=== PATIENT | male | born 1945 | race Caucasian/White ===

== ENCOUNTER 2023-02-12 08:01 | Emergency (ER) | payer OTHER, SELFPAY ==
[2023-02-12] VITALS (22 sets, daily range): BP systolic 78–127; BP diastolic 55–84; PULSE 63–136; RESP 6–26; TEMP 36.4; O2SAT 84–99; BMI 23.4
--- NOTE | 2023-02-12 08:04 | ECG_ITS ---
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
[2023-02-12] MEDS: DILTIAZEM HCL 25 MG/5 ML VIAL 15 MG IV (08:27)
[2023-02-12] MEDS: 0.9 % SODIUM CHLORIDE 1,000 ML 1000 ML IV (08:28)
--- NOTE | 2023-02-12 08:35 | ECG_ITS ---
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
[2023-02-12 08:36] LABS: Basophils Percent Auto 0.4 % (0.2-2.0); Eosinophils Absolute Auto 0.1 10^3/uL (0.0-0.7); Eosinophils Percent Auto 0.7 % (0.9-7.0); Hematocrit 33.5 % (42.0-54.0); Hemoglobin 11.1 g/dL (14.0-18.0); Immature Granulocytes Abs Auto 0.03 10^3/uL (0.00-0.03); Immature Granulocytes Pct Auto 0.3 % (0.0-0.5); Lymphocytes Absolute Auto 2.9 10^3/uL (1.2-3.8); Lymphocytes Percent Auto 27.3 % (20.5-60.0); Mean Corpuscular HGB Conc 33.1 g/dL (29.9-35.2); Mean Corpuscular Hemoglobin 33.3 pg (25.9-34.0); Mean Corpuscular Volume 100.6 fL (80.0-94.0); Mean Platelet Volume 9.8 fL (9.5-13.5); Monocytes Absolute Auto 0.8 10^3/uL (0.3-0.8); Monocytes Percent Auto 7.2 % (1.7-12.0); Neutrophils Absolute Auto 6.9 10^3/uL (1.4-6.5); Neutrophils Percent Auto 64.1 % (43.0-75.0); Platelet Count 185 10^3/uL (150-450); Red Blood Count 3.33 10^6/uL (4.70-6.10); Red Cell Distribution Width 14.3 % (11.0-15.0); White Blood Count 10.8 10^3/uL (4.0-11.0)
--- NOTE | 2023-02-12 08:36 | ECG_ITS ---
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
[2023-02-12 09:08] LABS: Alanine Aminotransferase 15 U/L (16-63); Albumin Globulin Ratio 0.9; Albumin Level 3.1 g/dL (3.4-5.0); Alkaline Phosphatase 82 U/L (46-116); Anion Gap 11.7; Aspartate Amino Transferase 15 U/L (15-37); BUN Creatinine Ratio 18.9; Bilirubin Total 0.4 mg/dL (0.2-1.0); Calcium 8.7 mg/dL (8.5-10.1); Carbon Dioxide 28.4 mmol/L (21.0-32.0); Chloride 102 mmol/L (98-107); Estimated GFR (African America >60 (>=60); Estimated GFR (Non-African Ame >60 (>=60); Globulin 3.4 g/dL; Glucose 160 mg/dL (74-106); Potassium 4.1 mmol/L (3.5-5.1); Sodium 138 mmol/L (136-145); Total Protein 6.5 g/dL (6.4-8.2); Troponin I High Sensitivity 12.7 pg/mL (4.0-76.1)
[2023-02-12 09:12] LABS: Lactate/Lactic Acid 1.1 mmol/L (0.4-2.0)
--- NOTE | 2023-02-12 09:35 | XR_ITS ---
The [address] [address] Patient Name: TADEO THOMAS MRN: [id number] date: 1945 Sex: M Assigned Patient Location: ER Current Patient Location: ER Accession/Order Number: [id number] Exam Date: 02/12/2023 09:42 Report Date: 02/12/2023 09:55 At the request of: CARLINE COWAN Procedure: XR chest 1V EXAM: XR chest 1V HISTORY: . TACHYCARDIA . COMPARISON: None TECHNIQUE: Single view of the chest. FINDINGS: Heart is normal in size. Bipolar pacing device is noted. Vascularity is unremarkable. Lungs are free of focal infiltrates. There is an azygous lobe noted. Arthritic changes of both shoulders are noted. XR/XR chest 1V Impression: 1. Pacer in place. 2. No acute heart or lung disease identified. Electronically authenticated by: LA SAGE Date: 02/12/2023 09:55
[2023-02-12 10:16] LABS: Bilirubin Urine NEGATIVE (NEGATIVE); Blood Urine NEGATIVE (NEGATIVE); Clarity Urine CLEAR (CLEAR); Color Urine LT. YELLOW (YELLOW); Glucose Urine UA NEGATIVE (NEGATIVE); Ketones Urine NEGATIVE (NEGATIVE); Leukocyte Esterase Urine NEGATIVE (NEGATIVE); Nitrite Urine NEGATIVE (NEGATIVE); Protein Urine NEGATIVE (NEG/TRACE); Urine Microscopic Indicated NO; Urobilinogen Urine 0.2 EU/dL (0.2-1.0)
--- NOTE | 2023-02-12 10:17 | ED.GENADUL1 ---
HPI - General Adult General Chief complaint: Weakness Stated complaint: HYPOTENSION, TACHYCARDIA Time Seen by Provider: 02/12/23 08:04 Source: patient Mode of arrival: ambulance History of Present Illness HPI narrative: the patient was sent from the [place] for evaluation after he was found to be tachycardic with hypotension. This morning meds were held because he was hypotensive. prior medical history includes atrial flutter with pacemaker placement in September. he denied any complaints, telling us that he feels the same way every day. He does have some dementia. Related Data Home Medications Medication Instructions Recorded Confirmed alogliptin 25 mg tablet 25 mg PO DAILY 02/12/23 02/12/23 apixaban 5 mg tablet (Eliquis) 5 mg PO BID 02/12/23 02/12/23 diltiazem HCl 30 mg tablet 120 mg PO DAILY 02/12/23 02/12/23 flecainide 50 mg tablet 50 mg PO Q12H 02/12/23 02/12/23 glipizide 10 mg tablet 10 mg PO BID 02/12/23 02/12/23 metformin 1,000 mg tablet 1,000 mg PO DAILY 02/12/23 02/12/23 pioglitazone 30 mg tablet 30 mg PO DAILY 02/12/23 02/12/23 pravastatin 80 mg tablet 80 mg PO DAILY 02/12/23 02/12/23 Allergies Allergy/AdvReac Type Severity Reaction Status Date / Time No Known Drug Allergies Allergy Verified 02/12/23 08:15 [facility] Medical History (Updated 02/12/23 @ 10:31 by Carline Steen) Atrial flutter ?I48.92 - Unspecified atrial flutter (ICD-10) Dementia ?F03.90 - Unspecified dementia, unspecified severity, without behavioral disturbance, psychotic disturbance, mood disturbance, and anxiety (ICD-10) Diabetes ?E11.9 - Type 2 diabetes mellitus without complications (ICD-10) Hyperlipemia ?E78.5 - Hyperlipidemia, unspecified (ICD-10) Hypotension ?I95.9 - Hypotension, unspecified (ICD-10) Pacemaker ?Z95.0 - Presence of cardiac pacemaker (ICD-10) Exam Narrative Exam Narrative: Nurses notes and vital signs reviewed and patient is not hypoxic. afebrile General: Well-appearing and in no apparent distress. Skin: Warm, dry, no pallor noted. No rash. Head: Normocephalic, atraumatic. Neck: Supple, non-tender. Eye: Pupils are equal, round and EOMI. No scleral icterus. Cardiovascular: rapid and irregular heart rate. Respiratory: No accessory muscle use or respiratory distress. Lungs are clear to auscultation, no wheezing, rales or rhonchi Musculoskeletal: normal ROM, no calf or popliteal tenderness, no lower extremity edema/swelling GI: Abdomen is soft, non-distended. Normal bowel sounds. No tenderness to palpation. No rebound, guarding, or rigidity noted. Neurological: A&O x4. No cranial nerve dysfunction observed. No truncal ataxia. Moves all extremities. Sensation intact. Psychiatric: Cooperative and interactive. Normal mood and affect. Constitutional Vital Signs, click to edit/add: Last Vital Signs Temp 97.5 F L 02/12/23 08:05 Pulse 72 02/12/23 10:30 Resp 11 L 02/12/23 10:30 BP 103/63 02/12/23 10:20 Pulse Ox 99 02/12/23 10:30 O2 Del Method Room Air 02/12/23 08:18 Course Vital Signs Vital signs: Vital Signs Temperature 97.5 F L 02/12/23 08:05 Pulse Rate 136 H 02/12/23 08:05 Respiratory Rate 18 02/12/23 08:05 Blood Pressure 98/68 02/12/23 08:05 Pulse Oximetry 94 L 02/12/23 08:05 Oxygen Delivery Method Room Air 02/12/23 08:05 Temperature 97.5 F L 02/12/23 08:05 Pulse Rate 72 02/12/23 10:30 Respiratory Rate 11 L 02/12/23 10:30 Blood Pressure 103/63 02/12/23 10:20 Pulse Oximetry 99 02/12/23 10:30 Oxygen Delivery Method Room Air 02/12/23 08:18 Medical Decision Making MDM Narrative Medical decision making narrative: the patient was found to be in rapid atrial flutter. he just got to the [place] last night and apparently did not have his flecainide, which she takes for rate control. Patient was placed on tig welder and EKG obtained. Blood drawn and sent for evaluation. he received normal saline IV fluid. He also got a dose of Cardizem, which converted him to rate controlled atrial flutter. remainder of his testing was unremarkable. I spoke with the patient's . He has history of atrial flutter and his vital signs including heart rate and blood pressure normalized. I do not find any sign of infection on evaluation. Patient discharged back to the [place] and will remain on his prescribed medications. Lab Data Lab results reviewed: Yes I reviewed the patient's lab results Labs: Lab Results 02/12/23 02/12/23 Range/Units 08:22 10:00 WBC 10.8 (4.0-11.0) 10^3/uL RBC 3.33 L (4.70-6.10) 10^6/uL Hgb 11.1 L (14.0-18.0) g/dL Hct 33.5 L (42.0-54.0) % MCV 100.6 H (80.0-94.0) fL MCH 33.3 (25.9-34.0) pg MCHC 33.1 (29.9-35.2) g/dL RDW 14.3 (11.0-15.0) % Plt Count 185 (150-450) 10^3/uL MPV 9.8 (9.5-13.5) fL Neut % (Auto) 64.1 (43.0-75.0) % Lymph % (Auto) 27.3 (20.5-60.0) % [place] % (Auto) 7.2 (1.7-12.0) % Eos % (Auto) 0.7 L (0.9-7.0) % Baso % (Auto) 0.4 (0.2-2.0) % Neut # (Auto) 6.9 H (1.4-6.5) 10^3/uL Lymph # (Auto) 2.9 (1.2-3.8) 10^3/uL [place] # (Auto) 0.8 (0.3-0.8) 10^3/uL Eos # (Auto) 0.1 (0.0-0.7) 10^3/uL Baso # (Auto) 0.0 (0.0-0.1) 10^3/uL Abs Immat Gran (auto) 0.03 (0.00-0.03) 10^3/uL Imm/Tot Granulo (auto) 0.3 (0.0-0.5) % Sodium 138 (136-145) mmol/L Potassium 4.1 (3.5-5.1) mmol/L Chloride 102 (98-107) mmol/L Carbon Dioxide 28.4 (21.0-32.0) mmol/L Anion Gap 11.7 BUN 18.0 (7.0-18.0) mg/dL Creatinine 0.95 (0.70-1.30) mg/dL Est GFR ( Amer) >60 (>=60) Est GFR (Non-Af Amer) >60 (>=60) BUN/Creatinine Ratio 18.9 Glucose 160 H (74-106) mg/dL Lactate 1.1 (0.4-2.0) mmol/L Calcium 8.7 (8.5-10.1) mg/dL Total Bilirubin 0.4 (0.2-1.0) mg/dL AST 15 (15-37) U/L ALT 15 L (16-63) U/L Alkaline Phosphatase 82 (46-116) U/L Troponin I High Sens 12.7 (4.0-76.1) pg/mL NT-Pro-B Natriuret Pep 233.0 (<=1800.0) pg/mL Total Protein 6.5 (6.4-8.2) g/dL Albumin 3.1 L (3.4-5.0) g/dL Globulin 3.4 g/dL Albumin/Globulin Ratio 0.9 Urine Color Lt. yellow (YELLOW) Urine Clarity Clear (CLEAR) Urine pH 6.0 (5.0-9.0) Ur Specific [place] 1.010 (1.005-1.025) Urine Protein Negative (NEG/TRACE) mg/dL Urine Glucose (UA) Negative (NEGATIVE) mg/dL Urine Ketones Negative (NEGATIVE) mg/dL Urine Occult Blood Negative (NEGATIVE) Urine Nitrite Negative (NEGATIVE) Urine Bilirubin Negative (NEGATIVE) Urine Urobilinogen 0.2 (0.2-1.0) EU/dL Ur Leukocyte Esterase Negative (NEGATIVE) Imaging Data Chest x-ray: Radiologist's impression: Patient Name: TADEO THOMAS MRN: [id number] date: 1945 Sex: M Assigned Patient Location: ER Current Patient Location: ER Accession/Order Number: [id number] Exam Date: 02/12/2023 09:42 Report Date: 02/12/2023 09:55 At the request of: CARLINE STEEN Procedure: XR chest 1V EXAM: XR chest 1V HISTORY: . TACHYCARDIA . COMPARISON: None TECHNIQUE: Single view of the chest. FINDINGS: Heart is normal in size. Bipolar pacing device is noted. Vascularity is unremarkable. Lungs are free of focal infiltrates. There is an azygous lobe noted. Arthritic changes of both shoulders are noted. Impression: 1. Pacer in place. 2. No acute heart or lung disease identified. Electronically authenticated by: LA SAGE Date: 02/12/2023 09:55 ECG Data Attestation: I personally reviewed and interpreted this ECG as follows: Interpretation: EKG interpretation: Emergency Department physician interpretation. rapid atrial fibrillation at 129bpm. wide QRS suggesting right bundle-branch block. He does have a pacemaker. #2 EKG interpretation: Emergency Department physician interpretation. paced rhythm with bouts of rapid atrial fibrillation at 126bpm. and bundle branch block is once again present. #3 EKG interpretation: Emergency Department physician interpretation. normal sinus rhythm at 70bpm with occasional electronic pacing. No ST segment elevation or depression. Discharge Plan Discharge Chief Complaint: Weakness Clinical Impression: Atrial fibrillation with rapid ventricular response Patient Disposition: Home, Self-Care Time of Disposition Decision: 10:31 Prescriptions / Home Meds: No Action diltiazem HCl 30 mg tablet 120 mg PO DAILY metformin 1,000 mg tablet 1,000 mg PO DAILY pioglitazone 30 mg tablet 30 mg PO DAILY Eliquis 5 mg tablet 5 mg PO BID alogliptin 25 mg tablet 25 mg PO DAILY flecainide 50 mg tablet 50 mg PO Q12H glipizide 10 mg tablet 10 mg PO BID pravastatin 80 mg tablet 80 mg PO DAILY Instructions: A-fib (Atrial Fibrillation) (ED) Stand Alone Forms: Portal Instructions Referrals: Physician,Non-Staff, [Physician] - 1 week Discharge Date/Time: 02/12/23 10:40
== END 2023-02-12 10:40 | disposition home or self-care (01) ==
PROVIDERS: Emergency Provider Emergency Medicine; PCP Internal Medicine
DX: I48.91 Unspecified atrial fibrillation (principal); F03.90 Unspecified dementia, unspecified severity, without behavioral disturbance, psychotic disturbance, mood disturbance, and anxiety; E11.9 Type 2 diabetes mellitus without complications; E78.5 Hyperlipidemia, unspecified; I48.92 Unspecified atrial flutter; Z95.0 Presence of cardiac pacemaker; Z79.01 Long term (current) use of anticoagulants; Z79.84 Long term (current) use of oral hypoglycemic drugs; Z79.899 Other long term (current) drug therapy
CPT/HCPCS: 36415; 71045; 80053; 81003; 83605; 83880; 84484; 85025; 87040; 93005; 96374; 99285

== ENCOUNTER 2023-03-18 16:26 | Emergency (ER) | payer OTHER, SELFPAY ==
--- OUTSIDE RECORDS SUMMARY | 2023-03-18 16:39 | XMS_ITS | CCD ---
Author Name Unknown Address [address] [place] [address] Organization [facility] Care Team Providers Care Cardiograph Operator Name Role Phone MD Aracelis Pedroza Primary Care Provider MD Aracelis Pedroza Attending Provider DO Uriah Wang Emergency Provider [phone] MD Charlie Varner Admit Provider MD Charlie Varner Attending Provider FLORENCE Gray Other Provider Unavailable DO Farshad Varela Other Provider [phone] MD Fior Saleem Other Provider MD Ketan Lucero Other Provider MD Samra Garza Other Provider MD Kelvin Gil Other Provider RICARDO Landon Other Provider MD Cheryl Das Other Provider MD Nabeel Ojdea Other Provider MD Nikolay Barragan Other Provider Velma [facility] Adelaida Goodson Other Provider [phone] MD Izabella Henderson Other Provider Aracelis Pedroza Unavailable Unavailable Unavailable Dr. Aracelis Pedroza Primary Care UnavailOlga Mendes Attending Unavailable Dr. Aracelis Pedroza Primary Care Unavailab Olga Lopez Attending Unavailable Olga Wyatt Referring Unavailable Dr. Aracelis Pedroza Primary Care Unavailab Olga Lopez Referring Unavailable Preston, Dr. Aracelis Mane Primary Care Unavailab Olga Lopez Attending Unavailable Preston, Dr. Aracelis Mane Primary Care Unavailab ric Lucero II, Dr. Ketan Yen Attending Unavailable Emily RM, Dr. Ketan Yen Referring Unavailable Preston, Dr. Aracelis Mane Primary Care Unavailab ric Lucero II, Dr. Ketan Yen Attending Unavailable Aracelis Pedroza MD Primary Care Provider MD Aracelis Pedroza Primary Care Provider [phone] MD Ketan Lucero Attending Provider DO Nicolas Zavala Emergency Provider MD Jennifer Morris Admit Provider MD Jennifer Cruz Attending Provider [phone] DO Nicolas Zavala Emergency Provider MD Jennifer Morris Admit Provider MD Miguel Hinson Attending Provider [phone] Miguel Hinson Attending Unavailable Shelly Gray Consulting Unavailable [facility] Primary Care Unavailable Alahmjaneth, Alaa Admitting Unavailable Farshad Varela Consulting Unavailable Stiven, Fior Consulting Unavailable Ketan Lucero Consulting Unavail able Samra Garza Consulting Unavailable Kelvin Gil Consulting Unavailab Olga Herrera Consulting Unavailable Cheryl Das Consulting Unavailable Nabeel Ojeda Consulting Unavailab Nikolay Nuñez Consulting Unavailable Adelaida Carreon Consulting Unavailable Izabella Henderson Consulting Unavailable Aracelis Pedroza Admitting Unavailable Aracelis Pedroza Primary Care Unavailable Aracelis Pedroza Attending Unavailable Ketan Lucero Attending Unavail able [facility] Ketan Lucero Admitting Unavail able Ketan Lucero Attending Unavail able Preston Aracelis Primary Care Unavailable Ketan Lucero Admitting Unavail able Telly, Charlie Admitting Unavailable Telly, Charlie Attending Unavailable Shelly Gray Consulting Unavailable [facility] Primary Care Unavailable Farshad Varela Consulting Unavailable Fior Saleem Consulting Unavailable Ketan Lucero Consulting Unavail able Samra Garza Consulting Unavailable Kelvin Gil Consulting Unavailab Olga Herrera Consulting Unavailable Cheryl Das Consulting Unavailable Nabeel Ojeda Consulting Unavailab Nikolay Nuñez Consulting Unavailable Adelaida Carreon Consulting Unavailable Izabella Henderson Consulting Unavailable KETAN LUCERO Attending Unavailable ARACELIS PEDROZA Primary Care Unavailable KETAN LUCERO Attending Unavailable SAMRA GARZA Referring Unavailable ARACELIS PEDROZA Primary Care Unavailable Unavailable Unavailable Unavailable Medications Current Medications Medication Drug Class(es) Dates Sig (Normalized) Sig (Original) alogliptin 25 mg oral tablet (14 sources) Start: 09-14-2022 take 25 mg by mouth once daily Alogliptin Active 25 MG PO Daily September 13, 2022 11:00pm take 1 tablet by mouth once kyleigh y Alogliptin Benzoate TABS TAKE 1 TABLET BY MOUTH ONCE DAILY Quantity: 0 Refills: 0 Ordered: 25-Sep-2022 DO Active apixaban 5 mg oral tablet (12 sources) Factor Xa Inhibitor Start: 03-01-2023 End: 02-29-2024 take 1 tablet by mouth twice daily apixaban (Eliquis) 5 mg tablet Indications: Atrial fibrillation, unspecified type (CMS/HCC) Take 1 tablet (5 mg) by mouth 2 times a day. 60 tablet 3 03/01/2023 02/29/2024 Active Start: 02-02-2023 take 5 mg by mouth twice daily Apixaban Active 5 MG PO Twice daily February 02, 2023 12:00am Start: 09-30-2022 End: 03-01-2023 take 1 tablet by mouth twice daily Eliquis 5 MG Oral Tablet Take 1 tablet twice daily Quantity: 60 Refills: 0 Ordered: 30-Sep-2022 Ketan Lucero MD Start : 30-Sep-2022 Active new start dilTIAZem hydrochloride 30 mg oral tablet (15 sources) Calcium Channel Josefa Start: 02-02-2023 take 120 mg by mouth once daily Diltiazem Hcl Active 120 MG PO Daily February 02, 2023 1:15pm Start: 11-25-2022 End: 01-07-2024 take 1 capsule by mouth once daily dilTIAZem CD (Cardizem CD) 120 mg 24 hr capsule Indications: Hypertension, benign Take 1 capsule (120 mg) by mouth once daily. 90 capsule 3 01/07/2023 03/01/2023 Discontinued (Side effects) Start: 09-18-2022 End: 02-02-2023 take 30 mg by mouth four times daily Diltiazem Hcl Discontinued 30 MG PO Four times daily 120 September 17, 2022 11:00pm February 02, 2023 1:05pm flecainide acetate 50 mg oral tablet (3 sources) Antiarrhythmic Start: 02-19-2023 End: 02-29-2024 take 1 tablet by mouth twice daily flecainide (Tambocor) 50 mg tablet Indications: Atrial fibrillation, unspecified type (CMS/HCC) Take 1 tablet (50 mg) by mouth 2 times a day. 180 tablet 3 03/01/2023 02/29/2024 Active Start: 02-05-2023 take 50 mg by mouth every twelve hours Flecainide Active 50 MG PO Q12H 60 February 05, 2023 12:00am glipiZIDE 10 mg oral tablet (10 sources) Sulfonylurea Start: 02-02-2023 take 10 mg by mouth twice daily Glipizide Active 10 MG PO Twice daily February 02, 2023 12:00am take 1 tablet by mouth once kyleigh y glipiZIDE 10 MG Oral Tablet TAKE 1 TABLET DAILY DIRECTED. Quantity: 0 Refills: 0 Ordered: 21-Oct-2022 DO Active metFORMIN hydrochloride 1000 mg oral tablet (10 sources) Biguanide Start: 02-02-2023 take 1000 mg by mouth once daily Metformin Active 1000 MG PO Daily February 02, 2023 12:00am take 1 tablet by mouth twice lilo ly metFORMIN (Glucophage) 1,000 mg tablet Take 1 tablet (1,000 mg) by mouth 2 times a day. 0 Active take 2 tablets by mouth once lilo ly metFORMIN (Glucophage) 1,000 mg tablet Take 2 tablets (2,000 mg) by mouth once daily. 0 Active multivitamin tablet (2 sources) take 1 tablet by mouth once daily multivitamin tablet Take 1 tablet by mouth once daily. 0 Active pioglitazone 30 mg oral tablet (14 sources) Peroxisome Proliferator Receptor alpha Agonist, Peroxisome Proliferator Receptor gamma Agonist, Thiazolidinedione Start: 023 take 30 mg by mouth once daily Pioglitazone Active 30 MG PO Daily September 13, 2022 11:00pm pravastatin sodium 80 mg oral tablet (14 sources) HMG-CoA Reductase Inhibitor Start: 023 take 80 mg by mouth once daily Pravastatin Active 80 MG PO Daily September 13, 2022 11:00pm vitamin b12 1 mg extended release oral tablet (8 sources) Vitamin B12 take 1 tablet by mouth once daily cyanocobalamin, vitamin B-12, (Vitamin B-12) 1,000 mcg tablet extended release Take 1 tablet (1,000 mcg) by mouth once daily. 0 Active vitamin e 180 mg oral capsule (2 sources) take 1 capsule by mouth once daily vitamin E 180 mg (400 unit) capsule Take 1 capsule (400 Units) by mouth once daily. 0 Active Completed/Discontinued Medications Medication Drug Class(es) Dates Sig (Normalized) Sig (Original) aspirin 81 mg delayed release oral tablet (4 sources) Platelet Aggregation Inhibitor, Nonsteroidal Anti-inflammatory Drug take 1 tablet by mouth once daily Aspirin 81 MG Oral Tablet Delayed Release TAKE 1 TABLET DAILY. Quantity: 90 Refills: 3 Ordered: 21-Oct-2022 DO Active cholecalciferol 0.125 mg oral tablet (4 sources) Vitamin D take 1 tablet by mouth once daily Vitamin D3 125 MCG (5000 UT) Oral Tablet Take 1 tablet daily Quantity: 90 Refills: 3 Ordered: 21-Oct-2022 DO Active clindamycin 300 mg oral capsule (3 sources) Lincosamide Antibacterial Start: 09-18-2022 End: 02-02-2023 take 600 mg by mouth three times daily Clindamycin Hcl Discontinued 600 MG PO Three times daily 02 13September 17, 2022 11:00pm February 02, 2023 1:03pm digoxin 0.125 mg oral tablet (10 sources) Cardiac Glycoside Start: 09-18-2022 End: 02-11-2023 take 125 ug by mouth once daily Digoxin Discontinued 125 MCG PO Daily September 17, 2022 11:00pm February 11, 2023 12:48pm folic acid 0.8 mg oral tablet (6 sources) Start: 09-14-2022 End: 02-02-2023 take 0.8 mg by mouth once daily Folic Acid Discontinued 0.8 MG PO Daily September 13, 2022 11:00pm February 02, 2023 1:03pm take 1 tablet by mouth once kyleigh y Folic Acid 1 MG Oral Tablet TAKE 1 TABLET DAILY. Quantity: 0 Refills: 0 Ordered: 25-Sep-2022 DO Active losartan potassium 25 mg oral tablet (10 sources) Angiotensin 2 Receptor Josefa Start: 09-14-2022 End: 02-02-2023 take 25 mg by mouth once daily Losartan Discontinued 25 MG PO Daily September 13, 2022 11:00pm February 02, 2023 7:00pm methylphenidate hydrochloride 5 mg oral tablet (4 sources) Central Nervous System Stimulant Start: 09-14-2022 End: 09-14-2022 take 1 tablet by mouth twice daily Methylphenidate Hcl (Ritalin) 5 mg Tablet Discontinued 5 MG PO Twice daily September 13, 2022 11:00pm September 14, 2022 10:29pm 24 hr metoprolol succinate 50 mg extended release oral tablet (8 sources) beta-Adrenergic Josefa Start: 09-18-2022 End: 02-02-2023 take 50 mg by mouth once daily Metoprolol Succinate Discontinued 50 MG PO Daily September 17, 2022 11:00pm February 02, 2023 7:00pm Multi Vitamin TABS (6 sources) Multi Vitamin TA BS TAKE 1 TABLET DAILY. Quantity: 0 Refills: 0 Ordered: 21-Oct-2022 DO Active zolpidem tartrate 5 mg oral tablet (6 sources) gamma-Aminobutyri c Acid-ergic Agonist Start: 09-14-2022 End: 02-02-2023 take 5 mg by mouth once daily at bedtime Zolpidem Discontinued 5 MG PO Daily at bedtime September 13, 2022 11:00pm February 02, 2023 1:05pm Problems Active Problems Problem Classification Problem Date Documented Date Episodic/Chronic Cardiac dysrhythmias (20 sources) Ventricular bigeminy; Translations: [Other specified cardiac arrhythmias] Onset: 09-25-2022 Resolved: 01-07-2023 09-14-2022 Chronic Cardiac dysrhythmias (7 sources) Tachyarrhythmia ; Translations: [Tachycardia, unspecified] 09-14-2022 Episodic Conduction disorders (16 sources) Cardiac pacemaker in situ; Translations: [Cardiac pacemaker in situ] Onset: 11-12-2022 01-07-2023 Chronic Diabetes mellitus without complication (11 sources) Type 2 diabetes mellitus without complication; Translations: [Diabetes mellitus without mention of complication, type II or unspecified type, not stated as uncontrolled] Onset: 01-06-2023 01-06-2023 Chronic Disorders of lipid metabolism (15 sources) Mixed hyperlipidemia; Translations: [Mixed hyperlipidemia] Onset: 01-06-2023 01-07-2023 Chronic Essential hypertension (13 sources) Benign hypertension; Translations: [Benign essential hypertension] Onset: 01-06-2023 01-07-2023 Chronic Other aftercare (10 sources) Drug therapy finding; Translations: [Long-term (current) use of anticoagulants] Onset: 01-06-2023 01-07-2023 Episodic Other aftercare (2 sources) supervisor intermediates (current) use of anticoagulants; Translations: [USP (current) use of anticoagulants] Onset: 01-06-2023 Episodic Other circulatory disease (2 sources) Low blood pressure; Translations: [Hypotension, unspecified] 02-02-2023 Episodic Other circulatory disease (2 sources) Hypotension, unspecified; Translations: [Hypotension, unspecified] 02-02-2023 Episodic Other nutritional; endocrine; and metabolic disorders (8 sources) Overweight in adulthood with body mass index of 25 or more but less than 30; Translations: [Overweight] Onset: 01-06-2023 01-06-2023 Episodic Other screening for suspected conditions (not mental disorders or infectious disease) (17 sources) Echocardiogram abnormal; Translations: [Nonspecific (abnormal) findings on radiological and other examination of other intrathoracic organs] Onset: 11-12-2022 01-06-2023 Episodic Screening and history of mental health and substance abuse codes (8 sources) Ex-smoker; Translations: [Personal history of tobacco use] Onset: 01-06-2023 01-06-2023 Episodic Comment on above: quit in the s; Unclassified (1 source) Contact with and (suspected) exposure to COVID-19; Translations: [Contact with and (suspected) exposure to COVID-19] Onset: 11-12-2022 Unclassified (1 source) Tachycardia, unspecified; Translations: [Tachycardia, unspecified] Onset: 02-03-2023 Unclassified (1 source) Encounter for checking and testing of cardiac pacemaker pulse generator [battery]; Translations: [Encounter for checking and testing of cardiac pacemaker pulse generator [battery]] Onset: 11-17-2022 Unclassified (1 source) Unspecified abnormalities of heart beat; Translations: [Unspecified abnormalities of heart beat] Onset: 09-11-2022 Past or Other Problems Problem Classification Problem Date Documented Da te Episodic/Chronic Syncope (7 sources) Near syncope; Translations: [Syncope and collapse] Onset: 09-14-2022 09-14-2022 Episodic Unclassified (2 sources) Onset: 01-07-2023 Resolved: 03-01-2023 01-07-2023 Results Test Name Value Interpretation Reference Range Facility ECG 12 [place] 03-03-2023 Atrial ventricular p aced rhythm with occasional PVCs Left axis deviation Conduction abnormality predominantly due to pacing QTc difficult to assess, but appears to be 485 ms. [facility] Work Phone: Alanine aminotransferase [En zymatic activity/volume] in Serum or PlasmaOrdered By: Miguel Hinson on 02-07-2023 ALT [Catalytic activity/Vol] 11 U/L 7-52 [facility] Albumin [Mass/volume] in Ser um or Plasma by Bromocresol green (BCG) dye binding methoOrdered By: Miguel Hinson on 02-07-2023 Albumin BCG dye [Mass/Vol] 3.7 g/dL 3.5-5.7 [facility] Alkaline phosphatase [Enzyma tic activity/volume] in Serum or PlasmaOrdered By: Miguel Murdockr on 02-07-2023 ALP [Catalytic activity/Vol] 74 U/L 34-104 [facility] Aspartate aminotransferase [ Enzymatic activity/volume] in Serum or PlasmaOrdered By: Miguel Murdockr on 02-07-2023 AST [Catalytic activity/Vol] 13 U/L 13-39 [facility] Basophils Auto (Bld) [#/Vol] Ordered By: Obkatherine Murdockr on 02-07-2023 Basophils (Bld) [#/Vol] 0.0 10*3/uL 0.0-0.2 [facility] Basophils/100 WBC Auto (Bld) Ordered By: Miguel Murdockr on 02-07-2023 Basophils/100 WBC (Bld) 0.2 % . [facility] Bilirubin.total [Mass/volume ] in Serum or PlasmaOrdered By: Objacquidajustino Daromar on 02-07-2023 Bilirubin [Mass/Vol] 0.4 mg/dL 0.3-1.[address] [facility] Calcium [Mass/volume] in Ser um or PlasmaOrdered By: Objacquidajustino Daromar on 02-07-2023 Calcium [Mass/Vol] 8.9 mg/dL 8.6-10.3 [facility] Carbon dioxide, total [Moles /volume] in Serum or PlasmaOrdered By: Objacquidajustino Daromar on 02-07-2023 CO2 [Moles/Vol] 28.3 mmol/L 21.0-31.0 [facility] Chloride [Moles/volume] in S estela or PlasmaOrdered By: Objacquidajustino Daromar on 02-07-2023 Chloride [Moles/Vol] 102 mmol/L 98-[address] [facility] Complete Blood Count Auto Di ffon 02-07-2023 Basophils (Bld) [#/Vol] 0.0 10*3/uL Normal 0.0-0.2 [facility] Comment on above: Result Comment: PERF ORMED BY: [facility] [address] [facility] [address] PATHOLOGIST AUDIOLOGY ASSISTANT KASSANDRA STACK M.D. Performed By: #### C BC, CMP ####[place] [address] [place] [id number] [facility] Basophils/100 WBC (Bld) 0.2 % Normal . [facility] Comment on above: Performed By: #### C BC, CMP ####[facility] [address] [place] [id number] [facility] Eosinophils (Bld) [#/Vol] 0.1 10*3/uL Normal 0.0-0.45 [facility] Comment on above: Performed By: #### C BC, CMP ####[facility] [address] [place] [id number] [facility] Eosinophils/100 WBC (Bld) 0.8 % Normal . [facility] Comment on above: Performed By: #### C BC, CMP ####[address] [address] [facility] Erythrocyte distribution width (RBC) [Ratio] 15.0 % High 12.0-14.8 [facility] Comment on above: Performed By: #### C BC, CMP ####[address] [address] [facility] Hematocrit (Bld) [Volume fraction] 35.2 % Low 38.8-50.0 [facility] Comment on above: Performed By: #### C BC, CMP ####[address] [address] [facility] Hemoglobin (Bld) [Mass/Vol] 11.8 g/dL Low 13.0-17.0 [facility] Comment on above: Performed By: #### C ERICA, CMP ####[address] [address] [facility] Lymphocytes (Bld) [#/Vol] 5.6 10*3/uL High 1.00-4.8 [facility] Comment on above: Performed By: #### C ERICA, CMP ####[place] [id number] [facility] Lymphocytes/100 WBC (Bld) 48.1 % Normal . [facility] Comment on above: Performed By: #### C ERICA, CMP ####[address] [address] [facility] MCH (RBC) [Entitic mass] 33.0 pg Normal 27.5-35.2 [facility] Comment on above: Performed By: #### C BC, CMP ####[address] [address] [facility] MCV (RBC) [Entitic vol] 98.4 fL Normal 83.5-101 [facility] Comment on above: Performed By: #### C BC, CMP ####[place] [id number] [facility] Mean Corpuscular HGB Conc 33.5 g/dL Normal 32.5-35.6 [facility] Comment on above: Performed By: #### C BC, CMP ####[facility] [place] [address] [facility] Monocytes (Bld) [#/Vol] 0.8 10*3/uL Normal 0.0-0.8 [facility] Comment on above: Performed By: #### C ERICA, CMP ####[facility] [place] [address] [facility] Monocytes/100 WBC (Bld) 6.7 % Normal . [facility] Comment on above: Performed By: #### C ERICA, CMP ####[address] [address] [facility] Neutrophils (Bld) [#/Vol] 5.2 10*3/uL Normal 1.8-7.7 [facility] Comment on above: Performed By: #### C ERICA, CMP ####[address] [address] [facility] Neutrophils/100 WBC (Bld) 44.2 % Normal . [facility] Comment on above: Performed By: #### C ERICA, CMP ####[address] [address] [facility] NRBC% 0.2 /100{WBC} Normal 0-0.5 [facility] Comment on above: Performed By: #### C ERICA, CMP ####[place] [address] [place] [address] [facility] Platelet mean volume (Bld) [Entitic vol] 7.8 fL Normal 6.6-10.1 [facility] Comment on above: Performed By: #### C ERICA, CMP ####[address] [address] [facility] Platelets (Bld) [#/Vol] 248 10*3/uL Normal 150-450 [facility] Comment on above: Performed By: #### C ERICA, CMP ####[address] [address] [place] RBC (Bld) [#/Vol] 3.58 10*6/uL Low 3.90-5.60 [facility] Comment on above: Performed By: #### C ERICA, CMP ####[facility] [place] [address] [facility] WBC (Bld) [#/Vol] 11.7 10*3/uL High 4.1-10.5 [facility] Comment on above: Performed By: #### C BC, CMP ####[place] [address] [place] [address] [facility] Comprehensive Metabolic Pane christian 02-07-2023 Albumin [Mass/Vol] 3.7 g/dL Normal 3.5-5.7 [facility] Comment on above: Performed By: #### C BC, CMP ####[place] [address] [place] [address] [facility] Albumin/Globulin [Mass ratio] 1.4 {ratio} Normal [facility] Comment on above: Performed By: #### C BC, CMP ####[address] [address] [facility] ALP [Catalytic activity/Vol] 74 U/L Normal 34-104 [facility] Comment on above: Performed By: #### C BC, CMP ####[address] [address] [facility] ALT [Catalytic activity/Vol] 11 U/L Normal 7-52 [facility] Comment on above: Performed By: #### C BC, CMP ####[place] [address] [place] [address] [facility] Anion gap [Moles/Vol] 11.4 mmol/L Normal 6.0-15.0 [facility] Comment on above: Performed By: #### C BC, CMP ####[address] [address] [facility] AST [Catalytic activity/Vol] 13 U/L Normal 13-39 [facility] Comment on above: Performed By: #### C BC, CMP ####[place] [address] [place] [address] [facility] Bilirubin [Mass/Vol] 0.4 mg/dL Normal 0.3-1.[address] [facility] Comment on above: Performed By: #### C BC, CMP ####[place] [address] [place] [address] [facility] Calcium [Mass/Vol] 8.9 mg/dL Normal 8.6-10.3 [facility] Comment on above: Performed By: #### C BC, CMP ####[place] [address] [place] [address] [facility] Chloride [Moles/Vol] 102 mmol/L Normal 98-[address] [facility] Comment on above: Performed By: #### C BC, CMP ####[address] [address] [facility] CO2 [Moles/Vol] 28.3 mmol/L Normal 21.0-31.0 [facility] Comment on above: Performed By: #### C BC, CMP ####[address] [address] [facility] Creatinine [Mass/Vol] 0.87 mg/dL Normal 0.70-1.30 [facility] Comment on above: Performed By: #### C BC, CMP ####[address] [address] [facility] Creatinine Clr Calc Pharmacy 66.61 [facility] Comment on above: Result Comment: PERF ORMED BY: [facility] [address] [place] [address] PATHOLOGIST AUDIOLOGY ASSISTANT KASSANDRA STACK M.D. Performed By: #### C BC, CMP ####[place] [id number] [facility] GFR/1.73 sq M.predicted MDRD (S/P/Bld) [Vol rate/Area] mL/min/{1.73_m2} [facility] Comment on above: Performed By: #### C BC, CMP ####[place] [id number] [facility] Globulin (S) [Mass/Vol] 2.6 g/dL [facility] Comment on above: Performed By: #### C BC, CMP ####[place] [id number] [facility] Glucose [Mass/Vol] 99 mg/dL Normal 70-100 [facility] Comment on above: Result Comment: [facility] Glucose Reference Range is dependent on time and content of last meal. Glucose of more than 200 mg/dL in a nonstressed, ambulatory subject supports the diagnosis of Diabetes Mellitus. ADA recommended reference range Performed By: #### C BC, CMP ####[place] [address] [place] [address] [facility] Potassium [Moles/Vol] 3.7 mmol/L Normal 3.5-5.1 [facility] Comment on above: Performed By: #### C BC, CMP ####[place] [address] [place] [address] [facility] Protein [Mass/Vol] 6.3 g/dL Low 6.4-8.9 [facility] Comment on above: Performed By: #### C BC, CMP ####[place] [id number] [facility] Sodium [Moles/Vol] 138 mmol/L Normal 136-145 [facility] Comment on above: Performed By: #### C BC, CMP ####[place] [address] [place] [id number] [facility] Urea nitrogen [Mass/Vol] 14 mg/dL Normal 7-25 [facility] Comment on above: Performed By: #### C BC, CMP ####[place] [id number] [facility] Creatinine [Mass/volume] in Serum or PlasmaOrdered By: Miguel Hinson on 02-07-2023 Creatinine [Mass/Vol] 0.87 mg/dL 0.70-1.30 [facility] ECG 12 lead ECGon 02-07-2023 ECG 12 lead ECG [facility] Main [place] [address] [place] [id number] Electrocardiograph Report Signed Patient: Tadeo Thomas MR#: [id number] 0 : 1945 Acct:[id number] Age/Sex: 78 / M ADM Date: 02/03/23 Loc: 3T Room: 7F7998-2 Type: ADM IN Attending Dr: Miguel Hinson MD Ordering Provider: Samra Garza MD Date of Service: 02/07/23 ECG/ECG 12 lead ECG: QTC monitor Copies to: Test Reason : Blood Pressure : / mmHG Vent. Rate : 080 BPM Atrial Rate : 072 BPM P-R Int : 314 ms QRS Dur : 164 ms QT Int : 448 ms P-R-T Axes : 055 050 035 degrees QTc Int : 516 ms wenkenbach AV conduction with occasional ventricular paced beat and atrial couplet Right bundle branch block Abnormal ECG When compared with ECG of 06-FEB-2023 08:02, Significant changes have occurred Confirmed by ARACELIS PERKINS DO ([id number]) on 02/07/2023 9:34:03 PM Referred By: Electronically Signed By:ARACELIS PERKINS DO Transcribed By: MUS Signed By Aracelis Perkins DO 02/07 Normal [facility] Eosinophils Auto (Bld) [#/Vo l]Ordered By: Miguel Hinson on 02-07-2023 Eosinophils (Bld) [#/Vol] 0.1 10*3/uL 0.0-0.45 [facility] Eosinophils/100 WBC Auto (Bl d)Ordered By: Miguel Hinson on 02-07-2023 Eosinophils/100 WBC (Bld) 0.8 % . [facility] Erythrocyte distribution wid th Auto (RBC) [Ratio]Ordered By: Miguel Hinson on 02-07-2023 Erythrocyte distribution width (RBC) [Ratio] 15.0 % 12.0-14.8 [facility] Globulin Calc (S) [Mass/Vol] Ordered By: Miguel Hinson on 02-07-2023 Globulin (S) [Mass/Vol] 2.6 g/dL [facility] Glucose [Mass/volume] in Ser um or PlasmaOrdered By: Miguel Hinson on 02-07-2023 Glucose [Mass/Vol] 99 mg/dL 70-100 [facility] Comment on above: ADA recommended refe rence rangeRandom Glucose Reference Range is dependent on time and content of last meal. Glucose of more than 200 mg/dL in a nonstressed, ambulatory subject supports the diagnosis of Diabetes Mellitus. Hematocrit Auto (Bld) [Volum e fraction]Ordered By: Miguel Hinson on 02-07-2023 Hematocrit (Bld) [Volume fraction] 35.2 % 38.8-50.0 [facility] Hemoglobin [Mass/volume] in BloodOrdered By: Miguel Hinson on 02-07-2023 Hemoglobin (Bld) [Mass/Vol] 11.8 g/dL 13.0-17.0 [facility] Leukocytes [#/volume] correc ale for nucleated erythrocytes in Blood by Automated counOrdered By: Miguel Hinson on 02-07-2023 WBC corrected for nucl RBC Auto (Bld) [#/Vol] 11.7 10*3/uL 4.1-10.5 [facility] Lymphocytes Auto (Bld) [#/Vo l]Ordered By: Miguel Stevensomar on 02-07-2023 Lymphocytes (Bld) [#/Vol] 5.6 10*3/uL 1.00-4.8 [facility] Lymphocytes/100 WBC Auto (Bl d)Ordered By: Miguel Hinson on 02-07-2023 Lymphocytes/100 WBC (Bld) 48.1 % . [facility] MCH Auto (RBC) [Entitic mass ]Ordered By: Miguel Stevensomasabas on 02-07-2023 MCH (RBC) [Entitic mass] 33.0 pg 27.5-35.2 [facility] MCHC Auto (RBC) [Mass/Vol]Or dered By: Miguel Stevensomar on 02-07-2023 MCHC (RBC) [Mass/Vol] 33.5 g/dL 32.5-35.6 [facility] MCV Auto (RBC) [Entitic vol] Ordered By: Miguel Stevensomar on 02-07-2023 MCV (RBC) [Entitic vol] 98.4 fL 83.5-101 [facility] Monocytes Auto (Bld) [#/Vol] Ordered By: Miguel Stevensomar on 02-07-2023 Monocytes (Bld) [#/Vol] 0.8 10*3/uL 0.0-0.8 [facility] Monocytes/100 WBC Auto (Bld) Ordered By: Obkatherine Stevensomar on 02-07-2023 Monocytes/100 WBC (Bld) 6.7 % . [facility] Neutrophils Auto (Bld) [#/Vo l]Ordered By: Obkatherine Stevensomar on 02-07-2023 Neutrophils (Bld) [#/Vol] 5.2 10*3/uL 1.8-7.7 [facility] Neutrophils/100 WBC Auto (Bl d)Ordered By: Obkatherine Stevensomar on 02-07-2023 Neutrophils/100 WBC (Bld) 44.2 % . [facility] No Panel InformationOrdered By: Miguel Stevensomar on 02-07-2023 Estimated GFR (CKD-EPI) > 60.0 mL/Min [facility] Creatinine Clearance (Chem 66.61 [facility] Nucleated erythrocytes [Pres ence] in Blood by Automated countOrdered By: Miguel Stevensomar on 02-07-2023 Nucleated RBC Auto Ql (Bld) 0.2 /100{WBC} 0-0.5 [facility] Platelet mean volume Auto (B ld) [Entitic vol]Ordered By: Miguel Stevensomar on 02-07-2023 Platelet mean volume (Bld) [Entitic vol] 7.8 fL 6.6-10.1 [facility] Platelets Auto (Bld) [#/Vol] Ordered By: Obkatherine Stevensomar on 02-07-2023 Platelets (Bld) [#/Vol] 248 10*3/uL 150-450 [facility] Potassium [Moles/volume] in Serum or PlasmaOrdered By: Obkatherine Stevensomar on 02-07-2023 Potassium [Moles/Vol] 3.7 mmol/L 3.5-5.1 [facility] Protein [Mass/volume] in Ser um or PlasmaOrdered By: Obkatherine Stevensomar on 02-07-2023 Protein [Mass/Vol] 6.3 g/dL 6.4-8.9 [facility] RBC Auto (Bld) [#/Vol]Ordere d By: Objacquidajustino Stevensomar on 02-07-2023 RBC (Bld) [#/Vol] 3.58 10*6/uL 3.90-5.60 [facility] Serum or plasma albumin/glob ulin mass ratioOrdered By: Objacquidah Daromar on 02-07-2023 Albumin/Globulin [Mass ratio] 1.4 {ratio} [facility] Serum or plasma anion gap de terminationOrdered By: Objacquidah Daromar on 02-07-2023 Anion gap [Moles/Vol] 11.4 mmol/L 6.0-15.0 [facility] Sodium [Moles/volume] in Ser um or PlasmaOrdered By: Obaydah Daromar on 02-07-2023 Sodium [Moles/Vol] 138 mmol/L 136-145 [facility] Urea nitrogen [Mass/volume] in Serum or PlasmaOrdered By: Obaydah Daromar on 02-07-2023 Urea nitrogen [Mass/Vol] 14 mg/dL 10-06 [facility] WBC Auto (Bld) [#/Vol]Ordere d By: Objacquidah Daromar on 02-07-2023 WBC (Bld) [#/Vol] 11.7 10*3/uL 4.1-10.5 [facility] ECG 12 lead ECGon 02-06-2023 ECG 12 lead ECG [facility] [place] [address] Electrocardiograph Report Signed Patient: Tadeo Thomas MR#: [id number] 0 : 1945 Acct:[id number] Age/Sex: 78 / M ADM Date: 02/03/23 Loc: Room: [address] [place] [address] Type: ADM IN Attending Dr: Miguel Hinson MD Ordering Provider: Samra Garza MD Date of Service: 02/06/23 ECG/ECG 12 lead ECG: QTC monitor Copies to: Test Reason : Blood Pressure : / mmHG Vent. Rate : 079 BPM Atrial Rate : 079 BPM P-R Int : 314 ms QRS Dur : 144 ms QT Int : 430 ms P-R-T Axes : 040 066 -26 degrees QTc Int : 493 ms Sinus rhythm with 1st degree AV block with premature atrial complexes Right bundle branch block T wave abnormality, consider inferolateral ischemia Abnormal ECG When compared with ECG of 05-FEB-2023 07:33, No significant change was found Confirmed by ARACELIS PERKINS DO ([id number]) on 02/06/2023 7:53:33 PM Referred By: Electronically Signed By:ARACELIS PERKINS DO Transcribed By: MUS Signed By Aracelis Perkins DO 02/06 [facility] ECG 12 lead ECGon 02-05-2023 ECG 12 lead ECG [facility] [place] [address] Electrocardiograph Report Signed Patient: Tadeo Thomas MR#: [id number] 0 : 1945 Acct:[id number] Age/Sex: 78 / M ADM Date: 02/03/23 Loc: Room: [address] [place] [address] Type: ADM IN Attending Dr: Jennifer Cruz MD Ordering Provider: Samra Garza MD Date of Service: 02/05/23 ECG/ECG 12 lead ECG: QTC monitor Copies to: Test Reason : Blood Pressure : / mmHG Vent. Rate : 077 BPM Atrial Rate : 077 BPM P-R Int : 298 ms QRS Dur : 148 ms QT Int : 434 ms P-R-T Axes : 050 069 -18 degrees QTc Int : 491 ms Sinus rhythm with 1st degree AV block with premature atrial complexes Right bundle branch block Abnormal ECG When compared with ECG of 04-FEB-2023 07:16, Previous ECG has undetermined rhythm, needs review Confirmed by ARACELIS PERKINS DO ([id number]) on 02/05/2023 6:15:44 PM Referred By: Electronically Signed By:ARACELIS PERKINS DO Transcribed By: MUS Signed By Aracelis Perkins DO 02/05 [facility] ECG 12 lead ECGon 02-04-2023 ECG 12 lead ECG [facility] Main [place] [address] [place] [address] Electrocardiograph Report Signed Patient: Tadeo Thomas MR#: [id number] 0 : 1945 Acct:[id number] Age/Sex: 78 / M ADM Date: 02/03/23 Loc: Room: [address] [place] [address] Type: ADM IN Attending Dr: Jennifer Cruz MD Ordering Provider: Samra Garza MD Date of Service: 02/04/23 ECG/ECG 12 lead ECG: QTC monitor Copies to: Test Reason : Blood Pressure : / mmHG Vent. Rate : 076 BPM Atrial Rate : 068 BPM P-R Int : 298 ms QRS Dur : 150 ms QT Int : 418 ms P-R-T Axes : 035 054 011 degrees QTc Int : 470 ms intermittent atrial paced beats in setting of sinus rhythm with first degree AV block Right bundle branch block Abnormal ECG When compared with ECG of 02-FEB-2023 12:37, No significant change was found Confirmed by ARACELIS PERKINS DO ([id number]) on 02/04/2023 10:44:36 PM Referred By: Electronically Signed By:ARACELIS PERKINS DO Transcribed By: MUS Signed By Aracelis Perkins DO 02/04 2244 [facility] Basic Metabolic Panelon 11- Anion gap [Moles/Vol] 11.0 mmol/L Normal 6.0-15.0 [facility] Comment on above: Performed By: #### B MP ####[place] [address] [place] [id number] [facility] Calcium [Mass/Vol] 8.3 mg/dL Low 8.6-10.3 [facility] Comment on above: Performed By: #### B MP ####[place] [address] [place] [id number] [facility] Chloride [Moles/Vol] 104 mmol/L Normal 98-[address] [facility] Comment on above: Performed By: #### B MP ####[place] [address] CO2 [Moles/Vol] 30.7 mmol/L Normal 21.0-31.0 [facility] Comment on above: Performed By: #### B MP ####[facility] [place] [id number] [facility] Creatinine [Mass/Vol] 0.81 mg/dL Normal 0.70-1.30 [facility] Comment on above: Performed By: #### B MP ####[place] [address] [place] [id number] [facility] Creatinine Clr Calc Pharmacy 76.15 Normal [facility] Comment on above: Result Comment: PERF ORMED BY: [facility] [address] [place] [id number] PATHOLOGIST AUDIOLOGY ASSISTANT KASSANDRA STACK M.D. Performed By: #### B MP ####[place] [address] GFR/1.73 sq M.predicted MDRD (S/P/Bld) [Vol rate/Area] mL/min/{1.73_m2} Normal [facility] Comment on above: Performed By: #### B MP ####[place] [id number] [facility] Glucose [Mass/Vol] 92 mg/dL Significant change down 70-100 [facility] Comment on above: Result Comment: [facility] Glucose Reference Range is dependent on time and content of last meal. Glucose of more than 200 mg/dL in a nonstressed, ambulatory subject supports the diagnosis of Diabetes Mellitus. ADA recommended reference range Performed By: #### B MP ####[place] [address] [place] [id number] [facility] Potassium [Moles/Vol] 3.7 mmol/L Normal 3.5-5.1 [facility] Comment on above: Performed By: #### B MP ####[place] [id number] [facility] Sodium [Moles/Vol] 142 mmol/L Significant change down 136-145 [facility] Comment on above: Performed By: #### B MP ####[facility] [place] [address] [facility] Urea nitrogen [Mass/Vol] 17 mg/dL Normal 7-25 [facility] Comment on above: Performed By: #### B MP ####[facility] [place] [id number] [facility] Alanine aminotransferase [En zymatic activity/volume] in Serum or PlasmaOrdered By: Nicolas Zavala on 02-02-2023 ALT [Catalytic activity/Vol] 18 U/L 7-52 [facility] Albumin [Mass/volume] in Ser um or Plasma by Bromocresol green (BCG) dye binding methoOrdered By: Nicolas Zavala on 02-02-2023 Albumin BCG dye [Mass/Vol] 3.7 g/dL 3.5-5.7 [facility] Alkaline phosphatase [Enzyma tic activity/volume] in Serum or PlasmaOrdered By: Nicolas Zavala on 02-02-2023 ALP [Catalytic activity/Vol] 74 U/L 34-104 [facility] Aspartate aminotransferase [ Enzymatic activity/volume] in Serum or PlasmaOrdered By: Nicolas Zavala on 02-02-2023 AST [Catalytic activity/Vol] 17 U/L 13-39 [facility] B-Type Natriuretic Peptideon 02-02-2023 Natriuretic peptide B (Bld) [Mass/Vol] 427.0 pg/mL High 5-100 [facility] Comment on above: Result Comment: PERF ORMED BY: [facility] [address] [place] [id number] PATHOLOGIST AUDIOLOGY ASSISTANT KASSANDRA STACK M.D. Performed By: #### H S TROP, BNP, CMP, CBC ####[place] [address] [place] [address] [facility] Basophils Auto (Bld) [#/Vol] Ordered By: Nicolas Zavala on 02-02-2023 Basophils (Bld) [#/Vol] 0.0 10*3/uL 0.0-0.2 [facility] Basophils/100 WBC Auto (Bld) Ordered By: Nicolas Zavala on 02-02-2023 Basophils/100 WBC (Bld) 0.3 % . [facility] Bilirubin.total [Mass/volume ] in Serum or PlasmaOrdered By: Nicolas Zavala on 02-02-2023 Bilirubin [Mass/Vol] 0.5 mg/dL 0.3-1.[address] [facility] Calcium [Mass/volume] in Ser um or PlasmaOrdered By: Nicolas Zavala on 02-02-2023 Calcium [Mass/Vol] 9.0 mg/dL 8.6-10.3 [facility] Carbon dioxide, total [Moles /volume] in Serum or PlasmaOrdered By: Nicolas Zavala on 02-02-2023 CO2 [Moles/Vol] 26.5 mmol/L 21.0-31.0 [facility] Chloride [Moles/volume] in S estela or PlasmaOrdered By: Nicolas Zavala on 02-02-2023 Chloride [Moles/Vol] 105 mmol/L 98-[address] [facility] Complete Blood Count Auto Di ffon 02-02-2023 Basophils (Bld) [#/Vol] 0.0 10*3/uL Normal 0.0-0.2 [facility] Comment on above: Result Comment: PERF ORMED BY: [facility] [address] [facility] [place] [address] PATHOLOGIST AUDIOLOGY ASSISTANT KASSANDRA STACK M.D. Performed By: #### H S TROP, BNP, CMP, CBC ####[place] [address] [place] [address] [place] Basophils/100 WBC (Bld) 0.3 % Normal . [facility] Comment on above: Performed By: #### H S TROP, BNP, CMP, CBC ####[facility] [address] [place] [address] [place] Eosinophils (Bld) [#/Vol] 0.0 10*3/uL Normal 0.0-0.45 [facility] Comment on above: Performed By: #### H S TROP, BNP, CMP, CBC ####[facility] [place] [id number] [place] Eosinophils/100 WBC (Bld) 0.2 % Normal . [facility] Comment on above: Performed By: #### H S TROP, BNP, CMP, CBC ####[address] Erythrocyte distribution width (RBC) [Ratio] 14.8 % Normal 12.0-14.8 [facility] Comment on above: Performed By: #### H S TROP, BNP, CMP, CBC ####[address] Hematocrit (Bld) [Volume fraction] 32.4 % Low 38.8-50.0 [facility] Comment on above: Performed By: #### H S TROP, BNP, CMP, CBC ####[address] Hemoglobin (Bld) [Mass/Vol] 11.0 g/dL Low 13.0-17.0 [facility] Comment on above: Performed By: #### H S TROP, BNP, CMP, CBC ####[address] Lymphocytes (Bld) [#/Vol] 3.3 10*3/uL Normal 1.00-4.8 [facility] Comment on above: Performed By: #### H S TROP, BNP, CMP, CBC ####[address] Lymphocytes/100 WBC (Bld) 35.5 % Normal . [facility] Comment on above: Performed By: #### H S TROP, BNP, CMP, CBC ####[address] MCH (RBC) [Entitic mass] 33.5 pg Normal 27.5-35.2 [facility] Comment on above: Performed By: #### H S TROP, BNP, CMP, CBC ####[address] MCV (RBC) [Entitic vol] 99.1 fL Normal 83.5-101 [facility] Comment on above: Performed By: #### H S TROP, BNP, CMP, CBC ####[address] Mean Corpuscular HGB Conc 33.8 g/dL Normal 32.5-35.6 [facility] Comment on above: Performed By: #### H S TROP, BNP, CMP, CBC ####[address] Monocytes (Bld) [#/Vol] 0.4 10*3/uL Normal 0.0-0.8 [facility] Comment on above: Performed By: #### H S TROP, BNP, CMP, CBC ####[address] Monocytes/100 WBC (Bld) 18.83 % Normal 0.00-20.00 [facility] Comment on above: Performed By: #### H S TROP, BNP, CMP, CBC ####[address] Monocytes/100 WBC (Bld) 4.8 % Normal . [facility] Comment on above: Performed By: #### H S TROP, BNP, CMP, CBC ####[address] Neutrophils (Bld) [#/Vol] 5.4 10*3/uL Normal 1.8-7.7 [facility] Comment on above: Performed By: #### H S TROP, BNP, CMP, CBC ####[address] Neutrophils/100 WBC (Bld) 59.2 % Normal . [facility] Comment on above: Performed By: #### H S TROP, BNP, CMP, CBC ####[address] NRBC% 0.6 /100{WBC} High 0-0.5 [facility] Comment on above: Performed By: #### H S TROP, BNP, CMP, CBC ####[address] Platelet mean volume (Bld) [Entitic vol] 8.2 fL Normal 6.6-10.1 [facility] Comment on above: Performed By: #### H S TROP, BNP, CMP, CBC ####[address] Platelets (Bld) [#/Vol] 227 10*3/uL Normal 150-450 [facility] Comment on above: Performed By: #### H S TROP, BNP, CMP, CBC ####[address] RBC (Bld) [#/Vol] 3.26 10*6/uL Low 3.90-5.60 [facility] Comment on above: Performed By: #### H S TROP, BNP, CMP, CBC ####[address] WBC (Bld) [#/Vol] 9.2 10*3/uL Normal 4.1-10.5 [facility] Comment on above: Performed By: #### H S TROP, BNP, CMP, CBC ####[address] Comprehensive Metabolic Pane christian 02-02-2023 Albumin [Mass/Vol] 3.7 g/dL Normal 3.5-5.7 [facility] Comment on above: Performed By: #### H S TROP, BNP, CMP, CBC ####[address] Albumin/Globulin [Mass ratio] 1.3 {ratio} Normal [facility] Comment on above: Performed By: #### H S TROP, BNP, CMP, CBC ####[place] [id number] [facility] ALP [Catalytic activity/Vol] 74 U/L Normal 34-104 [facility] Comment on above: Performed By: #### H S TROP, BNP, CMP, CBC ####[place] [id number] [facility] ALT [Catalytic activity/Vol] 18 U/L Normal 7-52 [facility] Comment on above: Performed By: #### H S TROP, BNP, CMP, CBC ####[place] [id number] [facility] Anion gap [Moles/Vol] 6.7 mmol/L Normal 6.0-15.0 [facility] Comment on above: Performed By: #### H S TROP, BNP, CMP, CBC ####[address] AST [Catalytic activity/Vol] 17 U/L Normal 13-39 [facility] Comment on above: Performed By: #### H S TROP, BNP, CMP, CBC ####[address] Bilirubin [Mass/Vol] 0.5 mg/dL Normal 0.3-1.[address] [facility] Comment on above: Performed By: #### H S TROP, BNP, CMP, CBC ####[address] Calcium [Mass/Vol] 9.0 mg/dL Normal 8.6-10.3 [facility] Comment on above: Performed By: #### H S TROP, BNP, CMP, CBC ####[address] Chloride [Moles/Vol] 105 mmol/L Normal 98-[address] [facility] Comment on above: Performed By: #### H S TROP, BNP, CMP, CBC ####[place] [id number] [facility] CO2 [Moles/Vol] 26.5 mmol/L Normal 21.0-31.0 [facility] Comment on above: Performed By: #### H S TROP, BNP, CMP, CBC ####[place] [id number] [facility] Creatinine [Mass/Vol] 0.99 mg/dL Normal 0.70-1.30 [facility] Comment on above: Performed By: #### H S TROP, BNP, CMP, CBC ####[place] [id number] [facility] Creatinine Clr Calc Pharmacy 63.41 [facility] Comment on above: Result Comment: PERF ORMED BY: [facility] [address] [place] [address] PATHOLOGIST AUDIOLOGY ASSISTANT KASSANDRA STACK M.D. Performed By: #### H S TROP, BNP, CMP, CBC ####[place] [address] GFR/1.73 sq M.predicted MDRD (S/P/Bld) [Vol rate/Area] mL/min/{1.73_m2} [facility] Comment on above: Performed By: #### H S TROP, BNP, CMP, CBC ####[address] Globulin (S) [Mass/Vol] 2.9 g/dL [facility] Comment on above: Performed By: #### H S TROP, BNP, CMP, CBC ####[address] Glucose [Mass/Vol] 227 mg/dL High 70-100 [facility] Comment on above: Result Comment: [facility] Glucose Reference Range is dependent on time and content of last meal. Glucose of more than 200 mg/dL in a nonstressed, ambulatory subject supports the diagnosis of Diabetes Mellitus. ADA recommended reference range Performed By: #### H S TROP, BNP, CMP, CBC ####[address] Potassium [Moles/Vol] 4.2 mmol/L Normal 3.5-5.1 [facility] Comment on above: Performed By: #### H S TROP, BNP, CMP, CBC ####[address] Protein [Mass/Vol] 6.6 g/dL Normal 6.4-8.9 [facility] Comment on above: Performed By: #### H S TROP, BNP, CMP, CBC ####[address] Sodium [Moles/Vol] 134 mmol/L Low 136-145 [facility] Comment on above: Performed By: #### H S TROP, BNP, CMP, CBC ####[place] [address] [place] [id number] [facility] Urea nitrogen [Mass/Vol] 24 mg/dL Normal 7-25 [facility] Comment on above: Performed By: #### H S TROP, BNP, CMP, CBC ####[place] [address] [place] [id number] [facility] Creatinine [Mass/volume] in Serum or PlasmaOrdered By: Nicolas Zavala on 02-02-2023 Creatinine [Mass/Vol] 0.99 mg/dL 0.70-1.30 [facility] Digoxinon 02-02-2023 Digoxin [Mass/Vol] ng/mL Low 0.9-2.0 [facility] Comment on above: Result Comment: Last dose: - PERFORMED BY: [place] [address] PATHOLOGIST AUDIOLOGY ASSISTANT KASSANDRA STACK M.D. Performed By: #### D IG ####[place] [id number] [facility] Digoxin [Mass/volume] in Ser um or PlasmaOrdered By: Nicolas Zavala on 02-02-2023 Digoxin [Mass/Vol] ng/mL 0.9-2.0 [facility] Comment on above: Last dose: - ECG 12 lead ECGon 02-02-2023 ECG 12 lead ECG [facility] [place] [address] Electrocardiograph Report Signed Patient: Tadeo Thomas MR#: [id number] 0 : 1945 Acct:[id number] Age/Sex: 78 / M ADM Date: 02/02/23 Loc: Room: [address] [place] [address] Type: ADM INOo Attending Dr: Jennifer Cruz MD Ordering Provider: Nicolas Zavala DO Date of Service: 02/02/23 ECG/ECG 12 lead ECG: Shortness of Breath/Dyspnea Copies to: Test Reason : Blood Pressure : 084/056 mmHG Vent. Rate : 080 BPM Atrial Rate : 080 BPM P-R Int : 308 ms QRS Dur : 138 ms QT Int : 366 ms P-R-T Axes : 057 068 017 degrees QTc Int : 422 ms paced rhythm Confirmed by Nicolas Zavala DO ([id number]) on 02/02/2023 8:03:51 PM Referred By: Electronically Signed By:Nicolas Zavala DO Transcribed By: MUS Signed By Nicolas Zavala DO 2002 [facility] ECG 12 lead ECG [facility] [place] [address] Electrocardiograph Report Signed Patient: Tadeo Thomas MR#: [id number] 0 : 1945 Acct:[id number] Age/Sex: 78 / M ADM Date: 02/02/23 Loc: Room: [address] [place] [address] Type: ADM INOo Attending Dr: Jennifer Cruz MD Ordering Provider: Nicolas Zavala DO Date of Service: 02/02/23 ECG/ECG 12 lead ECG: Shortness of Breath/Dyspnea Copies to: Test Reason : Blood Pressure : 084/056 mmHG Vent. Rate : 130 BPM Atrial Rate : 115 BPM P-R Int : 000 ms QRS Dur : 142 ms QT Int : 362 ms P-R-T Axes : 000 068 -08 degrees QTc Int : 532 ms SVT with abberancy Right bundle branch block Confirmed by Nicolas Zavala DO ([id number]) on 02/02/2023 8:04:29 PM Referred By: Electronically Signed By:Nicolas Zavala DO Transcribed By: MUS Signed By Nicolas Zavala DO 2003 [facility] ECG 12 lead ECG [facility] Main [place] [id number] Electrocardiograph Report Signed Patient: Tadeo Thomas MR#: [id number] 0 : 1945 Acct:[id number] Age/Sex: 78 / M ADM Date: 02/02/23 Loc: Room: [address] [place] [address] Type: ADM INOo Attending Dr: Jennifer Cruz MD Ordering Provider: Nicolas Zavala DO Date of Service: 02/02/23 ECG/ECG 12 lead ECG: Shortness of Breath/Dyspnea Copies to: Test Reason : Blood Pressure : 095/065 mmHG Vent. Rate : 145 BPM Atrial Rate : 032 BPM P-R Int : 000 ms QRS Dur : 138 ms QT Int : 344 ms P-R-T Axes : 000 064 002 degrees QTc Int : 534 ms SVT with RBBB Confirmed by Nicolas Zavala DO ([id number]) on 02/02/2023 8:04:59 PM Referred By: Electronically Signed By:Nicolas Zavala DO Transcribed By: MUS Signed By Nicolas Zavala DO 2004 [facility] ECG 12 lead ECG [facility] [place] [address] Electrocardiograph Report Signed Patient: Tadeo Thomas MR#: [id number] 0 : 1945 Acct:[id number] Age/Sex: 78 / M ADM Date: 02/02/23 Loc: Room: [address] [place] [address] Type: ADM INOo Attending Dr: Jennifer Cruz MD Ordering Provider: Nicolas Zavala DO Date of Service: 02/02/23 ECG/ECG 12 lead ECG: Shortness of Breath/Dyspnea Copies to: Test Reason : Blood Pressure : 095/065 mmHG Vent. Rate : 148 BPM Atrial Rate : 144 BPM P-R Int : 000 ms QRS Dur : 134 ms QT Int : 336 ms P-R-T Axes : 000 074 029 degrees QTc Int : 527 ms SVT with RBBB Confirmed by Nicolas Zavala DO ([id number]) on 02/02/2023 8:05:19 PM Referred By: Electronically Signed By:Nicolas Zavala DO Transcribed By: MUS Signed By Nicolas Zavala DO 2004 [facility] Eosinophils Auto (Bld) [#/Vo l]Ordered By: Nicolas Zavala on 02-02-2023 Eosinophils (Bld) [#/Vol] 0.0 10*3/uL 0.0-0.45 [facility] Eosinophils/100 WBC Auto (Bl d)Ordered By: Nicolas Zavala on 02-02-2023 Eosinophils/100 WBC (Bld) 0.2 % . [facility] Erythrocyte distribution wid th Auto (RBC) [Ratio]Ordered By: Nicolas Zavala on 02-02-2023 Erythrocyte distribution width (RBC) [Ratio] 14.8 % 12.0-14.8 [facility] Globulin Calc (S) [Mass/Vol] Ordered By: Nicolas Zavala on 02-02-2023 Globulin (S) [Mass/Vol] 2.9 g/dL [facility] Glucose [Mass/volume] in Ser um or PlasmaOrdered By: Nicolas Zavala on 02-02-2023 Glucose [Mass/Vol] 227 mg/dL 70-100 [facility] Comment on above: ADA recommended refe rence rangeRandom Glucose Reference Range is dependent on time and content of last meal. Glucose of more than 200 mg/dL in a nonstressed, ambulatory subject supports the diagnosis of Diabetes Mellitus. Hematocrit Auto (Bld) [Volum e fraction]Ordered By: Nicolas Zavala on 02-02-2023 Hematocrit (Bld) [Volume fraction] 32.4 % 38.8-50.0 [facility] Hemoglobin [Mass/volume] in BloodOrdered By: Nicolas Zavala on 02-02-2023 Hemoglobin (Bld) [Mass/Vol] 11.0 g/dL 13.0-17.0 [facility] Leukocytes [#/volume] correc ale for nucleated erythrocytes in Blood by Automated counOrdered By: Nicolas Zavala on 02-02-2023 WBC corrected for nucl RBC Auto (Bld) [#/Vol] 9.2 10*3/uL 4.1-10.5 [facility] Lymphocytes Auto (Bld) [#/Vo l]Ordered By: Nicolas Zavala on 02-02-2023 Lymphocytes (Bld) [#/Vol] 3.3 10*3/uL 1.00-4.8 [facility] Lymphocytes/100 WBC Auto (Bl d)Ordered By: Nicolas Zavala on 02-02-2023 Lymphocytes/100 WBC (Bld) 35.5 % . [facility] MCH Auto (RBC) [Entitic mass ]Ordered By: Nicolas Zavala on 02-02-2023 MCH (RBC) [Entitic mass] 33.5 pg 27.5-35.2 [facility] MCHC Auto (RBC) [Mass/Vol]Or dered By: Nicolas Zavala on 02-02-2023 MCHC (RBC) [Mass/Vol] 33.8 g/dL 32.5-35.6 [facility] MCV Auto (RBC) [Entitic vol] Ordered By: Nicolas Zavala on 02-02-2023 MCV (RBC) [Entitic vol] 99.1 fL 83.5-101 [facility] Monocyte distribution width [Entitic volume] in Blood by AutomatedOrdered By: Nicolas Zavala on 02-02-2023 Monocyte distribution width Auto (Bld) [Entitic vol] 18.83 % 0.00-20.00 [facility] Monocytes Auto (Bld) [#/Vol] Ordered By: Nicolas Zavala on 02-02-2023 Monocytes (Bld) [#/Vol] 0.4 10*3/uL 0.0-0.8 [facility] Monocytes/100 WBC Auto (Bld) Ordered By: Nicolas Zavala on 02-02-2023 Monocytes/100 WBC (Bld) 4.8 % . [facility] Natriuretic peptide B [Mass/ Vol]Ordered By: Nicolas Zavala on 02-02-2023 Natriuretic peptide B (Bld) [Mass/Vol] 427.0 pg/mL 5-100 [facility] Neutrophils Auto (Bld) [#/Vo l]Ordered By: Nicolas Zavala on 02-02-2023 Neutrophils (Bld) [#/Vol] 5.4 10*3/uL 1.8-7.7 [facility] Neutrophils/100 WBC Auto (Bl d)Ordered By: Nicolas Zavala on 02-02-2023 Neutrophils/100 WBC (Bld) 59.2 % . [facility] No Panel InformationOrdered By: Nicolas Zavala on 02-02-2023 Estimated GFR (CKD-EPI) > 60.0 mL/Min [facility] Creatinine Clearance (Chem 63.41 [facility] Nucleated erythrocytes [Pres ence] in Blood by Automated countOrdered By: Nicolas Zavala on 02-02-2023 Nucleated RBC Auto Ql (Bld) 0.6 /100{WBC} 0-0.5 [facility] Platelet mean volume Auto (B ld) [Entitic vol]Ordered By: Nicolas Zavala on 02-02-2023 Platelet mean volume (Bld) [Entitic vol] 8.2 fL 6.6-10.1 [facility] Platelets Auto (Bld) [#/Vol] Ordered By: Nicolas Zavala on 02-02-2023 Platelets (Bld) [#/Vol] 227 10*3/uL 150-450 [facility] Potassium [Moles/volume] in Serum or PlasmaOrdered By: Nicolas Zavala on 02-02-2023 Potassium [Moles/Vol] 4.2 mmol/L 3.5-5.1 [facility] Protein [Mass/volume] in Ser um or PlasmaOrdered By: Nicolas Zavala on 02-02-2023 Protein [Mass/Vol] 6.6 g/dL 6.4-8.9 [facility] RBC Auto (Bld) [#/Vol]Ordere d By: Nicolas Zavala on 02-02-2023 RBC (Bld) [#/Vol] 3.26 10*6/uL 3.90-5.60 [facility] Serum or plasma albumin/glob ulin mass ratioOrdered By: Nicolas Zavala on 02-02-2023 Albumin/Globulin [Mass ratio] 1.3 {ratio} [facility] Serum or plasma anion gap de terminationOrdered By: Nicolas Zavala on 02-02-2023 Anion gap [Moles/Vol] 6.7 mmol/L 6.0-15.0 [facility] Sodium [Moles/volume] in Ser um or PlasmaOrdered By: Nicolas Zavala on 02-02-2023 Sodium [Moles/Vol] 134 mmol/L 136-145 [facility] Troponin I High Sensitivityo n 02-02-2023 Troponin I High Sensitivity 15.0 pg/mL Normal 0.0-20.0 [facility] Comment on above: Result Comment: PERF ORMED BY: [place] [address] PATHOLOGIST AUDIOLOGY ASSISTANT KASSANDRA STACK M.D. Performed By: #### H S TROP, BNP, CMP, CBC ####[facility] [place] [id number] [facility] Troponin I.cardiac [Mass/vol ume] in Serum or Plasma by Detection limit <= 0.01 ng/Ordered By: Nicolas Zavala on 02-02-2023 Troponin I.cardiac DL <= 0.01 ng/mL [Mass/Vol] 15.0 pg/mL 0.0-20.0 [facility] Urea nitrogen [Mass/volume] in Serum or PlasmaOrdered By: Nicolas Zavala on 02-02-2023 Urea nitrogen [Mass/Vol] 24 mg/dL 7-25 [facility] WBC Auto (Bld) [#/Vol]Ordere d By: Nicolas Zavala on 02-02-2023 WBC (Bld) [#/Vol] 9.2 10*3/uL 4.1-10.5 [facility] XR chest 1V portableon 02-02 XR chest 1V portable [facility] Main [place] [address] [place] [address] XRay Report Signed Patient: Tadeo Thomas MR#: [id number] 0 : 1945 Acct:[id number] Age/Sex: 78 / M ADM Date: 02/02/23 Loc: ER Room: Type: PRE ER Attending Dr: Copies to: Nicolas Zavala DO Ordering Provider: Nicolas Zavala DO Date of Service: 02/02/23 XR/XR chest 1V portable: Shortness of Breath/Dyspnea SINGLE VIEW CHEST CLINICAL HISTORY: Shortness of breath for 4 days with fatigue. COMPARISON: Chest 11/17/2022 FINDINGS: Pacemaker device in place. Heart normal in size. Lungs are clear. No free air. XR/XR chest 1V portable IMPRESSION: NO ACUTE FINDINGS Impression dictated by: Jamaal Lacey Jr., D.OGerardo02/02/2023 12:16 PM Dictation Location: [place] [address] Transcribed By: [facility] 02/02/23 121 Dictated By: Jamaal Lacey Jr, DO 02/02/23 1210 Signed By: 02/02/23 1216 Normal [facility] ALBUMIN, RANDOM URINE W/CREA TININEon 12-17-2022 ALBUMIN, URINE 8.9 mg/dL Normal See Note: [facility] Comment on above: Result Comment: Refe rence Range: Reference Range Not established Performed By: #### 6 517, 27350, 5463 #### [facility] [address], [address] [place] [address] [employer] Instructor: Sunday Chu MD ALBUMIN/CREATININE RATIO, RANDOM URINE 25 mcg/mg creat Normal <30 [facility] Comment on above: Result Comment: The ADA defines abnormalities in albumin excretion as follows: Albuminuria Category Result (mcg/mg creatinine) Normal to Mildly increased <30 Moderately increased 30-299 Severely increased > OR = 300 The ADA recommends that at least two of three specimens collected within a 3-6 month period be abnormal before considering a patient to be within a diagnostic category. Performed By: #### 6 517, 87874, 5463 #### [facility] [address], [address] [place] [address] [employer] Instructor: Sunday Chu MD Creatinine (U) [Mass/Vol] 362 mg/dL High 20-320 [facility] Comment on above: Result Comment: Results verified by repeat analysis on dilution. Performed By: #### 6 517, 79095, 5463 #### [facility] [address], [address] [place] [address] [employer] Instructor: Sunday Chu MD CBC (INCLUDES DIFF/PLT)on Basophils (Bld) [#/Vol] 0.023 10*3/uL Normal 0-200 [facility] Comment on above: Performed By: #### 6 517, 06485, 5463 #### [facility] of [address], [address] [place] [address] [employer] Instructor: Sunday Chu MD Basophils/100 WBC (Bld) 0.3 % Normal [facility] Comment on above: Performed By: #### 6 517, 50358, 5463 #### [facility] of [address], [address] [place] [address] [employer] Instructor: Sunday Chu MD Eosinophils (Bld) [#/Vol] 0.031 10*3/uL Normal 15-500 [facility] Comment on above: Performed By: #### 6 517, 08223, 5463 #### [facility] of [place] [address] [employer] Instructor: Sunday Chu MD Eosinophils/100 WBC (Bld) 0.4 % Normal [facility] Comment on above: Performed By: #### 6 517, 96835, 5463 #### [facility] of [place] [address] [employer] Instructor: Sunday Chu MD Erythrocyte distribution width (RBC) [Ratio] 13.4 % Normal 11.0-15.0 [facility] Comment on above: Performed By: #### 6 517, 22897, 5463 #### [facility] of [place] [address] [employer] Instructor: Sunday Chu MD Hematocrit (Bld) [Volume fraction] 35.3 % Low 38.5-50.0 [facility] Comment on above: Performed By: #### 6 517, 05732, 5463 #### [facility] of [place] [address] [employer] Instructor: Sunday Chu MD Hemoglobin (Bld) [Mass/Vol] 11.7 g/dL Low 13.2-17.1 [facility] Comment on above: Performed By: #### 6 517, 46385, 5463 #### [facility] of [address], [address] [place] [address] [employer] Instructor: Sunday Chu MD Lymphocytes (Bld) [#/Vol] 3.773 10*3/uL Normal 850-3900 [facility] Comment on above: Performed By: #### 6 517, 24721, 5463 #### [facility] of [place] [address] [employer] Instructor: Sunday Chu MD Lymphocytes/100 WBC (Bld) 49.0 % Normal [facility] Comment on above: Performed By: #### 6 517, 54528, 5463 #### [facility] of [place] [address] [employer] Instructor: Sunday Chu MD MCH (RBC) [Entitic mass] 33.6 pg High 27.0-33.0 [facility] Comment on above: Performed By: #### 6 517, 52245, 5463 #### [facility] of [place] [address] [employer] Instructor: Sunday Chu MD MCHC (RBC) [Mass/Vol] 33.1 g/dL Normal 32.0-36.[address] [facility] Comment on above: Performed By: #### 6 517, 24488, 5463 #### [facility] of [place] [address] [employer] Instructor: Sunday Chu MD MCV (RBC) [Entitic vol] 101.4 fL High 80.0-100.0 [facility] Comment on above: Performed By: #### 6 517, 07079, 5463 #### [facility] of [place] [address] [employer] Instructor: Sunday Chu MD Monocytes (Bld) [#/Vol] 0.362 10*3/uL Normal 200-950 [facility] Comment on above: Performed By: #### 6 517, 19240, 5463 #### [facility] of [place] [address] [employer] Instructor: Sunday Chu MD Monocytes/100 WBC (Bld) 4.7 % Normal [facility] Comment on above: Performed By: #### 6 517, 80815, 5463 #### [facility] of [place] [address] [employer] Instructor: Sunday Chu MD Neutrophils (Bld) [#/Vol] 3.511 10*3/uL Normal 9866-2403 [facility] Comment on above: Performed By: #### 6 517, 31320, 5463 #### [facility] of [place] [address] [employer] Instructor: Sunday Chu MD Neutrophils/100 WBC (Bld) 45.6 % Normal [facility] Comment on above: Performed By: #### 6 517, 16550, 5463 #### [facility] [place] [address] [employer] Instructor: Sunday Chu MD Platelet mean volume (Bld) [Entitic vol] 10.2 fL Normal 7.5-12.5 [facility] Comment on above: Performed By: #### 6 517, 23705, 5463 #### [facility] [place] [address] [employer] Instructor: Sunday Chu MD Platelets (Bld) [#/Vol] 212 10*3/uL Normal 140-400 [facility] Comment on above: Performed By: #### 6 517, 34710, 5463 #### [facility] of [place] [address] [employer] Instructor: Sunday Chu MD RBC (Bld) [#/Vol] 3.48 10*6/uL Low 4.20-5.80 [facility] Comment on above: Performed By: #### 6 517, 81669, 5463 #### [facility] of [place] [address] [employer] Instructor: Sunday Chu MD WBC (Bld) [#/Vol] 7.7 10*3/uL Normal 3.8-10.8 [facility] Comment on above: Performed By: #### 6 517, 52552, 5463 #### [facility] of [place] [address] [employer] Instructor: Sunday Chu MD [facility] 12-17-2022 Albumin [Mass/Vol] 3.9 g/dL Normal 3.6-5.1 [facility] Comment on above: Performed By: #### 6 517, 26888, 5463 #### [facility] of [address], [address] [place] [address] [employer] Instructor: Sunday Chu MD Albumin/Globulin [Mass ratio] 1.7 {ratio} Normal 1.0-2.5 [facility] Comment on above: Performed By: #### 6 517, 22735, 5463 #### [facility] of [place] [address] [employer] Instructor: Sunday Chu MD ALP [Catalytic activity/Vol] 58 U/L Normal 35-144 [facility] Comment on above: Performed By: #### 6 517, 40241, 5463 #### [facility] of [place] [address] [employer] Instructor: Sunday Chu MD ALT [Catalytic activity/Vol] 8 U/L Low 9-46 [facility] Comment on above: Performed By: #### 6 517, 33495, 5463 #### [facility] of [place] [address] [employer] Instructor: Sunday Chu MD AST [Catalytic activity/Vol] 12 U/L Normal 10-35 [facility] Comment on above: Performed By: #### 6 517, 97272, 5463 #### [facility] of [place] [address] [employer] Instructor: Sunday Chu MD Bilirubin [Mass/Vol] 0.4 mg/dL Normal 0.2-1.2 [facility] Comment on above: Performed By: #### 6 517, 74530, 5463 #### [facility] of [address] [place] [address] [employer] Instructor: Sunday Chu MD BUN/CREATININE RATIO SEE NOTE: Normal 6-22 [facility] Comment on above: Result Comment: Not Reported: BUN and Creatinine are within reference range. Performed By: #### 6 517, 93323, 5463 #### [facility] of [address], [address] [place] [address] [employer] Instructor: Sunday Chu MD Calcium [Mass/Vol] 8.7 mg/dL Normal 8.6-10.3 [facility] Comment on above: Performed By: #### 6 517, 14122, 5463 #### [facility] of [address], [address] [place] [address] [employer] Instructor: Sunday Chu MD Chloride [Moles/Vol] 102 mmol/L Normal 98-110 [facility] Comment on above: Performed By: #### 6 517, 11399, 5463 #### [facility] of [address], [address] [place] [address] [employer] Instructor: Sunday Chu MD CO2 [Moles/Vol] 28 mmol/L Normal 20-32 [facility] Comment on above: Performed By: #### 6 517, 27512, 5463 #### [facility] of [address], [address] [place] [address] [employer] Instructor: Sunday Chu MD Creatinine [Mass/Vol] 0.83 mg/dL Normal 0.70-1.[address] [facility] [address] [facility] Comment on above: Performed By: #### 6 517, 39045, 5463 #### [facility] of [address], [address] [place] [address] [employer] Instructor: Sunday Chu MD GFR/1.73 sq M.predicted among non-blacks MDRD (S/P/Bld) [Vol rate/Area] 90 mL/min/{1.73_m2} Normal > OR = 60 [facility] Comment on above: Performed By: #### 6 517, 22426, 5463 #### [facility] of [place] [address] [employer] Instructor: Sunday Chu MD Globulin (S) [Mass/Vol] 2.3 g/dL Normal 1.9-3.7 [facility] Comment on above: Performed By: #### 6 517, 51204, 5463 #### [facility] [place] [address] [employer] Instructor: Sunday Chu MD Glucose [Mass/Vol] 106 mg/dL High 65-99 [facility] Comment on above: Result Comment: Fasting reference interval For someone without known diabetes, a glucose value between 100 and 125 mg/dL is consistent with prediabetes and should be confirmed with a follow-up test. Performed By: #### 6 517, 51945, 5463 #### [facility] [place] [address] [employer] Instructor: Sunday Chu MD Potassium [Moles/Vol] 4.2 mmol/L Normal 3.5-5.[address] [facility] [address] [facility] Comment on above: Performed By: #### 6 517, 35660, 5463 #### [facility] [place] [address] [employer] Instructor: Sunday Chu MD Protein [Mass/Vol] 6.2 g/dL Normal 6.1-8.1 [facility] Comment on above: Performed By: #### 6 517, 20557, 5463 #### [facility] [place] [address] [employer] Instructor: Sunday Chu MD Sodium [Moles/Vol] 140 mmol/L Normal 135-146 [facility] Comment on above: Performed By: #### 6 517, 94950, 5463 #### [facility] [place] [address] [employer] Instructor: Sunday Chu MD Urea nitrogen [Mass/Vol] 16 mg/dL Normal 7-25 [facility] Comment on above: Performed By: #### 6 517, 32906, 5463 #### [facility] of [address] [place] [address] [employer] Instructor: Sunday Chu MD URINALYSIS, COMPLETEon 12-17 Appearance (U) CLOUDY Abnormal CLEAR [facility] Comment on above: Performed By: #### 6 517, 42973, 5463 #### [facility] of [place] [address] [employer] Instructor: Sunday Chu MD BACTERIA NONE SEEN Normal NONE SEEN [facility] Comment on above: Performed By: #### 6 517, 05154, 5463 #### [facility] of [address], [address] [place] [address] [employer] Instructor: Sunday hCu MD Bilirubin Ql (U) 1+ Abnormal NEGATIVE [facility] Comment on above: Result Comment: Pres umptive positive bilirubin. Consider confirmation by serum bilirubin if clinically indicated. Performed By: #### 6 517, 47637, 5463 #### [facility] of [place] [address] [employer] Instructor: Sunday Chu MD Color (U) DARK YELLOW Normal YELLOW [facility] Comment on above: Performed By: #### 6 517, 13695, 5463 #### [facility] [place] [address] [employer] Instructor: Sunday Chu MD Glucose Ql (U) Negative Normal NEGATIVE [facility] Comment on above: Performed By: #### 6 517, 22453, 5463 #### [facility] of [place] [address] [employer] Instructor: Sunday Chu MD HYALINE CAST 6-10 Abnormal NONE SEEN [facility] Comment on above: Performed By: #### 6 517, 58022, 5463 #### [facility] of [place] [address] [employer] Instructor: Sunday Chu MD Ketones Ql (U) 1+ Abnormal NEGATIVE [facility] Comment on above: Performed By: #### 6 517, 99721, 5463 #### [facility] of [address] [place] [address] [employer] Instructor: Sunday Chu MD Leukocyte esterase Test strip Ql (U) TRACE Abnormal NEGATIVE [facility] Comment on above: Performed By: #### 6 517, 81811, 5463 #### [facility] of [place] [address] [employer] Instructor: Sunday Chu MD Nitrite Ql (U) Negative Normal NEGATIVE [facility] Comment on above: Performed By: #### 6 517, 63674, 5463 #### [facility] of [place] [address] [employer] Instructor: Sunday Chu MD OCCULT BLOOD Negative Normal NEGATIVE [facility] Comment on above: Performed By: #### 6 517, 76414, 5463 #### [facility] of [place] [address] [employer] Instructor: Sunday Chu MD pH (U) 5.5 [pH] Normal 5.0-8.0 [facility] Comment on above: Performed By: #### 6 517, 93331, 5463 #### [facility] of [place] [address] [employer] Instructor: Sunday Chu MD Protein Ql (U) 1+ Abnormal NEGATIVE [facility] Comment on above: Performed By: #### 6 517, 24831, 5463 #### [facility] of [place] [address] [employer] Instructor: Sunday Chu MD RBC 0-2 Normal < OR = 2 [facility] Comment on above: Performed By: #### 6 517, 59806, 5463 #### [facility] of [place] [address] [employer] Instructor: Sunday Chu MD Specific gravity (U) [Rel density] 1.025 Normal 1.001-1.03 5 [facility] Comment on above: Performed By: #### 6 517, 11695, 5463 #### [facility] of [address] [place] [address] [employer] Instructor: Sunday Chu MD SQUAMOUS EPITHELIAL CELLS 0-5 Normal < OR = 5 [facility] Comment on above: Performed By: #### 6 517, 26865, 5463 #### [facility] [address] [place], [place] [address], [address] [place] [address] [employer] Instructor: Sunday Chu MD WBC NONE SEEN Normal < OR = 5 [facility] Comment on above: Performed By: #### 6 517, 82488, 5463 #### [facility] [address] [place] [address], [address] [place] [address] [employer] Instructor: Sunday Chu MD Office Visit (Cardiology)on 11-25-2022 Follow-up visit Diagnoses/Problems Assessed Paroxysmal atrial flutter (427.32) (I48.92) Anticoagulated (V58.61) (Z79.01) Pacemaker (V45.01) (Z95.0) Echocardiogram abnormal (793.2) (R93.1) Normal nuclear stress test (V72.85) Hypertension, benign (401.1) (I10) Mixed hyperlipidemia (272.2) (E78.2) Overweight with body mass index (BMI) of 27 to 27.9 in adult (278.02,V85.23) (E66.3,Z68.27) Orders Overweight with body mass index (BMI) of 27 to 27.9 in adult Healthy Weight Tips; Status:Complete; Done: [id number] Paroxysmal atrial flutter Start: dilTIAZem HCl ER Coated Beads 120 MG Oral Capsule Extended Release 24 Hour; TAKE 1 CAPSULE BY MOUTH EVERY DAY Unlinked Stop: dilTIAZem HCl - 30 MG Oral Tablet Patient Instructions Please bring all medicines, vitamins, and herbal supplements with you when you come to the office. Prescriptions will not be filled unless you are compliant with your follow up appointments or have a follow up appointment scheduled as per instruction of your physician. Refills should be requested at the time of your visit. Fall prevention education given PLAN: Through informed decision making process incorporating patients unique circumstances, the following treatment plan will be initiated: 1. Prescription drug management of cardiovascular medication for efficacy, adherence to treatment, side effect assessment and polypharmacy. Current treatment clinically warranted and to continue with following modifications: - Stop cardizem 30mg four times a day - Begin Diltiazem 120mg daily - Stay off metoprolol 2. Return for follow-up; in the interim, contact the office if new symptoms arise. Dr. Lucero as scheduled Chief Complaint 6 week f/u: 'seem to be doing better' TADEO THOMAS is being seen for a 6 week follow-up of fatigue. Patient presents to the office ambulatory with cane and steady gait, is accompanied by his . Last evaluated in clinic by myself October 2022. At that time patient complained of persistent fatigability. Subsequent hemoglobin 11.3, creatinine 0.86, Dig 0.5. Limited echo with LVEF 50%. His blood pressure was slightly low and I was hesitant to discontinue metoprolol due to atrial flutter and opted to discontinue losartan. Fortunately, the misunderstood the instructions and she discontinued metoprolol and the patient presents today feeling so much better . His blood pressure has increased, recent device interrogation without evidence of tachyarrhythmia. He presents today reporting increased energy and overall functional capacity, the verifies and they are very pleased with how things have progressed. He remains some very mild neurocognitive decline and is extremely pleasant was able to ambulate in from the parking lot without complaints, denies any orthopnea or PND. Reports prior sleep apnea but intolerant to CPAP. Noted improvement in overall exercise capacity and fatigability. He has had no additional syncopal episodes, dizziness or lightheaded. No recurrent falls. He is now 3 months post device implant with 3-month chest x-ray and device interrogation unremarkable. Cardiovascular history: September 2022 at [facility] seen in consult Dr. Dietrich d/t 2:1 atrial flutter and Mobitz II. Inpatient MPI: no ischemia, fixed inferior defect 18% artifact vs. ND September 17, 2022 implant Pearson 2272 dual chamber PPM. September 2022 Echo EF 55%: mild LVH Oct 2022 limited Echo EF 50% PAFL: no prior AA CHADS VASc: 4 anticoagulated full dose Eliquis 77y/o, cr 0.86. Denies bleeding diatheses. November 2022 device interrogation V-paced 64%, no atrial arrhythmias noted. Primary Prevention: HTN - optimal Treated HLD [facility] - on ARB/statin. Unknown HgA1c Plan today will be to simplify short acting diltiazem dosage to extended release, will remain off metoprolol. For ease of scheduling, will keep follow-up scheduled with Dr. Miller next month. History of Present Illness The patient states he has been generally doing well since the last visit. Comorbid Illnesses: hypertension and hyperlipidemia. Symptoms: denies chest pain at rest, denies exertional chest pain, denies dyspnea, improved fatigue, denies exercise intolerance, denies palpitations, denies edema, denies orthopnea, denies dizziness and denies orthostatic dizziness. Associated symptoms: no syncope. His symptoms do not limit his activities. Disease Monitoring: The patient has had a stable weight. Medications: the patient is adherent with his medication regimen. He denies medication side effects. Surgical History Problems History of Complete colonoscopy History of Cyst excision History of Facial surgery History of Jaw surgery History of Pacemaker insertion Current Meds Medication NameInstruction Alogliptin Benzoate 25 MG Oral TabletTAKE 1 TABLET BY MOUTH ONCE DAILY Digoxin 125 MCG Oral TabletTAKE 1 TABLET DAILY. dilTIAZem HCl - 30 MG Oral TabletTAKE 1 TABLET 4 TIMES DAILY Eliquis 5 MG Oral TabletTake 1 tabl (more content not included)... Normal [employer] Tobacco Screening.on 023 Fall risk assessment b) One or more fall s in the last year [facility] 250 DO Work Phone: Tobacco use status [facility] b) No [facility] 250 DO Work Phone: Radiologyon 11-17-2022 XR Chest 2 Views Normal [facility] 250 DO Work Phone: XR chest 2V*on 11-17-2022 XR chest 2V* [facility] Main [place] [address] [place] [address] XRay Report Signed Patient: Tadeo Thomas MR#: [id number] 0 : 1945 Acct:[id number] Age/Sex: 77 / M ADM Date: 11/17/22 Loc: [facility] Room: Type: [facility] Attending Dr: Ketan Lucero MD Copies to: Ketan Lucero MD Ordering Provider: Ketan Lucero MD Date of Service: 11/17/22 XR/XR chest 2V*: I49.5,Z95.0 Plain film chest 2 view HISTORY: Status post pacemaker insertion 3 months ago COMPARISON: None FINDINGS: SUPPORT DEVICES: None POSTSURGICAL CHANGES: Intact cardiac device. HEART: Within normal limits PULMONARY HARINI: Within normal limits MEDIASTINUM: Unremarkable LUNGS AND PLEURA: No acute lung process, pleural effusion or pneumothorax identified. BONY STRUCTURES: Thoracic hyperostosis ADDITIONAL FINDINGS None XR/XR chest 2V* IMPRESSION: No acute process. Intact cardiac device Impression dictated by: Moustapha Cervantes M.D.11/17/2022 4:17 PM Dictation Location: [place] [address] Transcribed By: [facility] 11/17/221616 Dictated By: Moustapha Cervantes DO 11/17/221615 Signed By: 11/17/221616 [facility] Echocardiogramon 11-12-[address], [address] [place] [address] TRANSTHORACIC ECHOCARDIOGRAM REPORT Patient Name: TADEO THOMAS Reading Physician: [id number] Samra Garza MD Study Date: 11/12/2022 Referring Physician: OLGA WYATT MRN/PID: [id number] PCP: Aracelis Pedroza MD Accession/Order#: [id number] Department Location: [facility] Date of : 1945 Fellow: Gender: M Nurse: Admit Date: Handle Rounder Operator: Isabella Howard [facility] Height: 167.64 cm CC Report to: Weight: 76.20 kg Study Type: Echocardiogram BSA: 1.86 m2 Blood Pressure: 112 /56 mmHg Diagnosis/ICD: R93.1-Abnormal findings on diagnostic imaging of heart and coronary circulation; Z95.0-Presence of cardiac pacemaker; I48.92-Unspecified atrial flutter Indication: Abnormal EKG, Diabetes, HTN, Hyperlipidemia, Former Smoker, Overweight Procedure/CPT: Echo Limited-52324 Study Detail: The following Echo studies were performed: 2D and M-Mode. PHYSICIAN INTERPRETATION: Left Ventricle: Left ventricular systolic function is mildly decreased, with an estimated ejection fraction of 50%. The left ventricular cavity size is normal. Left ventricular diastolic filling was not assessed. Left Atrium: The left atrium is normal in size. Right Ventricle: The right ventricle is normal in size. There is normal right ventricular global systolic function. Right Atrium: The right atrium is normal in size. Aortic Valve: The aortic valve appears abnormal. There is mild aortic valve cusp calcification. Aortic valve regurgitation was not assessed. Mitral Valve: The mitral valve is normal in structure. Mitral valve regurgitation was not assessed. Tricuspid Valve: The tricuspid valve is structurally normal. Tricuspid regurgitation was not assessed. Pulmonic Valve: The pulmonic valve is structurally normal. The pulmonic valve regurgitation was not assessed. Pericardium: There is no pericardial effusion noted. Aorta: The aortic root is normal. CONCLUSIONS: 1. Left ventricular systolic function is mildly decreased with a 50% estimated ejection fraction. 2. Aortic valve appears abnormal. 3. This study was ordered as limited study to assess LV systolic function. No previous study available for comparison. QUANTITATIVE DATA SUMMARY: 2D MEASUREMENTS: Normal Ranges: Ao Root d: 3.60 cm (2.0-3.7cm) LAs: 4.30 cm (2.7-4.0cm) RVIDd: 3.00 cm (0.9-3.6cm) IVSd: 1.20 cm (0.6-1.1cm) LVPWd: 1.10 cm (0.6-1.1cm) LVIDd: 5.20 cm (3.9-5.9cm) LVIDs: 3.80 cm LV Mass Index: 126.3 g/m2 LV % FS 26.9 % LV SYSTOLIC FUNCTION BY 2D PLANIMETRY (MOD): Normal Ranges: EF-A4C View: 50.0 % (>=55%) AORTIC VALVE: Normal Ranges: LVOT Diameter: 2.50 cm (1.8-2.4cm) [id number] Samra Garza MD Electronically signed on 11/12/2022 at 10:16:[address] [facility] Office Visit (Cardiology)on 10-21-2022 Follow-up visit Diagnoses/Problems Assessed Paroxysmal atrial flutter (427.32) (I48.92) Anticoagulated (V58.61) (Z79.01) Hypertension, benign (401.1) (I10) Type 2 diabetes mellitus without complication, without long-term current use of insulin (250.00) (E11.9) Mixed hyperlipidemia (272.2) (E78.2) Echocardiogram abnormal (793.2) (R93.1) Abnormal finding on cardiovascular stress test (794.39) (R94.39) Pacemaker (V45.01) (Z95.0) Overweight with body mass index (BMI) of 27 to 27.9 in adult (278.02,V85.23) (E66.3,Z68.27) Orders Echocardiogram abnormal, Pacemaker, Paroxysmal atrial flutter Basic Metabolic Panel; Status:Active; Requested for:21Oct2022; Complete Blood Count; Status:Active; Requested for:21Oct2022; Digoxin Level, Serum; Status:Active; Requested for:21Oct2022; Echocardiogram; Status:Hold For - Scheduling; Requested for:21Oct2022; Overweight with body mass index (BMI) of 27 to 27.9 in adult Healthy Weight Tips; Status:Complete; Done: 21Oct2022 Unlinked Stop: Losartan Potassium 25 MG Oral Tablet Patient Instructions Please bring all medicines, vitamins, and herbal supplements with you when you come to the office. Prescriptions will not be filled unless you are compliant with your follow up appointments or have a follow up appointment scheduled as per instruction of your physician. Refills should be requested at the time of your visit. PLAN: Through informed decision making process incorporating patients unique circumstances, the following treatment plan will be initiated: 1. Prescription drug management of cardiovascular medication for efficacy, adherence to treatment, side effect assessment and polypharmacy. Current treatment clinically warranted and to continue with following modifications: - Hold losartan for now (will see if low blood pressure is making him tired) 2. Labs: CBC, Chem6, dig level 3. Limited echo f/u heart muscle function in setting RV pacing d/t profound fatigue/weakness 4. I will have device clinic call you to send in a remote check 5. Return for follow-up; in the interim, contact the office if new symptoms arise. 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 Patient presents to the office today accompanied by . This is initial in clinic follow-up at [facility]. Throughout the summer patient reports dizziness and shortness of breath and frequent falls. PCP completed a Holter monitor and echocardiogram. The Holter monitor showed 2-1 atrial flutter and patient was instructed to present to local hospital. September 2022 at [facility] seen in consult Dr. Dietrich d/t 2:1 atrial flutter and Mobitz II. Outpatient echo: EF 55, LVH mild Inpatient MPI: no ischemia, fixed inferior defect 18% artifact vs. ND September 17, 2022 impant Pearson 2272 dual chamber PPM. At discharge added toprol, digoxin and diltiazem. Wound check completed by MA: site examined today and well-healed, device has a easily palpable. September 30, 2022: Dr. Lucero added Eliquis to medical regimen after discussing Holter results with PCP. Since discharge patient reports 2 spells that were not that bad . There is no syncopal episode or fall, simply reports some mild dizziness. The reports significant fatigability and sleeping all the time . Patient has some mild neurocognitive decline and remains extremely pleasant but is somewhat of a difficult historian. He simply reports I am just tired . He did ambulate in from the parking lot without voiced complaints. He sleeps in the bed without orthopnea or PND. Reports prior sleep apnea but intolerant to CPAP. The is concerned regarding this change in exercise capacity and fatigability. He did start Eliquis and denies any type of melena or bleeding events. [facility] Since [facility] they reported 10 pound weight loss. ECG in office today AV paced, QRS 166. Standing BP 90/60. 2:1 atrial flutter: ablation not optimal option due to frailty. For now we will hold losartan due to postural orthostatic hypotension. Question if Toprol contributing fatigability but hesitant to reduce AV sandra agents due to 2:1 atrial flutter. Will check remote device interrogation. Labs. Limited echo History of Present Illness The patient states he has been generally stable since the last visit. Comorbid Illnesses: diabetes mellitus, hypertension and hyperlipidemia. Symptoms: denies chest pain at rest, denies exertional chest pain, improved dyspnea, improved fatigue, improved exercise intolerance, resolved palpitations, denies edema, denies orthopnea, improved dizziness and denies orthostatic dizziness. Associated symptoms: no syncope. Disease Monitoring: The patient has had a stable weight. Medications: the patient is adherent with his medication regimen. He denies medication side effects. Surgical History Problems History of Complete colonoscopy History of Cyst excision History of Facial surgery His (more content not included)... Normal [employer] Tobacco Screening.on 023 Adult depression screening assessment No [facility] 250 DO Work Phone: Fall risk assessment b) One or more fall s in the last year [facility] 250 DO Work Phone: Tobacco use status [facility] b) No [facility] 250 DO Work Phone: Radiologyon 09-25-2022 XR Chest 2 Views Normal [facility] 250 DO Work Phone: XR chest 2V*on 09-25-2022 XR chest 2V* [facility] Main [place] [address] [place] [address] XRay Report Signed Patient: Tadeo Thomas MR#: [id number] 0 : 1945 Acct:[id number] Age/Sex: 77 / M ADM Date: 09/25/22 Loc: XD Room: Type: [facility] Attending Dr: Ketan Lucero MD Copies to: Ketan Lucero MD Ordering Provider: Ketan Lucero MD Date of Service: 09/25/22 XR/XR chest 2V*: Z95.0 PA AND LATERAL CHEST: CLINICAL HISTORY: Follow-up pacemaker COMPARISON: 09/18/2022 There is a stable left dual-lead pacemaker. The study was obtained with shallow inspiration. There is no focal parenchymal consolidation, effusion or pneumothorax. The cardiac, hilar and mediastinal silhouettes are within normal limits. There is no vascular congestion. The visualized bony thorax is intact. Degenerative changes and scoliosis are seen at the spine. XR/XR chest 2V* IMPRESSION: STABLE PACEMAKER. NO ACUTE CARDIOPULMONARY ABNORMALITY. Impression dictated by: Germaine Storey M.D.09/25/2022 3:00 PM Dictation Location: [place] [address] Transcribed By: GARCÍA 09/25/22 1500 Dictated By: Germaine Storey MD 09/25/22 1459 Signed By: 09/25/22 1500 Normal [facility] CA holter monitor recordingo n 09-18-2022 CA holter monitor recording [facility] Main [place] [address] [place] [address] Holter Monitor Report Signed Patient: Tadeo Thomas MR#: [id number] 0 : 1945 Acct:[id number] Age/Sex: 77 / M ADM Date: 09/11/22 Loc: Room: Type: [facility] Attending Dr: Aracelis Pedroza MD Copies to: Fior Saleem MD, [facility] Aracelis Pedroza MD Ordering Provider: Aracelis Pedroza MD Date of Service: 09/11/22 CA/CA holter monitor recording: r00.9,r94.31 ORDERED BY: Aracelis Pedroza MD INDICATIONS: A 77-year-old patient with palpitations. 1. The rhythm is sinus for the most part. Average heart rate, though, is elevated at 100 beats per minute. The minimum heart rate was 48 beats per minute at 5:49 a.m. Maximum heart rate was 156 beats per minute at 9:51 p.m., which was an episode of atrial flutter with 2:1 AV conduction. 2. Large volume of premature ventricular complexes. There are 5592 beats in total, representing 3.9% of total QRS complexes. There is a very large number of ventricular couplets with 248 events noted and 7 events of ventricular triplets and a 4-beat run of ventricular tachycardia at rate 132 beats per minute. None of these events were symptomatic. 3. Very large volume of premature supraventricular complexes. The premature atrial complexes representing 59% of total QRS complexes. There were multiple runs of atrial fibrillation and atrial flutter with 2:1 AV conduction. The fastest event was at rate 188 beats per minute at 9:51 a.m. There is a large volume of atrial couplets noted with 4043 beats in total events. 4. No pauses exceeding 2 seconds were seen. 5. The patient's diary had multiple entries for symptoms of dizziness, dyspnea and feeling sweaty, correlated with atrial flutter with 2:1 AV conduction or atrial fibrillation. CONCLUSION: This is an abnormal 24-hour Holter monitor that demonstrated evidence of frequent runs of atrial fibrillation with RVR and flutter, 2:1 AV conduction. There was also a very large number of premature atrial complexes, representing 59% of total QRS complexes. Along with that, there was also a large volume of complex ventricular arrhythmias including 4-beat run of ventricular tachycardia and 7 events of ventricular triplets and 248 events of ventricular couplets. The PVCs represented 3.9% of total QRS complexes. The patient's average heart rate was 100 beats per minute, which is in the upper normal range. It was mostly sinus rhythm. COMMENT: The patient was directed after reviewing this Holter monitor to present to the emergency department and subsequently was admitted. Transcribed By: NTS 09/18/22 2019 Dictated By: Fior Saleem MD, [facility] 09/18/22 1718 Signed By: 09/21/22 0911 [facility] Glucose Glucometer (BldC) [M ass/Vol]Ordered By: Charlie Varner on 09-18-2022 Glucose [Mass/Vol] 206 mg/dL [facility] Comment on above: Random Glucose Refer ence Range is dependent on time and content of last meal. Glucose of more than 200 mg/dL in a nonstressed, ambulatory subject supports the diagnosis of Diabetes Mellitus. Glucose Poct Glucometerson 0 09-18-2022 Commemt1 Glu2: Cleaned Meter [facility] Comment on above: Result Comment: PERF ORMED BY: [facility] [address] [place] [address] PATHOLOGIST AUDIOLOGY ASSISTANT KASSANDRA STACK M.D. Performed By: #### G LULS ####Point of Care testing, Glucose [Mass/Vol] 355 mg/dL Normal [facility] Comment on above: Result Comment: [facility] Glucose Reference Range is dependent on time and content of last meal. Glucose of more than 200 mg/dL in a nonstressed, ambulatory subject supports the diagnosis of Diabetes Mellitus. Performed By: #### G LULS ####Point of Care testing, Commemt1 Glu2: Cleaned Meter [facility] Comment on above: Result Comment: PERF ORMED BY: [place] [id number] PATHOLOGIST AUDIOLOGY ASSISTANT KASSANDRA STACK M.D. Performed By: #### G LULS ####Point of Care testing, Glucose [Mass/Vol] 206 mg/dL Normal [facility] Comment on above: Result Comment: [facility] Glucose Reference Range is dependent on time and content of last meal. Glucose of more than 200 mg/dL in a nonstressed, ambulatory subject supports the diagnosis of Diabetes Mellitus. Performed By: #### G LULS ####Point of Care testing, No Panel InformationOrdered By: Charlie Varner on 09-18-2022 Bedside Glucose Comment Glu2: cleaned meter [facility] STR cardiac stress/lexiscano n 09-18-2022 STR cardiac stress/lexiscan [facility] Main [address] [address] Cardiac Stress Test Signed Patient: Tadeo Thomas MR#: [id number] 0 : 1945 Acct:[id number] Age/Sex: 77 / M ADM Date: 09/14/22 Loc: Room: [address] [place] [address] Type: DIS IN Attending Dr: Charlie Varner MD Copies to: Fior Saleem MD, [facility] Tae Dietrich MD Ordering Provider: Tae Dietrich MD Date of Service: 09/17/22 STR/STR cardiac stress/lexiscan: chest pain ORDERED BY: Tae Dietrich MD INDICATION: A 77-year-old patient with sick sinus syndrome. Resting ECG revealed normal sinus rhythm with frequent premature atrial complexes and right bundle branch block. Resting heart rate 69 beats per minute and resting blood pressure 128/67 mmHg. Following intravenous administration of 400 mcg of Lexiscan over 10 seconds, no ischemic EKG changes were noted. The patient had an episode of atrial flutter with 2:1 AV conduction, which resolved spontaneously. Cardiolite study followed. CONCLUSION: 1. No Lexiscan-induced ischemic EKG changes and no chest pain. 2. Frequent isolated PACs along with runs of atrial flutter with 2:1 AV conduction during the stress test, which were self-limited and inconsequential with occasional PVCs noted. 3. No chest pain reported by the patient. 4. Cardiolite studies to be reported separately by Nuclear Cardiology. Transcribed By: ULISSES 09/18/222043 Dictated By: Fior Saleem MD, [facility] 09/18/22 1748 Signed By: 09/21/22 0911 [facility] XR chest 2V*on 09-18-2022 XR chest 2V* [facility] [place] [address] XRay Report Signed Patient: Tadeo Thomas MR#: [id number] 0 : 1945 Acct:[id number] Age/Sex: 77 / M ADM Date: 09/14/22 Loc: Room: [address] [place] [address] Type: ADM IN Attending Dr: Charlie Varner MD Copies to: MD Ketan Escalera MD Ordering Provider: Ketan Lucero MD Date of Service: 09/18/22 XR/XR chest 2V*: Rule out pneumothorax on only new implants cases in am Plain film chest 2 view HISTORY: Postop pacemaker insertion follow-up assessment COMPARISON: 09/17/22 FINDINGS: SUPPORT DEVICES: None POSTSURGICAL CHANGES: Intact cardiac device. HEART: Within normal limits PULMONARY HARINI: Within normal limits MEDIASTINUM: Unremarkable LUNGS AND PLEURA: No acute lung process, pleural effusion or pneumothorax identified. BONY STRUCTURES: Thoracic spondylosis. Similar scoliosis. ADDITIONAL FINDINGS None XR/XR chest 2V* IMPRESSION: No postprocedure pneumothorax. Intact cardiac device. Impression dictated by: Moustapha Cervantes M.D.09/18/2022 10:39 AM Dictation Location: [place] [address] Transcribed By: [facility] 09/18/22 1039 Dictated By: Moustapha Cervantes DO 09/18/22 1038 Signed By: 09/18/22 1039 [facility] Activated partial thrombopla stin time (aPTT) in platelet poor plasma by coagulation aOrdered By: Tae Dietrich on 09-17-2022 aPTT Coag (PPP) [Time] 26.8 s 25.1-36.5 [facility] Basic Metabolic Panelon 07-0 Anion gap [Moles/Vol] 10.1 mmol/L Normal 6.0-15.0 [facility] Comment on above: Performed By: #### B MP, CBC, PT, PTT ####[place] [address] [place] [address] [facility] Calcium [Mass/Vol] 8.9 mg/dL Normal 8.6-10.3 [facility] Comment on above: Performed By: #### B MP, CBC, PT, PTT ####[place] [address] [place] [address] [facility] Chloride [Moles/Vol] 101 mmol/L Normal 98-[address] [facility] Comment on above: Performed By: #### B MP, CBC, PT, PTT ####[address] [address] [facility] CO2 [Moles/Vol] 30.0 mmol/L Normal 21.0-31.0 [facility] Comment on above: Performed By: #### B MP, CBC, PT, PTT ####[address] [address] [facility] Creatinine [Mass/Vol] 0.87 mg/dL Normal 0.70-1.30 [facility] Comment on above: Performed By: #### B MP, CBC, PT, PTT ####[address] [address] [address] [facility] Creatinine Clr Calc Pharmacy 67.70 [facility] Comment on above: Result Comment: PERF ORMED BY: [facility] [address] [place] [id number] PATHOLOGIST AUDIOLOGY ASSISTANT KASSANDRA TSACK M.D. Performed By: #### B MP, CBC, PT, PTT ####[place] [address] [place] [id number] [facility] GFR/1.73 sq M.predicted MDRD (S/P/Bld) [Vol rate/Area] mL/min/{1.73_m2} [facility] Comment on above: Performed By: #### B MP, CBC, PT, PTT ####[place] [address] [place] [address] [facility] Glucose [Mass/Vol] 234 mg/dL High 70-100 [facility] Comment on above: Result Comment: [facility] Glucose Reference Range is dependent on time and content of last meal. Glucose of more than 200 mg/dL in a nonstressed, ambulatory subject supports the diagnosis of Diabetes Mellitus. ADA recommended reference range Performed By: #### B MP, CBC, PT, PTT ####[facility] [id number] [place] [address] [facility] Potassium [Moles/Vol] 4.1 mmol/L Normal 3.5-5.1 [facility] Comment on above: Performed By: #### B MP, CBC, PT, PTT ####[place] [address] [place] [address] [facility] Sodium [Moles/Vol] 137 mmol/L Normal 136-145 [facility] Comment on above: Performed By: #### B MP, CBC, PT, PTT ####[facility] [place] [address] [facility] Urea nitrogen [Mass/Vol] 13 mg/dL Normal 7-25 [facility] Comment on above: Performed By: #### B MP, CBC, PT, PTT ####[facility] [place] [address] [facility] Basophils Auto (Bld) [#/Vol] Ordered By: Tae Dietrich on 09-17-2022 Basophils (Bld) [#/Vol] 0.0 10*3/uL 0.0-0.2 [facility] Basophils/100 WBC Auto (Bld) Ordered By: Tae Dietrich on 09-17-2022 Basophils/100 WBC (Bld) 0.2 % . [facility] Calcium [Mass/volume] in Ser um or PlasmaOrdered By: Tae Dietrich on 09-17-2022 Calcium [Mass/Vol] 8.9 mg/dL 8.6-10.3 [facility] Carbon dioxide, total [Moles /volume] in Serum or PlasmaOrdered By: Tae Dietrich on 09-17-2022 CO2 [Moles/Vol] 30.0 mmol/L 21.0-31.0 [facility] Chloride [Moles/volume] in S estela or PlasmaOrdered By: Tae Dietrich on 09-17-2022 Chloride [Moles/Vol] 101 mmol/L 98-[address] [facility] Complete Blood Count Auto Di ffon 09-17-2022 Basophils (Bld) [#/Vol] 0.0 10*3/uL Normal 0.0-0.2 [facility] Comment on above: Result Comment: PERF ORMED BY: [facility] [address] [facility] [address] PATHOLOGIST AUDIOLOGY ASSISTANT KASSANDRA STACK M.D. Performed By: #### B MP, CBC, PT, PTT ####[address] Basophils/100 WBC (Bld) 0.2 % Normal . [facility] Comment on above: Performed By: #### B MP, CBC, PT, PTT ####[place] [id number] [facility] Eosinophils (Bld) [#/Vol] 0.0 10*3/uL Normal 0.0-0.45 [facility] Comment on above: Performed By: #### B MP, CBC, PT, PTT ####[place] [id number] [facility] Eosinophils/100 WBC (Bld) 0.3 % Normal . [facility] Comment on above: Performed By: #### B MP, CBC, PT, PTT ####[place] [id number] [facility] Erythrocyte distribution width (RBC) [Ratio] 13.5 % Normal 12.0-14.8 [facility] Comment on above: Performed By: #### B MP, CBC, PT, PTT ####[place] [id number] [facility] Hematocrit (Bld) [Volume fraction] 37.9 % Low 38.8-50.0 [facility] Comment on above: Performed By: #### B MP, CBC, PT, PTT ####[address] Hemoglobin (Bld) [Mass/Vol] 13.1 g/dL Normal 13.0-17.0 [facility] Comment on above: Performed By: #### B MP, CBC, PT, PTT ####[address] Lymphocytes (Bld) [#/Vol] 4.5 10*3/uL Normal 1.00-4.8 [facility] Comment on above: Performed By: #### B MP, CBC, PT, PTT ####[address] Lymphocytes/100 WBC (Bld) 43.7 % Normal . [facility] Comment on above: Performed By: #### B MP, CBC, PT, PTT ####[address] MCH (RBC) [Entitic mass] 34.1 pg Normal 27.5-35.2 [facility] Comment on above: Performed By: #### B MP, CBC, PT, PTT ####[address] MCV (RBC) [Entitic vol] 98.9 fL Normal 83.5-101 [facility] Comment on above: Performed By: #### B MP, CBC, PT, PTT ####[address] Mean Corpuscular HGB Conc 34.5 g/dL Normal 32.5-35.6 [facility] Comment on above: Performed By: #### B MP, CBC, PT, PTT ####[address] Monocytes (Bld) [#/Vol] 0.6 10*3/uL Normal 0.0-0.8 [facility] Comment on above: Performed By: #### B MP, CBC, PT, PTT ####[address] Monocytes/100 WBC (Bld) 5.4 % Normal . [facility] Comment on above: Performed By: #### B MP, CBC, PT, PTT ####[address] Neutrophils (Bld) [#/Vol] 5.2 10*3/uL Normal 1.8-7.7 [facility] Comment on above: Performed By: #### B MP, CBC, PT, PTT ####[address] Neutrophils/100 WBC (Bld) 50.4 % Normal . [facility] Comment on above: Performed By: #### B MP, CBC, PT, PTT ####[address] NRBC% 0.5 /100{WBC} Normal 0-0.5 [facility] Comment on above: Performed By: #### B MP, CBC, PT, PTT ####[address] Platelet mean volume (Bld) [Entitic vol] 8.5 fL Normal 6.6-10.1 [facility] Comment on above: Performed By: #### B MP, CBC, PT, PTT ####[address] Platelets (Bld) [#/Vol] 213 10*3/uL Normal 150-450 [facility] Comment on above: Performed By: #### B MP, CBC, PT, PTT ####[address] RBC (Bld) [#/Vol] 3.83 10*6/uL Low 3.90-5.60 [facility] Comment on above: Performed By: #### B MP, CBC, PT, PTT ####[address] WBC (Bld) [#/Vol] 10.3 10*3/uL Normal 4.1-10.5 [facility] Comment on above: Performed By: #### B MP, CBC, PT, PTT ####[facility] [id number] [place] [id number] [facility] Creatinine [Mass/volume] in Serum or PlasmaOrdered By: Tae Dietrich on 09-17-2022 Creatinine [Mass/Vol] 0.87 mg/dL 0.70-1.30 [facility] ECG 12 lead ECGon 09-17-2022 ECG 12 lead ECG [facility] Main [place] [address] [place] [address] Electrocardiograph Report Signed Patient: Tadeo Thomas MR#: [id number] 0 : 1945 Acct:[id number] Age/Sex: 77 / M ADM Date: 09/14/22 Loc: Room: [address] [place] [address] Type: ADM IN Attending Dr: Charlie Varner MD Ordering Provider: Ketan Lucero MD Date of Service: 09/17/2209/05/799 ECG/ECG 12 lead ECG: pre op Copies to: Test Reason : Blood Pressure : / mmHG Vent. Rate : 080 BPM Atrial Rate : 110 BPM P-R Int : 000 ms QRS Dur : 154 ms QT Int : 440 ms P-R-T Axes : 000 043 013 degrees QTc Int : 507 ms Normal sinus rhythm PVC's and PAC's Right bundle branch block Abnormal ECG When compared with ECG of 15-SEP-2022 11:19, ectopy noted QT has lengthened Confirmed by MOUSTAPHA THAKKAR DO ([id number]) on 09/17/2022 1:10:26 PM Referred By: Electronically Signed By:MOUSTAPHA THAKKAR DO Transcribed By: MUS Signed By Moustapha Thakkar DO 09/17 1310 Normal [facility] Eosinophils Auto (Bld) [#/Vo l]Ordered By: Tae Dietrich on 09-17-2022 Eosinophils (Bld) [#/Vol] 0.0 10*3/uL 0.0-0.45 [facility] Eosinophils/100 WBC Auto (Bl d)Ordered By: Tae Dietrich on 07-06-2023 Eosinophils/100 WBC (Bld) 0.3 % . [facility] Erythrocyte distribution wid th Auto (RBC) [Ratio]Ordered By: Tae Dietrich on 09-17-2022 Erythrocyte distribution width (RBC) [Ratio] 13.5 % 12.0-14.8 [facility] Glucose Poct Glucometerson 0 09-17-2022 Glucose [Mass/Vol] 188 mg/dL Normal [facility] Comment on above: Result Comment: [facility] Glucose Reference Range is dependent on time and content of last meal. Glucose of more than 200 mg/dL in a nonstressed, ambulatory subject supports the diagnosis of Diabetes Mellitus. PERFORMED BY: [facility] [address] [facility] [place] [address] PATHOLOGIST AUDIOLOGY ASSISTANT KASSANDRA STACK M.D. Performed By: #### G LULS ####Point of Care testing, Glucose [Mass/Vol] 236 mg/dL Normal [facility] Comment on above: Result Comment: [facility] Glucose Reference Range is dependent on time and content of last meal. Glucose of more than 200 mg/dL in a nonstressed, ambulatory subject supports the diagnosis of Diabetes Mellitus. PERFORMED BY: [facility] [address] [facility] [place] [address] PATHOLOGIST AUDIOLOGY ASSISTANT KASSANDRA STACK M.D. Performed By: #### G LULS ####Point of Care testing, Glucose [Mass/Vol] 260 mg/dL Normal [facility] Comment on above: Result Comment: [facility] Glucose Reference Range is dependent on time and content of last meal. Glucose of more than 200 mg/dL in a nonstressed, ambulatory subject supports the diagnosis of Diabetes Mellitus. PERFORMED BY: [facility] [address] [facility] [place] [address] PATHOLOGIST AUDIOLOGY ASSISTANT KASSANDRA STACK M.D. Performed By: #### G LULS ####Point of Care testing, Glucose [Mass/volume] in Ser um or PlasmaOrdered By: Tae Dietrich on 09-17-2022 Glucose [Mass/Vol] 234 mg/dL 70-100 [facility] Comment on above: ADA recommended refe rence rangeRandom Glucose Reference Range is dependent on time and content of last meal. Glucose of more than 200 mg/dL in a nonstressed, ambulatory subject supports the diagnosis of Diabetes Mellitus. Hematocrit Auto (Bld) [Volum e fraction]Ordered By: Tae Dietrich on 09-17-2022 Hematocrit (Bld) [Volume fraction] 37.9 % 38.8-50.0 [facility] Hemoglobin [Mass/volume] in BloodOrdered By: Tae Dietrich on 09-17-2022 Hemoglobin (Bld) [Mass/Vol] 13.1 g/dL 13.0-17.0 [facility] Laboratory - CoagulationOrde red By: Tae Dietrich on 09-17-2022 PT Coag (PPP) [Time] 12.3 s 9.0-12.[address] [facility] Leukocytes [#/volume] correc ale for nucleated erythrocytes in Blood by Automated counOrdered By: Tae Dietrich on 09-17-2022 WBC corrected for nucl RBC Auto (Bld) [#/Vol] 10.3 10*3/uL 4.1-10.5 [facility] Lymphocytes Auto (Bld) [#/Vo l]Ordered By: Tae Dietrich on 09-17-2022 Lymphocytes (Bld) [#/Vol] 4.5 10*3/uL 1.00-4.8 [facility] Lymphocytes/100 WBC Auto (Bl d)Ordered By: Tae Dietrich on 09-17-2022 Lymphocytes/100 WBC (Bld) 43.7 % . [facility] MCH Auto (RBC) [Entitic mass ]Ordered By: Tae Dietrich on 09-17-2022 MCH (RBC) [Entitic mass] 34.1 pg 27.5-35.2 [facility] MCHC Auto (RBC) [Mass/Vol]Or dered By: Tae Dietrich on 09-17-2022 MCHC (RBC) [Mass/Vol] 34.5 g/dL 32.5-35.6 [facility] MCV Auto (RBC) [Entitic vol] Ordered By: Tae Dietrich on 09-17-2022 MCV (RBC) [Entitic vol] 98.9 fL 83.5-101 [facility] Monocytes Auto (Bld) [#/Vol] Ordered By: Tae Dietrich on 09-17-2022 Monocytes (Bld) [#/Vol] 0.6 10*3/uL 0.0-0.8 [facility] Monocytes/100 WBC Auto (Bld) Ordered By: Tae Dietrich on 09-17-2022 Monocytes/100 WBC (Bld) 5.4 % . [facility] NM sukhwinder perf SPECT rest stron 09-17-2022 NM sukhwinder perf SPECT rest str [facility] [place] [address] Nuclear Medicine Report Signed Patient: Tadeo Thomas MR#: [id number] 0 : 1945 Acct:[id number] Age/Sex: 77 / M ADM Date: 09/14/22 Loc: Room: [address] [place] [address] Type: ADM IN Attending Dr: Charlie Varner MD Copies to: MD Fior Escalera MD, [facility] Tae Dietrich MD Ordering Provider: Tae Dietrich MD Date of Service: 09/17/22 NM/NM sukhwinder perf SPECT rest str: chest pain, DOSE ORDERED ORDERED BY: Tae Dietrich MD A 77-year-old patient with chest pain. Resting images were obtained after intravenous administration of 6 mCi of Cardiolite given on 09/16/2022, and stress images were obtained after intravenous administration of 18.9 mCi of Cardiolite given after Lexiscan administration on 09/17/2022. Subsequently, SPECT MPI was obtained. The study was not gated due to irregular heartbeats. TOMOGRAPHIC DATA: There is a moderate-sized fixed perfusion defect involving inferior wall. Since the study was not gated, it is not possible to tell on whether this is an attenuation artifact or true myocardial infarction involving the inferior wall. No reversible perfusion defects are noted. TID is normal at 1.01. CONCLUSION: 1. Abnormal Lexiscan Cardiolite SPECT MPI. 2. Fixed inferior perfusion defect occupying 18% of the myocardium. This defect could not be labeled as attenuation artifact or myocardial infarction since the study was not gated. 3. No tomographic evidence of ischemia. 4. Normal TID at 1.01. 5. Ejection fraction could not be measured since the study was not gated. Transcribed By: ULISSES 09/17/22 2016 Dictated By: Fior Saleem MD, [facility] 09/17/22 1751 Signed By: 09/18/22 1520 Normal [facility] Neutrophils Auto (Bld) [#/Vo l]Ordered By: Tae Dietrich on 09-17-2022 Neutrophils (Bld) [#/Vol] 5.2 10*3/uL 1.8-7.7 [facility] Neutrophils/100 WBC Auto (Bl d)Ordered By: Tae Dietrich on 09-17-2022 Neutrophils/100 WBC (Bld) 50.4 % . [facility] No Panel InformationOrdered By: Tae Dietrich on 09-17-2022 Estimated GFR (CKD-EPI) > 60.0 mL/Min [facility] Pharmacy Creatinine Clearance (Chem 67.70 [facility] Nucleated erythrocytes [Pres ence] in Blood by Automated countOrdered By: Tae Dietrich on 09-17-2022 Nucleated RBC Auto Ql (Bld) 0.5 /100{WBC} 0-0.5 [facility] Partial Thromboplastin Timeo n 09-17-2022 aPTT Coag (Bld) [Time] 26.8 s Normal 25.1-36.5 [facility] Comment on above: Result Comment: PERF ORMED BY: [facility] [address] [place] [address] PATHOLOGIST AUDIOLOGY ASSISTANT KASSANDRA STACK M.D. Performed By: #### B MP, CBC, PT, PTT ####[facility] [id number] [address] Platelet mean volume Auto (B ld) [Entitic vol]Ordered By: Tae Dietrich on 09-17-2022 Platelet mean volume (Bld) [Entitic vol] 8.5 fL 6.6-10.1 [facility] Platelet poor plasma interna tional normalized ratio (INR) by coagulation assay (relatOrdered By: Tae Dietrich on 09-17-2022 INR Coag (PPP) [Relative time] 1.1 {INR} [facility] Comment on above: INR Therapeutic Rang e A) Pre- and Peroperative OAT started two weeks before surgery. NOT HIP SURGERY: 1.5 - 2.5 HIP SURGERY: 2 - 3B) Primary and secondary prevention of venous THROMBOSIS: 2 - 3C) Active venous thrombosis, pulmonary embolismand prevention of recurrent venous thrombosis: 2 - 3D) Prevention of arterial thromboembolismincluding patients with mechanical heart valves: 3 - 4.5 Platelets Auto (Bld) [#/Vol] Ordered By: Tae Dietrich on 09-17-2022 Platelets (Bld) [#/Vol] 213 10*3/uL 150-450 [facility] Potassium [Moles/volume] in Serum or PlasmaOrdered By: Tae Dietrich on 09-17-2022 Potassium [Moles/Vol] 4.1 mmol/L 3.5-5.1 [facility] Prothrombin Time INRon 09-17 INR Coag (PPP) [Relative time] 1.1 {INR} Normal [facility] Comment on above: Result Comment: INR Therapeutic Range A) Pre- and Peroperative OAT started two weeks before surgery. NOT HIP SURGERY: 1.5 - 2.5 HIP SURGERY: 2 - 3 B) Primary and secondary prevention of venous THROMBOSIS: 2 - 3 C) Active venous thrombosis, pulmonary embolism and prevention of recurrent venous thrombosis: 2 - 3 D) Prevention of arterial thromboembolism including patients with mechanical heart valves: 3 - 4.5 Performed By: #### B MP, CBC, PT, PTT ####[facility] [id number] [address] PT Coag (PPP) [Time] 12.3 s Normal 9.0-12.[address] [facility] Comment on above: Performed By: #### B MP, CBC, PT, PTT ####[facility] [id number] [address] RBC Auto (Bld) [#/Vol]Ordere d By: Tae Dietrich on 09-17-2022 RBC (Bld) [#/Vol] 3.83 10*6/uL 3.90-5.60 [facility] Serum or plasma anion gap de terminationOrdered By: Tae Dietrich on 09-17-2022 Anion gap [Moles/Vol] 10.1 mmol/L 6.0-15.0 [facility] Sodium [Moles/volume] in Ser um or PlasmaOrdered By: Tae Dietrich on 09-17-2022 Sodium [Moles/Vol] 137 mmol/L 136-145 [facility] Urea nitrogen [Mass/volume] in Serum or PlasmaOrdered By: Tae Dietrich on 09-17-2022 Urea nitrogen [Mass/Vol] 13 mg/dL 7-25 [facility] WBC Auto (Bld) [#/Vol]Ordere d By: Tae Dietrich on 09-17-2022 WBC (Bld) [#/Vol] 10.3 10*3/uL 4.1-10.5 [facility] XR chest 1V portableon 09-17 XR chest 1V portable [facility] [place] [address] XRay Report Signed Patient: Tadeo Thomas MR#: [id number] 0 : 1945 Acct:[id number] Age/Sex: 77 / M ADM Date: 09/14/22 Loc: Room: [address] [place] [address] Type: ADM IN Attending Dr: Charlie Varner MD Copies to: Charlie Varner MD Ordering Provider: Charlie Varner MD Date of Service: 09/17/22 XR/XR chest 1V portable: S/P PACEMAKER PORTABLE AP ERECT CHEST 1715 hours CLINICAL HISTORY: Follow-up after pacemaker placement COMPARISON: 09/14/2022 There is shallow inspiration. There is a new left dual-lead pacemaker in appropriate position. There is no developing consolidation, sizable effusion or pneumothorax . A calcified granuloma is again seen on the right. The heart is within normal limits for size. The bony structures are osteopenic. There is endplate spurring at the spine. XR/XR chest 1V portable IMPRESSION: SATISFACTORY APPEARANCE OF PACEMAKER. NO POSTPROCEDURE PNEUMOTHORAX. Impression dictated by: Germaine Storey M.D.09/17/2022 5:22 PM Dictation Location: [place] [address] Transcribed By: [facility] 09/17/22 172 Dictated By: Germaine Storey MD 09/17/221720 Signed By: 09/17/221721 [facility] Basic Metabolic Panelon 07-0 Anion gap [Moles/Vol] 8.0 mmol/L Normal 6.0-15.0 [facility] Comment on above: Performed By: #### B MP, MG, CBC ####[facility] [id number] [place] [address] [facility] Calcium [Mass/Vol] 8.3 mg/dL Low 8.6-10.3 [facility] Comment on above: Performed By: #### B MP, MG, CBC ####[facility] [id number] [place] [address] [facility] Chloride [Moles/Vol] 105 mmol/L Normal 98-[address] [facility] Comment on above: Performed By: #### B MP, MG, CBC ####[facility] [id number] [place] [address] [facility] CO2 [Moles/Vol] 29.8 mmol/L Normal 21.0-31.0 [facility] Comment on above: Performed By: #### B MP, MG, CBC ####[place] [address] [place] [address] [facility] Creatinine [Mass/Vol] 0.86 mg/dL Normal 0.70-1.30 [facility] Comment on above: Performed By: #### B MP, MG, CBC ####[place] [address] [place] [address] [place] Creatinine Clr Calc Pharmacy 68.49 [facility] Comment on above: Performed By: #### B MP, MG, CBC ####[facility] [id number] [place] [address] [place] GFR/1.73 sq M.predicted MDRD (S/P/Bld) [Vol rate/Area] mL/min/{1.73_m2} [facility] Comment on above: Performed By: #### B MP, MG, CBC ####[facility] [id number] [place] [address] [place] Glucose [Mass/Vol] 152 mg/dL High 70-100 [facility] Comment on above: Result Comment: [facility] Glucose Reference Range is dependent on time and content of last meal. Glucose of more than 200 mg/dL in a nonstressed, ambulatory subject supports the diagnosis of Diabetes Mellitus. ADA recommended reference range Performed By: #### B MP, MG, CBC ####[facility] [place] [id number] [facility] Potassium [Moles/Vol] 3.8 mmol/L Normal 3.5-5.1 [facility] Comment on above: Performed By: #### B MP, MG, CBC ####[place] [address] Sodium [Moles/Vol] 139 mmol/L Normal 136-145 [facility] Comment on above: Performed By: #### B MP, MG, CBC ####[place] [address] Urea nitrogen [Mass/Vol] 16 mg/dL Normal 7-25 [facility] Comment on above: Performed By: #### B MP, MG, CBC ####[place] [address] [place] [id number] [facility] Complete Blood Count Auto Di ffon 09-15-2022 Basophils (Bld) [#/Vol] 0.0 10*3/uL Normal 0.0-0.2 [facility] Comment on above: Result Comment: PERF ORMED BY: [facility] [address] [place] [address] PATHOLOGIST AUDIOLOGY ASSISTANT KASSANDRA STACK M.D. Performed By: #### B MP, MG, CBC ####[place] [address] [place] [id number] [facility] Basophils/100 WBC (Bld) 0.3 % Normal . [facility] Comment on above: Performed By: #### B MP, MG, CBC ####[place] [id number] [facility] Eosinophils (Bld) [#/Vol] 0.0 10*3/uL Normal 0.0-0.45 [facility] Comment on above: Performed By: #### B MP, MG, CBC ####[place] [id number] [facility] Eosinophils/100 WBC (Bld) 0.5 % Normal . [facility] Comment on above: Performed By: #### B MP, MG, CBC ####[place] [id number] [facility] Erythrocyte distribution width (RBC) [Ratio] 13.6 % Normal 12.0-14.8 [facility] Comment on above: Performed By: #### B MP, MG, CBC ####[place] [id number] [facility] Hematocrit (Bld) [Volume fraction] 30.2 % Low 38.8-50.0 [facility] Comment on above: Performed By: #### B MP, MG, CBC ####[place] [id number] [facility] Hemoglobin (Bld) [Mass/Vol] 10.7 g/dL Low 13.0-17.0 [facility] Comment on above: Performed By: #### B MP, MG, CBC ####[place] [id number] [facility] Lymphocytes (Bld) [#/Vol] 3.9 10*3/uL Normal 1.00-4.8 [facility] Comment on above: Performed By: #### B MP, MG, CBC ####[place] [id number] [facility] Lymphocytes/100 WBC (Bld) 49.0 % Normal . [facility] Comment on above: Performed By: #### B MP, MG, CBC ####[place] [id number] [facility] MCH (RBC) [Entitic mass] 34.9 pg Normal 27.5-35.2 [facility] Comment on above: Performed By: #### B MP, MG, CBC ####[place] [id number] [facility] MCV (RBC) [Entitic vol] 98.7 fL Normal 83.5-101 [facility] Comment on above: Performed By: #### B MP, MG, CBC ####[address] Mean Corpuscular HGB Conc 35.3 g/dL Normal 32.5-35.6 [facility] Comment on above: Performed By: #### B MP, MG, CBC ####[address] Monocytes (Bld) [#/Vol] 0.4 10*3/uL Normal 0.0-0.8 [facility] Comment on above: Performed By: #### B MP, MG, CBC ####[address] Monocytes/100 WBC (Bld) 5.2 % Normal . [facility] Comment on above: Performed By: #### B MP, MG, CBC ####[address] Neutrophils (Bld) [#/Vol] 3.6 10*3/uL Normal 1.8-7.7 [facility] Comment on above: Performed By: #### B MP, MG, CBC ####[address] Neutrophils/100 WBC (Bld) 45.0 % Normal . [facility] Comment on above: Performed By: #### B MP, MG, CBC ####[address] NRBC% 0.4 /100{WBC} Normal 0-0.5 [facility] Comment on above: Performed By: #### B MP, MG, CBC ####[address] Platelet mean volume (Bld) [Entitic vol] 8.0 fL Normal 6.6-10.1 [facility] Comment on above: Performed By: #### B MP, MG, CBC ####[address] Platelets (Bld) [#/Vol] 158 10*3/uL Significant change down 150-450 [facility] Comment on above: Performed By: #### B MP, MG, CBC ####[facility] RBC (Bld) [#/Vol] 3.06 10*6/uL Low 3.90-5.60 [facility] Comment on above: Performed By: #### B MP, MG, CBC ####[facility] WBC (Bld) [#/Vol] 8.0 10*3/uL Normal 4.1-10.5 [facility] Comment on above: Performed By: #### B MP, MG, CBC ####[facility] ECG 12 lead ECGon 09-15-2022 ECG 12 lead ECG [facility] Main [place] [address] [place] [address] Electrocardiograph Report Signed Patient: Tadeo Thomas MR#: [id number] 0 : 1945 Acct:[id number] Age/Sex: 77 / M ADM Date: 09/14/22 Loc: Room: [address] [place] [address] Type: ADM IN Attending Dr: Charlie Varner MD Ordering Provider: Farshad Varela DO Date of Service: 09/15/2207/05/1108 ECG/ECG 12 lead ECG: rhythm change? Copies to: Test Reason : Blood Pressure : / mmHG Vent. Rate : 055 BPM Atrial Rate : 055 BPM P-R Int : 290 ms QRS Dur : 150 ms QT Int : 434 ms P-R-T Axes : 059 058 009 degrees QTc Int : 415 ms Sinus bradycardia with 1st degree AV block with premature atrial complexes Right bundle branch block Abnormal ECG When compared with ECG of 15-SEP-2022 11:18, (Unconfirmed) fusion complexes are no longer present premature ventricular complexes are no longer present Confirmed by MOUSTAPHA THAKKAR DO ([id number]) on 09/16/2022 9:06:56 AM Referred By: Electronically Signed By:MOUSTAPHA THAKKAR DO Transcribed By: MUS Signed By Moustapha Thakkar DO 09/16 0907 Normal [facility] Magnesiumon 09-15-2022 Magnesium [Mass/Vol] 1.5 mg/dL Low 1.9-2.[address] [facility] Comment on above: Result Comment: PERF ORMED BY: [facility] [address] [place] [id number] PATHOLOGIST AUDIOLOGY ASSISTANT KASSANDRA STACK M.D. Performed By: #### B MP, MG, CBC ####[address] [address] [facility] Magnesium [Mass/volume] in S estela or PlasmaOrdered By: Charlie Varner on 09-15-2022 Magnesium [Mass/Vol] 1.5 mg/dL 1.9-2.[address] [facility] A1C with Estimated Average G luon 09-14-2022 Glucose [Mass/Vol] 180 mg/dL Normal [facility] Comment on above: Result Comment: PERF ORMED BY: [facility] [address] [facility] [place] [address] PATHOLOGIST AUDIOLOGY ASSISTANT KASSANDRA STACK M.D. Performed By: #### A 1C [facility] eA ####[place] [id number] [facility] HbA1c (Bld) [Mass fraction] 7.9 % High 4.3-5.6 [facility] Comment on above: Result Comment: Incr eased risk for diabetes: 5.7 - 6.4 diabetes: >6.4 glycemic control for adults with diabetes: <7.0 Performed By: #### A 1C [facility] eA ####[address] [address] [facility] Activated partial thrombopla stin time (aPTT) in platelet poor plasma by coagulation aOrdered By: Uriah Wang on 09-14-2022 aPTT Coag (PPP) [Time] 31.4 s 25.1-36.5 [facility] Alanine aminotransferase [En zymatic activity/volume] in Serum or PlasmaOrdered By: Uriah Wang on 09-14-2022 ALT [Catalytic activity/Vol] 14 U/L 7-52 [facility] Albumin [Mass/volume] in Ser um or Plasma by Bromocresol green (BCG) dye binding methoOrdered By: Uriah Wang on 09-14-2022 Albumin BCG dye [Mass/Vol] 4.3 g/dL 3.5-5.7 [facility] Alkaline phosphatase [Enzyma tic activity/volume] in Serum or PlasmaOrdered By: Uriah Wang on 09-14-2022 ALP [Catalytic activity/Vol] 66 U/L 34-104 [facility] Aspartate aminotransferase [ Enzymatic activity/volume] in Serum or PlasmaOrdered By: Uriah Wang on 09-14-2022 AST [Catalytic activity/Vol] 15 U/L 13-39 [facility] B-Type Natriuretic Peptideon 09-14-2022 Natriuretic peptide B (Bld) [Mass/Vol] 239.0 pg/mL High 5-100 [facility] Comment on above: Result Comment: PERF ORMED BY: [facility] [address] [place] [address] PATHOLOGIST AUDIOLOGY ASSISTANT KASSANDRA STACK M.D. Performed By: #### C MP, PT, BNP, MG, CK, HS TROP, CBC, PTT ####[facility] Basophils Auto (Bld) [#/Vol] Ordered By: Uriah Wang on 09-14-2022 Basophils (Bld) [#/Vol] 0.0 10*3/uL 0.0-0.2 [facility] Basophils/100 WBC Auto (Bld) Ordered By: Uriah Wang on 09-14-2022 Basophils/100 WBC (Bld) 0.3 % . [facility] Bilirubin.total [Mass/volume ] in Serum or PlasmaOrdered By: Uriah Wang on 09-14-2022 Bilirubin [Mass/Vol] 0.4 mg/dL 0.3-1.[address] [facility] Calcium [Mass/volume] in Ser um or PlasmaOrdered By: Uriah Wang on 09-14-2022 Calcium [Mass/Vol] 9.3 mg/dL 8.6-10.3 [facility] Carbon dioxide, total [Moles /volume] in Serum or PlasmaOrdered By: Uriah Wang on 09-14-2022 CO2 [Moles/Vol] 27.6 mmol/L 21.0-31.0 [facility] Chloride [Moles/volume] in S estela or PlasmaOrdered By: Uriah Wang on 09-14-2022 Chloride [Moles/Vol] 103 mmol/L 98-[address] [facility] Complete Blood Count Auto Di ffon 09-14-2022 Basophils (Bld) [#/Vol] 0.0 10*3/uL Normal 0.0-0.2 [facility] Comment on above: Result Comment: PERF ORMED BY: [facility] [address] [place] [address] PATHOLOGIST AUDIOLOGY ASSISTANT KASSANDRA STACK M.D. Performed By: #### C MP, PT, BNP, MG, CK, HS TROP, CBC, PTT ####[address] Basophils/100 WBC (Bld) 0.3 % Normal . [facility] Comment on above: Performed By: #### C MP, PT, BNP, MG, CK, HS TROP, CBC, PTT ####[address] Eosinophils (Bld) [#/Vol] 0.1 10*3/uL Normal 0.0-0.45 [facility] Comment on above: Performed By: #### C MP, PT, BNP, MG, CK, HS TROP, CBC, PTT ####[address] Eosinophils/100 WBC (Bld) 0.5 % Normal . [facility] Comment on above: Performed By: #### C MP, PT, BNP, MG, CK, HS TROP, CBC, PTT ####[address] Erythrocyte distribution width (RBC) [Ratio] 14.0 % Normal 12.0-14.8 [facility] Comment on above: Performed By: #### C MP, PT, BNP, MG, CK, HS TROP, CBC, PTT ####[address] Hematocrit (Bld) [Volume fraction] 36.9 % Low 38.8-50.0 [facility] Comment on above: Performed By: #### C MP, PT, BNP, MG, CK, HS TROP, CBC, PTT ####[address] Hemoglobin (Bld) [Mass/Vol] 12.8 g/dL Low 13.0-17.0 [facility] Comment on above: Performed By: #### C MP, PT, BNP, MG, CK, HS TROP, CBC, PTT ####[address] Lymphocytes (Bld) [#/Vol] 4.2 10*3/uL Normal 1.00-4.8 [facility] Comment on above: Performed By: #### C MP, PT, BNP, MG, CK, HS TROP, CBC, PTT ####[address] Lymphocytes/100 WBC (Bld) 39.9 % Normal . [facility] Comment on above: Performed By: #### C MP, PT, BNP, MG, CK, HS TROP, CBC, PTT ####[address] MCH (RBC) [Entitic mass] 34.7 pg Normal 27.5-35.2 [facility] Comment on above: Performed By: #### C MP, PT, BNP, MG, CK, HS TROP, CBC, PTT ####[address] MCV (RBC) [Entitic vol] 100.0 fL Normal 83.5-101 [facility] Comment on above: Performed By: #### C MP, PT, BNP, MG, CK, HS TROP, CBC, PTT ####[address] Mean Corpuscular HGB Conc 34.7 g/dL Normal 32.5-35.6 [facility] Comment on above: Performed By: #### C MP, PT, BNP, MG, CK, HS TROP, CBC, PTT ####[address] Monocytes (Bld) [#/Vol] 0.5 10*3/uL Normal 0.0-0.8 [facility] Comment on above: Performed By: #### C MP, PT, BNP, MG, CK, HS TROP, CBC, PTT ####[address] Monocytes/100 WBC (Bld) 17.48 % Normal 0.00-20.00 [facility] Comment on above: Performed By: #### C MP, PT, BNP, MG, CK, HS TROP, CBC, PTT ####[address] Monocytes/100 WBC (Bld) 4.5 % Normal . [facility] Comment on above: Performed By: #### C MP, PT, BNP, MG, CK, HS TROP, CBC, PTT ####[address] Neutrophils (Bld) [#/Vol] 5.8 10*3/uL Normal 1.8-7.7 [facility] Comment on above: Performed By: #### C MP, PT, BNP, MG, CK, HS TROP, CBC, PTT ####[address] Neutrophils/100 WBC (Bld) 54.8 % Normal . [facility] Comment on above: Performed By: #### C MP, PT, BNP, MG, CK, HS TROP, CBC, PTT ####[address] NRBC% 0.2 /100{WBC} Normal 0-0.5 [facility] Comment on above: Performed By: #### C MP, PT, BNP, MG, CK, HS TROP, CBC, PTT ####[address] [place] [address] [place] Platelet mean volume (Bld) [Entitic vol] 8.2 fL Normal 6.6-10.1 [facility] Comment on above: Performed By: #### C MP, PT, BNP, MG, CK, HS TROP, CBC, PTT ####[address] Platelets (Bld) [#/Vol] 228 10*3/uL Normal 150-450 [facility] Comment on above: Performed By: #### C MP, PT, BNP, MG, CK, HS TROP, CBC, PTT ####[address] RBC (Bld) [#/Vol] 3.69 10*6/uL Low 3.90-5.60 [facility] Comment on above: Performed By: #### C MP, PT, BNP, MG, CK, HS TROP, CBC, PTT ####[address] WBC (Bld) [#/Vol] 10.6 10*3/uL High 4.1-10.5 [facility] Comment on above: Performed By: #### C MP, PT, BNP, MG, CK, HS TROP, CBC, PTT ####[address] Comprehensive Metabolic Pane christian 09-14-2022 Albumin [Mass/Vol] 4.3 g/dL Normal 3.5-5.7 [facility] Comment on above: Performed By: #### C MP, PT, BNP, MG, CK, HS TROP, CBC, PTT ####[address] Albumin/Globulin [Mass ratio] 1.4 {ratio} Normal [facility] Comment on above: Performed By: #### C MP, PT, BNP, MG, CK, HS TROP, CBC, PTT ####[address] ALP [Catalytic activity/Vol] 66 U/L Normal 34-104 [facility] Comment on above: Performed By: #### C MP, PT, BNP, MG, CK, HS TROP, CBC, PTT ####[address] ALT [Catalytic activity/Vol] 14 U/L Normal 7-52 [facility] Comment on above: Performed By: #### C MP, PT, BNP, MG, CK, HS TROP, CBC, PTT ####[address] Anion gap [Moles/Vol] 12.5 mmol/L Normal 6.0-15.0 [facility] Comment on above: Performed By: #### C MP, PT, BNP, MG, CK, HS TROP, CBC, PTT ####[address] AST [Catalytic activity/Vol] 15 U/L Normal 13-39 [facility] Comment on above: Performed By: #### C MP, PT, BNP, MG, CK, HS TROP, CBC, PTT ####[address] Bilirubin [Mass/Vol] 0.4 mg/dL Normal 0.3-1.[address] [facility] Comment on above: Performed By: #### C MP, PT, BNP, MG, CK, HS TROP, CBC, PTT ####[address] Calcium [Mass/Vol] 9.3 mg/dL Normal 8.6-10.3 [facility] Comment on above: Performed By: #### C MP, PT, BNP, MG, CK, HS TROP, CBC, PTT ####[address] Chloride [Moles/Vol] 103 mmol/L Normal 98-[address] [facility] Comment on above: Performed By: #### C MP, PT, BNP, MG, CK, HS TROP, CBC, PTT ####[address] CO2 [Moles/Vol] 27.6 mmol/L Normal 21.0-31.0 [facility] Comment on above: Performed By: #### C MP, PT, BNP, MG, CK, HS TROP, CBC, PTT ####[address] Creatinine [Mass/Vol] 1.05 mg/dL Normal 0.70-1.30 [facility] Comment on above: Performed By: #### C MP, PT, BNP, MG, CK, HS TROP, CBC, PTT ####[address] Creatinine Clr Calc Pharmacy 60.89 [facility] Comment on above: Performed By: #### C MP, PT, BNP, MG, CK, HS TROP, CBC, PTT ####[address] GFR/1.73 sq M.predicted MDRD (S/P/Bld) [Vol rate/Area] mL/min/{1.73_m2} [facility] Comment on above: Performed By: #### C MP, PT, BNP, MG, CK, HS TROP, CBC, PTT ####[address] Globulin (S) [Mass/Vol] 3.0 g/dL [facility] Comment on above: Performed By: #### C MP, PT, BNP, MG, CK, HS TROP, CBC, PTT ####[address] Glucose [Mass/Vol] 204 mg/dL High 70-100 [facility] Comment on above: Result Comment: [facility] Glucose Reference Range is dependent on time and content of last meal. Glucose of more than 200 mg/dL in a nonstressed, ambulatory subject supports the diagnosis of Diabetes Mellitus. ADA recommended reference range Performed By: #### C MP, PT, BNP, MG, CK, HS TROP, CBC, PTT ####[address] Potassium [Moles/Vol] 4.1 mmol/L Normal 3.5-5.1 [facility] Comment on above: Performed By: #### C MP, PT, BNP, MG, CK, HS TROP, CBC, PTT ####[place] [address] [address] Protein [Mass/Vol] 7.3 g/dL Normal 6.4-8.9 [facility] Comment on above: Performed By: #### C MP, PT, BNP, MG, CK, HS TROP, CBC, PTT ####[place] [id number] [facility] Sodium [Moles/Vol] 139 mmol/L Normal 136-145 [facility] Comment on above: Performed By: #### C MP, PT, BNP, MG, CK, HS TROP, CBC, PTT ####[place] [address] [address] Urea nitrogen [Mass/Vol] 23 mg/dL Normal 7-25 [facility] Comment on above: Performed By: #### C MP, PT, BNP, MG, CK, HS TROP, CBC, PTT ####[place] [address] [place] [id number] [facility] Creatine Kinaseon 09-14-2022 CK [Catalytic activity/Vol] 100 U/L Normal [facility] Comment on above: Performed By: #### C MP, PT, BNP, MG, CK, HS TROP, CBC, PTT ####[place] [id number] [facility] Creatine kinase [Enzymatic a ctivity/volume] in Serum or PlasmaOrdered By: Uriah Wang on 09-14-2022 CK [Catalytic activity/Vol] 100 U/L [facility] Creatinine [Mass/volume] in Serum or PlasmaOrdered By: Uriah Wang on 09-14-2022 Creatinine [Mass/Vol] 1.05 mg/dL 0.70-1.30 [facility] ECG 12 lead ECGon 09-14-2022 ECG 12 lead ECG [facility] Main [place] [address] [place] [address] Electrocardiograph Report Signed Patient: Tadeo Thomas MR#: [id number] 0 : 1945 Acct:[id number] Age/Sex: 77 / M ADM Date: 09/14/22 Loc: 3T Room: [address] [place] [address] Type: ADM IN Attending Dr: Charlie Varner MD Ordering Provider: Uriah Wang DO Date of Service: 09/14/2206/05/1811 ECG/ECG 12 lead ECG: Shortness of Breath/Dyspnea Copies to: Test Reason : Blood Pressure : 149/063 mmHG Vent. Rate : 079 BPM Atrial Rate : 062 BPM P-R Int : 000 ms QRS Dur : 134 ms QT Int : 386 ms P-R-T Axes : 000 030 -18 degrees QTc Int : 442 ms Atrial fibrillation with premature ventricular or aberrantly conducted complexes Nonspecific intraventricular block T wave abnormality, consider inferior ischemia Abnormal ECG When compared with ECG of 14-SEP-2022 17:06, (Unconfirmed) Atrial fibrillation has replaced Wide QRS tachycardia Vent. rate has decreased BY 71 BPM Confirmed by URIAH WANG DO ([id number]) on 09/15/2022 2:06:13 AM Referred By: Electronically Signed By:URIAH WANG DO Transcribed By: MUS Signed By Uriah Wang DO 09/15 0206 Normal [facility] ECG 12 lead ECG [facility] Main [address] [address] Electrocardiograph Report Signed Patient: Tadeo Thomas MR#: [id number] 0 : 1945 Acct:[id number] Age/Sex: 77 / M ADM Date: 09/14/22 Loc: Room: [address] [place] [address] Type: ADM IN Attending Dr: Charlie Varner MD Ordering Provider: Uriah Wang DO Date of Service: 09/14/2206/05/1707 ECG/ECG 12 lead ECG: Shortness of Breath/Dyspnea Copies to: Test Reason : Blood Pressure : / mmHG Vent. Rate : 150 BPM Atrial Rate : 072 BPM P-R Int : 000 ms QRS Dur : 150 ms QT Int : 332 ms P-R-T Axes : 000 101 019 degrees QTc Int : 524 ms Wide QRS tachycardia Right bundle branch block Abnormal ECG No previous ECGs available Confirmed by URIAH WANG DO ([id number]) on 09/15/2022 2:06:13 AM Referred By: Electronically Signed By:URIAH WANG DO Transcribed By: MUS Signed By Uriah Wang DO 09/15 0206 Normal [facility] Eosinophils Auto (Bld) [#/Vo l]Ordered By: Uriah Wang on 09-14-2022 Eosinophils (Bld) [#/Vol] 0.1 10*3/uL 0.0-0.45 [facility] Eosinophils/100 WBC Auto (Bl d)Ordered By: Uriah Wang on 09-14-2022 Eosinophils/100 WBC (Bld) 0.5 % . [facility] Erythrocyte distribution wid th Auto (RBC) [Ratio]Ordered By: Uriah Wang on 09-14-2022 Erythrocyte distribution width (RBC) [Ratio] 14.0 % 12.0-14.8 [facility] Globulin Calc (S) [Mass/Vol] Ordered By: Uriah Wang on 09-14-2022 Globulin (S) [Mass/Vol] 3.0 g/dL [facility] Glucose [Mass/volume] in Ser um or PlasmaOrdered By: Uriah Wang on 09-14-2022 Glucose [Mass/Vol] 204 mg/dL 70-100 [facility] Comment on above: ADA recommended refe rence rangeRandom Glucose Reference Range is dependent on time and content of last meal. Glucose of more than 200 mg/dL in a nonstressed, ambulatory subject supports the diagnosis of Diabetes Mellitus. Glucose mean value [Mass/vol ume] in Blood Estimated from glycated hemoglobinOrdered By: Charlie Varner on 09-14-2022 Average glucose Estimated from glycated hemoglobin (Bld) [Mass/Vol] 180 mg/dL [facility] Hematocrit Auto (Bld) [Volum e fraction]Ordered By: Uriah Wang on 09-14-2022 Hematocrit (Bld) [Volume fraction] 36.9 % 38.8-50.0 [facility] Hemoglobin A1c percentageOrd ered By: Charlie Varner on 09-14-2022 HbA1c (Bld) [Mass fraction] 7.9 % 4.3-5.6 [facility] Comment on above: Increased risk for d iabetes: 5.7 - 6.4diabetes: >6.4glycemic control for adults with diabetes: <7.0 Hemoglobin [Mass/volume] in BloodOrdered By: Uriah Wnag on 09-14-2022 Hemoglobin (Bld) [Mass/Vol] 12.8 g/dL 13.0-17.0 [facility] Laboratory - CoagulationOrde red By: Uriah Wang on 09-14-2022 PT Coag (PPP) [Time] 11.5 s 9.0-12.[address] [facility] Leukocytes [#/volume] correc ale for nucleated erythrocytes in Blood by Automated counOrdered By: Uriha Wang on 09-14-2022 WBC corrected for nucl RBC Auto (Bld) [#/Vol] 10.6 10*3/uL 4.1-10.5 [facility] Lymphocytes Auto (Bld) [#/Vo l]Ordered By: Uriah Wang on 09-14-2022 Lymphocytes (Bld) [#/Vol] 4.2 10*3/uL 1.00-4.8 [facility] Lymphocytes/100 WBC Auto (Bl d)Ordered By: Uriah Wang on 09-14-2022 Lymphocytes/100 WBC (Bld) 39.9 % . [facility] MCH Auto (RBC) [Entitic mass ]Ordered By: Uriah Wang on 09-14-2022 MCH (RBC) [Entitic mass] 34.7 pg 27.5-35.2 [facility] MCHC Auto (RBC) [Mass/Vol]Or dered By: Uriah Wang on 09-14-2022 MCHC (RBC) [Mass/Vol] 34.7 g/dL 32.5-35.6 [facility] MCV Auto (RBC) [Entitic vol] Ordered By: Uriah Wang on 09-14-2022 MCV (RBC) [Entitic vol] 100.0 fL 83.5-101 [facility] Magnesiumon 09-14-2022 Magnesium [Mass/Vol] 1.4 mg/dL Low 1.9-2.[address] [facility] Comment on above: Result Comment: PERF ORMED BY: [facility] [address] [place] [address] PATHOLOGIST AUDIOLOGY ASSISTANT KASSANDRA STACK M.D. Performed By: #### C MP, PT, BNP, MG, CK, HS TROP, CBC, PTT ####[facility] [id number] [address] [facility] Magnesium [Mass/volume] in S estela or PlasmaOrdered By: Uriah Wang on 09-14-2022 Magnesium [Mass/Vol] 1.4 mg/dL 1.9-2.[address] [facility] Monocyte distribution width [Entitic volume] in Blood by AutomatedOrdered By: Uriah Wang on 09-14-2022 Monocyte distribution width Auto (Bld) [Entitic vol] 17.48 % 0.00-20.00 [facility] Monocytes Auto (Bld) [#/Vol] Ordered By: Uriah Wang on 09-14-2022 Monocytes (Bld) [#/Vol] 0.5 10*3/uL 0.0-0.8 [facility] Monocytes/100 WBC Auto (Bld) Ordered By: Uriah Wang on 09-14-2022 Monocytes/100 WBC (Bld) 4.5 % . [facility] Natriuretic peptide B [Mass/ Vol]Ordered By: Uriah Wang on 09-14-2022 Natriuretic peptide B (Bld) [Mass/Vol] 239.0 pg/mL 5-100 [facility] Neutrophils Auto (Bld) [#/Vo l]Ordered By: Uriah Wang on 09-14-2022 Neutrophils (Bld) [#/Vol] 5.8 10*3/uL 1.8-7.7 [facility] Neutrophils/100 WBC Auto (Bl d)Ordered By: Uriah Wang on 09-14-2022 Neutrophils/100 WBC (Bld) 54.8 % . [facility] No Panel InformationOrdered By: Uriah Wang on 09-14-2022 Estimated GFR (CKD-EPI) > 60.0 mL/Min [facility] Pharmacy Creatinine Clearance (Chem 60.89 [facility] Nucleated erythrocytes [Pres ence] in Blood by Automated countOrdered By: Uriah Wang on 09-14-2022 Nucleated RBC Auto Ql (Bld) 0.2 /100{WBC} 0-0.5 [facility] Partial Thromboplastin Timeo n 09-14-2022 aPTT Coag (Bld) [Time] 31.4 s Normal 25.1-36.5 [facility] Comment on above: Result Comment: PERF ORMED BY: [facility] [address] [place] [address] PATHOLOGIST AUDIOLOGY ASSISTANT KASSANDRA STACK M.D. Performed By: #### C MP, PT, BNP, MG, CK, HS TROP, CBC, PTT ####[facility] [id number] [place] [address] [facility] Platelet mean volume Auto (B ld) [Entitic vol]Ordered By: Uriah Wang on 09-14-2022 Platelet mean volume (Bld) [Entitic vol] 8.2 fL 6.6-10.1 [facility] Platelet poor plasma interna tional normalized ratio (INR) by coagulation assay (relatOrdered By: Uriah Wang on 09-14-2022 INR Coag (PPP) [Relative time] 1.0 {INR} [facility] Comment on above: INR Therapeutic Rang e A) Pre- and Peroperative OAT started two weeks before surgery. NOT HIP SURGERY: 1.5 - 2.5 HIP SURGERY: 2 - 3B) Primary and secondary prevention of venous THROMBOSIS: 2 - 3C) Active venous thrombosis, pulmonary embolismand prevention of recurrent venous thrombosis: 2 - 3D) Prevention of arterial thromboembolismincluding patients with mechanical heart valves: 3 - 4.5 Platelets Auto (Bld) [#/Vol] Ordered By: Uriah Wang on 09-14-2022 Platelets (Bld) [#/Vol] 228 10*3/uL 150-450 [facility] Potassium [Moles/volume] in Serum or PlasmaOrdered By: Uriah Wang on 09-14-2022 Potassium [Moles/Vol] 4.1 mmol/L 3.5-5.1 [facility] Protein [Mass/volume] in Ser um or PlasmaOrdered By: Uriah Wang on 09-14-2022 Protein [Mass/Vol] 7.3 g/dL 6.4-8.9 [facility] Prothrombin Time INRon 09-14 INR Coag (PPP) [Relative time] 1.0 {INR} Normal [facility] Comment on above: Result Comment: INR Therapeutic Range A) Pre- and Peroperative OAT started two weeks before surgery. NOT HIP SURGERY: 1.5 - 2.5 HIP SURGERY: 2 - 3 B) Primary and secondary prevention of venous THROMBOSIS: 2 - 3 C) Active venous thrombosis, pulmonary embolism and prevention of recurrent venous thrombosis: 2 - 3 D) Prevention of arterial thromboembolism including patients with mechanical heart valves: 3 - 4.5 Performed By: #### C MP, PT, BNP, MG, CK, HS TROP, CBC, PTT ####[facility] PT Coag (PPP) [Time] 11.5 s Normal 9.0-12.[address] [facility] Comment on above: Performed By: #### C MP, PT, BNP, MG, CK, HS TROP, CBC, PTT ####[facility] Boe[address] RBC Auto (Bld) [#/Vol]Ordere d By: Uriah Wang on 09-14-2022 RBC (Bld) [#/Vol] 3.69 10*6/uL 3.90-5.60 [facility] Serum or plasma albumin/glob ulin mass ratioOrdered By: Uriah Wang on 09-14-2022 Albumin/Globulin [Mass ratio] 1.4 {ratio} [facility] Serum or plasma anion gap de terminationOrdered By: Uriah Wang on 09-14-2022 Anion gap [Moles/Vol] 12.5 mmol/L 6.0-15.0 [facility] Sodium [Moles/volume] in Ser um or PlasmaOrdered By: Uriah Wang on 09-14-2022 Sodium [Moles/Vol] 139 mmol/L 136-145 [facility] Troponin I High Sensitivityo n 09-14-2022 Troponin I High Sensitivity 14.5 pg/mL Normal 0.0-20.0 [facility] Comment on above: Result Comment: PERF ORMED BY: [place] [address] PATHOLOGIST AUDIOLOGY ASSISTANT KASSANDRA STACK M.D. Performed By: #### C MP, PT, BNP, MG, CK, HS TROP, CBC, PTT ####[facility] Bla[address] Troponin I.cardiac [Mass/vol ume] in Serum or Plasma by Detection limit <= 0.01 ng/Ordered By: Uriah Wang on 09-14-2022 Troponin I.cardiac DL <= 0.01 ng/mL [Mass/Vol] 14.5 pg/mL 0.0-20.0 [facility] Urea nitrogen [Mass/volume] in Serum or PlasmaOrdered By: Uriah Wang on 09-14-2022 Urea nitrogen [Mass/Vol] 23 mg/dL 7-25 [facility] WBC Auto (Bld) [#/Vol]Ordere d By: Uriah Wang on 09-14-2022 WBC (Bld) [#/Vol] 10.6 10*3/uL 4.1-10.5 [facility] XR chest 1V portableon 09-14 XR chest 1V portable [facility] [place] [address] XRay Report Signed Patient: Tadeo Thomas MR#: [id number] 0 : 1945 Acct:[id number] Age/Sex: 77 / M ADM Date: 09/14/22 Loc: ER Room: Type: PRE ER Attending Dr: Copies to: Uriah Wang DO Ordering Provider: Uriah Wang DO Date of Service: 09/14/22 XR/XR chest 1V portable: Shortness of Breath/Dyspnea PORTABLE AP ERECT CHEST 1718 hours CLINICAL HISTORY: Generalized weakness, shortness of breath, hypotension and SVT COMPARISON: 08/08/2013 Patient is slightly rotated. The heart is within normal limits. There is no vascular congestion. Granulomatous changes are seen on the right. No consolidation is identified. There is no effusion or pneumothorax. The osseous structures are intact. There is endplate spurring at the spine. XR/XR chest 1V portable IMPRESSION: NO ACUTE FINDINGS Impression dictated by: Germaine Storey M.D.09/14/2022 5:42 PM Dictation Location: [place] [address] Transcribed By: [facility] 09/14/221741 Dictated By: Germaine Storey MD 09/14/221739 Signed By: 09/14/221741 [facility] echo transthoracicon [facility] echo transthoracic [facility] Main [place] [address] [place] [address] Echocardiogram Signed Patient: Tadeo Thomas MR#: [id number] 0 : 1945 Acct:[id number] Age/Sex: 77 / M ADM Date: 09/11/22 Loc: Room: Type: [facility] Attending Dr: Aracelis Pedroza MD Ordering Provider: Aracelis Pedroza MD Date of Service: 09/11/22/ [facility] echo transthoracic: ABNORMAL EKG Copies to: Fior Saleem MD, [facility] Aracelis Pedroza MD BSA: 2.0 m2 BP: 121/72 mmHg HR: 54 Reason For Study: ABNORMAL EKG History: HTN, HLD, DM Interpretation Summary Mild concentric left ventricular hypertrophy. The LV ejection fraction is 55 %. A variety of Doppler measurements indicate impaired left ventricular relaxation, which is associated with grade I/IV or mild diastolic dysfunction. The aortic root is 4.2 cm There is no prior echocardiogram noted for this patient. Procedure/Quality: A two-dimensional transthoracic echocardiogram with color flow and Doppler was performed. The study was technically good in quality. There is no prior echocardiogram noted for this patient. Left Ventricle: Mild concentric left ventricular hypertrophy. Left ventricular systolic function is normal. The LV ejection fraction is 55 %. A variety of Doppler measurements indicate impaired left ventricular relaxation, which is associated with grade I/IV or mild diastolic dysfunction. Left Atrium: The left atrium appears normal in size. The atrial septum appears normal. Right Atrium: The right atrium appears normal in size. Right Ventricle: The right ventricular size, thickness and function are normal. Aortic Valve: The aortic valve is mildly sclerotic. The aortic valve is trileaflet. Trace aortic regurgitation. Mitral Valve: The mitral valve is mildly sclerotic. There is trace mitral regurgitation. Tricuspid Valve: The tricuspid valve is normal. There is trace tricuspid regurgitation. Pulmonic Valve: The pulmonic valve is not well seen, but is grossly normal. Trace pulmonic valvular regurgitation. Arteries: Mild aortic root dilatation. The aortic root is 4.2 cm. Pericardium/Pleura: No pericardial effusion seen. There is no pleural effusion. IVC/Hepatic Viens: The IVC is normal in size with an inspiratory collapse of greater then 50%, suggesting normal right atrial pressure. Miscellaneous: No thrombus, vegetation or mass is seen. Measurements with Normals IVSd: 1.3 cm (0.7-1.1 cm)LVIDd: 5.3 cm (3.7-5.4 cm) LVPWd: 1.2 cm (0.7-1.1 cm)LVIDs: 3.6 cm (2.3-3.6 cm) LA dimension: 3.7 cm (2.3-4.0 cm)Ao root diam: 4.4 cm(2.0-3.6 cm) asc Aorta Diam: 4.2 cm(2.1-3.4cm) Doppler with Normals MV E max chidi: 60.0 cm/sec (0.8-1.3m/s) MV A max chidi: 107.5 cm/sec(0.0-0.0m/s) MV E/A: 0.56 (<1.5) MMode/2D Measurements Calculations RVDd: 3.7 cm FS: 33.2 % Ao root area: LVOT diam: 2.3 cm TAPSE: 1.8 cm EDV(Teich): 15.4 cm2 LVOT area: 4.2 cm2 RV S Chidi: 136.9 ml 10.6 cm/sec ESV(Teich): 53.0 ml EF(Teich): 61.3 % __ LVLd ap4: 7.1 cm SV(MOD-sp4): LAV(MOD-sp4): LA A2 area: 17.5 cm2 EDV(MOD-sp4): 43.6 ml 22.0 ml 75.0 ml LAV(MOD-sp2): LA A4 area: 11.1 cm2 LVLs ap4: 5.8 cm 49.8 ml LA length (vol): ESV(MOD-sp4): 4.9 cm 31.4 ml LA vol: 33.6 ml EF(MOD-sp4): 58.1 % LA vol index: 17.1 ml/m2 Doppler Measurements Calculations MV max PG: E/E' lat: 11.3 AI max chidi: MR max chidi: 39.0 mmHg E/E' med: 10.6 409.5 cm/sec 311.3 cm/sec AI max P.3 mmHg MR max PG: AI dec slope: 39.8 mmHg 120.4 cm/sec2 AI P1/2t: 995.8 msec __ TV max PG: TR max chidi: 26.0 mmHg 255.2 cm/sec TR max P.0 mmHg Transcribed By: SCV Performed At: 09/11/22919 Signed By: Fior Saleem MD, [facility] 09/11/22 1449 [facility] Auth for Release of Medical Recordson 05-12-2021 Auth for Release of Medical Records [id number] Normal [facility] Complete Blood Counton 04-21 Erythrocyte distribution width (RBC) [Ratio] 13.1 % Normal 11.0-15.0 [facility] Comment on above: Performed By: #### L IPD, CBC, FERR, CMP, FE Prof #### [facility] [address] [place], [place] [id number] Hematocrit (Bld) [Volume fraction] 38.9 % Normal 38.5-50.0 [facility] Comment on above: Performed By: #### L IPD, CBC, FERR, CMP, FE Prof #### [facility] [address] [place], [place] [id number] Hemoglobin (Bld) [Mass/Vol] 13.3 g/dL Normal 13.0-17.1 [facility] Specialist Comment on above: Performed By: #### L IPD, CBC, FERR, CMP, FE Prof #### [facility] [address] [place], [place] [id number] MCH (RBC) [Entitic mass] 34.5 pg High 27.0-33.0 [facility] Specialist Comment on above: Performed By: #### L IPD, CBC, FERR, CMP, FE Prof #### [facility] [address] [place], [place] [id number] MCHC (RBC) [Mass/Vol] 34.2 g/dL Normal 32.0-36.0 [facility] Comment on above: Performed By: #### L IPD, CBC, FERR, CMP, FE Prof #### [facility] [address] [place], [place] [id number] MCV (RBC) [Entitic vol] 101 fL High 80-100 [facility] Specialist Comment on above: Performed By: #### L IPD, CBC, FERR, CMP, FE Prof #### [facility] [address] [place], [place] [id number] Platelet mean volume (Bld) [Entitic vol] 10.00 fL Normal 7.50-12.50 [facility] Specialist Comment on above: Performed By: #### L IPD, CBC, FERR, CMP, FE Prof #### [facility] [address] [place], [place] [id number] Platelets (Bld) [#/Vol] 183 10*3/uL Normal 140-400 [facility] Specialist Comment on above: Performed By: #### L IPD, CBC, FERR, CMP, FE Prof #### [facility] [address] [place], [place] [id number] RBC (Bld) [#/Vol] 3.86 10*6/uL Low 4.20-5.80 [facility] Comment on above: Performed By: #### L IPD, CBC, FERR, CMP, FE Prof #### [facility] [address] [place], [place] [id number] RDW-SD 48.6 fL Normal 37.0-50.0 [place] [facility] Comment on above: Performed By: #### L IPD, CBC, FERR, CMP, FE Prof #### [facility] [address] [place], [place] [id number] WBC (Bld) [#/Vol] 8.9 10*3/uL Normal 3.8-11.0 Elsie dominguez [place] [facility] Comment on above: Performed By: #### L IPD, CBC, FERR, CMP, FE Prof #### [facility] [address] [place], [place] [id number] Comprehensive Metabolic Pane christian 04-21-2021 Albumin [Mass/Vol] 4.3 g/dL Normal 3.6-5.1 Elsie dominguez [place] [facility] Comment on above: Performed By: #### L IPD, CBC, FERR, CMP, FE Prof #### [facility] [address] [place], [place] [id number] Albumin/Globulin [Mass ratio] 2.2 {ratio} Normal 1.0-2.5 [facility] Comment on above: Performed By: #### L IPD, CBC, FERR, CMP, FE Prof #### [facility] [address] [place], [place] [id number] ALP [Catalytic activity/Vol] 89 U/L Normal 40-129 [facility] Comment on above: Performed By: #### L IPD, CBC, FERR, CMP, FE Prof #### [facility] [address] [place], [place] [id number] ALT [Catalytic activity/Vol] 19 U/L Normal 9-46 [facility] Comment on above: Result Comment: 02/12 Female reference range changed. Performed By: #### L IPD, CBC, FERR, CMP, FE Prof #### [facility] [address] [place], [place] [id number] Anion gap [Moles/Vol] 18 mmol/L Normal 12-20 [facility] Specialist Comment on above: Result Comment: Effe ctive 03/20/2019 reference range changed. Performed By: #### L IPD, CBC, FERR, CMP, FE Prof #### [facility] [address] [place], [place] [id number] AST [Catalytic activity/Vol] 19 U/L Normal 10-40 [facility] [place] [facility] Comment on above: Performed By: #### L IPD, CBC, FERR, CMP, FE Prof #### [facility] [address] [place], [place] [id number] Bilirubin [Mass/Vol] 0.32 mg/dL Normal 0.30-1.20 [facility] Comment on above: Performed By: #### L IPD, CBC, FERR, CMP, FE Prof #### [facility] [address] [place], [place] [id number] BUN/CREA 17 Ratio Normal 6-22 [facility] Comment on above: Performed By: #### L IPD, CBC, FERR, CMP, FE Prof #### [facility] [address] [place], [place] [id number] Calcium [Mass/Vol] 9.3 mg/dL Normal 8.6-10.2 [facility] Comment on above: Performed By: #### L IPD, CBC, FERR, CMP, FE Prof #### [facility] [address] [place], [place] [id number] Chloride [Moles/Vol] 104 mmol/L Normal 98-107 [facility] Comment on above: Performed By: #### L IPD, CBC, FERR, CMP, FE Prof #### [facility] [address] [place], [place] [id number] CO2 [Moles/Vol] 26 mmol/L Normal 20-31 [facility] Comment on above: Performed By: #### L IPD, CBC, FERR, CMP, FE Prof #### [facility] [address] [place], [place] [id number] Creatinine [Mass/Vol] 0.8 mg/dL Normal 0.7-1.4 [facility] Comment on above: Performed By: #### L IPD, CBC, FERR, CMP, FE Prof #### [facility] [address] [place], [place] [id number] eGFRAA 122 mL/min/1.73m2 Normal >60 [facility] Specialist Comment on above: Performed By: #### L IPD, CBC, FERR, CMP, FE Prof #### [facility] [address] [place], [place] [id number] eGFRNAA 101 mL/min/1.73m2 Normal >60 Salvador almonte [place] [facility] Comment on above: Performed By: #### L IPD, CBC, FERR, CMP, FE Prof #### [facility] [address] [place], [place] [id number] Globulin (S) [Mass/Vol] 2.0 g/dL Normal 1.9-3.7 [facility] Comment on above: Performed By: #### L IPD, CBC, FERR, CMP, FE Prof #### [facility] [address] [place], [place] [id number] Glucose [Mass/Vol] 173 mg/dL High 65-99 Elsie dominguez [place] [facility] Comment on above: Result Comment: For FASTING Glucose --- ADA reference ranges: Normal 65-99 mg/dl Prediabetes 100-125 Diabetes >/= 126 Performed By: #### L IPD, CBC, FERR, CMP, FE Prof #### [facility] [address] [place], [place] [id number] Potassium [Moles/Vol] 4.3 mmol/L Normal 3.5-5.5 [facility] Comment on above: Performed By: #### L IPD, CBC, FERR, CMP, FE Prof #### [facility] [address] [place], [place] [id number] Protein [Mass/Vol] 6.3 g/dL Normal 6.1-8.1 Elsie dominguez [place] [facility] Comment on above: Performed By: #### L IPD, CBC, FERR, CMP, FE Prof #### [facility] [address] [place], [place] [id number] Sodium [Moles/Vol] 143 mmol/L Normal 135-146 Thomas florence [place] Safety [facility] Comment on above: Performed By: #### L IPD, CBC, FERR, CMP, FE Prof #### [facility] [address] [place], [place] [id number] Urea nitrogen [Mass/Vol] 13 mg/dL Normal 7-25 [facility] Comment on above: Performed By: #### L IPD, CBC, FERR, CMP, FE Prof #### [facility] [address] [place], [place] [id number] Ferritinon 04-21-2021 FERR 80.7 ng/mL Normal 30.0-400.0 [facility] Specialist Comment on above: Performed By: #### L IPD, CBC, FERR, CMP, FE Prof #### [facility] [address] [place], [place] [id number] Hemoglobin A1Con 04-21-2021 EAG 180.03 Normal [facility] Specialist Comment on above: Performed By: #### A 1C #### [facility] [address] [place], [place] [id number] HbA1c (Bld) [Mass fraction] 7.9 % High 4.0-6.0 [facility] Comment on above: Performed By: #### A 1C #### [facility] [address] [place], [place] [id number] Iron Profileon 04-21-2021 %FESAT 34 % Normal 15-60 [facility] Specialist Comment on above: Performed By: #### L IPD, CBC, FERR, CMP, FE Prof #### [facility] [address] [place], [place] [id number] FE 113 ug/dL Normal 50-180 [facility] Comment on above: Result Comment: Refe rence range change 01/29/2017. Prior reference range F 37-145 ug/dL, M 59-158 ug/dL. Performed By: #### L IPD, CBC, FERR, CMP, FE Prof #### [facility] [address] [place], [place] [id number] TIBC 332 ug/dL Normal 250-425 [facility] Specialist Comment on above: Performed By: #### L IPD, CBC, FERR, CMP, FE Prof #### [facility] [address] [place], [place] [id number] UIBC 219 ug/dL Normal 112-347 [facility] Safety [facility] Comment on above: Performed By: #### L IPD, CBC, FERR, CMP, FE Prof #### [facility] [address] [place], [place] [id number] Lipid Panelon 04-21-2021 Cholesterol [Mass/Vol] 143 mg/dL Normal 125-200 [facility] Comment on above: Result Comment: Low risk < 200mg/dL Borderline risk 201-239 mg/dl High risk > or equal to 240 Performed By: #### L IPD, CBC, FERR, CMP, FE Prof #### [facility] [address] [place], [place] [id number] Cholesterol in HDL [Mass/Vol] 50 mg/dL Normal >40 [facility] Specialist Comment on above: Result Comment: High Cardiovascular Risk HDL <40 mg/dL Low Cardiovascular Risk HDL > or equal to 60 mg/dl Performed By: #### L IPD, CBC, FERR, CMP, FE Prof #### [facility] [address] [place], [place] [id number] Cholesterol in LDL [Mass/Vol] 78 mg/dL Normal [facility] Specialist Comment on above: Result Comment: LDL ATP III CLASSIFICATION LDL less than 100 mg/dl Optimal LDL 100-129 mg/dl Near or above optimal LDL 130-159 Borderline high LDL 160-189 High LDL greater than 189 mg/dl Very High Performed By: #### L IPD, CBC, FERR, CMP, FE Prof #### [facility] [address] [place], [place] [id number] Cholesterol in VLDL [Mass/Vol] 15 mg/dL Normal [facility] Specialist Comment on above: Performed By: #### L IPD, CBC, FERR, CMP, FE Prof #### [facility] [address] [place], [place] [id number] Cholesterol.total/Chol esterol in HDL [Mass ratio] 3 {ratio} Normal [facility] Specialist Comment on above: Performed By: #### L IPD, CBC, FERR, CMP, FE Prof #### [facility] [address] [place], [place] [id number] Triglyceride [Mass/Vol] 73 mg/dL Normal 30-150 [facility] Specialist Comment on above: Result Comment: TRIG ATPIII CLASSIFICATIONS TRIG less than 150 mg/dl Normal TRIG 150-199 mg/dl Borderline High TRIG 200-500 mg/dl High TRIG greather than 500 mg/dl Very High Performed By: #### L IPD, CBC, FERR, CMP, FE Prof #### [facility] [address] [place], [place] [id number] Vitamin B12on 04-21-2021 Cobalamin (Vitamin B12) [Mass/Vol] 369 pg/mL Normal 211-946 [facility] Specialist Comment on above: Performed By: #### B 12 #### [facility] [address] [place], [place] [id number] MRI Brain w/o + w/on MRI Brain w/o + w/ HISTORY: Dizziness. Unsteady gait. TECHNIQUE: Routine brain MRI protocol without and with contrast including diffusion images. CONTRAST: 18 mL gadolinium (Prohance) injection COMPARISON: MRA 02/14/2021 RESULT: Acute Change: There is no evidence of restricted diffusion to suggest an acute infarct. Hemorrhage: No evidence of prior parenchymal hemorrhage. Mass Lesion/ Mass Effect: No evidence of an intracranial mass or extra-axial fluid collection. No abnormal parenchymal or leptomeningeal enhancement following contrast administration. No significant mass effect. Chronic Change/parenchyma: Moderate patchy and confluent foci in the supratentorial white matter nonspecific but likely secondary to chronic microvascular ischemic changes. Areas of remote lacunar infarcts and/or dilated perivascular spaces, especially involving the bilateral basal ganglia and centrum semiovale, and romie. Mild generalized volume loss for age. Ventricles: Size corresponds with the volume loss. Skull Base: Hypothalamic and pituitary region are grossly normal. Craniocervical junction is normal. No significant marrow replacement process. Vasculature: Major intracranial arterial structures, and dural venous sinuses show typical flow void, suggesting patency. Other: The visualized paranasal sinuses with minimal mucosal thickening. Mastoid air cells are clear. Right-sided lens replacement surgery. Orbits otherwise unremarkable. Soft tissues unremarkable. IMPRESSION: No acute intracranial process or suspicious enhancement. Chronic appearing changes as discussed. Report reported and signed by Chaim Goodrich on 02/25/2021 1101 Normal [facility] Safety Aide Basic Metabolic Panelon 12-0 Anion gap [Moles/Vol] 18 mmol/L Normal 12-20 Louie mendoza [place] Safety [facility] Comment on above: Result Comment: Effalanna ctive 03/20/2019 reference range changed. Performed By: #### B MP #### [facility] [address] [place], [place] [id number] Calcium [Mass/Vol] 9.5 mg/dL Normal 8.6-10.2 Elsie [facility] Safety Aide Comment on above: Performed By: #### B MP #### [facility] [address] [place], [place] [id number] Chloride [Moles/Vol] 101 mmol/L Normal 98-107 [facility] Comment on above: Performed By: #### B MP #### [facility] [address] [place], [place] [id number] CO2 [Moles/Vol] 26 mmol/L Normal 20-31 [facility] Comment on above: Performed By: #### B MP #### [facility] [address] [facility] [place] [id number] Creatinine [Mass/Vol] 0.7 mg/dL Normal 0.7-1.4 [facility] Comment on above: Performed By: #### B MP #### [facility] [address] [place], [place] [id number] eGFRAA 128 mL/min/1.73m2 Normal >60 [facility] Comment on above: Performed By: #### B MP #### [facility] [address] [place], [place] [id number] eGFRNAA 106 mL/min/1.73m2 Normal >60 [facility] Comment on above: Performed By: #### B MP #### [facility] [address] [place], [place] [id number] Glucose [Mass/Vol] 196 mg/dL High 65-99 [facility] Specialist Comment on above: Result Comment: For FASTING Glucose --- ADA reference ranges: Normal 65-99 mg/dl Prediabetes 100-125 Diabetes >/= 126 Performed By: #### B MP #### [facility] [address] [place], [place] [id number] Potassium [Moles/Vol] 4.2 mmol/L Normal 3.5-5.5 [facility] Comment on above: Performed By: #### B MP #### [facility] [address] [facility] [place] [id number] Sodium [Moles/Vol] 141 mmol/L Normal 135-146 [facility] Specialist Comment on above: Performed By: #### B MP #### [facility] [address] [facility] [place] [id number] Urea nitrogen [Mass/Vol] 13 mg/dL Normal 7-25 [facility] Specialist Comment on above: Performed By: #### B MP #### [facility] [address] [place], [place] [id number] Vital Signs Date Time Vital Sign Value Performing Clinician Facility 03-01-2023 09:33-0500 Body height 170.2 cm Ketan Lucero MD Work Phone: [facility] 03-01-2023 09:33-0500 Body mass index (BMI) [Ratio] 23.96 kg/m2 Ketan Lucero MD Work Phone: [facility] 03-01-2023 09:33-0500 Body weight 69.4 kg Ketan Lucero MD Work Phone: [facility] 03-01-2023 09:33-0500 Diastolic blood pressure 50 mm[Hg] Ketan Lucero MD Work Phone: [facility] 03-01-2023 09:33-0500 Heart rate 62 /min Ketan Lucero MD Work Phone: [facility] 03-01-2023 09:33-0500 Systolic blood pressure 90 mm[Hg] Ketan Lucero MD Work Phone: [facility] 02-11-2023 14:06-0500 Body temperature 97.3 [degF] MD Aracelis Pedroza Work Phone: [facility] 02-11-2023 14:06-0500 Diastolic blood pressure 68 mm[Hg] MD Aracelis Pedroza Work Phone: [facility] 02-11-2023 14:06-0500 Heart rate 84 /min MD Aracelis Pedroza Work Phone: [facility] 02-11-2023 14:06-0500 Respiratory rate 18 /min MD Aracelis Pedroza Work Phone: [facility] 02-11-2023 14:06-0500 SaO2% (BldA) [Mass fraction] 97 % MD Aracelis Pedroza Work Phone: [facility] 02-11-2023 14:06-0500 Systolic blood pressure 122 mm[Hg] MD Aracelis Pedroza Work Phone: [facility] 02-11-2023 05:16-0500 Body weight 69 kg MD Aracelis Pedroza Work Phone: [facility] 02-10-2023 16:33-0500 Body height 172.72 cm MD Aracelis Pedroza Work Phone: [facility] 02-02-2023 14:19-0500 Diastolic blood pressure 73 mm[Hg] MD Aracelis Pedroza Work Phone: [facility] 02-02-2023 14:19-0500 Heart rate 78 /min MD Aracelis Pedroza Work Phone: [facility] 02-02-2023 14:19-0500 Respiratory rate 18 /min MD Aracelis Pedroza Work Phone: [facility] 02-02-2023 14:19-0500 SaO2% (BldA) [Mass fraction] 99 % MD Aracelis Pedroza Work Phone: [facility] 02-02-2023 14:19-0500 Systolic blood pressure 119 mm[Hg] MD Aracelis Pedroza Work Phone: [facility] 02-02-2023 11:50-0500 Body height 193.04 cm MD Aracelis Pedroza Work Phone: [facility] 02-02-2023 11:50-0500 Body temperature 98.1 [degF] MD Aracelis Pedroza Work Phone: [facility] 02-02-2023 11:50-0500 Body weight 74.1 kg MD Aracelis Pedroza Work Phone: [facility] 01-07-2023 11:15-0400 Body height 170.2 cm Ketan Lucero MD Work Phone: [facility] 01-07-2023 11:15-0400 Body mass index (BMI) [Ratio] 25.69 kg/m2 Ketan Lucero MD Work Phone: [facility] 01-07-2023 11:15-0400 Body weight 74.39 kg Ketan Lucero MD Work Phone: [facility] 01-07-2023 11:15-0400 Diastolic blood pressure 70 mm[Hg] Ketan Lucero MD Work Phone: [facility] 01-07-2023 11:15-0400 Heart rate 66 /min Ketan Lucero MD Work Phone: [facility] 01-07-2023 11:15-0400 Systolic blood pressure 118 mm[Hg] Ketan Lucero MD Work Phone: [facility] 11-25-2022 13:48-0400 Body height 167.64 cm Aracelis Pedroza Work Phone: [facility] DO Work Phone: 11-25-2022 13:48-0400 Body mass index (BMI) [Ratio] 27.28 kg/m2 Aracelis Pedroza Work Phone: [facility] 250 DO Work Phone: 11-25-2022 13:48-0400 Body surface area Derived from formula 1.86 m2 Aracelis Pedroza Work Phone: [facility] DO Work Phone: 11-25-2022 13:48-0400 Body weight 76.66 kg Aracelis Pedroza Work Phone: [facility] DO Work Phone: 11-25-2022 13:48-0400 Diastolic blood pressure 70 mm[Hg] Aracelis Pedroza Work Phone: [facility] DO Work Phone: 11-25-2022 13:48-0400 Heart rate 62 /min Aracelis Pedroza Work Phone: [facility] DO Work Phone: 11-25-2022 13:48-0400 Systolic blood pressure 146 mm[Hg] Aracelis Pedroza Work Phone: [facility] DO Work Phone: 10-21-2022 12:29-0400 Body height 167.64 cm Aracelis Pedroza Work Phone: [facility] DO Work Phone: 10-21-2022 12:29-0400 Body mass index (BMI) [Ratio] 27.12 kg/m2 Aracelis Pedroza Work Phone: [facility] DO Work Phone: 10-21-2022 12:29-0400 Body surface area Derived from formula 1.86 m2 Aracelis Pedroza Work Phone: [facility] DO Work Phone: 10-21-2022 12:29-0400 Body weight 76.2 kg Aracelis Pedroza Work Phone: [facility] DO Work Phone: 10-21-2022 12:29-0400 Diastolic blood pressure 60 mm[Hg] Aracelis Pedroza Work Phone: [facility] DO Work Phone: 10-21-2022 12:29-0400 Heart rate 65 /min Aracelis Pedroza Work Phone: [facility] DO Work Phone: 10-21-2022 12:29-0400 Systolic blood pressure 106 mm[Hg] Aracelis Pedroza Work Phone: [facility] DO Work Phone: 09-25-2022 15:44-0400 Body temperature 97.7 [degF] Aracelis Pedroza Work Phone: [facility] DO Work Phone: 09-25-2022 15:43-0400 Body weight 79.38 kg Aracelis Pedroza Work Phone: [facility] DO Work Phone: 09-25-2022 15:43-0400 Diastolic blood pressure 74 mm[Hg] Aracelis Pedroza Work Phone: [facility] 250 DO Work Phone: 09-25-2022 15:43-0400 Heart rate 58 /min Aracelis Pedroza Work Phone: [facility] DO Work Phone: 09-25-2022 15:43-0400 Systolic blood pressure 122 mm[Hg] Aracelis Pedroza Work Phone: [facility] DO Work Phone: 09-18-2022 12:00-0400 Diastolic blood pressure 88 mm[Hg] MD Aracelis Pedroza Work Phone: [facility] 09-18-2022 12:00-0400 Heart rate 72 /min MD Aracelis Pedroza Work Phone: [facility] 09-18-2022 12:00-0400 Respiratory rate 18 /min MD Aracelis Pedroza Work Phone: [facility] 09-18-2022 12:00-0400 SaO2% (BldA) [Mass fraction] 100 % MD Aracelis Pedroza Work Phone: [facility] 09-18-2022 12:00-0400 Systolic blood pressure 134 mm[Hg] MD Aracelis Pedroza Work Phone: [facility] 09-18-2022 07:56-0400 Body temperature 97.9 [degF] MD Aracelis Pedroza Work Phone: [facility] 09-18-2022 06:00-0400 Body weight 79.1 kg MD Aracelis Pedroza Work Phone: [facility] 09-17-2022 19:56-0400 Body height 172.72 cm MD Aracelis Pedroza Work Phone: [facility] 09-17-2022 19:56-0400 Body mass index (BMI) [Ratio] 26.4 kg/m2 MD Aracelis Pedroza Work Phone: [facility] 09-17-2022 17:03-0400 Inhaled oxygen flow rate 6 L/min MD Aracelis Pedroza Work Phone: [facility] 09-14-2022 22:30-0400 Diastolic blood pressure 73 mm[Hg] MD Aracelis Pedroza Work Phone: [facility] 09-14-2022 22:30-0400 Heart rate 64 /min MD Aracelis Pedroza Work Phone: [facility] 09-14-2022 22:30-0400 Respiratory rate 18 /min MD Aracelis Pedroza Work Phone: [facility] 09-14-2022 22:30-0400 SaO2% (BldA) [Mass fraction] 96 % MD Aracelis Pedroza Work Phone: [facility] 09-14-2022 22:30-0400 Systolic blood pressure 130 mm[Hg] MD Aracelis Pedroza Work Phone: [facility] 09-14-2022 17:08-0400 Body height 172.72 cm MD Aracelis Pedroza Work Phone: [facility] 09-14-2022 17:08-0400 Body weight 83 kg MD Aracelis Pedroza Work Phone: [facility] 09-14-2022 17:02-0400 Body temperature 97.8 [degF] MD Aracelis Pedroza Work Phone: [facility] Encounters Encounter Date Encounter Type Care Provider Facility Start: 03-01-2023 End: 03-01-2023 ambulatory [facility] Ambulatory Start: 03-01-2023 End: 03-01-2023 Office outpatient visit 25 minutes Ketan Lucero MD Work Phone: [facility] Comment on above: Sick sinus syndrome due to sinoatrial node dysfunction (CMS/HCC) (Primary Dx); Atrial fibrillation, unspecified type (CMS/HCC); Paroxysmal atrial fibrillation (CMS/HCC); Pacemaker; Mixed hyperlipidemia; Hypertension, benign; Anticoagulated Start: 02-03-2023 End: 02-11-2023 Evaluation and management of inpatient Miguel Hinson Facility:[facility] Start: 02-03-2023 End: 02-11-2023 Evaluation and management of inpatient MD Aracelis Pedroza Work Phone: [facility] Work Phone: Start: 02-02-2023 Evaluation and manag ement of inpatient MD Aracelis Pedroza Work Phone: [facility] Work Phone: Start: 02-02-2023 observation encounter MD Gwyn Pedroza Work Phone: [facility] Work Phone: Start: 01-07-2023 End: 01-07-2023 ambulatory KETAN Cunha [facility] Ambulatory Start: 01-07-2023 End: 01-07-2023 Office outpatient visit 25 minutes Ketan Lucero MD Work Phone: [facility] Comment on above: Anticoagulated (Prim chivo Dx); Sick sinus syndrome due to sinoatrial node dysfunction (CMS/HCC); Pacemaker; Mixed hyperlipidemia; Hypertension, benign; Paroxysmal atrial fibrillation (CMS/HCC) Start: 12-04-2022 Chart Update Aracelis Pedroza Work Phone: [facility] DO Work Phone: Start: 11-25-2022 Office outpatient vi sit 25 minutes Aracelis Pedroza Work Phone: [facility] DO Work Phone: Start: 11-25-2022 ambulatory Olga Wyatt Facility:1 9836 Start: 11-17-2022 End: 11-17-[address] Aracelis Pedroza Facility:[id number] Start: 11-17-2022 End: 11-17-2022 Patient encounter procedure MD Aracelis Pedroza Work Phone: [facility]Pacemaker Check Start: 11-13-2022 Chart Update Aracelis Pedroza Work Phone: [facility] DO Work Phone: Start: 11-12-2022 Telephone encounter Aracelis herrera Work Phone: [facility] DO Work Phone: Start: 11-12-[address] Aracelis Pedroza Facility:[id number] Start: 10-21-2022 Office outpatient vi sit 25 minutes Aracelis Pedroza Work Phone: [facility] DO Work Phone: Start: 10-21-2022 Patient encounter procedure Aracelis Pedroza Work Phone: [facility] DO Work Phone: Start: 10-21-2022 ambulatory Olga Wyatt Facility:1 9836 Start: 09-30-2022 Patient encounter procedure Aracelis Pedroza Work Phone: [facility] 250 DO Work Phone: Start: 09-25-2022 Postop follow up vis it related to original px Aracelis Pedroza Work Phone: [facility] DO Work Phone: Start: 09-25-2022 End: 09-25-[address] Aracelis Pedroza Facility:[id number] Start: 09-21-2022 Telephone encounter Ketan Hall MD Work Phone: [facility] 250 DO Work Phone: Start: 09-18-[address] Aracelis Pedroza Facilit y:[id number] Start: 09-18-[address] Aracelis Pedroza Facilit y:[id number] Start: 09-18-[address] Aracelis Pedroza Facility:[id number] Start: 09-17-[address] Ketan Lucero II Facility:[id number] Start: 09-14-2022 End: 09-18-2022 Evaluation and management of inpatient Charlie Telly Facility:[facility] Start: 09-14-2022 End: 09-18-2022 Evaluation and management of inpatient MD Aracelis Pedroza Work Phone: [facility] Work Phone: Start: 09-11-2022 End: 09-11-2022 ambulatory Aracelis Pedroza Facility:[facility] Start: 09-11-2022 End: 09-11-2022 Patient encounter procedure MD Aracelis Pedroza Work Phone: [facility]-Electrodiagnostic s Work Phone: Start: 09-11-[address] Aracelis Pedroza Facilit y:[id number] Radionuclide heart s tudy normal Aracelis Pedroza Work Phone: [facility] 250 DO Work Phone: Procedures Date Procedure Procedure Detail Performing Clinician Start: 03-01-2023 ECG 12-LEAD KETAN HALL Start: 03-01-2023 FOLLOW UP IN CARDIOLOGY KETAN LUCERO Start: 03-01-2023 Ecg routine ecg w/le ast 12 lds w/i&r Ketan Lucero MD Work Phone: Start: 02-02-2023 Plain chest X-ray MD Jennifer Pedroza Work Phone: Start: 11-17-2022 Plain chest X-ray MD Jennifer Pedroza Work Phone: Start: 11-12-2022 Echocardiography Aracelis Pedroza Work Phone: Start: 09-18-2022 Plain chest X-ray MD Jennifer Pedroza Work Phone: Start: 09-17-2022 Plain chest X-ray MD Jennifer Pedroza Work Phone: Start: 09-17-2022 Implantation of card iac pacemaker MD Aracelis Pedroza Work Phone: Start: 09-17-2022 Radionuclide myocard ial perfusion stress study MD Aracelis Pedroza Work Phone: Start: 09-14-2022 Plain chest X-ray MD Jennifer Pedroza Work Phone: Start: 03-15-2019 Total colonoscopy Gwyn Pedroza Work Phone: Excision of cyst Aracelis Kellee salazar Work Phone: Insertion of pacemak er pulse generator Aracelis Pedroza Work Phone: Jaw and temporomandi bular joint operations Aracelis Pedroza Work Phone: Mouth and face operations Jennifer Pedroza Work Phone: Plan of Treatment Date Care Activity Detail Author Start: 10-18-2029 DTaP/Tdap/Td Vaccines (2 - Td or Tdap) DTaP/Tdap/Td Vaccines (2 - Td or Tdap) [facility] Start: 12-17-2023 Urine screening for protein Diabetes: Urine Protein Screening [facility] Start: 08-06-2023 End: 08-06-2023 Patient encounter procedure 08/06/2023 2:50 PM EDT Office Visit [address] [id number] Ketan Lucero MD [address] [place] [address] 2, Markos [address] [place] [address] [facility] Start: 06-11-2023 End: 06-11-2023 Patient encounter procedure 06/11/2023 2:10 PM EDT Office Visit [address] [phone] Ktean Lucero MD [address] [place] [address] 2, [address] [place] [address] [facility] Start: 04-23-2023 Glaucoma screening Diabetes: Retinopathy Screening [facility] Start: 04-08-2023 Hemoglobin A1c measurement Diabetes: Hemoglobin A1C [facility] Start: 02-11-2023 [facility] Start: 02-02-2023 Hospital admission [facility] Start: 02-02-2023 [facility] Start: 01-07-2023 FUV, Provider: Ketan Lucero, Status: Pen, Time: 10:50 AM FUV, Provider: Ketan Lucero, Status: Pen, Time: 10:50 AM -[facility] DO Work Phone: Start: 11-25-2022 FUV, Provider: Olga Landon, Status: Pen, Time: 1:30 PM FUV, Provider: Olga Landon, Status: Pen, Time: 1:30 PM -[facility] DO Work Phone: Start: 11-12-2022 ECHO, Provider: JOSE HHVI ULTRASOUND 01,[id number], Status: Pen, Time: 2:30 PM ECHO, Provider: JOSE HHVI ULTRASOUND 01,[id number], Status: Pen, Time: 2:30 PM MP-[facility] DO Work Phone: Start: 10-21-2022 FUV, Provider: Olga Landon, Status: Pen, Time: 12:30 PM FUV, Provider: Olga Landon, Status: Pen, Time: 12:30 PM -[facility] DO Work Phone: Start: 09-25-2022 ALEXA, Provider: CHRISTINE GRACIA MAC ARTIST 1,[id number], Status: Pen, Time: 11:00 AM ALEXA, Provider: CHRISTINE GRACIA MAC ARTIST 1,[id number], Status: Pen, Time: 11:00 AM -[facility] 250 DO Work Phone: Start: 09-18-2022 [facility] Start: 09-17-2022 [facility] Start: 09-15-2022 Blood chemistry [facility] Start: 09-15-2022 [facility] Start: 09-14-2022 Hospital admission [facility] Start: 09-14-2022 Referral to speech language assistant [facility] Start: 09-14-2022 [facility] Start: 09-14-2022 [facility] Start: 03-07-2022 COVID-19 Vaccine (4 - Pfizer series) COVID-19 Vaccine (4 - Pfizer series) [facility] Start: 01-14-1962 Hepatitis C screening Hepatitis C Screening [facility] Start: 01-14-1954 Diabetic foot examination Diabetes: Foot Exam [facility] Start: 01-14-1954 Glaucoma screening Diabetes: Retinopathy Screening [facility] Start: 1945 Hemoglobin A1c measurement Diabetes: Hemoglobin A1C [facility] Start: 1944 Lipid panel Lipid Panel [facility] Start: 1945 Medicare Annual Wellness Visit Medicare Annual Wellness Visit (AWV) [facility] Patient referral [facility] Work Phone: Immunizations Immunization Date Immunization Notes Care Provider Jerry fowler 11-24-2022 Fluad Quadrivalent 0 .5 ML Intramuscular Prefilled Syringe Aracelis Pedroza Work Phone: [facility] 01-10-2022 Pfizer COVID-19 Vac Bivalent 30 MCG/0.3ML Intramuscular Suspension Aracelis Pedroza Work Phone: [facility] 250 DO Work Phone: 12-25-2021 influenza, high dose seasonal, preservative-free [facility]acelis Pedroza [facility] Work Phone: 12-18-2020 Pfizer-BioNTech COVID-19 Vacc 30 MCG/0.3ML Intramuscular Suspension Aracelis Pedroza Work Phone: [facility] 250 DO Work Phone: 05-03-2020 Pfizer-BioNTech COVID-19 Vacc 30 MCG/0.3ML Intramuscular Suspension Aracelis Pedroza Work Phone: [facility] 250 DO Work Phone: 04-12-2020 [employer] COVID-19 Vacc 30 MCG/0.3ML Intramuscular Suspension Aracelis Pedroza Work Phone: [place] [address] DO Work Phone: 11-29-2019 Seasonal trivalent influenza vaccine, adjuvanted, preservative free Aracelis Pedroza Work Phone: [facility] 10-18-2019 tetanus and diphther ia toxoids, adsorbed, preservative free, for adult use (5 Lf of tetanus toxoid and 2 Lf of diphtheria toxoid) Aracelis Pedroza Work Phone: [place] [address] DO Work Phone: 01-02-2019 Seasonal trivalent influenza vaccine, adjuvanted, preservative free Aracelis Pedroza Work Phone: [facility] 12-28-2018 zoster vaccine recombinant Aracelis Pedroza Work Phone: [place] [address] DO Work Phone: 09-21-2018 zoster vaccine recombinant Aracelis Pedroza Work Phone: [place] [address] DO Work Phone: 11-25-2017 Seasonal trivalent influenza vaccine, adjuvanted, preservative free Aracelis Pedroza Work Phone: [facility] 01-11-2017 influenza, injectabl e, quadrivalent, preservative free Aracelis Pedroza Work Phone: [place] [address] DO Work Phone: Payers Date Payer Category Payer Unknown [id number] 2022 Medicare [id number] 2022 Self-pay [id number] 2021 Medicare [id number] 2021 Unknown 1945 Unknown [id number] 2.16.8 [id number] 1944 Unknown [id number] 2.16. [id number] 1944 Unknown [id number] 2.16. [id number] 1944 Unknown [id number] 2.16. [id number] 1944 Unknown [id number] 2.16. [id number] 1944 Unknown [id number] 2.16. [id number] 1944 Unknown [id number] 2.16. [id number] 1944 Unknown [id number] 2.16. [id number] 1944 Unknown [id number] 2.16. [id number] 1944 Unknown [id number] 2.16. [id number] 1944 Unknown [id number] 2.16.8 [id number] 1944 Unknown [id number] 2.16.8 [id number] Unknown [id number] 2.16.8 [id number] Unknown [id number] 2.16.8 [id number] Unknown [id number] 2.16.8 [id number] Unknown [id number] 2.16.8 [id number] Unknown [id number] 2.16.8 [id number] Social History Date Type Detail Facility Tobacco smoking stat [facility] Unknown if ever smoked [facility] Start: 1945 Sex Assigned At Male F [facility] Start: 09-14-2022 Tobacco smoking stat [facility] Never smoked tobacco (finding) [facility] Start: 09-17-2022 End: 01-07-2023 Tobacco smoking status RIIS Ex-smoker (finding) [facility] Start: 01-07-2023 End: 03-01-2023 Consumes alcohol occasionally Consumes alcohol occasionally -[facility] DO Work Phone: Comment on above: coffee 1 cup daily p op couple daily; quit in the 80's; End: 03-15-1982 History of tobacco use Current smoker [facility] Work Phone: End: 03-15-1982 History of tobacco use Cigarette Smoker [facility] Work Phone: Start: 01-07-2023 Tobacco use and exposure Smokeless tobacco non-user [facility] Work Phone: Start: 01-07-2023 End: 03-01-2023 Alcohol intake Current drinker of alcohol (finding) [facility] Work Phone: Start: 01-07-2023 End: 03-01-2023 Tobacco use panel [facility] Work Phone: Start: 01-07-2023 Alcohol Comment occassionally [facility] Work Phone: Start: 1945 Sex Assigned At Not on file [facility] Work Phone: Start: 12-28-2022 End: 03-01-2023 Exposure to SARS-CoV-2 (event) Not sure [facility] Start: 03-01-2023 Alcohol Comment rarely [facility] Work Phone: Medical Equipment Procedure Code Equipment Code Equipment Origin al Text Equipment Identifier Dates Insertion, pacemaker Endocardial pacing lead [id number] FDA Start: 09-17-2022 Insertion, pacemaker Endocardial pacing lead [id number] FDA Start: 09-17-2022 Insertion, pacemaker Dual-chamber implantable pacemaker, rate-responsive [id number] FDA Start: 09-17-2022 Goals Date Patient Goal Desired Activity /State Functional Status Date Assessment Result Facility 02-11-2023 Functional status Patient is Pro gressing Toward Baseline [facility] Work Phone: 09-18-2022 Functional status Patient at Baseline [facility] Work Phone: 09-14-2022 Functional status Patient at Baseline [facility] Work Phone: Mental Status Date Assessment Result Facility 02-11-2023 Cognitive function Cognitive Sta tus Patient at Baseline [facility] Work Phone: 09-18-2022 Cognitive function Cognitive Sta tus Patient at Baseline [facility] Work Phone: 09-14-2022 Cognitive function Cognitive Sta tus Patient at Baseline [facility] Work Phone: Clinical Notes 09-14-2022 to 03-01-2023 Ketan Lucero MD - 03/01/2023 9:30 AM ESTPatient Instructions Note Date & Type Note Facility 03-01-2023 History of Presen t illness Narrative Subjective Tadeo Thomas is a 78 y.o. male Chief Complaint Follow-up HPI Patient is seen in follow-up of problems as noted. In the interim he had been recently hospitalized under the care of other partners. Because of the breakthrough of atrial arrhythmia he underwent implementation of flecainide therapy. He appears to restore and maintain sinus rhythm and he has an acceptable QT interval. His rhythm is basically a pacemaker rhythm with occasional PVC ACs or PVCs. I cannot elicit from him any angina CHF or arrhythmia symptomatology and he is pleased with the care that was rendered in the hospital. Because of this we will continue therapy as ordered. Review of Systems All other systems reviewed and are negative. Visit Vitals Ht 1.702 m (5' 7 ) Wt 69.4 kg (153 lb) BMI 23.96 kg/m Smoking Status Former BSA 1.81 m EKG done in office today Objective Physical Exam Constitutional: Appearance: Normal appearance. HENT: Head: Normocephalic and atraumatic. Nose: Nose normal. Eyes: Pupils: Pupils are equal, round, and reactive to light. Cardiovascular: Rate and Rhythm: Normal rate and regular rhythm. Pulmonary: Effort: Pulmonary effort is normal. Breath sounds: Normal breath sounds. Musculoskeletal: Cervical back: Normal range of motion and neck supple. Skin: General: Skin is warm and dry. Neurological: General: No focal deficit present. Mental Status: He is alert. Current Medications Current Outpatient Medications: alogliptin (Nesina) 25 mg tablet, Take 1 tablet (25 mg) by mouth once daily., Disp: , Rfl: apixaban (Eliquis) 5 mg tablet, Take 1 tablet (5 mg) by mouth 2 times a day., Disp: , Rfl: cyanocobalamin, vitamin B-12, (Vitamin B-12) 1,000 mcg tablet extended release, Take 1 tablet (1,000 mcg) by mouth once daily., Disp: , Rfl: dilTIAZem CD (Cardizem CD) 120 mg 24 hr capsule, Take 1 capsule (120 mg) by mouth once daily., Disp: 90 capsule, Rfl: 3 flecainide (Tambocor) 50 mg tablet, Take 1 tablet (50 mg) by mouth 2 times a day., Disp: , Rfl: glipiZIDE (Glucotrol) 10 mg tablet, Take 1 tablet (10 mg) by mouth 2 times a day., Disp: , Rfl: losartan (Cozaar) 25 mg tablet, Take 1 tablet (25 mg) by mouth once daily., Disp: , Rfl: metFORMIN (Glucophage) 1,000 mg tablet, Take 1 tablet (1,000 mg) by mouth 2 times a day., Disp: , Rfl: multivitamin tablet, Take 1 tablet by mouth once daily., Disp: , Rfl: pioglitazone (Actos) 30 mg tablet, Take 1 tablet (30 mg) by mouth once daily., Disp: , Rfl: pravastatin (Pravachol) 80 mg tablet, Take 1 tablet (80 mg) by mouth once daily., Disp: , Rfl: vitamin E 180 mg (400 unit) capsule, Take 1 capsule (400 Units) by mouth once daily., Disp: , Rfl: EKG done in office today Scribe Attestation By signing my name below, Deedee Ferrell lpn , Scribe attest that this documentation has been prepared under the direction and in the presence of Ketan Lucero MD. Assessment/Plan 1. Atrial fibrillation, unspecified type (CMS/HCC) No recurrence on present therapy implemented by Dr. Yoko Berry same. 2. Sick sinus syndrome due to sinoatrial node dysfunction (CMS/HCC) This is the indication for previous pacemaker implantation. It has obviously mitigated. The device also helps to facilitate and prevent bradycardia arrhythmia now that antiarrhythmic therapies have been started. 3. Paroxysmal atrial fibrillation (CMS/HCC) Restored to sinus rhythm with low-dose flecainide 4. Pacemaker Device checks reviewed and satisfactory. 5. Mixed hyperlipidemia Adequate control on current therapy. 6. Hypertension, benign Adequate control on current therapy. 7. Anticoagulated Well-tolerated without complaint or complication. documented in this encounter [facility] Work Phone: 03-01-2023 Instructions Oumou Jacobs CMA - 03/01/2023 9:30 AM EST Please bring all medicines, vitamins, and herbal supplements with you when you come to the office. Prescriptions will not be filled unless you are compliant with your follow up appointments or have a follow up appointment scheduled as per instruction of your physician. Refills should be requested at the time of your visit. Fall Prevention Education Given documented in this encounter [facility] Work Phone: 02-10-2023 Progress note Note Date/Time February 10, 2023 3:24pm [facility] [address] [place] [address] Hospitalist Progress Note Signed Patient: Tadeo Thomas MR#: [id number] : 1945 Acct:[id number] Age/Sex: 78 / M Adm Date: 3 Loc: Room: [address] [place] [address] Type: ADM IN Attending Dr: Miguel Hinson MD Copies to: ~ Date of Service: 02/10/2023 Subjective Subjective Narrative: Patient was seen and evaluated at bedside. Out of bed to chair. Remained afebrile, hemodynamically stable. Denies any nausea, vomiting diarrhea. No majorevents overnight. Awaiting on placement for him. Exam Physical Exam Vital Signs: Temp Pulse Resp BP Pulse Ox O2 Del Method 97.6 F 55 L 18 118/72 99 Room Air 02/10/23 12:00 02/10/23 12:00 02/10/23 12:00 02/10/23 12:00 02/10/23 12:00 02/10/23 12:00 Narrative: Const General: cooperative Pulmonary Auscultation: clear to auscultation , no crackles, no wheezes Cardiovascular Rate: normal rate Rhythm: regular rhythm Heart Sounds: S1 normal, S2 normal and no murmurs GI Inspection: non-distended Palpation: soft, not firm and nontender. No rigidity or rebound. Deferred Neuro General: alert, awake and oriented x3. No obvious new focal deficit Musculoskeletal: normal range of motion Extrem General: no cyanosis, no pedal edema Psych Appearance: appropriate affect. Grossly normal Objective Lab Results 02/07/23 06:13 02/07/23 06:13 Meds Allergies and Active Meds Allergies No Known Allergies Allergy (Verified 02/02/23 11:51) Active Meds: Active Medications Generic Name Dose Route Start Last Admin Trade Name Pratibha PRN Reason Stop Dose Admin Acetaminophen 650 mg 02/02/23 15:27 Acetaminophen 325 Mg Tablet PO 02/02/24 15:26 Q6HR PRN Pain Scale 1 - 3 or fever Apixaban 5 mg 02/02/23 21:00 02/10/23 08:16 Apixaban 5 Mg Tablet PO 02/02/24 20:59 5 mg BID ROBERTO Administration Bisacodyl 10 mg 02/02/23 15:27 Bisacodyl 5 Mg Tablet.Dr PO 02/02/24 15:26 DAILY PRN Constipation Diltiazem HCl 120 mg 02/04/23 13:00 02/10/23 08:16 Diltiazem Cd.24hr 120 Mg Cap.Er.24h PO 02/04/24 12:59 120 mg DAILY ROBERTO Administration Flecainide Acetate 50 mg 02/03/23 21:00 02/10/23 08:15 Flecainide Acetate 50 Mg Tablet PO 02/03/24 20:59 50 mg BID ROBERTO Administration Glipizide 10 mg 02/02/23 17:00 02/10/23 08:16 Glipizide 5 Mg Tablet PO 02/02/24 16:59 10 mg BID.WITH.MEALS ROBERTO Administration Linagliptin 5 mg 02/03/23 09:00 02/10/23 08:16 Linagliptin 5 Mg Tablet PO 02/03/24 08:59 5 mg DAILY ROBERTO Administration Melatonin 5 mg 02/02/23 15:27 02/04/23 20:26 Melatonin 5 Mg Tablet PO 02/02/24 15:26 5 mg QHS PRN Administration Insomnia Metformin HCl 1,000 mg 02/03/23 08:00 02/10/23 08:16 Metformin 500 Mg Tablet PO 02/03/24 07:59 1,000 mg DAILY.WITH.BKFAST ROBERTO Administration Ondansetron HCl 4 mg 02/02/23 15:27 Ondansetron 4 Mg/2 Ml Vial IV-PUSH 02/02/24 15:26 Q8H PRN Nausea And Vomiting Pioglitazone HCl 30 mg 02/03/23 09:00 02/10/23 08:15 Pioglitazone 30 Mg Tablet PO 02/03/24 08:59 30 mg DAILY ROBERTO Administration Pravastatin Sodium 80 mg 02/03/23 09:00 02/10/23 08:15 Pravastatin 40 Mg Tablet PO 02/03/24 08:59 80 mg DAILY ROBERTO Administration Sodium Chloride 0 ml 02/02/23 11:50 02/02/23 12:21 Sodium Chloride 0.9 % 10 Ml Syringe IV-PUSH 02/02/24 11:49 10 ml PRN PRN Administration Flush A&P - Hospitalist Assessment/Plan (1) Tachyarrhythmia: (2) Tachy-rosette syndrome: (3) Diabetes type 2, controlled: (4) Hyperlipemia: Plan Atrial flutter with 2:1 A block- currently in sinus- controlled rate Hx of Tachybradycardia syndrome -Clinically remained stable -Continue Flecainide- tolerating well so far -Continue Cardizem- tolerating well so far -PT/OT recommended SNF -Plan to discharge to SNF- awaiting arrangements for placement. CM following Sick sinus syndrome status post pacemaker: As above Obesity: Lifestyle modification Hypertension: Hold losartan due to hypotension on admission. Continue to hold it. Has been normotensive here. Diabetes type 2: Accu-Chek ACHS/insulin sliding scale/resume glipizide and metformin Hyperlipidemia: Continue statin Patient remains hemodynamically stable and medically optimized for discharge once arrangements are made Discussed with patient at bedside. Awaiting PreCert. Documented By: Miguel Hinson MD 02/10/23 Signed By: <Electronically signed by Miguel Hinson MD> 02/10/23 1524 [facility] Work Phone: 1(244) 261-800611-28-2023 Progress note Author Miguel Hinson [facility] February 09, 2023 12:48pm Note Date/Time February 09, 2023 12:48pm [facility] [address] [place] [address] Hospitalist Progress Note Signed Patient: Tadeo Thomas MR#: [id number] : 1945 Acct:[id number] Age/Sex: 78 / M Adm Date: 3 Loc: Room: [address] [place] [address] Type: ADM IN Attending Dr: Miguel Hinson MD Copies to: ~ Date of Service: 02/09/2023 Subjective Subjective Narrative: Patient was seen and evaluated at bedside. Out of bed to chair. Remained afebrile, hemodynamically stable. Denies any nausea, vomiting diarrhea. No majorevents overnight. Awaiting on placement for him. Exam Physical Exam Vital Signs: Temp Pulse Resp BP Pulse Ox O2 Del Method 97.6 F 73 16 139/78 98 Room Air 02/09/23 08:00 02/09/23 12:00 02/09/23 12:00 02/09/23 12:00 02/09/23 12:00 02/09/23 12:00 Narrative: Const General: cooperative HEENT Normal oropharyngeal mucosa without any ulcers or exudates Eyes: Conjunctiva normal Pulmonary Auscultation: clear to auscultation , no crackles, no wheezes Cardiovascular Rate: normal rate Rhythm: regular rhythm Heart Sounds: S1 normal, S2 normal and no murmurs GI Inspection: non-distended Palpation: soft, not firm and nontender. No rigidity or rebound. Deferred Neuro General: alert, awake and oriented x3. No obvious new focal deficit Musculoskeletal: normal range of motion Extrem General: no cyanosis, no pedal edema Psych Appearance: appropriate affect. Grossly normal Objective Lab Results 02/07/23 06:13 02/07/23 06:13 Meds Allergies and Active Meds Allergies No Known Allergies Allergy (Verified 02/02/23 11:51) Active Meds: Active Medications Generic Name Dose Route Start Last Admin Trade Name Freq PRN Reason Stop Dose Admin Acetaminophen 650 mg 02/02/23 15:27 Acetaminophen 325 Mg Tablet PO 02/02/24 15:26 Q6HR PRN Pain Scale 1 - 3 or fever Apixaban 5 mg 02/02/23 21:00 02/09/23 08:46 Apixaban 5 Mg Tablet PO 02/02/24 20:59 5 mg BID ROBERTO Administration Bisacodyl 10 mg 02/02/23 15:27 Bisacodyl 5 Mg Tablet.Dr PO 02/02/24 15:26 DAILY PRN Constipation Diltiazem HCl 120 mg 02/04/23 13:00 02/09/23 08:45 Diltiazem Cd.24hr 120 Mg Cap.Er.24h PO 02/04/24 12:59 120 mg DAILY ROBERTO Administration Flecainide Acetate 50 mg 02/03/23 21:00 02/09/23 08:45 Flecainide Acetate 50 Mg Tablet PO 02/03/24 20:59 50 mg BID ROBERTO Administration Glipizide 10 mg 02/02/23 17:00 02/09/23 08:45 Glipizide 5 Mg Tablet PO 02/02/24 16:59 10 mg BID.WITH.MEALS ROBERTO Administration Linagliptin 5 mg 02/03/23 09:00 02/09/23 08:45 Linagliptin 5 Mg Tablet PO 02/03/24 08:59 5 mg DAILY ROBERTO Administration Melatonin 5 mg 02/02/23 15:27 02/04/23 20:26 Melatonin 5 Mg Tablet PO 02/02/24 15:26 5 mg QHS PRN Administration Insomnia Metformin HCl 1,000 mg 02/03/23 08:00 02/09/23 08:45 Metformin 500 Mg Tablet PO 02/03/24 07:59 1,000 mg DAILY.WITH.BKFAST ROBERTO Administration Ondansetron HCl 4 mg 02/02/23 15:27 Ondansetron 4 Mg/2 Ml Vial IV-PUSH 02/02/24 15:26 Q8H PRN Nausea And Vomiting Pioglitazone HCl 30 mg 02/03/23 09:00 02/09/23 08:45 Pioglitazone 30 Mg Tablet PO 02/03/24 08:59 30 mg DAILY ROBERTO Administration Pravastatin Sodium 80 mg 02/03/23 09:00 02/09/23 08:45 Pravastatin 40 Mg Tablet PO 02/03/24 08:59 80 mg DAILY ROBERTO Administration Sodium Chloride 0 ml 02/02/23 11:50 02/02/23 12:21 Sodium Chloride 0.9 % 10 Ml Syringe IV-PUSH 02/02/24 11:49 10 ml PRN PRN Administration Flush A&P - Hospitalist Assessment/Plan (1) Tachyarrhythmia: (2) Tachy-rosette syndrome: (3) Diabetes type 2, controlled: (4) Hyperlipemia: Plan Atrial flutter with 2:1 A block- currently in sinus- controlled rate Hx of Tachybradycardia syndrome -Clinically remained stable -Continue Flecainide- tolerating well so far -Continue Cardizem- tolerating well so far -PT/OT recommended SNF -Plan to discharge to SNF- awaiting arrangements for placement. CM following Sick sinus syndrome status post pacemaker: As above Obesity: Lifestyle modification Hypertension: Hold losartan due to hypotension on admission. Continue to hold it. Has been normotensive here. Diabetes type 2: Accu-Chek ACHS/insulin sliding scale/resume glipizide and metformin Hyperlipidemia: Continue statin Patient remains hemodynamically stable and medically optimized for discharge once arrangements are made Discussed with patient at bedside. Awaiting PreCert. Documented By: Miguel Hinson MD 02/09/23 12 47 Signed By: <Electronically signed by Miguel Hinson MD> 02/09/23 1249 [facility] Work Phone: 1(378) 999-853011-27-2023 Progress note Author Miguel Hinson [facility] February 08, 2023 2:07pm Note Date/Time February 08, 2023 2:07pm [facility] [address] [place] [address] Hospitalist Progress Note Signed Patient: Tadeo Thomas MR#: [id number] : 1945 Acct:[id number] Age/Sex: 78 / M Adm Date: 3 Loc: Room: [address] [place] [address] Type: ADM IN Attending Dr: Miguel Hinson MD Copies to: ~ Date of Service: 02/08/2023 Subjective Subjective Narrative: Patient was seen and evaluated at bedside. Out of bed to chair. at bedside.Remained afebrile, hemodynamically stable. Denies any nausea, vomiting diarrhea.No major events overnight. Awaiting on placement for him. Exam Physical Exam Vital Signs: Temp Pulse Resp BP Pulse Ox O2 Del Method 97.9 F 76 18 97/63 L 97 Room Air 02/08/23 07:43 02/08/23 11:06 02/08/23 11:06 02/08/23 11:06 02/08/23 11:06 02/08/23 11:06 Narrative: Const General: cooperative HEENT Normal oropharyngeal mucosa without any ulcers or exudates Eyes: Conjunctiva normal Pulmonary Auscultation: clear to auscultation , no crackles, no wheezes Cardiovascular Rate: normal rate Rhythm: regular rhythm Heart Sounds: S1 normal, S2 normal and no murmurs GI Inspection: non-distended Palpation: soft, not firm and nontender. No rigidity or rebound. Deferred Neuro General: alert, awake and oriented x3. No obvious new focal deficit Musculoskeletal: normal range of motion Extrem General: no cyanosis, no pedal edema Psych Appearance: appropriate affect. Grossly normal Objective Lab Results 02/07/23 06:13 02/07/23 06:13 Meds Allergies and Active Meds Allergies No Known Allergies Allergy (Verified 02/02/23 11:51) Active Meds: Active Medications Generic Name Dose Route Start Last Admin Trade Name Freq PRN Reason Stop Dose Admin Acetaminophen 650 mg 02/02/23 15:27 Acetaminophen 325 Mg Tablet PO 02/02/24 15:26 Q6HR PRN Pain Scale 1 - 3 or fever Apixaban 5 mg 02/02/23 21:00 02/08/23 08:00 Apixaban 5 Mg Tablet PO 02/02/24 20:59 5 mg BID ROBERTO Administration Bisacodyl 10 mg 02/02/23 15:27 Bisacodyl 5 Mg Tablet.Dr PO 02/02/24 15:26 DAILY PRN Constipation Diltiazem HCl 120 mg 02/04/23 13:00 02/08/23 08:01 Diltiazem Cd.24hr 120 Mg Cap.Er.24h PO 02/04/24 12:59 120 mg DAILY ROBERTO Administration Flecainide Acetate 50 mg 02/03/23 21:00 02/08/23 08:00 Flecainide Acetate 50 Mg Tablet PO 02/03/24 20:59 50 mg BID ROBERTO Administration Glipizide 10 mg 02/02/23 17:00 02/08/23 08:00 Glipizide 5 Mg Tablet PO 02/02/24 16:59 10 mg BID.WITH.MEALS ROBERTO Administration Linagliptin 5 mg 02/03/23 09:00 02/08/23 08:01 Linagliptin 5 Mg Tablet PO 02/03/24 08:59 5 mg DAILY ROBERTO Administration Melatonin 5 mg 02/02/23 15:27 02/04/23 20:26 Melatonin 5 Mg Tablet PO 02/02/24 15:26 5 mg QHS PRN Administration Insomnia Metformin HCl 1,000 mg 02/03/23 08:00 02/08/23 08:00 Metformin 500 Mg Tablet PO 02/03/24 07:59 1,000 mg DAILY.WITH.BKFAST ROBERTO Administration Ondansetron HCl 4 mg 02/02/23 15:27 Ondansetron 4 Mg/2 Ml Vial IV-PUSH 02/02/24 15:26 Q8H PRN Nausea And Vomiting Pioglitazone HCl 30 mg 02/03/23 09:00 02/08/23 08:01 Pioglitazone 30 Mg Tablet PO 02/03/24 08:59 30 mg DAILY ROBERTO Administration Pravastatin Sodium 80 mg 02/03/23 09:00 02/08/23 08:01 Pravastatin 40 Mg Tablet PO 02/03/24 08:59 80 mg DAILY ROBERTO Administration Sodium Chloride 0 ml 02/02/23 11:50 02/02/23 12:21 Sodium Chloride 0.9 % 10 Ml Syringe IV-PUSH 02/02/24 11:49 10 ml PRN PRN Administration Flush A&P - Hospitalist Assessment/Plan (1) Tachyarrhythmia: (2) Tachy-rosette syndrome: (3) Diabetes type 2, controlled: (4) Hyperlipemia: Plan Atrial flutter with 2:1 A block- currently in sinus- controlled rate Hx of Tachybradycardia syndrome -Clinically remained stable -Continue Flecainide- tolerating well so far -Continue Cardizem- tolerating well so far -PT/OT recommended SNF -Plan to discharge to SNF- awaiting arrangements for placement. CM following Sick sinus syndrome status post pacemaker: As above Obesity: Lifestyle modification Hypertension: Hold losartan due to hypotension on admission. Continue to hold it. Has been normotensive here. Diabetes type 2: Accu-Chek ACHS/insulin sliding scale/resume glipizide and metformin Hyperlipidemia: Continue statin Patient remains hemodynamically stable and medically optimized for discharge once arrangements are made Discussed with patient and at bedside. Awaiting PreCert. Documented By: Miguel Hinson MD 02/08/23 14 06 Signed By: <Electronically signed by Miguel Hinson MD> 02/08/23 140 [facility] Work Phone: 1(516) 360-476611-26-2023 Progress note Author Miguel Hinson [facility] February 07, 2023 11:46am Note Date/Time February 07, 2023 11:45am [facility] [address] [place] [address] Hospitalist Progress Note Signed Patient: Tadeo Thomas MR#: [id number] : 1945 Acct:[id number] Age/Sex: 78 / M Adm Date: 3 Loc: 3T Room: [address] [place] [address] Type: ADM IN Attending Dr: Miguel Hinson MD Copies to: ~ Date of Service: 02/07/2023 Subjective Subjective Narrative: Patient was seen and evaluated at bedside. Out of bed to chair. Remained afebrile, hemodynamically stable. Denies any nausea, vomiting diarrhea. No majorevents overnight. Awaiting on placement for him. Exam Physical Exam Vital Signs: Temp Pulse Resp BP Pulse Ox O2 Del Method 97.8 F 64 16 116/66 98 Room Air 02/07/23 08:00 02/07/23 08:00 02/07/23 08:00 02/07/23 08:00 02/07/23 08:00 02/07/23 04:47 Narrative: Const General: cooperative HEENT Normal oropharyngeal mucosa without any ulcers or exudates Eyes: Conjunctiva normal Pulmonary Auscultation: clear to auscultation , no crackles, no wheezes Cardiovascular Rate: normal rate Rhythm: regular rhythm Heart Sounds: S1 normal, S2 normal and no murmurs GI Inspection: non-distended Palpation: soft, not firm and nontender. No rigidity or rebound. Deferred Neuro General: alert, awake and oriented x3. No obvious new focal deficit Musculoskeletal: normal range of motion Extrem General: no cyanosis, no pedal edema Psych Appearance: appropriate affect. Grossly normal Objective Lab Results 02/07/23 06:13 02/07/23 06:13 Meds Allergies and Active Meds Allergies No Known Allergies Allergy (Verified 02/02/23 11:51) Active Meds: Active Medications Generic Name Dose Route Start Last Admin Trade Name Freq PRN Reason Stop Dose Admin Acetaminophen 650 mg 02/02/23 15:27 Acetaminophen 325 Mg Tablet PO 02/02/24 15:26 Q6HR PRN Pain Scale 1 - 3 or fever Apixaban 5 mg 02/02/23 21:00 02/07/23 09:33 Apixaban 5 Mg Tablet PO 02/02/24 20:59 5 mg BID ROBERTO Administration Bisacodyl 10 mg 02/02/23 15:27 Bisacodyl 5 Mg Tablet.Dr PO 02/02/24 15:26 DAILY PRN Constipation Diltiazem HCl 120 mg 02/04/23 13:00 02/07/23 09:33 Diltiazem Cd.24hr 120 Mg Cap.Er.24h PO 02/04/24 12:59 120 mg DAILY ROBERTO Administration Flecainide Acetate 50 mg 02/03/23 21:00 02/07/23 09:33 Flecainide Acetate 50 Mg Tablet PO 02/03/24 20:59 50 mg BID ROBERTO Administration Glipizide 10 mg 02/02/23 17:00 02/07/23 09:33 Glipizide 5 Mg Tablet PO 02/02/24 16:59 10 mg BID.WITH.MEALS ROBERTO Administration Linagliptin 5 mg 02/03/23 09:00 02/07/23 09:33 Linagliptin 5 Mg Tablet PO 02/03/24 08:59 5 mg DAILY ROBERTO Administration Melatonin 5 mg 02/02/23 15:27 02/04/23 20:26 Melatonin 5 Mg Tablet PO 02/02/24 15:26 5 mg QHS PRN Administration Insomnia Metformin HCl 1,000 mg 02/03/23 08:00 02/07/23 09:33 Metformin 500 Mg Tablet PO 02/03/24 07:59 1,000 mg DAILY.WITH.BKFAST ROBERTO Administration Ondansetron HCl 4 mg 02/02/23 15:27 Ondansetron 4 Mg/2 Ml Vial IV-PUSH 02/02/24 15:26 Q8H PRN Nausea And Vomiting Pioglitazone HCl 30 mg 02/03/23 09:00 02/07/23 09:33 Pioglitazone 30 Mg Tablet PO 02/03/24 08:59 30 mg DAILY ROBERTO Administration Pravastatin Sodium 80 mg 02/03/23 09:00 02/07/23 09:33 Pravastatin 40 Mg Tablet PO 02/03/24 08:59 80 mg DAILY ROBERTO Administration Sodium Chloride 0 ml 02/02/23 11:50 02/02/23 12:21 Sodium Chloride 0.9 % 10 Ml Syringe IV-PUSH 02/02/24 11:49 10 ml PRN PRN Administration Flush A&P - Hospitalist Assessment/Plan (1) Tachyarrhythmia: (2) Tachy-rosette syndrome: (3) Diabetes type 2, controlled: (4) Hyperlipemia: Plan Atrial flutter with 2:1 A block- currently in sinus- controlled rate Hx of Tachybradycardia syndrome -Clinically remained stable -Continue Flecainide- tolerating well so far -Continue Cardizem- tolerating well so far -PT/OT recommended SNF -Plan to discharge to SNF- awaiting arrangements for placement. CM following Sick sinus syndrome status post pacemaker: As above Obesity: Lifestyle modification Hypertension: Hold losartan due to hypotension on admission. Continue to hold it. Has been normotensive here. Diabetes type 2: Accu-Chek ACHS/insulin sliding scale/resume glipizide and metformin Hyperlipidemia: Continue statin Patient remains hemodynamically stable and medically optimized for discharge once arrangements are made Documented By: Miguel Hinson MD 02/07/23 42 Signed By: <Electronically signed by Miguel Hinson MD> 02/07/23 [facility]6 [facility] Work Phone: 1(761) 351-560111-25-2023 Progress note Author Miguel Hinson [facility] February 06, 2023 12:57pm Note Date/Time February 06, 2023 12:42pm [facility] [address] [place] [address] Hospitalist Progress Note Signed Patient: Tadeo Thomas MR#: [id number] : 1945 Acct:[id number] Age/Sex: 78 / M Adm Date: 3 Loc: Room: [address] [place] [address] Type: ADM IN Attending Dr: Miguel Hinson MD Copies to: ~ Date of Service: 02/06/2023 Subjective Subjective Narrative: Patient was seen and evaluated at bedside. Patient laying comfortably in bed. Remained afebrile, hemodynamically stable. Denies any nausea, vomiting diarrhea. Exam Physical Exam Vital Signs: Temp Pulse Resp BP Pulse Ox O2 Del Method 97.8 F 69 16 154/71 H 94 L Room Air 02/06/23 08:00 02/06/23 08:00 02/06/23 08:00 02/06/23 08:00 02/06/23 08:00 02/06/23 08:00 Narrative: Const General: cooperative HEENT Normal oropharyngeal mucosa without any ulcers or exudates Eyes: Conjunctiva normal Pulmonary Auscultation: clear to auscultation , no crackles, no wheezes Cardiovascular Rate: normal rate Rhythm: regular rhythm Heart Sounds: S1 normal, S2 normal and no murmurs GI Inspection: non-distended Palpation: soft, not firm and nontender. No rigidity or rebound. Deferred Neuro General: alert, awake and oriented x3. No obvious new focal deficit Musculoskeletal: normal range of motion Extrem General: no cyanosis, no pedal edema Psych Appearance: appropriate affect. Grossly normal Objective Lab Results 02/02/23 11:35 02/03/23 06:27 Meds Allergies and Active Meds Allergies No Known Allergies Allergy (Verified 02/02/23 11:51) Active Meds: Active Medications Generic Name Dose Route Start Last Admin Trade Name Freq PRN Reason Stop Dose Admin Acetaminophen 650 mg 02/02/23 15:27 Acetaminophen 325 Mg Tablet PO 02/02/24 15:26 Q6HR PRN Pain Scale 1 - 3 or fever Apixaban 5 mg 02/02/23 21:00 02/06/23 08:37 Apixaban 5 Mg Tablet PO 02/02/24 20:59 5 mg BID ROBERTO Administration Bisacodyl 10 mg 02/02/23 15:27 Bisacodyl 5 Mg Tablet.Dr PO 02/02/24 15:26 DAILY PRN Constipation Diltiazem HCl 120 mg 02/04/23 13:00 02/06/23 08:37 Diltiazem Cd.24hr 120 Mg Cap.Er.24h PO 02/04/24 12:59 120 mg DAILY ROBERTO Administration Flecainide Acetate 50 mg 02/03/23 21:00 02/06/23 08:37 Flecainide Acetate 50 Mg Tablet PO 02/03/24 20:59 50 mg BID ROBERTO Administration Glipizide 10 mg 02/02/23 17:00 02/06/23 08:37 Glipizide 5 Mg Tablet PO 02/02/24 16:59 10 mg BID.WITH.MEALS ROBERTO Administration Sodium Chloride 1,000 mls @ 20 mls/hr 02/03/23 09:30 02/05/23 22:05 0.9% Sodium Chloride 1,000 Ml IV 02/03/24 09:29 Not Given .Q24H ROBERTO Linagliptin 5 mg 02/03/23 09:00 02/06/23 08:37 Linagliptin 5 Mg Tablet PO 02/03/24 08:59 5 mg DAILY ROBERTO Administration Melatonin 5 mg 02/02/23 15:27 02/04/23 20:26 Melatonin 5 Mg Tablet PO 02/02/24 15:26 5 mg QHS PRN Administration Insomnia Metformin HCl 1,000 mg 02/03/23 08:00 02/06/23 08:37 Metformin 500 Mg Tablet PO 02/03/24 07:59 1,000 mg DAILY.WITH.BKFAST ROBERTO Administration Ondansetron HCl 4 mg 02/02/23 15:27 Ondansetron 4 Mg/2 Ml Vial IV-PUSH 02/02/24 15:26 Q8H PRN Nausea And Vomiting Pioglitazone HCl 30 mg 02/03/23 09:00 02/06/23 08:37 Pioglitazone 30 Mg Tablet PO 02/03/24 08:59 30 mg DAILY ROBERTO Administration Pravastatin Sodium 80 mg 02/03/23 09:00 02/06/23 08:37 Pravastatin 40 Mg Tablet PO 02/03/24 08:59 80 mg DAILY ROBERTO Administration Sodium Chloride 0 ml 02/02/23 11:50 02/02/23 12:21 Sodium Chloride 0.9 % 10 Ml Syringe IV-PUSH 02/02/24 11:49 10 ml PRN PRN Administration Flush A&P - Hospitalist Assessment/Plan (1) Tachyarrhythmia: (2) Tachy-rosette syndrome: (3) Diabetes type 2, controlled: (4) Hyperlipemia: Plan 78-year-old white male past medical history of obesity, hypertension, diabetes type 2, hyperlipidemia, A-fib, sick sinus syndrome syndrome, status post pacemaker, who presents to emergency room from his primary care physician officefor evaluation for generalized weakness, exertional dyspnea, and hypotension andtachycardia in the office. Has a routine work-up which showed magnesium 1.4 anddigoxin was undetectable. Patient been feeling weak for the last 3 days. He isbeing dizzy. He has been complaining of exertional dyspnea. No orthopnea or PND. No chest pain. No cough. No fever or chills. He denies any nausea vomiting. No abdominal pain. No diarrhea. He denies having dysuria, hematuria, or frequency. Upon presentation to emergency room he did have regular wide complex tachycardia. Patient was given small dose of Lopressor. His QT was prolonged and he was given 2 g of magnesium and a small IV fluid bolus. His CBC was unremarkable. BMP showed mild hyponatremia 134 otherwise unremarkable. And it was negative. 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 Digoxin level was negative. Chest x-ray was clear no acute finding. Patient was given digoxin in the emergency room. His heart rate is better controlled now. It looks like his pacemaker is not capturing. Patient was admitted to the hospitalfor observation with telemetry. Atrial flutter with 2:1 A block- currently in sinus- controlled rate Hx of Tachybradycardia syndrome -Clinically remained stable -Started on Flecainide- tolerating well so far -Restarted on Cardizem- tolerating well so far -PT/OT recommended SNF -Plan to discharge to SNF -Social service following for discharge planning Sick sinus syndrome status post pacemaker: As above Obesity: Lifestyle modification Hypertension: Hold losartan due to hypotension on admission Diabetes type 2: Accu-Chek ACHS/insulin sliding scale/resume glipizide and metformin Hyperlipidemia: Resume statin Patient remains hemodynamically stable and medically optimized for discharge once arrangements are made Documented By: Miguel Hinson MD 02/06/23 12 39 Signed By: <Electronically signed by Miguel Hinson MD> 02/06/[address] [place] [address] Ctr Work Phone: 1(498) 936-967211-24-2023 Progress note Author Jennifer Cruz [facility] February 05, 2023 12:39pm Note Date/Time February 05, 2023 12:39pm [facility] [address] [place] [address] Hospitalist Progress Note Signed Patient: Tadeo Thomas MR#: [id number] : 1945 Acct:[id number] Age/Sex: 78 / M Adm Date: 3 Loc: Room: [address] [place] [address] Type: ADM IN Attending Dr: Jennifer Cruz MD Copies to: ~ Date of Service: 02/05/2023 Subjective Subjective Narrative: 78-year-old white male past medical history of obesity, hypertension, diabetes type 2, hyperlipidemia, A-fib, sick sinus syndrome syndrome, status post pacemaker, who presents to emergency room from his primary care physician officefor evaluation for generalized weakness, exertional dyspnea, and hypotension andtachycardia in the office. Has a routine work-up which showed magnesium 1.4 anddigoxin was undetectable. Patient been feeling weak for the last 3 days. He isbeing dizzy. He has been complaining of exertional dyspnea. No orthopnea or PND. No chest pain. No cough. No fever or chills. He denies any nausea vomiting. No abdominal pain. No diarrhea. He denies having dysuria, hematuria, or frequency. Upon presentation to emergency room he did have regular wide complex tachycardia. Patient was given small dose of Lopressor. His QT was prolonged and he was given 2 g of magnesium and a small IV fluid bolus. His CBC was unremarkable. BMP showed mild hyponatremia 134 otherwise unremarkable. And it was negative. 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 Digoxin level was negative. Chest x-ray was clear no acute finding. Patient was given digoxin in the emergency room. His heart rate is better controlled now. It looks like his pacemaker is not capturing. Patient was admitted to the hospitalfor observation with telemetry. Doing Good No complaint No dizziness NO chest pain or SOB Exam Physical Exam Vital Signs: Temp Pulse Resp BP Pulse Ox O2 Del Method 98.9 F 79 18 129/78 95 Room Air 02/05/23 11:53 02/05/23 07:55 02/05/23 11:53 02/05/23 11:53 02/05/23 11:53 02/05/23 12:00 Narrative: General patient laying in bed in no acute distress alert awake oriented x3 HEENT PERRLA Neck supple no JVD no carotid bruit CVS S1-S2 irregular rate and rhythm no murmur no gallop Chest clear to auscultation percussion Abdomen soft bowel sounds normoactive no rebound no guarding Extremities no stenosis no clubbing no edema Musculoskeletal exam normal no joint effusion Neurologic exam oriented x3 alert awake no focal left Psychiatry: Normal insight and judgment Objective Lab Results 02/02/23 11:35 02/03/23 06:27 Meds Allergies and Active Meds Allergies No Known Allergies Allergy (Verified 02/02/23 11:51) Active Meds: Active Medications Generic Name Dose Route Start Last Admin Trade Name Freq PRN Reason Stop Dose Admin Acetaminophen 650 mg 02/02/23 15:27 Acetaminophen 325 Mg Tablet PO 02/02/24 15:26 Q6HR PRN Pain Scale 1 - 3 or fever Apixaban 5 mg 02/02/23 21:00 02/05/23 08:03 Apixaban 5 Mg Tablet PO 02/02/24 20:59 5 mg BID ROBERTO Administration Bisacodyl 10 mg 02/02/23 15:27 Bisacodyl 5 Mg Tablet.Dr PO 02/02/24 15:26 DAILY PRN Constipation Diltiazem HCl 120 mg 02/04/23 13:00 02/05/23 08:02 Diltiazem Cd.24hr 120 Mg Cap.Er.24h PO 02/04/24 12:59 120 mg DAILY ROBERTO Administration Flecainide Acetate 50 mg 02/03/23 21:00 02/05/23 08:03 Flecainide Acetate 50 Mg Tablet PO 02/03/24 20:59 50 mg BID ROBERTO Administration Glipizide 10 mg 02/02/23 17:00 02/05/23 08:07 Glipizide 5 Mg Tablet PO 02/02/24 16:59 10 mg BID.WITH.MEALS ROBERTO Administration Diltiazem HCl 100 mg in 100 mls @ 5 mls/hr 02/03/23 09:30 02/04/23 16:44 Cardizem IV 02/03/24 09:29 0 mg/hr .Q20H ROBERTO 0 mls/hr Titration Protocol 5 MG/HR Sodium Chloride 1,000 mls @ 20 mls/hr 02/03/23 09:30 02/04/23 16:44 0.9% Sodium Chloride 1,000 Ml IV 02/03/24 09:29 Not Given .Q24H ROBERTO Linagliptin 5 mg 02/03/23 09:00 02/05/23 08:06 Linagliptin 5 Mg Tablet PO 02/03/24 08:59 5 mg DAILY ROBERTO Administration Melatonin 5 mg 02/02/23 15:27 02/04/23 20:26 Melatonin 5 Mg Tablet PO 02/02/24 15:26 5 mg QHS PRN Administration Insomnia Metformin HCl 1,000 mg 02/03/23 08:00 02/05/23 08:07 Metformin 500 Mg Tablet PO 02/03/24 07:59 1,000 mg DAILY.WITH.BKFAST ROBERTO Administration Ondansetron HCl 4 mg 02/02/23 15:27 Ondansetron 4 Mg/2 Ml Vial IV-PUSH 02/02/24 15:26 Q8H PRN Nausea And Vomiting Pioglitazone HCl 30 mg 02/03/23 09:00 02/05/23 08:03 Pioglitazone 30 Mg Tablet PO 02/03/24 08:59 30 mg DAILY ROBERTO Administration Pravastatin Sodium 80 mg 02/03/23 09:00 02/05/23 08:04 Pravastatin 40 Mg Tablet PO 02/03/24 08:59 80 mg DAILY ROBERTO Administration Sodium Chloride 0 ml 02/02/23 11:50 02/02/23 12:21 Sodium Chloride 0.9 % 10 Ml Syringe IV-PUSH 02/02/24 11:49 10 ml PRN PRN Administration Flush A&P - Hospitalist Assessment/Plan (1) Tachyarrhythmia: (2) Tachy-rosette syndrome: (3) Diabetes type 2, controlled: (4) Hyperlipemia: Plan 78-year-old white male past medical history of obesity, hypertension, diabetes type 2, hyperlipidemia, A-fib, sick sinus syndrome syndrome, status post pacemaker, who presents to emergency room from his primary care physician officefor evaluation for generalized weakness, exertional dyspnea, and hypotension andtachycardia in the office. Has a routine work-up which showed magnesium 1.4 anddigoxin was undetectable. Patient been feeling weak for the last 3 days. He isbeing dizzy. He has been complaining of exertional dyspnea. No orthopnea or PND. No chest pain. No cough. No fever or chills. He denies any nausea vomiting. No abdominal pain. No diarrhea. He denies having dysuria, hematuria, or frequency. Upon presentation to emergency room he did have regular wide complex tachycardia. Patient was given small dose of Lopressor. His QTwas prolonged and he was given 2 g of magnesium and a small IV fluid bolus. HisCBC was unremarkable. BMP showed mild hyponatremia 134 otherwise unremarkable. And it was negative. 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 Digoxin level was negative. Chest x-ray was clear no acute finding. Patient was given digoxin inthe emergency room. His heart rate is better controlled now. It looks like hispacemaker is not capturing. Patient was admitted to the hospital for observation with telemetry. IMP Tachybradycardia syndrome Generalized weakness Hypotension Seen and examined Clinically stable On sinus rhythm No complaints Off Cardizem infusion Started on Flecainide PT/OT recommended SNF Plan to discharge to SNF Social service consult for discharge planning Sick sinus syndrome status post pacemaker: As above Obesity: Lifestyle modification Hypertension: Hold losartan and Cardizem due to hypotension Diabetes type 2: Accu-Chek ACHS/insulin sliding scale/resume glipizide and metformin Hyperlipidemia: Resume statin PT OT evaluation DC planning : Home when OK with cardiology Documented By: Jennifer Cruz MD 02/05/23 1238 Signed By: <Electronically signed by Jennifer Cruz MD> 02/05/23 1239 [facility] Work Phone: 1([phone] 156-407711-24-2023 Progress note Author Samra Garza [facility] February 05, 2023 12:16pm Note Date/Time February 05, 2023 12:16pm [facility] [address] [place] [address] Cardiology Progress Note Signed Patient: Tadeo Thomas MR#: [id number] : 1945 Acct:[id number] Age/Sex: 78 / M Adm Date: 3 Loc: Room: [address] [place] [address] Type: ADM IN Attending Dr: Jennifer Cruz MD Copies to: ~ Date of Service: 02/05/2023 Subjective Interval history: Patient without complaint. Remain in normal sinus rhythm. Occasional PACs. Nofurther tachyarrhythmia Exam Physical Exam Vital Signs: Temp Pulse Resp BP Pulse Ox O2 Del Method 98.9 F 79 18 129/78 95 Room Air 02/05/23 11:53 02/05/23 07:55 02/05/23 11:53 02/05/23 11:53 02/05/23 11:53 02/05/23 11:53 Eyes General: appearance normal, both eyes and all related structures Pupils: PERRL Neck Neck: normal visual inspection, supple and no lymphadenopathy noted Neck mass: No Thyroid: thyroid normal Carotids: normal carotid upstroke Chest Chest palpation & inspection: normal inspection of the chest Resp Effort & Inspection: normal respiratory effort Auscultation: clear to auscultation bilaterally Cardio Palpation: normal PMI Rate: regular rate and tachycardic Rhythm: regular rhythm Heart Sounds: S1 normal and S2 normal GI Palpation: soft and no hepatosplenomegaly Percussion: normal to percussion Auscultation: normal bowel sounds Extrem General: full ROM, capillary refill normal and no clubbing, cyanosis or edema Psych Mental Status: mental status grossly normal Objective Labs 02/02/23 11:35 02/03/23 06:27 A&P - Cardiology (1) Tachyarrhythmia: Code(s): R00.0 - Tachycardia, unspecified Status: Acute Plan Assessment 1. Symptoms of fatigue, tiredness and borderline low blood pressure triggered by tachycardia likely atrial flutter with 2/1 AV block. Patient currently in sinus but still on IV Cardizem 2. History of tachybradycardia syndrome 3. Hypertension 4. Dementia 5. Diabetes mellitus 6. Hyperlipidemia 7. Patient and his report poor tolerance to beta-josefa Plan 1. Continue present medical regimen 2. Patient can be discharged home on flecainide and oral Cardizem 3. Continue anticoagulation 4. If tachyarrhythmia persist consideration for outpatient EP evaluation for possible ablation Documented By: Samra Garza MD 02/05/231215 Signed By: <Electronically signed by MD Samar Garza> 02/05/[address] [place] [address] Work Phone: 1(162) 282-759311-23-2023 Progress note Author Samra Garza [facility] February 04, 2023 11:52am Note Date/Time February 04, 2023 11:52am [facility] [address] [place] [address] Cardiology Progress Note Signed Patient: Tadeo Thomas MR#: [id number] : 1945 Acct:[id number] Age/Sex: 78 / M Adm Date: 3 Loc: Room: [address] [place] [address] Type: ADM IN Attending Dr: Jennifer Cruz MD Copies to: ~ Date of Service: 02/04/2023 Subjective Interval history: Patient without complaint. Rhythm appears mainly sinus with occasional burst ofA-fib flutter Exam Physical Exam Vital Signs: Temp Pulse Resp BP Pulse Ox O2 Del Method 97.6 F 72 18 154/77 H 96 Room Air 02/04/23 07:49 02/04/23 07:49 02/04/23 07:49 02/04/23 07:49 02/04/23 07:49 02/04/23 08:00 HEENT Head: atraumatic Mouth: oral mucosae normal Neck Neck: normal visual inspection, supple and no lymphadenopathy noted Neck mass: No Thyroid: thyroid normal Carotids: normal carotid upstroke Chest Chest palpation & inspection: normal inspection of the chest Resp Effort & Inspection: normal respiratory effort Auscultation: clear to auscultation bilaterally Cardio Palpation: normal PMI Rate: regular rate and tachycardic Rhythm: regular rhythm Heart Sounds: S1 normal and S2 normal GI Palpation: soft and no hepatosplenomegaly Percussion: normal to percussion Auscultation: normal bowel sounds Skin General: no rashes or lesions noted and dry skin Extrem General: full ROM, capillary refill normal and no clubbing, cyanosis or edema Objective Labs 02/02/23 11:35 02/03/23 06:27 A&P - Cardiology (1) Tachyarrhythmia: Code(s): R00.0 - Tachycardia, unspecified Status: Acute Plan Assessment 1. Symptoms of fatigue, tiredness and borderline low blood pressure triggered by tachycardia likely atrial flutter with 2/1 AV block. Patient currently in sinus but still on IV Cardizem 2. History of tachybradycardia syndrome 3. Hypertension 4. Dementia 5. Diabetes mellitus 6. Hyperlipidemia 7. Patient and his report poor tolerance to beta-josefa Plan 1. Wean off IV Cardizem 2. Continue flecainide and oral Cardizem 3. Continue anticoagulation 4. If tachyarrhythmia persist consideration for outpatient EP evaluation for possible ablation Documented By: Samra Garza MD 02/04/23 1150 Signed By: <Electronically signed by MD Samra Garza> 02/04/23 1152 [facility] Work Phone: 1(722) 253-148411-23-2023 Progress note Author Jennifer Cruz [facility] February 04, 2023 9:54am Note Date/Time February 04, 2023 9:54am [facility] [address] [place] [address] Hospitalist Progress Note Signed Patient: Tadeo Thomas MR#: [id number] : 1945 Acct:[id number] Age/Sex: 78 / M Adm Date: 3 Loc: 3T Room: [address] [place] [address] Type: ADM IN Attending Dr: Jennifer Cruz MD Copies to: ~ Date of Service: 02/04/2023 Subjective Subjective Narrative: 78-year-old white male past medical history of obesity, hypertension, diabetes type 2, hyperlipidemia, A-fib, sick sinus syndrome syndrome, status post pacemaker, who presents to emergency room from his primary care physician officefor evaluation for generalized weakness, exertional dyspnea, and hypotension andtachycardia in the office. Has a routine work-up which showed magnesium 1.4 anddigoxin was undetectable. Patient been feeling weak for the last 3 days. He isbeing dizzy. He has been complaining of exertional dyspnea. No orthopnea or PND. No chest pain. No cough. No fever or chills. He denies any nausea vomiting. No abdominal pain. No diarrhea. He denies having dysuria, hematuria, or frequency. Upon presentation to emergency room he did have regular wide complex tachycardia. Patient was given small dose of Lopressor. His QT was prolonged and he was given 2 g of magnesium and a small IV fluid bolus. His CBC was unremarkable. BMP showed mild hyponatremia 134 otherwise unremarkable. And it was negative. 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 Digoxin level was negative. Chest x-ray was clear no acute finding. Patient was given digoxin in the emergency room. His heart rate is better controlled now. It looks like his pacemaker is not capturing. Patient was admitted to the hospitalfor observation with telemetry. Doing Good No complaint No dizziness NO chest pain or SOB Exam Physical Exam Vital Signs: Temp Pulse Resp BP Pulse Ox O2 Del Method 97.6 F 72 18 154/77 H 96 Room Air 02/04/23 07:49 02/04/23 07:49 02/04/23 07:49 02/04/23 07:49 02/04/23 07:49 02/04/23 08:00 Narrative: General patient laying in bed in no acute distress alert awake oriented x3 HEENT PERRLA Neck supple no JVD no carotid bruit CVS S1-S2 irregular rate and rhythm no murmur no gallop Chest clear to auscultation percussion Abdomen soft bowel sounds normoactive no rebound no guarding Extremities no stenosis no clubbing no edema Musculoskeletal exam normal no joint effusion Neurologic exam oriented x3 alert awake no focal left Psychiatry: Normal insight and judgment Objective Lab Results 02/02/23 11:35 02/03/23 06:27 Meds Allergies and Active Meds Allergies No Known Allergies Allergy (Verified 02/02/23 11:51) Active Meds: Active Medications Generic Name Dose Route Start Last Admin Trade Name Freq PRN Reason Stop Dose Admin Acetaminophen 650 mg 02/02/23 15:27 Acetaminophen 325 Mg Tablet PO 02/02/24 15:26 Q6HR PRN Pain Scale 1 - 3 or fever Apixaban 5 mg 02/02/23 21:00 02/04/23 08:23 Apixaban 5 Mg Tablet PO 02/02/24 20:59 5 mg BID ROBERTO Administration Bisacodyl 10 mg 02/02/23 15:27 Bisacodyl 5 Mg Tablet.Dr PO 02/02/24 15:26 DAILY PRN Constipation Flecainide Acetate 50 mg 02/03/23 21:00 02/04/23 08:23 Flecainide Acetate 50 Mg Tablet PO 02/03/24 20:59 50 mg BID ROBERTO Administration Glipizide 10 mg 02/02/23 17:00 02/04/23 08:23 Glipizide 5 Mg Tablet PO 02/02/24 16:59 10 mg BID.WITH.MEALS ROBERTO Administration Diltiazem HCl 100 mg in 100 mls @ 5 mls/hr 02/03/23 09:30 02/03/23 22:43 Cardizem IV 02/03/24 09:29 5 mg/hr .Q20H ROBERTO 5 mls/hr Administration Protocol 5 MG/HR Sodium Chloride 1,000 mls @ 20 mls/hr 02/03/23 09:30 02/03/23 10:01 0.9% Sodium Chloride 1,000 Ml IV 02/03/24 09:29 20 mls/hr .Q24H ROBERTO Administration Linagliptin 5 mg 02/03/23 09:00 02/04/23 08:23 Linagliptin 5 Mg Tablet PO 02/03/24 08:59 5 mg DAILY ROBERTO Administration Melatonin 5 mg 02/02/23 15:27 02/02/23 21:08 Melatonin 5 Mg Tablet PO 02/02/24 15:26 5 mg QHS PRN Administration Insomnia Metformin HCl 1,000 mg 02/03/23 08:00 02/04/23 08:23 Metformin 500 Mg Tablet PO 02/03/24 07:59 1,000 mg DAILY.WITH.BKFAST ROBERTO Administration Ondansetron HCl 4 mg 02/02/23 15:27 Ondansetron 4 Mg/2 Ml Vial IV-PUSH 02/02/24 15:26 Q8H PRN Nausea And Vomiting Pioglitazone HCl 30 mg 02/03/23 09:00 02/04/23 08:23 Pioglitazone 30 Mg Tablet PO 02/03/24 08:59 30 mg DAILY ROBERTO Administration Pravastatin Sodium 80 mg 02/03/23 09:00 02/04/23 08:23 Pravastatin 40 Mg Tablet PO 02/03/24 08:59 80 mg DAILY ROBERTO Administration Sodium Chloride 0 ml 02/02/23 11:50 02/02/23 12:21 Sodium Chloride 0.9 % 10 Ml Syringe IV-PUSH 02/02/24 11:49 10 ml PRN PRN Administration Flush A&P - Hospitalist Assessment/Plan (1) Tachyarrhythmia: (2) Tachy-rosette syndrome: (3) Diabetes type 2, controlled: (4) Hyperlipemia: Plan 78-year-old white male past medical history of obesity, hypertension, diabetes type 2, hyperlipidemia, A-fib, sick sinus syndrome syndrome, status post pacemaker, who presents to emergency room from his primary care physician officefor evaluation for generalized weakness, exertional dyspnea, and hypotension andtachycardia in the office. Has a routine work-up which showed magnesium 1.4 anddigoxin was undetectable. Patient been feeling weak for the last 3 days. He isbeing dizzy. He has been complaining of exertional dyspnea. No orthopnea or PND. No chest pain. No cough. No fever or chills. He denies any nausea vomiting. No abdominal pain. No diarrhea. He denies having dysuria, hematuria, or frequency. Upon presentation to emergency room he did have regular wide complex tachycardia. Patient was given small dose of Lopressor. His QT was prolonged and he was given 2 g of magnesium and a small IV fluid bolus. His CBC was unremarkable. BMP showed mild hyponatremia 134 otherwise unremarkable. And it was negative. 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 Digoxin level was negative. Chest x-ray was clear no acute finding. Patient was given digoxin in the emergency room. His heart rate is better controlled now. It looks like his pacemaker is not capturing. Patient was admitted to the hospitalfor observation with telemetry. IMP Tachybradycardia syndrome Generalized weakness Hypotension Seen and examined Clinically stable No complaints HR is better controlled Still on Cardizem infusion Started on Flecainide Serial ECG Cardiology is folliwng Sick sinus syndrome status post pacemaker: As above Obesity: Lifestyle modification Hypertension: Hold losartan and Cardizem due to hypotension Diabetes type 2: Accu-Chek ACHS/insulin sliding scale/resume glipizide and metformin Hyperlipidemia: Resume statin PT OT evaluation DC planning : Home when OK with cardiology Documented By: Jennifer Cruz MD 02/04/23 0952 Signed By: <Electronically signed by Jennifer Cruz MD> 02/04/23 0954 [facility] Work Phone: 1(419) 374-393611-22-2023 Progress note Author Jennifer Cruz [facility] February 03, 2023 10:49am Note Date/Time February 03, 2023 10:48am [facility] [address] [place] [address] Hospitalist Progress Note Signed Patient: Tadeo Thomas MR#: [id number] : 1945 Acct:[id number] Age/Sex: 78 / M Adm Date: 3 Loc: Room: [address] [place] [address] Type: ADM INOo Attending Dr: Jennifer Cruz MD Copies to: ~ Date of Service: 02/03/2023 Subjective Subjective Narrative: 78-year-old white male past medical history of obesity, hypertension, diabetes type 2, hyperlipidemia, A-fib, sick sinus syndrome syndrome, status post pacemaker, who presents to emergency room from his primary care physician officefor evaluation for generalized weakness, exertional dyspnea, and hypotension andtachycardia in the office. Has a routine work-up which showed magnesium 1.4 anddigoxin was undetectable. Patient been feeling weak for the last 3 days. He isbeing dizzy. He has been complaining of exertional dyspnea. No orthopnea or PND. No chest pain. No cough. No fever or chills. He denies any nausea vomiting. No abdominal pain. No diarrhea. He denies having dysuria, hematuria, or frequency. Upon presentation to emergency room he did have regular wide complex tachycardia. Patient was given small dose of Lopressor. His QT was prolonged and he was given 2 g of magnesium and a small IV fluid bolus. His CBC was unremarkable. BMP showed mild hyponatremia 134 otherwise unremarkable. And it was negative. 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 Digoxin level was negative. Chest x-ray was clear no acute finding. Patient was given digoxin in the emergency room. His heart rate is better controlled now. It looks like his pacemaker is not capturing. Patient was admitted to the hospitalfor observation with telemetry. Doing better No complaint No chest pain or shortness of breath Heart rate is better controlled No dizziness Exam Physical Exam Vital Signs: Temp Pulse Resp BP Pulse Ox O2 Del Method 97.4 F L 74 18 145/74 H 96 Room Air 02/03/23 08:29 02/03/23 09:47 02/03/23 08:29 02/03/23 09:47 02/03/23 08:29 02/03/23 08:31 Narrative: General patient laying in bed in no acute distress alert awake oriented x3 HEENT PERRLA Neck supple no JVD no carotid bruit CVS S1-S2 irregular rate and rhythm no murmur no gallop Chest clear to auscultation percussion Abdomen soft bowel sounds normoactive no rebound no guarding Extremities no stenosis no clubbing no edema Musculoskeletal exam normal no joint effusion Neurologic exam oriented x3 alert awake no focal left Psychiatry: Normal insight and judgment Objective Lab Results 02/02/23 11:35 02/03/23 06:27 Meds Allergies and Active Meds Allergies No Known Allergies Allergy (Verified 02/02/23 11:51) Active Meds: Active Medications Generic Name Dose Route Start Last Admin Trade Name Freq PRN Reason Stop Dose Admin Acetaminophen 650 mg 02/02/23 15:27 Acetaminophen 325 Mg Tablet PO 02/02/24 15:26 Q6HR PRN Pain Scale 1 - 3 or fever Apixaban 5 mg 02/02/23 21:00 02/03/23 08:36 Apixaban 5 Mg Tablet PO 11/20/24 20:59 5 mg BID ROBERTO Administration Bisacodyl 10 mg 02/02/23 15:27 Bisacodyl 5 Mg Tablet.Dr PO 02/02/24 15:26 DAILY PRN Constipation Flecainide Acetate 50 mg 02/03/23 10:38 Flecainide Acetate 50 Mg Tablet PO 02/03/23 10:39 ONCE ONE Flecainide Acetate 50 mg 02/03/23 21:00 Flecainide Acetate 50 Mg Tablet PO 02/03/24 20:59 BID ROBERTO Glipizide 10 mg 02/02/23 17:00 02/03/23 08:36 Glipizide 5 Mg Tablet PO 02/02/24 16:59 10 mg BID.WITH.MEALS ROBERTO Administration Diltiazem HCl 100 mg in 100 mls @ 5 mls/hr 02/03/23 09:30 02/03/23 09:47 Cardizem IV 02/03/24 09:29 5 mg/hr .Q20H ROBERTO 5 mls/hr Administration Protocol 5 MG/HR Sodium Chloride 1,000 mls @ 20 mls/hr 02/03/23 09:30 02/03/23 10:01 0.9% Sodium Chloride 1,000 Ml IV 02/03/24 09:29 20 mls/hr .Q24H ROBERTO Administration Linagliptin 5 mg 02/03/23 09:00 02/03/23 08:36 Linagliptin 5 Mg Tablet PO 02/03/24 08:59 5 mg DAILY ROBERTO Administration Melatonin 5 mg 02/02/23 15:27 02/02/23 21:08 Melatonin 5 Mg Tablet PO 02/02/24 15:26 5 mg QHS PRN Administration Insomnia Metformin HCl 1,000 mg 02/03/23 08:00 02/03/23 08:36 Metformin 500 Mg Tablet PO 02/03/24 07:59 1,000 mg DAILY.WITH.BKFAST ROBERTO Administration Ondansetron HCl 4 mg 02/02/23 15:27 Ondansetron 4 Mg/2 Ml Vial IV-PUSH 02/02/24 15:26 Q8H PRN Nausea And Vomiting Pioglitazone HCl 30 mg 02/03/23 09:00 02/03/23 08:36 Pioglitazone 30 Mg Tablet PO 02/03/24 08:59 30 mg DAILY ROBERTO Administration Pravastatin Sodium 80 mg 02/03/23 09:00 02/03/23 08:37 Pravastatin 40 Mg Tablet PO 02/03/24 08:59 80 mg DAILY ROBERTO Administration Sodium Chloride 0 ml 02/02/23 11:50 02/02/23 12:21 Sodium Chloride 0.9 % 10 Ml Syringe IV-PUSH 02/02/24 11:49 10 ml PRN PRN Administration Flush A&P - Hospitalist Assessment/Plan (1) Tachyarrhythmia: (2) Tachy-rosette syndrome: (3) Diabetes type 2, controlled: (4) Hyperlipemia: Plan 78-year-old white male past medical history of obesity, hypertension, diabetes type 2, hyperlipidemia, A-fib, sick sinus syndrome syndrome, status post pacemaker, who presents to emergency room from his primary care physician officefor evaluation for generalized weakness, exertional dyspnea, and hypotension andtachycardia in the office. Has a routine work-up which showed magnesium 1.4 anddigoxin was undetectable. Patient been feeling weak for the last 3 days. He isbeing dizzy. He has been complaining of exertional dyspnea. No orthopnea or PND. No chest pain. No cough. No fever or chills. He denies any nausea vomiting. No abdominal pain. No diarrhea. He denies having dysuria, hematuria, or frequency. Upon presentation to emergency room he did have regular wide complex tachycardia. Patient was given small dose of Lopressor. His QT was prolonged and he was given 2 g of magnesium and a small IV fluid bolus. His CBC was unremarkable. BMP showed mild hyponatremia 134 otherwise unremarkable. And it was negative. 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 Digoxin level was negative. Chest x-ray was clear no acute finding. Patient was given digoxin in the emergency room. His heart rate is better controlled now. It looks like his pacemaker is not capturing. Patient was admitted to the hospitalfor observation with telemetry. IMP Tachybradycardia syndrome Generalized weakness Hypotension Seen and examined Clinically better Heart rate is better controlled Seen by cardiology Digoxin was stopped On Cardizem infusion at 5 mg/h Started on flecainide Changed to inpatient status PT OT evaluation Sick sinus syndrome status post pacemaker: As above Obesity: Lifestyle modification Hypertension: Hold losartan and Cardizem due to hypotension Diabetes type 2: Accu-Chek ACHS/insulin sliding scale/resume glipizide and metformin Hyperlipidemia: Resume statin PT OT evaluation Documented By: Jennifer Cruz MD 02/03/23 1046 Signed By: <Electronically signed by Jennifer Cruz MD> 02/03/23 1049 [facility] Work Phone: 1(496) 213-564711-22-2023 Consult note Author Samra Garza [facility] February 03, 2023 10:37am Note Date/Time February 03, 2023 10:14am [facility] [address] [place], [place] [id number] Cardiology Consult Note Signed Patient: Tadeo Thomas MR#: [id number] : 1945 Acct:[id number] Age/Sex: 78 / M Adm Date: 3 Loc: Room: [address] [place] [address] Type: ADM INOo Attending Dr: Jennifer Cruz MD Copies to: MD Samra Guerin MD Robert L Hill, MD~ Cardiology HPI History of Present Illness Consult Date: 02/03/23 Reason for Consult: Cardiac consultation requested for evaluation for tachycardia HPI: Mr. Thomas is a 78 year old male with known history of paroxysmal atrial flutter and tachybradycardia syndrome and underwent pacemaker implantation back in September. His tachycardia treated initially with metoprolol but during recent office visit the patient was complaining of being fatigued and tired and he was switched to combination of digoxin and diltiazem. The patient was sent from hisfamily physician's office because of observation of tachycardia and borderline hypotension. Patient appears fatigued and tired. On presentation he was noted to be tachycardic. Available EKG highly suggestive of atrial flutter with 221 AV block. Pacemaker checked and demonstrated appropriate device function. There is no evidence of pacemaker mediated tachycardia. At the time of evaluation the patient reported improvement however he remains intermittently tachycardic and again rhythm strips highly suggestive of atrial flutter with 221AV block. The patient denies previous history of coronary arteries, congestive heart failure or valvular heart disease. During his previous evaluation his echocardiogram showed normal LV systolic function. At the time my evaluation the patient remains in tachycardic rhythm that appears to be atrial flutter. The patient appears relatively poor historian and he does carry the diagnosis ofdementia Review of Systems Constitutional Constitutional: Reports fatigue and Reports weakness Eyes Eyes: Reports system reviewed and no additional complaints, except as documented ENT Ears, Nose, Mouth, and Throat: Reports system reviewed and no additional complaints, except as documented Cardiovascular Cardiovascular: Reports dyspnea on exertion Respiratory Respiratory: Reports system reviewed and no additional complaints, except as documented Gastrointestinal Gastrointestinal: Reports system reviewed and no additional complaints, except as documented Genitourinary Genitourinary: Reports system reviewed and no additional complaints, except as documented Musculoskeletal Musculoskeletal: Reports system reviewed and no additional complaints, except asdocumented Integumentary/Breasts Skin/Breast: Reports system reviewed and no additional complaints, except as documented Neurologic Neurologic: Reports system reviewed and no additional complaints, except as documented Psychiatric Psychiatric: Reports system reviewed and no additional complaints, except as documented Endocrine Endocrine: Reports system reviewed and no additional complaints, except as documented Hematologic/Lymphatic Hematologic/Lymphatic: Reports system reviewed and no additional complaints, except as documented Allergic/Immunologic Allergic/Immunologic: Reports system reviewed and no additional complaints, except as documented [facility] Medical History Dementia Diabetes HTN (hypertension) Pacemaker Family History Father Dementia Diabetes Brother Diabetes Social History Smoking Status: Former smoker Tobacco Type: cigarettes Substance Use Type: None Meds Medications and Allergies Allergies No Known Allergies Allergy (Verified 02/02/23 11:51) Home Medications alogliptin 25 mg tablet 25 mg PO DAILY 09/14/22 [History Confirmed 02/02/23] pioglitazone 30 mg tablet 30 mg PO DAILY 09/14/22 [History Confirmed 02/02/23] pravastatin 80 mg tablet 80 mg PO DAILY 09/14/22 [History Confirmed 02/02/23] digoxin 125 mcg (0.125 mg) tablet 125 mcg PO DAILY 30 days #30 tabs 09/18/22 [Rx Confirmed 02/02/23] apixaban 5 mg tablet 5 mg PO BID 02/02/23 [History Confirmed 02/02/23] diltiazem HCl 30 mg tablet 120 mg PO DAILY 02/02/23 [History Confirmed 02/02/23] glipizide 10 mg tablet 10 mg PO BID 02/02/23 [History Confirmed 02/02/23] metformin 1,000 mg tablet 1,000 mg PO DAILY 02/02/23 [History Confirmed 02/02/23] Exam Physical Exam Vital Signs: Temp Pulse Resp BP Pulse Ox O2 Del Method 97.4 F L 74 18 145/74 H 96 Room Air 02/03/23 08:29 02/03/23 09:47 02/03/23 08:29 02/03/23 09:47 02/03/23 08:29 02/03/23 08:31 Const General: cooperative, comfortable, no acute distress and well developed HEENT Head: atraumatic Mouth: oral mucosae normal Eyes General: appearance normal, both eyes and all related structures Pupils: PERRL Neck Neck: normal visual inspection, supple and no lymphadenopathy noted Neck mass: No Thyroid: thyroid normal Carotids: normal carotid upstroke Chest Chest palpation & inspection: normal inspection of the chest Resp Effort & Inspection: normal respiratory effort Auscultation: clear to auscultation bilaterally Cardio Palpation: normal PMI Rate: regular rate and tachycardic Rhythm: regular rhythm Heart Sounds: S1 normal and S2 normal GI Palpation: soft and no hepatosplenomegaly Percussion: normal to percussion Auscultation: normal bowel sounds Skin General: no rashes or lesions noted and dry skin Neuro General: patient alert, patient awake, patient oriented x3, tone normal and moves all extremities Extrem General: full ROM, capillary refill normal and no clubbing, cyanosis or edema Psych Mental Status: mental status grossly normal Results Labs 02/02/23 11:35 02/03/23 06:27 Lab results: Cardiac Enzymes 02/02/23 02/02/23 Range/Units 11:35 11:35 AST 17 (13-39) U/L B-Natriuretic Peptide 427.0 H (5-100) pg/mL CBC 02/02/23 Range/Units 11:35 RBC 3.26 L (3.90-5.60) X10E6/uL Hgb 11.0 L (13.0-17.0) g/dL Hct 32.4 L (38.8-50.0) % Plt Count 227 (150-450) x10E3/uL Neut # (Auto) 5.4 (1.8-7.7) x10E3/uL Lymph # (Auto) 3.3 (1.00-4.8) x10E3/uL Clinch # (Auto) 0.4 (0.0-0.8) x10E3/uL Eos # (Auto) 0.0 (0.0-0.45) x10E3/uL Baso # (Auto) 0.0 (0.0-0.2) x10E3/uL Comprehensive Metabolic Panel 02/02/23 02/03/23 Range/Units 11:35 06:27 Sodium 134 L 142 D (136-145) mmol/L Potassium 4.2 3.7 (3.5-5.1) mmol/L Chloride 105 104 (98-107) mmol/L Carbon Dioxide 26.5 30.7 (21.0-31.0) mmol/L BUN 24 17 (7-25) mg/dL Creatinine 0.99 0.81 (0.70-1.30) mg/dL Glucose 227 H 92 D (70-100) mg/dL Calcium 9.0 8.3 L (8.6-10.3) mg/dL AST 17 (13-39) U/L ALT 18 (7-52) U/L Alkaline Phosphatase 74 (34-104) U/L Total Protein 6.6 (6.4-8.9) gm/dL Albumin 3.7 (3.5-5.7) gm/dL Intake and Output 02/02/23 02/03/23 02/03/23 23:59 07:59 15:59 Intake Total 100 / 650 300 / 300 Balance 100 / 650 300 / 300 Intake: Oral 100 / 100 300 / 300 Other: # Unmeasured Voids 2 Weight 72.8 kg Date of Last Bowel Movement 02/02/23 02/02/23 Patient Weight 02/03/23 23:59 Weight 72.8 kg EKG Interpretations EKG Attestation EKG: I reviewed this ECG and interpreted as documented below: (EKG showed tachycardia with heart rate around 130 with right bundle branch block morphology. Rhythm likely to be atrial flutter less likely SVT) A&P - Cardiology (1) Tachyarrhythmia: Code(s): R00.0 - Tachycardia, unspecified Plan Assessment 1. Symptoms of fatigue, tiredness and borderline low blood pressure triggered by tachycardia likely atrial flutter with 221 AV block 2. History of tachybradycardia syndrome 3. Hypertension 4. Dementia 5. Diabetes mellitus 6. Hyperlipidemia 7. Patient and his report poor tolerance to beta-josefa Plan 1. For the time being we will initiate heart rate control with IV Cardizem 2. I discussed treatment option with the patient and his at great length. Will initiate antiarrhythmic in form of flecainide 50 mg twice daily on the longrun we will continue diltiazem discontinue digoxin 3. Continue anticoagulation 4. If tachyarrhythmia persist consideration for outpatient EP evaluation for possible ablation Documented By: Samra Garza MD 02/03/23 1011 Signed By: <Electronically signed by MD Samra Garza> 02/03/23 1037 [facility] Work Phone: 1(632) 285-837411-21-2023 History and physical note Author Jennifer Cruz [facility] February 02, 2023 3:44pm Note Date/Time February 02, 2023 3:44pm [facility] [address] [place] [address] Hospitalist H&P Signed Patient: Tadeo Thomas MR#: [id number] : 1945 Acct:[id number] Age/Sex: 78 / M Adm Date: 3 Loc: Room: [address] [place] [address] Type: ADM INOo Attending Dr: Jennifer Cruz MD Copies to: MD Aracelis Guerin MD~ HPI DATE OF EXAMINATION: 02/02/23 CHIEF COMPLAINT: Generalized weakness HISTORY OF PRESENT ILLNESS: 78-year-old white male past medical history of obesity, hypertension, diabetes type 2, hyperlipidemia, A-fib, sick sinus syndrome syndrome, status post pacemaker, who presents to emergency room from his primary care physician officefor evaluation for generalized weakness, exertional dyspnea, and hypotension andtachycardia in the office. Has a routine work-up which showed magnesium 1.4 anddigoxin was undetectable. Patient been feeling weak for the last 3 days. He isbeing dizzy. He has been complaining of exertional dyspnea. No orthopnea or PND. No chest pain. No cough. No fever or chills. He denies any nausea vomiting. No abdominal pain. No diarrhea. He denies having dysuria, hematuria, or frequency. Upon presentation to emergency room he did have regular wide complex tachycardia. Patient was given small dose of Lopressor. His QT was prolonged and he was given 2 g of magnesium and a small IV fluid bolus. His CBC was unremarkable. BMP showed mild hyponatremia 134 otherwise unremarkable. And it was negative. 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 Digoxin level was negative. Chest x-ray was clear no acute finding. Patient was given digoxin in the emergency room. His heart rate is better controlled now. It looks like his pacemaker is not capturing. Patient was admitted to the hospitalfor observation with telemetry. Review of Systems Review of Systems All other systems reviewed & are negative unless noted below or in HPI [facility] Medical History (Updated 02/02/23 @ 15:40 by Jennifer Cruz MD) Diabetes HTN (hypertension) Pacemaker Social History Smoking Status: Former smoker Tobacco Type: cigarettes Substance Use Type: None Meds Medications and Allergies Allergies No Known Allergies Allergy (Verified 02/02/23 11:51) Home Medications alogliptin 25 mg tablet 25 mg PO DAILY 09/14/22 [History Confirmed 02/02/23] losartan 25 mg tablet 25 mg PO DAILY 09/14/22 [History Confirmed 09/14/22] pioglitazone 30 mg tablet 30 mg PO DAILY 09/14/22 [History Confirmed 02/02/23] pravastatin 80 mg tablet 80 mg PO DAILY 09/14/22 [History Confirmed 02/02/23] digoxin 125 mcg (0.125 mg) tablet 125 mcg PO DAILY 30 days #30 tabs 09/18/22 [Rx Confirmed 02/02/23] metoprolol succinate 50 mg tablet,extended release 24 hr 50 mg PO DAILY 30 days #30 tabs 09/18/22 [Rx] apixaban 5 mg tablet 5 mg PO BID 02/02/23 [History Confirmed 02/02/23] diltiazem HCl 30 mg tablet 120 mg PO DAILY 02/02/23 [History Confirmed 02/02/23] glipizide 10 mg tablet 10 mg PO BID 02/02/23 [History Confirmed 02/02/23] metformin 1,000 mg tablet 1,000 mg PO DAILY 02/02/23 [History Confirmed 02/02/23] Exam Physical Exam Vital Signs: Temp Pulse Resp BP Pulse Ox O2 Del Method 98.1 F 78 18 119/73 99 Room Air 02/02/23 11:50 02/02/23 14:19 02/02/23 14:19 02/02/23 14:19 02/02/23 14:19 02/02/23 14:19 Narrative: General patient laying in bed in no acute distress alert awake oriented x3 HEENT PERRLA Neck supple no JVD no carotid bruit CVS S1-S2 irregular rate and rhythm no murmur no gallop Chest clear to auscultation percussion Abdomen soft bowel sounds normoactive no rebound no guarding Extremities no stenosis no clubbing no edema Musculoskeletal exam normal no joint effusion Neurologic exam oriented x3 alert awake no focal left Psychiatry: Normal insight and judgment Results Lab Results Labs: Laboratory Last Values Corrected WBC 9.2 X10E3/uL (4.1-10.5) 02/02/23 11:35 Uncorrected WBC Count 9.2 x10E3/uL (4.1-10.5) 02/02/23 11:35 RBC 3.26 X10E6/uL (3.90-5.60) L 02/02/23 11:35 Hgb 11.0 g/dL (13.0-17.0) L 02/02/23 11:35 Hct 32.4 % (38.8-50.0) L 02/02/23 11:35 MCV 99.1 fl (83.5-101) 02/02/23 11:35 MCH 33.5 pg (27.5-35.2) 02/02/23 11:35 MCHC 33.8 g/dL (32.5-35.6) 02/02/23 11:35 RDW 14.8 % (12.0-14.8) 02/02/23 11:35 Plt Count 227 x10E3/uL (150-450) 02/02/23 11:35 MPV 8.2 fl (6.6-10.1) 02/02/23 11:35 Neut % (Auto) 59.2 % (.) 02/02/23 11:35 Lymph % (Auto) 35.5 % (.) 02/02/23 11:35 Clinch % (Auto) 4.8 % (.) 02/02/23 11:35 Eos % (Auto) 0.2 % (.) 02/02/23 11:35 Baso % (Auto) 0.3 % (.) 02/02/23 11:35 Nucleat RBC Rel Count 0.6 /100 WBC (0-0.5) H 02/02/23 11:35 Neut # (Auto) 5.4 x10E3/uL (1.8-7.7) 02/02/23 11:35 Lymph # (Auto) 3.3 x10E3/uL (1.00-4.8) 02/02/23 11:35 Clinch # (Auto) 0.4 x10E3/uL (0.0-0.8) 02/02/23 11:35 Eos # (Auto) 0.0 x10E3/uL (0.0-0.45) 02/02/23 11:35 Baso # (Auto) 0.0 x10E3/uL (0.0-0.2) 02/02/23 11:35 Monocyte Dist Width 18.83 % (0.00-20.00) 02/02/23 11:35 PHA Creatinine Clear 63.41 02/02/23 11:35 Sodium 134 mmol/L (136-145) L 02/02/23 11:35 Potassium 4.2 mmol/L (3.5-5.1) 02/02/23 11:35 Chloride 105 mmol/L (98-107) 02/02/23 11:35 Carbon Dioxide 26.5 mmol/L (21.0-31.0) 02/02/23 11:35 Anion Gap 6.7 mEq/L (6.0-15.0) 02/02/23 11:35 BUN 24 mg/dL (7-25) 02/02/23 11:35 Creatinine 0.99 mg/dL (0.70-1.30) 02/02/23 11:35 Est GFR (CKD-EPI) > 60.0 mL/Min 02/02/23 11:35 Glucose 227 mg/dL (70-100) H 02/02/23 11:35 Calcium 9.0 mg/dL (8.6-10.3) 02/02/23 11:35 Total Bilirubin 0.5 mg/dl (0.3-1.0) 02/02/23 11:35 AST 17 U/L (13-39) 02/02/23 11:35 ALT 18 U/L (7-52) 02/02/23 11:35 Alkaline Phosphatase 74 U/L (34-104) 02/02/23 11:35 Troponin I High Sens 15.0 pg/mL (0.0-20.0) 02/02/23 11:35 B-Natriuretic Peptide 427.0 pg/mL (5-100) H 02/02/23 11:35 Total Protein 6.6 gm/dL (6.4-8.9) 02/02/23 11:35 Albumin 3.7 gm/dL (3.5-5.7) 02/02/23 11:35 Globulin 2.9 gm/dL 02/02/23 11:35 Albumin/Globulin Ratio 1.3 02/02/23 11:35 Digoxin < 0.3 ng/mL (0.9-2.0) L 02/02/23 11:35 Assessment & Plan Assessment/Plan (1) Tachyarrhythmia: (2) Tachy-rosette syndrome: (3) Diabetes type 2, controlled: (4) Hyperlipemia: Plan 78-year-old white male past medical history of obesity, hypertension, diabetes type 2, hyperlipidemia, A-fib, sick sinus syndrome syndrome, status post pacemaker, who presents to emergency room from his primary care physician officefor evaluation for generalized weakness, exertional dyspnea, and hypotension andtachycardia in the office. Has a routine work-up which showed magnesium 1.4 anddigoxin was undetectable. Patient been feeling weak for the last 3 days. He isbeing dizzy. He has been complaining of exertional dyspnea. No orthopnea or PND. No chest pain. No cough. No fever or chills. He denies any nausea vomiting. No abdominal pain. No diarrhea. He denies having dysuria, hematuria, or frequency. Upon presentation to emergency room he did have regular wide complex tachycardia. Patient was given small dose of Lopressor. His QT was prolonged and he was given 2 g of magnesium and a small IV fluid bolus. His CBC was unremarkable. BMP showed mild hyponatremia 134 otherwise unremarkable. And it was negative. 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 Digoxin level was negative. Chest x-ray was clear no acute finding. Patient was given digoxin in the emergency room. His heart rate is better controlled now. It looks like his pacemaker is not capturing. Patient was admitted to the hospitalfor observation with telemetry. IMP Tachybradycardia syndrome Generalized weakness Hypotension Observation admission with cardiac telemetry patient will not require more than 1 night in the hospital Cardiac telemetry Troponin x3 Resume digoxin Continue with Toprol-XL Hold losartan for now Hold Cardizem Cardiology consult He will need pacemaker checkup Sick sinus syndrome status post pacemaker: Pacemaker checkup Obesity: Lifestyle modification Hypertension: Hold losartan and Cardizem due to hypotension Diabetes type 2: Accu-Chek ACHS/insulin sliding scale/resume glipizide and metformin Hyperlipidemia: Resume statin PT OT evaluation IP vs OBS Justification Based on differential dx, clinical care plan, and risk of adverse events, if untreated, in my clinical judgement this patient requires an acute care setting as: OBSERVATION because of an expectation of an under 2 midnight stay. Estimated length of stay (# of days): 1 Documented By: Jennifer Cruz MD 02/02/23 1534 Signed By: <Electronically signed by Jennifer Cruz MD> 02/02/23 1542 [facility] Work Phone: 1(313) 712-404810-26-2023 History of Present illness Narrative* Ketan Lucero MD - 01/07/2023 10:50 AM EDT Subjective Tadeo Thomas is a 77 y.o. male Chief Complaint Follow-up HPI Patient returns in follow-up of problems as noted. In the interim he is done relatively well. He istolerating rate control strategy in combination with Eliquis well. His notes some anorexia andbecause of this I propose that we discontinue digoxin. He also wishes to discontinue his metoprolol. His believes that it makes him lethargic. I suggested Endor proposed that was acceptable to attempt interrupting this agent as well. Lastly he request long- acting diltiazem as opposed to the current prescription and this was also provided. Review of Systems Neurological: Positive for dizziness. All other systems reviewed and are negative. Visit Vitals BP 118/70 (BP Location: Left arm, Patient Position: Sitting) Pulse 66 Ht 1.702 m (5' 7 ) Wt 74.4 kg (164 lb) BMI 25.69 kg/m Smoking Status Former BSA 1.88 m Objective Physical Exam Constitutional: Appearance: Normal appearance. He is normal weight. HENT: Nose: Nose normal. Neck: Vascular: No carotid bruit. Cardiovascular: Rate and Rhythm: Normal rate. Pulses: Normal pulses. Heart sounds: Normal heart sounds. Pulmonary: Effort: Pulmonary effort is normal. Abdominal: General: Bowel sounds are normal. Palpations: Abdomen is soft. Genitourinary: Rectum: Normal. Musculoskeletal: General: Normal range of motion. Cervical back: Normal range of motion. Right lower leg: No edema. Left lower leg: No edema. Skin: General: Skin is warm and dry. Neurological: General: No focal deficit present. Mental Status: He is alert. Psychiatric: Mood and Affect: Mood normal. Behavior: Behavior normal. Thought Content: Thought content normal. Judgment: Judgment normal. Current Medications Current Outpatient Medications: alogliptin (Nesina) 25 mg tablet, Take 1 tablet (25 mg) by mouth once daily., Disp: , Rfl: apixaban (Eliquis) 5 mg tablet, Take 1 tablet (5 mg) by mouth 2 times a day., Disp: , Rfl: cyanocobalamin, vitamin B-12, (Vitamin B-12) 1,000 mcg tablet extended release, Take 1 tablet (1,000 mcg) by mouth once daily., Disp: , Rfl: glipiZIDE (Glucotrol) 10 mg tablet, Take 1 tablet (10 mg) by mouth 2 times a day., Disp: , Rfl: losartan (Cozaar) 25 mg tablet, Take 1 tablet (25 mg) by mouth once daily., Disp: , Rfl: metFORMIN (Glucophage) 1,000 mg tablet, Take 2 tablets (2,000 mg) by mouth once daily., Disp: , Rfl: multivitamin tablet, Take 1 tablet by mouth once daily., Disp: , Rfl: pioglitazone (Actos) 30 mg tablet, Take 1 tablet (30 mg) by mouth once daily., Disp: , Rfl: pravastatin (Pravachol) 80 mg tablet, Take 1 tablet (80 mg) by mouth once daily., Disp: , Rfl: vitamin E 180 mg (400 unit) capsule, Take 1 capsule (400 Units) by mouth once daily., Disp: , Rfl: Assessment/Plan 1. Anticoagulated Tolerated without bleeding diathesis or other complaint 2. Sick sinus syndrome due to sinoatrial node dysfunction (CMS/HCC) Addressed with pacemaker implantation. Previously had tachycardia-bradycardia syndrome necessitating the combination of rate control strategy with pacemaker 3. Pacemaker Satisfactory device performance noted on recent check. 4. Mixed hyperlipidemia Adequately controlled no adjustments in therapy necessary 5. Hypertension, benign Adequately controlled no adjustments in therapy necessary 6. Paroxysmal atrial fibrillation (CMS/HCC) Adequately addressed with antithrombotic strategy. He does not appear to need or benefit from maintenance of sinus rhythm. [facility] Phone: 1(677) 985-393310-26-2023 Instructions* Patient Instructions* Carmen Thomas LPN - 01/07/2023 10:50 AM EDT Please bring all medicines, vitamins, and herbal supplements with you when you come to the office. Prescriptions will not be filled unless you are compliant with your follow up appointments or have a follow up appointment scheduled as per instruction of your physician. Refills should be requested at the time of your visit. Pacemaker/Defibrillator follow up per routine [facility] Work Phone: 1(825) 307-328707-06-2023 Progress note Author Charlie Varner [facility] September 17, 2022 3:55pm Note Date/Time September 17, 2022 3:53p m [facility] [address] [place] [address] Hospitalist Progress Note Signed Patient: Tadeo Thomas MR#: [id number] : 1945 Acct:[id number] Age/Sex: 77 / M Adm Date: 3 Loc: Room: [address] [place] [address] Type: ADM IN Attending Dr: Charlie Varner MD Copies to: ~ Date of Service: 09/17/2022 Subjective Subjective Narrative: Patient seen and examined. Patient is ambulating in the room when I walked intothe room. at the bedside. She noted that patient does not listen to anyone and kept walking around the room. Educated patient that he is scheduled for pacemaker placement today and is at risk of falling in the setting of bradycardia, he verbalized understanding Exam Physical Exam Vital Signs: Temp Pulse Resp BP Pulse Ox O2 Del Method 98.0 F 54 L 16 122/65 97 Room Air 09/17/22 14:04 09/17/22 14:04 09/17/22 14:04 09/17/22 14:04 09/17/22 14:04 09/17/22 14:04 Narrative: General: Awake, alert, oriented x3 not in acute distress HEENT: Normocephalic, atraumatic, PERRLA, dry mucosa Cardiovascular: Regular rate and rhythm , S1-S2 heard, no murmurs or gallops Lungs: No wheezing or rhonchi heard Gastrointestinal: Soft, nontender, bowel sounds heard Extremities: No edema Neurological: no sensory or motor deficit Skin: Dry and warm, no rashes or lesions Psych: Normal mood and affect Objective Lab Results 09/17/22 06:39 09/17/22 06:39 Meds Allergies and Active Meds Allergies No Known Allergies Allergy (Verified 09/14/22 17:03) Active Meds: Active Medications Generic Name Dose Route Start Last Admin Trade Name Kranthiq PRN Reason Stop Dose Admin Acetaminophen 650 mg 09/14/22 20:24 Acetaminophen 325 Mg Tablet PO 09/14/23 20:23 Q6HR PRN Pain Scale 1 - 3 or fever Folic Acid 1 mg 09/15/22 09:00 09/16/22 09:41 Folic Acid 1 Mg Tablet PO 09/15/23 08:59 1 mg DAILY ROBERTO Administration Hydralazine HCl 10 mg 09/14/22 20:24 Hydralazine 20 Mg/Ml Vial IV-PUSH 09/14/23 20:23 Q4H PRN Hypertension Sodium Chloride 1,000 mls @ 20 mls/hr 09/17/22 15:00 0.9% Sodium Chloride 1,000 Ml IV 09/17/23 14:59 .Q24H ROBERTO Lactated Ringer's 1,000 mls @ 20 mls/hr 09/17/22 08:00 09/17/22 13:33 Lactated Ringers IV 09/18/22 07:59 20 mls/hr .Q24H ONE Administration Insulin Aspart 0 units 09/17/22 17:00 Insulin Aspart 300 Units/3 Ml Insuln.Pen SUBCUT 09/17/23 16:59 TID.WM.HS ROBERTO Protocol Lidocaine HCl 0.1 ml 09/17/22 01:35 Lidocaine 1% Pf 30 Ml Vial INFILTRATN PREOP PRN Venipuncture x 1 Dose Linagliptin 5 mg 09/15/22 09:00 09/16/22 09:41 Linagliptin 5 Mg Tablet PO 09/15/23 08:59 5 mg DAILY ROBERTO Administration Losartan Potassium 25 mg 09/15/22 09:00 09/17/22 10:25 Losartan 25 Mg Tablet PO 09/15/23 08:59 25 mg DAILY ROBERTO Administration Metoprolol Succinate 25 mg 09/14/22 21:00 09/17/22 10:25 Metoprolol Succinate 25 Mg Tab.Er.24h PO 09/14/23 20:59 25 mg BID ROBERTO Administration Pioglitazone HCl 30 mg 09/15/22 09:00 09/16/22 09:41 Pioglitazone 30 Mg Tablet PO 09/15/23 08:59 30 mg DAILY ROBERTO Administration Potassium Chloride 40 meq 09/14/22 20:24 Potassium Chloride Er 20 Meq Tab.Er.Prt PO 09/14/23 20:23 DAILY PRN Hypokalemia Pravastatin Sodium 80 mg 09/15/22 22:00 09/16/22 21:58 Pravastatin 40 Mg Tablet PO 09/15/23 21:59 80 mg HS ROBERTO Administration Sodium Chloride 0 ml 09/14/22 20:45 09/17/22 09:13 Sodium Chloride 0.9 % 10 Ml Syringe IV-PUSH 09/14/23 20:44 30 ml PRN PRN Administration Flush Sodium Chloride 0 ml 09/16/22 09:57 Sodium Chloride 0.9 % 10 Ml Syringe IV-PUSH 09/16/23 09:56 PRN PRN Flush Sodium Chloride 0 ml 09/16/22 11:09 Sodium Chloride 0.9 % 10 Ml Syringe IV-PUSH 09/16/23 11:08 PRN PRN Flush Sodium Chloride 0 ml 09/17/22 08:00 Sodium Chloride 0.9 % 10 Ml Syringe IV-PUSH 09/17/23 07:59 PRN PRN Flush Zolpidem Tartrate 5 mg 09/14/22 23:45 09/16/22 21:57 Zolpidem 5 Mg Tablet PO 03/13/23 23:44 5 mg QHS ROBERTO Administration A&P - Hospitalist Assessment/Plan (1) Tachy-rosette syndrome: (2) Tachyarrhythmia: (3) Near syncope: Plan Patient is asymptomatic since he came in Cardiology on board. Patient found to have symptomatic bradycardia with Mobitz type II heart block with intermittent rapid atrial flutter consistent with symptomatic sick sinus syndrome Plan for permanent pacemaker today DVT prophylaxis CODE STATUS full code Documented By: Charlie Varner MD 09/17/22 1550 Signed By: <Electronically signed by Charlie Varner MD> 09/17/22 1558 [facility] Work Phone: 1(930) 323-729807-05-2023 Progress note Author Charlie Varner [facility] September 16, 2022 3:55pm Note Date/Time September 16, 2022 3:55p m [facility] [address] [place] [address] Hospitalist Progress Note Signed Patient: Tadeo Thomas MR#: [id number] : 1945 Acct:[id number] Age/Sex: 77 / M Adm Date: 3 Loc: Room: [address] [place] [address] Type: ADM IN Attending Dr: Charlie Varner MD Copies to: ~ Date of Service: 09/16/2022 Subjective Subjective Narrative: Patient seen and examined. Patient is comfortably resting in bed. Has not had any presyncopal episodes/dizziness since he came to the hospital. He is agreeable with pulmonary pacemaker placement. Exam Physical Exam Vital Signs: Temp Pulse Resp BP Pulse Ox O2 Del Method 97.8 F 51 L 18 133/70 98 Room Air 09/16/22 15:26 09/16/22 15:26 09/16/22 15:26 09/16/22 15:26 09/16/22 15:26 09/16/22 15:26 Narrative: General: Awake, alert, oriented x3 not in acute distress HEENT: Normocephalic, atraumatic, PERRLA, dry mucosa Cardiovascular: Regular rate and rhythm , S1-S2 heard, no murmurs or gallops Lungs: No wheezing or rhonchi heard Gastrointestinal: Soft, nontender, bowel sounds heard Extremities: No edema Neurological: no sensory or motor deficit Skin: Dry and warm, no rashes or lesions Psych: Normal mood and affect Objective Lab Results 09/15/22 05:24 09/15/22 05:24 Meds Allergies and Active Meds Allergies No Known Allergies Allergy (Verified 09/14/22 17:03) Active Meds: Active Medications Generic Name Dose Route Start Last Admin Trade Name Pratibha PRN Reason Stop Dose Admin Acetaminophen 650 mg 09/14/22 20:24 Acetaminophen 325 Mg Tablet PO 09/14/23 20:23 Q6HR PRN Pain Scale 1 - 3 or fever Folic Acid 1 mg 09/15/22 09:00 09/16/22 09:41 Folic Acid 1 Mg Tablet PO 09/15/23 08:59 1 mg DAILY ROBERTO Administration Hydralazine HCl 10 mg 09/14/22 20:24 Hydralazine 20 Mg/Ml Vial IV-PUSH 09/14/23 20:23 Q4H PRN Hypertension Gentamicin Sulfate 160 mg/ 104 mls @ 208 mls/hr 09/17/22 13:30 Sodium Chloride IV 09/17/22 13:31 PREOP ONE Sodium Chloride 1,000 mls @ 20 mls/hr 09/17/22 15:00 0.9% Sodium Chloride 1,000 Ml IV 09/17/23 14:59 .Q24H ROBERTO Vancomycin HCl 1.25 gm/ 275 mls @ 183.333 mls/hr 09/17/22 13:00 Dextrose IV 09/17/22 14:29 PREOP ONE Protocol Linagliptin 5 mg 09/15/22 09:00 09/16/22 09:41 Linagliptin 5 Mg Tablet PO 09/15/23 08:59 5 mg DAILY ROBERTO Administration Losartan Potassium 25 mg 09/15/22 09:00 09/16/22 09:41 Losartan 25 Mg Tablet PO 09/15/23 08:59 25 mg DAILY ROBERTO Administration Metoprolol Succinate 25 mg 09/14/22 21:00 09/16/22 09:44 Metoprolol Succinate 25 Mg Tab.Er.24h PO 09/14/23 20:59 25 mg BID ROBERTO Administration Pioglitazone HCl 30 mg 09/15/22 09:00 09/16/22 09:41 Pioglitazone 30 Mg Tablet PO 09/15/23 08:59 30 mg DAILY ROBERTO Administration Potassium Chloride 40 meq 09/14/22 20:24 Potassium Chloride Er 20 Meq Tab.Er.Prt PO 09/14/23 20:23 DAILY PRN Hypokalemia Pravastatin Sodium 80 mg 09/15/22 22:00 09/15/22 22:02 Pravastatin 40 Mg Tablet PO 09/15/23 21:59 80 mg HS ROBERTO Administration Sodium Chloride 0 ml 09/14/22 20:45 09/16/22 15:29 Sodium Chloride 0.9 % 10 Ml Syringe IV-PUSH 09/14/23 20:44 10 ml PRN PRN Administration Flush Sodium Chloride 0 ml 09/16/22 09:57 Sodium Chloride 0.9 % 10 Ml Syringe IV-PUSH 09/16/23 09:56 PRN PRN Flush Sodium Chloride 0 ml 09/16/22 11:09 Sodium Chloride 0.9 % 10 Ml Syringe IV-PUSH 09/16/23 11:08 PRN PRN Flush Zolpidem Tartrate 5 mg 09/14/22 23:45 09/15/22 22:02 Zolpidem 5 Mg Tablet PO 03/13/23 23:44 5 mg QHS ROBERTO Administration A&P - Hospitalist Assessment/Plan (1) Tachy-rosette syndrome: (2) Tachyarrhythmia: (3) Near syncope: Plan Patient is asymptomatic since he came in Cardiology on board. Patient found to have symptomatic bradycardia with Mobitz type II heart block with intermittent rapid atrial flutter consistent with symptomatic sick sinus syndrome Plan to observe the patient for 24 hours on telemetry while he is off of any negative chronotropic agents, plan for permanent pacemaker implantation if patient continues to have current cardiac rhythm Plan for Lexiscan stress test today for risk stratification DVT prophylaxis CODE STATUS full code Documented By: Charlie Varner MD 09/16/22 1553 Signed By: <Electronically signed by Charlie Varner MD> 09/16/22 1555 [facility] Work Phone: [phone] Progress note Author La Loza [facility] September 16, 2022 3:07pm Note Date/Time September 16, 2022 3:07p m [facility] [address] [place] [address] Anesthesia Progress Note Signed Patient: Tadeo Thomas MR#: [id number] : 1945 Acct:[id number] Age/Sex: 77 / M Adm Date: 3 Loc: 3T Room: 8B7896-0 Type: ADM IN Attending Dr: Charlie Varner MD Copies to: ~ Anesthesia Progress Note Narrative Narrative: Chart review completed. Pending Lexiscan Stress. Otherwise, Pt appears to be optimized for planned pacemaker placement tomorrow. Documented By: LA LOZA DO 09/16/22 1506 Signed By: <Electronically signed by LA LOZA DO> 09/16/22 1507 [facility] Work Phone: [phone] Progress note Author Tae Dietrich [facility] September 16, 2022 10:34am Note Date/Time September 16, 2022 10:34 am [facility] [address] [place] [address] Cardiology Progress Note Signed Patient: Tadeo Thomas MR#: [id number] : 1945 Acct:[id number] Age/Sex: 77 / M Adm Date: 3 Loc: 3T Room: 8C8842-2 Type: ADM IN Attending Dr: Charlie Varner MD Copies to: ~ Date of Service: 09/16/2022 Subjective Principal diagnosis: Symptomatic sick sinus syndrome Interval history: Mr. Thomas is doing well this morning. No complaints other than being bored whilesitting here in the hospital. No chest pain or other anginal symptoms. No lightheadedness dizziness presyncope or syncope. Telemetry monitoring continuesto show intermittent Mobitz 2 heart block. No further atrial fib/flutter noted. No new complaints or issues Exam Physical Exam Vital Signs: Temp Pulse Resp BP Pulse Ox O2 Del Method 97.7 F 73 18 133/64 98 Room Air 09/16/22 04:00 09/16/22 09:44 09/16/22 09:44 09/16/22 09:44 09/16/22 09:44 09/16/22 09:44 Objective Labs 09/15/22 05:24 09/15/22 05:24 Labs: Laboratory Results - last 24 hr 09/14/22 17:22 Estimat Average Glucose 180 Hemoglobin A1c 7.9 H A&P - Cardiology (1) Tachy-rosette syndrome: Assessment/Problem Details: Symptomatic bradycardia with Mobitz type II heart block with intermittent rapid atrial flutter. All consistent with symptomatic sick sinus syndrome. Code(s): I49.5 - Sick sinus syndrome Status: Acute Plan: 1. Risk stratification today with Lexiscan pharmacologic stress with nuclear myocardial perfusion SPECT imaging. 2. Plan for permanent pacemaker implantation tomorrow. (2) Near syncope: Assessment/Problem Details: Very likely due to bradycardic episodes in the setting of sick sinus syndrome with intermittent Mobitz type II heart block. Code(s): R55 - Syncope and collapse Status: Acute Plan: This will being an indication for permanent pacemaker implantation. Plan as above. Plan Thank you very much for this kind consultation and for allowing me to participate in the care of this very pleasant patient and his family Time spent with patient Time Spent With Patient (min): 20 Documented By: Tae Dietrich MD 09/16/22 1032 Signed By: <Electronically signed by Tae Dietrich MD> 09/16/22 1034 [facility] Work Phone: [phone] Progress note Author Charlie Varner [facility] September 15, 2022 3:32pm Note Date/Time September 15, 2022 3:32p m [facility] [address] [place] [address] Hospitalist Progress Note Signed Patient: Tadeo Thomas MR#: [id number] : 1945 Acct:[id number] Age/Sex: 77 / M Adm Date: 3 Loc: Room: [address] [place] [address] Type: ADM IN Attending Dr: Charlie Varner MD Copies to: ~ Date of Service: 09/15/2022 Subjective Subjective Narrative: Patient seen and examined. Patient is comfortably resting in bed. Has not had any presyncopal episodes/dizziness since he came to the hospital. He is agreeable with pulmonary pacemaker placement. Exam Physical Exam Vital Signs: Temp Pulse Resp BP Pulse Ox O2 Del Method 98.0 F 60 18 146/78 H 97 Room Air 09/15/22 12:00 09/15/22 12:00 09/15/22 12:00 09/15/22 12:00 09/15/22 12:00 09/15/22 12:00 Narrative: General: Awake, alert, oriented x3 not in acute distress HEENT: Normocephalic, atraumatic, PERRLA, dry mucosa Cardiovascular: Regular rate and rhythm , S1-S2 heard, no murmurs or gallops Lungs: No wheezing or rhonchi heard Gastrointestinal: Soft, nontender, bowel sounds heard Extremities: No edema Neurological: no sensory or motor deficit Skin: Dry and warm, no rashes or lesions Psych: Normal mood and affect Objective Lab Results 09/15/22 05:24 09/15/22 05:24 Meds Allergies and Active Meds Allergies No Known Allergies Allergy (Verified 09/14/22 17:03) Active Meds: Active Medications Generic Name Dose Route Start Last Admin Trade Name Freq PRN Reason Stop Dose Admin Acetaminophen 650 mg 09/14/22 20:24 Acetaminophen 325 Mg Tablet PO 09/14/23 20:23 Q6HR PRN Pain Scale 1 - 3 or fever Folic Acid 1 mg 09/15/22 09:00 09/15/22 08:28 Folic Acid 1 Mg Tablet PO 09/15/23 08:59 1 mg DAILY ROBERTO Administration Hydralazine HCl 10 mg 09/14/22 20:24 Hydralazine 20 Mg/Ml Vial IV-PUSH 09/14/23 20:23 Q4H PRN Hypertension Linagliptin 5 mg 09/15/22 09:00 09/15/22 08:28 Linagliptin 5 Mg Tablet PO 09/15/23 08:59 5 mg DAILY ROBERTO Administration Losartan Potassium 25 mg 09/15/22 09:00 09/15/22 08:28 Losartan 25 Mg Tablet PO 09/15/23 08:59 25 mg DAILY ROBERTO Administration Metoprolol Succinate 25 mg 09/14/22 21:00 09/15/22 08:28 Metoprolol Succinate 25 Mg Tab.Er.24h PO 09/14/23 20:59 25 mg BID ROBERTO Administration Pioglitazone HCl 30 mg 09/15/22 09:00 09/15/22 08:28 Pioglitazone 30 Mg Tablet PO 09/15/23 08:59 30 mg DAILY ROBERTO Administration Potassium Chloride 40 meq 09/14/22 20:24 Potassium Chloride Er 20 Meq Tab.Er.Prt PO 09/14/23 20:23 DAILY PRN Hypokalemia Pravastatin Sodium 80 mg 09/15/22 22:00 Pravastatin 40 Mg Tablet PO 09/15/23 21:59 HS ROBERTO Sodium Chloride 0 ml 09/14/22 20:45 09/14/22 20:54 Sodium Chloride 0.9 % 10 Ml Syringe IV-PUSH 09/14/23 20:44 10 ml PRN PRN Administration Flush Zolpidem Tartrate 5 mg 09/14/22 23:45 09/14/22 23:34 Zolpidem 5 Mg Tablet PO 03/13/23 23:44 5 mg QHS ROBERTO Administration A&P - Hospitalist Assessment/Plan (1) Tachy-rosette syndrome: (2) Tachyarrhythmia: (3) Near syncope: Plan Patient is asymptomatic since he came in Cardiology on board. Patient found to have symptomatic bradycardia with Mobitz type II heart block with intermittent rapid atrial flutter consistent with symptomatic sick sinus syndrome Plan to observe the patient for 24 hours on telemetry while he is off of any negative chronotropic agents, plan for permanent pacemaker implantation if patient continues to have current cardiac rhythm DVT prophylaxis CODE STATUS full code Documented By: Charlie Varner MD 09/15/22 1527 Signed By: <Electronically signed by Charlie Varner MD> 09/15/22 1532 [facility] Work Phone: [phone] Consult note Author Tae Dietrich [facility] September 15, 2022 12:07pm Note Date/Time September 15, 2022 12:04 pm [facility] [address] [place] [address] Cardiology Consult Note Signed Patient: Tadeo Thomas MR#: [id number] : 1945 Acct:[id number] Age/Sex: 77 / M Adm Date: 3 Loc: Room: [address] [place] [address] Type: ADM IN Attending Dr: Charlie Varner MD Copies to: MD Aracelis Escalera MD Stephen M Tann, MD~ Cardiology HPI History of Present Illness Consult Date: 09/15/22 Reason for Consult: I been asked by the patient's primary medicine service to see the patient in consultation for opinion and recommendations regarding recent episodes of cardiac arrhythmia HPI: Mr. Thomas is a 77 year old male with no known significant prior heart disease whopresented to the emergency department yesterday evening complaining of dizzinessand palpitations. In the ER the patient was found to be in atrial flutter with 2:1 conduction and a ventricular rate of 150 bpm. I was contacted by the ER physician. The patient was treated with digoxin 0.5 mg IV x1 and Lopressor 2.5 mg IV q. 15 minutes x 3 doses. This brought the patient out of atrial flutter but ever since he has been in a Mobitz type II second-degree heart block with ambient heart rates in the low to mid 50s. On further history the patient states that for several months he has been havingintermittent episodes of dizziness and a few episodes of near syncope. These are followed no particular pattern had some of it happened at rest and some withexertion. He denies any prodromal or antecedent symptoms. He denies any subjective sensation of palpitations. He denies any chest pain chest pressure or other anginal symptoms. He does note occasional shortness of breath and dyspnea on exertion which is new over the last few months. Presently the patient is feeling tired but in his normal state of health otherwise. Telemetry monitoring again at this point continues to show a Mobitz type II second-degree heart block with ventricular rate 75 bpm. ECG shows no acute ischemic changes. Troponin has been negative. BNP mildly elevated at 239. Given the above clinical scenario I am now consulted for further cardiac evaluation and management. Review of Systems Review of Systems All other systems reviewed & are negative unless noted below or in HPI PMFSH Vaccinated for COVID-19?: No Medical History Diabetes HTN (hypertension) Social History Smoking Status: Former smoker Substance Use Type: None Meds Medications and Allergies Allergies No Known Allergies Allergy (Verified 09/14/22 17:03) Home Medications alogliptin 25 mg tablet 25 mg PO DAILY 09/14/22 [History Confirmed 09/14/22] folic acid 800 mcg tablet 0.8 mg PO DAILY 09/14/22 [History Confirmed 09/14/22] losartan 25 mg tablet 25 mg PO DAILY 09/14/22 [History Confirmed 09/14/22] pioglitazone 30 mg tablet 30 mg PO DAILY 09/14/22 [History Confirmed 09/14/22] pravastatin 80 mg tablet 80 mg PO DAILY 09/14/22 [History Confirmed 09/14/22] zolpidem 5 mg tablet 5 mg PO QHS 09/14/22 [History Confirmed 09/14/22] Exam Physical Exam Vital Signs: Temp Pulse Resp BP Pulse Ox O2 Del Method 98.0 F 67 18 179/71 H 97 Room Air 09/15/22 08:00 09/15/22 09:01 09/15/22 08:00 09/15/22 08:00 09/15/22 08:00 09/15/22 08:00 SINGH Risk Score SINGH Risk Score Predictor Historical: Age > 65 Years Old and 3 or more Risk Factors: FHx,HTN,elevated cholesterol,DM,active smoker Score Risk Score (0-7): 2 Results Labs 09/15/22 05:24 09/15/22 05:24 Lab results: Cardiac Enzymes 09/14/22 09/14/22 09/14/22 Range/Units 17:22 17:22 17:22 AST 15 (13-39) U/L Total Creatine Kinase 100 (30-223) U/L B-Natriuretic Peptide 239.0 H (5-100) pg/mL CBC 09/14/22 09/15/22 Range/Units 17:22 05:24 RBC 3.69 L 3.06 L (3.90-5.60) X10E6/uL Hgb 12.8 L 10.7 L (13.0-17.0) g/dL Hct 36.9 L 30.2 L (38.8-50.0) % Plt Count 228 158 D (150-450) x10E3/uL Neut # (Auto) 5.8 3.6 (1.8-7.7) x10E3/uL Lymph # (Auto) 4.2 3.9 (1.00-4.8) x10E3/uL Clinch # (Auto) 0.5 0.4 (0.0-0.8) x10E3/uL Eos # (Auto) 0.1 0.0 (0.0-0.45) x10E3/uL Baso # (Auto) 0.0 0.0 (0.0-0.2) x10E3/uL Comprehensive Metabolic Panel 09/14/22 09/15/22 Range/Units 17:22 05:24 Sodium 139 139 (136-145) mmol/L Potassium 4.1 3.8 (3.5-5.1) mmol/L Chloride 103 105 (98-107) mmol/L Carbon Dioxide 27.6 29.8 (21.0-31.0) mmol/L BUN 23 16 (7-25) mg/dL Creatinine 1.05 0.86 (0.70-1.30) mg/dL Glucose 204 H 152 H (70-100) mg/dL Calcium 9.3 8.3 L (8.6-10.3) mg/dL AST 15 (13-39) U/L ALT 14 (7-52) U/L Alkaline Phosphatase 66 (34-104) U/L Total Protein 7.3 (6.4-8.9) gm/dL Albumin 4.3 (3.5-5.7) gm/dL Intake and Output 09/14/22 09/15/22 09/15/22 23:59 07:59 15:59 Intake Total 1050 / 1050 150 / 150 Balance 1050 / 1050 150 / 150 Intake: IV 550 / 550 Magnesium Sulf 2Gm-*Swfi* 2 gm 50 / 50 In 50 ml @ 200 mls/hr IV ONCE ONE Rx#:[id number] Sodium Chloride 0.9% 1,000 ml 500 / 500 500 ml @ 999 mls/hr IV .Q31M ONE Rx#:[id number] Oral 500 / 500 150 / 150 Other: # Voids 1 # Unmeasured Voids 2 # Bowel Movements 0 Weight 81.8 kg 81.7 kg Date of Last Bowel Movement 09/14/22 09/14/22 Patient Weight 09/15/22 23:59 Weight 81.7 kg Lab 09/14/22 17:22 PT 11.5 INR 1.0 APTT 31.4 Echocardiogram Signed Patient: Tadeo Thomas MR#: [id number] : 1945 Acct:[id number] Age/Sex: 77 / M ADM Date: 09/11/22 Loc: EL ?? ? Room:? Type:?REG CLI Attending Dr: Aracelis Pedroza MD Ordering Provider: Aracelis Pedroza MD Date of Service: 09/11/22/ ECH/ECH echo transthoracic: ABNORMAL EKG ? Copies to: Fior Saleem MD, FACC Aracelis Pedroza MD~ BSA: 2.0 m2 ? BP: 121/72 mmHg HR: 54 Reason For Study: ABNORMAL EKG History: HTN, HLD, DM Interpretation Summary Mild concentric left ventricular hypertrophy. The LV ejection fraction is 55 %. A variety of Doppler measurements indicate impaired left ventricular relaxation, which is associated with grade I/IV or mild diastolic dysfunction. The aortic root is 4.2 cm There is no prior echocardiogram noted for this patient. Procedure/Quality: ? A two-dimensional transthoracic echocardiogram with color flow and Doppler was performed. The study was technically good in quality. There is no prior echocardiogram noted for this patient. Left Ventricle: ? Mild concentric left ventricular hypertrophy. Left ventricular systolic function is normal. The LV ejection fraction is 55 %. A variety of Doppler measurements indicate impaired left ventricular relaxation, which is associated with grade I/IV or mild diastolic dysfunction. Left Atrium: ? The left atrium appears normal in size. The atrial septum appears normal. Right Atrium: ? The right atrium appears normal in size. Right Ventricle: ? The right ventricular size, thickness and function are normal. Aortic Valve: ? The aortic valve is mildly sclerotic. The aortic valve is trileaflet. Trace aortic regurgitation. Mitral Valve: ? The mitral valve is mildly sclerotic. There is trace mitral regurgitation. Tricuspid Valve: ? The tricuspid valve is normal. There is trace tricuspid regurgitation. Pulmonic Valve: ? The pulmonic valve is not well seen, but is grossly normal. Trace pulmonic valvular regurgitation. Arteries: ? Mild aortic root dilatation. The aortic root is 4.2 cm. Pericardium/Pleura: ? No pericardial effusion seen. There is no pleural effusion. IVC/Hepatic Viens: ? The IVC is normal in size with an inspiratory collapse of greater then 50%, suggesting normal right atrial pressure. Miscellaneous: ? No thrombus, vegetation or mass is seen. Measurements with Normals IVSd: 1.3 cm? (0.7-1.1 cm)LVIDd: 5.3 cm ? ? ? (3.7-5.4 cm) LVPWd: 1.2 cm ? (0.7-1.1 cm)LVIDs: 3.6 cm ? ? ? (2.3-3.6 cm) LA dimension: 3.7 cm? (2.3-4.0 cm)Ao root diam: 4.4 cm(2.0-3.6 cm) asc Aorta Diam: 4.2 cm(2.1-3.4cm) Doppler with Normals MV E max chidi: 60.0 cm/sec (0.8-1.3m/s) MV A max chidi: 107.5 cm/sec(0.0-0.0m/s) MV E/A: 0.56? (<1.5) MMode/2D Measurements & Calculations RVDd: 3.7 cm ? ? ? FS: 33.2 %? Ao root area: ? ? ? LVOT diam: 2.3 cm TAPSE: 1.8 cm? ? ? EDV(Teich): ? ? ? 15.4 cm2? LVOT area: 4.2 cm2 RV S Chidi:? 136.9 ml 10.6 cm/sec? ESV(Teich): ? 53.0 ml ? EF(Teich): 61.3 % ? __ LVLd ap4: 7.1 cm ? SV(MOD-sp4):? ? ? LAV(MOD-sp4): ? ? ? LA A2 area: 17.5 cm2 EDV(MOD-sp4):? ? ? 43.6 ml ? 22.0 ml 75.0 ml? LAV(MOD-sp2): ? ? ? LA A4 area: 11.1 cm2 LVLs ap4: 5.8 cm ? 49.8 ml ? LA length (vol): ESV(MOD-sp4):? 4.9 cm 31.4 ml? LA vol: 33.6 ml EF(MOD-sp4): 58.1 %? LA vol index: ? 17.1 ml/m2 Doppler Measurements & Calculations MV max PG:? ? ? E/E' lat: 11.3? ? ? AI max chidi: ? MR max chidi: 39.0 mmHg ? ? ? E/E' med: 10.6? ? ? 409.5 cm/sec? 311.3 cm/sec ? AI max P.3 mmHg? MR max PG: ? AI dec slope: ? 39.8 mmHg ? 120.4 cm/sec2 ? AI P1/2t: 995.8 msec ? __ TV max PG:? ? ? TR max chidi: 26.0 mmHg ? ? ? 255.2 cm/sec ? TR max PG: ? 26.0 mmHg Imaging and Cardiology Echo: report reviewed and image reviewed EKG Interpretations EKG Attestation EKG: I reviewed this ECG and interpreted as documented below: Dysrhythmias Sinus rhythms and dysrhythmias: sinus rhythm Blocks, axis, hypertrophy, ST abn AV and intraventricular conduction: Mobitz II 2 AV block Repolarization changes or abnormalities: nonspecific abnormality, ST segment, and/or T wave A&P - Cardiology (1) Tachy-rosette syndrome: Assessment/Problem Details: Symptomatic bradycardia with Mobitz type II heart block with intermittent rapid atrial flutter. All consistent with symptomatic sick sinus syndrome. Plan: 1. Would like to observe the patient for another 24 hours on telemetry monitoring while he is off any negative chronotropic agents. 2. If the patient's cardiac rhythm and heart rate remain as they are currently we will plan to proceed with pacemaker implantation on . Code(s): I49.5 - Sick sinus syndrome (2) Near syncope: Assessment/Problem Details: Very likely due to bradycardic episodes in the setting of sick sinus syndrome with intermittent Mobitz type II heart block. Plan: This will being an indication for permanent pacemaker implantation. Plan as above. Code(s): R55 - Syncope and collapse Plan Thank you very much for this kind consultation and for allowing me to participate in the care of this very pleasant patient and his family Documented By: Tae Dietrich MD 09/15/221200 Signed By: <Electronically signed by Tae Dietrich MD> 09/15/22 1207 [facility] Work Phone: [phone] 668-647907-04-2023 History and physical note Author Charlie Varner [facility] September 14, 2022 10:07pm Note Date/Time September 14, 2022 8:31p m [facility] [address] [place] [address] Hospitalist H&P Signed Patient: Tadeo Thomas MR#: [id number] : 1945 Acct:[id number] Age/Sex: 77 / M Adm Date: 3 Loc: Room: [address] [place] [address] Type: ADM IN Attending Dr: Charlie Varner MD Copies to: MD Aracelis Escalera MD~ HPI DATE OF EXAMINATION: 09/14/22 CHIEF COMPLAINT: presyncope HISTORY OF PRESENT ILLNESS: Patient is a 77-year-old gentleman past medical history of hypertension, diabetes, hyperlipidemia presented to the emergency department complaining of presyncope and dizziness. Patient is not a great historian. He states that he has been having hot flashes where his head feels hot for a minute and then startsweating associated with mild dizziness and has been going on for the past 2 weeks. Today in the afternoon he started having similar symptoms and felt very dizzy and also tachypneic with some shortness of breath. His who was with him at the time got concerned as the symptoms have been more pronounced lately and brought him to the ED. States that he has been on Holter/event monitor but could not tell me if he had any events on it. He never had any history of tachyarrhythmias. He denies any chest pain, cough, nausea, vomiting, palpitations, urinary complaints, fever and chills. He drinks occasionally and does not smoke cigarettes. Review of Systems Review of Systems All other systems reviewed & are negative unless noted below or in HPI [facility] Medical History (Updated 09/14/22 @ 22:02 by Charlie Varner MD) Diabetes HTN (hypertension) Social History Smoking Status: Never smoker Substance Use Type: None Meds Medications and Allergies Allergies No Known Allergies Allergy (Verified 09/14/22 17:03) Home Medications alogliptin 25 mg tablet 25 mg PO DAILY 09/14/22 [History Confirmed 09/14/22] folic acid 800 mcg tablet 0.8 mg PO DAILY 09/14/22 [History Confirmed 09/14/22] losartan 25 mg tablet 25 mg PO DAILY 09/14/22 [History Confirmed 09/14/22] methylphenidate HCl 5 mg tablet (Ritalin) 5 mg PO BID 09/14/22 [History Confirmed 09/14/22] pioglitazone 30 mg tablet 30 mg PO DAILY 09/14/22 [History Confirmed 09/14/22] pravastatin 80 mg tablet 80 mg PO DAILY 09/14/22 [History Confirmed 09/14/22] zolpidem 5 mg tablet 5 mg PO QHS 09/14/22 [History Confirmed 09/14/22] Exam Physical Exam Vital Signs: Temp Pulse Resp BP Pulse Ox O2 Del Method 97.8 F 90 16 113/60 97 Room Air 09/14/22 17:02 09/14/22 20:23 09/14/22 19:00 09/14/22 19:00 09/14/22 19:00 09/14/22 19:00 Narrative: General: Awake, alert, oriented x3 not in acute distress HEENT: Normocephalic, atraumatic, PERRLA, dry mucosa Cardiovascular: Regular rate and rhythm , S1-S2 heard, no murmurs or gallops Lungs: No wheezing or rhonchi heard Gastrointestinal: Soft, nontender, bowel sounds heard Extremities: No edema Neurological: no sensory or motor deficit Skin: Dry and warm, no rashes or lesions Psych: Normal mood and affect Results Lab Results Labs: Laboratory Last Values Corrected WBC 10.6 X10E3/uL (4.1-10.5) H 09/14/22 17:22 Uncorrected WBC Count 10.6 x10E3/uL (4.1-10.5) H 09/14/22 17:22 RBC 3.69 X10E6/uL (3.90-5.60) L 09/14/22 17:22 Hgb 12.8 g/dL (13.0-17.0) L 09/14/22 17:22 Hct 36.9 % (38.8-50.0) L 09/14/22 17:22 MCV 100.0 fl (83.5-101) 09/14/22 17:22 MCH 34.7 pg (27.5-35.2) 09/14/22 17:22 MCHC 34.7 g/dL (32.5-35.6) 09/14/22 17:22 RDW 14.0 % (12.0-14.8) 09/14/22 17: Plt Count 228 x10E3/uL (150-450) 09/14/22 17:22 MPV 8.2 fl (6.6-10.1) 09/14/22 17:22 Neut % (Auto) 54.8 % (.) 09/14/22 17:22 Lymph % (Auto) 39.9 % (.) 09/14/22 17:22 Clinch % (Auto) 4.5 % (.) 09/14/22 17:22 Eos % (Auto) 0.5 % (.) 09/14/22 17:22 Baso % (Auto) 0.3 % (.) 09/14/22 17: Nucleat RBC Rel Count 0.2 /100 WBC (0-0.5) 09/14/22 17:22 Neut # (Auto) 5.8 x10E3/uL (1.8-7.7) 09/14/22 17:22 Lymph # (Auto) 4.2 x10E3/uL (1.00-4.8) 09/14/22 17:22 Clinch # (Auto) 0.5 x10E3/uL (0.0-0.8) 09/14/22 17:22 Eos # (Auto) 0.1 x10E3/uL (0.0-0.45) 09/14/22 17:22 Baso # (Auto) 0.0 x10E3/uL (0.0-0.2) 09/14/22 17: Monocyte Dist Width 17.48 % (0.00-20.00) 09/14/22 17: PT 11.5 Seconds (9.0-12.9) 09/14/22 17: INR 1.0 09/14/22 17: APTT 31.4 Seconds (25.1-36.5) 09/14/22 17: PHA Creatinine Clear 60.89 09/14/22 17:22 Sodium 139 mmol/L (136-145) 09/14/22 17: Potassium 4.1 mmol/L (3.5-5.1) 09/14/22 17: Chloride 103 mmol/L (98-107) 09/14/22 17: Carbon Dioxide 27.6 mmol/L (21.0-31.0) 09/14/22 17: Anion Gap 12.5 mEq/L (6.0-15.0) 09/14/22 17:22 BUN 23 mg/dL (7-25) 09/14/22 17: Creatinine 1.05 mg/dL (0.70-1.30) 09/14/22 17:22 Est GFR (CKD-EPI) > 60.0 mL/Min 09/14/22 17: Glucose 204 mg/dL (70-100) H 09/14/22 17: Calcium 9.3 mg/dL (8.6-10.3) 09/14/22 17: Magnesium 1.4 mg/dL (1.9-2.7) L 09/14/22 17:22 Total Bilirubin 0.4 mg/dl (0.3-1.0) 09/14/22 17:22 AST 15 U/L (13-39) 09/14/22 17: ALT 14 U/L (7-52) 09/14/22 17:22 Alkaline Phosphatase 66 U/L (34-104) 09/14/22 17:22 Total Creatine Kinase 100 U/L (30-223) 09/14/22 17:22 Troponin I High Sens 14.5 pg/mL (0.0-20.0) 09/14/22 17:22 B-Natriuretic Peptide 239.0 pg/mL (5-100) H 09/14/22 17:22 Total Protein 7.3 gm/dL (6.4-8.9) 09/14/22 17:22 Albumin 4.3 gm/dL (3.5-5.7) 09/14/22 17:22 Globulin 3.0 gm/dL 09/14/22 17:22 Albumin/Globulin Ratio 1.4 09/14/22 17:22 Assessment & Plan Assessment/Plan (1) Tachy-rosette syndrome: (2) Tachyarrhythmia: (3) Near syncope: Plan Patient will be admitted to floor for further evaluation management Patient on arrival was tachycardic with wide-complex tachycardia but soon converted to A-fib with PVCs on her aberrantly conducted complexes with controlled heart rate. Blood pressure at times went down to high 50s Patient appears little dehydrated on exam however he states that he has been hydrating himself well and has been eating okay Labs showed no leukocytosis with normal kidney functions, magnesium 1.4, replaced in the ED Troponin within normal limit ED physician spoke to cardiology who recommended digoxin 500 mcg once followed by digoxin 250 IV every 6 hours and metoprolol 2.5 mg IV x310 minutes up Patient currently denies any shortness of breath, cough, chest pain Echo done recently 09/11/2022 showed normal ejection fraction with no significantvalvular abnormality Telemetry Received enoxaparin 80 mg subcu once per cardiology recommendations Monitor BMP DVT prophylaxis CODE STATUS full IP vs OBS Justification Based on differential dx, clinical care plan, and risk of adverse events, if untreated, in my clinical judgement this patient requires an acute care setting as: INPATIENT because of an expectation of an over 2 midnight stay. Estimated length of stay (# of days): 2 Documented By: Charlie Varner MD 09/14/222029 Signed By: <Electronically signed by Charlie Varner MD> 09/14/222206 [facility] Work Phone: [phone] History and physical note Author Charlie Varner [facility] September 14, 2022 10:07pm Note Date/Time September 14, 2022 8:31p m [facility] [address] [place] [address] Hospitalist H&P Signed Patient: Tadeo Thomas MR#: [id number] : 1945 Acct:[id number] Age/Sex: 77 / M Adm Date: 3 Loc: Room: [address] [place] [address] Type: ADM IN Attending Dr: Charlie Varner MD Copies to: MD Aracelis Escalera MD~ HPI DATE OF EXAMINATION: 09/14/22 CHIEF COMPLAINT: presyncope HISTORY OF PRESENT ILLNESS: Patient is a 77-year-old gentleman past medical history of hypertension, diabetes, hyperlipidemia presented to the emergency department complaining of presyncope and dizziness. Patient is not a great historian. He states that he has been having hot flashes where his head feels hot for a minute and then startsweating associated with mild dizziness and has been going on for the past 2 weeks. Today in the afternoon he started having similar symptoms and felt very dizzy and also tachypneic with some shortness of breath. His who was with him at the time got concerned as the symptoms have been more pronounced lately and brought him to the ED. States that he has been on Holter/event monitor but could not tell me if he had any events on it. He never had any history of tachyarrhythmias. He denies any chest pain, cough, nausea, vomiting, palpitations, urinary complaints, fever and chills. He drinks occasionally and does not smoke cigarettes. Review of Systems Review of Systems All other systems reviewed & are negative unless noted below or in HPI [facility] Medical History (Updated 09/14/22 @ 22:02 by Charlie Varner MD) Diabetes HTN (hypertension) Social History Smoking Status: Never smoker Substance Use Type: None Meds Medications and Allergies Allergies No Known Allergies Allergy (Verified 09/14/22 17:03) Home Medications alogliptin 25 mg tablet 25 mg PO DAILY 09/14/22 [History Confirmed 09/14/22] folic acid 800 mcg tablet 0.8 mg PO DAILY 09/14/22 [History Confirmed 09/14/22] losartan 25 mg tablet 25 mg PO DAILY 09/14/22 [History Confirmed 09/14/22] methylphenidate HCl 5 mg tablet (Ritalin) 5 mg PO BID 09/14/22 [History Confirmed 09/14/22] pioglitazone 30 mg tablet 30 mg PO DAILY 09/14/22 [History Confirmed 09/14/22] pravastatin 80 mg tablet 80 mg PO DAILY 09/14/22 [History Confirmed 09/14/22] zolpidem 5 mg tablet 5 mg PO QHS 09/14/22 [History Confirmed 09/14/22] Exam Physical Exam Vital Signs: Temp Pulse Resp BP Pulse Ox O2 Del Method 97.8 F 90 16 113/60 97 Room Air 09/14/22 17:02 09/14/22 20:23 09/14/22 19:00 09/14/22 19:00 09/14/22 19:00 09/14/22 19:00 Narrative: General: Awake, alert, oriented x3 not in acute distress HEENT: Normocephalic, atraumatic, PERRLA, dry mucosa Cardiovascular: Regular rate and rhythm , S1-S2 heard, no murmurs or gallops Lungs: No wheezing or rhonchi heard Gastrointestinal: Soft, nontender, bowel sounds heard Extremities: No edema Neurological: no sensory or motor deficit Skin: Dry and warm, no rashes or lesions Psych: Normal mood and affect Results Lab Results Labs: Laboratory Last Values Corrected WBC 10.6 X10E3/uL (4.1-10.5) H 09/14/22 17:22 Uncorrected WBC Count 10.6 x10E3/uL (4.1-10.5) H 09/14/22 17:22 RBC 3.69 X10E6/uL (3.90-5.60) L 09/14/22 17:22 Hgb 12.8 g/dL (13.0-17.0) L 09/14/22 17:22 Hct 36.9 % (38.8-50.0) L 09/14/22 17:22 MCV 100.0 fl (83.5-101) 09/14/22 17:22 MCH 34.7 pg (27.5-35.2) 09/14/22 17:22 MCHC 34.7 g/dL (32.5-35.6) 09/14/22 17: RDW 14.0 % (12.0-14.8) 09/14/22 17:22 Plt Count 228 x10E3/uL (150-450) 09/14/22 17:22 MPV 8.2 fl (6.6-10.1) 09/14/22 17:22 Neut % (Auto) 54.8 % (.) 09/14/22 17:22 Lymph % (Auto) 39.9 % (.) 09/14/22 17:22 Clinch % (Auto) 4.5 % (.) 09/14/22 17:22 Eos % (Auto) 0.5 % (.) 09/14/22 17:22 Baso % (Auto) 0.3 % (.) 09/14/22 17:22 Nucleat RBC Rel Count 0.2 /100 WBC (0-0.5) 09/14/22 17:22 Neut # (Auto) 5.8 x10E3/uL (1.8-7.7) 09/14/22 17:22 Lymph # (Auto) 4.2 x10E3/uL (1.00-4.8) 09/14/22 17:22 Clinch # (Auto) 0.5 x10E3/uL (0.0-0.8) 09/14/22 17:22 Eos # (Auto) 0.1 x10E3/uL (0.0-0.45) 09/14/22 17:22 Baso # (Auto) 0.0 x10E3/uL (0.0-0.2) 09/14/22 17:22 Monocyte Dist Width 17.48 % (0.00-20.00) 09/14/22 17: PT 11.5 Seconds (9.0-12.9) 09/14/22 17: INR 1.0 09/14/22 17: APTT 31.4 Seconds (25.1-36.5) 09/14/22 17:22 PHA Creatinine Clear 60.89 09/14/22 17:22 Sodium 139 mmol/L (136-145) 09/14/22 17:22 Potassium 4.1 mmol/L (3.5-5.1) 09/14/22 17:22 Chloride 103 mmol/L (98-107) 09/14/22 17:22 Carbon Dioxide 27.6 mmol/L (21.0-31.0) 09/14/22 17:22 Anion Gap 12.5 mEq/L (6.0-15.0) 09/14/22 17:22 BUN 23 mg/dL (7-25) 09/14/22 17:22 Creatinine 1.05 mg/dL (0.70-1.30) 09/14/22 17:22 Est GFR (CKD-EPI) > 60.0 mL/Min 09/14/22 17:22 Glucose 204 mg/dL (70-100) H 09/14/22 17:22 Calcium 9.3 mg/dL (8.6-10.3) 09/14/22 17:22 Magnesium 1.4 mg/dL (1.9-2.7) L 09/14/22 17:22 Total Bilirubin 0.4 mg/dl (0.3-1.0) 09/14/22 17:22 AST 15 U/L (13-39) 09/14/22 17:22 ALT 14 U/L (7-52) 09/14/22 17:22 Alkaline Phosphatase 66 U/L (34-104) 09/14/22 17:22 Total Creatine Kinase 100 U/L (30-223) 09/14/22 17:22 Troponin I High Sens 14.5 pg/mL (0.0-20.0) 09/14/22 17:22 B-Natriuretic Peptide 239.0 pg/mL (5-100) H 09/14/22 17:22 Total Protein 7.3 gm/dL (6.4-8.9) 09/14/22 17:22 Albumin 4.3 gm/dL (3.5-5.7) 09/14/22 17:22 Globulin 3.0 gm/dL 09/14/22 17:22 Albumin/Globulin Ratio 1.4 09/14/22 17:22 Assessment & Plan Assessment/Plan (1) Tachy-rosette syndrome: (2) Tachyarrhythmia: (3) Near syncope: Plan Patient will be admitted to floor for further evaluation management Patient on arrival was tachycardic with wide-complex tachycardia but soon converted to A-fib with PVCs on her aberrantly conducted complexes with controlled heart rate. Blood pressure at times went down to high 50s Patient appears little dehydrated on exam however he states that he has been hydrating himself well and has been eating okay Labs showed no leukocytosis with normal kidney functions, magnesium 1.4, replaced in the ED Troponin within normal limit ED physician spoke to cardiology who recommended digoxin 500 mcg once followed by digoxin 250 IV every 6 hours and metoprolol 2.5 mg IV x310 minutes up Patient currently denies any shortness of breath, cough, chest pain Echo done recently 09/11/2022 showed normal ejection fraction with no significantvalvular abnormality Telemetry Received enoxaparin 80 mg subcu once per cardiology recommendations Monitor BMP DVT prophylaxis CODE STATUS full IP vs OBS Justification Based on differential dx, clinical care plan, and risk of adverse events, if untreated, in my clinical judgement this patient requires an acute care setting as: INPATIENT because of an expectation of an over 2 midnight stay. Estimated length of stay (# of days): 2 Documented By: Charlie Varner MD 09/14/222029 Signed By: <Electronically signed by Charlie Varner MD> 09/14/22 2204 [facility] Work Phone: Consult note Author Tae Dietrich [facility] September 15, 2022 12:07pm Note Date/Time September 15, 2022 12:04 pm [facility] [address] [place] [address] Cardiology Consult Note Signed Patient: Tadeo Thomas MR#: [id number] : 1945 Acct:[id number] Age/Sex: 77 / M Adm Date: 3 Loc: Room: [address] [place] [address] Type: ADM IN Attending Dr: Charlie Varner MD Copies to: MD Aracelis Ecsalera MD Stephen M Tann, MD~ Cardiology HPI History of Present Illness Consult Date: 09/15/22 Reason for Consult: I been asked by the patient's primary medicine service to see the patient in consultation for opinion and recommendations regarding recent episodes of cardiac arrhythmia HPI: Mr. Thomas is a 77 year old male with no known significant prior heart disease whopresented to the emergency department yesterday evening complaining of dizzinessand palpitations. In the ER the patient was found to be in atrial flutter with 2:1 conduction and a ventricular rate of 150 bpm. I was contacted by the ER physician. The patient was treated with digoxin 0.5 mg IV x1 and Lopressor 2.5 mg IV q. 15 minutes x 3 doses. This brought the patient out of atrial flutter but ever since he has been in a Mobitz type II second-degree heart block with ambient heart rates in the low to mid 50s. On further history the patient states that for several months he has been havingintermittent episodes of dizziness and a few episodes of near syncope. These are followed no particular pattern had some of it happened at rest and some withexertion. He denies any prodromal or antecedent symptoms. He denies any subjective sensation of palpitations. He denies any chest pain chest pressure or other anginal symptoms. He does note occasional shortness of breath and dyspnea on exertion which is new over the last few months. Presently the patient is feeling tired but in his normal state of health otherwise. Telemetry monitoring again at this point continues to show a Mobitz type II second-degree heart block with ventricular rate 75 bpm. ECG shows no acute ischemic changes. Troponin has been negative. BNP mildly elevated at 239. Given the above clinical scenario I am now consulted for further cardiac evaluation and management. Review of Systems Review of Systems All other systems reviewed & are negative unless noted below or in HPI PMFSH Vaccinated for COVID-19?: No Medical History Diabetes HTN (hypertension) Social History Smoking Status: Former smoker Substance Use Type: None Meds Medications and Allergies Allergies No Known Allergies Allergy (Verified 09/14/22 17:03) Home Medications alogliptin 25 mg tablet 25 mg PO DAILY 09/14/22 [History Confirmed 09/14/22] folic acid 800 mcg tablet 0.8 mg PO DAILY 09/14/22 [History Confirmed 09/14/22] losartan 25 mg tablet 25 mg PO DAILY 09/14/22 [History Confirmed 09/14/22] pioglitazone 30 mg tablet 30 mg PO DAILY 09/14/22 [History Confirmed 09/14/22] pravastatin 80 mg tablet 80 mg PO DAILY 09/14/22 [History Confirmed 09/14/22] zolpidem 5 mg tablet 5 mg PO QHS 09/14/22 [History Confirmed 09/14/22] Exam Physical Exam Vital Signs: Temp Pulse Resp BP Pulse Ox O2 Del Method 98.0 F 67 18 179/71 H 97 Room Air 09/15/22 08:00 09/15/22 09:01 09/15/22 08:00 09/15/22 08:00 09/15/22 08:00 09/15/22 08:00 SINGH Risk Score SINGH Risk Score Predictor Historical: Age > 65 Years Old and 3 or more Risk Factors: FHx,HTN,elevated cholesterol,DM,active smoker Score Risk Score (0-7): 2 Results Labs 09/15/22 05:24 09/15/22 05:24 Lab results: Cardiac Enzymes 09/14/22 09/14/22 09/14/22 Range/Units 17:22 17:22 17:22 AST 15 (13-39) U/L Total Creatine Kinase 100 (30-223) U/L B-Natriuretic Peptide 239.0 H (5-100) pg/mL CBC 09/14/22 09/15/22 Range/Units 17:22 05:24 RBC 3.69 L 3.06 L (3.90-5.60) X10E6/uL Hgb 12.8 L 10.7 L (13.0-17.0) g/dL Hct 36.9 L 30.2 L (38.8-50.0) % Plt Count 228 158 D (150-450) x10E3/uL Neut # (Auto) 5.8 3.6 (1.8-7.7) x10E3/uL Lymph # (Auto) 4.2 3.9 (1.00-4.8) x10E3/uL Clinch # (Auto) 0.5 0.4 (0.0-0.8) x10E3/uL Eos # (Auto) 0.1 0.0 (0.0-0.45) x10E3/uL Baso # (Auto) 0.0 0.0 (0.0-0.2) x10E3/uL Comprehensive Metabolic Panel 09/14/22 09/15/22 Range/Units 17:22 05:24 Sodium 139 139 (136-145) mmol/L Potassium 4.1 3.8 (3.5-5.1) mmol/L Chloride 103 105 (98-107) mmol/L Carbon Dioxide 27.6 29.8 (21.0-31.0) mmol/L BUN 23 16 (7-25) mg/dL Creatinine 1.05 0.86 (0.70-1.30) mg/dL Glucose 204 H 152 H (70-100) mg/dL Calcium 9.3 8.3 L (8.6-10.3) mg/dL AST 15 (13-39) U/L ALT 14 (7-52) U/L Alkaline Phosphatase 66 (34-104) U/L Total Protein 7.3 (6.4-8.9) gm/dL Albumin 4.3 (3.5-5.7) gm/dL Intake and Output 09/14/22 09/15/22 09/15/22 23:59 07:59 15:59 Intake Total 1050 / 1050 150 / 150 Balance 1050 / 1050 150 / 150 Intake: IV 550 / 550 Magnesium Sulf 2Gm-*Swfi* 2 gm 50 / 50 In 50 ml @ 200 mls/hr IV ONCE ONE Rx#:[id number] Sodium Chloride 0.9% 1,000 ml 500 / 500 500 ml @ 999 mls/hr IV .Q31M ONE Rx#:[id number] Oral 500 / 500 150 / 150 Other: # Voids 1 # Unmeasured Voids 2 # Bowel Movements 0 Weight 81.8 kg 81.7 kg Date of Last Bowel Movement 09/14/22 09/14/22 Patient Weight 09/15/22 23:59 Weight 81.7 kg Lab 09/14/22 17:22 PT 11.5 INR 1.0 APTT 31.4 Echocardiogram Signed Patient: Tadeo Thomas MR#: [id number] : 1945 Acct:[id number] Age/Sex: 77 / M ADM Date: 09/11/22 Loc: EL ?? ? Room:? Type:?REG CLI Attending Dr: Aracelis Pedroza MD Ordering Provider: Aracelis Pedroza MD Date of Service: 09/11/22/ ECH/ECH echo transthoracic: ABNORMAL EKG ? Copies to: Fior Saleem MD, FACC Aracelis Pedroza MD~ BSA: 2.0 m2 ? BP: 121/72 mmHg HR: 54 Reason For Study: ABNORMAL EKG History: HTN, HLD, DM Interpretation Summary Mild concentric left ventricular hypertrophy. The LV ejection fraction is 55 %. A variety of Doppler measurements indicate impaired left ventricular relaxation, which is associated with grade I/IV or mild diastolic dysfunction. The aortic root is 4.2 cm There is no prior echocardiogram noted for this patient. Procedure/Quality: ? A two-dimensional transthoracic echocardiogram with color flow and Doppler was performed. The study was technically good in quality. There is no prior echocardiogram noted for this patient. Left Ventricle: ? Mild concentric left ventricular hypertrophy. Left ventricular systolic function is normal. The LV ejection fraction is 55 %. A variety of Doppler measurements indicate impaired left ventricular relaxation, which is associated with grade I/IV or mild diastolic dysfunction. Left Atrium: ? The left atrium appears normal in size. The atrial septum appears normal. Right Atrium: ? The right atrium appears normal in size. Right Ventricle: ? The right ventricular size, thickness and function are normal. Aortic Valve: ? The aortic valve is mildly sclerotic. The aortic valve is trileaflet. Trace aortic regurgitation. Mitral Valve: ? The mitral valve is mildly sclerotic. There is trace mitral regurgitation. Tricuspid Valve: ? The tricuspid valve is normal. There is trace tricuspid regurgitation. Pulmonic Valve: ? The pulmonic valve is not well seen, but is grossly normal. Trace pulmonic valvular regurgitation. Arteries: ? Mild aortic root dilatation. The aortic root is 4.2 cm. Pericardium/Pleura: ? No pericardial effusion seen. There is no pleural effusion. IVC/Hepatic Viens: ? The IVC is normal in size with an inspiratory collapse of greater then 50%, suggesting normal right atrial pressure. Miscellaneous: ? No thrombus, vegetation or mass is seen. Measurements with Normals IVSd: 1.3 cm? (0.7-1.1 cm)LVIDd: 5.3 cm ? ? ? (3.7-5.4 cm) LVPWd: 1.2 cm ? (0.7-1.1 cm)LVIDs: 3.6 cm ? ? ? (2.3-3.6 cm) LA dimension: 3.7 cm? (2.3-4.0 cm)Ao root diam: 4.4 cm(2.0-3.6 cm) asc Aorta Diam: 4.2 cm(2.1-3.4cm) Doppler with Normals MV E max chidi: 60.0 cm/sec (0.8-1.3m/s) MV A max chidi: 107.5 cm/sec(0.0-0.0m/s) MV E/A: 0.56? (<1.5) MMode/2D Measurements & Calculations RVDd: 3.7 cm ? ? ? FS: 33.2 %? Ao root area: ? ? ? LVOT diam: 2.3 cm TAPSE: 1.8 cm? ? ? EDV(Teich): ? ? ? 15.4 cm2? LVOT area: 4.2 cm2 RV S Chidi:? 136.9 ml 10.6 cm/sec? ESV(Teich): ? 53.0 ml ? EF(Teich): 61.3 % ? __ LVLd ap4: 7.1 cm ? SV(MOD-sp4):? ? ? LAV(MOD-sp4): ? ? ? LA A2 area: 17.5 cm2 EDV(MOD-sp4):? ? ? 43.6 ml ? 22.0 ml 75.0 ml? LAV(MOD-sp2): ? ? ? LA A4 area: 11.1 cm2 LVLs ap4: 5.8 cm ? 49.8 ml ? LA length (vol): ESV(MOD-sp4):? 4.9 cm 31.4 ml? LA vol: 33.6 ml EF(MOD-sp4): 58.1 %? LA vol index: ? 17.1 ml/m2 Doppler Measurements & Calculations MV max PG:? ? ? E/E' lat: 11.3? ? ? AI max chidi: ? MR max chidi: 39.0 mmHg ? ? ? E/E' med: 10.6? ? ? 409.5 cm/sec? 311.3 cm/sec ? AI max P.3 mmHg? MR max PG: ? AI dec slope: ? 39.8 mmHg ? 120.4 cm/sec2 ? AI P1/2t: 995.8 msec ? __ TV max PG:? ? ? TR max chidi: 26.0 mmHg ? ? ? 255.2 cm/sec ? TR max PG: ? 26.0 mmHg Imaging and Cardiology Echo: report reviewed and image reviewed EKG Interpretations EKG Attestation EKG: I reviewed this ECG and interpreted as documented below: Dysrhythmias Sinus rhythms and dysrhythmias: sinus rhythm Blocks, axis, hypertrophy, ST abn AV and intraventricular conduction: Mobitz II 2 AV block Repolarization changes or abnormalities: nonspecific abnormality, ST segment, and/or T wave A&P - Cardiology (1) Tachy-rosette syndrome: Assessment/Problem Details: Symptomatic bradycardia with Mobitz type II heart block with intermittent rapid atrial flutter. All consistent with symptomatic sick sinus syndrome. Plan: 1. Would like to observe the patient for another 24 hours on telemetry monitoring while he is off any negative chronotropic agents. 2. If the patient's cardiac rhythm and heart rate remain as they are currently we will plan to proceed with pacemaker implantation on . Code(s): I49.5 - Sick sinus syndrome (2) Near syncope: Assessment/Problem Details: Very likely due to bradycardic episodes in the setting of sick sinus syndrome with intermittent Mobitz type II heart block. Plan: This will being an indication for permanent pacemaker implantation. Plan as above. Code(s): R55 - Syncope and collapse Plan Thank you very much for this kind consultation and for allowing me to participate in the care of this very pleasant patient and his family Documented By: Tae Dietrich MD 09/15/22 1201 Signed By: <Electronically signed by Tae Dietrich MD> 09/15/22 1207 [facility] Work Phone: Consult note Author Samra Garza [facility] February 03, 2023 10:37am Note Date/Time February 03, 2023 10:14am [facility] [address] [place] [address] Cardiology Consult Note Signed Patient: Tadeo Thomas MR#: [id number] : 1945 Acct:[id number] Age/Sex: 78 / M Adm Date: 3 Loc: Room: [address] [place] [address] Type: ADM INOo Attending Dr: Jennifer Cruz MD Copies to: MD Samra Guerin MD Robert L Hill, MD~ Cardiology HPI History of Present Illness Consult Date: 02/03/23 Reason for Consult: Cardiac consultation requested for evaluation for tachycardia HPI: Mr. Thomas is a 78 year old male with known history of paroxysmal atrial flutter and tachybradycardia syndrome and underwent pacemaker implantation back in September. His tachycardia treated initially with metoprolol but during recent office visit the patient was complaining of being fatigued and tired and he was switched to combination of digoxin and diltiazem. The patient was sent from hisfamily physician's office because of observation of tachycardia and borderline hypotension. Patient appears fatigued and tired. On presentation he was noted to be tachycardic. Available EKG highly suggestive of atrial flutter with 221 AV block. Pacemaker checked and demonstrated appropriate device function. There is no evidence of pacemaker mediated tachycardia. At the time of evaluation the patient reported improvement however he remains intermittently tachycardic and again rhythm strips highly suggestive of atrial flutter with 221AV block. The patient denies previous history of coronary arteries, congestive heart failure or valvular heart disease. During his previous evaluation his echocardiogram showed normal LV systolic function. At the time my evaluation the patient remains in tachycardic rhythm that appears to be atrial flutter. The patient appears relatively poor historian and he does carry the diagnosis ofdementia Review of Systems Constitutional Constitutional: Reports fatigue and Reports weakness Eyes Eyes: Reports system reviewed and no additional complaints, except as documented ENT Ears, Nose, Mouth, and Throat: Reports system reviewed and no additional complaints, except as documented Cardiovascular Cardiovascular: Reports dyspnea on exertion Respiratory Respiratory: Reports system reviewed and no additional complaints, except as documented Gastrointestinal Gastrointestinal: Reports system reviewed and no additional complaints, except as documented Genitourinary Genitourinary: Reports system reviewed and no additional complaints, except as documented Musculoskeletal Musculoskeletal: Reports system reviewed and no additional complaints, except asdocumented Integumentary/Breasts Skin/Breast: Reports system reviewed and no additional complaints, except as documented Neurologic Neurologic: Reports system reviewed and no additional complaints, except as documented Psychiatric Psychiatric: Reports system reviewed and no additional complaints, except as documented Endocrine Endocrine: Reports system reviewed and no additional complaints, except as documented Hematologic/Lymphatic Hematologic/Lymphatic: Reports system reviewed and no additional complaints, except as documented Allergic/Immunologic Allergic/Immunologic: Reports system reviewed and no additional complaints, except as documented [facility] Medical History Dementia Diabetes HTN (hypertension) Pacemaker Family History Father Dementia Diabetes Brother Diabetes Social History Smoking Status: Former smoker Tobacco Type: cigarettes Substance Use Type: None Meds Medications and Allergies Allergies No Known Allergies Allergy (Verified 02/02/23 11:51) Home Medications alogliptin 25 mg tablet 25 mg PO DAILY 09/14/22 [History Confirmed 02/02/23] pioglitazone 30 mg tablet 30 mg PO DAILY 09/14/22 [History Confirmed 02/02/23] pravastatin 80 mg tablet 80 mg PO DAILY 09/14/22 [History Confirmed 02/02/23] digoxin 125 mcg (0.125 mg) tablet 125 mcg PO DAILY 30 days #30 tabs 09/18/22 [Rx Confirmed 02/02/23] apixaban 5 mg tablet 5 mg PO BID 02/02/23 [History Confirmed 02/02/23] diltiazem HCl 30 mg tablet 120 mg PO DAILY 02/02/23 [History Confirmed 02/02/23] glipizide 10 mg tablet 10 mg PO BID 02/02/23 [History Confirmed 02/02/23] metformin 1,000 mg tablet 1,000 mg PO DAILY 02/02/23 [History Confirmed 02/02/23] Exam Physical Exam Vital Signs: Temp Pulse Resp BP Pulse Ox O2 Del Method 97.4 F L 74 18 145/74 H 96 Room Air 02/03/23 08:29 02/03/23 09:47 02/03/23 08:29 02/03/23 09:47 02/03/23 08:29 02/03/23 08:31 Const General: cooperative, comfortable, no acute distress and well developed HEENT Head: atraumatic Mouth: oral mucosae normal Eyes General: appearance normal, both eyes and all related structures Pupils: PERRL Neck Neck: normal visual inspection, supple and no lymphadenopathy noted Neck mass: No Thyroid: thyroid normal Carotids: normal carotid upstroke Chest Chest palpation & inspection: normal inspection of the chest Resp Effort & Inspection: normal respiratory effort Auscultation: clear to auscultation bilaterally Cardio Palpation: normal PMI Rate: regular rate and tachycardic Rhythm: regular rhythm Heart Sounds: S1 normal and S2 normal GI Palpation: soft and no hepatosplenomegaly Percussion: normal to percussion Auscultation: normal bowel sounds Skin General: no rashes or lesions noted and dry skin Neuro General: patient alert, patient awake, patient oriented x3, tone normal and moves all extremities Extrem General: full ROM, capillary refill normal and no clubbing, cyanosis or edema Psych Mental Status: mental status grossly normal Results Labs 02/02/23 11:35 02/03/23 06:27 Lab results: Cardiac Enzymes 02/02/23 02/02/23 Range/Units 11:35 11:35 AST 17 (13-39) U/L B-Natriuretic Peptide 427.0 H (5-100) pg/mL CBC 02/02/23 Range/Units 11:35 RBC 3.26 L (3.90-5.60) X10E6/uL Hgb 11.0 L (13.0-17.0) g/dL Hct 32.4 L (38.8-50.0) % Plt Count 227 (150-450) x10E3/uL Neut # (Auto) 5.4 (1.8-7.7) x10E3/uL Lymph # (Auto) 3.3 (1.00-4.8) x10E3/uL Clinch # (Auto) 0.4 (0.0-0.8) x10E3/uL Eos # (Auto) 0.0 (0.0-0.45) x10E3/uL Baso # (Auto) 0.0 (0.0-0.2) x10E3/uL Comprehensive Metabolic Panel 02/02/23 02/03/23 Range/Units 11:35 06:27 Sodium 134 L 142 D (136-145) mmol/L Potassium 4.2 3.7 (3.5-5.1) mmol/L Chloride 105 104 (98-107) mmol/L Carbon Dioxide 26.5 30.7 (21.0-31.0) mmol/L BUN 24 17 (7-25) mg/dL Creatinine 0.99 0.81 (0.70-1.30) mg/dL Glucose 227 H 92 D (70-100) mg/dL Calcium 9.0 8.3 L (8.6-10.3) mg/dL AST 17 (13-39) U/L ALT 18 (7-52) U/L Alkaline Phosphatase 74 (34-104) U/L Total Protein 6.6 (6.4-8.9) gm/dL Albumin 3.7 (3.5-5.7) gm/dL Intake and Output 11/02/03/23 02/03/23 23:59 07:59 15:59 Intake Total 100 / 650 300 / 300 Balance 100 / 650 300 / 300 Intake: Oral 100 / 100 300 / 300 Other: # Unmeasured Voids 2 Weight 72.8 kg Date of Last Bowel Movement 02/02/23 02/02/23 Patient Weight 02/03/23 23:59 Weight 72.8 kg EKG Interpretations EKG Attestation EKG: I reviewed this ECG and interpreted as documented below: (EKG showed tachycardia with heart rate around 130 with right bundle branch block morphology. Rhythm likely to be atrial flutter less likely SVT) A&P - Cardiology (1) Tachyarrhythmia: Code(s): R00.0 - Tachycardia, unspecified Plan Assessment 1. Symptoms of fatigue, tiredness and borderline low blood pressure triggered by tachycardia likely atrial flutter with 221 AV block 2. History of tachybradycardia syndrome 3. Hypertension 4. Dementia 5. Diabetes mellitus 6. Hyperlipidemia 7. Patient and his report poor tolerance to beta-josefa Plan 1. For the time being we will initiate heart rate control with IV Cardizem 2. I discussed treatment option with the patient and his at great length. Will initiate antiarrhythmic in form of flecainide 50 mg twice daily on the longrun we will continue diltiazem discontinue digoxin 3. Continue anticoagulation 4. If tachyarrhythmia persist consideration for outpatient EP evaluation for possible ablation Documented By: Samra Garza MD 02/03/23 1011 Signed By: <Electronically signed by MD Samra Garza> 02/03/23 1037 [facility] Work Phone: Evaluation note* Diagnosis Onset Date Resolution Status Bigeminy acute Near syncope acute Sinus arrhythmia acute Tachy-rosette syndrome acute Tachyarrhythmia acute [facility] Work Phone: Evaluation note* Diagnosis Anticoagulated- Primary Encounter for long-term (current) use of anticoagulants Sick sinus syndrome due to sinoatrial node dysfunction (CMS/HCC) Pacemaker Cardiac pacemaker in situ Mixed hyperlipidemia Hypertension, benign Essential hypertension, benign Paroxysmal atrial fibrillation (CMS/HCC) Atrial fibrillation documented in this encounter [facility] Work Phone: Evaluation note* Diagnosis Onset Date Resolution Status Acute hypotension acute Non-sustained ventricular tachycardia acute Sick sinus syndrome acute SVT (supraventricular tachycardia) acute [facility] Work Phone: Evaluation note* Diagnosis Onset Date Resolution Status Acute hypotension acute Diabetes type 2, controlled acute Hyperlipemia acute Non-sustained ventricular tachycardia acute Sick sinus syndrome acute SVT (supraventricular tachycardia) acute Tachy-rosette syndrome acute Tachyarrhythmia acute [facility] Work Phone: Evaluation note* Diagnosis Sick sinus syndrome due to sinoatrial node dysfunction (CMS/HCC)- Primary Atrial fibrillation, unspecified type (CMS/HCC) Paroxysmal atrial fibrillation (CMS/HCC) Atrial fibrillation Pacemaker Cardiac pacemaker in situ Mixed hyperlipidemia Hypertension, benign Essential hypertension, benign Anticoagulated Encounter for long-term (current) use of anticoagulants documented in this encounter [facility] Work Phone: History and physical note Author Jennifer Cruz [facility] February 02, 2023 3:44pm Note Date/Time February 02, 2023 3:44pm [facility] [address] [place] [address] Hospitalist H&P Signed Patient: Tadeo Thomas MR#: [id number] : 1945 Acct:[id number] Age/Sex: 78 / M Adm Date: 3 Loc: Room: [address] [place] [address] Type: ADM INOo Attending Dr: Jennifer Cruz MD Copies to: MD Aracelis Guerin MD~ HPI DATE OF EXAMINATION: 02/02/23 CHIEF COMPLAINT: Generalized weakness HISTORY OF PRESENT ILLNESS: 78-year-old white male past medical history of obesity, hypertension, diabetes type 2, hyperlipidemia, A-fib, sick sinus syndrome syndrome, status post pacemaker, who presents to emergency room from his primary care physician officefor evaluation for generalized weakness, exertional dyspnea, and hypotension andtachycardia in the office. Has a routine work-up which showed magnesium 1.4 anddigoxin was undetectable. Patient been feeling weak for the last 3 days. He isbeing dizzy. He has been complaining of exertional dyspnea. No orthopnea or PND. No chest pain. No cough. No fever or chills. He denies any nausea vomiting. No abdominal pain. No diarrhea. He denies having dysuria, hematuria, or frequency. Upon presentation to emergency room he did have regular wide complex tachycardia. Patient was given small dose of Lopressor. His QT was prolonged and he was given 2 g of magnesium and a small IV fluid bolus. His CBC was unremarkable. BMP showed mild hyponatremia 134 otherwise unremarkable. And it was negative. 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 Digoxin level was negative. Chest x-ray was clear no acute finding. Patient was given digoxin in the emergency room. His heart rate is better controlled now. It looks like his pacemaker is not capturing. Patient was admitted to the hospitalfor observation with telemetry. Review of Systems Review of Systems All other systems reviewed & are negative unless noted below or in HPI [facility] Medical History (Updated 02/02/23 @ 15:40 by Jennifer Cruz MD) Diabetes HTN (hypertension) Pacemaker Social History Smoking Status: Former smoker Tobacco Type: cigarettes Substance Use Type: None Meds Medications and Allergies Allergies No Known Allergies Allergy (Verified 02/02/23 11:51) Home Medications alogliptin 25 mg tablet 25 mg PO DAILY 09/14/22 [History Confirmed 02/02/23] losartan 25 mg tablet 25 mg PO DAILY 09/14/22 [History Confirmed 09/14/22] pioglitazone 30 mg tablet 30 mg PO DAILY 09/14/22 [History Confirmed 02/02/23] pravastatin 80 mg tablet 80 mg PO DAILY 09/14/22 [History Confirmed 02/02/23] digoxin 125 mcg (0.125 mg) tablet 125 mcg PO DAILY 30 days #30 tabs 09/18/22 [Rx Confirmed 02/02/23] metoprolol succinate 50 mg tablet,extended release 24 hr 50 mg PO DAILY 30 days #30 tabs 09/18/22 [Rx] apixaban 5 mg tablet 5 mg PO BID 02/02/23 [History Confirmed 02/02/23] diltiazem HCl 30 mg tablet 120 mg PO DAILY 02/02/23 [History Confirmed 02/02/23] glipizide 10 mg tablet 10 mg PO BID 02/02/23 [History Confirmed 02/02/23] metformin 1,000 mg tablet 1,000 mg PO DAILY 02/02/23 [History Confirmed 02/02/23] Exam Physical Exam Vital Signs: Temp Pulse Resp BP Pulse Ox O2 Del Method 98.1 F 78 18 119/73 99 Room Air 02/02/23 11:50 02/02/23 14:19 02/02/23 14:19 02/02/23 14:19 02/02/23 14:19 02/02/23 14:19 Narrative: General patient laying in bed in no acute distress alert awake oriented x3 HEENT PERRLA Neck supple no JVD no carotid bruit CVS S1-S2 irregular rate and rhythm no murmur no gallop Chest clear to auscultation percussion Abdomen soft bowel sounds normoactive no rebound no guarding Extremities no stenosis no clubbing no edema Musculoskeletal exam normal no joint effusion Neurologic exam oriented x3 alert awake no focal left Psychiatry: Normal insight and judgment Results Lab Results Labs: Laboratory Last Values Corrected WBC 9.2 X10E3/uL (4.1-10.5) 02/02/23 11:35 Uncorrected WBC Count 9.2 x10E3/uL (4.1-10.5) 02/02/23 11:35 RBC 3.26 X10E6/uL (3.90-5.60) L 02/02/23 11:35 Hgb 11.0 g/dL (13.0-17.0) L 02/02/23 11:35 Hct 32.4 % (38.8-50.0) L 02/02/23 11:35 MCV 99.1 fl (83.5-101) 02/02/23 11:35 MCH 33.5 pg (27.5-35.2) 02/02/23 11:35 MCHC 33.8 g/dL (32.5-35.6) 02/02/23 11:35 RDW 14.8 % (12.0-14.8) 02/02/23 11:35 Plt Count 227 x10E3/uL (150-450) 02/02/23 11:35 MPV 8.2 fl (6.6-10.1) 02/02/23 11:35 Neut % (Auto) 59.2 % (.) 02/02/23 11:35 Lymph % (Auto) 35.5 % (.) 02/02/23 11:35 Clinch % (Auto) 4.8 % (.) 02/02/23 11:35 Eos % (Auto) 0.2 % (.) 02/02/23 11:35 Baso % (Auto) 0.3 % (.) 02/02/23 11:35 Nucleat RBC Rel Count 0.6 /100 WBC (0-0.5) H 02/02/23 11:35 Neut # (Auto) 5.4 x10E3/uL (1.8-7.7) 02/02/23 11:35 Lymph # (Auto) 3.3 x10E3/uL (1.00-4.8) 02/02/23 11:35 Clinch # (Auto) 0.4 x10E3/uL (0.0-0.8) 02/02/23 11:35 Eos # (Auto) 0.0 x10E3/uL (0.0-0.45) 02/02/23 11:35 Baso # (Auto) 0.0 x10E3/uL (0.0-0.2) 02/02/23 11:35 Monocyte Dist Width 18.83 % (0.00-20.00) 02/02/23 11:35 PHA Creatinine Clear 63.41 02/02/23 11:35 Sodium 134 mmol/L (136-145) L 02/02/23 11:35 Potassium 4.2 mmol/L (3.5-5.1) 02/02/23 11:35 Chloride 105 mmol/L (98-107) 02/02/23 11:35 Carbon Dioxide 26.5 mmol/L (21.0-31.0) 02/02/23 11:35 Anion Gap 6.7 mEq/L (6.0-15.0) 02/02/23 11:35 BUN 24 mg/dL (7-25) 02/02/23 11:35 Creatinine 0.99 mg/dL (0.70-1.30) 02/02/23 11:35 Est GFR (CKD-EPI) > 60.0 mL/Min 02/02/23 11:35 Glucose 227 mg/dL (70-100) H 02/02/23 11:35 Calcium 9.0 mg/dL (8.6-10.3) 02/02/23 11:35 Total Bilirubin 0.5 mg/dl (0.3-1.0) 02/02/23 11:35 AST 17 U/L (13-39) 02/02/23 11:35 ALT 18 U/L (7-52) 02/02/23 11:35 Alkaline Phosphatase 74 U/L (34-104) 02/02/23 11:35 Troponin I High Sens 15.0 pg/mL (0.0-20.0) 02/02/23 11:35 B-Natriuretic Peptide 427.0 pg/mL (5-100) H 02/02/23 11:35 Total Protein 6.6 gm/dL (6.4-8.9) 02/02/23 11:35 Albumin 3.7 gm/dL (3.5-5.7) 02/02/23 11:35 Globulin 2.9 gm/dL 02/02/23 11:35 Albumin/Globulin Ratio 1.3 02/02/23 11:35 Digoxin < 0.3 ng/mL (0.9-2.0) L 02/02/23 11:35 Assessment & Plan Assessment/Plan (1) Tachyarrhythmia: (2) Tachy-rosette syndrome: (3) Diabetes type 2, controlled: (4) Hyperlipemia: Plan 78-year-old white male past medical history of obesity, hypertension, diabetes type 2, hyperlipidemia, A-fib, sick sinus syndrome syndrome, status post pacemaker, who presents to emergency room from his primary care physician officefor evaluation for generalized weakness, exertional dyspnea, and hypotension andtachycardia in the office. Has a routine work-up which showed magnesium 1.4 anddigoxin was undetectable. Patient been feeling weak for the last 3 days. He isbeing dizzy. He has been complaining of exertional dyspnea. No orthopnea or PND. No chest pain. No cough. No fever or chills. He denies any nausea vomiting. No abdominal pain. No diarrhea. He denies having dysuria, hematuria, or frequency. Upon presentation to emergency room he did have regular wide complex tachycardia. Patient was given small dose of Lopressor. His QT was prolonged and he was given 2 g of magnesium and a small IV fluid bolus. His CBC was unremarkable. BMP showed mild hyponatremia 134 otherwise unremarkable. And it was negative. 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 Digoxin level was negative. Chest x-ray was clear no acute finding. Patient was given digoxin in the emergency room. His heart rate is better controlled now. It looks like his pacemaker is not capturing. Patient was admitted to the hospitalfor observation with telemetry. IMP Tachybradycardia syndrome Generalized weakness Hypotension Observation admission with cardiac telemetry patient will not require more than 1 night in the hospital Cardiac telemetry Troponin x3 Resume digoxin Continue with Toprol-XL Hold losartan for now Hold Cardizem Cardiology consult He will need pacemaker checkup Sick sinus syndrome status post pacemaker: Pacemaker checkup Obesity: Lifestyle modification Hypertension: Hold losartan and Cardizem due to hypotension Diabetes type 2: Accu-Chek ACHS/insulin sliding scale/resume glipizide and metformin Hyperlipidemia: Resume statin PT OT evaluation IP vs OBS Justification Based on differential dx, clinical care plan, and risk of adverse events, if untreated, in my clinical judgement this patient requires an acute care setting as: OBSERVATION because of an expectation of an under 2 midnight stay. Estimated length of stay (# of days): 1 Documented By: Jennifer Cruz MD 02/02/23 1534 Signed By: <Electronically signed by Jennifer Cruz MD> 02/02/23 1544 [facility] Work Phone: History of Present illness Narrative* The patient states he has been generally stable since the last visit. Comorbid Illnesses: diabetes mellitus, hypertension and hyperlipidemia. * Symptoms: denies chest pain at rest, denies exertional chest pain, improved dyspnea, improved fatigue, improved exercise intolerance, resolved palpitations, denies edema, denies orthopnea, improved dizziness and denies orthostatic dizziness. * Associated symptoms: no syncope. * Disease Monitoring: The patient has had a stable weight. * Medications: the patient is adherent with his medication regimen. He denies medication side effects. [facility] DO Work Phone: History of Present illness Narrative* The patient states he has been generally stable since the last visit. Comorbid Illnesses: diabetes mellitus, hypertension and hyperlipidemia. * Symptoms: denies chest pain at rest, denies exertional chest pain, improved dyspnea, improved fatigue, improved exercise intolerance, resolved palpitations, denies edema, denies orthopnea, improved dizziness and denies orthostatic dizziness. * Associated symptoms: no syncope. * Disease Monitoring: The patient has had a stable weight. * Medications: the patient is adherent with his medication regimen. He denies medication side effects. -[facility] 250 DO Work Phone: History of Present illness Narrative* The patient states he has been generally doing well since the last visit. Comorbid Illnesses: hypertension and hyperlipidemia. * Symptoms: denies chest pain at rest, denies exertional chest pain, denies dyspnea, improved fatigue, denies exercise intolerance, denies palpitations, denies edema, denies orthopnea, denies dizzinessand denies orthostatic dizziness. * Associated symptoms: no syncope. * His symptoms do not limit his activities. * Disease Monitoring: The patient has had a stable weight. * Medications: the patient is adherent with his medication regimen. He denies medication side effects. -[facility] 250 DO Work Phone: Hospital Discharge instructions Additional Instructions DISCHARGE INSTRUCTIONS FOR PERMANENT PACEMAKER AND IMPLANTABLE CARDIOVERTER DEFIBRILLATOR (ICD) INSTRUCTIONS 1. Incision should be kept clean and dry. Please notify us if the site becomes red, swollen, develops drainage, or if you begin having a fever or chills before your 1 week appointment. 2. May shower- avoid running water directly on your incision. 3. Do NOT stop antibiotics. If you have problems with them, please call. 4. Call with any symptoms of dizziness, lightheadedness, or passing out. 5. You may use the involved arm but you must avoid reaching backwards with the involved arm for 6 weeks[address] 6[address] to place your pacemaker/ICD implant card in your wallet/purse to carry with you at all times. You will receive this card in 6-8 weeks by mail. 7. You may resume driving in 2 weeks. 8. Continue all your home medications and the prescribed antibiotics per the medication reconciliation form. APPOINTMENT: 1. Office visit with nurse for incision check in the [facility] Office on [facility] on 09/25/2022 at 11:00am. 2. Chest x-ray to be done the same day as your device check at [facility] on 12/24/2022 . 3. Pacemaker/ICD clinic appointment at [facility] on 12/24/2022 at 9:00am. 4. Office visit with Dr. Lucero at [facility] in the [place] [facility] on [address] on 01/07/2023 at 10:50am. [][facility] Work Phone: Hospital Discharge instructions Additional Instructions SNF to manage: -PT/OT to eval and treat -Monitor VS per protocol -Fall precautions -Perform cardiovascular assessments -Care to be managed by SNF providers.[facility] Work Phone: Progress note Author Charlie Varner [facility] September 15, 2022 3:32pm Note Date/Time September 15, 2022 3:32p m [facility] [address] [place] [address] Hospitalist Progress Note Signed Patient: Tadeo Thomas MR#: [id number] : 1945 Acct:[id number] Age/Sex: 77 / M Adm Date: 3 Loc: Room: [address] [place] [address] Type: ADM IN Attending Dr: Charlie Varner MD Copies to: ~ Date of Service: 09/15/2022 Subjective Subjective Narrative: Patient seen and examined. Patient is comfortably resting in bed. Has not had any presyncopal episodes/dizziness since he came to the hospital. He is agreeable with pulmonary pacemaker placement. Exam Physical Exam Vital Signs: Temp Pulse Resp BP Pulse Ox O2 Del Method 98.0 F 60 18 146/78 H 97 Room Air 09/15/22 12:00 09/15/22 12:00 09/15/22 12:00 09/15/22 12:00 09/15/22 12:00 09/15/22 12:00 Narrative: General: Awake, alert, oriented x3 not in acute distress HEENT: Normocephalic, atraumatic, PERRLA, dry mucosa Cardiovascular: Regular rate and rhythm , S1-S2 heard, no murmurs or gallops Lungs: No wheezing or rhonchi heard Gastrointestinal: Soft, nontender, bowel sounds heard Extremities: No edema Neurological: no sensory or motor deficit Skin: Dry and warm, no rashes or lesions Psych: Normal mood and affect Objective Lab Results 09/15/22 05:24 09/15/22 05:24 Meds Allergies and Active Meds Allergies No Known Allergies Allergy (Verified 09/14/22 17:03) Active Meds: Active Medications Generic Name Dose Route Start Last Admin Trade Name Kranthiq PRN Reason Stop Dose Admin Acetaminophen 650 mg 09/14/22 20:24 Acetaminophen 325 Mg Tablet PO 09/14/23 20:23 Q6HR PRN Pain Scale 1 - 3 or fever Folic Acid 1 mg 09/15/22 09:00 09/15/22 08:28 Folic Acid 1 Mg Tablet PO 09/15/23 08:59 1 mg DAILY ROBERTO Administration Hydralazine HCl 10 mg 09/14/22 20:24 Hydralazine 20 Mg/Ml Vial IV-PUSH 09/14/23 20:23 Q4H PRN Hypertension Linagliptin 5 mg 09/15/22 09:00 09/15/22 08:28 Linagliptin 5 Mg Tablet PO 09/15/23 08:59 5 mg DAILY ROBERTO Administration Losartan Potassium 25 mg 09/15/22 09:00 09/15/22 08:28 Losartan 25 Mg Tablet PO 09/15/23 08:59 25 mg DAILY ROBERTO Administration Metoprolol Succinate 25 mg 09/14/22 21:00 09/15/22 08:28 Metoprolol Succinate 25 Mg Tab.Er.24h PO 09/14/23 20:59 25 mg BID ROBERTO Administration Pioglitazone HCl 30 mg 09/15/22 09:00 09/15/22 08:28 Pioglitazone 30 Mg Tablet PO 09/15/23 08:59 30 mg DAILY ROBERTO Administration Potassium Chloride 40 meq 09/14/22 20:24 Potassium Chloride Er 20 Meq Tab.Er.Prt PO 09/14/23 20:23 DAILY PRN Hypokalemia Pravastatin Sodium 80 mg 09/15/22 22:00 Pravastatin 40 Mg Tablet PO 09/15/23 21:59 HS ROBERTO Sodium Chloride 0 ml 09/14/22 20:45 09/14/22 20:54 Sodium Chloride 0.9 % 10 Ml Syringe IV-PUSH 09/14/23 20:44 10 ml PRN PRN Administration Flush Zolpidem Tartrate 5 mg 09/14/22 23:45 09/14/22 23:34 Zolpidem 5 Mg Tablet PO 03/13/23 23:44 5 mg QHS ROBERTO Administration A&P - Hospitalist Assessment/Plan (1) Tachy-rosette syndrome: (2) Tachyarrhythmia: (3) Near syncope: Plan Patient is asymptomatic since he came in Cardiology on board. Patient found to have symptomatic bradycardia with Mobitz type II heart block with intermittent rapid atrial flutter consistent with symptomatic sick sinus syndrome Plan to observe the patient for 24 hours on telemetry while he is off of any negative chronotropic agents, plan for permanent pacemaker implantation if patient continues to have current cardiac rhythm DVT prophylaxis CODE STATUS full code Documented By: Charlie Varner MD 09/15/22 1527 Signed By: <Electronically signed by Charlie Varner MD> 09/15/22 1532 [facility] Work Phone: Progress note Author Tae Dietrich [facility] September 16, 2022 10:34am Note Date/Time September 16, 2022 10:34 am [facility] [address] [place] [address] Cardiology Progress Note Signed Patient: Tadeo Thomas MR#: [id number] : 1945 Acct:[id number] Age/Sex: 77 / M Adm Date: 3 Loc: Room: [address] [place] [address] Type: ADM IN Attending Dr: Charlie Varner MD Copies to: ~ Date of Service: 09/16/2022 Subjective Principal diagnosis: Symptomatic sick sinus syndrome Interval history: Mr. Thomas is doing well this morning. No complaints other than being bored whilesitting here in the hospital. No chest pain or other anginal symptoms. No lightheadedness dizziness presyncope or syncope. Telemetry monitoring continuesto show intermittent Mobitz 2 heart block. No further atrial fib/flutter noted. No new complaints or issues Exam Physical Exam Vital Signs: Temp Pulse Resp BP Pulse Ox O2 Del Method 97.7 F 73 18 133/64 98 Room Air 09/16/22 04:00 09/16/22 09:44 09/16/22 09:44 09/16/22 09:44 09/16/22 09:44 09/16/22 09:44 Objective Labs 09/15/22 05:24 09/15/22 05:24 Labs: Laboratory Results - last 24 hr 09/14/22 17:22 Estimat Average Glucose 180 Hemoglobin A1c 7.9 H A&P - Cardiology (1) Tachy-rosette syndrome: Assessment/Problem Details: Symptomatic bradycardia with Mobitz type II heart block with intermittent rapid atrial flutter. All consistent with symptomatic sick sinus syndrome. Code(s): I49.5 - Sick sinus syndrome Status: Acute Plan: 1. Risk stratification today with Lexiscan pharmacologic stress with nuclear myocardial perfusion SPECT imaging. 2. Plan for permanent pacemaker implantation tomorrow. (2) Near syncope: Assessment/Problem Details: Very likely due to bradycardic episodes in the setting of sick sinus syndrome with intermittent Mobitz type II heart block. Code(s): R55 - Syncope and collapse Status: Acute Plan: This will being an indication for permanent pacemaker implantation. Plan as above. Plan Thank you very much for this kind consultation and for allowing me to participate in the care of this very pleasant patient and his family Time spent with patient Time Spent With Patient (min): 20 Documented By: Tae Dietrich MD 09/16/22 1032 Signed By: <Electronically signed by Tae Dietrich MD> 09/16/22 1034 [facility] Work Phone: Prokzaeh note Author La Loza [facility] September 16, 2022 3:07pm Note Date/Time September 16, 2022 3:07p m [facility] [address] [place] [address] Anesthesia Progress Note Signed Patient: Tadeo Thomas MR#: [id number] : 1945 Acct:[id number] Age/Sex: 77 / M Adm Date: 3 Loc: Room: [address] [place] [address] Type: ADM IN Attending Dr: Charlie Varner MD Copies to: ~ Anesthesia Progress Note Narrative Narrative: Chart review completed. Pending Lexiscan Stress. Otherwise, Pt appears to be optimized for planned pacemaker placement tomorrow. Documented By: LA LOZA DO 09/16/22 1506 Signed By: <Electronically signed by LA LOZA DO> 09/16/22 1503 [facility] Work Phone: Prootelz note Author Charlie Varner [facility] September 16, 2022 3:55pm Note Date/Time September 16, 2022 3:55p m [facility] [address] [place] [address] Hospitalist Progress Note Signed Patient: Tadeo Thomas MR#: [id number] : 1945 Acct:[id number] Age/Sex: 77 / M Adm Date: 3 Loc: 3T Room: [address] [place] [address] Type: ADM IN Attending Dr: Charlie Varner MD Copies to: ~ Date of Service: 09/16/2022 Subjective Subjective Narrative: Patient seen and examined. Patient is comfortably resting in bed. Has not had any presyncopal episodes/dizziness since he came to the hospital. He is agreeable with pulmonary pacemaker placement. Exam Physical Exam Vital Signs: Temp Pulse Resp BP Pulse Ox O2 Del Method 97.8 F 51 L 18 133/70 98 Room Air 09/16/22 15:26 09/16/22 15:26 09/16/22 15:26 09/16/22 15:26 09/16/22 15:26 09/16/22 15:26 Narrative: General: Awake, alert, oriented x3 not in acute distress HEENT: Normocephalic, atraumatic, PERRLA, dry mucosa Cardiovascular: Regular rate and rhythm , S1-S2 heard, no murmurs or gallops Lungs: No wheezing or rhonchi heard Gastrointestinal: Soft, nontender, bowel sounds heard Extremities: No edema Neurological: no sensory or motor deficit Skin: Dry and warm, no rashes or lesions Psych: Normal mood and affect Objective Lab Results 09/15/22 05:24 09/15/22 05:24 Meds Allergies and Active Meds Allergies No Known Allergies Allergy (Verified 09/14/22 17:03) Active Meds: Active Medications Generic Name Dose Route Start Last Admin Trade Name Freq PRN Reason Stop Dose Admin Acetaminophen 650 mg 09/14/22 20:24 Acetaminophen 325 Mg Tablet PO 09/14/23 20:23 Q6HR PRN Pain Scale 1 - 3 or fever Folic Acid 1 mg 09/15/22 09:00 09/16/22 09:41 Folic Acid 1 Mg Tablet PO 09/15/23 08:59 1 mg DAILY ROBERTO Administration Hydralazine HCl 10 mg 09/14/22 20:24 Hydralazine 20 Mg/Ml Vial IV-PUSH 09/14/23 20:23 Q4H PRN Hypertension Gentamicin Sulfate 160 mg/ 104 mls @ 208 mls/hr 09/17/22 13:30 Sodium Chloride IV 09/17/22 13:31 PREOP ONE Sodium Chloride 1,000 mls @ 20 mls/hr 09/17/22 15:00 0.9% Sodium Chloride 1,000 Ml IV 09/17/23 14:59 .Q24H ROBERTO Vancomycin HCl 1.25 gm/ 275 mls @ 183.333 mls/hr 09/17/22 13:00 Dextrose IV 09/17/22 14:29 PREOP ONE Protocol Linagliptin 5 mg 09/15/22 09:00 09/16/22 09:41 Linagliptin 5 Mg Tablet PO 09/15/23 08:59 5 mg DAILY ROBERTO Administration Losartan Potassium 25 mg 09/15/22 09:00 09/16/22 09:41 Losartan 25 Mg Tablet PO 09/15/23 08:59 25 mg DAILY ROBERTO Administration Metoprolol Succinate 25 mg 09/14/22 21:00 09/16/22 09:44 Metoprolol Succinate 25 Mg Tab.Er.24h PO 09/14/23 20:59 25 mg BID ROBERTO Administration Pioglitazone HCl 30 mg 09/15/22 09:00 09/16/22 09:41 Pioglitazone 30 Mg Tablet PO 09/15/23 08:59 30 mg DAILY ROBERTO Administration Potassium Chloride 40 meq 09/14/22 20:24 Potassium Chloride Er 20 Meq Tab.Er.Prt PO 09/14/23 20:23 DAILY PRN Hypokalemia Pravastatin Sodium 80 mg 09/15/22 22:00 09/15/22 22:02 Pravastatin 40 Mg Tablet PO 09/15/23 21:59 80 mg HS ROBERTO Administration Sodium Chloride 0 ml 09/14/22 20:45 09/16/22 15:29 Sodium Chloride 0.9 % 10 Ml Syringe IV-PUSH 09/14/23 20:44 10 ml PRN PRN Administration Flush Sodium Chloride 0 ml 09/16/22 09:57 Sodium Chloride 0.9 % 10 Ml Syringe IV-PUSH 09/16/23 09:56 PRN PRN Flush Sodium Chloride 0 ml 09/16/22 11:09 Sodium Chloride 0.9 % 10 Ml Syringe IV-PUSH 09/16/23 11:08 PRN PRN Flush Zolpidem Tartrate 5 mg 09/14/22 23:45 09/15/22 22:02 Zolpidem 5 Mg Tablet PO 03/13/23 23:44 5 mg QHS ROBERTO Administration A&P - Hospitalist Assessment/Plan (1) Tachy-rosette syndrome: (2) Tachyarrhythmia: (3) Near syncope: Plan Patient is asymptomatic since he came in Cardiology on board. Patient found to have symptomatic bradycardia with Mobitz type II heart block with intermittent rapid atrial flutter consistent with symptomatic sick sinus syndrome Plan to observe the patient for 24 hours on telemetry while he is off of any negative chronotropic agents, plan for permanent pacemaker implantation if patient continues to have current cardiac rhythm Plan for Lexiscan stress test today for risk stratification DVT prophylaxis CODE STATUS full code Documented By: Charlie Varner MD 09/16/22 1553 Signed By: <Electronically signed by Charlie Varner MD> 09/16/22 1552 [facility] Work Phone: Progress note Author Jennifer Cruz [facility] February 03, 2023 10:49am Note Date/Time February 03, 2023 10:48am [facility] [address] [place] [address] Hospitalist Progress Note Signed Patient: Tadeo Thomas MR#: [id number] : 1945 Acct:[id number] Age/Sex: 78 / M Adm Date: 3 Loc: Room: [address] [place] [address] Type: ADM INOo Attending Dr: Jennifer Cruz MD Copies to: ~ Date of Service: 02/03/2023 Subjective Subjective Narrative: 78-year-old white male past medical history of obesity, hypertension, diabetes type 2, hyperlipidemia, A-fib, sick sinus syndrome syndrome, status post pacemaker, who presents to emergency room from his primary care physician officefor evaluation for generalized weakness, exertional dyspnea, and hypotension andtachycardia in the office. Has a routine work-up which showed magnesium 1.4 anddigoxin was undetectable. Patient been feeling weak for the last 3 days. He isbeing dizzy. He has been complaining of exertional dyspnea. No orthopnea or PND. No chest pain. No cough. No fever or chills. He denies any nausea vomiting. No abdominal pain. No diarrhea. He denies having dysuria, hematuria, or frequency. Upon presentation to emergency room he did have regular wide complex tachycardia. Patient was given small dose of Lopressor. His QT was prolonged and he was given 2 g of magnesium and a small IV fluid bolus. His CBC was unremarkable. BMP showed mild hyponatremia 134 otherwise unremarkable. And it was negative. 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 Digoxin level was negative. Chest x-ray was clear no acute finding. Patient was given digoxin in the emergency room. His heart rate is better controlled now. It looks like his pacemaker is not capturing. Patient was admitted to the hospitalfor observation with telemetry. Doing better No complaint No chest pain or shortness of breath Heart rate is better controlled No dizziness Exam Physical Exam Vital Signs: Temp Pulse Resp BP Pulse Ox O2 Del Method 97.4 F L 74 18 145/74 H 96 Room Air 02/03/23 08:29 02/03/23 09:47 02/03/23 08:29 02/03/23 09:47 02/03/23 08:29 02/03/23 08:31 Narrative: General patient laying in bed in no acute distress alert awake oriented x3 HEENT PERRLA Neck supple no JVD no carotid bruit CVS S1-S2 irregular rate and rhythm no murmur no gallop Chest clear to auscultation percussion Abdomen soft bowel sounds normoactive no rebound no guarding Extremities no stenosis no clubbing no edema Musculoskeletal exam normal no joint effusion Neurologic exam oriented x3 alert awake no focal left Psychiatry: Normal insight and judgment Objective Lab Results 02/02/23 11:35 02/03/23 06:27 Meds Allergies and Active Meds Allergies No Known Allergies Allergy (Verified 02/02/23 11:51) Active Meds: Active Medications Generic Name Dose Route Start Last Admin Trade Name Freq PRN Reason Stop Dose Admin Acetaminophen 650 mg 02/02/23 15:27 Acetaminophen 325 Mg Tablet PO 02/02/24 15:26 Q6HR PRN Pain Scale 1 - 3 or fever Apixaban 5 mg 02/02/23 21:00 02/03/23 08:36 Apixaban 5 Mg Tablet PO 02/02/24 20:59 5 mg BID ROBERTO Administration Bisacodyl 10 mg 02/02/23 15:27 Bisacodyl 5 Mg Tablet.Dr PO 02/02/24 15:26 DAILY PRN Constipation Flecainide Acetate 50 mg 02/03/23 10:38 Flecainide Acetate 50 Mg Tablet PO 02/03/23 10:39 ONCE ONE Flecainide Acetate 50 mg 02/03/23 21:00 Flecainide Acetate 50 Mg Tablet PO 02/03/24 20:59 BID ROBERTO Glipizide 10 mg 02/02/23 17:00 02/03/23 08:36 Glipizide 5 Mg Tablet PO 02/02/24 16:59 10 mg BID.WITH.MEALS ROBERTO Administration Diltiazem HCl 100 mg in 100 mls @ 5 mls/hr 02/03/23 09:30 02/03/23 09:47 Cardizem IV 02/03/24 09:29 5 mg/hr .Q20H ROBERTO 5 mls/hr Administration Protocol 5 MG/HR Sodium Chloride 1,000 mls @ 20 mls/hr 02/03/23 09:30 02/03/23 10:01 0.9% Sodium Chloride 1,000 Ml IV 02/03/24 09:29 20 mls/hr .Q24H ROBERTO Administration Linagliptin 5 mg 02/03/23 09:00 02/03/23 08:36 Linagliptin 5 Mg Tablet PO 02/03/24 08:59 5 mg DAILY ROBERTO Administration Melatonin 5 mg 02/02/23 15:27 02/02/23 21:08 Melatonin 5 Mg Tablet PO 02/02/24 15:26 5 mg QHS PRN Administration Insomnia Metformin HCl 1,000 mg 02/03/23 08:00 02/03/23 08:36 Metformin 500 Mg Tablet PO 02/03/24 07:59 1,000 mg DAILY.WITH.BKFAST ROBERTO Administration Ondansetron HCl 4 mg 02/02/23 15:27 Ondansetron 4 Mg/2 Ml Vial IV-PUSH 02/02/24 15:26 Q8H PRN Nausea And Vomiting Pioglitazone HCl 30 mg 02/03/23 09:00 02/03/23 08:36 Pioglitazone 30 Mg Tablet PO 02/03/24 08:59 30 mg DAILY ROBERTO Administration Pravastatin Sodium 80 mg 02/03/23 09:00 02/03/23 08:37 Pravastatin 40 Mg Tablet PO 02/03/24 08:59 80 mg DAILY ROBERTO Administration Sodium Chloride 0 ml 02/02/23 11:50 02/02/23 12:21 Sodium Chloride 0.9 % 10 Ml Syringe IV-PUSH 02/02/24 11:49 10 ml PRN PRN Administration Flush A&P - Hospitalist Assessment/Plan (1) Tachyarrhythmia: (2) Tachy-rosette syndrome: (3) Diabetes type 2, controlled: (4) Hyperlipemia: Plan 78-year-old white male past medical history of obesity, hypertension, diabetes type 2, hyperlipidemia, A-fib, sick sinus syndrome syndrome, status post pacemaker, who presents to emergency room from his primary care physician officefor evaluation for generalized weakness, exertional dyspnea, and hypotension andtachycardia in the office. Has a routine work-up which showed magnesium 1.4 anddigoxin was undetectable. Patient been feeling weak for the last 3 days. He isbeing dizzy. He has been complaining of exertional dyspnea. No orthopnea or PND. No chest pain. No cough. No fever or chills. He denies any nausea vomiting. No abdominal pain. No diarrhea. He denies having dysuria, hematuria, or frequency. Upon presentation to emergency room he did have regular wide complex tachycardia. Patient was given small dose of Lopressor. His QT was prolonged and he was given 2 g of magnesium and a small IV fluid bolus. His CBC was unremarkable. BMP showed mild hyponatremia 134 otherwise unremarkable. And it was negative. 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 Digoxin level was negative. Chest x-ray was clear no acute finding. Patient was given digoxin in the emergency room. His heart rate is better controlled now. It looks like his pacemaker is not capturing. Patient was admitted to the hospitalfor observation with telemetry. IMP Tachybradycardia syndrome Generalized weakness Hypotension Seen and examined Clinically better Heart rate is better controlled Seen by cardiology Digoxin was stopped On Cardizem infusion at 5 mg/h Started on flecainide Changed to inpatient status PT OT evaluation Sick sinus syndrome status post pacemaker: As above Obesity: Lifestyle modification Hypertension: Hold losartan and Cardizem due to hypotension Diabetes type 2: Accu-Chek ACHS/insulin sliding scale/resume glipizide and metformin Hyperlipidemia: Resume statin PT OT evaluation Documented By: Jennifer Cruz MD 02/03/23 1046 Signed By: <Electronically signed by Jennifer Cruz MD> 02/03/23 1049 [facility] Work Phone: Reason for referral (narrative)* Consultation (Routine) - Authorized Specialty Diagnoses / Procedures Referred By Contac t Referred To Contact Cardiology Diagnoses Paroxysmal atrial fibrillation (CMS/HCC) Procedures Follow Up In Cardiology Ketan Lucero MD [address] [facility] [address] [place] [address] Ketan Lucero MD [address] [place] [address] [address], [address] [place] [address] Referral ID Status Reason Start Date Expiration Date V isits Requested Visits Authorized [id number] Authorized 01/07/2023 01/07/2024 1 1 [facility] [place] [facility] Work Phone: Reckye for referral (narrative)* Consultation (Routine) - Authorized Specialty Diagnoses / Procedures Referred By Contac t Referred To Contact Cardiology Diagnoses Atrial fibrillation, unspecified type (CMS/HCC) Procedures Follow Up In Cardiology Ketan Lucero MD [address] [facility] [address], [address] [place] [id number] Ketan Lucero MD [address] [place] [address] [address], [address] [address] Referral ID Status Reason Start Date Expiration Date V isits Requested Visits Authorized [id number] Authorized 03/01/2023 02/29/2024 1 1 * Cardiovascular (Routine) - Pending Review Specialty Diagnoses / Procedures Referred By Contac t Referred To Contact Diagnoses Atrial fibrillation, unspecified type (CMS/HCC) Procedures ECG 12 Lead Ketan Lucero MD [address] [facility] [address], [address] [place] [id number] Referral ID Status Reason Start Date Expiration Date V isits Requested Visits Authorized [id number] Pending Review 03/01/2023 02/29/2024 1 1 [facility] Work Phone: Assessments No Assessments Information Available Summary Purpose Family History Unknown Family Member Name Dates Details Family history of dementia: Mother(V17.2, Z81.8) Status:Active Family history of diabetes m ellitus: Father(V18.0, Z83.3) Status:Active No pertinent family history: Sister(V49.89, Z78.9) Status:Active Unknown Family Member Name Dates Details Family history of dementia: Mother(V17.2, Z81.8) Status:Active Family history of diabetes m ellitus: Father(V18.0, Z83.3) Status:Active No pertinent family history: Sister(V49.89, Z78.9) Status:Active Unknown Family Member Name Dates Details Family history of dementia: Mother(V17.2, Z81.8) Status:Active Family history of diabetes m ellitus: Father(V18.0, Z83.3) Status:Active No pertinent family history: Sister(V49.89, Z78.9) Status:Active Unknown Family Member Name Dates Details Family history of dementia: Mother(V17.2, Z81.8) Status:Active Family history of diabetes m ellitus: Father(V18.0, Z83.3) Status:Active No pertinent family history: Sister(V49.89, Z78.9) Status:Active Unknown Family Member Name Dates Details Family history of dementia: Mother(V17.2, Z81.8) Status:Active Family history of diabetes m ellitus: Father(V18.0, Z83.3) Status:Active No pertinent family history: Sister(V49.89, Z78.9) Status:Active Unknown Family Member Name Dates Details Family history of dementia: Mother(V17.2, Z81.8) Status:Active Family history of diabetes m ellitus: Father(V18.0, Z83.3) Status:Active No pertinent family history: Sister(V49.89, Z78.9) Status:Active Relationship Condition Age at Onset Recorded Date/T yazmin father Dementia Unknown Diabetes mellitus Unknown brother Diabetes mellitus Unknown Advance Directives Advance Directive Response Recorded Date/ Time Advance Directives Yes May 25 2:21pm Advance Directive Response Recorded Date/ Time Advance Directives Yes May 25 1:21pm Chief Complaint and Reason for Visit Chief Complaint r00.9 r94.31 eval Reason for Visit Bigeminy Near syncope Sinus arrhythmia Tachy-rosette syndrome Tachyarrhythmia Chief Complaint Syncope Hypotension Reason for Visit Acute hypotension Non-sustained ventricular tachycardia Sick sinus syndrome SVT (supraventricular tachycardia) Chief Complaint Syncope Hypotension Reason for Visit Acute hypotension Diabetes type 2, controlled Hyperlipemia Non-sustained ventricular tachycardia Sick sinus syndrome SVT (supraventricular tachycardia) Tachy-rosette syndrome Tachyarrhythmia Chief Complaint Patient is here s/p first pacemaker insertion done by Dr. Ketan Lucero MD at [facility] on 09/17/2022. Dr. Samra Garza MD in suite. Patient denies any cardiac complaints, states shortness of breath has significantly improved since discharge. Patient did not bring medication list. Reviewed hospital consult note and reviewed verbally with patient. Patient was prescribed Clindamycin at dischargeand finished. Insertion site was free of any signs of infection or drainage. Insertion site was reviewed by [facility] RN prior to discharge. To Dr. Ketan Lucero MD for review.* Hospital f/u: 'things seem to have settled down' * TADEO THOMAS is being seen for atrial flutter. * Hospital f/u: 'things seem to have settled down' * TADEO THOMAS is being seen for atrial flutter. * Patient presents to the office today accompanied by . * This is initial in clinic follow-up at [facility]. * Throughout the summer patient reports dizziness and shortness of breath and frequent falls. PCP completed a Holter monitor and echocardiogram. The Holter monitor showed 2-1 atrial flutter and patientwas instructed to present to local hospital. * September 2022 at [facility] seen in consult Dr. Dietrich d/t 2:1 atrial flutter and Mobitz II. * Outpatient echo: EF 55, LVH mild * Inpatient MPI: no ischemia, fixed inferior defect 18% artifact vs. ND * September 17, 2022 impant Pearson 2272 dual chamber PPM. * At discharge added toprol, digoxin and diltiazem. * Wound check completed by MA: site examined today and well-healed, device has a easily palpable. * September 30, 2022: Dr. Lucero added Eliquis to medical regimen after discussing Holter results with PCP. * Since discharge patient reports 2 spells that were not that bad . There is no syncopal episode or fall, simply reports some mild dizziness. The reports significant fatigability and sleeping all the time . Patient has some mild neurocognitive decline and remains extremely pleasant but is somewhat of a difficult historian. He simply reports I am just tired . He did ambulate in from the parking lot without voiced complaints. He sleeps in the bed without orthopnea or PND. Reports prior sleep apnea but intolerant to CPAP. The is concerned regarding this change in exercise capacity and fatigability. * He did start Eliquis and denies any type of melena or bleeding events. [facility] coverage [facility]. * Since discharge they reported 10 pound weight loss. * ECG in office today AV paced, QRS 166. * Standing BP 90/60. * 2:1 atrial flutter: ablation not optimal option due to frailty. * For now we will hold losartan due to postural orthostatic hypotension. * Question if Toprol contributing fatigability but hesitant to reduce AV sandra agents due to 2:1 atrial flutter. Will check remote device interrogation. * Labs. * Limited echo * 6 week f/u: 'seem to be doing better' * TADEO THOMAS is being seen for a 6 week follow-up of fatigue. * Patient presents to the office ambulatory with cane and steady gait, is accompanied by his . * Last evaluated in clinic by myself October 2022. At that time patient complained of persistent fatigability. * Subsequent hemoglobin 11.3, creatinine 0.86, Dig 0.5. Limited echo with LVEF 50%. * His blood pressure was slightly low and I was hesitant to discontinue metoprolol due to atrial flutter and opted to discontinue losartan. Fortunately, the misunderstood the instructions and she discontinued metoprolol and the patient presents today feeling so much better . His blood pressure has increased, recent device interrogation without evidence of tachyarrhythmia. * He presents today reporting increased energy and overall functional capacity, the verifies andthey are very pleased with how things have progressed. He remains some very mild neurocognitive decline and is extremely pleasant was able to ambulate in from the parking lot without complaints, denies any orthopnea or PND. Reports prior sleep apnea but intolerant to CPAP. Noted improvement in overall exercise capacity and fatigability. He has had no additional syncopal episodes, dizziness or lightheaded. No recurrent falls. * He is now 3 months post device implant with 3-month chest x-ray and device interrogation unremarkable. * Cardiovascular history: * September 2022 at [facility] seen in consult Dr. Dietrich d/t 2:1 atrial flutter and Mobitz II. * Inpatient MPI: no ischemia, fixed inferior defect 18% artifact vs. ND * September 17, 2022 implant Pearson 2272 dual chamber PPM. * September 2022 Echo EF 55%: mild LVH * Oct 2022 limited Echo EF 50% * PAFL: no prior AA * CHADS VASc: 4 anticoagulated full dose Eliquis 77y/o, cr 0.86. Denies bleeding diatheses. * November 2022 device interrogation V-paced 64%, no atrial arrhythmias noted. * Primary Prevention: * HTN - optimal * [facility] * DM - on ARB/statin. Unknown HgA1c * Plan today will be to simplify short acting diltiazem dosage to extended release, will remain off metoprolol. * For ease of scheduling, will keep follow-up scheduled with Dr. Miller next month. Additional Source Comments (unrecognized sect ion and content) No Status Records FoundNo Status Records FoundNo Status Records FoundNo Status Records FoundNo Status Records FoundNo Status Records FoundNo Status Records FoundNo Status Records Found INFORMATION SOURCE (unrecogn ized section and content) DATE CREATED AUTHOR 04/22/2021 [facility] dical Specialist DATE CREATED AUTHOR AUTHOR'S ORGANIZ ATION 05/12/2021 [facility] DATE CREATED AUTHOR AUTHOR'S ORGANIZ ATION 11/23/2022 [facility] DATE CREATED AUTHOR AUTHOR'S ORGANIZ ATION 11/27/2022 [facility] DATE CREATED AUTHOR AUTHOR'S ORGANIZ ATION 11/27/2022 [facility] DATE CREATED AUTHOR AUTHOR'S ORGANIZ ATION 12/20/2022 [facility] DATE CREATED AUTHOR AUTHOR'S ORGANIZ ATION 02/13/2023 [facility] DATE CREATED AUTHOR AUTHOR'S ORGANIZ ATION 03/03/2023 [facility] 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 Teams (unrecognized sec tion and content) Team Status: Active Member Role Status Caterina Pedroza MD Primary Care Provider Active Team Status: Inactive Member Role Status Caterina Pedroza MD Primary Care Provider Active Uriah Wang DO Emergency Provider Active Charlie Varner MD Admit Provider, Attending Provider A timothy Gray RN Other Provider Active Farshad Varela DO Other Provider Active Fior Saleem MD Other Provider Active Ketan Lucero MD Other Provider Active Samra Garza MD Other Provider Active Kelvin Gil MD Other Provider Active Olga Wyatt APRN Other Provider Active Cheryl Das MD Other Provider Active Nabeel Ojeda MD Other Provider Active Nikolay Barragan MD Other Provider Active Adelaida Carreon [facility] Other Provider Active Izabella Henderson MD Other Provider Active Team Status: Inactive Member Role Status Caterina Pedroza MD Primary Care Provider, Attending Prov ider Active Team Status: Active Member Role Status Caterina Pedroza MD Primary Care Provider Active Uriah Wang DO Emergency Provider Active Charlie Varner MD Admit Provider, Attending Provider A timothy Gray RN Other Provider Active Farshad Varela DO Other Provider Active Fior Saleem MD Other Provider Active Ketan Lucero MD Other Provider Active Samra Garza MD Other Provider Active Kelvin Gil MD Other Provider Active Olga Wyatt APRN Other Provider Active Cheryl Das MD Other Provider Active Nabeel Ojeda MD Other Provider Active Nikolay Barragan MD Other Provider Active Adelaida Carreon [facility] Other Provider Active Izabella Henderson MD Other Provider Active Cardiograph Operator Relationship Specialty Start Date End Date Aracelis Pedroza MD [address] [place] [address] PCP - General 7/14/23 Team Status: Inactive Member Role Status Dates Aracelis Pedroza MD Primary Care Provider Active Ketan Lucero MD Attending Provider Active Team Status: Active Member Role Status Dates Aracelis Pedroza MD Primary Care Provider Active Nicolas Zavala , Emergency Provider Active Jennifer Cruz MD Admit Provider, Attending Provider A ctive Team Status: Inactive Member Role Status Dates Aracelis Pedroza MD Primary Care Provider Active Nicolas Zavala , Emergency Provider Active Jennifer Cruz MD Admit Provider Active Miguel Hinson MD Attending Provider Active Cardiograph Operator Relationship Specialty Start Date End Date Aracelis Pedroza MD [address] [place] [address] PCP - General 09/25/22 Goals (unrecognized section and content) Goals may be documented in a n alternate sectionGoals may be documented in an alternate section Reason for Visit (unrecogniz ed section and content) Reason Comments Follow-up 15 week PCM Reason Comments Follow-up [facility] discharge 02-05 Specialty Diagnoses / Procedures Referred By Contac t Referred To Contact Cardiology Diagnoses Atrial fibrillation, unspecified type (CMS/HCC) Procedures Follow Up In Cardiology Samra Garza MD [address] [place] [address], [address] [address] Ketan Lucero MD [address] [place] [address] 2, [address] [address] Referral ID Status Reason Start Date Expiration Date V isits Requested Visits Authorized [id number] Authorized 02/05/2023 02/05/2024 1 1 FOR RECORDS PERTAINING TO PATIENTS WHO ARE OR HAVE BEEN ENROLLED IN A CHEMICAL DEPENDENCY/SUBSTANCEABUSE PROGRAM, SOME INFORMATION MAY BE OMITTED. This clinical summary was aggregated from multiple sources. Caution should be exercised in using it in the provision of clinical care. This summary normalizes information from multiple sources, and as a consequence, information in this document may materially change the coding, format and clinical context of patient data. In addition, data may be omitted in some cases. CLINICAL DECISIONS SHOULD BE BASED ON THE PRIMARY CLINICAL RECORDS. [facility] [employer] provides no warranty or guarantee of the accuracy or completeness of information in this document.
[2023-03-18 16:44] VITALS: BP 143/83; PULSE 67; RESP 16; TEMP 36.4; O2SAT 98; BMI 23.7
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
== END 2023-03-18 18:07 | disposition home or self-care (01) ==
PROVIDERS: Emergency Provider Emergency Medicine; PCP Internal Medicine
DX: Z04.1 Encounter for examination and observation following transport accident (principal); Z87.891 Personal history of nicotine dependence; E78.5 Hyperlipidemia, unspecified; E11.9 Type 2 diabetes mellitus without complications; F03.90 Unspecified dementia, unspecified severity, without behavioral disturbance, psychotic disturbance, mood disturbance, and anxiety; Z95.0 Presence of cardiac pacemaker; Z79.01 Long term (current) use of anticoagulants; Z79.899 Other long term (current) drug therapy; Z79.84 Long term (current) use of oral hypoglycemic drugs
CPT/HCPCS: 99281

== ENCOUNTER 2023-04-19 21:04 | Inpatient (IN) | payer OTHER, SELFPAY ==
[2023-04-19] VITALS (20 sets, daily range): BP systolic 108–141; BP diastolic 52–80; PULSE 53–106; RESP 16–32; O2SAT 91–97; BMI 24.3
--- NOTE | 2023-04-19 | CT_ITS ---
The [address] [address] Patient Name: TADEO THOMAS MRN: [id number] date: 1945 Sex: M Assigned Patient Location: ER Current Patient Location: ED.MAIN Accession/Order Number: [id number] Exam Date: 04/19/2023 21:04 Report Date: 04/19/2023 21:48 At the request of: SONG RIDLEY Procedure: CT stroke head/brain wo con EXAM: CT stroke head/brain wo con HISTORY: CVA COMPARISON: None. TECHNIQUE: Axial CT scans through the head were obtained without IV contrast administration. Dose reduction techniques were achieved by using: automated exposure control and/or adjustment of mA and /or kV according to patient size and/or use of iterative reconstruction technique. FINDINGS: There is no evidence of acute intracranial hemorrhage or abnormal extra-axial fluid collection. No mass effect or midline shift is seen. There is no evidence of large acute territorial infarction. There is no hydrocephalus. There are remote lacunar infarcts in bilateral gilliam radiata and bilateral basal ganglia. Mild enlarged ventricles and sulci, consistent with age appropriate cerebral atrophy. Patchy areas of low-attenuation are present in supratentorial white matter, likely represents chronic microvascular ischemia. There are atherosclerotic calcifications of anterior and posterior circulations. To the limit of CT, the posterior fossa appears unremarkable. No definite acute fracture is identified. Soft tissues are unremarkable. The visualized orbits show no abnormality. There is status post right-sided lens replacement. The visualized paranasal sinuses show no air-fluid level. Mastoid air cells are clear. CT/CT stroke head/brain wo con IMPRESSION: No CT evidence of acute intracranial abnormality. If there is sufficient clinical concern for acute brain parenchymal pathology, consider MRI for further evaluation. Remote lacunar infarcts in bilateral gilliam radiata and bilateral basal ganglia. Chronic microvascular ischemia and involutional changes. Vascular calcifications. Electronically authenticated by: YU EDMONDSON Date: 04/19/2023 21:48
--- NOTE | 2023-04-19 21:14 | ECG_ITS ---
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
--- OUTSIDE RECORDS SUMMARY | 2023-04-19 21:14 | XMS_ITS | CCD ---
Author Name Unknown Address [address] [place] [address] Organization [facility] Care Team Providers Care Project Manager Process Development Name Role Phone MD Aracelis Pedroza Primary Care Provider MD Aracelis Pedroza Attending Provider [phone] DO Uriah Wang Emergency Provider MD Charlie Varner Admit Provider MD Charlie Varner Attending Provider [phone] FLORENCE Gray Other Provider Unavailable DO Farshad Varela Other Provider [phone] MD Fior Saleem Other Provider MD Ketan Lucero Other Provider MD Samra Garza Other Provider MD Kelvin Gil Other Provider RICARDO Landon Other Provider MD Cheryl Das Other Provider MD Nabeel Ojeda Other Provider MD Nikolay Barragan Other Provider Velma [facility] Adelaida Goodson Other Provider [phone] MD [...] Unavailable Aracelis Pedroza MD Primary Care Provider [phone] MD Aracelis Pedroza Primary Care Provider [phone] MD Ketan Lucero Attending Provider DO Nicolas Zavala Emergency Provider MD Jennifer Morris Admit Provider MD Jennifer Cruz Attending Provider DO Nicolas Zavala Emergency Provider MD Jennifer Morris Admit Provider MD Miguel Hinson Attending Provider Miguel Hinson Attending Unavailable Shelly Gray Consulting Unavailable [facility] Primary Care Unavailable Alahmjaneth, Alaa Admitting Unavailable [...] Attending Unavailable Ketan Lucero Attending Unavail able [facility] Ketan Lucero Admitting Unavail able Ketan Lucero Attending Unavail able [facility] Aracelis Primary Care Unavailable Ketan Lucero Admitting Unavail able Telly, Charlie Admitting Unavailable Telly, Charlie Attending Unavailable Shelly Gray Consulting Unavailable [facility] Primary Care Unavailable Farshad Varela Consulting Unavailable [...] Referring Unavailable ARACELIS PEDROZA Primary Care Unavailable ARACELIS PEDROZA Attending Unavailable ARACELIS PEDROZA Referring Unavailable Unavailable Unavailable Unavailable Medications Current Medications [...] 30 MG PO Four times daily 120 30 September 17, 2022 11:00pm February 02, 2023 [...] Peroxisome Proliferator Receptor gamma Agonist, Thiazolidinedione Start: take 30 mg by mouth once daily Pioglitazone Active 30 MG PO Daily September 13, 2022 11:00pm pravastatin sodium 80 mg oral tablet (14 sources) HMG-CoA Reductase Inhibitor Start: take 80 mg by mouth once daily [...] 01-06-2023 01-07-2023 Episodic Other aftercare (2 sources) 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 [facility] Work Phone: Alanine aminotransferase [En zymatic activity/volume] in Serum or PlasmaOrdered By: Miguel Murdockr on 02-07-2023 ALT [Catalytic activity/Vol] 11 U/L 7-52 [facility] Albumin [Mass/volume] in Ser um or Plasma by Bromocresol green (BCG) dye binding methoOrdered By: Miguel Stevensomar on 02-07-2023 Albumin BCG dye [Mass/Vol] 3.7 g/dL 3.5-5.7 [facility] Alkaline phosphatase [Enzyma tic activity/volume] in Serum or PlasmaOrdered By: Obkatherine Stevensomar on 02-07-2023 ALP [Catalytic activity/Vol] 74 U/L 34-104 [facility] Aspartate aminotransferase [ Enzymatic activity/volume] in Serum or PlasmaOrdered By: Objacquidah Rodneyomar on 02-07-2023 AST [Catalytic activity/Vol] 13 U/L 13-39 [facility] Basophils Auto (Bld) [#/Vol] Ordered By: Objacquidajustino Stevensomar on 02-07-2023 Basophils (Bld) [#/Vol] 0.0 10*3/uL 0.0-0.2 [facility] Basophils/100 WBC Auto (Bld) Ordered By: Miguel Murdockr on 02-07-2023 Basophils/100 WBC (Bld) 0.2 % . [facility] Bilirubin.total [Mass/volume ] in Serum or PlasmaOrdered By: Objacquidajustino Daromar on 02-07-2023 Bilirubin [Mass/Vol] 0.4 mg/dL 0.3-1.0 [facility] Calcium [Mass/volume] in Ser um or PlasmaOrdered By: Obaydah Daromar on 02-07-2023 Calcium [Mass/Vol] 8.9 mg/dL 8.6-10.3 [facility] Carbon dioxide, total [Moles /volume] in Serum or PlasmaOrdered By: Objacquidah Daromar on 02-07-2023 CO2 [Moles/Vol] 28.3 mmol/L 21.0-31.0 [facility] Chloride [Moles/volume] in S estela or PlasmaOrdered By: Obaydah Daromar on 02-07-2023 Chloride [Moles/Vol] 102 mmol/L 98-107 [facility] Complete Blood Count Auto Di ffon 02-07-2023 Basophils (Bld) [#/Vol] 0.0 10*3/uL Normal 0.0-0.2 [facility] Comment on above: Result Comment: PERF ORMED BY: [facility] [address] [place] [address] PATHOLOGIST CURB WORKER KASSANDRA STACK M.D. Performed By: #### C BC, CMP ####[place] [id number] [facility] Basophils/100 WBC (Bld) 0.2 % Normal . [facility] Comment on above: Performed By: #### C BC, CMP ####[facility] [place] [address] [place] Eosinophils (Bld) [#/Vol] 0.1 10*3/uL Normal 0.0-0.45 [facility] Comment on above: Performed By: #### C BC, CMP ####[place] [address] [place] [id number] [facility] Eosinophils/100 WBC (Bld) 0.8 % Normal . [facility] Comment on above: Performed By: #### C BC, CMP ####[address] [address] [facility] Erythrocyte distribution width (RBC) [Ratio] 15.0 % High 12.0-14.8 [facility] Comment on above: Performed By: #### C BC, CMP ####[address] [address] [facility] Hematocrit (Bld) [Volume fraction] 35.2 % Low 38.8-50.0 [facility] Comment on above: Performed By: #### C ERICA, CMP ####[address] [address] [facility] Hemoglobin (Bld) [Mass/Vol] 11.8 g/dL Low 13.0-17.0 [facility] Comment on above: Performed By: #### C ERICA, CMP ####[place] [id number] [facility] Lymphocytes (Bld) [#/Vol] 5.6 10*3/uL High 1.00-4.8 [facility] Comment on above: Performed By: #### C ERICA, CMP ####[place] [id number] [facility] Lymphocytes/100 WBC (Bld) 48.1 % Normal . [facility] Comment on above: Performed By: #### C ERICA, CMP ####[address] [address] [facility] MCH (RBC) [Entitic mass] 33.0 pg Normal 27.5-35.2 [facility] Comment on above: Performed By: #### C ERICA, CMP ####[address] [address] [facility] MCV (RBC) [Entitic vol] 98.4 fL Normal 83.5-101 [facility] Comment on above: Performed By: #### C BC, CMP ####[place] [id number] [facility] Mean Corpuscular HGB Conc 33.5 g/dL Normal 32.5-35.6 [facility] Comment on above: Performed By: #### C ERICA, CMP ####[place] [address] [place] [address] [facility] Monocytes (Bld) [#/Vol] 0.8 10*3/uL Normal 0.0-0.8 [facility] Comment on above: Performed By: #### C BC, CMP ####[address] [place] [place] [address] [facility] Monocytes/100 WBC (Bld) 6.7 % Normal . [facility] Comment on above: Performed By: #### C ERICA, CMP ####[address] [address] [facility] Neutrophils (Bld) [#/Vol] 5.2 10*3/uL Normal 1.8-7.7 [facility] Comment on above: Performed By: #### C ERICA, CMP ####[address] [address] [facility] Neutrophils/100 WBC (Bld) 44.2 % Normal . [facility] Comment on above: Performed By: #### C ERICA, CMP ####[address] [address] [facility] NRBC% 0.2 /100{WBC} Normal 0-0.5 [facility] Comment on above: Performed By: #### C ERICA, CMP ####[address] [place] [address] [place] [address] [facility] Platelet mean volume (Bld) [Entitic vol] 7.8 fL Normal 6.6-10.1 [facility] Comment on above: Performed By: #### C ERICA, CMP ####[address] [place] [address] [place] [address] [place] Platelets (Bld) [#/Vol] 248 10*3/uL Normal 150-450 [facility] Comment on above: Performed By: #### C BC, CMP ####[address] [place] [place] [address] [facility] RBC (Bld) [#/Vol] 3.58 10*6/uL Low 3.90-5.60 [facility] Comment on above: Performed By: #### C BC, CMP ####[address] [address] [place] [address] [facility] WBC (Bld) [#/Vol] 11.7 10*3/uL High 4.1-10.5 [facility] Comment on above: Performed By: #### C BC, CMP ####[address] [address] [facility] Comprehensive Metabolic Pane christian 02-07-2023 Albumin [Mass/Vol] 3.7 g/dL Normal 3.5-5.7 [facility] Comment on above: Performed By: #### C ERICA, CMP ####[address] [place] [address] [place] [address] [facility] Albumin/Globulin [Mass ratio] 1.4 {ratio} Normal [facility] Comment on above: Performed By: #### C ERICA, CMP ####[address] [address] [facility] ALP [Catalytic activity/Vol] 74 U/L Normal 34-104 [facility] Comment on above: Performed By: #### C BC, CMP ####[address] [address] [facility] ALT [Catalytic activity/Vol] 11 U/L Normal 7-52 [facility] Comment on above: Performed By: #### C ERICA, CMP ####[address] [address] [facility] Anion gap [Moles/Vol] 11.4 mmol/L Normal 6.0-15.0 [facility] Comment on above: Performed By: #### C BC, CMP ####[address] [address] [facility] AST [Catalytic activity/Vol] 13 U/L Normal 13-39 [facility] Comment on above: Performed By: #### C BC, CMP ####[address] [address] [facility] Bilirubin [Mass/Vol] 0.4 mg/dL Normal 0.3-1.0 [facility] Comment on above: Performed By: #### C BC, CMP ####[facility] [place] [address] [facility] Calcium [Mass/Vol] 8.9 mg/dL Normal 8.6-10.3 [facility] Comment on above: Performed By: #### C BC, CMP ####[facility] [place] [address] [facility] Chloride [Moles/Vol] 102 mmol/L Normal 98-107 [facility] Comment on above: Performed By: #### C BC, CMP ####[place] [address] [place] [address] [facility] CO2 [Moles/Vol] 28.3 mmol/L Normal 21.0-31.0 [facility] Comment on above: Performed By: #### C BC, CMP ####[place] [address] [place] [id number] [facility] Creatinine [Mass/Vol] 0.87 mg/dL Normal 0.70-1.30 [facility] Comment on above: Performed By: #### C BC, CMP ####[place] [address] [place] [address] [place] Creatinine Clr Calc Pharmacy 66.61 [facility] Comment on above: Result Comment: PERF ORMED BY: [facility] [address] [place] [address] PATHOLOGIST CURB WORKER KASSANDRA STACK M.D. Performed By: #### C BC, CMP ####[place] [address] [place] [id number] [facility] GFR/1.73 sq M.predicted MDRD (S/P/Bld) [Vol rate/Area] mL/min/{1.73_m2} [facility] Comment on above: Performed By: #### C BC, CMP ####[place] [address] [place] [id number] [facility] Globulin (S) [Mass/Vol] 2.6 g/dL [facility] Comment on above: Performed By: #### C BC, CMP ####[place] [address] [place] [id number] [facility] Glucose [Mass/Vol] 99 mg/dL Normal 70-100 [facility] Comment on above: Result Comment: [facility] Glucose Reference Range is dependent on time and content of last meal. Glucose of more than 200 mg/dL in a nonstressed, ambulatory subject supports the diagnosis of Diabetes Mellitus. ADA recommended reference range Performed By: #### C BC, CMP ####[place] [id number] [facility] Potassium [Moles/Vol] 3.7 mmol/L Normal 3.5-5.1 [facility] Comment on above: Performed By: #### C ERICA, CMP ####[place] [address] [place] [id number] [facility] Protein [Mass/Vol] 6.3 g/dL Low 6.4-8.9 [facility] Comment on above: Performed By: #### C ERICA, CMP ####[place] [id number] [facility] Sodium [Moles/Vol] 138 mmol/L Normal 136-145 [facility] Comment on above: Performed By: #### C ERICA, CMP ####[place] [id number] [facility] Urea nitrogen [Mass/Vol] 14 mg/dL Normal 7-25 [facility] Comment on above: Performed By: #### C ERICA, CMP ####[place] [id number] [facility] Creatinine [Mass/volume] in Serum or PlasmaOrdered By: Miguel Hinson on 02-07-2023 Creatinine [Mass/Vol] 0.87 mg/dL 0.70-1.30 [facility] ECG 12 lead ECGon 02-07-2023 ECG 12 lead ECG [facility] [address] [place] [address] [place] [id number] Electrocardiograph Report Signed Patient: Tadeo Thomas MR#: [id number] 0 : 1945 Acct:[id number] Age/Sex: 78 / M ADM Date: 02/03/23 Loc: 3T Room: [address] [place] [address] Type: ADM IN Attending Dr: Miguel Hinson [...] Signed By Aracelis Perkins DO 02/07 Normal [facility] Eosinophils Auto (Bld) [#/Vo l]Ordered By: Miguel Hinson on 02-07-2023 Eosinophils (Bld) [#/Vol] 0.1 10*3/uL 0.0-0.45 [facility] Eosinophils/100 WBC Auto (Bl d)Ordered By: Miguel Hinson on 02-07-2023 Eosinophils/100 WBC (Bld) 0.8 % . [facility] Erythrocyte distribution wid th Auto (RBC) [Ratio]Ordered By: Miguel Hinson on 02-07-2023 Erythrocyte distribution width (RBC) [Ratio] 15.0 % 12.0-14.8 [facility] Globulin Calc (S) [Mass/Vol] Ordered By: Miguel Hinson on 02-07-2023 Globulin (S) [Mass/Vol] 2.6 g/dL [facility] Glucose [Mass/volume] in Ser um or PlasmaOrdered By: Miguel Hinson on 02-07-2023 Glucose [Mass/Vol] 99 mg/dL 70-100 [facility] Comment on above: ADA recommended refe rence rangeRandom Glucose Reference Range is dependent on time and content of last meal. Glucose of more than 200 mg/dL in a nonstressed, ambulatory subject supports the diagnosis of Diabetes Mellitus. Hematocrit Auto (Bld) [Volum e fraction]Ordered By: Miguel Hinson on 02-07-2023 Hematocrit (Bld) [Volume fraction] 35.2 % 38.8-50.0 [facility] Hemoglobin [Mass/volume] in BloodOrdered By: Miguel Hinson on 02-07-2023 Hemoglobin (Bld) [Mass/Vol] 11.8 g/dL 13.0-17.0 [facility] Leukocytes [#/volume] correc ale for nucleated erythrocytes in Blood by Automated counOrdered By: Miguel Hinson on 02-07-2023 WBC corrected for nucl RBC Auto (Bld) [#/Vol] 11.7 10*3/uL 4.1-10.5 [facility] Lymphocytes Auto (Bld) [#/Vo l]Ordered By: Miguel Hinson on 02-07-2023 Lymphocytes (Bld) [#/Vol] 5.6 10*3/uL 1.00-4.8 [facility] Lymphocytes/100 WBC Auto (Bl d)Ordered By: Miguel Hinson on 02-07-2023 Lymphocytes/100 WBC (Bld) 48.1 % . [facility] MCH Auto (RBC) [Entitic mass ]Ordered By: Miguel Hinson on 02-07-2023 MCH (RBC) [Entitic mass] 33.0 pg 27.5-35.2 [facility] MCHC Auto (RBC) [Mass/Vol]Or dered By: Miguel Hinson on 02-07-2023 MCHC (RBC) [Mass/Vol] 33.5 g/dL 32.5-35.6 [facility] MCV Auto (RBC) [Entitic vol] Ordered By: Miguel Hinson on 02-07-2023 MCV (RBC) [Entitic vol] 98.4 fL 83.5-101 [facility] Monocytes Auto (Bld) [#/Vol] Ordered By: Avrildajustino Stevensomar on 02-07-2023 Monocytes (Bld) [#/Vol] 0.8 10*3/uL 0.0-0.8 [facility] Monocytes/100 WBC Auto (Bld) Ordered By: Objacquidajustino Stevensomar on 02-07-2023 Monocytes/100 WBC (Bld) 6.7 % . [facility] Neutrophils Auto (Bld) [#/Vo l]Ordered By: Objacquidajustino Stevensomar on 02-07-2023 Neutrophils (Bld) [#/Vol] 5.2 10*3/uL 1.8-7.7 [facility] Neutrophils/100 WBC Auto (Bl d)Ordered By: Objacquidajustino Stevensomar on 02-07-2023 Neutrophils/100 WBC (Bld) 44.2 % . [facility] No Panel InformationOrdered By: Miguel Murdockr on 02-07-2023 Estimated GFR (CKD-EPI) > 60.0 mL/Min [facility] Creatinine Clearance (Chem 66.61 [facility] Nucleated erythrocytes [Pres ence] in Blood by Automated countOrdered By: Miguel Murdockr on 02-07-2023 Nucleated RBC Auto Ql (Bld) 0.2 /100{WBC} 0-0.5 [facility] Platelet mean volume Auto (B ld) [Entitic vol]Ordered By: Obkatherine Stevensomar on 02-07-2023 Platelet mean volume (Bld) [Entitic vol] 7.8 fL 6.6-10.1 [facility] Platelets Auto (Bld) [#/Vol] Ordered By: Obkatherine Stevensomar on 02-07-2023 Platelets (Bld) [#/Vol] 248 10*3/uL 150-450 [facility] Potassium [Moles/volume] in Serum or PlasmaOrdered By: Obkatherine Stevensomar on 02-07-2023 Potassium [Moles/Vol] 3.7 mmol/L 3.5-5.1 [facility] Protein [Mass/volume] in Ser um or PlasmaOrdered By: Obkatherine Stevensomar on 02-07-2023 Protein [Mass/Vol] 6.3 g/dL 6.4-8.9 [facility] RBC Auto (Bld) [#/Vol]Ordere d By: Avrildajustino Stevensomar on 02-07-2023 RBC (Bld) [#/Vol] 3.58 10*6/uL 3.90-5.60 [facility] Serum or plasma albumin/glob ulin mass ratioOrdered By: Objacquidajustino Stevensomar on 02-07-2023 Albumin/Globulin [Mass ratio] 1.4 {ratio} [facility] Serum or plasma anion gap de terminationOrdered By: Objacquidajustino Stevensomar on 02-07-2023 Anion gap [Moles/Vol] 11.4 mmol/L 6.0-15.0 [facility] Sodium [Moles/volume] in Ser um or PlasmaOrdered By: Objacquidah Daromar on 02-07-2023 Sodium [Moles/Vol] 138 mmol/L 136-145 [facility] Urea nitrogen [Mass/volume] in Serum or PlasmaOrdered By: Objacquidajustino Daromar on 02-07-2023 Urea nitrogen [Mass/Vol] 14 mg/dL 10-06 [facility] WBC Auto (Bld) [#/Vol]Ordere d By: Miguel Stevensomar on 02-07-2023 WBC (Bld) [#/Vol] 11.7 10*3/uL 4.1-10.5 [facility] ECG 12 lead ECGon 02-06-2023 ECG 12 lead ECG [facility] [address] Electrocardiograph Report Signed Patient: Tadeo Thomas MR#: [id number] 0 : 1945 Acct:[id number] Age/Sex: 78 / M ADM Date: 02/03/23 Loc: Room: [address] [place] [address] Type: ADM IN Attending Dr: Miguel Hinson [...] MUS Signed By Aracelis Perkins DO 02/06 [facility] ECG 12 lead ECGon 02-05-2023 ECG 12 lead ECG [facility] [place] [address] Electrocardiograph Report Signed Patient: Tadeo Thomas MR#: [id number] 0 : 1945 Acct:[id number] Age/Sex: 78 / M ADM Date: 02/03/23 Loc: Room: [address] [place] [address] Type: ADM IN Attending Dr: Jennifer Cruz [...] MUS Signed By Aracelis Perkins DO 02/05 [facility] ECG 12 lead ECGon 02-04-2023 ECG 12 lead ECG [facility] [address] [place] [address] [place] [address] Electrocardiograph Report Signed Patient: Tadeo Thomas MR#: [id number] 0 : 1945 Acct:[id number] Age/Sex: 78 / M ADM Date: 02/03/23 Loc: Room: [address] [place] [address] Type: ADM IN Attending Dr: Jennifer Cruz [...] MUS Signed By Aracelis Perkins DO 02/04 4624 [facility] Basic Metabolic Panelon -2 Anion gap [Moles/Vol] 11.0 mmol/L Normal 6.0-15.0 [facility] Comment on above: Performed By: #### B MP ####[facility] [address] [place] [address] [facility] Calcium [Mass/Vol] 8.3 mg/dL Low 8.6-10.3 [facility] Comment on above: Performed By: #### B MP ####[facility] [address] [place] [address] [facility] Chloride [Moles/Vol] 104 mmol/L Normal 98-107 [facility] Comment on above: Performed By: #### B MP ####[facility] [place] [id number] [facility] CO2 [Moles/Vol] 30.7 mmol/L Normal 21.0-31.0 [facility] Comment on above: Performed By: #### B MP ####[place] [address] [place] [id number] [facility] Creatinine [Mass/Vol] 0.81 mg/dL Normal 0.70-1.30 [facility] Comment on above: Performed By: #### B MP ####[place] [id number] [place] Creatinine Clr Calc Pharmacy 76.15 Normal [facility] Comment on above: Result Comment: PERF ORMED BY: [facility] [address] [place] [id number] PATHOLOGIST CURB WORKER KASSANDRA STACK M.D. Performed By: #### B MP ####[place] [id number] [facility] GFR/1.73 sq M.predicted MDRD (S/P/Bld) [Vol rate/Area] mL/min/{1.73_m2} Normal [facility] Comment on above: Performed By: #### B MP ####[place] [id number] [facility] Glucose [Mass/Vol] 92 mg/dL Significant change down 70-100 [facility] Comment on above: Result Comment: [facility] Glucose Reference Range is dependent on time and content of last meal. Glucose of more than 200 mg/dL in a nonstressed, ambulatory subject supports the diagnosis of Diabetes Mellitus. ADA recommended reference range Performed By: #### B MP ####[place] [id number] [facility] Potassium [Moles/Vol] 3.7 mmol/L Normal 3.5-5.1 [facility] Comment on above: Performed By: #### B MP ####[place] [id number] [facility] Sodium [Moles/Vol] 142 mmol/L Significant change down 136-145 [facility] Comment on above: Performed By: #### B MP ####[facility] [place] [address] [facility] Urea nitrogen [Mass/Vol] 17 mg/dL Normal 7-25 [facility] Comment on above: Performed By: #### B MP ####[facility] [place] [id number] [facility] Alanine aminotransferase [En zymatic activity/volume] in Serum or PlasmaOrdered By: Nicolas Zavala on 02-02-2023 ALT [Catalytic activity/Vol] 18 U/L 7-52 [facility] Albumin [Mass/volume] in Ser um or Plasma by Bromocresol green (BCG) dye binding methoOrdered By: Nicolas Zavala on 02-02-2023 Albumin BCG dye [Mass/Vol] 3.7 g/dL 3.5-5.7 [facility] Alkaline phosphatase [Enzyma tic activity/volume] in Serum or PlasmaOrdered By: Nicolas Zavala on 02-02-2023 ALP [Catalytic activity/Vol] 74 U/L 34-104 [facility] Aspartate aminotransferase [ Enzymatic activity/volume] in Serum or PlasmaOrdered By: Nicolas Zavala on 02-02-2023 AST [Catalytic activity/Vol] 17 U/L 13-39 [facility] B-Type Natriuretic Peptideon 02-02-2023 Natriuretic peptide B (Bld) [Mass/Vol] 427.0 pg/mL High 5-100 [facility] Comment on above: Result Comment: PERF ORMED BY: [facility] [address] [place] [id number] PATHOLOGIST CURB WORKER KASSANDRA STACK M.D. Performed By: #### H S TROP, BNP, CMP, CBC ####[place] [address] [place] [id number] [facility] Basophils Auto (Bld) [#/Vol] Ordered By: Nicolas Zavala on 02-02-2023 Basophils (Bld) [#/Vol] 0.0 10*3/uL 0.0-0.2 [facility] Basophils/100 WBC Auto (Bld) Ordered By: Nicolas Zavala on 02-02-2023 Basophils/100 WBC (Bld) 0.3 % . [facility] Bilirubin.total [Mass/volume ] in Serum or PlasmaOrdered By: Nicolas Zavala on 02-02-2023 Bilirubin [Mass/Vol] 0.5 mg/dL 0.3-1.0 [facility] Calcium [Mass/volume] in Ser um or PlasmaOrdered By: Nicolas Zavala on 02-02-2023 Calcium [Mass/Vol] 9.0 mg/dL 8.6-10.3 [facility] Carbon dioxide, total [Moles /volume] in Serum or PlasmaOrdered By: Nicolas Zavala on 02-02-2023 CO2 [Moles/Vol] 26.5 mmol/L 21.0-31.0 [facility] Chloride [Moles/volume] in S estela or PlasmaOrdered By: Nicolas Zavala on 02-02-2023 Chloride [Moles/Vol] 105 mmol/L 98-107 [facility] Complete Blood Count Auto Di ffon 02-02-2023 Basophils (Bld) [#/Vol] 0.0 10*3/uL Normal 0.0-0.2 [facility] Comment on above: Result Comment: PERF ORMED BY: [facility] [address] [facility] [place] [id number] PATHOLOGIST [employer] WORKER KASSANDRA STACK M.D. Performed By: #### H S TROP, BNP, CMP, CBC ####[facility] [id number] [place] [id number] [facility] Basophils/100 WBC (Bld) 0.3 % Normal . [facility] Comment on above: Performed By: #### H S TROP, BNP, CMP, CBC ####[facility] [id number] [place] [id number] [place] Eosinophils (Bld) [#/Vol] 0.0 10*3/uL Normal 0.0-0.45 [facility] Comment on above: Performed By: #### H S TROP, BNP, CMP, CBC ####[place] [id number] [place] [id number] [facility] Eosinophils/100 WBC (Bld) 0.2 % Normal . [facility] Comment on above: Performed By: #### H S TROP, BNP, CMP, CBC ####[address] Erythrocyte distribution width (RBC) [Ratio] 14.8 % Normal 12.0-14.8 [facility] Comment on above: Performed By: #### H S TROP, BNP, CMP, CBC ####[address] Hematocrit (Bld) [Volume fraction] 32.4 % Low 38.8-50.0 [facility] Comment on above: Performed By: #### H S TROP, BNP, CMP, CBC ####[address] Hemoglobin (Bld) [Mass/Vol] 11.0 g/dL Low 13.0-17.0 [facility] Comment on above: Performed By: #### H S TROP, BNP, CMP, CBC ####[address] Lymphocytes (Bld) [#/Vol] 3.3 10*3/uL Normal 1.00-4.8 [facility] Comment on above: Performed By: #### H S TROP, BNP, CMP, CBC ####[address] Lymphocytes/100 WBC (Bld) 35.5 % Normal . [facility] Comment on above: Performed By: #### H S TROP, BNP, CMP, CBC ####[address] MCH (RBC) [Entitic mass] 33.5 pg Normal 27.5-35.2 [facility] Comment on above: Performed By: #### H S TROP, BNP, CMP, CBC ####[address] MCV (RBC) [Entitic vol] 99.1 fL Normal 83.5-101 [facility] Comment on above: Performed By: #### H S TROP, BNP, CMP, CBC ####[address] Mean Corpuscular HGB Conc 33.8 g/dL Normal 32.5-35.6 [facility] Comment on above: Performed By: #### H S TROP, BNP, CMP, CBC ####[address] Monocytes (Bld) [#/Vol] 0.4 10*3/uL Normal 0.0-0.8 [facility] Comment on above: Performed By: #### H S TROP, BNP, CMP, CBC ####[address] Monocytes/100 WBC (Bld) 18.83 % Normal 0.00-20.00 [facility] Comment on above: Performed By: #### H S TROP, BNP, CMP, CBC ####[address] Monocytes/100 WBC (Bld) 4.8 % Normal . [facility] Comment on above: Performed By: #### H S TROP, BNP, CMP, CBC ####[address] Neutrophils (Bld) [#/Vol] 5.4 10*3/uL Normal 1.8-7.7 [facility] Comment on above: Performed By: #### H S TROP, BNP, CMP, CBC ####[address] Neutrophils/100 WBC (Bld) 59.2 % Normal . [facility] Comment on above: Performed By: #### H S TROP, BNP, CMP, CBC ####[address] NRBC% 0.6 /100{WBC} High 0-0.5 [facility] Comment on above: Performed By: #### H S TROP, BNP, CMP, CBC ####[address] Platelet mean volume (Bld) [Entitic vol] 8.2 fL Normal 6.6-10.1 [facility] Comment on above: Performed By: #### H S TROP, BNP, CMP, CBC ####[address] Platelets (Bld) [#/Vol] 227 10*3/uL Normal 150-450 [facility] Comment on above: Performed By: #### H S TROP, BNP, CMP, CBC ####[address] RBC (Bld) [#/Vol] 3.26 10*6/uL Low 3.90-5.60 [facility] Comment on above: Performed By: #### H S TROP, BNP, CMP, CBC ####[address] WBC (Bld) [#/Vol] 9.2 10*3/uL Normal 4.1-10.5 [facility] Comment on above: Performed By: #### H S TROP, BNP, CMP, CBC ####[address] Comprehensive Metabolic Pane christian 02-02-2023 Albumin [Mass/Vol] 3.7 g/dL Normal 3.5-5.7 [facility] Comment on above: Performed By: #### H S TROP, BNP, CMP, CBC ####[address] Albumin/Globulin [Mass ratio] 1.3 {ratio} Normal [facility] Comment on above: Performed By: #### H S TROP, BNP, CMP, CBC ####[address] ALP [Catalytic activity/Vol] 74 U/L Normal 34-104 [facility] Comment on above: Performed By: #### H S TROP, BNP, CMP, CBC ####[address] ALT [Catalytic activity/Vol] 18 U/L Normal 7-52 [facility] Comment on above: Performed By: #### H S TROP, BNP, CMP, CBC ####[address] Anion gap [Moles/Vol] 6.7 mmol/L Normal 6.0-15.0 [facility] Comment on above: Performed By: #### H S TROP, BNP, CMP, CBC ####[address] AST [Catalytic activity/Vol] 17 U/L Normal 13-39 [facility] Comment on above: Performed By: #### H S TROP, BNP, CMP, CBC ####[address] Bilirubin [Mass/Vol] 0.5 mg/dL Normal 0.3-1.0 [facility] Comment on above: Performed By: #### H S TROP, BNP, CMP, CBC ####[address] Calcium [Mass/Vol] 9.0 mg/dL Normal 8.6-10.3 [facility] Comment on above: Performed By: #### H S TROP, BNP, CMP, CBC ####[address] Chloride [Moles/Vol] 105 mmol/L Normal 98-107 [facility] Comment on above: Performed By: #### H S TROP, BNP, CMP, CBC ####[address] CO2 [Moles/Vol] 26.5 mmol/L Normal 21.0-31.0 [facility] Comment on above: Performed By: #### H S TROP, BNP, CMP, CBC ####[address] Creatinine [Mass/Vol] 0.99 mg/dL Normal 0.70-1.30 [facility] Comment on above: Performed By: #### H S TROP, BNP, CMP, CBC ####[place] [address] Creatinine Clr Calc Pharmacy 63.41 [facility] Comment on above: Result Comment: PERF ORMED BY: [facility] [address] [place] [address] PATHOLOGIST [employer] WORKER KASSANDRA STACK M.D. Performed By: #### H S TROP, BNP, CMP, CBC ####[address] GFR/1.73 sq M.predicted MDRD (S/P/Bld) [Vol rate/Area] mL/min/{1.73_m2} [facility] Comment on above: Performed By: #### H S TROP, BNP, CMP, CBC ####[address] Globulin (S) [Mass/Vol] 2.9 g/dL [facility] Comment on above: Performed By: #### H S TROP, BNP, CMP, CBC ####[address] Glucose [Mass/Vol] 227 mg/dL High 70-100 [facility] Comment on above: Result Comment: [facility] Glucose Reference Range is dependent on time and content of last meal. Glucose of more than 200 mg/dL in a nonstressed, ambulatory subject supports the diagnosis of Diabetes Mellitus. ADA recommended reference range Performed By: #### H S TROP, BNP, CMP, CBC ####[address] Potassium [Moles/Vol] 4.2 mmol/L Normal 3.5-5.1 [facility] Comment on above: Performed By: #### H S TROP, BNP, CMP, CBC ####[address] Protein [Mass/Vol] 6.6 g/dL Normal 6.4-8.9 [facility] Comment on above: Performed By: #### H S TROP, BNP, CMP, CBC ####[address] [place] [address] [facility] Sodium [Moles/Vol] 134 mmol/L Low 136-145 [facility] Comment on above: Performed By: #### H S TROP, BNP, CMP, CBC ####[place] [address] [place] [id number] [facility] Urea nitrogen [Mass/Vol] 24 mg/dL Normal 7-25 [facility] Comment on above: Performed By: #### H S TROP, BNP, CMP, CBC ####[place] [address] [place] [address] [facility] Creatinine [Mass/volume] in Serum or PlasmaOrdered By: Nicolas Zavala on 02-02-2023 Creatinine [Mass/Vol] 0.99 mg/dL 0.70-1.30 [facility] Digoxinon 02-02-2023 Digoxin [Mass/Vol] ng/mL Low 0.9-2.0 [facility] Comment on above: Result Comment: Last dose: - PERFORMED BY: [place] [address] PATHOLOGIST [employer] WORKER KASSANDRA STACK M.D. Performed By: #### D IG ####[place] [id number] [facility] Digoxin [Mass/volume] in Ser um or PlasmaOrdered By: Nicolas Zavala on 02-02-2023 Digoxin [Mass/Vol] ng/mL 0.9-2.0 [facility] Comment on above: Last dose: - ECG 12 lead ECGon 02-02-2023 ECG 12 lead ECG [facility] [address] Electrocardiograph Report Signed Patient: Tadeo Thomas MR#: [id number] 0 : 1945 Acct:[id number] Age/Sex: 78 / M ADM Date: 02/02/23 Loc: Room: [address] [place] [address] Type: ADM INOo Attending Dr: Jennifer Cruz MD Ordering Provider: Nicolas Zavala, Date of Service: 02/02/23 ECG/ECG 12 lead [...] paced rhythm Confirmed by Nicolas Zavala DO ([id number]) on 02/02/2023 8:03:51 PM Referred By: Electronically Signed By:Nicolas Zavala DO Transcribed By: MUS Signed By Nicolas Zavala DO 2002 [facility] ECG 12 lead ECG [facility] [place] [address] Electrocardiograph Report Signed Patient: Tadeo Thomas MR#: [id number] 0 : 1945 Acct:[id number] Age/Sex: 78 / M ADM Date: 02/02/23 Loc: Room: [address] [place] [address] Type: ADM INOo Attending Dr: Jennifer Cruz [...] branch block Confirmed by Nicolas Zavala DO ([id number]) on 02/02/2023 8:04:29 PM Referred By: Electronically Signed By:Nicolas Zavala DO Transcribed By: MUS Signed By Nicolas Zavala DO 2003 [facility] ECG 12 lead ECG [facility] Main [place] [id number] Electrocardiograph Report Signed Patient: Tadeo Thomas MR#: [id number] 0 : 1945 Acct:[id number] Age/Sex: 78 / M ADM Date: 02/02/23 Loc: Room: [address] [place] [address] Type: ADM INOo Attending Dr: Jennifer Cruz [...] with RBBB Confirmed by Nicolas Zavala DO ([id number]) on 02/02/2023 8:04:59 PM Referred By: Electronically Signed By:Nicolas Zavala DO Transcribed By: MUS Signed By Nicolas Zavala DO 2004 [facility] ECG 12 lead ECG [facility] [place] [address] Electrocardiograph Report Signed Patient: Tadeo Thomas MR#: [id number] 0 : 1945 Acct:[id number] Age/Sex: 78 / M ADM Date: 02/02/23 Loc: Room: [address] [place] [address] Type: ADM INOo Attending Dr: Jennifer Cruz [...] with RBBB Confirmed by Nicolas Zavala DO ([id number]) on 02/02/2023 8:05:19 PM Referred By: Electronically Signed By:Nicolas Zavala DO Transcribed By: MUS Signed By Nicolas Zavala DO 2004 [facility] Eosinophils Auto (Bld) [#/Vo l]Ordered By: Nicolas Zavala on 02-02-2023 Eosinophils (Bld) [#/Vol] 0.0 10*3/uL 0.0-0.45 [facility] Eosinophils/100 WBC Auto (Bl d)Ordered By: Nicolas Zavala on 02-02-2023 Eosinophils/100 WBC (Bld) 0.2 % . [facility] Erythrocyte distribution wid th Auto (RBC) [Ratio]Ordered By: Nicolas Zavala on 02-02-2023 Erythrocyte distribution width (RBC) [Ratio] 14.8 % 12.0-14.8 [facility] Globulin Calc (S) [Mass/Vol] Ordered By: Nicolas Zavala on 02-02-2023 Globulin (S) [Mass/Vol] 2.9 g/dL [facility] Glucose [Mass/volume] in Ser um or PlasmaOrdered By: Nicolas Zavala on 02-02-2023 Glucose [Mass/Vol] 227 mg/dL 70-100 [facility] Comment on above: ADA recommended refe rence rangeRandom Glucose Reference Range is dependent on time and content of last meal. Glucose of more than 200 mg/dL in a nonstressed, ambulatory subject supports the diagnosis of Diabetes Mellitus. Hematocrit Auto (Bld) [Volum e fraction]Ordered By: Nicolas Zavala on 02-02-2023 Hematocrit (Bld) [Volume fraction] 32.4 % 38.8-50.0 [facility] Hemoglobin [Mass/volume] in BloodOrdered By: Nicolas Zavala on 02-02-2023 Hemoglobin (Bld) [Mass/Vol] 11.0 g/dL 13.0-17.0 [facility] Leukocytes [#/volume] correc ale for nucleated erythrocytes in Blood by Automated counOrdered By: Nicolas Zavala on 02-02-2023 WBC corrected for nucl RBC Auto (Bld) [#/Vol] 9.2 10*3/uL 4.1-10.5 [facility] Lymphocytes Auto (Bld) [#/Vo l]Ordered By: Nicolas Zavala on 02-02-2023 Lymphocytes (Bld) [#/Vol] 3.3 10*3/uL 1.00-4.8 [facility] Lymphocytes/100 WBC Auto (Bl d)Ordered By: Nicolas Zavala on 02-02-2023 Lymphocytes/100 WBC (Bld) 35.5 % . [facility] MCH Auto (RBC) [Entitic mass ]Ordered By: Nicolas Zavala on 02-02-2023 MCH (RBC) [Entitic mass] 33.5 pg 27.5-35.2 [facility] MCHC Auto (RBC) [Mass/Vol]Or dered By: Nicolas Zavala on 02-02-2023 MCHC (RBC) [Mass/Vol] 33.8 g/dL 32.5-35.6 [facility] MCV Auto (RBC) [Entitic vol] Ordered By: Nicolas Zavala on 02-02-2023 MCV (RBC) [Entitic vol] 99.1 fL 83.5-101 [facility] Monocyte distribution width [Entitic volume] in Blood by AutomatedOrdered By: Nicolas Zavala on 02-02-2023 Monocyte distribution width Auto (Bld) [Entitic vol] 18.83 % 0.00-20.00 [facility] Monocytes Auto (Bld) [#/Vol] Ordered By: Nicolas Zavala on 02-02-2023 Monocytes (Bld) [#/Vol] 0.4 10*3/uL 0.0-0.8 [facility] Monocytes/100 WBC Auto (Bld) Ordered By: Nicolas Zavala on 02-02-2023 Monocytes/100 WBC (Bld) 4.8 % . [facility] Natriuretic peptide B [Mass/ Vol]Ordered By: Nicolas Zavala on 02-02-2023 Natriuretic peptide B (Bld) [Mass/Vol] 427.0 pg/mL 5-100 [facility] Neutrophils Auto (Bld) [#/Vo l]Ordered By: Nicolas Zavala on 02-02-2023 Neutrophils (Bld) [#/Vol] 5.4 10*3/uL 1.8-7.7 [facility] Neutrophils/100 WBC Auto (Bl d)Ordered By: Nicolas Zavala on 02-02-2023 Neutrophils/100 WBC (Bld) 59.2 % . [facility] No Panel InformationOrdered By: Nicolas Zavala on 02-02-2023 Estimated GFR (CKD-EPI) > 60.0 mL/Min [facility] Creatinine Clearance (Chem 63.41 [facility] Nucleated erythrocytes [Pres ence] in Blood by Automated countOrdered By: Nicolas Zavala on 02-02-2023 Nucleated RBC Auto Ql (Bld) 0.6 /100{WBC} 0-0.5 [facility] Platelet mean volume Auto (B ld) [Entitic vol]Ordered By: Nicolas Zavala on 02-02-2023 Platelet mean volume (Bld) [Entitic vol] 8.2 fL 6.6-10.1 [facility] Platelets Auto (Bld) [#/Vol] Ordered By: Nicolas Zavala on 02-02-2023 Platelets (Bld) [#/Vol] 227 10*3/uL 150-450 [facility] Potassium [Moles/volume] in Serum or PlasmaOrdered By: Nicolas Zavala on 02-02-2023 Potassium [Moles/Vol] 4.2 mmol/L 3.5-5.1 [facility] Protein [Mass/volume] in Ser um or PlasmaOrdered By: Nicolas Zavala on 02-02-2023 Protein [Mass/Vol] 6.6 g/dL 6.4-8.9 [facility] RBC Auto (Bld) [#/Vol]Ordere d By: Nicolas Zavala on 02-02-2023 RBC (Bld) [#/Vol] 3.26 10*6/uL 3.90-5.60 [facility] Serum or plasma albumin/glob ulin mass ratioOrdered By: Nicolas Zavala on 02-02-2023 Albumin/Globulin [Mass ratio] 1.3 {ratio} [facility] Serum or plasma anion gap de terminationOrdered By: Nicolas Zavala on 02-02-2023 Anion gap [Moles/Vol] 6.7 mmol/L 6.0-15.0 [facility] Sodium [Moles/volume] in Ser um or PlasmaOrdered By: Nicolas Zavala on 02-02-2023 Sodium [Moles/Vol] 134 mmol/L 136-145 [facility] Troponin I High Sensitivityo n 02-02-2023 Troponin I High Sensitivity 15.0 pg/mL Normal 0.0-20.0 [facility] Comment on above: Result Comment: PERF ORMED BY: [place] [address] PATHOLOGIST [employer] WORKER KASSANDRA STACK M.D. Performed By: #### H S TROP, BNP, CMP, CBC ####[facility] [id number] [place] [address] [facility] Troponin I.cardiac [Mass/vol ume] in Serum or Plasma by Detection limit <= 0.01 ng/Ordered By: Nicolas Zavala on 02-02-2023 Troponin I.cardiac DL <= 0.01 ng/mL [Mass/Vol] 15.0 pg/mL 0.0-20.0 [facility] Urea nitrogen [Mass/volume] in Serum or PlasmaOrdered By: Nicolas Zavala on 02-02-2023 Urea nitrogen [Mass/Vol] 24 mg/dL 7-25 [facility] WBC Auto (Bld) [#/Vol]Ordere d By: Nicolas Zavala on 02-02-2023 WBC (Bld) [#/Vol] 9.2 10*3/uL 4.1-10.5 [facility] XR chest 1V portableon 02-02 XR chest 1V portable [facility] Main [place] [id number] XRay Report Signed Patient: Tadeo Thomas MR#: [id number] 0 : 1945 Acct:[id number] Age/Sex: 78 / M ADM Date: 02/02/23 [...] Lacey Jr., D.OGerardo02/02/2023 12:16 PM Dictation Location: [place] [address] Transcribed By: [facility] 02/02/23 121 Dictated By: Jamaal Lacey Jr DO 02/02/23 1210 Signed By: 02/02/23 1216 Normal [facility] ALBUMIN, RANDOM URINE W/CREA TININEon 12-17-2022 ALBUMIN, URINE 8.9 mg/dL Normal See Note: [facility] Comment on above: Result Comment: Refe rence Range: Reference Range Not established Performed By: #### 6 517, 26130, 2813 #### [facility] [address], [address] [place] [address] Internal Affairs Investigator: Sunday Chu MD ALBUMIN/CREATININE RATIO, RANDOM URINE [...] diagnostic category. Performed By: #### 6 517, 17361, 5463 #### [facility] [address], [address] [place] [address] Internal Affairs Investigator: Sunday Chu MD Creatinine (U) [Mass/Vol] 362 mg/dL High 20-320 [facility] Comment on above: Result Comment: Results verified by repeat analysis on dilution. Performed By: #### 6 517, 51213, 5463 #### [facility] [address], [address] [place] [address] Internal Affairs Investigator: Sunday Chu MD CBC (INCLUDES DIFF/PLT)on Basophils (Bld) [#/Vol] 0.023 10*3/uL Normal 0-200 [facility] Comment on above: Performed By: #### 6 517, 04966, 5463 #### [facility] of [place] [address] Internal Affairs Investigator: Sunday Chu MD Basophils/100 WBC (Bld) 0.3 % Normal [facility] Comment on above: Performed By: #### 6 517, 94441, 5463 #### [facility] of [place] [address] Internal Affairs Investigator: Sunday Chu MD Eosinophils (Bld) [#/Vol] 0.031 10*3/uL Normal 15-500 [facility] Comment on above: Performed By: #### 6 517, 64460, 5463 #### [facility] of [place] [address] Internal Affairs Investigator: Sunday Chu MD Eosinophils/100 WBC (Bld) 0.4 % Normal [facility] Comment on above: Performed By: #### 6 517, 79341, 5463 #### [facility] of [place] [address] Internal Affairs Investigator: Sunday Chu MD Erythrocyte distribution width (RBC) [Ratio] 13.4 % Normal 11.0-15.0 [facility] Comment on above: Performed By: #### 6 517, 42948, 5463 #### [facility] of [place] [address] Internal Affairs Investigator: Sunday Chu MD Hematocrit (Bld) [Volume fraction] 35.3 % Low 38.5-50.0 [facility] Comment on above: Performed By: #### 6 517, 47783, 5463 #### [facility] of [place] [address] Internal Affairs Investigator: Sunday Chu MD Hemoglobin (Bld) [Mass/Vol] 11.7 g/dL Low 13.2-17.1 [facility] Comment on above: Performed By: #### 6 517, 48740, 5463 #### [facility] of [address], [address] [place] [address] Internal Affairs Investigator: Sunday Chu MD Lymphocytes (Bld) [#/Vol] 3.773 10*3/uL Normal 850-3900 [facility] Comment on above: Performed By: #### 6 517, 01184, 5463 #### [facility] of [address], [address] [place] [address] Internal Affairs Investigator: Sunday Chu MD Lymphocytes/100 WBC (Bld) 49.0 % Normal [facility] Comment on above: Performed By: #### 6 517, 35713, 5463 #### [facility] of [place] [address] Internal Affairs Investigator: Sunday Chu MD MCH (RBC) [Entitic mass] 33.6 pg High 27.0-33.0 [facility] Comment on above: Performed By: #### 6 517, 07757, 5463 #### [facility] of [place] [address] Internal Affairs Investigator: Sunday Chu MD MCHC (RBC) [Mass/Vol] 33.1 g/dL Normal 32.0-36.[address] [facility] Comment on above: Performed By: #### 6 517, 81957, 5463 #### [facility] of [place] [address] Internal Affairs Investigator: Sunday Chu MD MCV (RBC) [Entitic vol] 101.4 fL High 80.0-100.0 [facility] Comment on above: Performed By: #### 6 517, 69385, 5463 #### [facility] of [place] [address] Internal Affairs Investigator: Sunday Chu MD Monocytes (Bld) [#/Vol] 0.362 10*3/uL Normal 200-950 [facility] Comment on above: Performed By: #### 6 517, 45023, 5463 #### [facility] of [place] [address] Internal Affairs Investigator: Sunday Chu MD Monocytes/100 WBC (Bld) 4.7 % Normal [facility] Comment on above: Performed By: #### 6 517, 11384, 5463 #### [facility] of [place] [address] Internal Affairs Investigator: Sunday Chu MD Neutrophils (Bld) [#/Vol] 3.511 10*3/uL Normal 5289-3741 [facility] Comment on above: Performed By: #### 6 517, 70350, 5463 #### [facility] of [place] [address] Internal Affairs Investigator: Sunday Chu MD Neutrophils/100 WBC (Bld) 45.6 % Normal [facility] Comment on above: Performed By: #### 6 517, 67795, 5463 #### [facility] of [place] [address] Internal Affairs Investigator: Sunday Chu MD Platelet mean volume (Bld) [Entitic vol] 10.2 fL Normal 7.5-12.5 [facility] Comment on above: Performed By: #### 6 517, 94466, 5463 #### [facility] of [place] [address] Internal Affairs Investigator: Sunday Chu MD Platelets (Bld) [#/Vol] 212 10*3/uL Normal 140-400 [facility] Comment on above: Performed By: #### 6 517, 79318, 5463 #### [facility] of [place] [address] Internal Affairs Investigator: Sunday Chu MD RBC (Bld) [#/Vol] 3.48 10*6/uL Low 4.20-5.80 [facility] Comment on above: Performed By: #### 6 517, 22260, 5463 #### [facility] of [place] [address] Internal Affairs Investigator: Sunday Chu MD WBC (Bld) [#/Vol] 7.7 10*3/uL Normal 3.8-10.8 [facility] Comment on above: Performed By: #### 6 517, 11610, 5463 #### [facility] [place] [address] Internal Affairs Investigator: Sunday Chu MD [facility] 12-17-2022 Albumin [Mass/Vol] 3.9 g/dL Normal 3.6-5.1 [facility] Comment on above: Performed By: #### 6 517, 25797, 5463 #### [facility] of [place] [address] Internal Affairs Investigator: Sunday Chu MD Albumin/Globulin [Mass ratio] 1.7 {ratio} Normal 1.0-2.5 [facility] Comment on above: Performed By: #### 6 517, 41163, 5463 #### [facility] of [place] [address] Internal Affairs Investigator: Sunday Chu MD ALP [Catalytic activity/Vol] 58 U/L Normal 35-144 [facility] Comment on above: Performed By: #### 6 517, 33281, 5463 #### [facility] [place] [address] Internal Affairs Investigator: Sunday Chu MD ALT [Catalytic activity/Vol] 8 U/L Low 9-46 [facility] Comment on above: Performed By: #### 6 517, 38271, 5463 #### [facility] of [place] [address] Internal Affairs Investigator: Sunday Chu MD AST [Catalytic activity/Vol] 12 U/L Normal 10-35 [facility] Comment on above: Performed By: #### 6 517, 88318, 5463 #### [facility] of [place] [address] Internal Affairs Investigator: Sunday Chu MD Bilirubin [Mass/Vol] 0.4 mg/dL Normal 0.2-1.2 [facility] Comment on above: Performed By: #### 6 517, 86190, 5463 #### [facility] of [place] [address] Internal Affairs Investigator: Sunday Chu MD BUN/CREATININE RATIO SEE NOTE: Normal 6-22 [facility] Comment on above: Result Comment: Not Reported: BUN and Creatinine are within reference range. Performed By: #### 6 517, 70284, 5463 #### [facility] of [address], [address] [place] [address] Internal Affairs Investigator: Sunday Chu MD Calcium [Mass/Vol] 8.7 mg/dL Normal 8.6-10.3 [facility] Comment on above: Performed By: #### 6 517, 73662, 5463 #### [facility] of [place] [address] Internal Affairs Investigator: Sunday Chu MD Chloride [Moles/Vol] 102 mmol/L Normal 98-110 [facility] Comment on above: Performed By: #### 6 517, 64891, 5463 #### [facility] of [place] [address] Internal Affairs Investigator: Sunday Chu MD CO2 [Moles/Vol] 28 mmol/L Normal 20-32 [facility] Comment on above: Performed By: #### 6 517, 68889, 5463 #### [facility] of [place] [address] Internal Affairs Investigator: Sunday Chu MD Creatinine [Mass/Vol] 0.83 mg/dL Normal 0.70-1.28 [facility] Comment on above: Performed By: #### 6 517, 71658, 5463 #### [facility] of [place] [address] Internal Affairs Investigator: Sunday Chu MD GFR/1.73 sq M.predicted among non-blacks MDRD (S/P/Bld) [Vol rate/Area] 90 mL/min/{1.73_m2} Normal > OR = 60 [facility] Comment on above: Performed By: #### 6 517, 14634, 5463 #### [facility] [place] [address], [address] [place] [address] Internal Affairs Investigator: Sunday Chu MD Globulin (S) [Mass/Vol] 2.3 g/dL Normal 1.9-3.7 [facility] Comment on above: Performed By: #### 6 517, 20590, 5463 #### [facility] [place] [address] Internal Affairs Investigator: Sunday Chu MD Glucose [Mass/Vol] 106 mg/dL High 65-99 [facility] Comment on above: Result Comment: Fasting reference interval For someone without known diabetes, a glucose value between 100 and 125 mg/dL is consistent with prediabetes and should be confirmed with a follow-up test. Performed By: #### 6 517, 30440, 5463 #### [facility] [place] [address] Internal Affairs Investigator: Sunday Chu MD Potassium [Moles/Vol] 4.2 mmol/L Normal 3.5-5.3 [facility] Comment on above: Performed By: #### 6 517, 69602, 5463 #### [facility] [place] [address] Internal Affairs Investigator: Sunday Chu MD Protein [Mass/Vol] 6.2 g/dL Normal 6.1-8.1 [facility] Comment on above: Performed By: #### 6 517, 00343, 3 #### [facility] [place] [address] Internal Affairs Investigator: Sunday Chu MD Sodium [Moles/Vol] 140 mmol/L Normal 135-146 [facility] Comment on above: Performed By: #### 6 517, 83624, 5463 #### [facility] of [place] [address] Internal Affairs Investigator: Sunday Chu MD Urea nitrogen [Mass/Vol] 16 mg/dL Normal 7-25 [facility] Comment on above: Performed By: #### 6 517, 89600, 5463 #### [facility] of [place] [address] Internal Affairs Investigator: Sunday Chu MD URINALYSIS, COMPLETEon 12-17 Appearance (U) CLOUDY Abnormal CLEAR [facility] Comment on above: Performed By: #### 6 517, 69463, 5463 #### [facility] of [place] [address] Internal Affairs Investigator: Sunday Chu MD BACTERIA NONE SEEN Normal NONE SEEN [facility] Comment on above: Performed By: #### 6 517, 02371, 5463 #### [facility] of [place] [address] Internal Affairs Investigator: Sunday Chu MD Bilirubin Ql (U) 1+ Abnormal NEGATIVE [facility] Comment on above: Result Comment: Pres umptive positive bilirubin. Consider confirmation by serum bilirubin if clinically indicated. Performed By: #### 6 517, 53372, 5463 #### [facility] of [place] [address] Internal Affairs Investigator: Sunday Chu MD Color (U) DARK YELLOW Normal YELLOW [facility] Comment on above: Performed By: #### 6 517, 01098, 5463 #### [facility] [place] [address] Internal Affairs Investigator: Sunday Chu MD Glucose Ql (U) Negative Normal NEGATIVE [facility] Comment on above: Performed By: #### 6 517, 23504, 5463 #### [facility] [place] [address] Internal Affairs Investigator: Sunday Chu MD HYALINE CAST 6-10 Abnormal NONE SEEN [facility] Comment on above: Performed By: #### 6 517, 99007, 5463 #### [facility] [place] [address] Internal Affairs Investigator: Sunday Chu MD Ketones Ql (U) 1+ Abnormal NEGATIVE [facility] Comment on above: Performed By: #### 6 517, 43828, 5463 #### [facility] of [place] [address] Internal Affairs Investigator: Sunday Chu MD Leukocyte esterase Test strip Ql (U) TRACE Abnormal NEGATIVE [facility] Comment on above: Performed By: #### 6 517, 66241, 5463 #### [facility] [place] [address] Internal Affairs Investigator: Sunday Chu MD Nitrite Ql (U) Negative Normal NEGATIVE [facility] Comment on above: Performed By: #### 6 517, 53259, 5463 #### [facility] [place] [address] Internal Affairs Investigator: Sunday Chu MD OCCULT BLOOD Negative Normal NEGATIVE [facility] Comment on above: Performed By: #### 6 517, 68160, 5463 #### [facility] [place] [address] Internal Affairs Investigator: Sunday Chu MD pH (U) 5.5 [pH] Normal 5.0-8.0 [facility] Comment on above: Performed By: #### 6 517, 20867, 5463 #### [facility] [place] [address] Internal Affairs Investigator: Sunday Chu MD Protein Ql (U) 1+ Abnormal NEGATIVE [facility] Comment on above: Performed By: #### 6 517, 45847, 5463 #### [facility] [place] [address] Internal Affairs Investigator: Sunday Chu MD RBC 0-2 Normal < OR = 2 [facility] Comment on above: Performed By: #### 6 517, 59326, 5463 #### [facility] [place] [address] Internal Affairs Investigator: Sunday Chu MD Specific gravity (U) [Rel density] 1.025 Normal 1.001-1.03 5 [facility] Comment on above: Performed By: #### 6 517, 77026, 5463 #### [facility] of [place] [address] [place] [address] Rd, [address] [place] [address] Internal Affairs Investigator: Sunday Chu MD SQUAMOUS EPITHELIAL CELLS 0-5 Normal < OR = 5 [facility] Comment on above: Performed By: #### 6 517, 41279, 5463 #### [facility] of [facility] [address] [place], [place] [address]e Rd, [address] [place] [address] Internal Affairs Investigator: Sunday Chu MD WBC NONE SEEN Normal < OR = 5 [facility] Comment on above: Performed By: #### 6 517, 13979, 5463 #### [facility] of [address], [address] [place] [address] Internal Affairs Investigator: Sunday Chu MD Office Visit (Cardiology)on 11-25-2022 [...] in adult Healthy Weight Tips; Status:Complete; Done: 25Nov2022 Paroxysmal atrial flutter Start: dilTIAZem HCl ER [...] interrogation unremarkable. Cardiovascular history: September 2022 at [facility] seen in consult Dr. Dietrich d/t 2:1 atrial flutter and Mobitz II. Inpatient MPI: no ischemia, fixed inferior defect 18% artifact vs. PA September 17, 2022 implant Pearson 2272 dual [...] 1 tabl (more content not included)... Normal [employer] Tobacco Screening.on 023 Fall risk assessment b) One or more fall s in the last year [facility] 250 DO Work Phone: Tobacco use status CPHS b) No [facility] DO Work Phone: Radiologyon 11-17-2022 XR Chest 2 Views Normal [facility] 250 DO Work Phone: XR chest 2V*on 11-17-2022 XR chest 2V* [facility] Main [place] [address] [place] [address] XRay Report Signed Patient: Tadeo Thomas MR#: [id number] 0 : 1945 Acct:[id number] Age/Sex: 77 / M ADM Date: 11/17/22 Loc: [facility] Room: Type: [facility] Attending Dr: Ketan Lucero MD Copies to: [...] Moustapha Cervantes M.D.11/17/2022 4:17 PM Dictation Location: [place] [address] Transcribed By: [facility] 11/17/221616 Dictated By: Moustapha Cervantes DO 11/17/221615 Signed By: 11/17/221616 [facility] Echocardiogramon 11-12-[address], [address] [place] [address] TRANSTHORACIC ECHOCARDIOGRAM REPORT Patient Name: TADEO THOMAS Reading Physician: [id number] Samra Garza MD Study Date: 11/12/2022 Referring Physician: OLGA WYATT MRN/PID: [id number] PCP: Aracelis Pedroza MD Accession/Order#: [id number] Department Location: [facility] Date of : 1945 Fellow: Gender: M Nurse: 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 Height: 167.64 cm CC Report to: Weight: 76.20 kg Study Type: Echocardiogram BSA: 1.86 m2 Blood Pressure: 112 /56 mmHg Diagnosis/ICD: R93.1-Abnormal findings on diagnostic imaging of heart and coronary circulation; Z95.0-Presence of cardiac pacemaker; I48.92-Unspecified atrial flutter Indication: Abnormal EKG, Diabetes, HTN, Hyperlipidemia, Former Smoker, Overweight Procedure/CPT: Echo Limited-62855 Study Detail: The following Echo studies were [...] Normal Ranges: LVOT Diameter: 2.50 cm (1.8-2.4cm) [id number] Samra Garza MD Electronically signed on 11/12/2022 at 10:16:[address] [facility] Office Visit (Cardiology)on 10-21-2022 Follow-up visit Diagnoses/Problems [...] contact the office if new symptoms arise. 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 Patient presents to the office today accompanied by . This is initial in clinic follow-up at [facility]. Throughout the summer patient reports dizziness and shortness of breath and frequent falls. PCP completed a Holter monitor and echocardiogram. The Holter monitor showed 2-1 atrial flutter and patient was instructed to present to local hospital. September 2022 at [facility] seen in consult Dr. Dietrich d/t 2:1 atrial flutter and Mobitz II. Outpatient echo: EF 55, LVH mild Inpatient MPI: no ischemia, fixed inferior defect 18% artifact vs. PA September 17, 2022 impant Pearson 2272 dual [...] surgery His (more content not included)... Normal [employer] Tobacco Screening.on 023 Adult depression screening assessment No [facility] [place] 250 DO Work Phone: Fall risk assessment b) One or more fall s in the last year [facility] [place] 250 DO Work Phone: Tobacco use status CPHS b) No [facility] [place] 250 DO Work Phone: Radiologyon 09-25-2022 XR Chest 2 Views Normal [facility] [place] 250 DO Work Phone: XR chest 2V*on 09-25-2022 XR chest 2V* [facility] Main [place] [address] [place] [address] XRay Report Signed Patient: Tadeo Thomas MR#: [id number] 0 : 1945 Acct:[id number] Age/Sex: 77 / M ADM Date: 09/25/22 Loc: XD Room: Type: [facility] Attending Dr: Ketan Lucero MD Copies to: [...] Germaine Storey M.D.09/25/2022 3:00 PM Dictation Location: [facility]--12 Transcribed By: [facility] 09/25/22 1500 Dictated By: Germaine Storey MD 09/25/22 1459 Signed By: 09/25/22 1500 Normal [facility] CA holter monitor recordingo n 09-18-2022 CA holter monitor recording [facility] Main [place] [id number] Holter Monitor Report Signed Patient: Tadeo Thomas MR#: [id number] 0 : 1945 Acct:[id number] Age/Sex: 77 / M ADM Date: 09/11/22 Loc: Room: Type: [facility] Attending Dr: Aracelis Pedroza MD Copies to: Fior Saleem MD, [facility] Aracelis Pedroza MD Ordering Provider: Aracelis [...] department and subsequently was admitted. Transcribed By: ULISSES 09/18/22 2019 Dictated By: Fior Saleem MD, [facility] 09/18/22 1718 Signed By: 09/21/22 0911 [facility] Glucose Glucometer (BldC) [M ass/Vol]Ordered By: Charlie Varner on 09-18-2022 Glucose [Mass/Vol] 206 mg/dL [facility] Comment on above: Random Glucose Refer ence Range is dependent on time and content of last meal. Glucose of more than 200 mg/dL in a nonstressed, ambulatory subject supports the diagnosis of Diabetes Mellitus. Glucose Poct Glucometerson 0 09-18-2022 Commemt1 Glu2: Cleaned Meter [facility] Comment on above: Result Comment: PERF ORMED BY: [facility] [address] [place] [address] PATHOLOGIST CURB WORKER KASSANDRA STACK M.D. Performed By: #### G LULS ####Point of Care testing, Glucose [Mass/Vol] 355 mg/dL [facility] Comment on above: Result Comment: [facility] Glucose Reference Range is dependent on time and content of last meal. Glucose of more than 200 mg/dL in a nonstressed, ambulatory subject supports the diagnosis of Diabetes Mellitus. Performed By: #### G LULS ####Point of Care testing, Commemt1 Glu2: Cleaned Meter Normal [facility] Comment on above: Result Comment: PERF ORMED BY: [place] [id number] PATHOLOGIST CURB WORKER KASSANDRA STACK M.D. Performed By: #### G LULS ####Point of Care testing, Glucose [Mass/Vol] 206 mg/dL Normal [facility] Comment on above: Result Comment: [facility] Glucose Reference Range is dependent on time and content of last meal. Glucose of more than 200 mg/dL in a nonstressed, ambulatory subject supports the diagnosis of Diabetes Mellitus. Performed By: #### G LULS ####Point of Care testing, No Panel InformationOrdered By: Charlie Varner on 09-18-2022 Bedside Glucose Comment Glu2: cleaned meter [facility] STR cardiac stress/lexiscano n 09-18-2022 STR cardiac stress/lexiscan [facility] Main [place] [address] [place] [address] Cardiac Stress Test Signed Patient: Tadeo Thomas MR#: [id number] 0 : 1945 Acct:[id number] Age/Sex: 77 / M ADM Date: 09/14/22 Loc: Room: [address] [place] [address] Type: DIS IN Attending Dr: Charlie Varner MD Copies to: Fior Saleem MD, [facility] Tae Dietrich MD Ordering Provider: Tae [...] ULISSES 09/18/222043 Dictated By: Fior Saleem MD, [facility] 09/18/22 1748 Signed By: 09/21/22 0911 [facility] XR chest 2V*on 09-18-2022 XR chest 2V* [facility] Main [place] [address] [place] [address] XRay Report Signed Patient: Tadeo Thomas MR#: [id number] 0 : 1945 Acct:[id number] Age/Sex: 77 / M ADM Date: 09/14/22 Loc: Room: [address] [place] [address] Type: ADM IN Attending Dr: Charlie Varner [...] Moustapha Cervantes M.D.09/18/2022 10:39 AM Dictation Location: [place] [address] Transcribed By: [facility] 09/18/22 1039 Dictated By: Moustapha Cervantes DO 09/18/22 1038 Signed By: 09/18/22 1039 [facility] Activated partial thrombopla stin time (aPTT) in platelet poor plasma by coagulation aOrdered By: Tae Dietrich on 09-17-2022 aPTT Coag (PPP) [Time] 26.8 s 25.1-36.5 [facility] Basic Metabolic Panelon 07-0 Anion gap [Moles/Vol] 10.1 mmol/L Normal 6.0-15.0 [facility] Comment on above: Performed By: #### B MP, CBC, PT, PTT ####[place] [address] [place] [id number] [facility] Calcium [Mass/Vol] 8.9 mg/dL Normal 8.6-10.3 [facility] Comment on above: Performed By: #### B MP, CBC, PT, PTT ####[place] [id number] [facility] Chloride [Moles/Vol] 101 mmol/L Normal 98-107 [facility] Comment on above: Performed By: #### B MP, CBC, PT, PTT ####[place] [id number] [facility] CO2 [Moles/Vol] 30.0 mmol/L Normal 21.0-31.0 [facility] Comment on above: Performed By: #### B MP, CBC, PT, PTT ####[place] [id number] [facility] Creatinine [Mass/Vol] 0.87 mg/dL Normal 0.70-1.30 [facility] Comment on above: Performed By: #### B MP, CBC, PT, PTT ####[place] [id number] [facility] Creatinine Clr Calc Pharmacy 67.70 Normal [facility] Comment on above: Result Comment: PERF ORMED BY: [facility] [address] [place] [id number] PATHOLOGIST CURB WORKER KASSANDRA STACK M.D. Performed By: #### B MP, CBC, PT, PTT ####[place] [id number] [facility] GFR/1.73 sq M.predicted MDRD (S/P/Bld) [Vol rate/Area] mL/min/{1.73_m2} Normal [facility] Comment on above: Performed By: #### B MP, CBC, PT, PTT ####[facility] Glucose [Mass/Vol] 234 mg/dL High 70-100 [facility] Comment on above: Result Comment: [facility] Glucose Reference Range is dependent on time and content of last meal. Glucose of more than 200 mg/dL in a nonstressed, ambulatory subject supports the diagnosis of Diabetes Mellitus. ADA recommended reference range Performed By: #### B MP, CBC, PT, PTT ####[facility] [address] Potassium [Moles/Vol] 4.1 mmol/L Normal 3.5-5.1 [facility] Comment on above: Performed By: #### B MP, CBC, PT, PTT ####[address] Sodium [Moles/Vol] 137 mmol/L Normal 136-145 [facility] Comment on above: Performed By: #### B MP, CBC, PT, PTT ####[place] [address] [place] [id number] [facility] Urea nitrogen [Mass/Vol] 13 mg/dL Normal 7-25 [facility] Comment on above: Performed By: #### B MP, CBC, PT, PTT ####[facility] Basophils Auto (Bld) [#/Vol] Ordered By: Tae Dietrich on 09-17-2022 Basophils (Bld) [#/Vol] 0.0 10*3/uL 0.0-0.2 [facility] Basophils/100 WBC Auto (Bld) Ordered By: Tae Dietrich on 09-17-2022 Basophils/100 WBC (Bld) 0.2 % . [facility] Calcium [Mass/volume] in Ser um or PlasmaOrdered By: Tae Dietrich on 09-17-2022 Calcium [Mass/Vol] 8.9 mg/dL 8.6-10.3 [facility] Carbon dioxide, total [Moles /volume] in Serum or PlasmaOrdered By: Tae Dietrich on 09-17-2022 CO2 [Moles/Vol] 30.0 mmol/L 21.0-31.0 [facility] Chloride [Moles/volume] in S estela or PlasmaOrdered By: Tae Dietrich on 09-17-2022 Chloride [Moles/Vol] 101 mmol/L 98-107 [facility] Complete Blood Count Auto Di ffon 09-17-2022 Basophils (Bld) [#/Vol] 0.0 10*3/uL Normal 0.0-0.2 [facility] Comment on above: Result Comment: PERF ORMED BY: [facility] [address] [facility] [address] PATHOLOGIST CURB WORKER KASSANDRA STACK M.D. Performed By: #### B MP, CBC, PT, PTT ####[address] Basophils/100 WBC (Bld) 0.2 % Normal . [facility] Comment on above: Performed By: #### B MP, CBC, PT, PTT ####[place] [address] [address] Eosinophils (Bld) [#/Vol] 0.0 10*3/uL Normal 0.0-0.45 [facility] Comment on above: Performed By: #### B MP, CBC, PT, PTT ####[address] Eosinophils/100 WBC (Bld) 0.3 % Normal . [facility] Comment on above: Performed By: #### B MP, CBC, PT, PTT ####[place] [id number] [facility] Erythrocyte distribution width (RBC) [Ratio] 13.5 % Normal 12.0-14.8 [facility] Comment on above: Performed By: #### B MP, CBC, PT, PTT ####[place] [id number] [facility] Hematocrit (Bld) [Volume fraction] 37.9 % Low 38.8-50.0 [facility] Comment on above: Performed By: #### B MP, CBC, PT, PTT ####[address] Hemoglobin (Bld) [Mass/Vol] 13.1 g/dL Normal 13.0-17.0 [facility] Comment on above: Performed By: #### B MP, CBC, PT, PTT ####[address] Lymphocytes (Bld) [#/Vol] 4.5 10*3/uL Normal 1.00-4.8 [facility] Comment on above: Performed By: #### B MP, CBC, PT, PTT ####[address] Lymphocytes/100 WBC (Bld) 43.7 % Normal . [facility] Comment on above: Performed By: #### B MP, CBC, PT, PTT ####[address] MCH (RBC) [Entitic mass] 34.1 pg Normal 27.5-35.2 [facility] Comment on above: Performed By: #### B MP, CBC, PT, PTT ####[address] MCV (RBC) [Entitic vol] 98.9 fL Normal 83.5-101 [facility] Comment on above: Performed By: #### B MP, CBC, PT, PTT ####[address] Mean Corpuscular HGB Conc 34.5 g/dL Normal 32.5-35.6 [facility] Comment on above: Performed By: #### B MP, CBC, PT, PTT ####[address] Monocytes (Bld) [#/Vol] 0.6 10*3/uL Normal 0.0-0.8 [facility] Comment on above: Performed By: #### B MP, CBC, PT, PTT ####[place] [address] [place] [id number] [facility] Monocytes/100 WBC (Bld) 5.4 % Normal . [facility] Comment on above: Performed By: #### B MP, CBC, PT, PTT ####[place] [id number] [facility] Neutrophils (Bld) [#/Vol] 5.2 10*3/uL Normal 1.8-7.7 [facility] Comment on above: Performed By: #### B MP, CBC, PT, PTT ####[place] [id number] [facility] Neutrophils/100 WBC (Bld) 50.4 % Normal . [facility] Comment on above: Performed By: #### B MP, CBC, PT, PTT ####[address] NRBC% 0.5 /100{WBC} Normal 0-0.5 [facility] Comment on above: Performed By: #### B MP, CBC, PT, PTT ####[place] [id number] [facility] Platelet mean volume (Bld) [Entitic vol] 8.5 fL Normal 6.6-10.1 [facility] Comment on above: Performed By: #### B MP, CBC, PT, PTT ####[place] [id number] [facility] Platelets (Bld) [#/Vol] 213 10*3/uL Normal 150-450 [facility] Comment on above: Performed By: #### B MP, CBC, PT, PTT ####[place] [id number] [facility] RBC (Bld) [#/Vol] 3.83 10*6/uL Low 3.90-5.60 [facility] Comment on above: Performed By: #### B MP, CBC, PT, PTT ####[place] [id number] [facility] WBC (Bld) [#/Vol] 10.3 10*3/uL Normal 4.1-10.5 [facility] Comment on above: Performed By: #### B MP, CBC, PT, PTT ####[facility] [address] Creatinine [Mass/volume] in Serum or PlasmaOrdered By: Tae Dietrich on 09-17-2022 Creatinine [Mass/Vol] 0.87 mg/dL 0.70-1.30 [facility] ECG 12 lead ECGon 09-17-2022 ECG 12 lead ECG [facility] Main [place] [address] [place] [address] Electrocardiograph Report Signed Patient: Tadeo Thomas MR#: [id number] 0 : 1945 Acct:[id number] Age/Sex: 77 / M ADM Date: 09/14/22 Loc: Room: [address] [place] [address] Type: ADM IN Attending Dr: Charlie Varner [...] By Moustapha Thakkar DO 09/17 1310 Normal [facility] Eosinophils Auto (Bld) [#/Vo l]Ordered By: Tae Dietrich on 09-17-2022 Eosinophils (Bld) [#/Vol] 0.0 10*3/uL 0.0-0.45 [facility] Eosinophils/100 WBC Auto (Bl d)Ordered By: Tae Dietrich on 09-17-2022 Eosinophils/100 WBC (Bld) 0.3 % . [facility] Erythrocyte distribution wid th Auto (RBC) [Ratio]Ordered By: Tae Dietrich on 09-17-2022 Erythrocyte distribution width (RBC) [Ratio] 13.5 % 12.0-14.8 [facility] Glucose Poct Glucometerson 0 09-17-2022 Glucose [Mass/Vol] 188 mg/dL Normal [facility] Comment on above: Result Comment: [facility] Glucose Reference Range is dependent on time and content of last meal. Glucose of more than 200 mg/dL in a nonstressed, ambulatory subject supports the diagnosis of Diabetes Mellitus. PERFORMED BY: [address] [place] [id number] PATHOLOGIST CURB WORKER KASSANDRA STACK M.D. Performed By: #### G LULS ####Point of Care testing, Glucose [Mass/Vol] 236 mg/dL Normal [facility] Comment on above: Result Comment: [facility] Glucose Reference Range is dependent on time and content of last meal. Glucose of more than 200 mg/dL in a nonstressed, ambulatory subject supports the diagnosis of Diabetes Mellitus. PERFORMED BY: [address] [place] [id number] PATHOLOGIST CURB WORKER KASSANDRA STACK M.D. Performed By: #### G LULS ####Point of Care testing, Glucose [Mass/Vol] 260 mg/dL Normal [facility] Comment on above: Result Comment: [facility] Glucose Reference Range is dependent on time and content of last meal. Glucose of more than 200 mg/dL in a nonstressed, ambulatory subject supports the diagnosis of Diabetes Mellitus. PERFORMED BY: [address] [place] [id number] PATHOLOGIST CURB WORKER KASSANDRA STACK M.D. Performed By: #### G LULS ####Point of Care testing, Glucose [Mass/volume] in Ser um or PlasmaOrdered By: Tae Dietrich on 09-17-2022 Glucose [Mass/Vol] 234 mg/dL 70-100 [facility] Comment on above: ADA recommended refe rence rangeRandom Glucose Reference Range is dependent on time and content of last meal. Glucose of more than 200 mg/dL in a nonstressed, ambulatory subject supports the diagnosis of Diabetes Mellitus. Hematocrit Auto (Bld) [Volum e fraction]Ordered By: Tae Dietrich on 09-17-2022 Hematocrit (Bld) [Volume fraction] 37.9 % 38.8-50.0 [facility] Hemoglobin [Mass/volume] in BloodOrdered By: Tae Dietrich on 09-17-2022 Hemoglobin (Bld) [Mass/Vol] 13.1 g/dL 13.0-17.0 [facility] Laboratory - CoagulationOrde red By: Tae Dietrich on 09-17-2022 PT Coag (PPP) [Time] 12.3 s 9.0-12.9 [facility] Leukocytes [#/volume] correc ale for nucleated erythrocytes in Blood by Automated counOrdered By: Tae Dietrich on 09-17-2022 WBC corrected for nucl RBC Auto (Bld) [#/Vol] 10.3 10*3/uL 4.1-10.5 [facility] Lymphocytes Auto (Bld) [#/Vo l]Ordered By: Tae Dietrich on 09-17-2022 Lymphocytes (Bld) [#/Vol] 4.5 10*3/uL 1.00-4.8 [facility] Lymphocytes/100 WBC Auto (Bl d)Ordered By: Tae Dietrich on 09-17-2022 Lymphocytes/100 WBC (Bld) 43.7 % . [facility] MCH Auto (RBC) [Entitic mass ]Ordered By: Tae Dietrich on 09-17-2022 MCH (RBC) [Entitic mass] 34.1 pg 27.5-35.2 [facility] MCHC Auto (RBC) [Mass/Vol]Or dered By: Tae Dietrich on 09-17-2022 MCHC (RBC) [Mass/Vol] 34.5 g/dL 32.5-35.6 [facility] MCV Auto (RBC) [Entitic vol] Ordered By: Tae Dietrich on 09-17-2022 MCV (RBC) [Entitic vol] 98.9 fL 83.5-101 [facility] Monocytes Auto (Bld) [#/Vol] Ordered By: Tae Dietrich on 09-17-2022 Monocytes (Bld) [#/Vol] 0.6 10*3/uL 0.0-0.8 [facility] Monocytes/100 WBC Auto (Bld) Ordered By: Tae Dietrich on 09-17-2022 Monocytes/100 WBC (Bld) 5.4 % . [facility] NM sukhwinder perf SPECT rest stron 09-17-2022 NM sukhwinder perf SPECT rest str [facility] [place] [address] Nuclear Medicine Report Signed Patient: Tadeo Thomas MR#: [id number] 0 : 1945 Acct:[id number] Age/Sex: 77 / M ADM Date: 09/14/22 Loc: Room: [address] [place] [address] Type: ADM IN Attending Dr: Charlie Varner MD Copies to: MD Fior Escalera MD, [facility] Tae Dietrich MD Ordering Provider: Tae [...] the study was not gated. Transcribed By: NTS 09/17/22 2016 Dictated By: Fior Saleem MD, [facility] 09/17/22 1751 Signed By: 09/18/22 1520 Normal [facility] Neutrophils Auto (Bld) [#/Vo l]Ordered By: Tae Dietrich on 09-17-2022 Neutrophils (Bld) [#/Vol] 5.2 10*3/uL 1.8-7.7 [facility] Neutrophils/100 WBC Auto (Bl d)Ordered By: Tae Dietrich on 09-17-2022 Neutrophils/100 WBC (Bld) 50.4 % . [facility] No Panel InformationOrdered By: Tae Dietrich on 09-17-2022 Estimated GFR (CKD-EPI) > 60.0 mL/Min [facility] Creatinine Clearance (Chem 67.70 [facility] Nucleated erythrocytes [Pres ence] in Blood by Automated countOrdered By: Tae Dietrich on 09-17-2022 Nucleated RBC Auto Ql (Bld) 0.5 /100{WBC} 0-0.5 [facility] Partial Thromboplastin Timeo n 09-17-2022 aPTT Coag (Bld) [Time] 26.8 s Normal 25.1-36.5 [facility] Comment on above: Result Comment: PERF ORMED BY: [facility] [address] [place] [address] PATHOLOGIST [employer] WORK[employer] KASSANDRA STACK M.D. Performed By: #### B MP, CBC, PT, PTT ####[facility] Platelet mean volume Auto (B ld) [Entitic vol]Ordered By: Tae Dietrich on 09-17-2022 Platelet mean volume (Bld) [Entitic vol] 8.5 fL 6.6-10.1 [facility] Platelet poor plasma interna tional normalized ratio (INR) by coagulation assay (relatOrdered By: Tae Dietrich on 09-17-2022 INR Coag (PPP) [Relative time] 1.1 {INR} [facility] Comment on above: INR Therapeutic Rang e [...] 09-17-2022 Platelets (Bld) [#/Vol] 213 10*3/uL 150-450 [facility] Potassium [Moles/volume] in Serum or PlasmaOrdered By: Tae Dietrich on 09-17-2022 Potassium [Moles/Vol] 4.1 mmol/L 3.5-5.1 [facility] Prothrombin Time INRon 09-17 INR Coag (PPP) [Relative time] 1.1 {INR} Normal [facility] Comment on above: Result Comment: INR Therapeutic [...] By: #### B MP, CBC, PT, PTT ####[facility] [id number] PT Coag (PPP) [Time] 12.3 s Normal 9.0-12.9 [facility] Comment on above: Performed By: #### B MP, CBC, PT, PTT ####[facility] [id number] [place] [id number] [facility] RBC Auto (Bld) [#/Vol]Ordere d By: Tae Dietrich on 09-17-2022 RBC (Bld) [#/Vol] 3.83 10*6/uL 3.90-5.60 [facility] Serum or plasma anion gap de terminationOrdered By: Tae Dietrich on 09-17-2022 Anion gap [Moles/Vol] 10.1 mmol/L 6.0-15.0 [facility] Sodium [Moles/volume] in Ser um or PlasmaOrdered By: Tae Dietrich on 09-17-2022 Sodium [Moles/Vol] 137 mmol/L 136-145 [facility] Urea nitrogen [Mass/volume] in Serum or PlasmaOrdered By: Tae Dietrich on 09-17-2022 Urea nitrogen [Mass/Vol] 13 mg/dL 7-25 [facility] WBC Auto (Bld) [#/Vol]Ordere d By: Tae Dietrich on 09-17-2022 WBC (Bld) [#/Vol] 10.3 10*3/uL 4.1-10.5 [facility] XR chest 1V portableon 09-17 XR chest 1V portable [facility] [place] [address] XRay Report Signed Patient: Tadeo Thomas MR#: [id number] 0 : 1945 Acct:[id number] Age/Sex: 77 / M ADM Date: 09/14/22 Loc: Room: [address] [place] [address] Type: ADM IN Attending Dr: Charlie Varner [...] Germaine Storey M.D.09/17/2022 5:22 PM Dictation Location: [facility]- Transcribed By: GARCÍA 09/17/22 172 Dictated By: Germaine Storey MD 09/17/221720 Signed By: 09/17/22 172 [facility] Basic Metabolic Panelon 07-0 Anion gap [Moles/Vol] 8.0 mmol/L Normal 6.0-15.0 [facility] Comment on above: Performed By: #### B MP, MG, CBC ####[facility] [id number] [place] [address] [facility] Calcium [Mass/Vol] 8.3 mg/dL Low 8.6-10.3 [facility] Comment on above: Performed By: #### B MP, MG, CBC ####[place] [address] [place] [address] [facility] Chloride [Moles/Vol] 105 mmol/L Normal 98-107 [facility] Comment on above: Performed By: #### B MP, MG, CBC ####[facility] [id number] [place] [address] [facility] CO2 [Moles/Vol] 29.8 mmol/L Normal 21.0-31.0 [facility] Comment on above: Performed By: #### B MP, MG, CBC ####[address] [address] [facility] Creatinine [Mass/Vol] 0.86 mg/dL Normal 0.70-1.30 [facility] Comment on above: Performed By: #### B MP, MG, CBC ####[facility] [id number] [place] [address] [place] Creatinine Clr Calc Pharmacy 68.49 [facility] Comment on above: Performed By: #### B MP, MG, CBC ####[facility] [id number] [place] [address] [place] GFR/1.73 sq M.predicted MDRD (S/P/Bld) [Vol rate/Area] mL/min/{1.73_m2} [facility] Comment on above: Performed By: #### B MP, MG, CBC ####[facility] [id number] [place] [address] [place] Glucose [Mass/Vol] 152 mg/dL High 70-100 [facility] Comment on above: Result Comment: [place] Glucose Reference Range is dependent on time and content of last meal. Glucose of more than 200 mg/dL in a nonstressed, ambulatory subject supports the diagnosis of Diabetes Mellitus. ADA recommended reference range Performed By: #### B MP, MG, CBC ####[facility] [place] [id number] [facility] Potassium [Moles/Vol] 3.8 mmol/L Normal 3.5-5.1 [facility] Comment on above: Performed By: #### B MP, MG, CBC ####[address] Sodium [Moles/Vol] 139 mmol/L Normal 136-145 [facility] Comment on above: Performed By: #### B MP, MG, CBC ####[place] [id number] [facility] Urea nitrogen [Mass/Vol] 16 mg/dL Normal 7-25 [facility] Comment on above: Performed By: #### B MP, MG, CBC ####[place] [address] [place] [id number] [facility] Complete Blood Count Auto Di ffon 09-15-2022 Basophils (Bld) [#/Vol] 0.0 10*3/uL Normal 0.0-0.2 [facility] Comment on above: Result Comment: PERF ORMED BY: [facility] [address] [place] [address] PATHOLOGIST [employer] WORKER KASSANDRA STACK M.D. Performed By: #### B MP, MG, CBC ####[place] [address] [place] [id number] [facility] Basophils/100 WBC (Bld) 0.3 % Normal . [facility] Comment on above: Performed By: #### B MP, MG, CBC ####[place] [address] [place] [id number] [facility] Eosinophils (Bld) [#/Vol] 0.0 10*3/uL Normal 0.0-0.45 [facility] Comment on above: Performed By: #### B MP, MG, CBC ####[place] [id number] [facility] Eosinophils/100 WBC (Bld) 0.5 % Normal . [facility] Comment on above: Performed By: #### B MP, MG, CBC ####[place] [id number] [facility] Erythrocyte distribution width (RBC) [Ratio] 13.6 % Normal 12.0-14.8 [facility] Comment on above: Performed By: #### B MP, MG, CBC ####[address] Hematocrit (Bld) [Volume fraction] 30.2 % Low 38.8-50.0 [facility] Comment on above: Performed By: #### B MP, MG, CBC ####[address] Hemoglobin (Bld) [Mass/Vol] 10.7 g/dL Low 13.0-17.0 [facility] Comment on above: Performed By: #### B MP, MG, CBC ####[address] Lymphocytes (Bld) [#/Vol] 3.9 10*3/uL Normal 1.00-4.8 [facility] Comment on above: Performed By: #### B MP, MG, CBC ####[place] [id number] [facility] Lymphocytes/100 WBC (Bld) 49.0 % Normal . [facility] Comment on above: Performed By: #### B MP, MG, CBC ####[place] [id number] [facility] MCH (RBC) [Entitic mass] 34.9 pg Normal 27.5-35.2 [facility] Comment on above: Performed By: #### B MP, MG, CBC ####[place] [id number] [facility] MCV (RBC) [Entitic vol] 98.7 fL Normal 83.5-101 [facility] Comment on above: Performed By: #### B MP, MG, CBC ####[address] Mean Corpuscular HGB Conc 35.3 g/dL Normal 32.5-35.6 [facility] Comment on above: Performed By: #### B MP, MG, CBC ####[address] Monocytes (Bld) [#/Vol] 0.4 10*3/uL Normal 0.0-0.8 [facility] Comment on above: Performed By: #### B MP, MG, CBC ####[address] Monocytes/100 WBC (Bld) 5.2 % Normal . [facility] Comment on above: Performed By: #### B MP, MG, CBC ####[address] Neutrophils (Bld) [#/Vol] 3.6 10*3/uL Normal 1.8-7.7 [facility] Comment on above: Performed By: #### B MP, MG, CBC ####[address] Neutrophils/100 WBC (Bld) 45.0 % Normal . [facility] Comment on above: Performed By: #### B MP, MG, CBC ####[address] NRBC% 0.4 /100{WBC} Normal 0-0.5 [facility] Comment on above: Performed By: #### B MP, MG, CBC ####[address] Platelet mean volume (Bld) [Entitic vol] 8.0 fL Normal 6.6-10.1 [facility] Comment on above: Performed By: #### B MP, MG, CBC ####[facility] [address] [place] [address] [place] Platelets (Bld) [#/Vol] 158 10*3/uL Significant change down 150-450 [facility] Comment on above: Performed By: #### B MP, MG, CBC ####[facility] [id number] RBC (Bld) [#/Vol] 3.06 10*6/uL Low 3.90-5.60 [facility] Comment on above: Performed By: #### B MP, MG, CBC ####[facility] [address] [place] [id number] [facility] WBC (Bld) [#/Vol] 8.0 10*3/uL Normal 4.1-10.5 [facility] Comment on above: Performed By: #### B MP, MG, CBC ####[facility] ECG 12 lead ECGon 09-15-2022 ECG 12 lead ECG [facility] [place] [address] Electrocardiograph Report Signed Patient: Tadeo Thomas MR#: [id number] 0 : 1945 Acct:[id number] Age/Sex: 77 / M ADM Date: 09/14/22 Loc: Room: [address] [place] [address] Type: ADM IN Attending Dr: Charlie Varner [...] By Moustapha Thakkar DO 09/16 0907 Normal [facility] Magnesiumon 09-15-2022 Magnesium [Mass/Vol] 1.5 mg/dL Low 1.9-2.7 [facility] Comment on above: Result Comment: PERF ORMED BY: [facility] [address] [place] [address] PATHOLOGIST [employer] WORKER KASSANDRA STACK M.D. Performed By: #### B MP, MG, CBC ####[place] [address] [place] [address] [facility] Magnesium [Mass/volume] in S estela or PlasmaOrdered By: Charlie Varner on 09-15-2022 Magnesium [Mass/Vol] 1.5 mg/dL 1.9-2.7 [facility] A1C with Estimated Average G luon 09-14-2022 Glucose [Mass/Vol] 180 mg/dL Normal [facility] Comment on above: Result Comment: PERF ORMED BY: [facility] [address] [place] [address] PATHOLOGIST [employer] WORKER KASSANDRA STACK M.D. Performed By: #### A 1C [facility] eA ####[place] [address] [place] [id number] [facility] HbA1c (Bld) [Mass fraction] 7.9 % High 4.3-5.6 [facility] Comment on above: Result Comment: Incr eased risk for diabetes: 5.7 - 6.4 diabetes: >6.4 glycemic control for adults with diabetes: <7.0 Performed By: #### A 1C [facility] eA ####[address] [address] [facility] Activated partial thrombopla stin time (aPTT) in platelet poor plasma by coagulation aOrdered By: Uriah Wang on 09-14-2022 aPTT Coag (PPP) [Time] 31.4 s 25.1-36.5 [facility] Alanine aminotransferase [En zymatic activity/volume] in Serum or PlasmaOrdered By: Uriah Wang on 09-14-2022 ALT [Catalytic activity/Vol] 14 U/L 7-52 [facility] Albumin [Mass/volume] in Ser um or Plasma by Bromocresol green (BCG) dye binding methoOrdered By: Uriah Wang on 09-14-2022 Albumin BCG dye [Mass/Vol] 4.3 g/dL 3.5-5.7 [facility] Alkaline phosphatase [Enzyma tic activity/volume] in Serum or PlasmaOrdered By: Uriah Wang on 09-14-2022 ALP [Catalytic activity/Vol] 66 U/L 34-104 [facility] Aspartate aminotransferase [ Enzymatic activity/volume] in Serum or PlasmaOrdered By: Uriah Wang on 09-14-2022 AST [Catalytic activity/Vol] 15 U/L 13-39 [facility] B-Type Natriuretic Peptideon 09-14-2022 Natriuretic peptide B (Bld) [Mass/Vol] 239.0 pg/mL High 5-100 [facility] Comment on above: Result Comment: PERF ORMED BY: [facility] [address] [place] [address] PATHOLOGIST [employer] WORKER KASSANDRA STACK M.D. Performed By: #### C MP, PT, BNP, MG, CK, HS TROP, CBC, PTT ####[facility] [id number] Basophils Auto (Bld) [#/Vol] Ordered By: Uriah Wang on 09-14-2022 Basophils (Bld) [#/Vol] 0.0 10*3/uL 0.0-0.2 [facility] Basophils/100 WBC Auto (Bld) Ordered By: Uriah Wang on 09-14-2022 Basophils/100 WBC (Bld) 0.3 % . [facility] Bilirubin.total [Mass/volume ] in Serum or PlasmaOrdered By: Uriah Wang on 09-14-2022 Bilirubin [Mass/Vol] 0.4 mg/dL 0.3-1.0 [facility] Calcium [Mass/volume] in Ser um or PlasmaOrdered By: Uriah Wang on 09-14-2022 Calcium [Mass/Vol] 9.3 mg/dL 8.6-10.3 [facility] Carbon dioxide, total [Moles /volume] in Serum or PlasmaOrdered By: Uriah Wang on 09-14-2022 CO2 [Moles/Vol] 27.6 mmol/L 21.0-31.0 [facility] Chloride [Moles/volume] in S estela or PlasmaOrdered By: Uriha Wang on 09-14-2022 Chloride [Moles/Vol] 103 mmol/L 98-107 [facility] Complete Blood Count Auto Di ffon 09-14-2022 Basophils (Bld) [#/Vol] 0.0 10*3/uL Normal 0.0-0.2 [facility] Comment on above: Result Comment: PERF ORMED BY: [facility] [address] [place] [address] PATHOLOGIST [employer] WORKER KASSANDRA STACK M.D. Performed By: #### C MP, PT, BNP, MG, CK, HS TROP, CBC, PTT ####[address] Basophils/100 WBC (Bld) 0.3 % Normal . [facility] Comment on above: Performed By: #### C MP, PT, BNP, MG, CK, HS TROP, CBC, PTT ####[address] Eosinophils (Bld) [#/Vol] 0.1 10*3/uL Normal 0.0-0.45 [facility] Comment on above: Performed By: #### C MP, PT, BNP, MG, CK, HS TROP, CBC, PTT ####[address] Eosinophils/100 WBC (Bld) 0.5 % Normal . [facility] Comment on above: Performed By: #### C MP, PT, BNP, MG, CK, HS TROP, CBC, PTT ####[address] Erythrocyte distribution width (RBC) [Ratio] 14.0 % Normal 12.0-14.8 [facility] Comment on above: Performed By: #### C MP, PT, BNP, MG, CK, HS TROP, CBC, PTT ####[address] Hematocrit (Bld) [Volume fraction] 36.9 % Low 38.8-50.0 [facility] Comment on above: Performed By: #### C MP, PT, BNP, MG, CK, HS TROP, CBC, PTT ####[address] Hemoglobin (Bld) [Mass/Vol] 12.8 g/dL Low 13.0-17.0 [facility] Comment on above: Performed By: #### C MP, PT, BNP, MG, CK, HS TROP, CBC, PTT ####[address] Lymphocytes (Bld) [#/Vol] 4.2 10*3/uL Normal 1.00-4.8 [facility] Comment on above: Performed By: #### C MP, PT, BNP, MG, CK, HS TROP, CBC, PTT ####[address] Lymphocytes/100 WBC (Bld) 39.9 % Normal . [facility] Comment on above: Performed By: #### C MP, PT, BNP, MG, CK, HS TROP, CBC, PTT ####[address] MCH (RBC) [Entitic mass] 34.7 pg Normal 27.5-35.2 [facility] Comment on above: Performed By: #### C MP, PT, BNP, MG, CK, HS TROP, CBC, PTT ####[address] MCV (RBC) [Entitic vol] 100.0 fL Normal 83.5-101 [facility] Comment on above: Performed By: #### C MP, PT, BNP, MG, CK, HS TROP, CBC, PTT ####[address] Mean Corpuscular HGB Conc 34.7 g/dL Normal 32.5-35.6 [facility] Comment on above: Performed By: #### C MP, PT, BNP, MG, CK, HS TROP, CBC, PTT ####[address] Monocytes (Bld) [#/Vol] 0.5 10*3/uL Normal 0.0-0.8 [facility] Comment on above: Performed By: #### C MP, PT, BNP, MG, CK, HS TROP, CBC, PTT ####[address] Monocytes/100 WBC (Bld) 17.48 % Normal 0.00-20.00 [facility] Comment on above: Performed By: #### C MP, PT, BNP, MG, CK, HS TROP, CBC, PTT ####[address] Monocytes/100 WBC (Bld) 4.5 % Normal . [facility] Comment on above: Performed By: #### C MP, PT, BNP, MG, CK, HS TROP, CBC, PTT ####[address] Neutrophils (Bld) [#/Vol] 5.8 10*3/uL Normal 1.8-7.7 [facility] Comment on above: Performed By: #### C MP, PT, BNP, MG, CK, HS TROP, CBC, PTT ####[address] Neutrophils/100 WBC (Bld) 54.8 % Normal . [facility] Comment on above: Performed By: #### C MP, PT, BNP, MG, CK, HS TROP, CBC, PTT ####[address] NRBC% 0.2 /100{WBC} Normal 0-0.5 [facility] Comment on above: Performed By: #### C MP, PT, BNP, MG, CK, HS TROP, CBC, PTT ####[address] Platelet mean volume (Bld) [Entitic vol] 8.2 fL Normal 6.6-10.1 [facility] Comment on above: Performed By: #### C MP, PT, BNP, MG, CK, HS TROP, CBC, PTT ####[place] [id number] [facility] Platelets (Bld) [#/Vol] 228 10*3/uL Normal 150-450 [facility] Comment on above: Performed By: #### C MP, PT, BNP, MG, CK, HS TROP, CBC, PTT ####[address] RBC (Bld) [#/Vol] 3.69 10*6/uL Low 3.90-5.60 [facility] Comment on above: Performed By: #### C MP, PT, BNP, MG, CK, HS TROP, CBC, PTT ####[address] WBC (Bld) [#/Vol] 10.6 10*3/uL High 4.1-10.5 [facility] Comment on above: Performed By: #### C MP, PT, BNP, MG, CK, HS TROP, CBC, PTT ####[address] Comprehensive Metabolic Pane christian 09-14-2022 Albumin [Mass/Vol] 4.3 g/dL Normal 3.5-5.7 [facility] Comment on above: Performed By: #### C MP, PT, BNP, MG, CK, HS TROP, CBC, PTT ####[address] Albumin/Globulin [Mass ratio] 1.4 {ratio} Normal [facility] Comment on above: Performed By: #### C MP, PT, BNP, MG, CK, HS TROP, CBC, PTT ####[address] ALP [Catalytic activity/Vol] 66 U/L Normal 34-104 [facility] Comment on above: Performed By: #### C MP, PT, BNP, MG, CK, HS TROP, CBC, PTT ####[address] ALT [Catalytic activity/Vol] 14 U/L Normal 7-52 [facility] Comment on above: Performed By: #### C MP, PT, BNP, MG, CK, HS TROP, CBC, PTT ####[address] Anion gap [Moles/Vol] 12.5 mmol/L Normal 6.0-15.0 [facility] Comment on above: Performed By: #### C MP, PT, BNP, MG, CK, HS TROP, CBC, PTT ####[address] AST [Catalytic activity/Vol] 15 U/L Normal 13-39 [facility] Comment on above: Performed By: #### C MP, PT, BNP, MG, CK, HS TROP, CBC, PTT ####[address] Bilirubin [Mass/Vol] 0.4 mg/dL Normal 0.3-1.0 [facility] Comment on above: Performed By: #### C MP, PT, BNP, MG, CK, HS TROP, CBC, PTT ####[address] Calcium [Mass/Vol] 9.3 mg/dL Normal 8.6-10.3 [facility] Comment on above: Performed By: #### C MP, PT, BNP, MG, CK, HS TROP, CBC, PTT ####[address] Chloride [Moles/Vol] 103 mmol/L Normal 98-107 [facility] Comment on above: Performed By: #### C MP, PT, BNP, MG, CK, HS TROP, CBC, PTT ####[address] [place] [address] [place] CO2 [Moles/Vol] 27.6 mmol/L Normal 21.0-31.0 [facility] Comment on above: Performed By: #### C MP, PT, BNP, MG, CK, HS TROP, CBC, PTT ####[address] Creatinine [Mass/Vol] 1.05 mg/dL Normal 0.70-1.30 [facility] Comment on above: Performed By: #### C MP, PT, BNP, MG, CK, HS TROP, CBC, PTT ####[address] Creatinine Clr Calc Pharmacy 60.89 [facility] Comment on above: Performed By: #### C MP, PT, BNP, MG, CK, HS TROP, CBC, PTT ####[address] GFR/1.73 sq M.predicted MDRD (S/P/Bld) [Vol rate/Area] mL/min/{1.73_m2} [facility] Comment on above: Performed By: #### C MP, PT, BNP, MG, CK, HS TROP, CBC, PTT ####[address] Globulin (S) [Mass/Vol] 3.0 g/dL [facility] Comment on above: Performed By: #### C MP, PT, BNP, MG, CK, HS TROP, CBC, PTT ####[address] Glucose [Mass/Vol] 204 mg/dL High 70-100 [facility] Comment on above: Result Comment: [place] Glucose Reference Range is dependent on time and content of last meal. Glucose of more than 200 mg/dL in a nonstressed, ambulatory subject supports the diagnosis of Diabetes Mellitus. ADA recommended reference range Performed By: #### C MP, PT, BNP, MG, CK, HS TROP, CBC, PTT ####[address] Potassium [Moles/Vol] 4.1 mmol/L Normal 3.5-5.1 [facility] Comment on above: Performed By: #### C MP, PT, BNP, MG, CK, HS TROP, CBC, PTT ####[place] [address] Protein [Mass/Vol] 7.3 g/dL Normal 6.4-8.9 [facility] Comment on above: Performed By: #### C MP, PT, BNP, MG, CK, HS TROP, CBC, PTT ####[place] [address] [place] [id number] [facility] Sodium [Moles/Vol] 139 mmol/L Normal 136-145 [facility] Comment on above: Performed By: #### C MP, PT, BNP, MG, CK, HS TROP, CBC, PTT ####[address] Urea nitrogen [Mass/Vol] 23 mg/dL Normal 7-25 [facility] Comment on above: Performed By: #### C MP, PT, BNP, MG, CK, HS TROP, CBC, PTT ####[place] [id number] [facility] Creatine Kinaseon 09-14-2022 CK [Catalytic activity/Vol] 100 U/L Normal [facility] Comment on above: Performed By: #### C MP, PT, BNP, MG, CK, HS TROP, CBC, PTT ####[place] [id number] [facility] Creatine kinase [Enzymatic a ctivity/volume] in Serum or PlasmaOrdered By: Uriah Wang on 09-14-2022 CK [Catalytic activity/Vol] 100 U/L [facility] Creatinine [Mass/volume] in Serum or PlasmaOrdered By: Uriah Wang on 09-14-2022 Creatinine [Mass/Vol] 1.05 mg/dL 0.70-1.30 [facility] ECG 12 lead ECGon 09-14-2022 ECG 12 lead ECG [facility] Main [place] [id number] Electrocardiograph Report Signed Patient: Tdaeo Thomas MR#: [id number] 0 : 1945 Acct:[id number] Age/Sex: 77 / M ADM Date: 09/14/22 Loc: Room: [address] [place] [address] Type: ADM IN Attending Dr: Charlie Varner [...] 71 BPM Confirmed by URIAH WANG DO ([id number]) on 09/15/2022 2:06:13 AM Referred By: Electronically Signed By:URIAH WANG DO Transcribed By: MUS Signed By Uriah Wang DO 09/15 0206 [facility] ECG 12 lead ECG [place] [id number] Electrocardiograph Report Signed Patient: Tadeo Thomas MR#: [id number] 0 : 1945 Acct:[id number] Age/Sex: 77 / M ADM Date: 09/14/22 Loc: Room: [address] [place] [address] Type: ADM IN Attending Dr: Charlie Varner [...] ECGs available Confirmed by URIAH WANG DO ([id number]) on 09/15/2022 2:06:13 AM Referred By: Electronically Signed By:URIAH WANG DO Transcribed By: MUS Signed By Uirah Wang DO 09/15 0206 Normal [facility] Eosinophils Auto (Bld) [#/Vo l]Ordered By: Uriah Wang on 09-14-2022 Eosinophils (Bld) [#/Vol] 0.1 10*3/uL 0.0-0.45 [facility] Eosinophils/100 WBC Auto (Bl d)Ordered By: Uriah Wang on 09-14-2022 Eosinophils/100 WBC (Bld) 0.5 % . [facility] Erythrocyte distribution wid th Auto (RBC) [Ratio]Ordered By: Uriah Wang on 09-14-2022 Erythrocyte distribution width (RBC) [Ratio] 14.0 % 12.0-14.8 [facility] Globulin Calc (S) [Mass/Vol] Ordered By: Uriah Wang on 09-14-2022 Globulin (S) [Mass/Vol] 3.0 g/dL [facility] Glucose [Mass/volume] in Ser um or PlasmaOrdered By: Uriah Wang on 09-14-2022 Glucose [Mass/Vol] 204 mg/dL 70-100 [facility] Comment on above: ADA recommended refe rence rangeRandom Glucose Reference Range is dependent on time and content of last meal. Glucose of more than 200 mg/dL in a nonstressed, ambulatory subject supports the diagnosis of Diabetes Mellitus. Glucose mean value [Mass/vol ume] in Blood Estimated from glycated hemoglobinOrdered By: Charlie Varner on 09-14-2022 Average glucose Estimated from glycated hemoglobin (Bld) [Mass/Vol] 180 mg/dL [facility] Hematocrit Auto (Bld) [Volum e fraction]Ordered By: Uriah Wang on 09-14-2022 Hematocrit (Bld) [Volume fraction] 36.9 % 38.8-50.0 [facility] Hemoglobin A1c percentageOrd ered By: Charlie Varner on 09-14-2022 HbA1c (Bld) [Mass fraction] 7.9 % 4.3-5.6 [facility] Comment on above: Increased risk for d iabetes: 5.7 - 6.4diabetes: >6.4glycemic control for adults with diabetes: <7.0 Hemoglobin [Mass/volume] in BloodOrdered By: Uriah Wang on 09-14-2022 Hemoglobin (Bld) [Mass/Vol] 12.8 g/dL 13.0-17.0 [facility] - CoagulationOrde red By: Uriah Wang on 09-14-2022 PT Coag (PPP) [Time] 11.5 s 9.0-12.9 [facility] Leukocytes [#/volume] correc ale for nucleated erythrocytes in Blood by Automated counOrdered By: Uriah Wang on 09-14-2022 WBC corrected for nucl RBC Auto (Bld) [#/Vol] 10.6 10*3/uL 4.1-10.5 [facility] Lymphocytes Auto (Bld) [#/Vo l]Ordered By: Uriah Wang on 09-14-2022 Lymphocytes (Bld) [#/Vol] 4.2 10*3/uL 1.00-4.8 [facility] Lymphocytes/100 WBC Auto (Bl d)Ordered By: Uriah Wang on 09-14-2022 Lymphocytes/100 WBC (Bld) 39.9 % . [facility] MCH Auto (RBC) [Entitic mass ]Ordered By: Uriah Wang on 09-14-2022 MCH (RBC) [Entitic mass] 34.7 pg 27.5-35.2 [facility] MCHC Auto (RBC) [Mass/Vol]Or dered By: Uriah Wang on 09-14-2022 MCHC (RBC) [Mass/Vol] 34.7 g/dL 32.5-35.6 [facility] MCV Auto (RBC) [Entitic vol] Ordered By: Uriah Wang on 09-14-2022 MCV (RBC) [Entitic vol] 100.0 fL 83.5-101 [facility] Magnesiumon 09-14-2022 Magnesium [Mass/Vol] 1.4 mg/dL Low 1.9-2.7 [facility] Comment on above: Result Comment: PERF ORMED BY: [facility] [address] [place] [id number] PATHOLOGIST [employer] WORKER KASSANDRA TSACK M.D. Performed By: #### C MP, PT, BNP, MG, CK, HS TROP, CBC, PTT ####[facility] [id number] [place] [address] [facility] Magnesium [Mass/volume] in S estela or PlasmaOrdered By: Uriah Wang on 09-14-2022 Magnesium [Mass/Vol] 1.4 mg/dL 1.9-2.7 [facility] Monocyte distribution width [Entitic volume] in Blood by AutomatedOrdered By: Uriah Wang on 09-14-2022 Monocyte distribution width Auto (Bld) [Entitic vol] 17.48 % 0.00-20.00 [facility] Monocytes Auto (Bld) [#/Vol] Ordered By: Uriah Wang on 09-14-2022 Monocytes (Bld) [#/Vol] 0.5 10*3/uL 0.0-0.8 [facility] Monocytes/100 WBC Auto (Bld) Ordered By: Uriah Wang on 09-14-2022 Monocytes/100 WBC (Bld) 4.5 % . [facility] Natriuretic peptide B [Mass/ Vol]Ordered By: Uriah Wang on 09-14-2022 Natriuretic peptide B (Bld) [Mass/Vol] 239.0 pg/mL 5-100 [facility] Neutrophils Auto (Bld) [#/Vo l]Ordered By: Uriah Wang on 09-14-2022 Neutrophils (Bld) [#/Vol] 5.8 10*3/uL 1.8-7.7 [facility] Neutrophils/100 WBC Auto (Bl d)Ordered By: Uriah Wang on 09-14-2022 Neutrophils/100 WBC (Bld) 54.8 % . [facility] No Panel InformationOrdered By: Uriah Wang on 09-14-2022 Estimated GFR (CKD-EPI) > 60.0 mL/Min [facility] Creatinine Clearance (Chem 60.89 [facility] Nucleated erythrocytes [Pres ence] in Blood by Automated countOrdered By: Uriah Wang on 09-14-2022 Nucleated RBC Auto Ql (Bld) 0.2 /100{WBC} 0-0.5 [facility] Partial Thromboplastin Timeo n 09-14-2022 aPTT Coag (Bld) [Time] 31.4 s Normal 25.1-36.5 [facility] Comment on above: Result Comment: PERF ORMED BY: [facility] [address] [place] [id number] PATHOLOGIST [employer] WORK[employer] KASSANDRA STACK M.D. Performed By: #### C MP, PT, BNP, MG, CK, HS TROP, CBC, PTT ####[facility] [id number] Platelet mean volume Auto (B ld) [Entitic vol]Ordered By: Uriah Wang on 09-14-2022 Platelet mean volume (Bld) [Entitic vol] 8.2 fL 6.6-10.1 [facility] Platelet poor plasma interna tional normalized ratio (INR) by coagulation assay (relatOrdered By: Uriah Wang on 09-14-2022 INR Coag (PPP) [Relative time] 1.0 {INR} [facility] Comment on above: INR Therapeutic Rang e [...] 09-14-2022 Platelets (Bld) [#/Vol] 228 10*3/uL 150-450 [facility] Potassium [Moles/volume] in Serum or PlasmaOrdered By: Uriah Wang on 09-14-2022 Potassium [Moles/Vol] 4.1 mmol/L 3.5-5.1 [facility] Protein [Mass/volume] in Ser um or PlasmaOrdered By: Uriah Wang on 09-14-2022 Protein [Mass/Vol] 7.3 g/dL 6.4-8.9 [facility] Prothrombin Time INRon 09-14 INR Coag (PPP) [Relative time] 1.0 {INR} Normal [facility] Comment on above: Result Comment: INR Therapeutic [...] BNP, MG, CK, HS TROP, CBC, PTT ####[place] [id number] [address] PT Coag (PPP) [Time] 11.5 s Normal 9.0-12.9 [facility] Comment on above: Performed By: #### C MP, PT, BNP, MG, CK, HS TROP, CBC, PTT ####[place] [id number] [address] RBC Auto (Bld) [#/Vol]Ordere d By: Uriah Wang on 09-14-2022 RBC (Bld) [#/Vol] 3.69 10*6/uL 3.90-5.60 [facility] Serum or plasma albumin/glob ulin mass ratioOrdered By: Uriah Wang on 09-14-2022 Albumin/Globulin [Mass ratio] 1.4 {ratio} [facility] Serum or plasma anion gap de terminationOrdered By: Uriah Wang on 09-14-2022 Anion gap [Moles/Vol] 12.5 mmol/L 6.0-15.0 [facility] Sodium [Moles/volume] in Ser um or PlasmaOrdered By: Uriah Wang on 09-14-2022 Sodium [Moles/Vol] 139 mmol/L 136-145 [facility] Troponin I High Sensitivityo n 09-14-2022 Troponin I High Sensitivity 14.5 pg/mL Normal 0.0-20.0 [facility] Comment on above: Result Comment: PERF ORMED BY: [place] [address] PATHOLOGIST [employer] WORKER KASSANDRA STACK M.D. Performed By: #### C MP, PT, BNP, MG, CK, HS TROP, CBC, PTT ####[facility] [id number] Troponin I.cardiac [Mass/vol ume] in Serum or Plasma by Detection limit <= 0.01 ng/Ordered By: Uriah Wang on 09-14-2022 Troponin I.cardiac DL <= 0.01 ng/mL [Mass/Vol] 14.5 pg/mL 0.0-20.0 [facility] Urea nitrogen [Mass/volume] in Serum or PlasmaOrdered By: Uriah Wang on 09-14-2022 Urea nitrogen [Mass/Vol] 23 mg/dL 7-25 [facility] WBC Auto (Bld) [#/Vol]Ordere d By: Uriah Wang on 09-14-2022 WBC (Bld) [#/Vol] 10.6 10*3/uL 4.1-10.5 [facility] XR chest 1V portableon 09-14 XR chest 1V portable [facility] [place] [address] XRay Report Signed Patient: Tadeo Thomas MR#: [id number] 0 : 1945 Acct:[id number] Age/Sex: 77 / M ADM Date: 09/14/22 [...] Germaine Storey M.D.09/14/2022 5:42 PM Dictation Location: [place] [address] Transcribed By: [facility] 09/14/221741 Dictated By: Germaine Storey MD 09/14/221739 Signed By: 09/14/221741 [facility] echo transthoracicon [facility] echo transthoracic [facility] Main [place] [address] [place] [address] Echocardiogram Signed Patient: Tadeo Thomas MR#: [id number] 0 : 1945 Acct:[id number] Age/Sex: 77 / M ADM Date: 09/11/22 Loc: Room: Type: [facility] Attending Dr: Aracelis Pedroza MD Ordering Provider: Aracelis Pedroza MD Date of Service: 09/11/22/ [facility] echo transthoracic: ABNORMAL EKG Copies to: Fior Saleem MD, [facility] Aracelis Pedroza MD BSA: 2.0 m2 BP: [...] At: 09/11/22919 Signed By: Fior Saleem MD, [facility] 09/11/22 1449 [facility] Auth for Release of Medical Recordson 05-12-2021 Auth for Release of Medical Records [id number] Normal [facility] Complete Blood Counton 04-21 Erythrocyte distribution width (RBC) [Ratio] 13.1 % Normal 11.0-15.0 [facility] Comment on above: Performed By: #### L IPD, CBC, FERR, CMP, FE Prof #### [facility] [address] [place], [place] [id number] Hematocrit (Bld) [Volume fraction] 38.9 % Normal 38.5-50.0 [facility] Comment on above: Performed By: #### L IPD, CBC, FERR, CMP, FE Prof #### [facility] [address] [place], [place] [id number] Hemoglobin (Bld) [Mass/Vol] 13.3 g/dL Normal 13.0-17.1 [facility] Comment on above: Performed By: #### L IPD, CBC, FERR, CMP, FE Prof #### [facility] [address] [place], [place] [id number] MCH (RBC) [Entitic mass] 34.5 pg High 27.0-33.0 [facility] Comment on above: Performed By: #### L IPD, CBC, FERR, CMP, FE Prof #### [facility] [address] [place], [place] [id number] MCHC (RBC) [Mass/Vol] 34.2 g/dL Normal 32.0-36.[address] [facility] Comment on above: Performed By: #### L IPD, CBC, FERR, CMP, FE Prof #### [facility] [address] [place], [place] [id number] MCV (RBC) [Entitic vol] 101 fL High 80-100 [facility] Specialist Comment on above: Performed By: #### L IPD, CBC, FERR, CMP, FE Prof #### [facility] [address] [place], [place] [id number] Platelet mean volume (Bld) [Entitic vol] 10.00 fL Normal 7.50-12.50 [facility] Comment on above: Performed By: #### L IPD, CBC, FERR, CMP, FE Prof #### [facility] [address] [place], [place] [id number] Platelets (Bld) [#/Vol] 183 10*3/uL Normal 140-400 [facility] Comment on above: Performed By: #### L IPD, CBC, FERR, CMP, FE Prof #### [facility] [address] [place], [place] [id number] RBC (Bld) [#/Vol] 3.86 10*6/uL Low 4.20-5.80 [facility] Comment on above: Performed By: #### L IPD, CBC, FERR, CMP, FE Prof #### [facility] [address] [place], [place] [id number] RDW-SD 48.6 fL Normal 37.0-50.0 [facility] Comment on above: Performed By: #### L IPD, CBC, FERR, CMP, FE Prof #### [facility] [address] [place], [place] [id number] WBC (Bld) [#/Vol] 8.9 10*3/uL Normal 3.8-11.0 [facility] [place] [facility] Comment on above: Performed By: #### L IPD, CBC, FERR, CMP, FE Prof #### [facility] [address] [place], [place] [id number] Comprehensive Metabolic Pane christian 04-21-2021 Albumin [Mass/Vol] 4.3 g/dL Normal 3.6-5.1 [facility] [place] [facility] Comment on above: Performed By: #### L IPD, CBC, FERR, CMP, FE Prof #### [facility] [address] [place], [place] [id number] Albumin/Globulin [Mass ratio] 2.2 {ratio} Normal 1.0-2.5 [facility] Comment on above: Performed By: #### L IPD, CBC, FERR, CMP, FE Prof #### [facility] [address] [place], [place] [id number] ALP [Catalytic activity/Vol] 89 U/L Normal 40-129 [facility] Comment on above: Performed By: #### L IPD, CBC, FERR, CMP, FE Prof #### [facility] [address] [place], [place] [id number] ALT [Catalytic activity/Vol] 19 U/L Normal 9-46 [facility] Comment on above: Result Comment: 02/12 Female reference range changed. Performed By: #### L IPD, CBC, FERR, CMP, FE Prof #### [facility] [address] [place], [place] [id number] Anion gap [Moles/Vol] 18 mmol/L Normal 12-[address] [facility] Comment on above: Result Comment: Effe ctive 03/20/2019 reference range changed. Performed By: #### L IPD, CBC, FERR, CMP, FE Prof #### [facility] [address] [place], [place] [id number] AST [Catalytic activity/Vol] 19 U/L Normal 10-40 [facility] Comment on above: Performed By: #### L IPD, CBC, FERR, CMP, FE Prof #### [facility] [address] [place], [place] [id number] Bilirubin [Mass/Vol] 0.32 mg/dL Normal 0.30-1.20 [facility] Comment on above: Performed By: #### L IPD, CBC, FERR, CMP, FE Prof #### [facility] [address] [place], [place] [id number] BUN/CREA 17 Ratio Normal 6-22 [facility] Comment on above: Performed By: #### L IPD, CBC, FERR, CMP, FE Prof #### [facility] [address] [place], [place] [id number] Calcium [Mass/Vol] 9.3 mg/dL Normal 8.6-10.2 [facility] Comment on above: Performed By: #### L IPD, CBC, FERR, CMP, FE Prof #### [facility] [address] [place], [place] [id number] Chloride [Moles/Vol] 104 mmol/L Normal 98-107 [facility] Comment on above: Performed By: #### L IPD, CBC, FERR, CMP, FE Prof #### [facility] [address] [place], [place] [id number] CO2 [Moles/Vol] 26 mmol/L Normal 20-31 [facility] Comment on above: Performed By: #### L IPD, CBC, FERR, CMP, FE Prof #### [facility] [address] [place], [place] [id number] Creatinine [Mass/Vol] 0.8 mg/dL Normal 0.7-1.[address] [facility] Comment on above: Performed By: #### L IPD, CBC, FERR, CMP, FE Prof #### [facility] [address] [place], [place] [id number] eGFRAA 122 mL/min/1.73m2 Normal >60 [facility] Comment on above: Performed By: #### L IPD, CBC, FERR, CMP, FE Prof #### [facility] [address] [place], [place] [id number] eGFRNAA 101 mL/min/1.73m2 Normal >60 Thomas suzy [place] [facility] Comment on above: Performed By: #### L IPD, CBC, FERR, CMP, FE Prof #### [facility] [address] [place], [place] [id number] Globulin (S) [Mass/Vol] 2.0 g/dL Normal 1.9-3.7 [facility] Comment on above: Performed By: #### L IPD, CBC, FERR, CMP, FE Prof #### [facility] [address] [place], [place] [id number] Glucose [Mass/Vol] 173 mg/dL High 65-99 [facility] doming[facility] [place] [facility] Comment on above: Result Comment: For FASTING Glucose --- ADA reference ranges: Normal 65-99 mg/dl Prediabetes 100-125 Diabetes >/= 126 Performed By: #### L IPD, CBC, FERR, CMP, FE Prof #### [facility] [address] [place], [place] [id number] Potassium [Moles/Vol] 4.3 mmol/L Normal 3.5-5.[address] [facility] Comment on above: Performed By: #### L IPD, CBC, FERR, CMP, FE Prof #### [facility] [address] [place], [place] [id number] Protein [Mass/Vol] 6.3 g/dL Normal 6.1-8.1 [facility] dom[facility] [place] [facility] Comment on above: Performed By: #### L IPD, CBC, FERR, CMP, FE Prof #### [facility] [address] [place], [place] [id number] Sodium [Moles/Vol] 143 mmol/L Normal 135-146 [facility] dom[facility] [place] [facility] Comment on above: Performed By: #### L IPD, CBC, FERR, CMP, FE Prof #### [facility] [address] [place], [place] [id number] Urea nitrogen [Mass/Vol] 13 mg/dL Normal 7-25 [facility] Comment on above: Performed By: #### L IPD, CBC, FERR, CMP, FE Prof #### [facility] [address] [place], [place] [id number] Ferritinon 04-21-2021 FERR 80.7 ng/mL Normal 30.0-400.0 [facility] Comment on above: Performed By: #### L IPD, CBC, FERR, CMP, FE Prof #### [facility] [address] [place], [place] [id number] Hemoglobin A1Con 04-21-2021 EAG 180.03 Normal [facility] Comment on above: Performed By: #### A 1C #### [facility] [address] [place], [place] [id number] HbA1c (Bld) [Mass fraction] 7.9 % High 4.0-6.0 [facility] Comment on above: Performed By: #### A 1C #### [facility] [address] [place], [place] [id number] Iron Profileon 04-21-2021 %FESAT 34 % Normal 15-60 [facility] Comment on above: Performed By: #### L IPD, CBC, FERR, CMP, FE Prof #### [facility] [address] [place], [place] [id number] FE 113 ug/dL Normal 50-180 [facility] Comment on above: Result Comment: Refe rence range change 01/29/2017. Prior reference range F 37-145 ug/dL, M 59-158 ug/dL. Performed By: #### L IPD, CBC, FERR, CMP, FE Prof #### [facility] [address] [place], [place] [id number] TIBC 332 ug/dL Normal 250-425 [facility] Comment on above: Performed By: #### L IPD, CBC, FERR, CMP, FE Prof #### [facility] [address] [place], [place] [id number] UIBC 219 ug/dL Normal 112-347 [facility] Comment on above: Performed By: #### L IPD, CBC, FERR, CMP, FE Prof #### [facility] [address] [place], [place] [id number] Lipid Panelon 04-21-2021 Cholesterol [Mass/Vol] 143 mg/dL Normal 125-200 [facility]: Result Comment: Low risk < 200mg/dL Borderline risk 201-239 mg/dl High risk > or equal to 240 Performed By: #### L IPD, CBC, FERR, CMP, FE Prof #### [facility] [address] [place], [place] [id number] Cholesterol in HDL [Mass/Vol] 50 mg/dL Normal >40 [facility] Comment on above: Result Comment: High Cardiovascular Risk HDL <40 mg/dL Low Cardiovascular Risk HDL > or equal to 60 mg/dl Performed By: #### L IPD, CBC, FERR, CMP, FE Prof #### [facility] [address] [place], [place] [id number] Cholesterol in LDL [Mass/Vol] 78 mg/dL Normal [facility] Comment on above: Result Comment: LDL ATP III CLASSIFICATION LDL less than 100 mg/dl Optimal LDL 100-129 mg/dl Near or above optimal LDL 130-159 Borderline high LDL 160-189 High LDL greater than 189 mg/dl Very High Performed By: #### L IPD, CBC, FERR, CMP, FE Prof #### [facility] [address] [place], [place] [id number] Cholesterol in VLDL [Mass/Vol] 15 mg/dL Normal [facility] Comment on above: Performed By: #### L IPD, CBC, FERR, CMP, FE Prof #### [facility] [address] [place], [place] [id number] Cholesterol.total/Chol esterol in HDL [Mass ratio] 3 {ratio} Normal [facility] Comment on above: Performed By: #### L IPD, CBC, FERR, CMP, FE Prof #### [facility] [address] [place], [place] [id number] Triglyceride [Mass/Vol] 73 mg/dL Normal 30-150 [facility] Comment on above: Result Comment: TRIG ATPIII CLASSIFICATIONS TRIG less than 150 mg/dl Normal TRIG 150-199 mg/dl Borderline High TRIG 200-500 mg/dl High TRIG greather than 500 mg/dl Very High Performed By: #### L IPD, CBC, FERR, CMP, FE Prof #### [facility] [address] [place], [place] [id number] Vitamin B12on 04-21-2021 Cobalamin (Vitamin B12) [Mass/Vol] 369 pg/mL Normal 211-946 [facility] Comment on above: Performed By: #### B 12 #### [facility] [address] [place], [place] [id number] MRI Brain w/o + w/on 021 MRI Brain w/o + w/ HISTORY: Dizziness. [...] by Chaim Goodrich on 02/25/2021 1101 Normal [facility] Basic Metabolic Panelon 12-0 Anion gap [Moles/Vol] 18 mmol/L Normal 12-20 [facility] Comment on above: Result Comment: Effe ctive 03/20/2019 reference range changed. Performed By: #### B MP #### [facility] [address] [place], [place] [id number] Calcium [Mass/Vol] 9.5 mg/dL Normal 8.6-10.2 [facility] Comment on above: Performed By: #### B MP #### [facility] [address] [place], [place] [id number] Chloride [Moles/Vol] 101 mmol/L Normal 98-107 [facility] Comment on above: Performed By: #### B MP #### [facility] [address] [place], [place] [id number] CO2 [Moles/Vol] 26 mmol/L Normal 20-31 [facility] Comment on above: Performed By: #### B MP #### [facility] [address] [place], [place] [id number] Creatinine [Mass/Vol] 0.7 mg/dL Normal 0.7-1.[address] [facility] Comment on above: Performed By: #### B MP #### [facility] [address] [place], [place] [id number] eGFRAA 128 mL/min/1.73m2 Normal >60 [facility] Comment on above: Performed By: #### B MP #### [facility] [address] [place], [place] [id number] eGFRNAA 106 mL/min/1.73m2 Normal >60 [facility] Comment on above: Performed By: #### B MP #### [facility] [address] [place], [place] [id number] Glucose [Mass/Vol] 196 mg/dL High 65-99 [facility] Special[facility] Comment on above: Result Comment: For FASTING Glucose --- ADA reference ranges: Normal 65-99 mg/dl Prediabetes 100-125 Diabetes >/= 126 Performed By: #### B MP #### [facility] [address] [place], [place] [id number] Potassium [Moles/Vol] 4.2 mmol/L Normal 3.5-5.[address] [facility] Comment on above: Performed By: #### B MP #### [facility] [address] [place], [place] [id number] Sodium [Moles/Vol] 141 mmol/L Normal 135-146 [facility] Special[facility] Comment on above: Performed By: #### B MP #### [facility] [address] [place], [place] [id number] Urea nitrogen [Mass/Vol] 13 mg/dL Normal 7-25 [place] [facility] Comment on above: Performed By: #### B MP #### [facility] [address] [facility] [place] [id number] Vital Signs Date Time Vital Sign Value Performing Clinician Facility 03-01-2023 09:33-0500 Body height 170.2 cm Ketan Lucero MD Work Phone: [facility] 03-01-2023 09:33-0500 Body mass index (BMI) [Ratio] 23.96 kg/m2 Ketan Lucero MD Work Phone: [facility] 03-01-2023 09:33-0500 Body weight 69.4 kg Ketan Lucero MD Work Phone: [facility] 03-01-2023 09:33-0500 Diastolic blood pressure 50 mm[Hg] Ketan Lucero MD Work Phone: [facility] 03-01-2023 09:33-0500 Heart rate 62 /min Ketan Lucero MD Work Phone: [facility] 03-01-2023 09:33-0500 Systolic blood pressure 90 mm[Hg] Ketan Lucero MD Work Phone: [facility] 02-11-2023 14:06-0500 Body temperature 97.3 [degF] MD Aracelis Pedroza Work Phone: [facility] 02-11-2023 14:06-0500 Diastolic blood pressure 68 mm[Hg] MD Aracelis Pedroza Work Phone: [facility] 02-11-2023 14:06-0500 Heart rate 84 /min MD Aracelis Pedroza Work Phone: [facility] 02-11-2023 14:06-0500 Respiratory rate 18 /min MD Aracelis Pedroza Work Phone: [facility] 02-11-2023 14:06-0500 SaO2% (BldA) [Mass fraction] 97 % MD Aracelis Pedroza Work Phone: [facility] 02-11-2023 14:06-0500 Systolic blood pressure 122 mm[Hg] MD Aracelis Pedroza Work Phone: [facility] 02-11-2023 05:16-0500 Body weight 69 kg MD Aracelis Pedroza Work Phone: [facility] 02-10-2023 16:33-0500 Body height 172.72 cm MD Aracelis Pedroza Work Phone: [facility] 02-02-2023 14:19-0500 Diastolic blood pressure 73 mm[Hg] MD Aracelis Pedroza Work Phone: [facility] 02-02-2023 14:19-0500 Heart rate 78 /min MD Aracelis Pedroza Work Phone: [facility] 02-02-2023 14:19-0500 Respiratory rate 18 /min MD Aracelis Pedroza Work Phone: [facility] 02-02-2023 14:19-0500 SaO2% (BldA) [Mass fraction] 99 % MD Aracelis Pedroza Work Phone: [facility] 02-02-2023 14:19-0500 Systolic blood pressure 119 mm[Hg] MD Aracelis Pedroza Work Phone: [facility] 02-02-2023 11:50-0500 Body height 193.04 cm MD Aracelis Pedroza Work Phone: [facility] 02-02-2023 11:50-0500 Body temperature 98.1 [degF] MD Aracelis Pedroza Work Phone: [facility] 02-02-2023 11:50-0500 Body weight 74.1 kg MD Aracelis Pedroza Work Phone: [facility] 01-07-2023 11:15-0400 Body height 170.2 cm Ketan Lucero MD Work Phone: [facility] 01-07-2023 11:15-0400 Body mass index (BMI) [Ratio] 25.69 kg/m2 Ketan Lucero MD Work Phone: [facility] 01-07-2023 11:15-0400 Body weight 74.39 kg Ketan Lucero MD Work Phone: [facility] 01-07-2023 11:15-0400 Diastolic blood pressure 70 mm[Hg] Ketan Lucero MD Work Phone: [facility] 01-07-2023 11:15-0400 Heart rate 66 /min Ketan Lucero MD Work Phone: [facility] 01-07-2023 11:15-0400 Systolic blood pressure 118 mm[Hg] Ketan Lucero MD Work Phone: [facility] 11-25-2022 13:48-0400 Body height 167.64 cm Aracelis Pedroza Work Phone: [facility] [address] DO Work Phone: 11-25-2022 13:48-0400 Body mass index (BMI) [Ratio] 27.28 kg/m2 Aracelis Pedroza Work Phone: [facility] 250 DO Work Phone: 11-25-2022 13:48-0400 Body surface area Derived from formula 1.86 m2 Aracelis Goodson [place] Work Phone: [facility] 250 DO Work Phone: 11-25-2022 13:48-0400 Body weight 76.66 kg Aracelis Pedroza Work Phone: [facility] 250 DO Work Phone: 11-25-2022 13:48-0400 Diastolic blood pressure 70 mm[Hg] Aracelis Pedroza Work Phone: [facility] [address] DO Work Phone: 11-25-2022 13:48-0400 Heart rate 62 /min Aracelis Pedroza Work Phone: [facility] 250 DO Work Phone: 11-25-2022 13:48-0400 Systolic blood pressure 146 mm[Hg] Aracelis Pedroza Work Phone: [facility] 250 DO Work Phone: 10-21-2022 12:29-0400 Body height 167.64 cm Aracelis Pedroza Work Phone: [facility] 250 DO Work Phone: 10-21-2022 12:29-0400 Body mass index (BMI) [Ratio] 27.12 kg/m2 Aracelis Pedroza Work Phone: [facility] 250 DO Work Phone: 10-21-2022 12:29-0400 Body surface area Derived from formula 1.86 m2 Aracelis Pedroza Work Phone: [facility] 250 DO Work Phone: 10-21-2022 12:29-0400 Body weight 76.2 kg Aracelis Pedroza Work Phone: [facility] 250 DO Work Phone: 10-21-2022 12:29-0400 Diastolic blood pressure 60 mm[Hg] Aracelis Pedroza Work Phone: [facility] 250 DO Work Phone: 10-21-2022 12:29-0400 Heart rate 65 /min Aracelis Pedroza Work Phone: [facility] 250 DO Work Phone: 10-21-2022 12:29-0400 Systolic blood pressure 106 mm[Hg] Aracelis Pedroza Work Phone: [facility] 250 DO Work Phone: 09-25-2022 15:44-0400 Body temperature 97.7 [degF] Aracelis Pedroza Work Phone: [facility] 250 DO Work Phone: 09-25-2022 15:43-0400 Body weight 79.38 kg Aracelis Goodson Preston Work Phone: [facility] 250 DO Work Phone: 09-25-2022 15:43-0400 Diastolic blood pressure 74 mm[Hg] Aracelis Pedroza Work Phone: [facility] 250 DO Work Phone: 09-25-2022 15:43-0400 Heart rate 58 /min Aracelis Pedroza Work Phone: [facility] 250 DO Work Phone: 09-25-2022 15:43-0400 Systolic blood pressure 122 mm[Hg] Aracelis Pedroza Work Phone: [facility] 250 DO Work Phone: 09-18-2022 12:00-0400 Diastolic blood pressure 88 mm[Hg] MD Aracelis Pedroza Work Phone: [facility] 09-18-2022 12:00-0400 Heart rate 72 /min MD Aracelis Pedroza Work Phone: [facility] 09-18-2022 12:00-0400 Respiratory rate 18 /min MD Aracelis Pedroza Work Phone: [facility] 09-18-2022 12:00-0400 SaO2% (BldA) [Mass fraction] 100 % MD Aracelis Pedroza Work Phone: [facility] 09-18-2022 12:00-0400 Systolic blood pressure 134 mm[Hg] MD Aracelis Pedroza Work Phone: [facility] 09-18-2022 07:56-0400 Body temperature 97.9 [degF] MD Aracelis Pedroza Work Phone: [facility] 07-07-2023 06:00-0400 Body weight 79.1 kg MD Aracelis Pedroza Work Phone: [facility] 09-17-2022 19:56-0400 Body height 172.72 cm MD Aracelis Pedroza Work Phone: [facility] 09-17-2022 19:56-0400 Body mass index (BMI) [Ratio] 26.4 kg/m2 MD Aracelis Pedroza Work Phone: [facility] 09-17-2022 17:03-0400 Inhaled oxygen flow rate 6 L/min MD Aracelis Pedroza Work Phone: [facility] 09-14-2022 22:30-0400 Diastolic blood pressure 73 mm[Hg] MD Aracelis Pedroza Work Phone: [facility] 09-14-2022 22:30-0400 Heart rate 64 /min MD Aracelis Pedroza Work Phone: [facility] 09-14-2022 22:30-0400 Respiratory rate 18 /min MD Aracelis Pedroza Work Phone: [facility] 09-14-2022 22:30-0400 SaO2% (BldA) [Mass fraction] 96 % MD Aracelis Pedroza Work Phone: [facility] 09-14-2022 22:30-0400 Systolic blood pressure 130 mm[Hg] MD Aracelis Pedroza Work Phone: [facility] 09-14-2022 17:08-0400 Body height 172.72 cm MD Aracelis Pedroza Work Phone: [facility] 09-14-2022 17:08-0400 Body weight 83 kg MD Aracelis Pedroza Work Phone: [facility] 09-14-2022 17:02-0400 Body temperature 97.8 [degF] MD Aracelis Pedroza Work Phone: [facility] Encounters Encounter Date Encounter Type Care Provider Facility Start: 03-22-2023 End: 03-22-2023 ambulatory ARACELIS PEDROZA Not Available Start: 03-01-2023 End: 03-01-2023 ambulatory [facility] Ambulatory Start: 03-01-2023 End: 03-01-2023 Office outpatient visit 25 minutes Ketan Lucero MD Work Phone: [facility] Comment on above: Sick sinus syndrome due to sinoatrial node dysfunction (CMS/HCC) (Primary Dx); Atrial fibrillation, unspecified type (CMS/HCC); Paroxysmal atrial fibrillation (CMS/HCC); Pacemaker; Mixed hyperlipidemia; Hypertension, benign; Anticoagulated Start: 02-03-2023 End: 02-11-2023 Evaluation and management of inpatient Miguel Hinson Facility:[facility] Start: 02-03-2023 End: 02-11-2023 Evaluation and management of inpatient MD Aracelis Pedroza Work Phone: [facility] Work Phone: Start: 02-02-2023 Evaluation and manag ement of inpatient MD Aracelis Pedroza Work Phone: [facility] Work Phone: Start: 02-02-2023 observation encounter MD Gwyn Pedroza Work Phone: [facility] Work Phone: Start: 01-07-2023 End: 01-07-2023 ambulatory [facility]ulatory Start: 01-07-2023 End: 01-07-2023 Office outpatient visit 25 minutes Ketan Lucero MD Work Phone: [facility] Comment on above: Anticoagulated (Prim chivo Dx); Sick sinus syndrome due to sinoatrial node dysfunction (CMS/HCC); Pacemaker; Mixed hyperlipidemia; Hypertension, benign; Paroxysmal atrial fibrillation (CMS/HCC) Start: 12-04-2022 Chart Update Aracelis Pedroza Work Phone: [facility] 250 DO Work Phone: Start: 11-25-2022 Office outpatient vi sit 25 minutes Aracelis Pedroza Work Phone: [facility] DO Work Phone: Start: 11-25-2022 ambulatory Olga Wyatt Facility:1 [id number] Start: 11-17-2022 End: 11-17-[address] Aracelis Pedroza Facility:[id number] Start: 11-17-2022 End: 11-17-2022 Patient encounter procedure MD Aracelis Pedroza Work Phone: [facility]-Pacemaker Check Start: 11-13-2022 Chart Update Aracelis Pedroza Work Phone: [facility] 600 DO Work Phone: Start: 11-12-2022 Telephone encounter Aracelis herrera Work Phone: [facility] 600 DO Work Phone: Start: 11-12-[address] Aracelis Pedroza Facility:[id number] Start: 10-21-2022 Office outpatient vi sit 25 minutes Aracelis Pedroza Work Phone: [facility] 250 DO Work Phone: Start: 10-21-2022 Patient encounter procedure Aracelis Pedroza Work Phone: [facility] 250 DO Work Phone: Start: 10-21-2022 ambulatory Olga Wyatt Facility:1 [id number] Start: 09-30-2022 Patient encounter procedure Aracelis Pedroza Work Phone: [facility] 250 DO Work Phone: Start: 09-25-2022 Postop follow up vis it related to original px Aracelis Pedroza Work Phone: [facility] 250 DO Work Phone: Start: 09-25-2022 End: 09-25-[address] Aracelis Pedroza Facility: Start: 09-21-2022 Telephone encounter Ketan Hall MD Work Phone: [facility] 250 DO Work Phone: Start: 09-18-[address] Aracelis Pedroza Facilit y:[id number] Start: 09-18-[address] Aracelis Pedroza Facilit y:[id number] Start: 09-18-[address] Aracelis Pedroza Facility:[id number] Start: 09-17-[address] Ketan Lucero II Facility:[id number] Start: 09-14-2022 End: 09-18-2022 Evaluation and management of inpatient Charlie Telly Facility:[facility] Start: 09-14-2022 End: 09-18-2022 Evaluation and management of inpatient MD Aracelis Pedroza Work Phone: [facility] Work Phone: Start: 09-11-2022 End: 09-11-2022 ambulatory Aracelis Pedroza Facility:[facility] Start: 09-11-2022 End: 09-11-2022 Patient encounter procedure MD Aracelis Pedroza Work Phone: [facility]Electrodiagnostic s Work Phone: Start: 09-11-[address] Aracelis Pedroza Facilit y:[id number] Radionuclide heart s tudy normal Aracelis Pedroza Work Phone: [facility] 250 DO Work Phone: Procedures Date Procedure [...] Work Phone: Start: 03-15-2019 Total colonoscopy Gwyn julius Kellee Pedroza Work Phone: Excision of cyst Aracelis Kellee salazar Work Phone: Insertion of pacemak er pulse generator Aracelis Pedroza Work Phone: Jaw and temporomandi bular joint operations Aracelis Pedroza Work Phone: Mouth and face operations Jennifer andrea Kellee Pedroza Work Phone: Plan of Treatment Date Care Activity Detail Author Start: 10-18-2029 DTaP/Tdap/Td Vaccines (2 - Td or Tdap) DTaP/Tdap/Td Vaccines (2 - Td or Tdap) [facility] Start: 12-17-2023 Urine screening for protein Diabetes: Urine Protein Screening [facility] Start: 08-06-2023 End: 08-06-2023 Patient encounter procedure 08/06/2023 2:50 PM EDT Office Visit [address] [id number] Ketan Lucero MD [address] [place] [address] 2, [address] [place], [place] [id number] [facility] Start: 06-11-2023 End: 06-11-2023 Patient encounter procedure 06/11/2023 2:10 PM EDT Office Visit [address] [place] [phone] Ketan Lucero MD 3 [facility] 2, [address] [place] [address] [facility] Start: 04-23-2023 Glaucoma screening Diabetes: Retinopathy Screening [facility] Start: 04-08-2023 Hemoglobin A1c measurement Diabetes: Hemoglobin A1C [facility] Start: 02-11-2023 [facility] Start: 02-02-2023 Hospital admission [facility] Start: 02-02-2023 [facility] Start: 01-07-2023 FUV, Provider: Ketan Lucero, Status: Pen, Time: 10:50 AM FUV, Provider: Ketan Lucero, Status: Pen, Time: 10:50 AM [facility] 250 DO Work Phone: Start: 11-25-2022 FUV, Provider: Olga Landon, Status: Pen, Time: 1:30 PM FUV, Provider: Olga Landon, Status: Pen, Time: 1:30 PM [facility] 250 DO Work Phone: Start: 11-12-2022 ECHO, Provider: JOSE [facility]VI ULTRASOUND 01,[id number], Status: Pen, Time: 2:30 PM ECHO, Provider: JOSE [facility] ULTRASOUND 01,[id number], Status: Pen, Time: 2:30 PM [facility] Work Phone: Start: 10-21-2022 FUV, Provider: Olga Landon, Status: Pen, Time: 12:30 PM FUV, Provider: Olga Landon, Status: Pen, Time: 12:30 PM [facility] 250 DO Work Phone: Start: 09-25-2022 ALEXA, Provider: CHRISTINE GRACIA CRIMINOLOGY TEACHER 1,[id number], Status: Pen, Time: 11:00 AM ALEXA, Provider: CHRISTINE GRACIA CRIMINOLOGY TEACHER 1,[id number], Status: Pen, Time: 11:00 AM [facility] 250 DO Work Phone: Start: 09-18-2022 [facility] Start: 09-17-2022 [facility] Start: 09-15-2022 Blood chemistry [facility] Start: 09-15-2022 [facility] Start: 09-14-2022 Hospital admission [facility] Start: 09-14-2022 Referral to elementary assistant teacher [facility] Start: 09-14-2022 [facility] Start: 09-14-2022 [facility] Start: 03-07-2022 COVID-19 Vaccine (4 - Pfizer series) COVID-19 Vaccine (4 - Pfizer series) [facility] Start: 01-14-1962 Hepatitis C screening Hepatitis C Screening [facility] Start: 01-14-1954 Diabetic foot examination Diabetes: Foot Exam [facility] Start: 01-14-1954 Glaucoma screening Diabetes: Retinopathy Screening [facility] Start: 1945 Hemoglobin A1c measurement Diabetes: Hemoglobin A1C [facility] Start: 1944 Lipid panel Lipid Panel [facility] Start: 1945 Medicare Annual Wellness Visit Medicare Annual Wellness Visit (AWV) [facility] Patient referral [facility] Work Phone: Immunizations Immunization Date Immunization Notes Care Provider Jerry fowler 11-24-2022 Fluad Quadrivalent 0 .5 ML Intramuscular Prefilled Syringe Aracelis Pedroza Work Phone: [facility] 01-10-2022 Pfizer COVID-19 Vac Bivalent 30 MCG/0.3ML Intramuscular Suspension Aracelis Pedroza Work Phone: [facility] 250 DO Work Phone: 12-25-2021 influenza, high dose seasonal, preservative-free [facility]el[facility] Work Phone: 12-18-2020 Pfizer-BioNTech COVID-19 Vacc 30 MCG/0.3ML Intramuscular Suspension Aracelis Pedroza Work Phone: [facility] 250 DO Work Phone: 05-03-2020 Pfizer-[place] Town COVID-19 Vacc 30 MCG/0.3ML Intramuscular Suspension Aracelis Pedroza Work Phone: [facility] 250 DO Work Phone: 04-12-2020 Pfizer-BioNTech COVID-19 Vacc 30 MCG/0.3ML Intramuscular Suspension Aracelis Pedroza Work Phone: [place] [address] DO Work Phone: 11-29-2019 Seasonal trivalent influenza vaccine, adjuvanted, preservative free Aracelis Kellee Preston Work Phone: [facility] 10-18-2019 tetanus and diphther ia toxoids, adsorbed, preservative free, for adult use (5 Lf of tetanus toxoid and 2 Lf of diphtheria toxoid) Aracelis Kellee Preston Work Phone: [place] [address] DO Work Phone: 01-02-2019 Seasonal trivalent influenza vaccine, adjuvanted, preservative free Aracelis Kellee Preston Work Phone: [facility] 12-28-2018 zoster vaccine recombinant Aracelis Pedroza Work Phone: [place] [address] DO Work Phone: 09-21-2018 zoster vaccine recombinant Aracelis Pedroza Work Phone: [place] [address] DO Work Phone: 11-25-2017 Seasonal trivalent influenza vaccine, adjuvanted, preservative free Aracelis Kellee Preston Work Phone: [facility] 01-11-2017 influenza, injectabl e, quadrivalent, preservative free Aracelis Goodson Preston Work Phone: [place] [address] DO Work Phone: Payers Date Payer Category Payer Unknown [id number] 2022 Medicare [id number] 2022 Self-pay [id number] 2021 Medicare [id number] 2021 Unknown 1945 Unknown [id number] 2.16.8 [id number] 1944 Unknown [id number] 2.16. 840.1.592938.3.579.2.356 1944 Unknown [id number] 2.16. 840.1.655674.3.579.2.356 1944 Unknown [id number] 2.16. 840.1.083473.3.579.2.356 1944 Unknown [id number] 2.16. 840.1.371009.3.579.2.356 1944 Unknown [id number] 2.16. 840.1.461002.3.579.2.356 1944 Unknown [id number] 2.16. 840.1.714693.3.579.2.356 1944 Unknown [id number] 2.16. 840.1.024927.3.579.2.356 1944 Unknown [id number] 2.16. 840.1.044674.3.579.2.356 1944 Unknown [id number] 2.16. 840.1.403333.3.579.2.356 1944 Unknown [id number] 2.16.8 40.1.027605.3.579.2.1244 1944 Unknown [id number] 2.16.8 40.1.717998.3.579.2.1244 1944 Unknown [id number] 2.16.840 .1.593386.3.579.2.1259 Unknown [id number] Unknown [id number] 2.16.8 40.1.587761.3.579.2.531 Unknown [id number] 2.16.8 40.1.096661.3.579.2.531 Unknown [id number] 2.16.8 40.1.781559.3.579.2.531 Unknown [id number] 2.16.8 40.1.219391.3.579.2.531 Unknown [id number] 2.16.8 40.1.053227.3.579.2.531 Social History Date Type Detail Facility Tobacco smoking stat [facility] Unknown if ever smoked [facility] Start: 1945 Sex Assigned At Male F [facility] Start: 09-14-2022 Tobacco smoking stat [facility] Never smoked tobacco (finding) [facility] Start: 09-17-2022 End: 01-07-2023 Tobacco smoking status NYIS Ex-smoker (finding) [facility] Start: 01-07-2023 End: 03-01-2023 Consumes alcohol occasionally Consumes alcohol occasionally [facility] 250 DO Work Phone: Comment on above: coffee 1 cup daily p op couple daily; quit in the 80's; End: 03-15-1982 History of tobacco use Current smoker [facility] Work Phone: End: 03-15-1982 History of tobacco use Cigarette Smoker [facility] Work Phone: Start: 01-07-2023 Tobacco use and exposure Smokeless tobacco non-user [facility] Work Phone: Start: 01-07-2023 End: 03-01-2023 Alcohol intake Current drinker of alcohol (finding) [facility] Work Phone: Start: 01-07-2023 End: 03-01-2023 Tobacco use panel [facility] Work Phone: Start: 01-07-2023 Alcohol Comment occassionally [facility] Work Phone: Start: 1945 Sex Assigned At Not on file [facility] Work Phone: Start: 12-28-2022 End: 03-01-2023 Exposure to SARS-CoV-2 (event) Not sure [facility] Start: 03-01-2023 Alcohol Comment rarely [facility] Work Phone: Medical Equipment Procedure Code Equipment Code Equipment Origin al Text Equipment Identifier Dates Insertion, pacemaker Endocardial pacing lead [id number] FDA Start: 09-17-2022 Insertion, pacemaker Endocardial pacing lead [id number] FDA Start: 09-17-2022 Insertion, pacemaker Dual-chamber implantable pacemaker, rate-responsive [id number] FDA Start: 09-17-2022 Goals Date Patient Goal Desired Activity /State Functional Status Date Assessment Result Facility 02-11-2023 Functional status 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 Work Phone: Mental Status Date Assessment Result Facility 02-11-2023 Cognitive function Cognitive Sta tus Patient at Baseline [facility] Work Phone: 09-18-2022 Cognitive function Cognitive Sta tus Patient at Baseline [facility] Work Phone: 09-14-2022 Cognitive function Cognitive Sta tus Patient at Baseline [facility] Work Phone: Clinical Notes 09-14-2022 to 03-01-2023 [...] on present therapy implemented by Dr. Yoko Cevallos Continue same. 2. Sick sinus syndrome due to [...] complaint or complication. documented in this encounter [facility] Work Phone: 03-01-2023 Instructions Oumou Jacobs [...] Prevention Education Given documented in this encounter [facility] Work Phone: 02-10-2023 Progress note Note Date/Time February 10, 2023 3:24pm [facility] [address] [place] [address] Hospitalist Progress Note Signed Patient: Tadeo Thomas MR#: [id number] : 1945 Acct:[id number] Age/Sex: 78 / M Adm Date: 3 Loc: Room: [address] [place] [address] Type: ADM IN Attending Dr: Miguel Hinson [...] <Electronically signed by Miguel Hinson MD> 02/10/23 1527 [facility] Work Phone: 1(517) 483-521511-28-2023 Progress note Author Miguel Hinson [facility] February 09, 2023 12:48pm Note Date/Time February 09, 2023 12:48pm [facility] [address] [place] [address] Hospitalist Progress Note Signed Patient: Tadeo Thomas MR#: [id number] : 1945 Acct:[id number] Age/Sex: 78 / M Adm Date: 3 Loc: 3T Room: [address] [place] [address] Type: ADM IN Attending Dr: Miguel Hinson [...] mg 02/02/23 15:27 Bisacodyl 5 [address] GARCIA 02/02/24 15:26 DAILY PRN Constipation Diltiazem HCl [...] <Electronically signed by Miguel Hinson MD> 02/09/23 5615 [facility] Work Phone: 1(722) 691-383011-27-2023 Progress note Author Miguel Hinson [facility] February 08, 2023 2:07pm Note Date/Time February 08, 2023 2:07pm [facility] [address] [place] [address] Hospitalist Progress Note Signed Patient: Tadeo Thomas MR#: [id number] : 1945 Acct:[id number] Age/Sex: 78 / M Adm Date: 3 Loc: Room: [address] [place] [address] Type: ADM IN Attending Dr: Miguel Hinson [...] <Electronically signed by Miguel Hinson MD> 02/08/23 7759 [facility] Work Phone: 1(763) 271-123111-26-2023 Progress note Author Miguel Hinson [facility] February 07, 2023 11:46am Note Date/Time February 07, 2023 11:45am [facility] [address] [place] [address] Hospitalist Progress Note Signed Patient: Tadeo Thomas MR#: [id number] : 1945 Acct:[id number] Age/Sex: 78 / M Adm Date: 3 Loc: 3T Room: [address] [place] [address] Type: ADM IN Attending Dr: Miguel Hinson [...] made Documented By: Miguel Hinson MD 02/07/23 11 42 Signed By: <Electronically signed by Miguel Hinson MD> 02/07/[address] [place] [address] Ctr Work Phone: 1(745) 521-618411-25-2023 Progress note Author Miguel Hinson [facility] February 06, 2023 12:57pm Note Date/Time February 06, 2023 12:42pm [facility] [address] [place] [address] Hospitalist Progress Note Signed Patient: Tadeo Thomas MR#: [id number] : 1945 Acct:[id number] Age/Sex: 78 / M Adm Date: 3 Loc: Room: [address] [place] [address] Type: ADM IN Attending Dr: Miguel Hinson [...] otherwise unremarkable. And it was negative. 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 Digoxin level was negative. [...] <Electronically signed by Miguel Hinson MD> 02/06/23 1257 [facility] Work Phone: 1(357) 539-459111-24-2023 Progress note Author Jennifer Cruz [facility] February 05, 2023 12:39pm Note Date/Time February 05, 2023 12:39pm [facility] [address] [place] [address] Hospitalist Progress Note Signed Patient: Tadeo Thomas MR#: [id number] : 1945 Acct:[id number] Age/Sex: 78 / M Adm Date: 3 Loc: 3T Room: [address] [place] [address] Type: ADM IN Attending Dr: Jennifer Cruz [...] otherwise unremarkable. And it was negative. 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 Digoxin level was negative. [...] otherwise unremarkable. And it was negative. 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 Digoxin level was negative. [...] signed by Jennifer Cruz MD> 02/05/23 1239 [facility] Work Phone: 1(314) 219-836911-24-2023 Progress note Author Samra Garza [facility] February 05, 2023 12:16pm Note Date/Time February 05, 2023 12:16pm [facility] [address] [place] [address] Cardiology Progress Note Signed Patient: Tadeo Thomas MR#: [id number] : 1945 Acct:[id number] Age/Sex: 78 / M Adm Date: 3 Loc: Room: [address] [place] [address] Type: ADM IN Attending Dr: Jennifer Cruz [...] 02/05/231215 Signed By: <Electronically signed by MD Samra Garza> 02/05/23 [facility] Work Phone: 1(344) 130-172911-23-2023 Progress note Author Samra Garza [facility] February 04, 2023 11:52am Note Date/Time February 04, 2023 11:52am [facility] [address] [place] [address] Cardiology Progress Note Signed Patient: Tadeo Thomas MR#: [id number] : 1945 Acct:[id number] Age/Sex: 78 / M Adm Date: 11/22/2 3 Loc: 3T Room: [id number] Type: ADM IN Attending Dr: Jennifer Cruz [...] signed by MD Samra Garza> 02/04/23 1152 [facility] Work Phone: 1(835) 644-718711-23-2023 Progress note Author Jennifer Cruz [facility] February 04, 2023 9:54am Note Date/Time February 04, 2023 9:54am [facility] [address] [place], [place] [id number] Hospitalist Progress Note Signed Patient: Tadeo Thomas MR#: [id number] : 1945 Acct:[id number] Age/Sex: 78 / M Adm Date: 3 Loc: 3T Room: [address] [place] [address] Type: ADM IN Attending Dr: Jennifer Cruz [...] otherwise unremarkable. And it was negative. 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 Digoxin level was negative. [...] 1,000 mls @ 20 mls/hr 02/03/23 09:30 11/22/23 10:01 0.9% Sodium Chloride 1,000 Ml IV [...] otherwise unremarkable. And it was negative. 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 Digoxin level was negative. [...] signed by Jennifer Cruz MD> 02/04/23 0954 [facility] Work Phone: 1(212) 536-880411-22-2023 Progress note Author Jennifer Cruz [facility] February 03, 2023 10:49am Note Date/Time February 03, 2023 10:48am [facility] [address] [place] [address] Hospitalist Progress Note Signed Patient: Tadeo Thomas MR#: [id number] : 1945 Acct:[id number] Age/Sex: 78 / M Adm Date: 3 Loc: Room: 6H6482-6 Type: ADM INOo Attending Dr: Jennifer Cruz [...] otherwise unremarkable. And it was negative. 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 Digoxin level was negative. [...] otherwise unremarkable. And it was negative. 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 Digoxin level was negative. [...] signed by Jennifer Cruz MD> 02/03/23 1049 [facility] Work Phone: 1(323) 437-866111-22-2023 Consult note Author Samra Garza [facility] February 03, 2023 10:37am Note Date/Time February 03, 2023 10:14am [facility] [address] [place] [address] Cardiology Consult Note Signed Patient: Tadeo Thomas MR#: [id number] : 1945 Acct:[id number] Age/Sex: 78 / M Adm Date: 3 Loc: Room: [address] [place] [address] Type: ADM INOo Attending Dr: Jennifer Cruz [...] additional complaints, except as documented [facility] Medical History Dementia Diabetes HTN (hypertension) Pacemaker [...] x10E3/uL Lymph # (Auto) 3.3 (1.00-4.8) x10E3/uL [place] # (Auto) 0.4 (0.0-0.8) x10E3/uL Eos # [...] signed by MD Samra Garza> 02/03/23 1037 [facility] Work Phone: 1(147) 542-166211-21-2023 History and physical note Author Jennifer Cruz [facility] February 02, 2023 3:44pm Note Date/Time February 02, 2023 3:44pm [facility] [address] [place] [address] Hospitalist H&P Signed Patient: Tadeo Thomas MR#: [id number] : 1945 Acct:[id number] Age/Sex: 78 / M Adm Date: 3 Loc: Room: [address] [place] [address] Type: ADM INOo Attending Dr: Jennifer Cruz [...] otherwise unremarkable. And it was negative. 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 Digoxin level was negative. [...] noted below or in HPI [facility] Medical History (Updated 02/02/23 @ 15:40 by [...] % (Auto) 35.5 % (.) 02/02/23 11:35 [place] % (Auto) 4.8 % (.) 02/02/23 11:35 Eos % (Auto) 0.2 % (.) 02/02/23 11:35 Baso % (Auto) 0.3 % (.) 02/02/23 11:35 Nucleat RBC Rel Count 0.6 /100 WBC (0-0.5) H 02/02/23 11:35 Neut # (Auto) 5.4 x10E3/uL (1.8-7.7) 02/02/23 11:35 Lymph # (Auto) 3.3 x10E3/uL (1.00-4.8) 02/02/23 11:35 [place] # (Auto) 0.4 x10E3/uL (0.0-0.8) 02/02/23 11:35 [...] otherwise unremarkable. And it was negative. 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 Digoxin level was negative. [...] <Electronically signed by Jennifer Cruz MD> 02/02/23 1541 [facility] Work Phone: 1(141) 313-208210-26-2023 History of Present illness Narrative* Ketan Lucero [...] maintenance of sinus rhythm. [facility]: 1(741) 297-646610-26-2023 Instructions* Patient Instructions* Carmen Thomas LPN - [...] follow up per routine [facility] Work Phone: 1(894) 138-115707-06-2023 Progress note Author Charlie Varner [facility] September 17, 2022 3:55pm Note Date/Time September 17, 2022 3:53p m [facility] [address] [place] [address] Hospitalist Progress Note Signed Patient: Tadeo Thomas MR#: [id number] : 1945 Acct:[id number] Age/Sex: 77 / M Adm Date: 3 Loc: Room: [address] [place] [address] Type: ADM IN Attending Dr: Charlie Varner [...] <Electronically signed by Charlie Varner MD> 09/17/22 1559 [facility] Work Phone: 1(714) 616-611307-05-2023 Progress note Author Charlie Varner [facility] September 16, 2022 3:55pm Note Date/Time September 16, 2022 3:55p m [facility] [address] [place] [address] Hospitalist Progress Note Signed Patient: Tadeo Thomas MR#: [id number] : 1945 Acct:[id number] Age/Sex: 77 / M Adm Date: 3 Loc: Room: [address] [place] [address] Type: ADM IN Attending Dr: Charlie Varner [...] signed by Charlie Varner MD> 09/16/22 1555 [facility] Work Phone: 1(207) 224-525507-05-2023 Progress note Author La Loza [facility] September 16, 2022 3:07pm Note Date/Time September 16, 2022 3:07p m [facility] [address] [place] [address] Anesthesia Progress Note Signed Patient: Tadeo Thomas MR#: [id number] : 1945 Acct:[id number] Age/Sex: 77 / M Adm Date: 3 Loc: 3T Room: [address] [place] [address] Type: ADM IN Attending Dr: Charlie Varner MD Copies to: ~ Anesthesia Progress Note Narrative Narrative: Chart review completed. Pending Lexiscan Stress. Otherwise, Pt appears to be optimized for planned pacemaker placement tomorrow. Documented By: LA LOZA DO 09/16/22 1506 Signed By: <Electronically signed by LA LOZA DO> 09/16/22 1507 [facility] Work Phone: 1(648) 553-919707-05-2023 Progress note Author Tae Dietrich [facility] September 16, 2022 10:34am Note Date/Time September 16, 2022 10:34 am [facility] [address] [place], [place] [address] Cardiology Progress Note Signed Patient: Tadeo Thomas MR#: [id number] : 1945 Acct:[id number] Age/Sex: 77 / M Adm Date: 3 Loc: 3T Room: [address] [place] [address] Type: ADM IN Attending Dr: Charlie Varner [...] 20 Documented By: Tae Dietrich MD 09/16/22 103 Signed By: <Electronically signed by Tae Dietrich MD> 09/16/22 1034 [facility] Work Phone: 1(205) 406-134107-04-2023 Progress note Author Charlie Varner [facility] September 15, 2022 3:32pm Note Date/Time September 15, 2022 3:32p m [facility] [address] [place] [address] Hospitalist Progress Note Signed Patient: Tadeo Thomas MR#: [id number] : 1945 Acct:[id number] Age/Sex: 77 / M Adm Date: 3 Loc: Room: [address] [place] [address] Type: ADM IN Attending Dr: Charlie Varner [...] signed by Charlie Varner MD> 09/15/22 1532 [facility] Work Phone: 1(218) 385-354507-04-2023 Consult note Author Tae Dietrich [facility] September 15, 2022 12:07pm Note Date/Time September 15, 2022 12:04 pm [facility] [address] [place] [address] Cardiology Consult Note Signed Patient: Tadeo Thomas MR#: [id number] : 1945 Acct:[id number] Age/Sex: 77 / M Adm Date: 3 Loc: Room: [address] [place] [address] Type: ADM IN Attending Dr: Charlie Varner [...] Lymph # (Auto) 4.2 3.9 (1.00-4.8) x10E3/uL [place] # (Auto) 0.5 0.4 (0.0-0.8) x10E3/uL Eos [...] ml @ 200 mls/hr IV ONCE ONE Rx#:[id number] Sodium Chloride 0.9% 1,000 ml 500 / 500 500 ml @ 999 mls/hr IV .Q31M ONE Rx#:[id number] Oral 500 / 500 150 / 150 Other: # Voids 1 # Unmeasured Voids 2 # Bowel Movements 0 Weight 81.8 kg 81.7 kg Date of Last Bowel Movement 09/14/22 09/14/22 Patient Weight 09/15/22 23:59 Weight 81.7 kg Lab 09/14/22 17:22 PT 11.5 INR 1.0 APTT 31.4 Echocardiogram Signed Patient: Tadeo Thomas MR#: [id number] : 1945 Acct:[id number] Age/Sex: 77 / M ADM Date: 09/11/22 Loc: EL ?? ? Room:? Type:?REG CLI Attending Dr: Aracelis Pedroza MD Ordering Provider: Aracelis Pedroza MD Date of Service: 09/11/22/ ECH/ECH echo transthoracic: ABNORMAL EKG ? Copies to: Fior Saleem MD, [facility] Aracelis Pedroza MD~ BSA: 2.0 m2 ? [...] By: <Electronically signed by Tae Dietrich MD> 09/15/221206 [facility] Work Phone: 1(290) 505-347707-04-2023 History and physical note Author Charlie Varner [facility] September 14, 2022 10:07pm Note Date/Time September 14, 2022 8:31p m [facility] [address] [place] [address] Hospitalist H&P Signed Patient: Tadeo Thomas MR#: [id number] : 1945 Acct:[id number] Age/Sex: 77 / M Adm Date: 3 Loc: Room: [address] [place] [address] Type: ADM IN Attending Dr: Charlie Varner [...] noted below or in HPI [facility] Medical History (Updated 09/14/22 @ 22:02 by [...] 09/14/22 17:22 RDW 14.0 % (12.0-14.8) 09/14/22 17:22 Plt Count 228 x10E3/uL (150-450) 09/14/22 17:22 MPV 8.2 fl (6.6-10.1) 09/14/22 17:22 Neut % (Auto) 54.8 % (.) 09/14/22 17:22 Lymph % (Auto) 39.9 % (.) 09/14/22 17:22 [place] % (Auto) 4.5 % (.) 09/14/22 17:22 Eos % (Auto) 0.5 % (.) 09/14/22 17:22 Baso % (Auto) 0.3 % (.) 09/14/22 17:22 Nucleat RBC Rel Count 0.2 /100 WBC (0-0.5) 09/14/22 17:22 Neut # (Auto) 5.8 x10E3/uL (1.8-7.7) 09/14/22 17:22 Lymph # (Auto) 4.2 x10E3/uL (1.00-4.8) 09/14/22 17:22 [place] # (Auto) 0.5 x10E3/uL (0.0-0.8) 09/14/22 17:22 Eos # (Auto) 0.1 x10E3/uL (0.0-0.45) 09/14/22 17:22 Baso # (Auto) 0.0 x10E3/uL (0.0-0.2) 09/14/22 17: Monocyte Dist Width 17.48 % (0.00-20.00) 09/14/22 17:22 PT 11.5 Seconds (9.0-12.9) 09/14/22 17: INR 1.0 09/14/22 17: APTT 31.4 Seconds (25.1-36.5) 09/14/22 17:22 PHA Creatinine Clear 60.89 09/14/22 17:22 Sodium 139 mmol/L (136-145) 09/14/22 17:22 Potassium 4.1 mmol/L (3.5-5.1) 09/14/22 17: Chloride [...] <Electronically signed by Charlie Varner MD> 09/14/22 2207 [facility] Work Phone: 1(354) 289-613407-03-2023 History and physical note Author Charlie Varner [facility] September 14, 2022 10:07pm Note Date/Time September 14, 2022 8:31p m [facility] [address] [place] [address] Hospitalist H&P Signed Patient: Tadeo Thomas MR#: [id number] : 1945 Acct:[id number] Age/Sex: 77 / M Adm Date: 3 Loc: Room: [address] [place] [address] Type: ADM IN Attending Dr: Charlie Varner [...] noted below or in HPI [facility] Medical History (Updated 09/14/22 @ 22:02 by [...] 09/14/22 17:22 RDW 14.0 % (12.0-14.8) 09/14/22 17:22 Plt Count 228 x10E3/uL (150-450) 09/14/22 17:22 MPV 8.2 fl (6.6-10.1) 09/14/22 17:22 Neut % (Auto) 54.8 % (.) 09/14/22 17:22 Lymph % (Auto) 39.9 % (.) 09/14/22 17:22 [place] % (Auto) 4.5 % (.) 09/14/22 17:22 Eos % (Auto) 0.5 % (.) 09/14/22 17:22 Baso % (Auto) 0.3 % (.) 09/14/22 17:22 Nucleat RBC Rel Count 0.2 /100 WBC (0-0.5) 09/14/22 17:22 Neut # (Auto) 5.8 x10E3/uL (1.8-7.7) 09/14/22 17:22 Lymph # (Auto) 4.2 x10E3/uL (1.00-4.8) 09/14/22 17:22 [place] # (Auto) 0.5 x10E3/uL (0.0-0.8) 09/14/22 17:22 Eos # (Auto) 0.1 x10E3/uL (0.0-0.45) 09/14/22 17:22 Baso # (Auto) 0.0 x10E3/uL (0.0-0.2) 09/14/22 17:22 Monocyte Dist Width 17.48 % (0.00-20.00) 09/14/22 17:22 PT 11.5 Seconds (9.0-12.9) 09/14/22 17:22 INR 1.0 09/14/22 17:22 APTT 31.4 Seconds (25.1-36.5) 09/14/22 17:22 PHA [...] <Electronically signed by Charlie Varner MD> 09/14/22 2209 [facility] Work Phone: Consult note Author Tae Dietrich [facility] September 15, 2022 12:07pm Note Date/Time September 15, 2022 12:04 pm [facility] [address] [place] [address] Cardiology Consult Note Signed Patient: Tadeo Thomas MR#: [id number] : 1945 Acct:[id number] Age/Sex: 77 / M Adm Date: 3 Loc: 3T Room: [address] [place] [address] Type: ADM IN Attending Dr: Charlie Varner [...] Lymph # (Auto) 4.2 3.9 (1.00-4.8) x10E3/uL [place] # (Auto) 0.5 0.4 (0.0-0.8) x10E3/uL Eos [...] ml @ 200 mls/hr IV ONCE ONE Rx#:[id number] Sodium Chloride 0.9% 1,000 ml 500 / 500 500 ml @ 999 mls/hr IV .Q31M ONE Rx#:[id number] Oral 500 / 500 150 / 150 Other: # Voids 1 # Unmeasured Voids 2 # Bowel Movements 0 Weight 81.8 kg 81.7 kg Date of Last Bowel Movement 09/14/22 09/14/22 Patient Weight 09/15/22 23:59 Weight 81.7 kg Lab 09/14/22 17:22 PT 11.5 INR 1.0 APTT 31.4 Echocardiogram Signed Patient: Tadeo Thomas MR#: [id number] : 1945 Acct:[id number] Age/Sex: 77 / M ADM Date: 09/11/22 Loc: EL ?? ? Room:? Type:?REG CLI Attending Dr: Aracelis Pedroza MD Ordering Provider: Aracelis Pedroza MD Date of Service: 09/11/22/ ECH/ECH echo transthoracic: ABNORMAL EKG ? Copies to: Fior Saleem MD, [facility] Aracelis Pedroza MD~ BSA: 2.0 m2 ? [...] By: <Electronically signed by Tae Dietrich MD> 09/15/221206 [facility] Work Phone: Consult note Author Samra Garza [facility] February 03, 2023 10:37am Note Date/Time February 03, 2023 10:14am [facility] [address] [place] [address] Cardiology Consult Note Signed Patient: Tadeo Thomas MR#: [id number] : 1945 Acct:[id number] Age/Sex: 78 / M Adm Date: 3 Loc: Room: [address] [place] [address] Type: ADM INOo Attending Dr: Jennifer Cruz [...] additional complaints, except as documented [facility] Medical History Dementia Diabetes HTN (hypertension) Pacemaker [...] x10E3/uL Lymph # (Auto) 3.3 (1.00-4.8) x10E3/uL [place] # (Auto) 0.4 (0.0-0.8) x10E3/uL Eos # [...] <Electronically signed by MD Samra Garza> 02/03/[address] [place] [address] Ctr Work Phone: Evaluation note* Diagnosis Onset Date Resolution Status Bigeminy acute Near syncope acute Sinus arrhythmia acute Tachy-rosette syndrome acute Tachyarrhythmia acute [facility] Work Phone: Evaluation note* Diagnosis Anticoagulated- Primary Encounter for long-term (current) use of anticoagulants Sick sinus syndrome due to sinoatrial node dysfunction (CMS/HCC) Pacemaker Cardiac pacemaker in situ Mixed hyperlipidemia Hypertension, benign Essential hypertension, benign Paroxysmal atrial fibrillation (CMS/HCC) Atrial fibrillation documented in this encounter [facility] Work Phone: Evaluation note* Diagnosis Onset Date Resolution Status Acute hypotension acute Non-sustained ventricular tachycardia acute Sick sinus syndrome acute SVT (supraventricular tachycardia) acute [facility] Work Phone: Evaluation note* Diagnosis Onset Date Resolution Status Acute hypotension acute Diabetes type 2, controlled acute Hyperlipemia acute Non-sustained ventricular tachycardia acute Sick sinus syndrome acute SVT (supraventricular tachycardia) acute Tachy-rosette syndrome acute Tachyarrhythmia acute [facility] Work Phone: Evaluation note* Diagnosis Sick sinus syndrome due to sinoatrial node dysfunction (CMS/HCC)- Primary Atrial fibrillation, unspecified type (CMS/HCC) Paroxysmal atrial fibrillation (CMS/HCC) Atrial fibrillation Pacemaker Cardiac pacemaker in situ Mixed hyperlipidemia Hypertension, benign Essential hypertension, benign Anticoagulated Encounter for long-term (current) use of anticoagulants documented in this encounter [facility] Work Phone: History and physical note Author Jennifer Cruz [facility] February 02, 2023 3:44pm Note Date/Time February 02, 2023 3:44pm [facility] [address] [place] [address] Hospitalist H&P Signed Patient: Tadeo Thomas MR#: [id number] : 1945 Acct:[id number] Age/Sex: 78 / M Adm Date: 3 Loc: Room: [address] [place] [address] Type: ADM INOo Attending Dr: Jennifer Cruz [...] otherwise unremarkable. And it was negative. 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 Digoxin level was negative. [...] noted below or in HPI [facility] Medical History (Updated 02/02/23 @ 15:40 by [...] % (Auto) 35.5 % (.) 02/02/23 11:35 [place] % (Auto) 4.8 % (.) 02/02/23 11:35 Eos % (Auto) 0.2 % (.) 02/02/23 11:35 Baso % (Auto) 0.3 % (.) 02/02/23 11:35 Nucleat RBC Rel Count 0.6 /100 WBC (0-0.5) H 02/02/23 11:35 Neut # (Auto) 5.4 x10E3/uL (1.8-7.7) 02/02/23 11:35 Lymph # (Auto) 3.3 x10E3/uL (1.00-4.8) 02/02/23 11:35 [place] # (Auto) 0.4 x10E3/uL (0.0-0.8) 02/02/23 11:35 [...] otherwise unremarkable. And it was negative. 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 Digoxin level was negative. [...] signed by Jennifer Cruz MD> 02/02/23 1544 [facility] Work Phone: History of Present illness Narrative* [...] medication regimen. He denies medication side effects. [facility] DO Work Phone: History of [...] medication regimen. He denies medication side effects. -[facility] [employer] DO Work Phone: History of Present illness [...] medication regimen. He denies medication side effects. -[facility] DO Work Phone: Hospital Discharge instructions Additional [...] with nurse for incision check in the [facility] Office on [facility] on 09/25/2022 at 11:00am. 2. Chest x-ray to be done the same day as your device check at [facility] on 12/24/2022 . 3. Pacemaker/ICD clinic appointment at [facility] on 12/24/2022 at 9:00am. 4. Office visit with Dr. Lucero at [facility] in the [facility] [place] on [address] on 01/07/2023 at 10:50am. [][facility] Work Phone: Hospital Discharge instructions Additional Instructions SNF to manage: -PT/OT to eval and treat -Monitor VS per protocol -Fall precautions -Perform cardiovascular assessments -Care to be managed by SNF providers.[facility] Work Phone: Progress note Author Charlie Varner [facility] September 15, 2022 3:32pm Note Date/Time September 15, 2022 3:32p m [facility] [address] [place] [address] Hospitalist Progress Note Signed Patient: Tadeo Thomas MR#: [id number] : 1945 Acct:[id number] Age/Sex: 77 / M Adm Date: 3 Loc: Room: [address] [place] [address] Type: ADM IN Attending Dr: Charlie Varner [...] H 97 Room Air 09/15/22 12:00 09/15/22 12:09/15/22 12:09/15/22 12:09/15/22 12:09/15/22 12:00 Narrative: General: Awake, alert, oriented x3 [...] signed by Charlie Varner MD> 09/15/22 1532 [facility] Work Phone: Progress note Author Tae Dietrich [facility] September 16, 2022 10:34am Note Date/Time September 16, 2022 10:34 am [facility] [address] [place] [address] Cardiology Progress Note Signed Patient: Tadeo Thomas MR#: [id number] : 1945 Acct:[id number] Age/Sex: 77 / M Adm Date: 3 Loc: Room: [address] [place] [address] Type: ADM IN Attending Dr: Charlie Varner [...] signed by Tae Dietrich MD> 09/16/22 1034 [facility] Work Phone: Progress note Author La Loza [facility] September 16, 2022 3:07pm Note Date/Time September 16, 2022 3:07p m [facility] [address] [place] [address] Anesthesia Progress Note Signed Patient: Tadeo Thomas MR#: [id number] : 1945 Acct:[id number] Age/Sex: 77 / M Adm Date: 3 Loc: Room: [address] [place] [address] Type: ADM IN Attending Dr: Charlie Varner MD Copies to: ~ Anesthesia Progress Note Narrative Narrative: Chart review completed. Pending Lexiscan Stress. Otherwise, Pt appears to be optimized for planned pacemaker placement tomorrow. Documented By: LA LOZA DO 09/16/22 1506 Signed By: <Electronically signed by LA LOZA DO> 09/16/22 1507 [facility] Work Phone: Progress note Author Charlie Varner [facility] September 16, 2022 3:55pm Note Date/Time September 16, 2022 3:55p m [facility] [address] [place] [address] Hospitalist Progress Note Signed Patient: Tadeo Thomas MR#: [id number] : 1945 Acct:[id number] Age/Sex: 77 / M Adm Date: 3 Loc: Room: [address] [place] [address] Type: ADM IN Attending Dr: Charlie Varner [...] code Documented By: Charlie Varner MD 09/16/22 155 Signed By: <Electronically signed by Charlie Varner MD> 09/16/22 1555 [facility] Work Phone: Progress note Author Jennifer Cruz [facility] February 03, 2023 10:49am Note Date/Time February 03, 2023 10:48am [facility] [address] [place] [address] Hospitalist Progress Note Signed Patient: Tadeo Thomas MR#: [id number] : 1945 Acct:[id number] Age/Sex: 78 / M Adm Date: 3 Loc: Room: [address] [place] [address] Type: ADM INOo Attending Dr: Jennifer Cruz [...] otherwise unremarkable. And it was negative. 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 Digoxin level was negative. [...] otherwise unremarkable. And it was negative. 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 Digoxin level was negative. [...] signed by Jennifer Cruz MD> 02/03/23 1049 [facility] Work Phone: Reason for referral (narrative)* Consultation (Routine) - Authorized Specialty Diagnoses / Procedures Referred By Contac t Referred To Contact Cardiology Diagnoses Paroxysmal atrial fibrillation (CMS/HCC) Procedures Follow Up In Cardiology Ketan Lucero MD [address] [place] [address] 2, Markos [address] [place] [address] Ketan Lucero MD [address] [place] [address] [address], [address] [address] Referral ID Status Reason Start Date Expiration Date V isits Requested Visits Authorized [id number] Authorized 01/07/2023 01/07/2024 1 1 [facility] Work Phone: Reason for referral (narrative)* Consultation (Routine) - Authorized Specialty Diagnoses / Procedures Referred By Contac t Referred To Contact Cardiology Diagnoses Atrial fibrillation, unspecified type (CMS/HCC) Procedures Follow Up In Cardiology Ketan Lucero MD [address] [place] [address] 2, [address] [address] Ketan Lucero MD [address] [place] [address] 2, [address] [address] Referral ID Status Reason Start Date Expiration Date V isits Requested Visits Authorized [id number] Authorized 03/01/2023 02/29/2024 1 1 * Cardiovascular (Routine) - Pending Review Specialty Diagnoses / Procedures Referred By Contac t Referred To Contact Diagnoses Atrial fibrillation, unspecified type (CMS/HCC) Procedures ECG 12 Lead Ketan Lucero MD [address] [facility] 2, [address] [address] Referral ID Status Reason Start Date Expiration Date V isits Requested Visits Authorized [id number] Pending Review 03/01/2023 02/29/2024 1 1 [facility] Work Phone: Assessments No Assessments Information Available Summary Purpose Family History No Family History Records FoundUnknown Family Member Name Dates Details Family history [...] Unknown brother Diabetes mellitus Unknown Advance Directives No Advanced Directives Records Found Advance Directive Response Recorded Date/ Time Advance [...] done by Dr. Ketan Lucero MD at [facility] on 09/17/2022. Dr. Samra Garza MD in [...] This is initial in clinic follow-up at [facility]. * Throughout the summer patient reports dizziness and shortness of breath and frequent falls. PCP completed a Holter monitor and echocardiogram. The Holter monitor showed 2-1 atrial flutter and patientwas instructed to present to local hospital. * September 2022 at [facility] seen in consult Dr. Dietrich d/t 2:1 atrial flutter and Mobitz II. * Outpatient echo: EF 55, LVH mild * Inpatient MPI: no ischemia, fixed inferior defect 18% artifact vs. PA * September 17, 2022 impant Pearson [id number] [...] * Cardiovascular history: * September 2022 at [facility] seen in consult Dr. Dietrich d/t 2:1 atrial flutter and Mobitz II. * Inpatient MPI: no ischemia, fixed inferior defect 18% artifact vs. PA * September 17, 2022 implant Pearson [id number] [...] section and content) DATE CREATED AUTHOR 04/22/2021 [facility] [place] [facility] dical Specialist DATE CREATED AUTHOR AUTHOR'S ORGANIZ ATION 05/12/2021 [facility] DATE CREATED AUTHOR AUTHOR'S ORGANIZ ATION 11/23/2022 [facility] DATE CREATED AUTHOR AUTHOR'S ORGANIZ ATION 11/27/2022 [facility] ical [facility] DATE CREATED AUTHOR AUTHOR'S ORGANIZ ATION 11/27/2022 [facility] DATE CREATED AUTHOR AUTHOR'S ORGANIZ ATION 12/20/2022 [facility] DATE CREATED AUTHOR AUTHOR'S ORGANIZ ATION 02/13/2023 [facility] DATE CREATED AUTHOR AUTHOR'S ORGANIZ ATION 03/03/2023 [facility] DATE CREATED AUTHOR AUTHOR'S ORGANIZ ATION 03/22/2023 [facility] [place] [facility] dical Specialists EPIC Care Teams (unrecognized sec tion and content) Team [...] Barragan MD Other Provider Active Adelaida Carreon [facility] Other Provider Active Izabella Henderson MD Other [...] Barragan MD Other Provider Active Adelaida Carreon , [facility] Other Provider Active Izabella Henderson MD Other Provider Active Project Manager Process Development Relationship Specialty Start Date End Date Aracelis Pedroza MD [address] [place] [address] PCP - General 09/25/22 Team Status: Inactive Member Role Status Dates Aracelis Pedroza MD Primary Care Provider Active Ketan Lucero MD Attending Provider Active Team Status: Active Member Role Status Dates Aracelis Pedroza MD Primary Care Provider Active Nicolas Zavala , DO Emergency Provider Active Jennifer Cruz MD Admit Provider, Attending Provider A ctive Team Status: Inactive Member Role Status Dates Aracelis Pedroza MD Primary Care Provider Active Nicolas Zavala , DO Emergency Provider Active Jennifer Cruz MD Admit Provider Active Miguel Hinson MD Attending Provider Active Project Manager Process Development Relationship Specialty Start Date End Date Aracelis Pedroza MD [address] [place] [address] PCP - General 09/25/22 Goals (unrecognized section and content) Goals may be documented in a n alternate sectionGoals may be documented in an alternate section Reason for Visit (unrecogniz ed section and content) Reason Comments Follow-up 15 week PCM Reason Comments Follow-up [facility] [place] 02-05 Specialty Diagnoses / Procedures Referred By Contac t Referred To Contact Cardiology Diagnoses Atrial fibrillation, unspecified type (CMS/HCC) Procedures Follow Up In Cardiology Samra Garza MD [address] [facility] [address] [place] [address] Ketan Lucero MD [address] [facility] [address] [place] [address] Referral ID Status Reason Start Date Expiration Date V isits Requested Visits Authorized [id number] Authorized 02/05/2023 02/05/2024 1 1 FOR RECORDS [...] BE BASED ON THE PRIMARY CLINICAL RECORDS. [facility]. provides no warranty or guarantee of the accuracy or completeness of information in this document.
[2023-04-19 21:16] LABS: Glucometer 90 mg/dL (74-106)
--- NOTE | 2023-04-19 21:20 | CT_ITS ---
The [address] [address] Patient Name: TADEO THOMAS MRN: [id number] date: 1945 Sex: M Assigned Patient Location: ER Current Patient Location: ER Accession/Order Number: [id number] Exam Date: 04/19/2023 21:50 Report Date: 04/19/2023 22:42 At the request of: SONG RIDLEY Procedure: CT cervical spine wo con CT CERVICAL SPINE WITHOUT : 04/19/2023 9:50 PM EST HISTORY: Fall with neck pain. TECHNIQUE: Thin section axial CT images were obtained from the foramen magnum to the T1 vertebral body. Thin section sagittal and coronal reconstructed images were performed from the axial data set. In accordance with CT protocols and the ALARA principle, radiation dose reduction techniques were utilized for this examination. All images were reviewed and interpreted. CONTRAST: None. COMPARISON: None. FINDINGS: There is no fracture or vertebral body height loss. There is no destructive osseous lesion. Normal anatomic alignment is maintained. There is no spondylolisthesis. There is some degenerative narrowing between the anterior C1 arch and the odontoid. Bilateral facet joints are largely preserved as are the uncovertebral joints throughout the cervical and upper thoracic spine. Minor chronic ossification along the anterior margin of several lower discs including C5-6 and C6-7 and C7-T1 T1-2. Overall disc heights are maintained. No appreciable central canal or neural foraminal narrowing. Lung apices are without evidence of pneumothorax. 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 There is extensive calcification of bilateral carotid bulbs. Mild diffuse osseous demineralization concordant with age. The paraspinal soft tissues are unremarkable. There is no prevertebral soft tissue swelling. CT/CT cervical spine wo con IMPRESSION: No fracture or malalignment. Electronically authenticated by: CHERRIE NGUYỄN Date: 04/19/2023 22:42
--- NOTE | 2023-04-19 21:21 | PC.NURSE ---
Pt brought in by squad after falling three times today. Squad states around family noticed slurred speech. glucose upon squad arrival was 58, 1mg im glucagon given and glucose up to 90 upon arrival to ED. Pt taken straight to CT scanner. Pt has no complaints of pain at this time and does not remember falling. Pt alert to self, and place, unsure of the month or year. Slurred speech has resolved upon arrival.
--- NOTE | 2023-04-19 21:21 | ED.NEUROSD1 ---
HPI - Neuro Symptoms/Deficit General Chief Complaint: Neuro Symptoms/Deficit Stated Complaint: FALL Time Seen by Provider: 04/19/23 21:10 Source: patient and other Source comment: EMS Mode of arrival: ambulance Limitations: no limitations History of Present Illness HPI Narrative: patient presents via Squad. Patient states he was sitting on the commode and loss his balance. He fell over into the tub and was not able to get out. Squad Described slurred speech and RBS of 58. Squad was not able to establish an IV and gave IM Glucagon. Patient arrives to the ER with clear speech. No extremity weakness or numbness. Believes he did hit his head . no LOC. He is on Plavix. he is NIDDM and takes Metformin, glucotrol and Actos. Last known normal 8:15p Related Data Home Medications Medication Instructions Recorded Confirmed alogliptin 25 mg tablet 25 mg PO DAILY 02/12/23 04/19/23 apixaban 5 mg tablet (Eliquis) 5 mg PO BID 02/12/23 04/19/23 flecainide 50 mg tablet 50 mg PO Q12H 02/12/23 04/19/23 glipizide 10 mg tablet 10 mg PO BID 02/12/23 04/19/23 metformin 1,000 mg tablet 1,000 mg PO DAILY 02/12/23 04/19/23 pioglitazone 30 mg tablet 30 mg PO DAILY 02/12/23 04/19/23 pravastatin 80 mg tablet 80 mg PO DAILY 02/12/23 04/19/23 aspirin 81 mg capsule 81 mg PO DAILY 04/19/23 04/19/23 losartan 25 mg tablet (Cozaar) 25 mg PO DAILY 04/19/23 04/19/23 Allergies Allergy/AdvReac Type Severity Reaction Status Date / Time No Known Drug Allergies Allergy Verified 04/19/23 21:18 Review of Systems ROS Status of ROS 10 or more systems reviewed and unremarkable except as noted in history and below [facility] Medical History (Updated 04/20/23 @ 00:53 by Dusty Stroud MD) Hyperlipemia ?E78.5 - Hyperlipidemia, unspecified (ICD-10) Diabetes ?E11.9 - Type 2 diabetes mellitus without complications (ICD-10) Hypotension ?I95.9 - Hypotension, unspecified (ICD-10) Dementia ?F03.90 - Unspecified dementia, unspecified severity, without behavioral disturbance, psychotic disturbance, mood disturbance, and anxiety (ICD-10) Pacemaker ?Z95.0 - Presence of cardiac pacemaker (ICD-10) Atrial flutter ?I48.92 - Unspecified atrial flutter (ICD-10) Social History Smoking status: Former smoker Exam Constitutional Vital Signs, click to edit/add: Last Vital Signs Pulse 89 04/20/23 00:50 Resp 26 H 04/20/23 00:50 BP 112/80 04/19/23 23:30 Pulse Ox 97 04/20/23 00:50 O2 Del Method Room Air 04/19/23 21:19 Common normals: no apparent distress, average body habitus, oriented x3, no limitations, healthy appearing, alert and well nourished HENVA Common normals: normocephalic and head/scalp atraumatic Eye Common normals: EOMs intact bilaterally and conjunctivae normal Respiratory Common normals: normal respiratory effort, no retractions, no use of accessory muscles and clear to auscultation bilaterally Cardio Common normals: regular rate, regular rhythm, S1 normal heart sound and S2 normal heart sound GI Common normals: Normal to inspection, nondistended, normoactive bowel sounds present, soft to palpation and non-tender Extremity Common normals: normal to inspection and full ROM Neuro Common normals: oriented x3, CN's II-XII intact bilaterally, moves all extremities, no focal motor deficits and no sensory deficits noted Psych Appearance: grossly normal Course Vital Signs Vital signs: Vital Signs Pulse Rate 53 L 04/19/23 21:11 Respiratory Rate 18 04/19/23 21:11 Blood Pressure 141/61 04/19/23 21:11 Pulse Oximetry 94 L 04/19/23 21:11 Oxygen Delivery Method Room Air 04/19/23 21:11 Pulse Rate 89 04/20/23 00:50 Respiratory Rate 26 H 04/20/23 00:50 Blood Pressure 112/80 04/19/23 23:30 Pulse Oximetry 97 04/20/23 00:50 Oxygen Delivery Method Room Air 04/19/23 21:19 MDM - Neuro Symptoms/Deficit MDM Narrative Medical decision making narrative: patient has been falling for several months now. his PCP has him attending PT to see if this may help. His states that he is suppose to use a walker but he will go without and fall. Tonight he fell off the commode into the tub and was not able to get up. When family help arrived they describe his speech as slurred. His states this is how he sounded when he was still bent over into the tub. Once they got him upright his speech was normal. Found ot have RBS 58 at home and given IM glucagon as squad was not able to establish an IV. He arrives here with clear speech and no focal weakness. CTs brain and C-spine without acute findings. Labs demonstrate evidence of dehydration. His BS is monitored and has slowly decreased. it is now down to 49-51 per POC. Discussed with the hospitalist and will plan obs admission and start D5NS Lab Data Labs: Lab Results 04/19/23 04/19/23 04/19/23 Range/Units 21:15 21:17 22:09 WBC 14.3 H (4.0-11.0) 10^3/uL RBC 3.13 L (4.70-6.10) 10^6/uL Hgb 10.5 L (14.0-18.0) g/dL Hct 31.4 L (42.0-54.0) % MCV 100.3 H (80.0-94.0) fL MCH 33.5 (25.9-34.0) pg MCHC 33.4 (29.9-35.2) g/dL RDW 15.9 H (11.0-15.0) % Plt Count 210 (150-450) 10^3/uL MPV 10.2 (9.5-13.5) fL Neut % (Auto) 72.5 (43.0-75.0) % Lymph % (Auto) 20.0 L (20.5-60.0) % [place] % (Auto) 6.3 (1.7-12.0) % Eos % (Auto) 0.7 L (0.9-7.0) % Baso % (Auto) 0.2 (0.2-2.0) % Neut # (Auto) 10.3 H (1.4-6.5) 10^3/uL Lymph # (Auto) 2.9 (1.2-3.8) 10^3/uL [place] # (Auto) 0.9 H (0.3-0.8) 10^3/uL Eos # (Auto) 0.1 (0.0-0.7) 10^3/uL Baso # (Auto) 0.0 (0.0-0.1) 10^3/uL Abs Immat Gran (auto) 0.04 H (0.00-0.03) 10^3/uL Imm/Tot Granulo (auto) 0.3 (0.0-0.5) % Sodium 139 (136-145) mmol/L Potassium 3.6 (3.5-5.1) mmol/L Chloride 101 (98-107) mmol/L Carbon Dioxide 28.5 (21.0-32.0) mmol/L Anion Gap 13.1 BUN 38.0 H (7.0-18.0) mg/dL Creatinine 1.27 (0.70-1.30) mg/dL Est GFR ( Amer) >60 (>=60) Est GFR (Non-Af Amer) 55 L (>=60) BUN/Creatinine Ratio 29.9 Glucose 87 (74-106) mg/dL Calcium 9.0 (8.5-10.1) mg/dL Troponin I High Sens 10.5 (4.0-76.1) pg/mL Urine Color (YELLOW) Urine Clarity (CLEAR) Urine pH (5.0-9.0) Ur Specific [place] (1.005-1.025) Urine Protein (NEG/TRACE) mg/dL Urine Glucose (UA) (NEGATIVE) mg/dL Urine Ketones (NEGATIVE) mg/dL Urine Occult Blood (NEGATIVE) Urine Nitrite (NEGATIVE) Urine Bilirubin (NEGATIVE) Urine Urobilinogen (0.2-1.0) EU/dL Ur Leukocyte Esterase (NEGATIVE) POC Glucose 90 128 H (74-106) mg/dL 04/19/23 04/19/23 04/20/23 Range/Units 23:24 23:43 00:47 WBC (4.0-11.0) 10^3/uL RBC (4.70-6.10) 10^6/uL Hgb (14.0-18.0) g/dL Hct (42.0-54.0) % MCV (80.0-94.0) fL MCH (25.9-34.0) pg MCHC (29.9-35.2) g/dL RDW (11.0-15.0) % Plt Count (150-450) 10^3/uL MPV (9.5-13.5) fL Neut % (Auto) (43.0-75.0) % Lymph % (Auto) (20.5-60.0) % [place] % (Auto) (1.7-12.0) % Eos % (Auto) (0.9-7.0) % Baso % (Auto) (0.2-2.0) % Neut # (Auto) (1.4-6.5) 10^3/uL Lymph # (Auto) (1.2-3.8) 10^3/uL [place] # (Auto) (0.3-0.8) 10^3/uL Eos # (Auto) (0.0-0.7) 10^3/uL Baso # (Auto) (0.0-0.1) 10^3/uL Abs Immat Gran (auto) (0.00-0.03) 10^3/uL Imm/Tot Granulo (auto) (0.0-0.5) % Sodium (136-145) mmol/L Potassium (3.5-5.1) mmol/L Chloride (98-107) mmol/L Carbon Dioxide (21.0-32.0) mmol/L Anion Gap BUN (7.0-18.0) mg/dL Creatinine (0.70-1.30) mg/dL Est GFR ( Amer) (>=60) Est GFR (Non-Af Amer) (>=60) BUN/Creatinine Ratio Glucose (74-106) mg/dL Calcium (8.5-10.1) mg/dL Troponin I High Sens 14.4 (4.0-76.1) pg/mL Urine Color Yellow (YELLOW) Urine Clarity Clear (CLEAR) Urine pH 5.5 (5.0-9.0) Ur Specific [place] >=1.030 A (1.005-1.025) Urine Protein Negative (NEG/TRACE) mg/dL Urine Glucose (UA) Negative (NEGATIVE) mg/dL Urine Ketones Negative (NEGATIVE) mg/dL Urine Occult Blood Negative (NEGATIVE) Urine Nitrite Negative (NEGATIVE) Urine Bilirubin Negative (NEGATIVE) Urine Urobilinogen 1.0 (0.2-1.0) EU/dL Ur Leukocyte Esterase Negative (NEGATIVE) POC Glucose 106 49 L* (74-106) mg/dL 04/20/23 Range/Units 00:51 WBC (4.0-11.0) 10^3/uL RBC (4.70-6.10) 10^6/uL Hgb (14.0-18.0) g/dL Hct (42.0-54.0) % MCV (80.0-94.0) fL MCH (25.9-34.0) pg MCHC (29.9-35.2) g/dL RDW (11.0-15.0) % Plt Count (150-450) 10^3/uL MPV (9.5-13.5) fL Neut % (Auto) (43.0-75.0) % Lymph % (Auto) (20.5-60.0) % [place] % (Auto) (1.7-12.0) % Eos % (Auto) (0.9-7.0) % Baso % (Auto) (0.2-2.0) % Neut # (Auto) (1.4-6.5) 10^3/uL Lymph # (Auto) (1.2-3.8) 10^3/uL [place] # (Auto) (0.3-0.8) 10^3/uL Eos # (Auto) (0.0-0.7) 10^3/uL Baso # (Auto) (0.0-0.1) 10^3/uL Abs Immat Gran (auto) (0.00-0.03) 10^3/uL Imm/Tot Granulo (auto) (0.0-0.5) % Sodium (136-145) mmol/L Potassium (3.5-5.1) mmol/L Chloride (98-107) mmol/L Carbon Dioxide (21.0-32.0) mmol/L Anion Gap BUN (7.0-18.0) mg/dL Creatinine (0.70-1.30) mg/dL Est GFR ( Amer) (>=60) Est GFR (Non-Af Amer) (>=60) BUN/Creatinine Ratio Glucose (74-106) mg/dL Calcium (8.5-10.1) mg/dL Troponin I High Sens (4.0-76.1) pg/mL Urine Color (YELLOW) Urine Clarity (CLEAR) Urine pH (5.0-9.0) Ur Specific [place] (1.005-1.025) Urine Protein (NEG/TRACE) mg/dL Urine Glucose (UA) (NEGATIVE) mg/dL Urine Ketones (NEGATIVE) mg/dL Urine Occult Blood (NEGATIVE) Urine Nitrite (NEGATIVE) Urine Bilirubin (NEGATIVE) Urine Urobilinogen (0.2-1.0) EU/dL Ur Leukocyte Esterase (NEGATIVE) POC Glucose 53 L (74-106) mg/dL Discharge Plan Discharge Chief Complaint: Neuro Symptoms/Deficit Clinical Impression: Hypoglycemia Prescriptions / Home Meds: No Action aspirin 81 mg capsule 81 mg PO DAILY losartan [Cozaar] 25 mg tablet 25 mg PO DAILY metformin 1,000 mg tablet 1,000 mg PO DAILY pioglitazone 30 mg tablet 30 mg PO DAILY Eliquis 5 mg tablet 5 mg PO BID alogliptin 25 mg tablet 25 mg PO DAILY flecainide 50 mg tablet 50 mg PO Q12H glipizide 10 mg tablet 10 mg PO BID pravastatin 80 mg tablet 80 mg PO DAILY Referrals: ARACELIS PEDROZA [Primary Care Provider] - 1 week
[2023-04-19 21:24] LABS: Basophils Percent Auto 0.2 % (0.2-2.0); Eosinophils Absolute Auto 0.1 10^3/uL (0.0-0.7); Eosinophils Percent Auto 0.7 % (0.9-7.0); Hematocrit 31.4 % (42.0-54.0); Hemoglobin 10.5 g/dL (14.0-18.0); Immature Granulocytes Abs Auto 0.04 10^3/uL (0.00-0.03); Immature Granulocytes Pct Auto 0.3 % (0.0-0.5); Lymphocytes Absolute Auto 2.9 10^3/uL (1.2-3.8); Mean Corpuscular HGB Conc 33.4 g/dL (29.9-35.2); Mean Corpuscular Hemoglobin 33.5 pg (25.9-34.0); Mean Corpuscular Volume 100.3 fL (80.0-94.0); Mean Platelet Volume 10.2 fL (9.5-13.5); Monocytes Absolute Auto 0.9 10^3/uL (0.3-0.8); Monocytes Percent Auto 6.3 % (1.7-12.0); Neutrophils Absolute Auto 10.3 10^3/uL (1.4-6.5); Neutrophils Percent Auto 72.5 % (43.0-75.0); Platelet Count 210 10^3/uL (150-450); Red Blood Count 3.13 10^6/uL (4.70-6.10); Red Cell Distribution Width 15.9 % (11.0-15.0); White Blood Count 14.3 10^3/uL (4.0-11.0)
[2023-04-19 21:43] LABS: Anion Gap 13.1; BUN Creatinine Ratio 29.9; Carbon Dioxide 28.5 mmol/L (21.0-32.0); Chloride 101 mmol/L (98-107); Estimated GFR (African America >60 (>=60); Estimated GFR (Non-African Ame 55 (>=60); Glucose 87 mg/dL (74-106); Potassium 3.6 mmol/L (3.5-5.1); Sodium 139 mmol/L (136-145); Troponin I High Sensitivity 10.5 pg/mL (4.0-76.1)
--- NOTE | 2023-04-19 22:05 | ECG_ITS ---
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
--- NOTE | 2023-04-19 22:06 | ECG_ITS ---
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
[2023-04-19 22:11] LABS: Glucometer 128 mg/dL (74-106)
[2023-04-19 23:26] LABS: Glucometer 106 mg/dL (74-106)
[2023-04-19 23:47] LABS: Troponin I High Sensitivity 14.4 pg/mL (4.0-76.1)
--- NOTE | 2023-04-19 23:48 | PC.NURSE ---
After removing C-collar, noted small scrape behind pts left ear. pt states that is has been there for months and he has picked at it. Cleaned with Hibiclens and left open to air.
[2023-04-19 23:49] LABS: Bilirubin Urine NEGATIVE (NEGATIVE); Blood Urine NEGATIVE (NEGATIVE); Clarity Urine CLEAR (CLEAR); Color Urine YELLOW (YELLOW); Glucose Urine UA NEGATIVE (NEGATIVE); Ketones Urine NEGATIVE (NEGATIVE); Leukocyte Esterase Urine NEGATIVE (NEGATIVE); Nitrite Urine NEGATIVE (NEGATIVE); Protein Urine NEGATIVE (NEG/TRACE); Specific Gravity Urine >=1.030 (1.005-1.025); pH Urine 5.5 (5.0-9.0)
[2023-04-19 23:53] LABS: Urine Microscopic Indicated NO
[2023-04-20] VITALS (29 sets, daily range): BP systolic 103–126; BP diastolic 50–77; PULSE 72–98; RESP 15–29; TEMP 36.6–36.7; O2SAT 90–99; BMI 25.1
[2023-04-20 00:50] LABS: Glucometer 49 mg/dL (74-106)
[2023-04-20 00:53] LABS: Glucometer 53 mg/dL (74-106)
[2023-04-20 01:18] LABS: Glucometer 67 mg/dL (74-106)
[2023-04-20] MEDS: DEXTROSE 5%-0.9% NACL 1,000 ML 1,000 ML 100 ML IV ×2 (01:18→11:20)
--- OUTSIDE RECORDS SUMMARY | 2023-04-20 01:50 | XMS_ITS | CCD ---
Author Name Unknown Address [address] [place] [address] Organization [facility] Care Team Providers Care Blender Snuff Name Role Phone MD Aracelis Pedroza Primary Care Provider MD Aracelis Pedroza Attending Provider [phone] DO Uriah Wang Emergency Provider MD [...] Provider MD Nikolay Barragan Other Provider Velma [facility] Adelaida Goodson Other Provider [phone] MD [...] Unavailable Aracelis Pedroza MD Primary Care Provider [phone] MD Aracelis Pedroza Primary Care Provider MD Ketan Lucero Attending Provider DO Nicolas Zavala Emergency Provider MD Jennifer Morris Admit Provider MD Jennifer Cruz Attending Provider [phone] DO Nicolas Zavala Emergency Provider MD Jennifer Morris Admit Provider MD Miguel Hinson Attending Provider [phone] Miguel Hinson Attending Unavailable Shelly Gray Consulting Unavailable [facility] Primary Care Unavailable Alahmjaneth, Alaa Admitting Unavailable [...] Attending Unavailable Ketan Lucero Attending Unavail able [facility] Ktean Lucero Admitting Unavail able Ketan Lucero Attending Unavail able [facility] Aracelis Primary Care Unavailable Ketan Lucero Admitting Unavail able Telly, Charlie Admitting Unavailable Telly, Charlie Attending Unavailable Shelly Gray Consulting Unavailable [facility] Primary Care Unavailable Farshad Varela Consulting Unavailable Fior Saleem Consulting Unavailable Ketan Lucero Consulting Unavail able Samra Garza Consulting Unavailable Kelvin Gil Consulting Unavailab Olga Herrera Consulting Unavailable Cheryl Das Consulting Unavailable Nabeel Ojeda Consulting Unavailab Nikolay Nuñez Consulting Unavailable Adelaida Carreon Consulting Unavailable Izaeblla Henderson Consulting Unavailable KETAN LUCERO Attending Unavailable [...] 01-07-2023 Episodic Other 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 [facility] Work Phone: Alanine aminotransferase [En zymatic activity/volume] in Serum or PlasmaOrdered By: Miguel Murdockr on 02-07-2023 ALT [Catalytic activity/Vol] 11 U/L 7-52 [facility] Albumin [Mass/volume] in Ser um or Plasma by Bromocresol green (BCG) dye binding methoOrdered By: Miguel Stevensomar on 02-07-2023 Albumin BCG dye [Mass/Vol] 3.7 g/dL 3.5-5.7 [facility] Alkaline phosphatase [Enzyma tic activity/volume] in Serum or PlasmaOrdered By: Obkatherine Stevensomar on 02-07-2023 ALP [Catalytic activity/Vol] 74 U/L 34-104 [facility] Aspartate aminotransferase [ Enzymatic activity/volume] in Serum or PlasmaOrdered By: Objacquidah Rodneyomar on 02-07-2023 AST [Catalytic activity/Vol] 13 U/L 13-39 [facility] Basophils Auto (Bld) [#/Vol] Ordered By: Objacquidajustino Stevensomar on 02-07-2023 Basophils (Bld) [#/Vol] 0.0 10*3/uL 0.0-0.2 [facility] Basophils/100 WBC Auto (Bld) Ordered By: Miguel Murdockr on 02-07-2023 Basophils/100 WBC (Bld) 0.2 % . [facility] Bilirubin.total [Mass/volume ] in Serum or PlasmaOrdered By: Objacquidajustino Daromar on 02-07-2023 Bilirubin [Mass/Vol] 0.4 mg/dL 0.3-1.0 [facility] Calcium [Mass/volume] in Ser um or PlasmaOrdered By: Obaydah Daromar on 02-07-2023 Calcium [Mass/Vol] 8.9 mg/dL 8.6-10.3 [facility] Carbon dioxide, total [Moles /volume] in Serum or PlasmaOrdered By: Objacquidah Daromar on 02-07-2023 CO2 [Moles/Vol] 28.3 mmol/L 21.0-31.0 [facility] Chloride [Moles/volume] in S estela or PlasmaOrdered By: Obaydah Daromar on 02-07-2023 Chloride [Moles/Vol] 102 mmol/L 98-107 [facility] Complete Blood Count Auto Di ffon 02-07-2023 Basophils (Bld) [#/Vol] 0.0 10*3/uL Normal 0.0-0.2 [facility] Comment on above: Result Comment: PERF ORMED BY: [facility] [address] [place] [address] PATHOLOGIST CCU NURSE KASSANDRA STACK M.D. Performed By: #### C BC, CMP ####[place] [id number] [facility] Basophils/100 WBC (Bld) 0.2 % Normal . [facility] Comment on above: Performed By: #### C BC, CMP ####[facility] [place] [address] [place] Eosinophils (Bld) [#/Vol] 0.1 10*3/uL Normal 0.0-0.45 [facility] Comment on above: Performed By: #### C BC, CMP ####[place] [address] [place] [id number] [facility] Eosinophils/100 WBC (Bld) 0.8 % Normal . [facility] Comment on above: Performed By: #### C BC, CMP ####[address] [address] [facility] Erythrocyte distribution width (RBC) [Ratio] 15.0 % High 12.0-14.8 [facility] Comment on above: Performed By: #### C BC, CMP ####[address] [address] [facility] Hematocrit (Bld) [Volume fraction] 35.2 % Low 38.8-50.0 [facility] Comment on above: Performed By: #### C ERICA, CMP ####[address] [address] [facility] Hemoglobin (Bld) [Mass/Vol] 11.8 g/dL Low 13.0-17.0 [facility] Comment on above: Performed By: #### C ERICA, CMP ####[place] [id number] [facility] Lymphocytes (Bld) [#/Vol] 5.6 10*3/uL High 1.00-4.8 [facility] Comment on above: Performed By: #### C ERICA, CMP ####[place] [id number] [facility] Lymphocytes/100 WBC (Bld) 48.1 % Normal . [facility] Comment on above: Performed By: #### C ERICA, CMP ####[address] [address] [facility] MCH (RBC) [Entitic mass] 33.0 pg Normal 27.5-35.2 [facility] Comment on above: Performed By: #### C ERICA, CMP ####[address] [address] [facility] MCV (RBC) [Entitic vol] 98.4 fL Normal 83.5-101 [facility] Comment on above: Performed By: #### C BC, CMP ####[place] [id number] [facility] Mean Corpuscular HGB Conc 33.5 g/dL Normal 32.5-35.6 [facility] Comment on above: Performed By: #### C ERICA, CMP ####[place] [address] [place] [address] [facility] Monocytes (Bld) [#/Vol] 0.8 10*3/uL Normal 0.0-0.8 [facility] Comment on above: Performed By: #### C BC, CMP ####[place] [address] [place] [address] [facility] Monocytes/100 WBC (Bld) 6.7 % Normal . [facility] Comment on above: Performed By: #### C ERICA, CMP ####[address] [address] [facility] Neutrophils (Bld) [#/Vol] 5.2 10*3/uL Normal 1.8-7.7 [facility] Comment on above: Performed By: #### C ERICA, CMP ####[address] [address] [facility] Neutrophils/100 WBC (Bld) 44.2 % Normal . [facility] Comment on above: Performed By: #### C ERICA, CMP ####[address] [address] [facility] NRBC% 0.2 /100{WBC} Normal 0-0.5 [facility] Comment on above: Performed By: #### C ERICA, CMP ####[place] [address] [place] [address] [facility] Platelet mean volume (Bld) [Entitic vol] 7.8 fL Normal 6.6-10.1 [facility] Comment on above: Performed By: #### C ERICA, CMP ####[place] [address] [place] [address] [place] Platelets (Bld) [#/Vol] 248 10*3/uL Normal 150-450 [facility] Comment on above: Performed By: #### C BC, CMP ####[place] [address] [place] [address] [facility] RBC (Bld) [#/Vol] 3.58 10*6/uL Low 3.90-5.60 [facility] Comment on above: Performed By: #### C BC, CMP ####[place] [address] [place] [address] [facility] WBC (Bld) [#/Vol] 11.7 10*3/uL High 4.1-10.5 [facility] Comment on above: Performed By: #### C BC, CMP ####[address] [address] [facility] Comprehensive Metabolic Pane christian 02-07-2023 Albumin [Mass/Vol] 3.7 g/dL Normal 3.5-5.7 [facility] Comment on above: Performed By: #### C ERICA, CMP ####[place] [address] [place] [address] [facility] Albumin/Globulin [Mass ratio] 1.4 {ratio} Normal [facility] Comment on above: Performed By: #### C ERICA, CMP ####[address] [address] [facility] ALP [Catalytic activity/Vol] 74 U/L Normal 34-104 [facility] Comment on above: Performed By: #### C BC, CMP ####[address] [address] [facility] ALT [Catalytic activity/Vol] 11 U/L Normal 7-52 [facility] Comment on above: Performed By: #### C ERICA, CMP ####[address] [address] [facility] Anion gap [Moles/Vol] 11.4 mmol/L Normal 6.0-15.0 [facility] Comment on above: Performed By: #### C BC, CMP ####[address] [address] [facility] AST [Catalytic activity/Vol] 13 U/L Normal 13-39 [facility] Comment on above: Performed By: #### C BC, CMP ####[address] [address] [facility] Bilirubin [Mass/Vol] 0.4 mg/dL Normal 0.3-1.0 [facility] Comment on above: Performed By: #### C BC, CMP ####[facility] [place] [address] [facility] Calcium [Mass/Vol] 8.9 mg/dL Normal 8.6-10.3 [facility] Comment on above: Performed By: #### C BC, CMP ####[facility] [place] [address] [facility] Chloride [Moles/Vol] 102 mmol/L Normal 98-107 [facility] Comment on above: Performed By: #### C BC, CMP ####[place] [address] [place] [address] [facility] CO2 [Moles/Vol] 28.3 mmol/L Normal 21.0-31.0 [facility] Comment on above: Performed By: #### C BC, CMP ####[place] [address] [place] [id number] [facility] Creatinine [Mass/Vol] 0.87 mg/dL Normal 0.70-1.30 [facility] Comment on above: Performed By: #### C BC, CMP ####[place] [address] [place] [address] [place] Creatinine Clr Calc Pharmacy 66.61 [facility] Comment on above: Result Comment: PERF ORMED BY: [facility] [address] [place] [address] PATHOLOGIST CCU NURSE KASSANDRA STACK M.D. Performed By: #### C BC, CMP ####[place] [address] [place] [id number] [facility] GFR/1.73 sq M.predicted MDRD (S/P/Bld) [Vol rate/Area] mL/min/{1.73_m2} [facility] Comment on above: Performed By: #### C BC, CMP ####[place] [address] [place] [id number] [facility] Globulin (S) [Mass/Vol] 2.6 g/dL [facility] Comment on above: Performed By: #### C BC, CMP ####[place] [address] [place] [id number] [facility] Glucose [Mass/Vol] 99 mg/dL Normal 70-100 [facility] Comment on above: Result Comment: [facility] Glucose Reference Range is dependent on time and content of last meal. Glucose of more than 200 mg/dL in a nonstressed, ambulatory subject supports the diagnosis of Diabetes Mellitus. ADA recommended reference range Performed By: #### C BC, CMP ####[place] [id number] [facility] Potassium [Moles/Vol] 3.7 mmol/L Normal 3.5-5.1 [facility] Comment on above: Performed By: #### C ERICA, CMP ####[place] [address] [place] [id number] [facility] Protein [Mass/Vol] 6.3 g/dL Low 6.4-8.9 [facility] Comment on above: Performed By: #### C ERICA, CMP ####[place] [id number] [facility] Sodium [Moles/Vol] 138 mmol/L Normal 136-145 [facility] Comment on above: Performed By: #### C ERICA, CMP ####[place] [id number] [facility] Urea nitrogen [Mass/Vol] 14 mg/dL Normal 7-25 [facility] Comment on above: Performed By: #### C ERICA, CMP ####[place] [id number] [facility] Creatinine [Mass/volume] in Serum or PlasmaOrdered By: Miguel Hinson on 02-07-2023 Creatinine [Mass/Vol] 0.87 mg/dL 0.70-1.30 [facility] ECG 12 lead ECGon 02-07-2023 ECG 12 lead ECG [facility] [address] [place] [id number] Electrocardiograph Report Signed Patient: Tadeo Thomas MR#: [id number] 0 : 1945 Acct:[id number] Age/Sex: 78 / M ADM Date: 02/03/23 Loc: 3T Room: [address] [place] [address] Type: ADM IN Attending Dr: Miguel Hinson [...] Signed By Aracelis Perkins DO 02/07 Normal [facility] Eosinophils Auto (Bld) [#/Vo l]Ordered By: Miguel Hinson on 02-07-2023 Eosinophils (Bld) [#/Vol] 0.1 10*3/uL 0.0-0.45 [facility] Eosinophils/100 WBC Auto (Bl d)Ordered By: Miguel Hinson on 02-07-2023 Eosinophils/100 WBC (Bld) 0.8 % . [facility] Erythrocyte distribution wid th Auto (RBC) [Ratio]Ordered By: Miguel Hinson on 02-07-2023 Erythrocyte distribution width (RBC) [Ratio] 15.0 % 12.0-14.8 [facility] Globulin Calc (S) [Mass/Vol] Ordered By: Miguel Hinson on 02-07-2023 Globulin (S) [Mass/Vol] 2.6 g/dL [facility] Glucose [Mass/volume] in Ser um or PlasmaOrdered By: Miguel Hinson on 02-07-2023 Glucose [Mass/Vol] 99 mg/dL 70-100 [facility] Comment on above: ADA recommended refe rence rangeRandom Glucose Reference Range is dependent on time and content of last meal. Glucose of more than 200 mg/dL in a nonstressed, ambulatory subject supports the diagnosis of Diabetes Mellitus. Hematocrit Auto (Bld) [Volum e fraction]Ordered By: Miguel Hinson on 02-07-2023 Hematocrit (Bld) [Volume fraction] 35.2 % 38.8-50.0 [facility] Hemoglobin [Mass/volume] in BloodOrdered By: Miguel Hinson on 02-07-2023 Hemoglobin (Bld) [Mass/Vol] 11.8 g/dL 13.0-17.0 [facility] Leukocytes [#/volume] correc ale for nucleated erythrocytes in Blood by Automated counOrdered By: Miguel Hinson on 02-07-2023 WBC corrected for nucl RBC Auto (Bld) [#/Vol] 11.7 10*3/uL 4.1-10.5 [facility] Lymphocytes Auto (Bld) [#/Vo l]Ordered By: Miguel Hinson on 02-07-2023 Lymphocytes (Bld) [#/Vol] 5.6 10*3/uL 1.00-4.8 [facility] Lymphocytes/100 WBC Auto (Bl d)Ordered By: Miguel Hinson on 02-07-2023 Lymphocytes/100 WBC (Bld) 48.1 % . [facility] MCH Auto (RBC) [Entitic mass ]Ordered By: Miguel Hinson on 02-07-2023 MCH (RBC) [Entitic mass] 33.0 pg 27.5-35.2 [facility] MCHC Auto (RBC) [Mass/Vol]Or dered By: Miguel Hinson on 02-07-2023 MCHC (RBC) [Mass/Vol] 33.5 g/dL 32.5-35.6 [facility] MCV Auto (RBC) [Entitic vol] Ordered By: Miguel Hinson on 02-07-2023 MCV (RBC) [Entitic vol] 98.4 fL 83.5-101 [facility] Monocytes Auto (Bld) [#/Vol] Ordered By: Avrildajustino Stevensomar on 02-07-2023 Monocytes (Bld) [#/Vol] 0.8 10*3/uL 0.0-0.8 [facility] Monocytes/100 WBC Auto (Bld) Ordered By: Objacquidajustino Stevensomar on 02-07-2023 Monocytes/100 WBC (Bld) 6.7 % . [facility] Neutrophils Auto (Bld) [#/Vo l]Ordered By: Objacquidajustino Stevensomar on 02-07-2023 Neutrophils (Bld) [#/Vol] 5.2 10*3/uL 1.8-7.7 [facility] Neutrophils/100 WBC Auto (Bl d)Ordered By: Objacquidajustino Stevensomar on 02-07-2023 Neutrophils/100 WBC (Bld) 44.2 % . [facility] No Panel InformationOrdered By: Miguel Murdockr on 02-07-2023 Estimated GFR (CKD-EPI) > 60.0 mL/Min [facility] Pharmacy Creatinine Clearance (Chem 66.61 [facility] Nucleated erythrocytes [Pres ence] in Blood by Automated countOrdered By: Migule Murdockr on 02-07-2023 Nucleated RBC Auto Ql (Bld) 0.2 /100{WBC} 0-0.5 [facility] Platelet mean volume Auto (B ld) [Entitic vol]Ordered By: Obkatherine Stevensomar on 02-07-2023 Platelet mean volume (Bld) [Entitic vol] 7.8 fL 6.6-10.1 [facility] Platelets Auto (Bld) [#/Vol] Ordered By: Obkatherine Stevensomar on 02-07-2023 Platelets (Bld) [#/Vol] 248 10*3/uL 150-450 [facility] Potassium [Moles/volume] in Serum or PlasmaOrdered By: Obkatherine Stevensomar on 02-07-2023 Potassium [Moles/Vol] 3.7 mmol/L 3.5-5.1 [facility] Protein [Mass/volume] in Ser um or PlasmaOrdered By: Obkatherine Stevensomar on 02-07-2023 Protein [Mass/Vol] 6.3 g/dL 6.4-8.9 [facility] RBC Auto (Bld) [#/Vol]Ordere d By: Avrildajustino Stevensomar on 02-07-2023 RBC (Bld) [#/Vol] 3.58 10*6/uL 3.90-5.60 [facility] Serum or plasma albumin/glob ulin mass ratioOrdered By: Objacquidajustino Stevensomar on 02-07-2023 Albumin/Globulin [Mass ratio] 1.4 {ratio} [facility] Serum or plasma anion gap de terminationOrdered By: Objacquidajustino Stevensomar on 02-07-2023 Anion gap [Moles/Vol] 11.4 mmol/L 6.0-15.0 [facility] Sodium [Moles/volume] in Ser um or PlasmaOrdered By: Objacquidah Daromar on 02-07-2023 Sodium [Moles/Vol] 138 mmol/L 136-145 [facility] Urea nitrogen [Mass/volume] in Serum or PlasmaOrdered By: Objacquidajustino Daromar on 02-07-2023 Urea nitrogen [Mass/Vol] 14 mg/dL 10-06 [facility] WBC Auto (Bld) [#/Vol]Ordere d By: Miguel Stevensomar on 02-07-2023 WBC (Bld) [#/Vol] 11.7 10*3/uL 4.1-10.5 [facility] ECG 12 lead ECGon 02-06-2023 ECG 12 lead ECG [facility] [place] [address] Electrocardiograph Report Signed Patient: Tadeo Thomas MR#: [id number] 0 : 1945 Acct:[id number] Age/Sex: 78 / M ADM Date: 02/03/23 Loc: Room: [address] [place] [address] Type: ADM IN Attending Dr: Miguel Hinson [...] MUS Signed By Aracelis Perkins DO 02/06 [facility] ECG 12 lead ECGon 02-05-2023 ECG 12 lead ECG [facility] [place] [address] Electrocardiograph Report Signed Patient: Tadeo Thomas MR#: [id number] 0 : 1945 Acct:[id number] Age/Sex: 78 / M ADM Date: 02/03/23 Loc: Room: [address] [place] [address] Type: ADM IN Attending Dr: Jennifer Cruz [...] MUS Signed By Aracelis Perkins DO 02/05 [facility] ECG 12 lead ECGon 02-04-2023 ECG 12 lead ECG [facility] [address] [place] [address] Electrocardiograph Report Signed Patient: Tadeo Thomas MR#: [id number] 0 : 1945 Acct:[id number] Age/Sex: 78 / M ADM Date: 02/03/23 Loc: Room: [address] [place] [address] Type: ADM IN Attending Dr: Jennifer Cruz [...] MUS Signed By Aracelis Perkins DO 02/04 5844 [facility] Basic Metabolic Panelon -2 Anion gap [Moles/Vol] 11.0 mmol/L Normal 6.0-15.0 [facility] Comment on above: Performed By: #### B MP ####[facility] [id number] [place] [address] [facility] Calcium [Mass/Vol] 8.3 mg/dL Low 8.6-10.3 [facility] Comment on above: Performed By: #### B MP ####[facility] [id number] [place] [address] [facility] Chloride [Moles/Vol] 104 mmol/L Normal 98-107 [facility] Comment on above: Performed By: #### B MP ####[facility] [place] [id number] [facility] CO2 [Moles/Vol] 30.7 mmol/L Normal 21.0-31.0 [facility] Comment on above: Performed By: #### B MP ####[place] [address] [place] [id number] [facility] Creatinine [Mass/Vol] 0.81 mg/dL Normal 0.70-1.30 [facility] Comment on above: Performed By: #### B MP ####[place] [id number] [place] Creatinine Clr Calc Pharmacy 76.15 Normal [facility] Comment on above: Result Comment: PERF ORMED BY: [facility] [address] [place] [id number] PATHOLOGIST CCU NURSE KASSANDRA STACK M.D. Performed By: #### B MP ####[place] [id number] [facility] GFR/1.73 sq M.predicted MDRD (S/P/Bld) [Vol rate/Area] mL/min/{1.73_m2} Normal [facility] Comment on above: Performed By: #### B MP ####[place] [id number] [facility] Glucose [Mass/Vol] 92 mg/dL Significant change down 70-100 [facility] Comment on above: Result Comment: [place] Glucose Reference Range is dependent on time and content of last meal. Glucose of more than 200 mg/dL in a nonstressed, ambulatory subject supports the diagnosis of Diabetes Mellitus. ADA recommended reference range Performed By: #### B MP ####[place] [id number] [facility] Potassium [Moles/Vol] 3.7 mmol/L Normal 3.5-5.1 [facility] Comment on above: Performed By: #### B MP ####[place] [id number] [facility] Sodium [Moles/Vol] 142 mmol/L Significant change down 136-145 [facility] Comment on above: Performed By: #### B MP ####[facility] [place] [address] [facility] Urea nitrogen [Mass/Vol] 17 mg/dL Normal 7-25 [facility] Comment on above: Performed By: #### B MP ####[facility] [place] [id number] [facility] Alanine aminotransferase [En zymatic activity/volume] in Serum or PlasmaOrdered By: Nicolas Zavala on 02-02-2023 ALT [Catalytic activity/Vol] 18 U/L 7-52 [facility] Albumin [Mass/volume] in Ser um or Plasma by Bromocresol green (BCG) dye binding methoOrdered By: Nicolas Zavala on 02-02-2023 Albumin BCG dye [Mass/Vol] 3.7 g/dL 3.5-5.7 [facility] Alkaline phosphatase [Enzyma tic activity/volume] in Serum or PlasmaOrdered By: Nicolas Zavala on 02-02-2023 ALP [Catalytic activity/Vol] 74 U/L 34-104 [facility] Aspartate aminotransferase [ Enzymatic activity/volume] in Serum or PlasmaOrdered By: Nicolas Zavala on 02-02-2023 AST [Catalytic activity/Vol] 17 U/L 13-39 [facility] B-Type Natriuretic Peptideon 02-02-2023 Natriuretic peptide B (Bld) [Mass/Vol] 427.0 pg/mL High 5-100 [facility] Comment on above: Result Comment: PERF ORMED BY: [facility] [address] [place] [id number] PATHOLOGIST CCU NURSE KASSANDRA STACK M.D. Performed By: #### H S TROP, BNP, CMP, CBC ####[place] [address] [place] [id number] [facility] Basophils Auto (Bld) [#/Vol] Ordered By: Nicolas Zavala on 02-02-2023 Basophils (Bld) [#/Vol] 0.0 10*3/uL 0.0-0.2 [facility] Basophils/100 WBC Auto (Bld) Ordered By: Nicolas Zavala on 02-02-2023 Basophils/100 WBC (Bld) 0.3 % . [facility] Bilirubin.total [Mass/volume ] in Serum or PlasmaOrdered By: Nicolas Zavala on 02-02-2023 Bilirubin [Mass/Vol] 0.5 mg/dL 0.3-1.0 [facility] Calcium [Mass/volume] in Ser um or PlasmaOrdered By: Nicolas Zavala on 02-02-2023 Calcium [Mass/Vol] 9.0 mg/dL 8.6-10.3 [facility] Carbon dioxide, total [Moles /volume] in Serum or PlasmaOrdered By: Nicolas Zavala on 02-02-2023 CO2 [Moles/Vol] 26.5 mmol/L 21.0-31.0 [facility] Chloride [Moles/volume] in S estela or PlasmaOrdered By: Nicolas Zavala on 02-02-2023 Chloride [Moles/Vol] 105 mmol/L 98-107 [facility] Complete Blood Count Auto Di ffon 02-02-2023 Basophils (Bld) [#/Vol] 0.0 10*3/uL Normal 0.0-0.2 [facility] Comment on above: Result Comment: PERF ORMED BY: [facility] [address] [facility] [place] [id number] PATHOLOGIST CCU NURSE KASSANDRA STACK M.D. Performed By: #### H S TROP, BNP, CMP, CBC ####[facility] [id number] [place] [id number] [facility] Basophils/100 WBC (Bld) 0.3 % Normal . [facility] Comment on above: Performed By: #### H S TROP, BNP, CMP, CBC ####[facility] [id number] [place] [id number] [place] Eosinophils (Bld) [#/Vol] 0.0 10*3/uL Normal 0.0-0.45 [facility] Comment on above: Performed By: #### H S TROP, BNP, CMP, CBC ####[place] [address] [place] [id number] [facility] Eosinophils/100 WBC (Bld) 0.2 % Normal . [facility] Comment on above: Performed By: #### H S TROP, BNP, CMP, CBC ####[address] Erythrocyte distribution width (RBC) [Ratio] 14.8 % Normal 12.0-14.8 [facility] Comment on above: Performed By: #### H S TROP, BNP, CMP, CBC ####[address] Hematocrit (Bld) [Volume fraction] 32.4 % Low 38.8-50.0 [facility] Comment on above: Performed By: #### H S TROP, BNP, CMP, CBC ####[address] Hemoglobin (Bld) [Mass/Vol] 11.0 g/dL Low 13.0-17.0 [facility] Comment on above: Performed By: #### H S TROP, BNP, CMP, CBC ####[address] Lymphocytes (Bld) [#/Vol] 3.3 10*3/uL Normal 1.00-4.8 [facility] Comment on above: Performed By: #### H S TROP, BNP, CMP, CBC ####[address] Lymphocytes/100 WBC (Bld) 35.5 % Normal . [facility] Comment on above: Performed By: #### H S TROP, BNP, CMP, CBC ####[address] MCH (RBC) [Entitic mass] 33.5 pg Normal 27.5-35.2 [facility] Comment on above: Performed By: #### H S TROP, BNP, CMP, CBC ####[address] MCV (RBC) [Entitic vol] 99.1 fL Normal 83.5-101 [facility] Comment on above: Performed By: #### H S TROP, BNP, CMP, CBC ####[address] Mean Corpuscular HGB Conc 33.8 g/dL Normal 32.5-35.6 [facility] Comment on above: Performed By: #### H S TROP, BNP, CMP, CBC ####[address] Monocytes (Bld) [#/Vol] 0.4 10*3/uL Normal 0.0-0.8 [facility] Comment on above: Performed By: #### H S TROP, BNP, CMP, CBC ####[address] Monocytes/100 WBC (Bld) 18.83 % Normal 0.00-20.00 [facility] Comment on above: Performed By: #### H S TROP, BNP, CMP, CBC ####[address] Monocytes/100 WBC (Bld) 4.8 % Normal . [facility] Comment on above: Performed By: #### H S TROP, BNP, CMP, CBC ####[address] Neutrophils (Bld) [#/Vol] 5.4 10*3/uL Normal 1.8-7.7 [facility] Comment on above: Performed By: #### H S TROP, BNP, CMP, CBC ####[address] Neutrophils/100 WBC (Bld) 59.2 % Normal . [facility] Comment on above: Performed By: #### H S TROP, BNP, CMP, CBC ####[address] NRBC% 0.6 /100{WBC} High 0-0.5 [facility] Comment on above: Performed By: #### H S TROP, BNP, CMP, CBC ####[address] Platelet mean volume (Bld) [Entitic vol] 8.2 fL Normal 6.6-10.1 [facility] Comment on above: Performed By: #### H S TROP, BNP, CMP, CBC ####[address] Platelets (Bld) [#/Vol] 227 10*3/uL Normal 150-450 [facility] Comment on above: Performed By: #### H S TROP, BNP, CMP, CBC ####[address] RBC (Bld) [#/Vol] 3.26 10*6/uL Low 3.90-5.60 [facility] Comment on above: Performed By: #### H S TROP, BNP, CMP, CBC ####[address] WBC (Bld) [#/Vol] 9.2 10*3/uL Normal 4.1-10.5 [facility] Comment on above: Performed By: #### H S TROP, BNP, CMP, CBC ####[address] Comprehensive Metabolic Pane christian 02-02-2023 Albumin [Mass/Vol] 3.7 g/dL Normal 3.5-5.7 [facility] Comment on above: Performed By: #### H S TROP, BNP, CMP, CBC ####[address] Albumin/Globulin [Mass ratio] 1.3 {ratio} Normal [facility] Comment on above: Performed By: #### H S TROP, BNP, CMP, CBC ####[address] ALP [Catalytic activity/Vol] 74 U/L Normal 34-104 [facility] Comment on above: Performed By: #### H S TROP, BNP, CMP, CBC ####[address] ALT [Catalytic activity/Vol] 18 U/L Normal 7-52 [facility] Comment on above: Performed By: #### H S TROP, BNP, CMP, CBC ####[address] Anion gap [Moles/Vol] 6.7 mmol/L Normal 6.0-15.0 [facility] Comment on above: Performed By: #### H S TROP, BNP, CMP, CBC ####[address] AST [Catalytic activity/Vol] 17 U/L Normal 13-39 [facility] Comment on above: Performed By: #### H S TROP, BNP, CMP, CBC ####[address] Bilirubin [Mass/Vol] 0.5 mg/dL Normal 0.3-1.0 [facility] Comment on above: Performed By: #### H S TROP, BNP, CMP, CBC ####[address] Calcium [Mass/Vol] 9.0 mg/dL Normal 8.6-10.3 [facility] Comment on above: Performed By: #### H S TROP, BNP, CMP, CBC ####[address] Chloride [Moles/Vol] 105 mmol/L Normal 98-107 [facility] Comment on above: Performed By: #### H S TROP, BNP, CMP, CBC ####[address] CO2 [Moles/Vol] 26.5 mmol/L Normal 21.0-31.0 [facility] Comment on above: Performed By: #### H S TROP, BNP, CMP, CBC ####[address] Creatinine [Mass/Vol] 0.99 mg/dL Normal 0.70-1.30 [facility] Comment on above: Performed By: #### H S TROP, BNP, CMP, CBC ####[place] [address] [address] Creatinine Clr Calc Pharmacy 63.41 [facility] Comment on above: Result Comment: PERF ORMED BY: [facility] [address] [place] [address] PATHOLOGIST CCU NURSE KASSANDRA STACK M.D. Performed By: #### H S TROP, BNP, CMP, CBC ####[address] GFR/1.73 sq M.predicted MDRD (S/P/Bld) [Vol rate/Area] mL/min/{1.73_m2} [facility] Comment on above: Performed By: #### H S TROP, BNP, CMP, CBC ####[address] Globulin (S) [Mass/Vol] 2.9 g/dL [facility] Comment on above: Performed By: #### H S TROP, BNP, CMP, CBC ####[address] Glucose [Mass/Vol] 227 mg/dL High 70-100 [facility] Comment on above: Result Comment: [facility] Glucose Reference Range is dependent on time and content of last meal. Glucose of more than 200 mg/dL in a nonstressed, ambulatory subject supports the diagnosis of Diabetes Mellitus. ADA recommended reference range Performed By: #### H S TROP, BNP, CMP, CBC ####[address] Potassium [Moles/Vol] 4.2 mmol/L Normal 3.5-5.1 [facility] Comment on above: Performed By: #### H S TROP, BNP, CMP, CBC ####[address] Protein [Mass/Vol] 6.6 g/dL Normal 6.4-8.9 [facility] Comment on above: Performed By: #### H S TROP, BNP, CMP, CBC ####[address] [place] [address] [facility] Sodium [Moles/Vol] 134 mmol/L Low 136-145 [facility] Comment on above: Performed By: #### H S TROP, BNP, CMP, CBC ####[place] [address] [place] [id number] [facility] Urea nitrogen [Mass/Vol] 24 mg/dL Normal 7-25 [facility] Comment on above: Performed By: #### H S TROP, BNP, CMP, CBC ####[place] [address] [place] [address] [facility] Creatinine [Mass/volume] in Serum or PlasmaOrdered By: Nicolas Zavala on 02-02-2023 Creatinine [Mass/Vol] 0.99 mg/dL 0.70-1.30 [facility] Digoxinon 02-02-2023 Digoxin [Mass/Vol] ng/mL Low 0.9-2.0 [facility] Comment on above: Result Comment: Last dose: - PERFORMED BY: [place] [address] PATHOLOGIST CCU NURSE KASSANDRA STACK M.D. Performed By: #### D IG ####[place] [id number] [facility] Digoxin [Mass/volume] in Ser um or PlasmaOrdered By: Nicolas Zavala on 02-02-2023 Digoxin [Mass/Vol] ng/mL 0.9-2.0 [facility] Comment on above: Last dose: - ECG 12 lead ECGon 02-02-2023 ECG 12 lead ECG [facility] [place] [address] Electrocardiograph Report Signed Patient: Tadeo Thomas MR#: [id number] 0 : 1945 Acct:[id number] Age/Sex: 78 / M ADM Date: 02/02/23 Loc: Room: [address] [place] [address] Type: ADM INOo Attending Dr: Jennifer Cruz [...] paced rhythm Confirmed by Nicolas Zavala DO ([id number]) on 02/02/2023 8:03:51 PM Referred By: Electronically Signed By:Nicolas Zavala DO Transcribed By: MUS Signed By Nicolas Zavala DO 2002 [facility] ECG 12 lead ECG [facility] [place] [address] Electrocardiograph Report Signed Patient: Tadeo Thomas MR#: [id number] 0 : 1945 Acct:[id number] Age/Sex: 78 / M ADM Date: 02/02/23 Loc: Room: [address] [place] [address] Type: ADM INOo Attending Dr: Jennifer Cruz [...] branch block Confirmed by Nicolas Zavala DO ([id number]) on 02/02/2023 8:04:29 PM Referred By: Electronically Signed By:Nicolas Zavala DO Transcribed By: MUS Signed By Nicolas Zavala DO 2003 [facility] ECG 12 lead ECG [facility] [address] [place] [id number] Electrocardiograph Report Signed Patient: Tadeo Thomas MR#: [id number] 0 : 1945 Acct:[id number] Age/Sex: 78 / M ADM Date: 02/02/23 Loc: Room: [address] [place] [address] Type: ADM INOo Attending Dr: Jennifer Cruz [...] with RBBB Confirmed by Nicolas Zavala DO ([id number]) on 02/02/2023 8:04:59 PM Referred By: Electronically Signed By:Nicolas aZvala DO Transcribed By: MUS Signed By Nicolas Zavala DO 2004 [facility] ECG 12 lead ECG [facility] [place] [address] Electrocardiograph Report Signed Patient: Tadeo Thomas MR#: [id number] 0 : 1945 Acct:[id number] Age/Sex: 78 / M ADM Date: 02/02/23 Loc: Room: [address] [place] [address] Type: ADM INOo Attending Dr: Jennifer Cruz [...] with RBBB Confirmed by Nicolas Zavala DO ([id number]) on 02/02/2023 8:05:19 PM Referred By: Electronically Signed By:Nicolas Zavala DO Transcribed By: MUS Signed By Nicolas Zavala DO 2004 [facility] Eosinophils Auto (Bld) [#/Vo l]Ordered By: Nicolas Zavala on 02-02-2023 Eosinophils (Bld) [#/Vol] 0.0 10*3/uL 0.0-0.45 [facility] Eosinophils/100 WBC Auto (Bl d)Ordered By: Nicolas Zavala on 02-02-2023 Eosinophils/100 WBC (Bld) 0.2 % . [facility] Erythrocyte distribution wid th Auto (RBC) [Ratio]Ordered By: Nicolas Zavala on 02-02-2023 Erythrocyte distribution width (RBC) [Ratio] 14.8 % 12.0-14.8 [facility] Globulin Calc (S) [Mass/Vol] Ordered By: Nicolas Zavala on 02-02-2023 Globulin (S) [Mass/Vol] 2.9 g/dL [facility] Glucose [Mass/volume] in Ser um or PlasmaOrdered By: Nicolas Zavala on 02-02-2023 Glucose [Mass/Vol] 227 mg/dL 70-100 [facility] Comment on above: ADA recommended refe rence rangeRandom Glucose Reference Range is dependent on time and content of last meal. Glucose of more than 200 mg/dL in a nonstressed, ambulatory subject supports the diagnosis of Diabetes Mellitus. Hematocrit Auto (Bld) [Volum e fraction]Ordered By: Nicolas Zavala on 02-02-2023 Hematocrit (Bld) [Volume fraction] 32.4 % 38.8-50.0 [facility] Hemoglobin [Mass/volume] in BloodOrdered By: Nicolas Zavala on 02-02-2023 Hemoglobin (Bld) [Mass/Vol] 11.0 g/dL 13.0-17.0 [facility] Leukocytes [#/volume] correc ale for nucleated erythrocytes in Blood by Automated counOrdered By: Nicolas Zavala on 02-02-2023 WBC corrected for nucl RBC Auto (Bld) [#/Vol] 9.2 10*3/uL 4.1-10.5 [facility] Lymphocytes Auto (Bld) [#/Vo l]Ordered By: Nicolas Zavala on 02-02-2023 Lymphocytes (Bld) [#/Vol] 3.3 10*3/uL 1.00-4.8 [facility] Lymphocytes/100 WBC Auto (Bl d)Ordered By: Nicolas Zavala on 02-02-2023 Lymphocytes/100 WBC (Bld) 35.5 % . [facility] MCH Auto (RBC) [Entitic mass ]Ordered By: Nicolas Zavala on 02-02-2023 MCH (RBC) [Entitic mass] 33.5 pg 27.5-35.2 [facility] MCHC Auto (RBC) [Mass/Vol]Or dered By: Nicolas Zavala on 02-02-2023 MCHC (RBC) [Mass/Vol] 33.8 g/dL 32.5-35.6 [facility] MCV Auto (RBC) [Entitic vol] Ordered By: Nicolas Zavala on 02-02-2023 MCV (RBC) [Entitic vol] 99.1 fL 83.5-101 [facility] Monocyte distribution width [Entitic volume] in Blood by AutomatedOrdered By: Nicolas Zavala on 02-02-2023 Monocyte distribution width Auto (Bld) [Entitic vol] 18.83 % 0.00-20.00 [facility] Monocytes Auto (Bld) [#/Vol] Ordered By: Nicolas Zavala on 02-02-2023 Monocytes (Bld) [#/Vol] 0.4 10*3/uL 0.0-0.8 [facility] Monocytes/100 WBC Auto (Bld) Ordered By: Nicolas Zavala on 02-02-2023 Monocytes/100 WBC (Bld) 4.8 % . [facility] Natriuretic peptide B [Mass/ Vol]Ordered By: Nicolas Zavala on 02-02-2023 Natriuretic peptide B (Bld) [Mass/Vol] 427.0 pg/mL 5-100 [facility] Neutrophils Auto (Bld) [#/Vo l]Ordered By: Nicolas Zavala on 02-02-2023 Neutrophils (Bld) [#/Vol] 5.4 10*3/uL 1.8-7.7 [facility] Neutrophils/100 WBC Auto (Bl d)Ordered By: Nicolas Zavala on 02-02-2023 Neutrophils/100 WBC (Bld) 59.2 % . [facility] No Panel InformationOrdered By: Nicolas Zavala on 02-02-2023 Estimated GFR (CKD-EPI) > 60.0 mL/Min [facility] Pharmacy Creatinine Clearance (Chem 63.41 [facility] Nucleated erythrocytes [Pres ence] in Blood by Automated countOrdered By: Nicolas Zavala on 02-02-2023 Nucleated RBC Auto Ql (Bld) 0.6 /100{WBC} 0-0.5 [facility] Platelet mean volume Auto (B ld) [Entitic vol]Ordered By: Nicolas Zavala on 02-02-2023 Platelet mean volume (Bld) [Entitic vol] 8.2 fL 6.6-10.1 [facility] Platelets Auto (Bld) [#/Vol] Ordered By: Nicolas Zavala on 02-02-2023 Platelets (Bld) [#/Vol] 227 10*3/uL 150-450 [facility] Potassium [Moles/volume] in Serum or PlasmaOrdered By: Nicolas Zavala on 02-02-2023 Potassium [Moles/Vol] 4.2 mmol/L 3.5-5.1 [facility] Protein [Mass/volume] in Ser um or PlasmaOrdered By: Nicolas Zavala on 02-02-2023 Protein [Mass/Vol] 6.6 g/dL 6.4-8.9 [facility] RBC Auto (Bld) [#/Vol]Ordere d By: Nicolas Zavala on 02-02-2023 RBC (Bld) [#/Vol] 3.26 10*6/uL 3.90-5.60 [facility] Serum or plasma albumin/glob ulin mass ratioOrdered By: Nicolas Zavala on 02-02-2023 Albumin/Globulin [Mass ratio] 1.3 {ratio} [facility] Serum or plasma anion gap de terminationOrdered By: Nicolas Zavala on 02-02-2023 Anion gap [Moles/Vol] 6.7 mmol/L 6.0-15.0 [facility] Sodium [Moles/volume] in Ser um or PlasmaOrdered By: Nicolas Zavala on 02-02-2023 Sodium [Moles/Vol] 134 mmol/L 136-145 [facility] Troponin I High Sensitivityo n 02-02-2023 Troponin I High Sensitivity 15.0 pg/mL Normal 0.0-20.0 [facility] Comment on above: Result Comment: PERF ORMED BY: [place] [address] PATHOLOGIST CCU NURSE KASSANDRA STACK M.D. Performed By: #### H S TROP, BNP, CMP, CBC ####[facility] [id number] [place] [address] [facility] Troponin I.cardiac [Mass/vol ume] in Serum or Plasma by Detection limit <= 0.01 ng/Ordered By: Nicolas Zavala on 02-02-2023 Troponin I.cardiac DL <= 0.01 ng/mL [Mass/Vol] 15.0 pg/mL 0.0-20.0 [facility] Urea nitrogen [Mass/volume] in Serum or PlasmaOrdered By: Nicolas Zavala on 02-02-2023 Urea nitrogen [Mass/Vol] 24 mg/dL 7-25 [facility] WBC Auto (Bld) [#/Vol]Ordere d By: Nicolas Zavala on 02-02-2023 WBC (Bld) [#/Vol] 9.2 10*3/uL 4.1-10.5 [facility] XR chest 1V portableon 02-02 XR chest 1V portable [facility] [address] [place] [id number] XRay Report Signed Patient: Tadeo Thomas MR#: [id number] 0 : 1945 Acct:[id number] Age/Sex: 78 / M ADM Date: 02/02/23 [...] Lacey Jr., D.OGerardo02/02/2023 12:16 PM Dictation Location: [place] [address] Transcribed By: [facility] 02/02/23 121 Dictated By: Jamaal Lacey Jr DO 02/02/23 1210 Signed By: 02/02/23 1216 Normal [facility] ALBUMIN, RANDOM URINE W/CREA TININEon 12-17-2022 ALBUMIN, URINE 8.9 mg/dL Normal See Note: [facility] Comment on above: Result Comment: Refe rence Range: Reference Range Not established Performed By: #### 6 517, 90244, 8753 #### [facility] [address], [address] [place] [address] Cotton Grader: Sunday Chu MD ALBUMIN/CREATININE RATIO, RANDOM URINE [...] diagnostic category. Performed By: #### 6 517, 41143, 5463 #### [facility] [address], [address] [place] [address] Cotton Grader: Sunday Chu MD Creatinine (U) [Mass/Vol] 362 mg/dL High 20-320 [facility] Comment on above: Result Comment: Results verified by repeat analysis on dilution. Performed By: #### 6 517, 59688, 5463 #### [facility] [address], [address] [place] [address] Cotton Grader: Sunday Chu MD CBC (INCLUDES DIFF/PLT)on Basophils (Bld) [#/Vol] 0.023 10*3/uL Normal 0-200 [facility] Comment on above: Performed By: #### 6 517, 51952, 5463 #### [facility] of [place] [address] Cotton Grader: Sunday Chu MD Basophils/100 WBC (Bld) 0.3 % Normal [facility] Comment on above: Performed By: #### 6 517, 72790, 5463 #### [facility] of [place] [address] Cotton Grader: Sunday Chu MD Eosinophils (Bld) [#/Vol] 0.031 10*3/uL Normal 15-500 [facility] Comment on above: Performed By: #### 6 517, 00877, 5463 #### [facility] of [place] [address] Cotton Grader: Sunday Chu MD Eosinophils/100 WBC (Bld) 0.4 % Normal [facility] Comment on above: Performed By: #### 6 517, 72866, 5463 #### [facility] of [place] [address] Cotton Grader: Sunday Chu MD Erythrocyte distribution width (RBC) [Ratio] 13.4 % Normal 11.0-15.0 [facility] Comment on above: Performed By: #### 6 517, 40421, 5463 #### [facility] of [place] [address] Cotton Grader: Sunday Chu MD Hematocrit (Bld) [Volume fraction] 35.3 % Low 38.5-50.0 [facility] Comment on above: Performed By: #### 6 517, 04563, 5463 #### [facility] of [place] [address] Cotton Grader: Sunday Chu MD Hemoglobin (Bld) [Mass/Vol] 11.7 g/dL Low 13.2-17.1 [facility] Comment on above: Performed By: #### 6 517, 90952, 5463 #### [facility] of [address], [address] [place] [address] Cotton Grader: Sunday Chu MD Lymphocytes (Bld) [#/Vol] 3.773 10*3/uL Normal 850-3900 [facility] Comment on above: Performed By: #### 6 517, 88507, 5463 #### [facility] of [address], [address] [place] [address] Cotton Grader: Sunday Chu MD Lymphocytes/100 WBC (Bld) 49.0 % Normal [facility] Comment on above: Performed By: #### 6 517, 08459, 5463 #### [facility] of [place] [address] Cotton Grader: Sunday Chu MD MCH (RBC) [Entitic mass] 33.6 pg High 27.0-33.0 [facility] Comment on above: Performed By: #### 6 517, 91202, 5463 #### [facility] of [place] [address] Cotton Grader: Sunday Chu MD MCHC (RBC) [Mass/Vol] 33.1 g/dL Normal 32.0-36.[address] [facility] Comment on above: Performed By: #### 6 517, 67008, 5463 #### [facility] of [place] [address] Cotton Grader: Sunday Chu MD MCV (RBC) [Entitic vol] 101.4 fL High 80.0-100.0 [facility] Comment on above: Performed By: #### 6 517, 11103, 5463 #### [facility] of [place] [address] Cotton Grader: Sunday Chu MD Monocytes (Bld) [#/Vol] 0.362 10*3/uL Normal 200-950 [facility] Comment on above: Performed By: #### 6 517, 99782, 5463 #### [facility] of [place] [address] Cotton Grader: Sunday Chu MD Monocytes/100 WBC (Bld) 4.7 % Normal [facility] Comment on above: Performed By: #### 6 517, 74337, 5463 #### [facility] of [place] [address] Cotton Grader: Sunday Chu MD Neutrophils (Bld) [#/Vol] 3.511 10*3/uL Normal 7530-5336 [facility] Comment on above: Performed By: #### 6 517, 39492, 5463 #### [facility] of [place] [address] Cotton Grader: Sunday Chu MD Neutrophils/100 WBC (Bld) 45.6 % Normal [facility] Comment on above: Performed By: #### 6 517, 11007, 5463 #### [facility] of [place] [address] Cotton Grader: Sunday Chu MD Platelet mean volume (Bld) [Entitic vol] 10.2 fL Normal 7.5-12.5 [facility] Comment on above: Performed By: #### 6 517, 82644, 5463 #### [facility] of [place] [address] Cotton Grader: Sunday Chu MD Platelets (Bld) [#/Vol] 212 10*3/uL Normal 140-400 [facility] Comment on above: Performed By: #### 6 517, 68422, 5463 #### [facility] of [place] [address] Cotton Grader: Sunday Chu MD RBC (Bld) [#/Vol] 3.48 10*6/uL Low 4.20-5.80 [facility] Comment on above: Performed By: #### 6 517, 92506, 5463 #### [facility] of [place] [address] Cotton Grader: Sunday Chu MD WBC (Bld) [#/Vol] 7.7 10*3/uL Normal 3.8-10.8 [facility] Comment on above: Performed By: #### 6 517, 00458, 5463 #### [facility] of [place] [address] Cotton Grader: Sunday Chu MD [facility] 12-17-2022 Albumin [Mass/Vol] 3.9 g/dL Normal 3.6-5.1 [facility] Comment on above: Performed By: #### 6 517, 39282, 5463 #### [facility] of [place] [address] Cotton Grader: Sunday Chu MD Albumin/Globulin [Mass ratio] 1.7 {ratio} Normal 1.0-2.5 [facility] Comment on above: Performed By: #### 6 517, 27978, 5463 #### [facility] of [place] [address] Cotton Grader: Sunday Chu MD ALP [Catalytic activity/Vol] 58 U/L Normal 35-144 [facility] Comment on above: Performed By: #### 6 517, 44859, 5463 #### [facility] [place] [address] Cotton Grader: Sunday Chu MD ALT [Catalytic activity/Vol] 8 U/L Low 9-46 [facility] Comment on above: Performed By: #### 6 517, 29971, 5463 #### [facility] of [place] [address] Cotton Grader: Sunday Chu MD AST [Catalytic activity/Vol] 12 U/L Normal 10-35 [facility] Comment on above: Performed By: #### 6 517, 38948, 5463 #### [facility] of [place] [address] Cotton Grader: Sunday Chu MD Bilirubin [Mass/Vol] 0.4 mg/dL Normal 0.2-1.2 [facility] Comment on above: Performed By: #### 6 517, 46324, 5463 #### [facility] of [place] [address] Cotton Grader: Sunday Chu MD BUN/CREATININE RATIO SEE NOTE: Normal 6-22 [facility] Comment on above: Result Comment: Not Reported: BUN and Creatinine are within reference range. Performed By: #### 6 517, 87307, 5463 #### [facility] of [address], [address] [place] [address] Cotton Grader: Sunday Chu MD Calcium [Mass/Vol] 8.7 mg/dL Normal 8.6-10.3 [facility] Comment on above: Performed By: #### 6 517, 45952, 5463 #### [facility] of [place] [address] Cotton Grader: Sunday Chu MD Chloride [Moles/Vol] 102 mmol/L Normal 98-[address] [facility] Comment on above: Performed By: #### 6 517, 08742, 5463 #### [facility] of [place] [address] Cotton Grader: Sunday Chu MD CO2 [Moles/Vol] 28 mmol/L Normal 20-32 [facility] Comment on above: Performed By: #### 6 517, 85922, 5463 #### [facility] of [place] [address] Cotton Grader: Sunday Chu MD Creatinine [Mass/Vol] 0.83 mg/dL Normal 0.70-1.[address] [facility] [address] [facility] Comment on above: Performed By: #### 6 517, 97362, 5463 #### [facility] of [place] [address] Cotton Grader: Sunday Chu MD GFR/1.73 sq M.predicted among non-blacks MDRD (S/P/Bld) [Vol rate/Area] 90 mL/min/{1.73_m2} Normal > OR = 60 [facility] Comment on above: Performed By: #### 6 517, 53587, 5463 #### [facility] [place] [address], [address] [place] [address] Cotton Grader: Sunday Chu MD Globulin (S) [Mass/Vol] 2.3 g/dL Normal 1.9-3.7 [facility] Comment on above: Performed By: #### 6 517, 78456, 5463 #### [facility] [place] [address] Cotton Grader: Sunday Chu MD Glucose [Mass/Vol] 106 mg/dL High 65-99 [facility] Comment on above: Result Comment: Fasting reference interval For someone without known diabetes, a glucose value between 100 and 125 mg/dL is consistent with prediabetes and should be confirmed with a follow-up test. Performed By: #### 6 517, 97003, 5463 #### [facility] [place] [address] Cotton Grader: Sunday Chu MD Potassium [Moles/Vol] 4.2 mmol/L Normal 3.5-5.[address] [facility] Comment on above: Performed By: #### 6 517, 84791, 5463 #### [facility] [place] [address] Cotton Grader: Sunday Chu MD Protein [Mass/Vol] 6.2 g/dL Normal 6.1-8.1 [facility] Comment on above: Performed By: #### 6 517, 12956, 3 #### [facility] [place] [address] Cotton Grader: Sunday Chu MD Sodium [Moles/Vol] 140 mmol/L Normal 135-146 [facility] Comment on above: Performed By: #### 6 517, 52429, 5463 #### [facility] [place] [address] Cotton Grader: Sunday Chu MD Urea nitrogen [Mass/Vol] 16 mg/dL Normal 7-25 [facility] Comment on above: Performed By: #### 6 517, 29381, 5463 #### [facility] [place] [address] Cotton Grader: Sunday Chu MD URINALYSIS, COMPLETEon 12-17 Appearance (U) CLOUDY Abnormal CLEAR [facility] Comment on above: Performed By: #### 6 517, 28342, 5463 #### [facility] [place] [address] Cotton Grader: Sunday Chu MD BACTERIA NONE SEEN Normal NONE SEEN [facility] Comment on above: Performed By: #### 6 517, 31841, 5463 #### [facility] [place] [address] Cotton Grader: Sunday Chu MD Bilirubin Ql (U) 1+ Abnormal NEGATIVE [facility] Comment on above: Result Comment: Pres umptive positive bilirubin. Consider confirmation by serum bilirubin if clinically indicated. Performed By: #### 6 517, 71565, 5463 #### [facility] [place] [address] Cotton Grader: Sunday Chu MD Color (U) DARK YELLOW Normal YELLOW [facility] Comment on above: Performed By: #### 6 517, 96516, 5463 #### [facility] [place] [address] Cotton Grader: Sunday Chu MD Glucose Ql (U) Negative Normal NEGATIVE [facility] Comment on above: Performed By: #### 6 517, 98311, 5463 #### [facility] [place] [address] Cotton Grader: Sunday Chu MD HYALINE CAST 6-10 Abnormal NONE SEEN [facility] Comment on above: Performed By: #### 6 517, 78199, 5463 #### [facility] [place] [address] Cotton Grader: Sunday Chu MD Ketones Ql (U) 1+ Abnormal NEGATIVE [facility] Comment on above: Performed By: #### 6 517, 43449, 5463 #### [facility] [place] [address] Cotton Grader: Sunday Chu MD Leukocyte esterase Test strip Ql (U) TRACE Abnormal NEGATIVE [facility] Comment on above: Performed By: #### 6 517, 17505, 5463 #### [facility] [place] [address] Cotton Grader: Sunday Chu MD Nitrite Ql (U) Negative Normal NEGATIVE [facility] Comment on above: Performed By: #### 6 517, 17205, 5463 #### [facility] [place] [address] Cotton Grader: Sunday Chu MD OCCULT BLOOD Negative Normal NEGATIVE [facility] Comment on above: Performed By: #### 6 517, 00001, 5463 #### [facility] [place] [address] Cotton Grader: Sunday Chu MD pH (U) 5.5 [pH] Normal 5.0-8.0 [facility] Comment on above: Performed By: #### 6 517, 11415, 5463 #### [facility] [place] [address] Cotton Grader: Sunday Chu MD Protein Ql (U) 1+ Abnormal NEGATIVE [facility] Comment on above: Performed By: #### 6 517, 19546, 5463 #### [facility] [place] [address] Cotton Grader: Sunday Chu MD RBC 0-2 Normal < OR = 2 [facility] Comment on above: Performed By: #### 6 517, 91464, 5463 #### [facility] [place] [address] Cotton Grader: Sunday Chu MD Specific gravity (U) [Rel density] 1.025 Normal 1.001-1.03 5 [facility] Comment on above: Performed By: #### 6 517, 83511, 5463 #### [facility] of [place] [address] [place] [address] Rd, [address] [place] [address] Cotton Grader: Sunday Chu MD SQUAMOUS EPITHELIAL CELLS 0-5 Normal < OR = 5 [facility] Comment on above: Performed By: #### 6 517, 31108, 5463 #### [facility] [address] [place], [place] [address]e Rd, [address] [place] [address] Cotton Grader: Sunday Chu MD WBC NONE SEEN Normal < OR = 5 [facility] Comment on above: Performed By: #### 6 517, 88629, 5463 #### [facility] of [address], [address] [place] [address] Cotton Grader: Sunday Chu MD Office Visit (Cardiology)on 11-25-2022 [...] interrogation unremarkable. Cardiovascular history: September 2022 at [facility] seen in consult Dr. Dietrich d/t 2:1 atrial flutter and Mobitz II. Inpatient MPI: no ischemia, fixed inferior defect 18% artifact vs. [place] September 17, 2022 implant Pearson 2272 dual [...] 1 tabl (more content not included)... Normal Xanodyne Tobacco Screening.on 023 Fall risk assessment b) One or more fall s in the last year [facility] 250 DO Work Phone: Tobacco use status CPHS b) No [facility] 250 DO Work Phone: Radiologyon 11-17-2022 XR Chest 2 Views Normal [facility] 250 DO Work Phone: XR chest 2V*on 11-17-2022 XR chest 2V* [facility] Main [place] [address] [place] [address] XRay Report Signed Patient: Tadeo Thomas MR#: [id number] 0 : 1945 Acct:[id number] Age/Sex: 77 / M ADM Date: 11/17/22 Loc: [facility] Room: Type: [facility] Attending Dr: Ketan Lucero MD Copies to: [...] Moustapha Cervantes M.D.11/17/2022 4:17 PM Dictation Location: [place] [address] Transcribed By: [facility] 11/17/221616 Dictated By: Moustapha Cervantes DO 11/17/221615 Signed By: 11/17/221616 [facility] Echocardiogramon 11-12-[address], [address] [place] [address] TRANSTHORACIC ECHOCARDIOGRAM REPORT Patient Name: TADEO THOMAS Reading Physician: [id number] Samra Garza MD Study Date: 11/12/2022 Referring Physician: OLGA WYATT MRN/PID: [id number] PCP: Aracelis Pedroza MD Accession/Order#: [id number] Department Location: [facility] Date of : 1945 Fellow: Gender: M Nurse: Admit Date: Collect On Delivery Clerk: Isabella Howard RD, [facility] Height: 167.64 cm CC Report to: Weight: 76.20 kg Study Type: Echocardiogram BSA: 1.86 m2 Blood Pressure: 112 /56 mmHg Diagnosis/ICD: R93.1-Abnormal findings on diagnostic imaging of heart and coronary circulation; Z95.0-Presence of cardiac pacemaker; I48.92-Unspecified atrial flutter Indication: Abnormal EKG, Diabetes, HTN, Hyperlipidemia, Former Smoker, Overweight Procedure/CPT: Echo Limited-40511 Study Detail: The following Echo studies were [...] Normal Ranges: LVOT Diameter: 2.50 cm (1.8-2.4cm) [id number] Samra Garza MD Electronically signed on 11/12/2022 at 10:16:16 PM Final Normal [facility] Office Visit (Cardiology)on 10-21-2022 Follow-up visit Diagnoses/Problems [...] contact the office if new symptoms arise. [facility] after testing [facility] f/u: 'things seem to have settled down' TADEO THOMAS is being seen for atrial flutter. Patient presents to the office today accompanied by . This is initial in clinic follow-up at [facility]. Throughout the summer patient reports dizziness and shortness of breath and frequent falls. PCP completed a Holter monitor and echocardiogram. The Holter monitor showed 2-1 atrial flutter and patient was instructed to present to local hospital. September 2022 at [facility] seen in consult Dr. Dietrich d/t 2:1 atrial flutter and Mobitz II. Outpatient echo: EF 55, LVH mild Inpatient MPI: no ischemia, fixed inferior defect 18% artifact vs. [place] September 17, 2022 impant Pearson 2272 dual [...] surgery His (more content not included)... Normal Xanodyne Tobacco Screening.on 023 Adult depression screening assessment No [facility] 250 DO Work Phone: Fall risk assessment b) One or more fall s in the last year [facility] [place] 250 DO Work Phone: Tobacco use status CPHS b) No [facility] 250 DO Work Phone: Radiologyon 09-25-2022 XR Chest 2 Views Normal [facility] [place] 250 DO Work Phone: XR chest 2V*on 09-25-2022 XR chest 2V* [facility] Main [place] [address] [place] [address] XRay Report Signed Patient: Tadeo Thomas MR#: [id number] 0 : 1945 Acct:[id number] Age/Sex: 77 / M ADM Date: 09/25/22 Loc: XD Room: Type: [facility] Attending Dr: Ketan Lucero MD Copies to: [...] Germaine Storey M.D.09/25/2022 3:00 PM Dictation Location: [facility]12 Transcribed By: [facility] 09/25/22 1500 Dictated By: Germaine Storey MD 09/25/22 1459 Signed By: 09/25/22 1500 Normal [facility] CA holter monitor recordingo n 09-18-2022 CA holter monitor recording [facility] Main [place] [id number] Holter Monitor Report Signed Patient: Tadeo Thomas MR#: [id number] 0 : 1945 Acct:[id number] Age/Sex: 77 / M ADM Date: 09/11/22 Loc: Room: Type: [facility] Attending Dr: Aracelis Pedroza MD Copies to: Fior Saleem MD, [facility] Aracelis Pedroza MD Ordering Provider: Aracelis Pedroza [...] 09/18/22 2019 Dictated By: Fior Saleem MD, [facility] 09/18/22 1718 Signed By: 09/21/22 0911 [facility] Glucose Glucometer (BldC) [M ass/Vol]Ordered By: Charlie Varner on 09-18-2022 Glucose [Mass/Vol] 206 mg/dL [facility] Comment on above: Random Glucose Refer ence Range is dependent on time and content of last meal. Glucose of more than 200 mg/dL in a nonstressed, ambulatory subject supports the diagnosis of Diabetes Mellitus. Glucose Poct Glucometerson 0 09-18-2022 Commemt1 Glu2: Cleaned Meter [facility] Comment on above: Result Comment: PERF ORMED BY: [facility] [address] [place] [address] PATHOLOGIST CCU NURSE KASSANDRA STACK M.D. Performed By: #### G LULS ####Point of Care testing, Glucose [Mass/Vol] 355 mg/dL [facility] Comment on above: Result Comment: [place] Glucose Reference Range is dependent on time and content of last meal. Glucose of more than 200 mg/dL in a nonstressed, ambulatory subject supports the diagnosis of Diabetes Mellitus. Performed By: #### G LULS ####Point of Care testing, Commemt1 Glu2: Cleaned Meter Normal [facility] Comment on above: Result Comment: PERF ORMED BY: [place] [id number] PATHOLOGIST CCU NURSE KASSANDRA STACK M.D. Performed By: #### G LULS ####Point of Care testing, Glucose [Mass/Vol] 206 mg/dL Normal [facility] Comment on above: Result Comment: [place] Glucose Reference Range is dependent on time and content of last meal. Glucose of more than 200 mg/dL in a nonstressed, ambulatory subject supports the diagnosis of Diabetes Mellitus. Performed By: #### G LULS ####Point of Care testing, No Panel InformationOrdered By: Charlie Varner on 09-18-2022 Bedside Glucose Comment Glu2: cleaned meter [facility] STR cardiac stress/lexiscano n 09-18-2022 STR cardiac stress/lexiscan [facility] Main [place] [address] [place] [address] Cardiac Stress Test Signed Patient: Tadeo Thomas MR#: [id number] 0 : 1945 Acct:[id number] Age/Sex: 77 / M ADM Date: 09/14/22 Loc: Room: [address] [place] [address] Type: DIS IN Attending Dr: Charlie Varner MD Copies to: Fior Saleem MD, [facility] Tae Dietrich MD Ordering Provider: Tae Dietrich [...] [place]ISS[place] 09/18/222043 Dictated By: Fior Saleem MD, [facility] 09/18/22 1748 Signed By: 09/21/22 0911 [facility] XR chest 2V*on 09-18-2022 XR chest 2V* [facility] Main [place] [address] [place] [address] XRay Report Signed Patient: Tadeo Thomas MR#: [id number] 0 : 1945 Acct:[id number] Age/Sex: 77 / M ADM Date: 09/14/22 Loc: Room: [address] [place] [address] Type: ADM IN Attending Dr: Charlie Varner [...] Moustapha Cervantes M.D.09/18/2022 10:39 AM Dictation Location: [place] [address] Transcribed By: [facility] 09/18/22 1039 Dictated By: Moustapha Cervantes DO 09/18/22 1038 Signed By: 09/18/22 1039 [facility] Activated partial thrombopla stin time (aPTT) in platelet poor plasma by coagulation aOrdered By: Tae Dietrich on 09-17-2022 aPTT Coag (PPP) [Time] 26.8 s 25.1-36.5 [facility] Basic Metabolic Panelon 07-0 Anion gap [Moles/Vol] 10.1 mmol/L Normal 6.0-15.0 [facility] Comment on above: Performed By: #### B MP, CBC, PT, PTT ####[place] [address] [place] [id number] [facility] Calcium [Mass/Vol] 8.9 mg/dL Normal 8.6-10.3 [facility] Comment on above: Performed By: #### B MP, CBC, PT, PTT ####[place] [id number] [facility] Chloride [Moles/Vol] 101 mmol/L Normal 98-107 [facility] Comment on above: Performed By: #### B MP, CBC, PT, PTT ####[place] [id number] [facility] CO2 [Moles/Vol] 30.0 mmol/L Normal 21.0-31.0 [facility] Comment on above: Performed By: #### B MP, CBC, PT, PTT ####[place] [id number] [facility] Creatinine [Mass/Vol] 0.87 mg/dL Normal 0.70-1.30 [facility] Comment on above: Performed By: #### B MP, CBC, PT, PTT ####[place] [id number] [facility] Creatinine Clr Calc Pharmacy 67.70 Normal [facility] Comment on above: Result Comment: PERF ORMED BY: [facility] [address] [place] [id number] PATHOLOGIST CCU NURSE KASSANDRA STACK M.D. Performed By: #### B MP, CBC, PT, PTT ####[place] [id number] [facility] GFR/1.73 sq M.predicted MDRD (S/P/Bld) [Vol rate/Area] mL/min/{1.73_m2} Normal [facility] Comment on above: Performed By: #### B MP, CBC, PT, PTT ####[facility] Glucose [Mass/Vol] 234 mg/dL High 70-100 [facility] Comment on above: Result Comment: [place] Glucose Reference Range is dependent on time and content of last meal. Glucose of more than 200 mg/dL in a nonstressed, ambulatory subject supports the diagnosis of Diabetes Mellitus. ADA recommended reference range Performed By: #### B MP, CBC, PT, PTT ####[facility] Alu[address] Potassium [Moles/Vol] 4.1 mmol/L Normal 3.5-5.1 [facility] Comment on above: Performed By: #### B MP, CBC, PT, PTT ####[address] Sodium [Moles/Vol] 137 mmol/L Normal 136-145 [facility] Comment on above: Performed By: #### B MP, CBC, PT, PTT ####[place] [address] [place] [id number] [facility] Urea nitrogen [Mass/Vol] 13 mg/dL Normal 7-25 [facility] Comment on above: Performed By: #### B MP, CBC, PT, PTT ####[facility] Basophils Auto (Bld) [#/Vol] Ordered By: Tae Dietrich on 09-17-2022 Basophils (Bld) [#/Vol] 0.0 10*3/uL 0.0-0.2 [facility] Basophils/100 WBC Auto (Bld) Ordered By: Tae Dietrich on 09-17-2022 Basophils/100 WBC (Bld) 0.2 % . [facility] Calcium [Mass/volume] in Ser um or PlasmaOrdered By: Tae Dietrich on 09-17-2022 Calcium [Mass/Vol] 8.9 mg/dL 8.6-10.3 [facility] Carbon dioxide, total [Moles /volume] in Serum or PlasmaOrdered By: Tae Dietrich on 09-17-2022 CO2 [Moles/Vol] 30.0 mmol/L 21.0-31.0 [facility] Chloride [Moles/volume] in S estela or PlasmaOrdered By: Tae Dietrich on 09-17-2022 Chloride [Moles/Vol] 101 mmol/L 98-107 [facility] Complete Blood Count Auto Di ffon 09-17-2022 Basophils (Bld) [#/Vol] 0.0 10*3/uL Normal 0.0-0.2 [facility] Comment on above: Result Comment: PERF ORMED BY: [facility] [address] [place] [address] PATHOLOGIST CCU NURSE KASSANDRA STACK M.D. Performed By: #### B MP, CBC, PT, PTT ####[address] Basophils/100 WBC (Bld) 0.2 % Normal . [facility] Comment on above: Performed By: #### B MP, CBC, PT, PTT ####[place] [address] [address] Eosinophils (Bld) [#/Vol] 0.0 10*3/uL Normal 0.0-0.45 [facility] Comment on above: Performed By: #### B MP, CBC, PT, PTT ####[address] Eosinophils/100 WBC (Bld) 0.3 % Normal . [facility] Comment on above: Performed By: #### B MP, CBC, PT, PTT ####[place] [id number] [facility] Erythrocyte distribution width (RBC) [Ratio] 13.5 % Normal 12.0-14.8 [facility] Comment on above: Performed By: #### B MP, CBC, PT, PTT ####[place] [id number] [facility] Hematocrit (Bld) [Volume fraction] 37.9 % Low 38.8-50.0 [facility] Comment on above: Performed By: #### B MP, CBC, PT, PTT ####[address] Hemoglobin (Bld) [Mass/Vol] 13.1 g/dL Normal 13.0-17.0 [facility] Comment on above: Performed By: #### B MP, CBC, PT, PTT ####[address] Lymphocytes (Bld) [#/Vol] 4.5 10*3/uL Normal 1.00-4.8 [facility] Comment on above: Performed By: #### B MP, CBC, PT, PTT ####[address] Lymphocytes/100 WBC (Bld) 43.7 % Normal . [facility] Comment on above: Performed By: #### B MP, CBC, PT, PTT ####[address] MCH (RBC) [Entitic mass] 34.1 pg Normal 27.5-35.2 [facility] Comment on above: Performed By: #### B MP, CBC, PT, PTT ####[address] MCV (RBC) [Entitic vol] 98.9 fL Normal 83.5-101 [facility] Comment on above: Performed By: #### B MP, CBC, PT, PTT ####[address] Mean Corpuscular HGB Conc 34.5 g/dL Normal 32.5-35.6 [facility] Comment on above: Performed By: #### B MP, CBC, PT, PTT ####[address] Monocytes (Bld) [#/Vol] 0.6 10*3/uL Normal 0.0-0.8 [facility] Comment on above: Performed By: #### B MP, CBC, PT, PTT ####[place] [address] [place] [id number] [facility] Monocytes/100 WBC (Bld) 5.4 % Normal . [facility] Comment on above: Performed By: #### B MP, CBC, PT, PTT ####[place] [id number] [facility] Neutrophils (Bld) [#/Vol] 5.2 10*3/uL Normal 1.8-7.7 [facility] Comment on above: Performed By: #### B MP, CBC, PT, PTT ####[place] [id number] [facility] Neutrophils/100 WBC (Bld) 50.4 % Normal . [facility] Comment on above: Performed By: #### B MP, CBC, PT, PTT ####[address] NRBC% 0.5 /100{WBC} Normal 0-0.5 [facility] Comment on above: Performed By: #### B MP, CBC, PT, PTT ####[place] [id number] [facility] Platelet mean volume (Bld) [Entitic vol] 8.5 fL Normal 6.6-10.1 [facility] Comment on above: Performed By: #### B MP, CBC, PT, PTT ####[place] [id number] [facility] Platelets (Bld) [#/Vol] 213 10*3/uL Normal 150-450 [facility] Comment on above: Performed By: #### B MP, CBC, PT, PTT ####[place] [id number] [facility] RBC (Bld) [#/Vol] 3.83 10*6/uL Low 3.90-5.60 [facility] Comment on above: Performed By: #### B MP, CBC, PT, PTT ####[place] [id number] [facility] WBC (Bld) [#/Vol] 10.3 10*3/uL Normal 4.1-10.5 [facility] Comment on above: Performed By: #### B MP, CBC, PT, PTT ####[facility] [id number] Creatinine [Mass/volume] in Serum or PlasmaOrdered By: Tae Dietrich on 09-17-2022 Creatinine [Mass/Vol] 0.87 mg/dL 0.70-1.30 [facility] ECG 12 lead ECGon 09-17-2022 ECG 12 lead ECG [facility] Main [place] [address] [place] [address] Electrocardiograph Report Signed Patient: Tadeo Thomas MR#: [id number] 0 : 1945 Acct:[id number] Age/Sex: 77 / M ADM Date: 09/14/22 Loc: Room: [address] [place] [address] Type: ADM IN Attending Dr: Charlie Varner [...] By Moustapha Thakkar DO 09/17 1310 Normal [facility] Eosinophils Auto (Bld) [#/Vo l]Ordered By: Tae Dietrich on 09-17-2022 Eosinophils (Bld) [#/Vol] 0.0 10*3/uL 0.0-0.45 [facility] Eosinophils/100 WBC Auto (Bl d)Ordered By: Tae Dietrich on 09-17-2022 Eosinophils/100 WBC (Bld) 0.3 % . [facility] Erythrocyte distribution wid th Auto (RBC) [Ratio]Ordered By: Tae Dietrich on 09-17-2022 Erythrocyte distribution width (RBC) [Ratio] 13.5 % 12.0-14.8 [facility] Glucose Poct Glucometerson 0 09-17-2022 Glucose [Mass/Vol] 188 mg/dL Normal [facility] Comment on above: Result Comment: [facility] Glucose Reference Range is dependent on time and content of last meal. Glucose of more than 200 mg/dL in a nonstressed, ambulatory subject supports the diagnosis of Diabetes Mellitus. PERFORMED BY: [address] [place] [id number] PATHOLOGIST CCU NURSE KASSANDRA STACK M.D. Performed By: #### G LULS ####Point of Care testing, Glucose [Mass/Vol] 236 mg/dL Normal [facility] Comment on above: Result Comment: [facility] Glucose Reference Range is dependent on time and content of last meal. Glucose of more than 200 mg/dL in a nonstressed, ambulatory subject supports the diagnosis of Diabetes Mellitus. PERFORMED BY: [address] [place] [id number] PATHOLOGIST CCU NURSE KASSANDRA STACK M.D. Performed By: #### G LULS ####Point of Care testing, Glucose [Mass/Vol] 260 mg/dL Normal [facility] Comment on above: Result Comment: [facility] Glucose Reference Range is dependent on time and content of last meal. Glucose of more than 200 mg/dL in a nonstressed, ambulatory subject supports the diagnosis of Diabetes Mellitus. PERFORMED BY: [address] [place] [id number] PATHOLOGIST CCU NURSE KASSANDRA STACK M.D. Performed By: #### G LULS ####Point of Care testing, Glucose [Mass/volume] in Ser um or PlasmaOrdered By: Tae Dietrich on 09-17-2022 Glucose [Mass/Vol] 234 mg/dL 70-100 [facility] Comment on above: ADA recommended refe rence rangeRandom Glucose Reference Range is dependent on time and content of last meal. Glucose of more than 200 mg/dL in a nonstressed, ambulatory subject supports the diagnosis of Diabetes Mellitus. Hematocrit Auto (Bld) [Volum e fraction]Ordered By: Tae Dietrich on 09-17-2022 Hematocrit (Bld) [Volume fraction] 37.9 % 38.8-50.0 [facility] Hemoglobin [Mass/volume] in BloodOrdered By: Tae Dietrich on 09-17-2022 Hemoglobin (Bld) [Mass/Vol] 13.1 g/dL 13.0-17.0 [facility] Laboratory - CoagulationOrde red By: Tae Dietrich on 09-17-2022 PT Coag (PPP) [Time] 12.3 s 9.0-12.9 [facility] Leukocytes [#/volume] correc ale for nucleated erythrocytes in Blood by Automated counOrdered By: Tae Dietrich on 09-17-2022 WBC corrected for nucl RBC Auto (Bld) [#/Vol] 10.3 10*3/uL 4.1-10.5 [facility] Lymphocytes Auto (Bld) [#/Vo l]Ordered By: Tae Dietrich on 09-17-2022 Lymphocytes (Bld) [#/Vol] 4.5 10*3/uL 1.00-4.8 [facility] Lymphocytes/100 WBC Auto (Bl d)Ordered By: Tae Dietrich on 09-17-2022 Lymphocytes/100 WBC (Bld) 43.7 % . [facility] MCH Auto (RBC) [Entitic mass ]Ordered By: Tae Dietrich on 09-17-2022 MCH (RBC) [Entitic mass] 34.1 pg 27.5-35.2 [facility] MCHC Auto (RBC) [Mass/Vol]Or dered By: Tae Dietrich on 09-17-2022 MCHC (RBC) [Mass/Vol] 34.5 g/dL 32.5-35.6 [facility] MCV Auto (RBC) [Entitic vol] Ordered By: Tae Dietrich on 09-17-2022 MCV (RBC) [Entitic vol] 98.9 fL 83.5-101 [facility] Monocytes Auto (Bld) [#/Vol] Ordered By: Tae Dietrich on 09-17-2022 Monocytes (Bld) [#/Vol] 0.6 10*3/uL 0.0-0.8 [facility] Monocytes/100 WBC Auto (Bld) Ordered By: Tae Dietrich on 09-17-2022 Monocytes/100 WBC (Bld) 5.4 % . [facility] NM sukhwinder perf SPECT rest stron 09-17-2022 NM sukhwinder perf SPECT rest str [facility] [place] [address] Nuclear Medicine Report Signed Patient: Tadeo Thomas MR#: [id number] 0 : 1945 Acct:[id number] Age/Sex: 77 / M ADM Date: 09/14/22 Loc: Room: [address] [place] [address] Type: ADM IN Attending Dr: Charlie Varner MD Copies to: MD Fior Escalera MD, [facility] Tae Dietrich MD Ordering Provider: Tae Dietrich [...] 09/17/22 2016 Dictated By: Fior Saleem MD, [facility] 09/17/22 1751 Signed By: 09/18/22 1520 Normal [facility] Neutrophils Auto (Bld) [#/Vo l]Ordered By: Tae Dietrich on 09-17-2022 Neutrophils (Bld) [#/Vol] 5.2 10*3/uL 1.8-7.7 [facility] Neutrophils/100 WBC Auto (Bl d)Ordered By: Tae Dietrich on 09-17-2022 Neutrophils/100 WBC (Bld) 50.4 % . [facility] No Panel InformationOrdered By: Tae Dietrich on 09-17-2022 Estimated GFR (CKD-EPI) > 60.0 mL/Min [facility] Pharmacy Creatinine Clearance (Chem 67.70 [facility] Nucleated erythrocytes [Pres ence] in Blood by Automated countOrdered By: Tae Dietrich on 09-17-2022 Nucleated RBC Auto Ql (Bld) 0.5 /100{WBC} 0-0.5 [facility] Partial Thromboplastin Timeo n 09-17-2022 aPTT Coag (Bld) [Time] 26.8 s Normal 25.1-36.5 [facility] Comment on above: Result Comment: PERF ORMED BY: [facility] [address] [facility] [place] [address] PATHOLOGIST CCU NURSE KASSANDRA STACK M.D. Performed By: #### B MP, CBC, PT, PTT ####[facility] Platelet mean volume Auto (B ld) [Entitic vol]Ordered By: Tae Dietrich on 09-17-2022 Platelet mean volume (Bld) [Entitic vol] 8.5 fL 6.6-10.1 [facility] Platelet poor plasma interna tional normalized ratio (INR) by coagulation assay (relatOrdered By: Tae Dietrich on 09-17-2022 INR Coag (PPP) [Relative time] 1.1 {INR} [facility] Comment on above: INR Therapeutic Rang e [...] 09-17-2022 Platelets (Bld) [#/Vol] 213 10*3/uL 150-450 [facility] Potassium [Moles/volume] in Serum or PlasmaOrdered By: Tae Dietrich on 09-17-2022 Potassium [Moles/Vol] 4.1 mmol/L 3.5-5.1 [facility] Prothrombin Time INRon 09-17 INR Coag (PPP) [Relative time] 1.1 {INR} Normal [facility] Comment on above: Result Comment: INR Therapeutic [...] By: #### B MP, CBC, PT, PTT ####[facility] [id number] PT Coag (PPP) [Time] 12.3 s Normal 9.0-12.9 [facility] Comment on above: Performed By: #### B MP, CBC, PT, PTT ####[facility] [id number] [place] [id number] [facility] RBC Auto (Bld) [#/Vol]Ordere d By: Tae Dietrich on 09-17-2022 RBC (Bld) [#/Vol] 3.83 10*6/uL 3.90-5.60 [facility] Serum or plasma anion gap de terminationOrdered By: Tae Dietrich on 09-17-2022 Anion gap [Moles/Vol] 10.1 mmol/L 6.0-15.0 [facility] Sodium [Moles/volume] in Ser um or PlasmaOrdered By: Tae Dietrich on 09-17-2022 Sodium [Moles/Vol] 137 mmol/L 136-145 [facility] Urea nitrogen [Mass/volume] in Serum or PlasmaOrdered By: Tae Dietrich on 09-17-2022 Urea nitrogen [Mass/Vol] 13 mg/dL 7-25 [facility] WBC Auto (Bld) [#/Vol]Ordere d By: Tae Dietrich on 09-17-2022 WBC (Bld) [#/Vol] 10.3 10*3/uL 4.1-10.5 [facility] XR chest 1V portableon 09-17 XR chest 1V portable [facility] [place] [address] XRay Report Signed Patient: Tadeo Thomas MR#: [id number] 0 : 1945 Acct:[id number] Age/Sex: 77 / M ADM Date: 09/14/22 Loc: Room: [address] [place] [address] Type: ADM IN Attending Dr: Charlie Varner [...] Germaine Storey M.D.09/17/2022 5:22 PM Dictation Location: [facility]- Transcribed By: GARCÍA 09/17/22 172 Dictated By: Germaine Storey MD 09/17/221720 Signed By: 09/17/22 172 [facility] Basic Metabolic Panelon 07-0 Anion gap [Moles/Vol] 8.0 mmol/L Normal 6.0-15.0 [facility] Comment on above: Performed By: #### B MP, MG, CBC ####[facility] [id number] [place] [address] [facility] Calcium [Mass/Vol] 8.3 mg/dL Low 8.6-10.3 [facility] Comment on above: Performed By: #### B MP, MG, CBC ####[address] [place] [place] [address] [facility] Chloride [Moles/Vol] 105 mmol/L Normal 98-107 [facility] Comment on above: Performed By: #### B MP, MG, CBC ####[facility] [id number] [place] [address] [facility] CO2 [Moles/Vol] 29.8 mmol/L Normal 21.0-31.0 [facility] Comment on above: Performed By: #### B MP, MG, CBC ####[address] [address] [facility] Creatinine [Mass/Vol] 0.86 mg/dL Normal 0.70-1.30 [facility] Comment on above: Performed By: #### B MP, MG, CBC ####[facility] [id number] [place] [address] [place] Creatinine Clr Calc Pharmacy 68.49 [facility] Comment on above: Performed By: #### B MP, MG, CBC ####[facility] [id number] [place] [address] [place] GFR/1.73 sq M.predicted MDRD (S/P/Bld) [Vol rate/Area] mL/min/{1.73_m2} [facility] Comment on above: Performed By: #### B MP, MG, CBC ####[facility] [id number] [place] [address] [place] Glucose [Mass/Vol] 152 mg/dL High 70-100 [facility] Comment on above: Result Comment: [place] Glucose Reference Range is dependent on time and content of last meal. Glucose of more than 200 mg/dL in a nonstressed, ambulatory subject supports the diagnosis of Diabetes Mellitus. ADA recommended reference range Performed By: #### B MP, MG, CBC ####[facility] [place] [id number] [facility] Potassium [Moles/Vol] 3.8 mmol/L Normal 3.5-5.1 [facility] Comment on above: Performed By: #### B MP, MG, CBC ####[address] Sodium [Moles/Vol] 139 mmol/L Normal 136-145 [facility] Comment on above: Performed By: #### B MP, MG, CBC ####[place] [id number] [facility] Urea nitrogen [Mass/Vol] 16 mg/dL Normal 7-25 [facility] Comment on above: Performed By: #### B MP, MG, CBC ####[place] [address] [place] [id number] [facility] Complete Blood Count Auto Di ffon 09-15-2022 Basophils (Bld) [#/Vol] 0.0 10*3/uL Normal 0.0-0.2 [facility] Comment on above: Result Comment: PERF ORMED BY: [facility] [address] [place] [address] PATHOLOGIST CCU NURSE KASSANDRA STACK M.D. Performed By: #### B MP, MG, CBC ####[place] [address] [place] [id number] [facility] Basophils/100 WBC (Bld) 0.3 % Normal . [facility] Comment on above: Performed By: #### B MP, MG, CBC ####[place] [place] [id number] [facility] Eosinophils (Bld) [#/Vol] 0.0 10*3/uL Normal 0.0-0.45 [facility] Comment on above: Performed By: #### B MP, MG, CBC ####[place] [id number] [facility] Eosinophils/100 WBC (Bld) 0.5 % Normal . [facility] Comment on above: Performed By: #### B MP, MG, CBC ####[place] [id number] [facility] Erythrocyte distribution width (RBC) [Ratio] 13.6 % Normal 12.0-14.8 [facility] Comment on above: Performed By: #### B MP, MG, CBC ####[address] Hematocrit (Bld) [Volume fraction] 30.2 % Low 38.8-50.0 [facility] Comment on above: Performed By: #### B MP, MG, CBC ####[address] Hemoglobin (Bld) [Mass/Vol] 10.7 g/dL Low 13.0-17.0 [facility] Comment on above: Performed By: #### B MP, MG, CBC ####[address] Lymphocytes (Bld) [#/Vol] 3.9 10*3/uL Normal 1.00-4.8 [facility] Comment on above: Performed By: #### B MP, MG, CBC ####[place] [id number] [facility] Lymphocytes/100 WBC (Bld) 49.0 % Normal . [facility] Comment on above: Performed By: #### B MP, MG, CBC ####[place] [id number] [facility] MCH (RBC) [Entitic mass] 34.9 pg Normal 27.5-35.2 [facility] Comment on above: Performed By: #### B MP, MG, CBC ####[place] [id number] [facility] MCV (RBC) [Entitic vol] 98.7 fL Normal 83.5-101 [facility] Comment on above: Performed By: #### B MP, MG, CBC ####[address] Mean Corpuscular HGB Conc 35.3 g/dL Normal 32.5-35.6 [facility] Comment on above: Performed By: #### B MP, MG, CBC ####[address] Monocytes (Bld) [#/Vol] 0.4 10*3/uL Normal 0.0-0.8 [facility] Comment on above: Performed By: #### B MP, MG, CBC ####[address] Monocytes/100 WBC (Bld) 5.2 % Normal . [facility] Comment on above: Performed By: #### B MP, MG, CBC ####[address] Neutrophils (Bld) [#/Vol] 3.6 10*3/uL Normal 1.8-7.7 [facility] Comment on above: Performed By: #### B MP, MG, CBC ####[address] Neutrophils/100 WBC (Bld) 45.0 % Normal . [facility] Comment on above: Performed By: #### B MP, MG, CBC ####[address] NRBC% 0.4 /100{WBC} Normal 0-0.5 [facility] Comment on above: Performed By: #### B MP, MG, CBC ####[address] Platelet mean volume (Bld) [Entitic vol] 8.0 fL Normal 6.6-10.1 [facility] Comment on above: Performed By: #### B MP, MG, CBC ####[facility] [address] [place] [address] [place] Platelets (Bld) [#/Vol] 158 10*3/uL Significant change down 150-450 [facility] Comment on above: Performed By: #### B MP, MG, CBC ####[facility] [id number] RBC (Bld) [#/Vol] 3.06 10*6/uL Low 3.90-5.60 [facility] Comment on above: Performed By: #### B MP, MG, CBC ####[facility] [id number] [place] [id number] [facility] WBC (Bld) [#/Vol] 8.0 10*3/uL Normal 4.1-10.5 [facility] Comment on above: Performed By: #### B MP, MG, CBC ####[facility] ECG 12 lead ECGon 09-15-2022 ECG 12 lead ECG [facility] [place] [address] Electrocardiograph Report Signed Patient: Tadeo Thomas MR#: [id number] 0 : 1945 Acct:[id number] Age/Sex: 77 / M ADM Date: 09/14/22 Loc: Room: [address] [place] [address] Type: ADM IN Attending Dr: Charlie Varner [...] By Moustapha Thakkar DO 09/16 0907 Normal [facility] Magnesiumon 09-15-2022 Magnesium [Mass/Vol] 1.5 mg/dL Low 1.9-2.7 [facility] Comment on above: Result Comment: PERF ORMED BY: [facility] [address] [place] [address] PATHOLOGIST CCU NURSE KASSANDRA STACK M.D. Performed By: #### B MP, MG, CBC ####[address] [place] [address] [facility] Magnesium [Mass/volume] in S estela or PlasmaOrdered By: Charlie Varner on 09-15-2022 Magnesium [Mass/Vol] 1.5 mg/dL 1.9-2.7 [facility] A1C with Estimated Average G luon 09-14-2022 Glucose [Mass/Vol] 180 mg/dL Normal [facility] Comment on above: Result Comment: PERF ORMED BY: [facility] [address] [place] [address] PATHOLOGIST CCU NURSE KASSANDRA STACK M.D. Performed By: #### A 1C [facility] eA ####[place] [address] [place] [id number] [facility] HbA1c (Bld) [Mass fraction] 7.9 % High 4.3-5.6 [facility] Comment on above: Result Comment: Incr eased risk for diabetes: 5.7 - 6.4 diabetes: >6.4 glycemic control for adults with diabetes: <7.0 Performed By: #### A 1C [facility] eA ####[address] [address] [facility] Activated partial thrombopla stin time (aPTT) in platelet poor plasma by coagulation aOrdered By: Uriah Wang on 09-14-2022 aPTT Coag (PPP) [Time] 31.4 s 25.1-36.5 [facility] Alanine aminotransferase [En zymatic activity/volume] in Serum or PlasmaOrdered By: Uriah Wang on 09-14-2022 ALT [Catalytic activity/Vol] 14 U/L 7-52 [facility] Albumin [Mass/volume] in Ser um or Plasma by Bromocresol green (BCG) dye binding methoOrdered By: Uriah Wang on 09-14-2022 Albumin BCG dye [Mass/Vol] 4.3 g/dL 3.5-5.7 [facility] Alkaline phosphatase [Enzyma tic activity/volume] in Serum or PlasmaOrdered By: Uriah Wang on 09-14-2022 ALP [Catalytic activity/Vol] 66 U/L 34-104 [facility] Aspartate aminotransferase [ Enzymatic activity/volume] in Serum or PlasmaOrdered By: Uriah Wang on 09-14-2022 AST [Catalytic activity/Vol] 15 U/L 13-39 [facility] B-Type Natriuretic Peptideon 09-14-2022 Natriuretic peptide B (Bld) [Mass/Vol] 239.0 pg/mL High 5-100 [facility] Comment on above: Result Comment: PERF ORMED BY: [facility] [address] [place] [address] PATHOLOGIST CCU NURSE KASSANDRA STACK M.D. Performed By: #### C MP, PT, BNP, MG, CK, HS TROP, CBC, PTT ####[facility] [id number] [address] Basophils Auto (Bld) [#/Vol] Ordered By: Uriah Wang on 09-14-2022 Basophils (Bld) [#/Vol] 0.0 10*3/uL 0.0-0.2 [facility] Basophils/100 WBC Auto (Bld) Ordered By: Uriah Wang on 09-14-2022 Basophils/100 WBC (Bld) 0.3 % . [facility] Bilirubin.total [Mass/volume ] in Serum or PlasmaOrdered By: Uriah Wang on 09-14-2022 Bilirubin [Mass/Vol] 0.4 mg/dL 0.3-1.0 [facility] Calcium [Mass/volume] in Ser um or PlasmaOrdered By: Uriah Wang on 09-14-2022 Calcium [Mass/Vol] 9.3 mg/dL 8.6-10.3 [facility] Carbon dioxide, total [Moles /volume] in Serum or PlasmaOrdered By: Uriah Wang on 09-14-2022 CO2 [Moles/Vol] 27.6 mmol/L 21.0-31.0 [facility] Chloride [Moles/volume] in S estela or PlasmaOrdered By: Uriah Wnag on 09-14-2022 Chloride [Moles/Vol] 103 mmol/L 98-107 [facility] Complete Blood Count Auto Di ffon 09-14-2022 Basophils (Bld) [#/Vol] 0.0 10*3/uL Normal 0.0-0.2 [facility] Comment on above: Result Comment: PERF ORMED BY: [facility] [address] [place] [address] PATHOLOGIST CCU NURSE KASSANDRA STACK M.D. Performed By: #### C MP, PT, BNP, MG, CK, HS TROP, CBC, PTT ####[address] Basophils/100 WBC (Bld) 0.3 % Normal . [facility] Comment on above: Performed By: #### C MP, PT, BNP, MG, CK, HS TROP, CBC, PTT ####[address] Eosinophils (Bld) [#/Vol] 0.1 10*3/uL Normal 0.0-0.45 [facility] Comment on above: Performed By: #### C MP, PT, BNP, MG, CK, HS TROP, CBC, PTT ####[address] Eosinophils/100 WBC (Bld) 0.5 % Normal . [facility] Comment on above: Performed By: #### C MP, PT, BNP, MG, CK, HS TROP, CBC, PTT ####[address] Erythrocyte distribution width (RBC) [Ratio] 14.0 % Normal 12.0-14.8 [facility] Comment on above: Performed By: #### C MP, PT, BNP, MG, CK, HS TROP, CBC, PTT ####[address] Hematocrit (Bld) [Volume fraction] 36.9 % Low 38.8-50.0 [facility] Comment on above: Performed By: #### C MP, PT, BNP, MG, CK, HS TROP, CBC, PTT ####[address] Hemoglobin (Bld) [Mass/Vol] 12.8 g/dL Low 13.0-17.0 [facility] Comment on above: Performed By: #### C MP, PT, BNP, MG, CK, HS TROP, CBC, PTT ####[address] Lymphocytes (Bld) [#/Vol] 4.2 10*3/uL Normal 1.00-4.8 [facility] Comment on above: Performed By: #### C MP, PT, BNP, MG, CK, HS TROP, CBC, PTT ####[address] Lymphocytes/100 WBC (Bld) 39.9 % Normal . [facility] Comment on above: Performed By: #### C MP, PT, BNP, MG, CK, HS TROP, CBC, PTT ####[address] MCH (RBC) [Entitic mass] 34.7 pg Normal 27.5-35.2 [facility] Comment on above: Performed By: #### C MP, PT, BNP, MG, CK, HS TROP, CBC, PTT ####[address] MCV (RBC) [Entitic vol] 100.0 fL Normal 83.5-101 [facility] Comment on above: Performed By: #### C MP, PT, BNP, MG, CK, HS TROP, CBC, PTT ####[address] Mean Corpuscular HGB Conc 34.7 g/dL Normal 32.5-35.6 [facility] Comment on above: Performed By: #### C MP, PT, BNP, MG, CK, HS TROP, CBC, PTT ####[address] Monocytes (Bld) [#/Vol] 0.5 10*3/uL Normal 0.0-0.8 [facility] Comment on above: Performed By: #### C MP, PT, BNP, MG, CK, HS TROP, CBC, PTT ####[address] Monocytes/100 WBC (Bld) 17.48 % Normal 0.00-20.00 [facility] Comment on above: Performed By: #### C MP, PT, BNP, MG, CK, HS TROP, CBC, PTT ####[address] Monocytes/100 WBC (Bld) 4.5 % Normal . [facility] Comment on above: Performed By: #### C MP, PT, BNP, MG, CK, HS TROP, CBC, PTT ####[address] Neutrophils (Bld) [#/Vol] 5.8 10*3/uL Normal 1.8-7.7 [facility] Comment on above: Performed By: #### C MP, PT, BNP, MG, CK, HS TROP, CBC, PTT ####[address] Neutrophils/100 WBC (Bld) 54.8 % Normal . [facility] Comment on above: Performed By: #### C MP, PT, BNP, MG, CK, HS TROP, CBC, PTT ####[address] NRBC% 0.2 /100{WBC} Normal 0-0.5 [facility] Comment on above: Performed By: #### C MP, PT, BNP, MG, CK, HS TROP, CBC, PTT ####[address] Platelet mean volume (Bld) [Entitic vol] 8.2 fL Normal 6.6-10.1 [facility] Comment on above: Performed By: #### C MP, PT, BNP, MG, CK, HS TROP, CBC, PTT ####[place] [id number] [facility] Platelets (Bld) [#/Vol] 228 10*3/uL Normal 150-450 [facility] Comment on above: Performed By: #### C MP, PT, BNP, MG, CK, HS TROP, CBC, PTT ####[address] RBC (Bld) [#/Vol] 3.69 10*6/uL Low 3.90-5.60 [facility] Comment on above: Performed By: #### C MP, PT, BNP, MG, CK, HS TROP, CBC, PTT ####[address] WBC (Bld) [#/Vol] 10.6 10*3/uL High 4.1-10.5 [facility] Comment on above: Performed By: #### C MP, PT, BNP, MG, CK, HS TROP, CBC, PTT ####[address] Comprehensive Metabolic Pane christian 09-14-2022 Albumin [Mass/Vol] 4.3 g/dL Normal 3.5-5.7 [facility] Comment on above: Performed By: #### C MP, PT, BNP, MG, CK, HS TROP, CBC, PTT ####[address] Albumin/Globulin [Mass ratio] 1.4 {ratio} Normal [facility] Comment on above: Performed By: #### C MP, PT, BNP, MG, CK, HS TROP, CBC, PTT ####[address] ALP [Catalytic activity/Vol] 66 U/L Normal 34-104 [facility] Comment on above: Performed By: #### C MP, PT, BNP, MG, CK, HS TROP, CBC, PTT ####[address] ALT [Catalytic activity/Vol] 14 U/L Normal 7-52 [facility] Comment on above: Performed By: #### C MP, PT, BNP, MG, CK, HS TROP, CBC, PTT ####[address] Anion gap [Moles/Vol] 12.5 mmol/L Normal 6.0-15.0 [facility] Comment on above: Performed By: #### C MP, PT, BNP, MG, CK, HS TROP, CBC, PTT ####[address] AST [Catalytic activity/Vol] 15 U/L Normal 13-39 [facility] Comment on above: Performed By: #### C MP, PT, BNP, MG, CK, HS TROP, CBC, PTT ####[address] Bilirubin [Mass/Vol] 0.4 mg/dL Normal 0.3-1.0 [facility] Comment on above: Performed By: #### C MP, PT, BNP, MG, CK, HS TROP, CBC, PTT ####[address] Calcium [Mass/Vol] 9.3 mg/dL Normal 8.6-10.3 [facility] Comment on above: Performed By: #### C MP, PT, BNP, MG, CK, HS TROP, CBC, PTT ####[address] Chloride [Moles/Vol] 103 mmol/L Normal 98-107 [facility] Comment on above: Performed By: #### C MP, PT, BNP, MG, CK, HS TROP, CBC, PTT ####[address] [place] [address] [place] CO2 [Moles/Vol] 27.6 mmol/L Normal 21.0-31.0 [facility] Comment on above: Performed By: #### C MP, PT, BNP, MG, CK, HS TROP, CBC, PTT ####[address] Creatinine [Mass/Vol] 1.05 mg/dL Normal 0.70-1.30 [facility] Comment on above: Performed By: #### C MP, PT, BNP, MG, CK, HS TROP, CBC, PTT ####[address] Creatinine Clr Calc Pharmacy 60.89 [facility] Comment on above: Performed By: #### C MP, PT, BNP, MG, CK, HS TROP, CBC, PTT ####[address] GFR/1.73 sq M.predicted MDRD (S/P/Bld) [Vol rate/Area] mL/min/{1.73_m2} [facility] Comment on above: Performed By: #### C MP, PT, BNP, MG, CK, HS TROP, CBC, PTT ####[address] Globulin (S) [Mass/Vol] 3.0 g/dL [facility] Comment on above: Performed By: #### C MP, PT, BNP, MG, CK, HS TROP, CBC, PTT ####[address] Glucose [Mass/Vol] 204 mg/dL High 70-100 [facility] Comment on above: Result Comment: [place] Glucose Reference Range is dependent on time and content of last meal. Glucose of more than 200 mg/dL in a nonstressed, ambulatory subject supports the diagnosis of Diabetes Mellitus. ADA recommended reference range Performed By: #### C MP, PT, BNP, MG, CK, HS TROP, CBC, PTT ####[address] Potassium [Moles/Vol] 4.1 mmol/L Normal 3.5-5.1 [facility] Comment on above: Performed By: #### C MP, PT, BNP, MG, CK, HS TROP, CBC, PTT ####[place] [id number] Protein [Mass/Vol] 7.3 g/dL Normal 6.4-8.9 [facility] Comment on above: Performed By: #### C MP, PT, BNP, MG, CK, HS TROP, CBC, PTT ####[place] [id number] [place] [id number] [facility] Sodium [Moles/Vol] 139 mmol/L Normal 136-145 [facility] Comment on above: Performed By: #### C MP, PT, BNP, MG, CK, HS TROP, CBC, PTT ####[address] Urea nitrogen [Mass/Vol] 23 mg/dL Normal 7-25 [facility] Comment on above: Performed By: #### C MP, PT, BNP, MG, CK, HS TROP, CBC, PTT ####[place] [id number] [facility] Creatine Kinaseon 09-14-2022 CK [Catalytic activity/Vol] 100 U/L Normal [facility] Comment on above: Performed By: #### C MP, PT, BNP, MG, CK, HS TROP, CBC, PTT ####[place] [id number] [facility] Creatine kinase [Enzymatic a ctivity/volume] in Serum or PlasmaOrdered By: Uriah Wang on 09-14-2022 CK [Catalytic activity/Vol] 100 U/L [facility] Creatinine [Mass/volume] in Serum or PlasmaOrdered By: Uriah Wang on 09-14-2022 Creatinine [Mass/Vol] 1.05 mg/dL 0.70-1.30 [facility] ECG 12 lead ECGon 09-14-2022 ECG 12 lead ECG [facility] Main [place] [id number] Electrocardiograph Report Signed Patient: Tadeo Thomas MR#: [id number] 0 : 1945 Acct:[id number] Age/Sex: 77 / M ADM Date: 09/14/22 Loc: Room: [address] [place] [address] Type: ADM IN Attending Dr: Charlie Varner [...] 71 BPM Confirmed by URIAH WANG DO ([id number]) on 09/15/2022 2:06:13 AM Referred By: Electronically Signed By:URIAH WANG DO Transcribed By: MUS Signed By Uriah Wang DO 09/15 0206 [facility] ECG 12 lead ECG [place] [id number] Electrocardiograph Report Signed Patient: Tadeo Thomas MR#: [id number] 0 : 1945 Acct:[id number] Age/Sex: 77 / M ADM Date: 09/14/22 Loc: Room: [address] [place] [address] Type: ADM IN Attending Dr: Charlie Varner [...] ECGs available Confirmed by URIAH WANG DO ([id number]) on 09/15/2022 2:06:13 AM Referred By: Electronically Signed By:URIAH WANG DO Transcribed By: MUS Signed By Uriah Wang DO 09/15 0206 Normal [facility] Eosinophils Auto (Bld) [#/Vo l]Ordered By: Uriah Wang on 09-14-2022 Eosinophils (Bld) [#/Vol] 0.1 10*3/uL 0.0-0.45 [facility] Eosinophils/100 WBC Auto (Bl d)Ordered By: Uriah Wang on 09-14-2022 Eosinophils/100 WBC (Bld) 0.5 % . [facility] Erythrocyte distribution wid th Auto (RBC) [Ratio]Ordered By: Uriah Wang on 09-14-2022 Erythrocyte distribution width (RBC) [Ratio] 14.0 % 12.0-14.8 [facility] Globulin Calc (S) [Mass/Vol] Ordered By: Uriah Wang on 09-14-2022 Globulin (S) [Mass/Vol] 3.0 g/dL [facility] Glucose [Mass/volume] in Ser um or PlasmaOrdered By: Uriah Wang on 09-14-2022 Glucose [Mass/Vol] 204 mg/dL 70-100 [facility] Comment on above: ADA recommended refe [...] from glycated hemoglobin (Bld) [Mass/Vol] 180 mg/dL [facility] Hematocrit Auto (Bld) [Volum e fraction]Ordered By: Uriah Wang on 09-14-2022 Hematocrit (Bld) [Volume fraction] 36.9 % 38.8-50.0 [facility] Hemoglobin A1c percentageOrd ered By: Charlie Varner on 09-14-2022 HbA1c (Bld) [Mass fraction] 7.9 % 4.3-5.6 [facility] Comment on above: Increased risk for d iabetes: 5.7 - 6.4diabetes: >6.4glycemic control for adults with diabetes: <7.0 Hemoglobin [Mass/volume] in BloodOrdered By: Uriah Wang on 09-14-2022 Hemoglobin (Bld) [Mass/Vol] 12.8 g/dL 13.0-17.0 [facility] Laboratory - CoagulationOrde red By: Uriah Wang on 09-14-2022 PT Coag (PPP) [Time] 11.5 s 9.0-12.9 [facility] Leukocytes [#/volume] correc ale for nucleated erythrocytes in Blood by Automated counOrdered By: Uriah Wang on 09-14-2022 WBC corrected for nucl RBC Auto (Bld) [#/Vol] 10.6 10*3/uL 4.1-10.5 [facility] Lymphocytes Auto (Bld) [#/Vo l]Ordered By: Uriah Wang on 09-14-2022 Lymphocytes (Bld) [#/Vol] 4.2 10*3/uL 1.00-4.8 [facility] Lymphocytes/100 WBC Auto (Bl d)Ordered By: Uriah Wang on 09-14-2022 Lymphocytes/100 WBC (Bld) 39.9 % . [facility] MCH Auto (RBC) [Entitic mass ]Ordered By: Uriah Wang on 09-14-2022 MCH (RBC) [Entitic mass] 34.7 pg 27.5-35.2 [facility] MCHC Auto (RBC) [Mass/Vol]Or dered By: Uriah Wang on 09-14-2022 MCHC (RBC) [Mass/Vol] 34.7 g/dL 32.5-35.6 [facility] MCV Auto (RBC) [Entitic vol] Ordered By: Uriah Wang on 09-14-2022 MCV (RBC) [Entitic vol] 100.0 fL 83.5-101 [facility] Magnesiumon 09-14-2022 Magnesium [Mass/Vol] 1.4 mg/dL Low 1.9-2.7 [facility] Comment on above: Result Comment: PERF ORMED BY: [facility] [address] [place] [id number] PATHOLOGIST CCU NURSE KASSANDRA STACK M.D. Performed By: #### C MP, PT, BNP, MG, CK, HS TROP, CBC, PTT ####[facility] [id number] [place] [address] [facility] Magnesium [Mass/volume] in S estela or PlasmaOrdered By: Uriah Wang on 09-14-2022 Magnesium [Mass/Vol] 1.4 mg/dL 1.9-2.7 [facility] Monocyte distribution width [Entitic volume] in Blood by AutomatedOrdered By: Uriah Wang on 09-14-2022 Monocyte distribution width Auto (Bld) [Entitic vol] 17.48 % 0.00-20.00 [facility] Monocytes Auto (Bld) [#/Vol] Ordered By: Uriah Wang on 09-14-2022 Monocytes (Bld) [#/Vol] 0.5 10*3/uL 0.0-0.8 [facility] Monocytes/100 WBC Auto (Bld) Ordered By: Uriah Wang on 09-14-2022 Monocytes/100 WBC (Bld) 4.5 % . [facility] Natriuretic peptide B [Mass/ Vol]Ordered By: Uriah Wang on 09-14-2022 Natriuretic peptide B (Bld) [Mass/Vol] 239.0 pg/mL 5-100 [facility] Neutrophils Auto (Bld) [#/Vo l]Ordered By: Uriah Wang on 09-14-2022 Neutrophils (Bld) [#/Vol] 5.8 10*3/uL 1.8-7.7 [facility] Neutrophils/100 WBC Auto (Bl d)Ordered By: Uriah Wang on 09-14-2022 Neutrophils/100 WBC (Bld) 54.8 % . [facility] No Panel InformationOrdered By: Uriah Wang on 09-14-2022 Estimated GFR (CKD-EPI) > 60.0 mL/Min [facility] Creatinine Clearance (Chem 60.89 [facility] Nucleated erythrocytes [Pres ence] in Blood by Automated countOrdered By: Uriah Wang on 09-14-2022 Nucleated RBC Auto Ql (Bld) 0.2 /100{WBC} 0-0.5 [facility] Partial Thromboplastin Timeo n 09-14-2022 aPTT Coag (Bld) [Time] 31.4 s Normal 25.1-36.5 [facility] Comment on above: Result Comment: PERF ORMED BY: [facility] [address] [place] [id number] PATHOLOGIST CCU NURSE KASSANDRA STACK M.D. Performed By: #### C MP, PT, BNP, MG, CK, HS TROP, CBC, PTT ####[facility] [id number] Platelet mean volume Auto (B ld) [Entitic vol]Ordered By: Uriah Wang on 09-14-2022 Platelet mean volume (Bld) [Entitic vol] 8.2 fL 6.6-10.1 [facility] Platelet poor plasma interna tional normalized ratio (INR) by coagulation assay (relatOrdered By: Uriah Wang on 09-14-2022 INR Coag (PPP) [Relative time] 1.0 {INR} [facility] Comment on above: INR Therapeutic Rang e [...] 09-14-2022 Platelets (Bld) [#/Vol] 228 10*3/uL 150-450 [facility] Potassium [Moles/volume] in Serum or PlasmaOrdered By: Uriah Wang on 09-14-2022 Potassium [Moles/Vol] 4.1 mmol/L 3.5-5.1 [facility] Protein [Mass/volume] in Ser um or PlasmaOrdered By: Uriah Wang on 09-14-2022 Protein [Mass/Vol] 7.3 g/dL 6.4-8.9 [facility] Prothrombin Time INRon 09-14 INR Coag (PPP) [Relative time] 1.0 {INR} Normal [facility] Comment on above: Result Comment: INR Therapeutic [...] BNP, MG, CK, HS TROP, CBC, PTT ####[place] [id number] [address] PT Coag (PPP) [Time] 11.5 s Normal 9.0-12.9 [facility] Comment on above: Performed By: #### C MP, PT, BNP, MG, CK, HS TROP, CBC, PTT ####[place] [id number] [address] RBC Auto (Bld) [#/Vol]Ordere d By: Uriah Wang on 09-14-2022 RBC (Bld) [#/Vol] 3.69 10*6/uL 3.90-5.60 [facility] Serum or plasma albumin/glob ulin mass ratioOrdered By: Uriah Wang on 09-14-2022 Albumin/Globulin [Mass ratio] 1.4 {ratio} [facility] Serum or plasma anion gap de terminationOrdered By: Uriah Wang on 09-14-2022 Anion gap [Moles/Vol] 12.5 mmol/L 6.0-15.0 [facility] Sodium [Moles/volume] in Ser um or PlasmaOrdered By: Uriah Wang on 09-14-2022 Sodium [Moles/Vol] 139 mmol/L 136-145 [facility] Troponin I High Sensitivityo n 09-14-2022 Troponin I High Sensitivity 14.5 pg/mL Normal 0.0-20.0 [facility] Comment on above: Result Comment: PERF ORMED BY: [place] [address] PATHOLOGIST CCU NURSE KASSANDRA STACK M.D. Performed By: #### C MP, PT, BNP, MG, CK, HS TROP, CBC, PTT ####[facility] [id number] Troponin I.cardiac [Mass/vol ume] in Serum or Plasma by Detection limit <= 0.01 ng/Ordered By: Uriah Wang on 09-14-2022 Troponin I.cardiac DL <= 0.01 ng/mL [Mass/Vol] 14.5 pg/mL 0.0-20.0 [facility] Urea nitrogen [Mass/volume] in Serum or PlasmaOrdered By: Uriah Wang on 09-14-2022 Urea nitrogen [Mass/Vol] 23 mg/dL 7-25 [facility] WBC Auto (Bld) [#/Vol]Ordere d By: Uriah Wang on 09-14-2022 WBC (Bld) [#/Vol] 10.6 10*3/uL 4.1-10.5 [facility] XR chest 1V portableon 09-14 XR chest 1V portable [facility] [place] [address] XRay Report Signed Patient: Tadeo Thomas MR#: [id number] 0 : 1945 Acct:[id number] Age/Sex: 77 / M ADM Date: 09/14/22 [...] Germaine Storey M.D.09/14/2022 5:42 PM Dictation Location: [place] [address] Transcribed By: [facility] 09/14/221741 Dictated By: Germaine Storey MD 09/14/221739 Signed By: 09/14/221741 [facility] echo transthoracicon [facility] echo transthoracic [facility] Main [place] [address] [place] [address] Echocardiogram Signed Patient: Tadeo Thomas MR#: [id number] 0 : 1945 Acct:[id number] Age/Sex: 77 / M ADM Date: 09/11/22 Loc: Room: Type: [facility] Attending Dr: Aracelis Pedroza MD Ordering Provider: Aracelis Pedroza MD Date of Service: 09/11/22/ [facility] echo transthoracic: ABNORMAL EKG Copies to: Fior Saleem [facility], [facility] Aracelis Pedroza MD BSA: 2.0 m2 BP: [...] At: 09/11/22919 Signed By: Fior Saleem [facility], [facility] 09/11/22 1449 [facility] Auth for Release of Medical Recordson 05-12-2021 Auth for Release of Medical Records [id number] Normal [facility] Complete Blood Counton 04-21 Erythrocyte distribution width (RBC) [Ratio] 13.1 % Normal 11.0-15.0 [facility] [employer] Comment on above: Performed By: #### L IPD, CBC, FERR, CMP, FE Prof #### [facility] [address] [place], [place] [id number] Hematocrit (Bld) [Volume fraction] 38.9 % Normal 38.5-50.0 [facility] [employer] Comment on above: Performed By: #### L IPD, CBC, FERR, CMP, FE Prof #### [facility] [address] [place], [place] [id number] Hemoglobin (Bld) [Mass/Vol] 13.3 g/dL Normal 13.0-17.1 [facility] Comment on above: Performed By: #### L IPD, CBC, FERR, CMP, FE Prof #### [facility] [address] [place], [place] [id number] MCH (RBC) [Entitic mass] 34.5 pg High 27.0-33.0 [facility] Comment on above: Performed By: #### L IPD, CBC, FERR, CMP, FE Prof #### [facility] [address] [place], [place] [id number] MCHC (RBC) [Mass/Vol] 34.2 g/dL Normal 32.0-36.0 [facility] Comment on above: Performed By: #### L IPD, CBC, FERR, CMP, FE Prof #### [facility] [address] [place], [place] [id number] MCV (RBC) [Entitic vol] 101 fL High 80-100 [facility] Specialist Comment on above: Performed By: #### L IPD, CBC, FERR, CMP, FE Prof #### [facility] [address] [place], [place] [id number] Platelet mean volume (Bld) [Entitic vol] 10.00 fL Normal 7.50-12.50 [facility] Specialist Comment on above: Performed By: #### L IPD, CBC, FERR, CMP, FE Prof #### [facility] [address] [place], [place] [id number] Platelets (Bld) [#/Vol] 183 10*3/uL Normal 140-400 [facility] Specialist Comment on above: Performed By: #### L IPD, CBC, FERR, CMP, FE Prof #### [facility] [address] [place], [place] [id number] RBC (Bld) [#/Vol] 3.86 10*6/uL Low 4.20-5.80 [facility] Comment on above: Performed By: #### L IPD, CBC, FERR, CMP, FE Prof #### [facility] [address] [place], [place] [id number] RDW-SD 48.6 fL Normal 37.0-50.0 [facility] [employer] Comment on above: Performed By: #### L IPD, CBC, FERR, CMP, FE Prof #### [facility] [address] [place], [place] [id number] WBC (Bld) [#/Vol] 8.9 10*3/uL Normal 3.8-11.0 Elsie dominguez [facility] [employer] Comment on above: Performed By: #### L IPD, CBC, FERR, CMP, FE Prof #### [facility] [address] [place], [place] [id number] [facility] Pane christian 04-21-2021 Albumin [Mass/Vol] 4.3 g/dL Normal 3.6-5.1 [facility] [employer] Comment on above: Performed By: #### L IPD, CBC, FERR, CMP, FE Prof #### [facility] [address] [place], [place] [id number] Albumin/Globulin [Mass ratio] 2.2 {ratio} Normal 1.0-2.5 [facility] [employer] Comment on above: Performed By: #### L IPD, CBC, FERR, CMP, FE Prof #### [facility] [address] [place], [place] [id number] ALP [Catalytic activity/Vol] 89 U/L Normal 40-129 [facility] Specialist Comment on above: Performed By: #### L IPD, CBC, FERR, CMP, FE Prof #### [facility] [address] [place], [place] [id number] ALT [Catalytic activity/Vol] 19 U/L Normal 9-46 [facility] Specialist Comment on above: Result Comment: 02/12 Female reference range changed. Performed By: #### L IPD, CBC, FERR, CMP, FE Prof #### [facility] [address] [place], [place] [id number] Anion gap [Moles/Vol] 18 mmol/L Normal 12-20 [facility] Comment on above: Result Comment: Effe ctive 03/20/2019 reference range changed. Performed By: #### L IPD, CBC, FERR, CMP, FE Prof #### [facility] [address] [place], [place] [id number] AST [Catalytic activity/Vol] 19 U/L Normal 10-40 [facility] Comment on above: Performed By: #### L IPD, CBC, FERR, CMP, FE Prof #### [facility] [address] [place], [place] [id number] Bilirubin [Mass/Vol] 0.32 mg/dL Normal 0.30-1.20 [facility] Comment on above: Performed By: #### L IPD, CBC, FERR, CMP, FE Prof #### [facility] [address] [place], [place] [id number] BUN/CREA 17 Ratio Normal 6-22 [facility] Comment on above: Performed By: #### L IPD, CBC, FERR, CMP, FE Prof #### [facility] [address] [place], [place] [id number] Calcium [Mass/Vol] 9.3 mg/dL Normal 8.6-10.2 [facility] Comment on above: Performed By: #### L IPD, CBC, FERR, CMP, FE Prof #### [facility] [address] [place], [place] [id number] Chloride [Moles/Vol] 104 mmol/L Normal 98-107 [facility] Comment on above: Performed By: #### L IPD, CBC, FERR, CMP, FE Prof #### [facility] [address] [place], [place] [id number] CO2 [Moles/Vol] 26 mmol/L Normal 20-31 [facility] Comment on above: Performed By: #### L IPD, CBC, FERR, CMP, FE Prof #### [facility] [address] [place], [place] [id number] Creatinine [Mass/Vol] 0.8 mg/dL Normal 0.7-1.4 [facility] Comment on above: Performed By: #### L IPD, CBC, FERR, CMP, FE Prof #### [facility] [address] [place], [place] [id number] eGFRAA 122 mL/min/1.73m2 Normal >60 [facility] Comment on above: Performed By: #### L IPD, CBC, FERR, CMP, FE Prof #### [facility] [address] [place], [place] [id number] eGFRNAA 101 mL/min/1.73m2 Normal >60 Thomas suzy [facility] [employer] Comment on above: Performed By: #### L IPD, CBC, FERR, CMP, FE Prof #### [facility] [address] [place], [place] [id number] Globulin (S) [Mass/Vol] 2.0 g/dL Normal 1.9-3.7 [facility] [employer] Comment on above: Performed By: #### L IPD, CBC, FERR, CMP, FE Prof #### [facility] [address] [place], [place] [id number] Glucose [Mass/Vol] 173 mg/dL High 65-99 [facility] [employer] [facility] Comment on above: Result Comment: For FASTING Glucose --- ADA reference ranges: Normal 65-99 mg/dl Prediabetes 100-125 Diabetes >/= 126 Performed By: #### L IPD, CBC, FERR, CMP, FE Prof #### [facility] [address] [place], [place] [id number] Potassium [Moles/Vol] 4.3 mmol/L Normal 3.5-5.5 [facility] Comment on above: Performed By: #### L IPD, CBC, FERR, CMP, FE Prof #### [facility] [address] [place], [place] [id number] Protein [Mass/Vol] 6.3 g/dL Normal 6.1-8.1 [facility] [employer] Comment on above: Performed By: #### L IPD, CBC, FERR, CMP, FE Prof #### [facility] [address] [place], [place] [id number] Sodium [Moles/Vol] 143 mmol/L Normal 135-146 [facility] [employer] Comment on above: Performed By: #### L IPD, CBC, FERR, CMP, FE Prof #### [facility] [address] [place], [place] [id number] Urea nitrogen [Mass/Vol] 13 mg/dL Normal 7-25 [facility] [employer] Comment on above: Performed By: #### L IPD, CBC, FERR, CMP, FE Prof #### [facility] [address] [place], [place] [id number] Ferritinon 04-21-2021 FERR 80.7 ng/mL Normal 30.0-400.0 [facility] Specialist Comment on above: Performed By: #### L IPD, CBC, FERR, CMP, FE Prof #### [facility] [address] [place], [place] [id number] Hemoglobin A1Con 04-21-2021 EAG 180.03 Normal [facility] Specialist Comment on above: Performed By: #### A 1C #### [facility] [address] [place], [place] [id number] HbA1c (Bld) [Mass fraction] 7.9 % High 4.0-6.0 [facility] [employer] Comment on above: Performed By: #### A 1C #### [facility] [address] [place], [place] [id number] Iron Profileon 04-21-2021 %FESAT 34 % Normal 15-60 [facility] Specialist Comment on above: Performed By: #### L IPD, CBC, FERR, CMP, FE Prof #### [facility] [address] [place], [place] [id number] FE 113 ug/dL Normal 50-180 [facility] [employer] Comment on above: Result Comment: Refe rence range change 01/29/2017. Prior reference range F 37-145 ug/dL, M 59-158 ug/dL. Performed By: #### L IPD, CBC, FERR, CMP, FE Prof #### [facility] [address] [place], [place] [id number] TIBC 332 ug/dL Normal 250-425 [facility] Specialist Comment on above: Performed By: #### L IPD, CBC, FERR, CMP, FE Prof #### [facility] [address] [place], [place] [id number] UIBC 219 ug/dL Normal 112-347 [facility] Specialist Comment on above: Performed By: #### L IPD, CBC, FERR, CMP, FE Prof #### [facility] [address] [place], [place] [id number] Lipid Panelon 04-21-2021 Cholesterol [Mass/Vol] 143 mg/dL Normal 125-200 [facility] on above: Result Comment: Low risk < 200mg/dL Borderline risk 201-239 mg/dl High risk > or equal to 240 Performed By: #### L IPD, CBC, FERR, CMP, FE Prof #### [facility] [address] [place], [place] [id number] Cholesterol in HDL [Mass/Vol] 50 mg/dL Normal >40 [facility] [employer] Comment on above: Result Comment: High Cardiovascular Risk HDL <40 mg/dL Low Cardiovascular Risk HDL > or equal to 60 mg/dl Performed By: #### L IPD, CBC, FERR, CMP, FE Prof #### [facility] [address] [place], [place] [id number] Cholesterol in LDL [Mass/Vol] 78 mg/dL Normal [facility] [employer] Comment on above: Result Comment: LDL ATP III CLASSIFICATION LDL less than 100 mg/dl Optimal LDL 100-129 mg/dl Near or above optimal LDL 130-159 Borderline high LDL 160-189 High LDL greater than 189 mg/dl Very High Performed By: #### L IPD, CBC, FERR, CMP, FE Prof #### [facility] [address] [place], [place] [id number] Cholesterol in VLDL [Mass/Vol] 15 mg/dL Normal [facility] [employer] Comment on above: Performed By: #### L IPD, CBC, FERR, CMP, FE Prof #### [facility] [address] [place], [place] [id number] Cholesterol.total/Chol esterol in HDL [Mass ratio] 3 {ratio} Normal [facility] Specialist Comment on above: Performed By: #### L IPD, CBC, FERR, CMP, FE Prof #### [facility] [address] [place], [place] [id number] Triglyceride [Mass/Vol] 73 mg/dL Normal 30-150 [facility] [employer] Comment on above: Result Comment: TRIG ATPIII CLASSIFICATIONS TRIG less than 150 mg/dl Normal TRIG 150-199 mg/dl Borderline High TRIG 200-500 mg/dl High TRIG greather than 500 mg/dl Very High Performed By: #### L IPD, CBC, FERR, CMP, FE Prof #### [facility] [address] [place], [place] [id number] Vitamin B12on 04-21-2021 Cobalamin (Vitamin B12) [Mass/Vol] 369 pg/mL Normal 211-946 [facility] [employer] Comment on above: Performed By: #### B 12 #### [facility] [address] [place], [place] [id number] MRI Brain w/o + w/on 021 MRI [...] by Chaim Goodrich on 02/25/2021 1101 Normal [facility] Specialist Basic Metabolic Panelon 12-0 Anion gap [Moles/Vol] 18 mmol/L Normal 12-20 [facility] Comment on above: Result Comment: Effe ctive 03/20/2019 reference range changed. Performed By: #### B MP #### [facility] [address] [place], [place] [id number] Calcium [Mass/Vol] 9.5 mg/dL Normal 8.6-10.2 [facility] Comment on above: Performed By: #### B MP #### [facility] [address] [place], [place] [id number] Chloride [Moles/Vol] 101 mmol/L Normal 98-107 [facility] Comment on above: Performed By: #### B MP #### [facility] [address] [place], [place] [id number] CO2 [Moles/Vol] 26 mmol/L Normal 20-31 [facility] Comment on above: Performed By: #### B MP #### [facility] [address] [place], [place] [id number] Creatinine [Mass/Vol] 0.7 mg/dL Normal 0.7-1.4 [facility] Comment on above: Performed By: #### B MP #### [facility] [address] [place], [place] [id number] eGFRAA 128 mL/min/1.73m2 Normal >60 [facility] Comment on above: Performed By: #### B MP #### [facility] [address] [place], [place] [id number] eGFRNAA 106 mL/min/1.73m2 Normal >60 [facility] Comment on above: Performed By: #### B MP #### [facility] [address] [place], [place] [id number] Glucose [Mass/Vol] 196 mg/dL High 65-99 [facility] Specialist Comment on above: Result Comment: For FASTING Glucose --- ADA reference ranges: Normal 65-99 mg/dl Prediabetes 100-125 Diabetes >/= 126 Performed By: #### B MP #### [facility] [address] [place], [place] [id number] Potassium [Moles/Vol] 4.2 mmol/L Normal 3.5-5.5 [facility] Comment on above: Performed By: #### B MP #### [facility] [address] [place], [place] [id number] Sodium [Moles/Vol] 141 mmol/L Normal 135-146 [facility] Specialist Comment on above: Performed By: #### B MP #### [facility] [address] [place], [place] [id number] Urea nitrogen [Mass/Vol] 13 mg/dL Normal 7-25 [facility] [employer] Comment on above: Performed By: #### B MP #### [facility] [address] [facility] [place] [id number] Vital Signs Date Time Vital Sign Value Performing Clinician Facility 03-01-2023 09:33-0500 Body height 170.2 cm Ketan Lucero MD Work Phone: [facility] 03-01-2023 09:33-0500 Body mass index (BMI) [Ratio] 23.96 kg/m2 Ketan Lucero MD Work Phone: [facility] 03-01-2023 09:33-0500 Body weight 69.4 kg Ketan Lucero MD Work Phone: [facility] 03-01-2023 09:33-0500 Diastolic blood pressure 50 mm[Hg] Ketan Lucero MD Work Phone: [facility] 03-01-2023 09:33-0500 Heart rate 62 /min Ketan Lucero MD Work Phone: [facility] 03-01-2023 09:33-0500 Systolic blood pressure 90 mm[Hg] Ketan Lucero MD Work Phone: [facility] 02-11-2023 14:06-0500 Body temperature 97.3 [degF] MD Aracelis Pedroza Work Phone: [facility] 02-11-2023 14:06-0500 Diastolic blood pressure 68 mm[Hg] MD Aracelis Pedroza Work Phone: [facility] 02-11-2023 14:06-0500 Heart rate 84 /min MD Aracelis Pedroza Work Phone: [facility] 02-11-2023 14:06-0500 Respiratory rate 18 /min MD Aracelis Pedroza Work Phone: [facility] 02-11-2023 14:06-0500 SaO2% (BldA) [Mass fraction] 97 % MD Aracelis Pedroza Work Phone: [facility] 02-11-2023 14:06-0500 Systolic blood pressure 122 mm[Hg] MD Aracelis Pedroza Work Phone: [facility] 02-11-2023 05:16-0500 Body weight 69 kg MD Aracelis Pedroza Work Phone: [facility] 02-10-2023 16:33-0500 Body height 172.72 cm MD Aracelis Pedroza Work Phone: [facility] 02-02-2023 14:19-0500 Diastolic blood pressure 73 mm[Hg] MD Aracelis Pedroza Work Phone: [facility] 02-02-2023 14:19-0500 Heart rate 78 /min MD Aracelis Pedroza Work Phone: [facility] 02-02-2023 14:19-0500 Respiratory rate 18 /min MD Aracelis Pedroza Work Phone: [facility] 02-02-2023 14:19-0500 SaO2% (BldA) [Mass fraction] 99 % MD Aracelis Pedroza Work Phone: [facility] 02-02-2023 14:19-0500 Systolic blood pressure 119 mm[Hg] MD Aracelis Pedroza Work Phone: [facility] 02-02-2023 11:50-0500 Body height 193.04 cm MD Aracelis Pedroza Work Phone: [facility] 02-02-2023 11:50-0500 Body temperature 98.1 [degF] MD Aracelis Pedroza Work Phone: [facility] 02-02-2023 11:50-0500 Body weight 74.1 kg MD Aracelis Pedroza Work Phone: [facility] 01-07-2023 11:15-0400 Body height 170.2 cm Ketan Lucero MD Work Phone: [facility] 01-07-2023 11:15-0400 Body mass index (BMI) [Ratio] 25.69 kg/m2 Ketan Lucero MD Work Phone: [facility] 01-07-2023 11:15-0400 Body weight 74.39 kg Ketan Lucero MD Work Phone: [facility] 01-07-2023 11:15-0400 Diastolic blood pressure 70 mm[Hg] Ketan Lucero MD Work Phone: [facility] 01-07-2023 11:15-0400 Heart rate 66 /min Ketan Lucero MD Work Phone: [facility] 01-07-2023 11:15-0400 Systolic blood pressure 118 mm[Hg] Ketan Lucero MD Work Phone: [facility] 11-25-2022 13:48-0400 Body height 167.64 cm Aracelis Pedroza Work Phone: [facility] 250 DO Work Phone: 11-25-2022 13:48-0400 Body mass index (BMI) [Ratio] 27.28 kg/m2 Aracelis Pedroza Work Phone: [facility] DO Work Phone: 11-25-2022 13:48-0400 Body surface area Derived from formula 1.86 m2 Aracelis Goodson Preston Work Phone: [facility] DO Work Phone: 11-25-2022 13:48-0400 Body weight 76.66 kg Aracelis Pedroza Work Phone: [facility] DO Work Phone: 11-25-2022 13:48-0400 Diastolic blood pressure 70 mm[Hg] Aracelis Pedroza Work Phone: [facility] DO Work Phone: 11-25-2022 13:48-0400 Heart rate 62 /min Aracelis Pedroza Work Phone: [facility] DO Work Phone: 11-25-2022 13:48-0400 Systolic blood pressure 146 mm[Hg] Aracelis Pedroza Work Phone: [facility] DO Work Phone: 10-21-2022 12:29-0400 Body height 167.64 cm Aracelis Pedroza Work Phone: [facility] DO Work Phone: 10-21-2022 12:29-0400 Body mass index (BMI) [Ratio] 27.12 kg/m2 Aracelis Pedroza Work Phone: [facility] DO Work Phone: 10-21-2022 12:29-0400 Body surface area Derived from formula 1.86 m2 Aracelis Pedroza Work Phone: [facility] DO Work Phone: 10-21-2022 12:29-0400 Body weight 76.2 kg Aracelis Pedroza Work Phone: [facility] DO Work Phone: 10-21-2022 12:29-0400 Diastolic blood pressure 60 mm[Hg] Aracelis Pedroza Work Phone: [facility] DO Work Phone: 10-21-2022 12:29-0400 Heart rate 65 /min Aracelis Pedroza Work Phone: [facility] DO Work Phone: 10-21-2022 12:29-0400 Systolic blood pressure 106 mm[Hg] Aracelis Pedroza Work Phone: [facility] DO Work Phone: 09-25-2022 15:44-0400 Body temperature 97.7 [degF] Aracelis Pedroza Work Phone: [facility] DO Work Phone: 09-25-2022 15:43-0400 Body weight 79.38 kg Aracelis Goodson Preston Work Phone: [facility] DO Work Phone: 09-25-2022 15:43-0400 Diastolic blood pressure 74 mm[Hg] Aracelis Pedroza Work Phone: [facility] DO Work Phone: 09-25-2022 15:43-0400 Heart rate 58 /min Aracelis Pedroza Work Phone: [facility] DO Work Phone: 09-25-2022 15:43-0400 Systolic blood pressure 122 mm[Hg] Aracelis Pedroza Work Phone: [facility] DO Work Phone: 09-18-2022 12:00-0400 Diastolic blood pressure 88 mm[Hg] MD Aracelis Pedroza Work Phone: [facility] 09-18-2022 12:00-0400 Heart rate 72 /min MD Aracelis Pedroza Work Phone: [facility] 09-18-2022 12:00-0400 Respiratory rate 18 /min MD Aracelis Pedroza Work Phone: [facility] 09-18-2022 12:00-0400 SaO2% (BldA) [Mass fraction] 100 % MD Aracelis Pedroza Work Phone: [facility] 09-18-2022 12:00-0400 Systolic blood pressure 134 mm[Hg] MD Aracelis Pedroza Work Phone: [facility] 09-18-2022 07:56-0400 Body temperature 97.9 [degF] MD Aracelis Pedroza Work Phone: [facility] 07-07-2023 06:00-0400 Body weight 79.1 kg MD Aracelis Pedroza Work Phone: [facility] 09-17-2022 19:56-0400 Body height 172.72 cm MD Aracelis Pedroza Work Phone: [facility] 09-17-2022 19:56-0400 Body mass index (BMI) [Ratio] 26.4 kg/m2 MD Aracelis Pedroza Work Phone: [facility] 09-17-2022 17:03-0400 Inhaled oxygen flow rate 6 L/min MD Aracelis Pedroza Work Phone: [facility] 09-14-2022 22:30-0400 Diastolic blood pressure 73 mm[Hg] MD Aracelis Pedroza Work Phone: [facility] 09-14-2022 22:30-0400 Heart rate 64 /min MD Aracelis Pedroza Work Phone: [facility] 09-14-2022 22:30-0400 Respiratory rate 18 /min MD Aracelis Pedroza Work Phone: [facility] 09-14-2022 22:30-0400 SaO2% (BldA) [Mass fraction] 96 % MD Aracelis Pedroza Work Phone: [facility] 09-14-2022 22:30-0400 Systolic blood pressure 130 mm[Hg] MD Aracelis Pedroza Work Phone: [facility] 09-14-2022 17:08-0400 Body height 172.72 cm MD Aracelis Pedroza Work Phone: [facility] 09-14-2022 17:08-0400 Body weight 83 kg MD Aracelis Pedroza Work Phone: [facility] 09-14-2022 17:02-0400 Body temperature 97.8 [degF] MD Aracelis Pedroza Work Phone: [facility] Encounters Encounter Date Encounter Type Care Provider Facility Start: 03-22-2023 End: 03-22-2023 ambulatory ARACELIS PEDROZA Not Available Start: 03-01-2023 End: 03-01-2023 ambulatory [facility] Ambulatory Start: 03-01-2023 End: 03-01-2023 Office outpatient visit 25 minutes Ketan Lucero MD Work Phone: [facility] Comment on above: Sick sinus syndrome due to sinoatrial node dysfunction (CMS/HCC) (Primary Dx); Atrial fibrillation, unspecified type (CMS/HCC); Paroxysmal atrial fibrillation (CMS/HCC); Pacemaker; Mixed hyperlipidemia; Hypertension, benign; Anticoagulated Start: 02-03-2023 End: 02-11-2023 Evaluation and management of inpatient Miguel Hinson Facility:[facility] Start: 02-03-2023 End: 02-11-2023 Evaluation and management of inpatient MD Aracelis Pedroza Work Phone: [facility] Work Phone: Start: 02-02-2023 Evaluation and manag ement of inpatient MD Aracelis Pedroza Work Phone: [facility] Work Phone: Start: 02-02-2023 observation encounter MD Gwyn Pedroza Work Phone: [facility] Work Phone: Start: 01-07-2023 End: 01-07-2023 ambulatory [facility] Ambulatory Start: 01-07-2023 End: 01-07-2023 Office outpatient visit 25 minutes Ketan Lucero MD Work Phone: [facility] Comment on above: Anticoagulated (Prim chivo Dx); Sick sinus syndrome due to sinoatrial node dysfunction (CMS/HCC); Pacemaker; Mixed hyperlipidemia; Hypertension, benign; Paroxysmal atrial fibrillation (CMS/HCC) Start: 12-04-2022 Chart Update Aracelis Pedroza Work Phone: [facility] 250 DO Work Phone: Start: 11-25-2022 Office outpatient vi sit 25 minutes Aracelis Pedroza Work Phone: [facility] DO Work Phone: Start: 11-25-2022 ambulatory Olga Wyatt Facility:1 [id number] Start: 11-17-2022 End: 11-17-[address] Aracelis Pedroza Facility:[id number] Start: 11-17-2022 End: 11-17-2022 Patient encounter procedure MD Aracelis Pedroza Work Phone: [facility]Pacemaker Check Start: 11-13-2022 Chart Update Aracelis Pedroza Work Phone: [facility] 600 DO Work Phone: Start: 11-12-2022 Telephone encounter Aracelis herrera Work Phone: [facility] 600 DO Work Phone: Start: 11-12-[address] Aracelis Pedroza Facility:[id number] Start: 10-21-2022 Office outpatient vi sit 25 minutes Aracelis Pedroza Work Phone: [facility] DO Work Phone: Start: 10-21-2022 Patient encounter procedure Aracelis Pedroza Work Phone: [facility] 250 DO Work Phone: Start: 10-21-2022 ambulatory Olga Wyatt Facility:1 [id number] Start: 09-30-2022 Patient encounter procedure Aracelis Pedroza Work Phone: [facility] 250 DO Work Phone: Start: 09-25-2022 Postop follow up vis it related to original px Aracelis Pedroza Work Phone: [facility] DO Work Phone: Start: 09-25-2022 End: 09-25-[address] Aracelis Pedroza Facility: Start: 09-21-2022 Telephone encounter Ketan Hall MD Work Phone: [facility] 250 DO Work Phone: Start: 09-18-[address] Aracelis Pedroza Facilit y:[id number] Start: 09-18-[address] Aracelis Pedroza Facilit y:[id number] Start: 09-18-[address] Aracelis Pedroza Facility:[id number] Start: 09-17-[address] Ketan Lucero II Facility:[id number] Start: 09-14-2022 End: 09-18-2022 Evaluation and management of inpatient Charlie Telly Facility:[facility] Start: 09-14-2022 End: 09-18-2022 Evaluation and management of inpatient MD Aracelis Pedroza Work Phone: [facility] Work Phone: Start: 09-11-2022 End: 09-11-2022 ambulatory Aracelis Pedroza Facility:[facility] Start: 09-11-2022 End: 09-11-2022 Patient encounter procedure MD Aracelis Pedroza Work Phone: [facility]-Electrodiagnostic s Work Phone: Start: 09-11-[address] Aracelis Pedroza Facilit y:[id number] Radionuclide heart s tudy normal Aracelis Pedroza Work Phone: [facility] 250 DO Work Phone: Procedures Date Procedure [...] DTaP/Tdap/Td Vaccines (2 - Td or Tdap) [facility] Start: 12-17-2023 Urine screening for protein Diabetes: Urine Protein Screening [facility] Start: 08-06-2023 End: 08-06-2023 Patient encounter procedure 08/06/2023 2:50 PM EDT Office Visit [address] [id number] Ketan Lucero MD [address] [place] [address] 2, [address] [place], [place] [id number] [facility] Start: 06-11-2023 End: 06-11-2023 Patient encounter procedure 06/11/2023 2:10 PM EDT Office Visit [address] [place] [id number] Ketan Lucero MD 3 [facility] 2, [address] [place] [address] [facility] Start: 04-23-2023 Glaucoma screening Diabetes: Retinopathy Screening [facility] Start: 04-08-2023 Hemoglobin A1c measurement Diabetes: Hemoglobin A1C [facility] Start: 02-11-2023 [facility] Start: 02-02-2023 Hospital admission [facility] Start: 02-02-2023 [facility] Start: 01-07-2023 FUV, Provider: Ketan Lucero, Status: Pen, Time: 10:50 AM FUV, Provider: Ketan Lucero, Status: Pen, Time: 10:50 AM [facility] 250 DO Work Phone: Start: 11-25-2022 FUV, Provider: Olga Landon, Status: Pen, Time: 1:30 PM FUV, Provider: Olga Landon, Status: Pen, Time: 1:30 PM [facility] 250 DO Work Phone: Start: 11-12-2022 ECHO, Provider: JOSE HHVI ULTRASOUND 01,[id number], Status: Pen, Time: 2:30 PM ECHO, Provider: JOSE [facility]VI ULTRASOUND 01,[id number], Status: Pen, Time: 2:30 PM [facility] 250 [facility] Work Phone: Start: 10-21-2022 FUV, Provider: Olga Landon, Status: Pen, Time: 12:30 PM FUV, Provider: Olga Landon, Status: Pen, Time: 12:30 PM [facility] 250 DO Work Phone: Start: 09-25-2022 ALEXA, Provider: CHRISTINE GRACIA RAZOR GRINDER 1,[id number], Status: Pen, Time: 11:00 AM ALEXA, Provider: CHRISTINE GRACIA RAZOR GRINDER 1,[id number], Status: Pen, Time: 11:00 AM [facility] 250 DO Work Phone: Start: 09-18-2022 [facility] Start: 09-17-2022 [facility] Start: 09-15-2022 Blood chemistry [facility] Start: 09-15-2022 [facility] Start: 09-14-2022 Hospital admission [facility] Start: 09-14-2022 Referral to sole splitter [facility] Start: 09-14-2022 [facility] Start: 09-14-2022 [facility] Start: 03-07-2022 COVID-19 Vaccine (4 - Pfizer series) COVID-19 Vaccine (4 - Pfizer series) [facility] Start: 01-14-1962 Hepatitis C screening Hepatitis C Screening [facility] Start: 01-14-1954 Diabetic foot examination Diabetes: Foot Exam [facility] Start: 01-14-1954 Glaucoma screening Diabetes: Retinopathy Screening [facility] Start: 1945 Hemoglobin A1c measurement Diabetes: Hemoglobin A1C [facility] Start: 1944 Lipid panel Lipid Panel [facility] Start: 1944 Medicare Annual Wellness Visit Medicare Annual Wellness Visit (AWV) [facility] Patient referral [facility] Work Phone: Immunizations Immunization Date Immunization Notes Care Provider Jerry fowler 11-24-2022 Fluad Quadrivalent 0 .5 ML Intramuscular Prefilled Syringe Aracelis Pedroza Work Phone: [facility] 01-10-2022 Pfizer COVID-19 Vac Bivalent 30 MCG/0.3ML Intramuscular Suspension Aracelis Pedroza Work Phone: [facility] DO Work Phone: 12-25-2021 influenza, high dose seasonal, preservative-free [facility]elis Pedro[facility] Work Phone: 12-18-2020 Pfizer-BioNTech COVID-19 Vacc 30 MCG/0.3ML Intramuscular Suspension Aracelis Pedroza Work Phone: [facility] 250 DO Work Phone: 05-03-2020 Pfizer-BioNTFluid Stone COVID-19 Vacc 30 MCG/0.3ML Intramuscular Suspension Aracelis Pedroza Work Phone: [facility] 250 DO Work Phone: 04-12-2020 Pfizer-BioNTech COVID-19 Vacc 30 MCG/0.3ML Intramuscular Suspension Aracelis Pedroza Work Phone: [place] [address] DO Work Phone: 11-29-2019 Seasonal trivalent influenza vaccine, adjuvanted, preservative free Aracelis Kellee Preston Work Phone: [facility] 10-18-2019 tetanus and diphther ia toxoids, adsorbed, preservative free, for adult use (5 Lf of tetanus toxoid and 2 Lf of diphtheria toxoid) Aracelis Kellee Preston Work Phone: [place] [address] DO Work Phone: 01-02-2019 Seasonal trivalent influenza vaccine, adjuvanted, preservative free Aracelis Kellee Preston Work Phone: [facility] 12-28-2018 zoster vaccine recombinant Aracelis Pedroza Work Phone: [place] [address] DO Work Phone: 09-21-2018 zoster vaccine recombinant Aracelis Pedroza Work Phone: [place] [address] DO Work Phone: 11-25-2017 Seasonal trivalent influenza vaccine, adjuvanted, preservative free Aracelis Kellee Preston Work Phone: [facility] 01-11-2017 influenza, injectabl e, quadrivalent, preservative free Aracelis Goodson Preston Work Phone: [place] [address] DO Work Phone: Payers Date Payer Category Payer Unknown [id number] 2022 Medicare [id number] 2022 Self-pay [id number] 2021 Medicare [id number] 2021 Unknown 1945 Unknown [id number] 2.16.8 [id number] 1944 Unknown [id number] 2.16. [id number] 1944 Unknown [id number] 2.16. 840.1.063540.3.579.2.356 1944 Unknown [id number] 2.16. 840.1.483974.3.579.2.356 1944 Unknown [id number] 2.16. 840.1.283254.3.579.2.356 1944 Unknown [id number] 2.16. 840.1.592592.3.579.2.356 1944 Unknown [id number] 2.16. 840.1.341949.3.579.2.356 1944 Unknown [id number] 2.16. 840.1.608739.3.579.2.356 1944 Unknown [id number] 2.16. 840.1.784746.3.579.2.356 1944 Unknown [id number] 2.16. 840.1.739656.3.579.2.356 1944 Unknown [id number] 2.16.8 40.1.525233.3.579.2.1244 1944 Unknown [id number] 2.16.8 40.1.873627.3.579.2.1244 1944 Unknown [id number] 2.16.840 .1.194878.3.579.2.1259 Unknown [id number] Unknown [id number] 2.16.8 40.1.577313.3.579.2.531 Unknown [id number] 2.16.8 40.1.456221.3.579.2.531 Unknown [id number] 2.16.8 40.1.065362.3.579.2.531 Unknown [id number] 2.16.8 40.1.872670.3.579.2.531 Unknown [id number] 2.16.8 40.1.571116.3.579.2.531 Social History Date Type Detail Facility Tobacco smoking stat [facility] Unknown if ever smoked [facility] Start: 1945 Sex Assigned At Male F [facility] Start: 09-14-[address] [facility] Never smoked tobacco (finding) [facility] Start: 09-17-2022 End: 01-07-2023 Tobacco smoking status TXIS Ex-smoker (finding) [facility] Start: 01-07-2023 End: 03-01-2023 Consumes alcohol occasionally Consumes alcohol occasionally [facility] 250 DO Work Phone: Comment on above: coffee 1 cup daily p op couple daily; quit in the 80's; End: 03-15-1982 History of tobacco use Current smoker [facility] Work Phone: End: 03-15-1982 History of tobacco use Cigarette Smoker [facility] Work Phone: Start: 01-07-2023 Tobacco use and exposure Smokeless tobacco non-user [facility] Work Phone: Start: 01-07-2023 End: 03-01-2023 Alcohol intake Current drinker of alcohol (finding) [facility] Work Phone: Start: 01-07-2023 End: 03-01-2023 Tobacco use panel [facility] Work Phone: Start: 01-07-2023 Alcohol Comment occassionally [facility] Work Phone: Start: 1945 Sex Assigned At Not on file [facility] Work Phone: Start: 12-28-2022 End: 03-01-2023 Exposure to SARS-CoV-2 (event) Not sure [facility] Start: 03-01-2023 Alcohol Comment rarely [facility] Work Phone: Medical Equipment Procedure Code Equipment Code Equipment Origin al Text Equipment Identifier Dates Insertion, pacemaker Endocardial pacing lead [id number] FDA Start: 09-17-2022 Insertion, pacemaker Endocardial pacing lead [id number] FDA Start: 09-17-2022 Insertion, pacemaker Dual-chamber implantable pacemaker, rate-responsive [id number] FDA Start: 09-17-2022 Goals Date Patient Goal Desired Activity /State Functional Status Date Assessment Result Facility 02-11-2023 Functional status Patient is Pro gressing Toward Baseline [facility] Work Phone: 09-18-2022 Functional status Patient at Baseline [facility] Work Phone: 09-14-2022 Functional status Patient at Baseline [facility] Work Phone: Mental Status Date Assessment Result Facility 02-11-2023 Cognitive function Cognitive Sta tus Patient at Baseline [facility] Work Phone: 09-18-2022 Cognitive function Cognitive Sta tus Patient at Baseline [facility] Work Phone: 09-14-2022 Cognitive function Cognitive Sta tus Patient at Baseline [facility] Work Phone: Clinical Notes 09-14-2022 to [...] complaint or complication. documented in this encounter [facility] Work Phone: 03-01-2023 Instructions Oumou Jacobs CMA [...] Prevention Education Given documented in this encounter [facility] Work Phone: 02-10-2023 Progress note Note Date/Time February 10, 2023 3:24pm [facility] [address] [place] [address] Hospitalist Progress Note Signed Patient: Tadeo Thomas MR#: [id number] : 1945 Acct:[id number] Age/Sex: 78 / M Adm Date: 3 Loc: Room: [address] [place] [address] Type: ADM IN Attending Dr: Miguel Hinson [...] <Electronically signed by Miguel Hinson MD> 02/10/23 1525 [facility] Work Phone: 1(570) 376-964311-28-2023 Progress note Author Miguel Hinson [facility] February 09, 2023 12:48pm Note Date/Time February 09, 2023 12:48pm [facility] [address] [place] [address] Hospitalist Progress Note Signed Patient: Tadeo Thomas MR#: [id number] : 1945 Acct:[id number] Age/Sex: 78 / M Adm Date: 3 Loc: 3T Room: [address] [place] [address] Type: ADM IN Attending Dr: Miguel Hinson [...] <Electronically signed by Miguel Hinson MD> 02/09/23 2592 [facility] Work Phone: 1(489) 355-631011-27-2023 Progress note Author Miguel Hinson [facility] February 08, 2023 2:07pm Note Date/Time February 08, 2023 2:07pm [facility] [address] [place] [address] Hospitalist Progress Note Signed Patient: Tadeo Thomas MR#: [id number] : 1945 Acct:[id number] Age/Sex: 78 / M Adm Date: 3 Loc: Room: [address] [place] [address] Type: ADM IN Attending Dr: Miguel Hinson [...] <Electronically signed by Miguel Hinson MD> 02/08/23 2705 [facility] Work Phone: 1(724) 764-881911-26-2023 Progress note Author Miguel Hinson [facility] February 07, 2023 11:46am Note Date/Time February 07, 2023 11:45am [facility] [address] [place] [address] Hospitalist Progress Note Signed Patient: Tadeo Thomas MR#: [id number] : 1945 Acct:[id number] Age/Sex: 78 / M Adm Date: 3 Loc: 3T Room: [address] [place] [address] Type: ADM IN Attending Dr: Miguel Hinson [...] <Electronically signed by Miguel Hinson MD> 02/07/[address] [place] [address] Ctr Work Phone: 1(893) 672-154411-25-2023 Progress note Author Miguel Hinson [facility] February 06, 2023 12:57pm Note Date/Time February 06, 2023 12:42pm [facility] [address] [place] [address] Hospitalist Progress Note Signed Patient: Tadeo Thomas MR#: [id number] : 1945 Acct:[id number] Age/Sex: 78 / M Adm Date: 3 Loc: Room: [address] [place] [address] Type: ADM IN Attending Dr: Miguel Hinson [...] otherwise unremarkable. And it was negative. Beta [facility] was slightly elevated. Digoxin level was negative. [...] signed by Miguel Hinson MD> 02/06/23 1257 [facility] Work Phone: 1(988) 366-479611-24-2023 Progress note Author Jennifer Cruz [facility] February 05, 2023 12:39pm Note Date/Time February 05, 2023 12:39pm [facility] [address] [place] [address] Hospitalist Progress Note Signed Patient: Tadeo Thomas MR#: [id number] : 1945 Acct:[id number] Age/Sex: 78 / M Adm Date: 3 Loc: 3T Room: [address] [place] [address] Type: ADM IN Attending Dr: Jennifer Cruz [...] otherwise unremarkable. And it was negative. Beta [facility] was slightly elevated. Digoxin level was negative. [...] otherwise unremarkable. And it was negative. Beta [facility] was slightly elevated. Digoxin level was negative. [...] signed by Jennifer Cruz MD> 02/05/23 1239 [facility] Work Phone: 1([phone] 630-586211-24-2023 Progress note Author Samra Garza [facility] February 05, 2023 12:16pm Note Date/Time February 05, 2023 12:16pm [facility] [address] [place] [address] Cardiology Progress Note Signed Patient: Tadeo Thomas MR#: [id number] : 1945 Acct:[id number] Age/Sex: 78 / M Adm Date: 3 Loc: Room: [address] [place] [address] Type: ADM IN Attending Dr: Jennifer Cruz [...] <Electronically signed by MD Samra Garza> 02/05/23 [facility] Work Phone: [phone]) 566-473411-23-2023 Progress note Author Samra Garza [facility] February 04, 2023 11:52am Note Date/Time February 04, 2023 11:52am [facility] [address] [place] [address] Cardiology Progress Note Signed Patient: Tadeo Thomas MR#: [id number] : 1945 Acct:[id number] Age/Sex: 78 / M Adm Date: 11/22/2 3 Loc: 3T Room: 3G5700-4 Type: ADM IN Attending Dr: Jennifer Cruz [...] signed by MD Samra Garza> 02/04/23 1152 [facility] Work Phone: [phone]) 873-406211-23-2023 Progress note Author Jennifer Cruz [facility] February 04, 2023 9:54am Note Date/Time February 04, 2023 9:54am [facility] [address] [place], [place] [id number] Hospitalist Progress Note Signed Patient: Tadeo Thomas MR#: [id number] : 1945 Acct:[id number] Age/Sex: 78 / M Adm Date: 3 Loc: 3T Room: [address] [place] [address] Type: ADM IN Attending Dr: Jennifer Cruz [...] otherwise unremarkable. And it was negative. Beta [facility] was slightly elevated. Digoxin level was negative. [...] otherwise unremarkable. And it was negative. Beta [facility] was slightly elevated. Digoxin level was negative. [...] signed by Jennifer Cruz MD> 02/04/23 0954 [facility] Work Phone: [phone]) 652-222111-22-2023 Progress note Author Jennifer Cruz [facility] February 03, 2023 10:49am Note Date/Time February 03, 2023 10:48am [facility] [address] [place] [address] Hospitalist Progress Note Signed Patient: Tadeo Thomas MR#: [id number] : 1945 Acct:[id number] Age/Sex: 78 / M Adm Date: 3 Loc: Room: 0A3809-4 Type: ADM INOo Attending Dr: Jennifer Cruz [...] otherwise unremarkable. And it was negative. Beta [facility] was slightly elevated. Digoxin level was negative. [...] otherwise unremarkable. And it was negative. Beta [facility] was slightly elevated. Digoxin level was negative. [...] signed by Jennifer Cruz MD> 02/03/23 1049 [facility] Work Phone: [phone] 246-952511-22-2023 Consult note Author Samra Garza [facility] February 03, 2023 10:37am Note Date/Time February 03, 2023 10:14am [facility] [address] [place] [address] Cardiology Consult Note Signed Patient: Tadeo Thomas MR#: [id number] : 1945 Acct:[id number] Age/Sex: 78 / M Adm Date: 3 Loc: Room: [address] [place] [address] Type: ADM INOo Attending Dr: Jennifer Cruz [...] and no additional complaints, except as documented [facility] Medical History Dementia Diabetes HTN (hypertension) Pacemaker [...] x10E3/uL Lymph # (Auto) 3.3 (1.00-4.8) x10E3/uL Stephenson # (Auto) 0.4 (0.0-0.8) x10E3/uL Eos # [...] signed by MD Samra Garza> 02/03/23 1037 [facility] Work Phone: [phone] 739-578311-21-2023 History and physical note Author Jennifer Cruz [facility] February 02, 2023 3:44pm Note Date/Time February 02, 2023 3:44pm [facility] [address] [place] [address] Hospitalist H&P Signed Patient: Tadeo Thomas MR#: [id number] : 1945 Acct:[id number] Age/Sex: 78 / M Adm Date: 3 Loc: Room: [address] [place] [address] Type: ADM INOo Attending Dr: Jennifer Cruz [...] otherwise unremarkable. And it was negative. Beta [facility] was slightly elevated. Digoxin level was negative. [...] negative unless noted below or in HPI [facility] Medical History (Updated 02/02/23 @ 15:40 by [...] % (Auto) 35.5 % (.) 02/02/23 11:35 Stephenson % (Auto) 4.8 % (.) 02/02/23 11:35 Eos % (Auto) 0.2 % (.) 02/02/23 11:35 Baso % (Auto) 0.3 % (.) 02/02/23 11:35 Nucleat RBC Rel Count 0.6 /100 WBC (0-0.5) H 02/02/23 11:35 Neut # (Auto) 5.4 x10E3/uL (1.8-7.7) 02/02/23 11:35 Lymph # (Auto) 3.3 x10E3/uL (1.00-4.8) 02/02/23 11:35 Stephenson # (Auto) 0.4 x10E3/uL (0.0-0.8) 02/02/23 11:35 [...] otherwise unremarkable. And it was negative. Beta [facility] was slightly elevated. Digoxin level was negative. [...] <Electronically signed by Jennifer Cruz MD> 02/02/23 1548 [facility] Work Phone: [phone]) 435-971110-26-2023 History of Present illness Narrative* Ketan Lucero [...] maintenance of sinus rhythm. [facility] Work Phone: 1(337) 193-803810-26-2023 Instructions* Patient Instructions* Carmen Thomas LPN - [...] follow up per routine [facility] Work Phone: 1(745) 167-952207-06-2023 Progress note Author Charlie Varner [facility] September 17, 2022 3:55pm Note Date/Time September 17, 2022 3:53p m [facility] [address] [place] [address] Hospitalist Progress Note Signed Patient: Tadeo Thomas MR#: [id number] : 1945 Acct:[id number] Age/Sex: 77 / M Adm Date: 3 Loc: Room: [address] [place] [address] Type: ADM IN Attending Dr: Charlie Varner [...] <Electronically signed by Charlie Varner MD> 09/17/22 1551 [facility] Work Phone: [phone]) 630-928607-05-2023 Progress note Author Charlie Varner [facility] September 16, 2022 3:55pm Note Date/Time September 16, 2022 3:55p m [facility] [address] [place] [address] Hospitalist Progress Note Signed Patient: Tadeo Thomas MR#: [id number] : 1945 Acct:[id number] Age/Sex: 77 / M Adm Date: 3 Loc: Room: [address] [place] [address] Type: ADM IN Attending Dr: Charlie Varner [...] signed by Charlie Varner MD> 09/16/22 1555 [facility] Work Phone: 1(443) 471-837807-05-2023 Progress note Author La Loza [facility] September 16, 2022 3:07pm Note Date/Time September 16, 2022 3:07p m [facility] [address] [place] [address] Anesthesia Progress Note Signed Patient: Tadeo Thomas MR#: [id number] : 1945 Acct:[id number] Age/Sex: 77 / M Adm Date: 3 Loc: 3T Room: [address] [place] [address] Type: ADM IN Attending Dr: Charlie Varner MD Copies to: ~ Anesthesia Progress Note Narrative Narrative: Chart review completed. Pending Lexiscan Stress. Otherwise, Pt appears to be optimized for planned pacemaker placement tomorrow. Documented By: LA LOZA DO 09/16/22 1506 Signed By: <Electronically signed by LA LOZA DO> 09/16/22 1507 [facility] Work Phone: 1([phone]) 371-431807-05-2023 Progress note Author Tae Dietrich [facility] September 16, 2022 10:34am Note Date/Time September 16, 2022 10:34 am [facility] [address] [place], [place] [address] Cardiology Progress Note Signed Patient: Tadeo Thomas MR#: [id number] : 1945 Acct:[id number] Age/Sex: 77 / M Adm Date: 3 Loc: 3T Room: [address] [place] [address] Type: ADM IN Attending Dr: Charlie Varner [...] signed by Tae Dietrich MD> 09/16/22 1034 [facility] Work Phone: 1([phone] 103-836807-04-2023 Progress note Author Charlie Varner [facility] September 15, 2022 3:32pm Note Date/Time September 15, 2022 3:32p m [facility] [address] [place] [address] Hospitalist Progress Note Signed Patient: Tadeo Thomas MR#: [id number] : 1945 Acct:[id number] Age/Sex: 77 / M Adm Date: 3 Loc: Room: [address] [place] [address] Type: ADM IN Attending Dr: Charlie Varner [...] signed by Charlie Varner MD> 09/15/22 1532 [facility] Work Phone: [phone] Consult note Author Tae Dietrich [facility] September 15, 2022 12:07pm Note Date/Time September 15, 2022 12:04 pm [facility] [address] [place] [address] Cardiology Consult Note Signed Patient: Tadeo Thomas MR#: [id number] : 1945 Acct:[id number] Age/Sex: 77 / M Adm Date: 3 Loc: Room: [address] [place] [address] Type: ADM IN Attending Dr: Charlie Varner [...] Lymph # (Auto) 4.2 3.9 (1.00-4.8) x10E3/uL Stephenson # (Auto) 0.5 0.4 (0.0-0.8) x10E3/uL Eos [...] ml @ 200 mls/hr IV ONCE ONE Rx#:[id number] Sodium Chloride 0.9% 1,000 ml 500 / 500 500 ml @ 999 mls/hr IV .Q31M ONE Rx#:[id number] Oral 500 / 500 150 / 150 Other: # Voids 1 # Unmeasured Voids 2 # Bowel Movements 0 Weight 81.8 kg 81.7 kg Date of Last Bowel Movement 09/14/22 09/14/22 Patient Weight 09/15/22 23:59 Weight 81.7 kg Lab 09/14/22 17:22 PT 11.5 INR 1.0 APTT 31.4 Echocardiogram Signed Patient: Tadeo Thomas MR#: [id number] : 1945 Acct:[id number] Age/Sex: 77 / M ADM Date: 09/11/22 Loc: EL ?? ? Room:? Type:?REG CLI Attending Dr: Aracelis Pedroza MD Ordering Provider: Aracelis Pedroza MD Date of Service: 09/11/22/ ECH/ECH echo transthoracic: ABNORMAL EKG ? Copies to: Fior Saleem MD, [facility] Aracelis Pedroza MD~ BSA: 2.0 m2 ? [...] <Electronically signed by Tae Dietrich MD> 09/15/221206 [facility] Work Phone: [phone]) [phone] History and physical note Author Charlie Varner [facility] September 14, 2022 10:07pm Note Date/Time September 14, 2022 8:31p m [facility] [address] [place] [address] Hospitalist H&P Signed Patient: Tadeo Thomas MR#: [id number] : 1945 Acct:[id number] Age/Sex: 77 / M Adm Date: 3 Loc: Room: [address] [place] [address] Type: ADM IN Attending Dr: Charlie Varner [...] negative unless noted below or in HPI [facility] Medical History (Updated 09/14/22 @ 22:02 by [...] % (Auto) 39.9 % (.) 09/14/22 17:22 Stephenson % (Auto) 4.5 % (.) 09/14/22 17:22 Eos % (Auto) 0.5 % (.) 09/14/22 17:22 Baso % (Auto) 0.3 % (.) 09/14/22 17:22 Nucleat RBC Rel Count 0.2 /100 WBC (0-0.5) 09/14/22 17:22 Neut # (Auto) 5.8 x10E3/uL (1.8-7.7) 09/14/22 17:22 Lymph # (Auto) 4.2 x10E3/uL (1.00-4.8) 09/14/22 17:22 Stephenson # (Auto) 0.5 x10E3/uL (0.0-0.8) 09/14/22 17:22 [...] signed by Charlie Varner MD> 09/14/22 2207 [facility] Work Phone: 1(443) 349-654907-03-2023 History and physical note Author Charlie Varner [facility] September 14, 2022 10:07pm Note Date/Time September 14, 2022 8:31p m [facility] [address] [place] [address] Hospitalist H&P Signed Patient: Tadeo Thomas MR#: [id number] : 1945 Acct:[id number] Age/Sex: 77 / M Adm Date: 3 Loc: Room: [address] [place] [address] Type: ADM IN Attending Dr: Charlie Varner [...] negative unless noted below or in HPI [facility] Medical History (Updated 09/14/22 @ 22:02 by [...] % (Auto) 39.9 % (.) 09/14/22 17:22 Stephenson % (Auto) 4.5 % (.) 09/14/22 17:22 Eos % (Auto) 0.5 % (.) 09/14/22 17:22 Baso % (Auto) 0.3 % (.) 09/14/22 17:22 Nucleat RBC Rel Count 0.2 /100 WBC (0-0.5) 09/14/22 17:22 Neut # (Auto) 5.8 x10E3/uL (1.8-7.7) 09/14/22 17:22 Lymph # (Auto) 4.2 x10E3/uL (1.00-4.8) 09/14/22 17:22 Stephenson # (Auto) 0.5 x10E3/uL (0.0-0.8) 09/14/22 17:22 [...] <Electronically signed by Charlie Varner MD> 09/14/22 2200 [facility] Work Phone: Consult note Author Tae Dietrich [facility] September 15, 2022 12:07pm Note Date/Time September 15, 2022 12:04 pm [facility] [address] [place] [address] Cardiology Consult Note Signed Patient: Tadeo Thomas MR#: [id number] : 1945 Acct:[id number] Age/Sex: 77 / M Adm Date: 3 Loc: 3T Room: [address] [place] [address] Type: ADM IN Attending Dr: Charlie Varner [...] Lymph # (Auto) 4.2 3.9 (1.00-4.8) x10E3/uL Stephenson # (Auto) 0.5 0.4 (0.0-0.8) x10E3/uL Eos [...] ml @ 200 mls/hr IV ONCE ONE Rx#:[id number] Sodium Chloride 0.9% 1,000 ml 500 / 500 500 ml @ 999 mls/hr IV .Q31M ONE Rx#:[id number] Oral 500 / 500 150 / 150 Other: # Voids 1 # Unmeasured Voids 2 # Bowel Movements 0 Weight 81.8 kg 81.7 kg Date of Last Bowel Movement 09/14/22 09/14/22 Patient Weight 09/15/22 23:59 Weight 81.7 kg Lab 09/14/22 17:22 PT 11.5 INR 1.0 APTT 31.4 Echocardiogram Signed Patient: Tadeo Thomas MR#: [id number] : 1945 Acct:[id number] Age/Sex: 77 / M ADM Date: 09/11/22 Loc: EL ?? ? Room:? Type:?REG CLI Attending Dr: Aracelis Pedroza MD Ordering Provider: Aracelis Pedroza MD Date of Service: 09/11/22/ ECH/ECH echo transthoracic: ABNORMAL EKG ? Copies to: Fior Saleem MD, [facility] Aracelis Pedroza MD~ BSA: 2.0 m2 ? [...] <Electronically signed by Tae Dietrich MD> 09/15/221206 [facility] Work Phone: Consult note Author Samra Garza [facility] February 03, 2023 10:37am Note Date/Time February 03, 2023 10:14am [facility] [address] [place] [address] Cardiology Consult Note Signed Patient: Tadeo Thomas MR#: [id number] : 1945 Acct:[id number] Age/Sex: 78 / M Adm Date: 3 Loc: Room: [address] [place] [address] Type: ADM INOo Attending Dr: Jennifer Cruz [...] and no additional complaints, except as documented [facility] Medical History Dementia Diabetes HTN (hypertension) Pacemaker [...] x10E3/uL Lymph # (Auto) 3.3 (1.00-4.8) x10E3/uL Stephenson # (Auto) 0.4 (0.0-0.8) x10E3/uL Eos # [...] <Electronically signed by MD Samra Garza> 02/03/[address] [place] [address] Ctr Work Phone: Evaluation note* Diagnosis Onset Date Resolution Status Bigeminy acute Near syncope acute Sinus arrhythmia acute Tachy-rosette syndrome acute Tachyarrhythmia acute [facility] Work Phone: Evaluation note* Diagnosis Anticoagulated- Primary Encounter for long-term (current) use of anticoagulants Sick sinus syndrome due to sinoatrial node dysfunction (CMS/HCC) Pacemaker Cardiac pacemaker in situ Mixed hyperlipidemia Hypertension, benign Essential hypertension, benign Paroxysmal atrial fibrillation (CMS/HCC) Atrial fibrillation documented in this encounter [facility] Work Phone: Evaluation note* Diagnosis Onset Date Resolution Status Acute hypotension acute Non-sustained ventricular tachycardia acute Sick sinus syndrome acute SVT (supraventricular tachycardia) acute [facility] Work Phone: Evaluation note* Diagnosis Onset Date Resolution Status Acute hypotension acute Diabetes type 2, controlled acute Hyperlipemia acute Non-sustained ventricular tachycardia acute Sick sinus syndrome acute SVT (supraventricular tachycardia) acute Tachy-rosette syndrome acute Tachyarrhythmia acute [facility] Work Phone: Evaluation note* Diagnosis Sick sinus syndrome due to sinoatrial node dysfunction (CMS/HCC)- Primary Atrial fibrillation, unspecified type (CMS/HCC) Paroxysmal atrial fibrillation (CMS/HCC) Atrial fibrillation Pacemaker Cardiac pacemaker in situ Mixed hyperlipidemia Hypertension, benign Essential hypertension, benign Anticoagulated Encounter for long-term (current) use of anticoagulants documented in this encounter [facility] Work Phone: History and physical note Author Jennifer Cruz [facility] February 02, 2023 3:44pm Note Date/Time February 02, 2023 3:44pm [facility] [address] [place] [address] Hospitalist H&P Signed Patient: Tadeo Thomas MR#: [id number] : 1945 Acct:[id number] Age/Sex: 78 / M Adm Date: 3 Loc: Room: [address] [place] [address] Type: ADM INOo Attending Dr: Jennifer Cruz [...] otherwise unremarkable. And it was negative. Beta [facility] was slightly elevated. Digoxin level was negative. [...] negative unless noted below or in HPI [facility] Medical History (Updated 02/02/23 @ 15:40 by [...] % (Auto) 35.5 % (.) 02/02/23 11:35 Stephenson % (Auto) 4.8 % (.) 02/02/23 11:35 Eos % (Auto) 0.2 % (.) 02/02/23 11:35 Baso % (Auto) 0.3 % (.) 02/02/23 11:35 Nucleat RBC Rel Count 0.6 /100 WBC (0-0.5) H 02/02/23 11:35 Neut # (Auto) 5.4 x10E3/uL (1.8-7.7) 02/02/23 11:35 Lymph # (Auto) 3.3 x10E3/uL (1.00-4.8) 02/02/23 11:35 Stephenson # (Auto) 0.4 x10E3/uL (0.0-0.8) 02/02/23 11:35 [...] otherwise unremarkable. And it was negative. Beta [facility] was slightly elevated. Digoxin level was negative. [...] signed by Jennifer Cruz MD> 02/02/23 1544 [facility] Work Phone: History of Present illness [...] medication regimen. He denies medication side effects. [facility] DO Work Phone: History of [...] medication regimen. He denies medication side effects. -[facility] Lingt DO Work Phone: History of Present illness [...] medication regimen. He denies medication side effects. -[facility] Lingt DO Work Phone: Hospital Discharge instructions Additional [...] with nurse for incision check in the [facility] on [facility] on 09/25/2022 at 11:00am. 2. Chest x-ray to be done the same day as your device check at [facility] on 12/24/2022 . 3. Pacemaker/ICD clinic appointment at [facility] on 12/24/2022 at 9:00am. 4. Office visit with Dr. Lucero at [facility] in the [place] OFFICE on [address] on 01/07/2023 at 10:50am. [][facility] Work Phone: Hospital Discharge instructions Additional Instructions SNF to manage: -PT/OT to eval and treat -Monitor VS per protocol -Fall precautions -Perform cardiovascular assessments -Care to be managed by SNF providers.[facility] Work Phone: Progress note Author Charlie Varner [facility] September 15, 2022 3:32pm Note Date/Time September 15, 2022 3:32p m [facility] [address] [place] [address] Hospitalist Progress Note Signed Patient: Tadeo Thomas MR#: [id number] : 1945 Acct:[id number] Age/Sex: 77 / M Adm Date: 3 Loc: Room: [address] [place] [address] Type: ADM IN Attending Dr: Charlie Varner [...] signed by Charlie Varner MD> 09/15/22 1532 [facility] Work Phone: Progress note Author Tae Dietrich [facility] September 16, 2022 10:34am Note Date/Time September 16, 2022 10:34 am [facility] [address] [place] [address] Cardiology Progress Note Signed Patient: Tadeo Thomas MR#: [id number] : 1945 Acct:[id number] Age/Sex: 77 / M Adm Date: 3 Loc: Room: [address] [place] [address] Type: ADM IN Attending Dr: Charlie Varner [...] signed by Tae Dietrich MD> 09/16/22 1034 [facility] Work Phone: Progress note Author La Loza [facility] September 16, 2022 3:07pm Note Date/Time September 16, 2022 3:07p m [facility] [address] [place] [address] Anesthesia Progress Note Signed Patient: Tadeo Thomas MR#: [id number] : 1945 Acct:[id number] Age/Sex: 77 / M Adm Date: 3 Loc: Room: [address] [place] [address] Type: ADM IN Attending Dr: Charlie Varner MD Copies to: ~ Anesthesia Progress Note Narrative Narrative: Chart review completed. Pending Lexiscan Stress. Otherwise, Pt appears to be optimized for planned pacemaker placement tomorrow. Documented By: LA LOZA DO 09/16/22 1506 Signed By: <Electronically signed by LA LOZA DO> 09/16/22 1507 [facility] Work Phone: Progress note Author Charlie Varner [facility] September 16, 2022 3:55pm Note Date/Time September 16, 2022 3:55p m [facility] [address] [place] [address] Hospitalist Progress Note Signed Patient: Tadeo Thomas MR#: [id number] : 1945 Acct:[id number] Age/Sex: 77 / M Adm Date: 3 Loc: Room: [address] [place] [address] Type: ADM IN Attending Dr: Charlie Varner [...] signed by Charlie Varner MD> 09/16/22 1555 [facility] Work Phone: Progress note Author Jennifer Cruz [facility] February 03, 2023 10:49am Note Date/Time February 03, 2023 10:48am [facility] [address] [place] [address] Hospitalist Progress Note Signed Patient: Tadeo Thomas MR#: [id number] : 1945 Acct:[id number] Age/Sex: 78 / M Adm Date: 3 Loc: Room: [address] [place] [address] Type: ADM INOo Attending Dr: Jennifer Cruz [...] otherwise unremarkable. And it was negative. Beta [facility] was slightly elevated. Digoxin level was negative. [...] otherwise unremarkable. And it was negative. Beta [facility] was slightly elevated. Digoxin level was negative. [...] signed by Jennifer Cruz MD> 02/03/23 1049 [facility] Work Phone: Reason for referral (narrative)* Consultation (Routine) - Authorized Specialty Diagnoses / Procedures Referred By Contac t Referred To Contact Cardiology Diagnoses Paroxysmal atrial fibrillation (CMS/HCC) Procedures Follow Up In Cardiology Ketan Lucero MD [address] [place] [address] 2, Markos [address] [place] [address] Ketan Lucero MD [address] [place] [address] 2, [address] [address] Referral ID Status Reason Start Date Expiration Date V isits Requested Visits Authorized [id number] Authorized 01/07/2023 01/07/2024 1 1 [facility] Work Phone: Reason for referral (narrative)* Consultation (Routine) - Authorized Specialty Diagnoses / Procedures Referred By Contac t Referred To Contact Cardiology Diagnoses Atrial fibrillation, unspecified type (CMS/HCC) Procedures Follow Up In Cardiology Ketan Lucero MD [address] [place] [address] 2, [address] [address] Ketan Lucero MD [address] [place] [address] 2, [address] [address] Referral ID Status Reason Start Date Expiration Date V isits Requested Visits Authorized [id number] Authorized 03/01/2023 02/29/2024 1 1 * Cardiovascular (Routine) - Pending Review Specialty Diagnoses / Procedures Referred By Contac t Referred To Contact Diagnoses Atrial fibrillation, unspecified type (CMS/HCC) Procedures ECG 12 Lead Ketan Lucero MD [facility] [facility] 2, [address] [address] Referral ID Status Reason Start Date Expiration Date V isits Requested Visits Authorized [id number] Pending Review 03/01/2023 02/29/2024 1 1 [facility] Work Phone: Assessments No Assessments Information Available [...] done by Dr. Ketan Lucero MD at [facility] on 09/17/2022. Dr. Samra Garza MD in [...] Shaw RN prior to discharge. To Dr. Keatn Lucero MD for review.* Hospital f/u: 'things seem to have settled down' * TADEO THOMAS is being seen for atrial flutter. * Hospital f/u: 'things seem to have settled down' * TADEO THOMAS is being seen for atrial flutter. * Patient presents to the office today accompanied by . * This is initial in clinic follow-up at [facility]. * Throughout the summer patient reports dizziness and shortness of breath and frequent falls. PCP completed a Holter monitor and echocardiogram. The Holter monitor showed 2-1 atrial flutter and patientwas instructed to present to local hospital. * September 2022 at [facility] seen in consult Dr. Dietrich d/t 2:1 atrial flutter and Mobitz II. * Outpatient echo: EF 55, LVH mild * Inpatient MPI: no ischemia, fixed inferior defect 18% artifact vs. [place] * September 17, 2022 impant Pearson [id number] [...] * Cardiovascular history: * September 2022 at [facility] [place] seen in consult Dr. Dietrich d/t 2:1 atrial flutter and Mobitz II. * Inpatient MPI: no ischemia, fixed inferior defect 18% artifact vs. [place] * September 17, 2022 implant Pearson [id number] [...] section and content) DATE CREATED AUTHOR 04/22/2021 [facility] dical Specialist DATE CREATED AUTHOR AUTHOR'S ORGANIZ ATION 05/12/2021 [facility] DATE CREATED AUTHOR AUTHOR'S ORGANIZ ATION 11/23/2022 [facility] DATE CREATED AUTHOR AUTHOR'S ORGANIZ ATION 11/27/2022 [facility] DATE CREATED AUTHOR AUTHOR'S ORGANIZ ATION 11/27/2022 [facility] DATE CREATED AUTHOR AUTHOR'S ORGANIZ ATION 12/20/2022 [facility] DATE CREATED AUTHOR AUTHOR'S ORGANIZ ATION 02/13/2023 [facility] DATE CREATED AUTHOR AUTHOR'S ORGANIZ ATION 03/03/2023 [facility] DATE CREATED AUTHOR AUTHOR'S ORGANIZ ATION 03/22/2023 [facility] dical Specialists EPIC Care Teams (unrecognized [...] Active Olga Wyatt APRN Other Provider Active Cehryl Das MD Other Provider Active Nabeel Ojeda MD Other Provider Active Nikolay Barragan MD Other Provider Active Adelaida Carreon [facility] Other Provider Active Izabella Henderson MD Other [...] MD Other Provider Active Adelaida Carreon , [facility] Other Provider Active Izabella Henderson MD Other Provider Active Blender Snuff Relationship Specialty Start Date End Date Aracelis Pedroza MD [address] [place] [address] PCP - General 09/25/22 Team Status: Inactive [...] Active Miguel Hinson MD Attending Provider Active Blender Snuff Relationship Specialty Start Date End Date Aracelis Pedroza MD [address] [place] [address] PCP - General 09/25/22 Goals (unrecognized section and content) Goals may be documented in a n alternate sectionGoals may be documented in an alternate section Reason for Visit (unrecogniz ed section and content) Reason Comments Follow-up 15 week PCM Reason Comments Follow-up [facility] discharge 02-05 Specialty Diagnoses / Procedures Referred By Contac t Referred To Contact Cardiology Diagnoses Atrial fibrillation, unspecified type (CMS/HCC) Procedures Follow Up In Cardiology Samra Garza MD [address] [facility] [address] [place] [address] Ketan Lucero MD [address] [facility] [address] [place] [address] Referral ID Status Reason Start Date Expiration Date V isits Requested Visits Authorized [id number] Authorized 02/05/2023 02/05/2024 1 1 FOR RECORDS [...] BE BASED ON THE PRIMARY CLINICAL RECORDS. [facility]. provides no warranty or guarantee of the accuracy or completeness of information in this document.
[2023-04-20 02:04] LABS: Glucometer 106 mg/dL (74-106)
[2023-04-20 04:16] LABS: Glucometer 118 mg/dL (74-106)
[2023-04-20 04:25] LABS: Basophils Percent Auto 0.1 % (0.2-2.0); Eosinophils Absolute Auto 0.1 10^3/uL (0.0-0.7); Eosinophils Percent Auto 0.7 % (0.9-7.0); Hemoglobin 9.2 g/dL (14.0-18.0); Immature Granulocytes Abs Auto 0.05 10^3/uL (0.00-0.03); Immature Granulocytes Pct Auto 0.5 % (0.0-0.5); Lymphocytes Absolute Auto 3.2 10^3/uL (1.2-3.8); Lymphocytes Percent Auto 33.2 % (20.5-60.0); Mean Corpuscular HGB Conc 32.9 g/dL (29.9-35.2); Mean Corpuscular Hemoglobin 33.2 pg (25.9-34.0); Mean Corpuscular Volume 101.1 fL (80.0-94.0); Mean Platelet Volume 9.3 fL (9.5-13.5); Monocytes Absolute Auto 0.8 10^3/uL (0.3-0.8); Monocytes Percent Auto 8.1 % (1.7-12.0); Neutrophils Absolute Auto 5.5 10^3/uL (1.4-6.5); Neutrophils Percent Auto 57.4 % (43.0-75.0); Platelet Count 181 10^3/uL (150-450); Red Blood Count 2.77 10^6/uL (4.70-6.10); Red Cell Distribution Width 15.9 % (11.0-15.0); White Blood Count 9.6 10^3/uL (4.0-11.0)
[2023-04-20 04:30] LABS: Anion Gap 12.1; BUN Creatinine Ratio 30.7; Calcium 8.3 mg/dL (8.5-10.1); Carbon Dioxide 29.1 mmol/L (21.0-32.0); Chloride 101 mmol/L (98-107); Estimated GFR (African America >60 (>=60); Estimated GFR (Non-African Ame >60 (>=60); Glucose 115 mg/dL (74-106); Potassium 3.2 mmol/L (3.5-5.1); Sodium 139 mmol/L (136-145)
[2023-04-20 06:08] LABS: Glucometer 81 mg/dL (74-106)
[2023-04-20 07:39] LABS: Glucometer 99 mg/dL (74-106)
[2023-04-20] MEDS: APIXABAN 5 MG TABLET PO ×2 (08:30→21:29)
[2023-04-20] MEDS: ATORVASTATIN CALCIUM 20 MG TABLET PO (08:30)
[2023-04-20] MEDS: POTASSIUM CHLORIDE 10 MEQ ER TABLET PO ×2 (08:30→21:29)
[2023-04-20] MEDS: ASPIRIN 81 MG TAB.CHEW PO (08:30)
--- NOTE | 2023-04-20 08:30 | P.HP_ITS ---
H&P: HPI History of Present Illness Chief complaint: FALL Narrative: Patient had several falls at home. Found to have significant hypoglycemia. With his significant hypoglycemia and altered mental status patient was admitted. Also sinus tachycardia and some respiratory distress on admission. Leukocytosis of uncertain etiology. Review of Systems ROS Status of ROS 10 or more systems reviewed and unremark able except as noted in history and below [facility] Medical History (Updated 04/20/23 @ 01:45 by Brandy Lacy) Noncompliance with CPAP treatment ?Z91.199 - Patient's noncompliance with other medical treatment and regimen due to unspecified reason (ICD-10) Sleep apnea ?G47.30 - Sleep apnea, unspecified (ICD-10) Hyperlipemia ?E78.5 - Hyperlipidemia, unspecified (ICD-10) Diabetes ?E11.9 - Type 2 diabetes mellitus without complications (ICD-10) Hypotension ?I95.9 - Hypotension, unspecified (ICD-10) Dementia ?F03.90 - Unspecified dementia, unspecified severity, without behavioral disturbance, psychotic disturbance, mood disturbance, and anxiety (ICD-10) Pacemaker ?Z95.0 - Presence of cardiac pacemaker (ICD-10) Atrial flutter ?I48.92 - Unspecified atrial flutter (ICD-10) Social History (Updated 04/20/23 @ 01:42 by Brandy Lacy) Within the past year, how often did you have a drink containing alcohol: never Score interpretation: A score less than 4 is consistent with normal alcohol consumption. Smoking status: Former smoker Previous occupational history: Highest level of school completed/degree received: 12th grade, no diploma Are you now , , , , never or living with a partner: Little interest or pleasure in doing things: not at all Feeling down, depressed, or hopeless: not at all Feel stressed/tense/nervous/anxious/difficulty sleeping: not at all Meds Home Medications and Allergies Home Medications Medication Instructions Recorded Confirmed Type alogliptin 25 mg tablet 25 mg PO DAILY 02/12/23 04/19/23 History apixaban 5 mg tablet (Eliquis) 5 mg PO BID 02/12/23 04/19/23 History flecainide 50 mg tablet 50 mg PO Q12H 02/12/23 04/19/23 History glipizide 10 mg tablet 10 mg PO BID 02/12/23 04/19/23 History metformin 1,000 mg tablet 1,000 mg PO BID 02/12/23 04/20/23 History pioglitazone 30 mg tablet 30 mg PO DAILY 02/12/23 04/19/23 History pravastatin 80 mg tablet 80 mg PO .QHS 02/12/23 04/20/23 History aspirin 81 mg capsule 81 mg PO DAILY 04/19/23 04/19/23 History losartan 25 mg tablet (Cozaar) 25 mg PO DAILY 04/19/23 04/19/23 History Allergies Allergy/AdvReac Type Severity Reaction Status Date / Time No Known Drug Allergies Allergy Verified 04/19/23 21:18 Exam Constitutional Vital Signs, click to edit/add: Last Vital Signs Temp 98.1 F 04/20/23 07:29 Pulse 75 04/20/23 07:29 Resp 16 04/20/23 07:29 BP 115/66 04/20/23 07:29 Pulse Ox 91 L 04/20/23 07:29 O2 Del Method Room Air 04/20/23 07:29 Documenting provider has reviewed patient's vital signs: yes Common normals: no apparent distress (Somnolent but does answer questions appropriately) HENMT Common normals: normocephalic Chest Common normals: inspection of chest normal Respiratory Common normals: normal respiratory effort Cardio Common normals: regular rate and regular rhythm GI Common normals: Normal to inspection, nondistended, normoactive bowel sounds present Extremity Common normals: normal to inspection and full ROM Neuro Common normals: oriented x3, CN's II-XII intact bilaterally and moves all extremities Sensorium/orientation: awake and alert (But somnolent) Results Labs Labs: Short CBC 04/19/23 04/20/23 Range/Units 21:17 04:15 WBC 14.3 H 9.6 (4.0-11.0) 10^3/uL Hgb 10.5 L 9.2 L (14.0-18.0) g/dL Hct 31.4 L 28.0 L (42.0-54.0) % Plt Count 210 181 (150-450) 10^3/uL BMP 04/19/23 04/20/23 21:17 04:15 Sodium 139 139 Potassium 3.6 3.2 L Chloride 101 101 Carbon Dioxide 28.5 29.1 BUN 38.0 H 31.0 H Creatinine 1.27 1.01 Glucose 87 115 H Calcium 9.0 8.3 L Urine 04/19/23 Range/Units 23:43 Urine Color Yellow (YELLOW) Urine Clarity Clear (CLEAR) Urine pH 5.5 (5.0-9.0) Ur Specific Waldo >=1.030 A (1.005-1.025) Urine Protein Negative (NEG/TRACE) mg/dL Urine Glucose (UA) Negative (NEGATIVE) mg/dL Assessment and Plan Assessment and Plan (1) Hypoglycemia: (2) Diabetes: Plan Sinus tachycardia, respiratory distress secondary to hypoglycemia, leukocytosis possible due to demargination from both the hypoglycemia and the falls. Patient on D5 and sugars are improving. When sugar becomes elevated we will DC the D5 and restart home medications at lower doses Hypokalemia-supplement Iron deficiency anemia monitor as an outpatient Atrial fibrillation-rate controlled, continue with anticoagulant Hypertension-continue with home medications With frequent falls and physical therapy assessment patient is high risk for recurrent falls despite improvement in sugar. Could benefit from a rehabilitation stay. Patient is agreeable. Medications need to be continuously adjusted for his diabetes to improve safety once he is discharged, this course of treatment will span 2 midnights we will change patient to inpatient status
[2023-04-20] MEDS: LOSARTAN POTASSIUM 25 MG TABLET PO (08:31)
[2023-04-20] MEDS: FLECAINIDE ACETATE 50 MG TABLET PO ×2 (08:31→21:29)
--- NOTE | 2023-04-20 09:09 | CM.NOTE ---
Rounds made with Dr. Guerra. Dr. Guerra explains lab/test findings. Mr. Gonzalez with rib pain-Dr. Guerra will order an xray. Potential plan for discharge later today.
--- NOTE | 2023-04-20 09:12 | XR_ITS ---
The [address] [address] Patient Name: TADEO THOMAS MRN: [id number] date: 1945 Sex: M Assigned Patient Location: ICU Current Patient Location: ICU Accession/Order Number: [id number] Exam Date: 04/20/2023 09:00 Report Date: 04/20/2023 09:43 At the request of: ADAIR CHERY Procedure: XR ribs BI min 4V w CXR1V EXAMINATION: XR ribs BI min 4V w CXR1V HISTORY: fall COMPARISON: No relevant comparison available. FINDINGS: LUNGS: No significant pulmonary parenchymal abnormalities. PLEURA: No pneumothorax, effusion, or pleural thickening. MEDIASTINUM: No visible mass or adenopathy. Left bipolar pacemaker CARDIAC: No cardiomegaly or cardiac silhouette abnormality. RIBS: No acute rib fracture OTHER: Negative. XR/XR ribs BI min 4V w CXR1V IMPRESSION: No acute rib fracture Clear lungs Electronically authenticated by: LA FERGUSON Date: 04/20/2023 09:43
--- NOTE | 2023-04-20 11:44 | SWNOTE1 ---
TEETEE met with pt to discuss dc needs. Pt lives at home with his . His does the driving. Pt has a cane that he does use most of the time. Pt did have HH in past and he graduated from them and they recommended outpt therapy. Pt is going to outpt therapy with his across from the [facility]. Pt likes this and would like to continue with outpt therapy. At this time pt voiced no other needs.
--- NOTE | 2023-04-20 12:27 | SWNOTE1 ---
SW did see that OT recommended SNF, SW to check to see if pt is agreeable.
--- NOTE | 2023-04-20 13:09 | SWNOTE1 ---
TEETEE spoke with pt and pt's in room. SW advised them that it is recommended pt go skilled at nursing facility for rehab. Pt's stated he was at [facility] for rehab about a month ago. She voiced it did help. They are going to talk about it and let SW know. TEETEE did ask about insurance as only [facility]. Pt's states he has [employer]. She does not have cards with her. She will bring them in. Pt and have decided they want him to go skilled and want the [facility]. TEETEE sent referral. Referral included face sheet, physician notes, labs, vitals, PT/OT, med list, and any pertinent notes. Also diagnostic imaging.
--- NOTE | 2023-04-20 16:07 | SWNOTE1 ---
SW sent over H&P to [facility]. There is no Physical therapy note at this time. Unsure if [facility] will be able to start precert without PT note.
[2023-04-20 16:24] LABS: Occult Blood Negative
[2023-04-20] MEDS: METFORMIN HCL 500 MG TABLET 1000 MG PO (16:45)
[2023-04-20] MEDS: INSULIN ASPART 300 UNIT/3 ML PEN SUBQ (21:31)
[2023-04-21] VITALS (8 sets, daily range): BP systolic 117–126; BP diastolic 68–70; PULSE 73–95; RESP 16–18; TEMP 36.7; O2SAT 94–98
[2023-04-21 04:16] LABS: Basophils Percent Auto 0.4 % (0.2-2.0); Eosinophils Absolute Auto 0.2 10^3/uL (0.0-0.7); Hemoglobin 9.4 g/dL (14.0-18.0); Immature Granulocytes Abs Auto 0.01 10^3/uL (0.00-0.03); Immature Granulocytes Pct Auto 0.1 % (0.0-0.5); Lymphocytes Absolute Auto 3.1 10^3/uL (1.2-3.8); Lymphocytes Percent Auto 42.3 % (20.5-60.0); Mean Corpuscular HGB Conc 33.6 g/dL (29.9-35.2); Mean Corpuscular Hemoglobin 34.2 pg (25.9-34.0); Mean Corpuscular Volume 101.8 fL (80.0-94.0); Mean Platelet Volume 9.4 fL (9.5-13.5); Monocytes Absolute Auto 0.5 10^3/uL (0.3-0.8); Monocytes Percent Auto 6.3 % (1.7-12.0); Neutrophils Absolute Auto 3.5 10^3/uL (1.4-6.5); Neutrophils Percent Auto 47.9 % (43.0-75.0); Platelet Count 185 10^3/uL (150-450); Red Blood Count 2.75 10^6/uL (4.70-6.10); Red Cell Distribution Width 15.9 % (11.0-15.0); White Blood Count 7.3 10^3/uL (4.0-11.0)
[2023-04-21 04:34] LABS: Ammonia 20 umol/L (11-32)
[2023-04-21 04:40] LABS: Alanine Aminotransferase 25 U/L (16-63); Albumin Globulin Ratio 0.7; Albumin Level 2.4 g/dL (3.4-5.0); Alkaline Phosphatase 70 U/L (46-116); Anion Gap 10.1; Aspartate Amino Transferase 17 U/L (15-37); BUN Creatinine Ratio 20.5; Bilirubin Total 0.4 mg/dL (0.2-1.0); Calcium 8.4 mg/dL (8.5-10.1); Carbon Dioxide 28.5 mmol/L (21.0-32.0); Chloride 105 mmol/L (98-107); Estimated GFR (African America >60 (>=60); Estimated GFR (Non-African Ame >60 (>=60); Globulin 3.5 g/dL; Glucose 115 mg/dL (74-106); Potassium 3.6 mmol/L (3.5-5.1); Sodium 140 mmol/L (136-145); Total Protein 5.9 g/dL (6.4-8.2)
[2023-04-21] MEDS: METFORMIN HCL 500 MG TABLET 1000 MG PO (08:00)
[2023-04-21] MEDS: ASPIRIN 81 MG TAB.CHEW PO (08:00)
[2023-04-21] MEDS: APIXABAN 5 MG TABLET PO (08:00)
[2023-04-21] MEDS: POTASSIUM CHLORIDE 10 MEQ ER TABLET PO (08:01)
[2023-04-21] MEDS: ATORVASTATIN CALCIUM 20 MG TABLET PO (08:01)
[2023-04-21] MEDS: FLECAINIDE ACETATE 50 MG TABLET PO (08:01)
[2023-04-21] MEDS: LOSARTAN POTASSIUM 25 MG TABLET PO (08:01)
[2023-04-21] MEDS: PIOGLITAZONE 15 MG TABLET 30 MG PO (08:07)
--- NOTE | 2023-04-21 09:03 | SWNOTE1 ---
SW sent over PT note for [facility] to start precert.
--- NOTE | 2023-04-21 09:14 | PM.PN ---
Exam Constitutional Vital Signs, click to edit/add: Last Vital Signs Temp 98.1 F 04/21/23 05:00 Pulse 74 04/21/23 08:00 Resp 18 04/21/23 05:00 BP 126/70 04/21/23 05:00 Pulse Ox 94 L 04/21/23 06:00 O2 Del Method Room Air 04/21/23 05:00 Progress Note: Objective Labs Labs: Short CBC 04/21/23 Range/Units 04:02 WBC 7.3 (4.0-11.0) 10^3/uL Hgb 9.4 L (14.0-18.0) g/dL Hct 28.0 L (42.0-54.0) % Plt Count 185 (150-450) 10^3/uL BMP 04/21/23 04:02 Sodium 140 Potassium 3.6 Chloride 105 Carbon Dioxide 28.5 BUN 15.0 Creatinine 0.73 Glucose 115 H Calcium 8.4 L Liver Function 04/21/23 Range/Units 04:02 Total Bilirubin 0.4 (0.2-1.0) mg/dL AST 17 (15-37) U/L ALT 25 (16-63) U/L Alkaline Phosphatase 70 (46-116) U/L Albumin 2.4 L (3.4-5.0) g/dL Progress Note: A&P Assessment and Plan (1) Hypoglycemia: (2) Diabetes:
--- NOTE | 2023-04-21 10:00 | CM.NOTE ---
Rounds made with Dr. Guerra. Awaiting discharge plan to [facility].
--- NOTE | 2023-04-21 10:30 | REH.PTDLY ---
Physical Therapy Daily Note PT Daily Note/Assess Start: 04/21/23 10:18 Freq: Status: Active Protocol: Document 04/21/23 10:19 RABIA (Rec: 04/21/23 10:30 RABIA [id number]) Physical Therapy Daily Note/Assessment Time In 10:00 Time Out 10:13 Pain Level 0 Subjective Pt up in chair, no complaints. Just waiting for insurance approval to go to rehab per pt . Therapeutic Exercise Minutes (minutes) 7 Therapeutic Exercise Units 1 Therapeutic Exercise Treatment Instructed in seated B LE exs 10x ea with AP, hip abd, and LAQ. Standing B LE exs 10x ea with UE support on RW. Exs including marching, hip flex, hip ext, hip abd, and HS curl for improved LE strength. Therapeutic Activity Minutes (minutes) 6 Therapeutic Activity Units 0 Chair Transfer Ability Standby Assistance Therapeutic Activity Comments Sit to stand transfers 5x in a row with pt using UEs to push off from chair for improved mobility and strength in LEs. Gait training with RW SBA 100 feet with cues to avoid obstacles. No complaints during gait. Total Therapy Minutes 13 Total Physical Therapy Units 1 Daily Note Summary Pt does well with exs asked of him with UE support, cues needed to stay on task and not jump to another ex. Pt has had more frequent falls at home thus pt would benefit from short SNF stay to improve strength and balance for safety.
--- NOTE | 2023-04-21 13:19 | SWNOTE1 ---
Pt is approved to go to [facility]. SW let doctor know.
--- NOTE | 2023-04-21 14:16 | SWNOTE1 ---
Pt approved to go to [facility] skilled. Doctor placed orders. SW sent finalized dc med rec to [facility]. SW completed HENS. SW spoke to and she will be transporting. SW called [facility] and let them know will be transporting around 2:45 to [facility]. SW gave pt's packet to give to [facility].
--- NOTE | 2023-04-21 19:08 | P.DS_ITS ---
DS: Providers Provider Date of admission: 04/20/23 01:46 Primary care physician: ARACELIS PEDROZA Consults: 04/20/23 09:00 Occupational Therapy Eval and Treat Routine Reason for consultation: Frequent falls Has provider been notified: No Physical Therapy Eval and Treat Routine Reason for consultation: Frequent falls Has provider been notified: No DS: Diagnosis Discharge Diagnosis (1) Hypoglycemia: (2) Diabetes: Plan Sinus tachycardia, respiratory distress secondary to hypoglycemia, leukocytosis possible due to demargination from both the hypoglycemia and the falls. Hypokalemia Iron deficiency anemia monitor as an outpatient Atrial fibrillation Hypertension DS: Summary Hospital Course Hospital Course: Patient with a significant fall at home. Found to have severe height hypoglycemia. Patient states has been eating fairly consistently. No change in his medications recently. It appears that the most likely culprit is the glimepiride. Medications were discontinued the first day. Reinstituted yesterday. Sugars have maintained some stability but is very sensitive to insulin as well. At this point patient is improving but still generalized weakness. For patient safety is recommended to go to rehab. Patient medically stable for rehab. Time Spent with Patient Time attestation: Total time spent providing and/or coordinating discharge services: Time spent: less than 30 minutes Quality: Stroke Onset of Symptoms Date: 04/19/23 Onset of Symptoms Time: 20:15 Exam Constitutional Vital Signs, click to edit/add: Last Vital Signs Temp 98.0 F 04/21/23 10:57 Pulse 95 H 04/21/23 11:44 Resp 16 04/21/23 11:44 BP 117/68 04/21/23 10:57 Pulse Ox 98 04/21/23 11:44 O2 Del Method Room Air 04/21/23 10:57 Documenting provider has reviewed patient's vital signs: yes Common normals: no apparent distress (Somnolent but does answer questions appropriately) HENMT Common normals: normocephalic Chest Common normals: inspection of chest normal Respiratory Common normals: normal respiratory effort Cardio Common normals: regular rate and regular rhythm GI Common normals: Normal to inspection, nondistended, normoactive bowel sounds present Extremity Common normals: normal to inspection and full ROM Neuro Common normals: oriented x3, CN's II-XII intact bilaterally and moves all extremities Sensorium/orientation: awake and alert (But somnolent) DS: Data Data Completed and Pending Labs on day of discharge: Labs from last 24 hours 04/21/23 04:02 WBC 7.3 RBC 2.75 L Hgb 9.4 L Hct 28.0 L MCV 101.8 H MCH 34.2 H MCHC 33.6 RDW 15.9 H Plt Count 185 MPV 9.4 L Neut % (Auto) 47.9 Lymph % (Auto) 42.3 Haakon % (Auto) 6.3 Eos % (Auto) 3.0 Baso % (Auto) 0.4 Neut # (Auto) 3.5 Lymph # (Auto) 3.1 Haakon # (Auto) 0.5 Eos # (Auto) 0.2 Baso # (Auto) 0.0 Abs Immat Gran (auto) 0.01 Imm/Tot Granulo (auto) 0.1 Sodium 140 Potassium 3.6 Chloride 105 Carbon Dioxide 28.5 Anion Gap 10.1 BUN 15.0 Creatinine 0.73 Est GFR ( Amer) >60 Est GFR (Non-Af Amer) >60 BUN/Creatinine Ratio 20.5 Glucose 115 H Calcium 8.4 L Total Bilirubin 0.4 AST 17 ALT 25 Alkaline Phosphatase 70 Ammonia 20 Total Protein 5.9 L Albumin 2.4 L Globulin 3.5 Albumin/Globulin Ratio 0.7 Discharge Plan Discharge Disposition: Xfer SNF Discharge Medications: Continued aspirin 81 mg capsule 81 mg PO DAILY losartan [Cozaar] 25 mg tablet 25 mg PO DAILY metformin 1,000 mg tablet 1,000 mg PO BID pioglitazone 30 mg tablet 30 mg PO DAILY Eliquis 5 mg tablet 5 mg PO BID alogliptin 25 mg tablet 25 mg PO DAILY flecainide 50 mg tablet 50 mg PO Q12H pravastatin 80 mg tablet 80 mg PO .QHS Discontinued glipizide 10 mg tablet 10 mg PO BID [employer] Technician/[employer] Maker Instructions: Discharge to [facility]. Forms: Portal Instructions Discharge Date/Time: 04/21/23 14:46
== END 2023-04-21 14:46 | DRG 639 ==
LOC: ER 22:45 → ICU 04-20 15:10
PROVIDERS: Registered Nurse; Admitting Provider Family Medicine; Emergency Provider Internal Medicine; PCP Internal Medicine; Visit Provider Family Medicine
DX: E09.649 Drug or chemical induced diabetes mellitus with hypoglycemia without coma (principal); E86.0 Dehydration; E78.5 Hyperlipidemia, unspecified; F03.90 Unspecified dementia, unspecified severity, without behavioral disturbance, psychotic disturbance, mood disturbance, and anxiety; Z79.02 Long term (current) use of antithrombotics/antiplatelets; Z79.84 Long term (current) use of oral hypoglycemic drugs; Z79.899 Other long term (current) drug therapy; Z79.01 Long term (current) use of anticoagulants; Z95.0 Presence of cardiac pacemaker; Z87.891 Personal history of nicotine dependence; Z91.81 History of falling; R06.03 Acute respiratory distress; R00.0 Tachycardia, unspecified; E87.6 Hypokalemia; D50.9 Iron deficiency anemia, unspecified; I48.91 Unspecified atrial fibrillation; I10 Essential (primary) hypertension; T38.3X5A Adverse effect of insulin and oral hypoglycemic [antidiabetic] drugs, initial encounter; Z79.82 Long term (current) use of aspirin; G47.30 Sleep apnea, unspecified
CPT/HCPCS: 36415; 36416; 70450; 71111; 72125; 80048; 80053; 81003; 82140; 82948; 84484; 85025; 93005; 97110; 97163; 97165; 97535; 99285; G0328; G0378